=== PATIENT | female | born 1960 | race Caucasian/White ===

== ENCOUNTER → 2016-06-07 | Outpatient (CLI) | payer MEDICARE ==
[~2016-06-07] MED LIST: *CXR; /CIPR75TA; ACET65TA; AMBIEN10 PO; AMO500 PO; AMOXIL875 PO; ASPI81TA85 PO; ASTELIN NASAL; AUG500 PO; BENZAMYCGE TOPICAL; BIRTH CONTROL; CAHNTIXC PO; CARV12.5 PO; CHAN0.5P PO; CIPRO500 PO; CLOP75TA2 PO; CRES40TA PO; CYCL10TA PO; DARVOCET-N PO; DARVON PO; DARVON-N1 PO; DOXYCYC100 PO; EFFE150C PO; EFFEXORXL1 PO; FERREX PO; FLECTOR TOPICAL; FOLI1TAB2 PO; HABITROL14 TOPICAL; HABITROL2 TOPICAL; HABITROL7 TOPICAL; LESCOLXL80 PO; LEVAQUI500 PO; LEVO25TA5 PO; LIDO5DIS36 TD; LOESTRIN24 PO; MICRONOR PO; MOTRIN6 PO; MOTRIN800 PO; NABU50TA PO; NAPR500T2 PO; NAPROSY500 PO; NEXIUM40 PO; NICODERM TOPICAL; NICORETTE PO; OMEP40CA2 PO; OMEPRAZ40 PO; OXYC1TAB15 PO; OXYC1TAB23 PO; PANT40TA2 PO; PHENERGA25 PO; PRAVACHOL4 PO; PREVACID30 PO; PREVMIS PO; PROM125TA PO; PROTONIX40 PO; PYRIDIU200 PO; REGLAN10 PO; ROBITUSSDM PO; ROBITUSSIN PO; SENOKOTTAB PO; SKELAXIN8 PO; SUCR1TA PO; TOPA50TA7 PO; TRAZ100T; TRAZ100T4 PO; TRAZODON10 PO; TYLENOL PO; TYLENOL#3 PO; TYLENOLCOD PO; ULTRAM50 PO; ULTRTA PO; VALI10TA PO; VALT500T PO; VENL100T; VENL225T PO; VICO5TAB; VICODIN PO; ZANTAC150 PO; ZOVI5CRE4 EXT; ZOVIRAXCR TOPICAL; [UNRECOGNIZED DRUG - CODE]; [UNRECOGNIZED DRUG - CODE] TOPICAL; [UNRECOGNIZED DRUG - OTHER] PO
--- NOTE | 2016-06-07 09:37 | REP ---
Digital diagnostic unilateral right breast mammography with CAD: History: 6-month followup right breast mammogram. Comparison mammography November 14, 2015 and November 12, 2015 showed a 1.1 cm elongate neodensity. Possible hematoma versus dilated duct versus other lesion. Comparison is also made with prior mammography from April 11, 2013. Today's mammographic findings: Routine views of the right breast are augmented by magnified focal spot compression CC, MLO and true MLO views the right breast. The previously noted 1 cm inferomedial quadrant mammographic opacity has resolved. Scattered mild fibroglandular elements are again seen in a pattern which is unchanged from the 2013 prior study. There are normal appearing lymph nodes in the right axilla. No neodensity, spiculation, architectural distortion or microcalcification is observed. No worrisome skin change is seen. Impression: BIRADS category 2 benign right breast mammography. The previously noted density has resolved mammographically. Routine bilateral screening mammography recommended in October or November of 2016. This mammogram was interpreted with the aid of an FDA-approved computer-aided detection system. The patient states she/he had a clinical breast exam in 6 months ago. The patient letter being requested is M1. Signed by Aleksandr Mullins MD 06/07/2016 10:19 A
== END ==
LOC: M RAD 08:39
PROVIDERS: ATTEND Family Medicine
DX: R92.8 Other abnormal and inconclusive findings on diagnostic imaging of breast (principal)

== ENCOUNTER → 2016-08-05 | Outpatient (REF) | payer MEDICARE ==
[2016-08-05 12:44] LABS: BASO % 0.6 % (0.0-1.0); EOS # 0.4 K/mm3 (0.0-0.50); EOS % 5.1 % (0.0-3.0); LARGE UNSTAINED CELL # 0.2 K/mm3 (0.0-0.4); LYMPH # 2.4 K/mm3 (1.5-4.5); LYMPH % 31.2 % (24.0-44.0); MEAN CORPUSCULAR HEMOGLOBIN 32.1 pg (27.0-33.0); MEAN CORPUSCULAR HGB CONC 32.6 g/dl (32.0-36.5); MEAN CORPUSCULAR VOLUME 98.7 fl (80.0-96.0); MONO # 0.6 K/mm3 (0.0-0.8); MONO % 7.7 % (0.0-5.0); NEUTROPHILS # 4.1 K/mm3 (1.8-7.7); NEUTROPHILS % 53.4 % (36.0-66.0); PLATELET COUNT, AUTOMATED 273 k/mm3 (150-450); RED CELL DISTRIBUTION WIDTH 13.6 % (11.5-14.5); WHITE BLOOD COUNT 7.8 K/mm3 (4.0-10.0)
[2016-08-05 12:48] LABS: ALBUMIN 3.8 GM/DL (3.2-5.2); ALBUMIN/GLOBULIN RATIO 1.15 (1.00-1.93); ALKALINE PHOSPHATASE 100 U/L (45-117); ALT/SGPT 21 U/L (12-78); ANION GAP 6 MEQ/L (8-16); AST/SGOT 15 U/L (15-37); BILIRUBIN,TOTAL 0.4 MG/DL (0.2-1.0); BLOOD UREA NITROGEN 13 MG/DL (7-18); CALCIUM LEVEL 9.4 MG/DL (8.5-10.1); CARBON DIOXIDE LEVEL 30 MEQ/L (21-32); CHLORIDE LEVEL 107 MEQ/L (98-107); CHOLESTEROL LEVEL 190 MG/DL (<200); CREATININE FOR GFR 0.95 MG/DL (0.55-1.02); GLOMERULAR FILTRATION RATE > 60.0 (>51); GLUCOSE, FASTING 113 MG/DL (70-105); MAGNESIUM LEVEL 2.3 MG/DL (1.8-2.4); POTASSIUM SERUM 4.3 MEQ/L (3.5-5.1); SODIUM LEVEL 143 MEQ/L (136-145); TOTAL PROTEIN 7.1 GM/DL (6.4-8.2); TRIGLYCERIDES LEVEL 181 MG/DL (<150)
== END ==
LOC: M SFHCPLAZ 08:10
PROVIDERS: ATTEND Family Medicine
DX: K27.9 Peptic ulcer, site unspecified, unspecified as acute or chronic, without hemorrhage or perforation (principal); E78.5 Hyperlipidemia, unspecified

== ENCOUNTER → 2016-11-03 | Outpatient (CLI) | payer MEDICARE ==
--- NOTE | 2016-11-03 14:49 | REP ---
REASON: Bilateral pain. PRIOR: Right knee 07/03/2010. Five views of the right knee show lateral compartmental marginal osteophytosis increased from the prior exam. The compartments are symmetric and well maintained. There is no acute fracture or dislocation. IMPRESSION: Progressed lateral compartment degenerative changes, as described above. Signed by Can Lopez DO 11/03/2016 03:34 P
== END ==
LOC: M RAD 11:10
PROVIDERS: ATTEND Physician Assistant Medical
DX: M17.0 Bilateral primary osteoarthritis of knee (principal)

== ENCOUNTER → 2016-11-30 | Outpatient (CLI) | payer MEDICARE ==
[~2016-11-30] MED LIST changes: -FOLI1TAB2 PO; +FOLI1TAB4 PO; -LIDO5DIS36 TD; +LIDO5DIS41 TD; +NABU500T PO; -NABU50TA PO; -NAPR500T2 PO; +NAPR500T3 PO; +PROM12.55 PO; -PROM125TA PO; -TOPA50TA7 PO; +TOPA50TA8 PO; +TRAZ-136 PO; -TRAZ100T4 PO
--- NOTE | 2016-11-30 14:16 | REPMRS ---
Patient History The patient states she has not had a clinical breast exam in over a year. Patient is postmenopausal. Family history of prostate cancer in 2 maternal uncles and colorectal cancer in maternal uncle. Digital Woman Screen Mammo: November 30, 2016 - Exam #: [id number] Bilateral CC and MLO view(s) were taken. Technologist: Ashlie Mendoza, Technologist Prior study comparison: June 07, 2016, right breast digital mammo diagnostic unilateral, performed at [facility]. November 14, 2015, right breast digital mammo diagnostic unilateral, performed at [facility]. FINDINGS: There are scattered fibroglandular densities. There has been no change in the appearance of the mammogram from the prior studies. There is a mild amount of scattered fibroglandular density which is fairly symmetric. There is no interval development of dominant mass, architectural distortion, or clustered microcalcification suggestive of malignancy. ASSESSMENT: BI-RADS/ACR category 1 mammogram. Negative. Recommendation Routine screening mammogram in 1 year (for women over age 40). This mammogram was interpreted with the aid of an FDA-approved computer-aided dectection system. Electronically Signed By: Moreno Mullins MD 11/30/16 [id number]
== END ==
LOC: M WHC 12:55
PROVIDERS: ATTEND Family Medicine
DX: Z12.31 Encounter for screening mammogram for malignant neoplasm of breast (principal); Z78.0 Asymptomatic menopausal state

== ENCOUNTER → 2016-12-21 | Outpatient (REF) | payer MEDICARE ==
[2016-12-21 12:46] LABS: BASO % 0.5 % (0.0-1.0); EOS # 0.3 K/mm3 (0.0-0.50); EOS % 3.8 % (0.0-3.0); LARGE UNSTAINED CELL # 0.1 K/mm3 (0.0-0.4); LYMPH # 2.4 K/mm3 (1.5-4.5); LYMPH % 27.1 % (24.0-44.0); MEAN CORPUSCULAR HEMOGLOBIN 32.9 pg (27.0-33.0); MEAN CORPUSCULAR HGB CONC 33.1 g/dl (32.0-36.5); MEAN CORPUSCULAR VOLUME 99.4 fl (80.0-96.0); MONO # 0.7 K/mm3 (0.0-0.8); MONO % 8.5 % (0.0-5.0); NEUTROPHILS # 5.1 K/mm3 (1.8-7.7); NEUTROPHILS % 59.1 % (36.0-66.0); PLATELET COUNT, AUTOMATED 242 k/mm3 (150-450); RED CELL DISTRIBUTION WIDTH 13.8 % (11.5-14.5); WHITE BLOOD COUNT 8.6 K/mm3 (4.0-10.0)
[2016-12-21 13:27] LABS: MICROSCOPIC INDICATED? MAN YES (NO)
[2016-12-21 13:32] LABS: MICROSCOPIC EXAM PERFORMED; RBC, URINE 0-1 /hpf (0-3); SQUAMOUS EPITHELIAL CELL URINE SMALL AMOUNT /hpf (SMALL AMT); WBC, URINE 0-1 /hpf (0-3)
[2016-12-21 13:33] LABS: BACTERIA, URINE NONE SEEN; HYALINE CAST, URINE NONE SEEN /lpf (0-1); TRANSITIONAL EPI CELLS, URINE SMALL AMOUNT /hpf
[2016-12-21 14:38] LABS: ALBUMIN 3.6 GM/DL (3.2-5.2); ALBUMIN/GLOBULIN RATIO 1.13 (1.00-1.93); ALKALINE PHOSPHATASE 105 U/L (45-117); ALT/SGPT 19 U/L (12-78); ANION GAP 6 MEQ/L (8-16); AST/SGOT 10 U/L (15-37); BILIRUBIN,TOTAL 0.3 MG/DL (0.2-1.0); BLOOD UREA NITROGEN 16 MG/DL (7-18); CALCIUM LEVEL 9.2 MG/DL (8.5-10.1); CARBON DIOXIDE LEVEL 26 MEQ/L (21-32); CHLORIDE LEVEL 112 MEQ/L (98-107); CREATININE FOR GFR 1.01 MG/DL (0.55-1.02); FREE T4 0.99 NG/DL (0.76-1.46); GLOMERULAR FILTRATION RATE > 60.0 (>51); GLUCOSE, FASTING 105 MG/DL (70-105); POTASSIUM SERUM 4.3 MEQ/L (3.5-5.1); SODIUM LEVEL 144 MEQ/L (136-145); TOTAL PROTEIN 6.8 GM/DL (6.4-8.2)
[2016-12-26 14:08] LABS: BENZODIAZEPINES, URINE SCREEN See Final Results ng/mL (Cutoff=200); METHADONE, URINE SCREEN Negative ng/mL (Cutoff=300); OXYCODONE URINE Positive (.); pH, URINE 5.5 (4.5-8.9)
== END ==
LOC: M SFHCADAM 07:56
PROVIDERS: ATTEND Family Medicine
DX: K27.9 Peptic ulcer, site unspecified, unspecified as acute or chronic, without hemorrhage or perforation (principal); E03.9 Hypothyroidism, unspecified; R73.01 Impaired fasting glucose; M17.11 Unilateral primary osteoarthritis, right knee; Z79.891 Long term (current) use of opiate analgesic

== ENCOUNTER → 2016-12-21 | Outpatient (REF) | payer MEDICARE ==
[2016-12-21 13:55] LABS: BASO % 0.3 % (0.0-1.0); EOS # 0.3 K/mm3 (0.0-0.50); EOS % 3.8 % (0.0-3.0); LARGE UNSTAINED CELL # 0.2 K/mm3 (0.0-0.4); LYMPH # 2.6 K/mm3 (1.5-4.5); LYMPH % 27.6 % (24.0-44.0); MEAN CORPUSCULAR HEMOGLOBIN 32.6 pg (27.0-33.0); MEAN CORPUSCULAR HGB CONC 32.8 g/dl (32.0-36.5); MEAN CORPUSCULAR VOLUME 99.4 fl (80.0-96.0); MONO # 0.7 K/mm3 (0.0-0.8); MONO % 8.2 % (0.0-5.0); NEUTROPHILS # 5.2 K/mm3 (1.8-7.7); NEUTROPHILS % 58.2 % (36.0-66.0); PLATELET COUNT, AUTOMATED 246 k/mm3 (150-450); RED CELL DISTRIBUTION WIDTH 13.8 % (11.5-14.5); WHITE BLOOD COUNT 8.9 K/mm3 (4.0-10.0)
[2016-12-21 15:13] LABS: ERYTHROCYTE SEDIMENTATION RATE 4 mm/hr (0-30)
[2016-12-23 00:07] LABS: Lyme Disease IgG/IgM Antibodie <0.91 ISR (0.00-0.90); Lyme Disease IgM Ab Quantitati <0.80 index (0.00-0.79)
== END ==
LOC: M LABDRWAD 13:13
PROVIDERS: ATTEND Physician Assistant
DX: M17.11 Unilateral primary osteoarthritis, right knee (principal)

== ENCOUNTER → 2017-04-01 | Outpatient (REF) | payer MEDICARE ==
[2017-04-01 13:26] LABS: BASO # 0.1 10^3/uL (0.0-0.2); BASO % 0.5 % (0.0-1.0); EOS # 0.3 10^3/uL (0.0-0.50); EOS % 3.3 % (0.0-3.0); IMMATURE GRANULOCYTE % 0.4 % (0-0); LYMPH # 3.7 10^3/uL (1.5-4.5); LYMPH % 39.3 % (24.0-44.0); MEAN CORPUSCULAR HEMOGLOBIN 31.8 pg (27.0-33.0); MEAN CORPUSCULAR HGB CONC 32.8 g/dl (32.0-36.5); MEAN CORPUSCULAR VOLUME 96.9 fl (80.0-96.0); MONO # 1.1 10^3/uL (0.0-0.8); MONO % 11.5 % (0.0-5.0); NEUTROPHILS # 4.3 10^3/uL (1.8-7.7); PLATELET COUNT, AUTOMATED 253 10^3/uL (150-450); RED CELL DISTRIBUTION WIDTH 14.3 % (11.5-14.5); WHITE BLOOD COUNT 9.5 10^3/uL (4.0-10.0)
== END ==
LOC: M SFHCPLAZ 11:29
PROVIDERS: ATTEND Physician Assistant Medical
DX: K27.9 Peptic ulcer, site unspecified, unspecified as acute or chronic, without hemorrhage or perforation (principal)
CPT/HCPCS: 85025; G0463

== ENCOUNTER → 2017-05-18 | Outpatient (REF) | payer MEDICARE | LOC: M LAB REF 12:16 | DX: M54.5 Low back pain (principal) | CPT/HCPCS: 87086 ==

== ENCOUNTER → 2017-05-19 | Outpatient (REF) | payer MEDICARE ==
[2017-05-19 14:20] LABS: HEMATOCRIT 46.8 % (36.0-47.0)
[2017-05-19 14:41] LABS: ALBUMIN 4.4 GM/DL (3.2-5.2); ALBUMIN/GLOBULIN RATIO 1.38 (1.00-1.93); ALKALINE PHOSPHATASE 107 U/L (45-117); ALT/SGPT 20 U/L (12-78); ANION GAP 7 MEQ/L (8-16); AST/SGOT 13 U/L (7-37); BILIRUBIN,TOTAL 0.4 MG/DL (0.2-1.0); BLOOD UREA NITROGEN 14 MG/DL (7-18); C REACTIVE PROTEIN QUANTITATIV < 0.30 MG/DL (0.00-0.30); CALCIUM LEVEL 9.5 MG/DL (8.5-10.1); CARBON DIOXIDE LEVEL 27 MEQ/L (21-32); CHLORIDE LEVEL 108 MEQ/L (98-107); CHOLESTEROL LEVEL 156 MG/DL (<200); CHOLESTEROL RISK RATIO 2.476 (<5); CPK CREATINE PHOSPHOKINASE 54 U/L (26-192); CREATININE FOR GFR 0.95 MG/DL (0.55-1.02); GLOMERULAR FILTRATION RATE > 60.0 (>51); GLUCOSE, FASTING 104 MG/DL (70-105); HDL CHOLESTEROL 63 MG/DL (>40); LDL CHOLESTEROL 67.4 MG/DL (<100); MAGNESIUM LEVEL 2.5 MG/DL (1.8-2.4); NON-HDL-C 93 MG/DL; POTASSIUM SERUM 4.3 MEQ/L (3.5-5.1); SODIUM LEVEL 142 MEQ/L (136-145); TOTAL PROTEIN 7.6 GM/DL (6.4-8.2); TRIGLYCERIDES LEVEL 128 MG/DL (<150)
[2017-05-19 14:51] LABS: VITAMIN B12 LEVEL 761 PG/ML (247-911)
[2017-05-20 11:49] LABS: PRETREATED FOLATE FOR RBCFOL 13.6 NG/ML; RBC FOLATE 610.3 NG/ML (280-791)
== END ==
LOC: M SFHCPLAZ 09:54
DX: E78.5 Hyperlipidemia, unspecified (principal); I10 Essential (primary) hypertension; E53.8 Deficiency of other specified B group vitamins
CPT/HCPCS: 82550

== ENCOUNTER → 2017-05-25 | Outpatient (CLI) | payer MEDICARE | LOC: M RAD 14:57 | DX: N20.0 Calculus of kidney (principal); N28.1 Cyst of kidney, acquired; K57.30 Diverticulosis of large intestine without perforation or abscess without bleeding | CPT/HCPCS: 74176 ==

== ENCOUNTER → 2017-07-06 | Outpatient (CLI) | payer MEDICARE | LOC: M RAD 10:55 | DX: Z12.2 Encounter for screening for malignant neoplasm of respiratory organs (principal); Z87.891 Personal history of nicotine dependence | CPT/HCPCS: G0297 ==

== ENCOUNTER → 2017-08-29 | Outpatient (REF) | payer MEDICARE ==
[2017-08-29 15:45] LABS: BASO # 0.1 10^3/uL (0.0-0.2); BASO % 0.5 % (0.0-1.0); EOS # 0.3 10^3/uL (0.0-0.50); EOS % 2.5 % (0.0-3.0); HEMOGLOBIN 15.7 g/dl (12.0-15.5); IMMATURE GRANULOCYTE % 0.3 % (0-3.0); LYMPH # 4.4 10^3/uL (1.5-4.5); LYMPH % 39.6 % (24.0-44.0); MEAN CORPUSCULAR HEMOGLOBIN 31.7 pg (27.0-33.0); MEAN CORPUSCULAR HGB CONC 32.7 g/dl (32.0-36.5); MONO # 1.4 10^3/uL (0.0-0.8); MONO % 12.6 % (0.0-5.0); NEUTROPHILS # 4.9 10^3/uL (1.8-7.7); NEUTROPHILS % 44.5 % (36.0-66.0); PLATELET COUNT, AUTOMATED 245 10^3/uL (150-450); RED BLOOD COUNT 4.95 10^6/uL (4.00-5.40); RED CELL DISTRIBUTION WIDTH 13.9 % (11.5-14.5); WHITE BLOOD COUNT 11.1 10^3/uL (4.0-10.0)
[2017-08-29 15:47] LABS: APPEARANCE, URINE CLEAR (CLEAR); BACTERIA, URINE AUTO NEGATIVE (NEGATIVE); BILIRUBIN, URINE AUTO NEGATIVE (NEGATIVE); BLOOD, URINE BLOOD 1+ (NEGATIVE); COLOR, URINE YELLOW (YELLOW); GLUCOSE, URINE (UA) AUTO NEGATIVE (NEGATIVE); KETONE, URINE AUTO NEGATIVE (NEGATIVE); LEUKOCYTE ESTERASE, URINE AUTO NEGATIVE (NEGATIVE); NITRITE, URINE AUTO NEGATIVE (NEGATIVE); PROTEIN, URINE AUTO NEGATIVE (NEGATIVE); RBC, URINE AUTO 2 /HPF (0-3); SPECIFIC GRAVITY URINE AUTO 1.017 (1.002-1.035); SQUAMOUS EPITHELIAL CELL UR AU 0 /HPF (0-6); UROBILINOGEN, URINE AUTO 0.2 mg/dL (0.0-2.0); WBC, URINE AUTO 0 /HPF (0-3)
[2017-08-29 16:05] LABS: ALBUMIN 3.7 GM/DL (3.2-5.2); ALBUMIN/GLOBULIN RATIO 1.19 (1.00-1.93); ALKALINE PHOSPHATASE 111 U/L (45-117); ALT/SGPT 15 U/L (12-78); ANION GAP 7 MEQ/L (8-16); AST/SGOT 13 U/L (7-37); BILIRUBIN,TOTAL 0.2 MG/DL (0.2-1.0); BLOOD UREA NITROGEN 13 MG/DL (7-18); CALCIUM LEVEL 8.9 MG/DL (8.5-10.1); CARBON DIOXIDE LEVEL 28 MEQ/L (21-32); CHLORIDE LEVEL 109 MEQ/L (98-107); CREATININE FOR GFR 0.72 MG/DL (0.55-1.30); GLOMERULAR FILTRATION RATE > 60.0 (>51); GLUCOSE, FASTING 69 MG/DL (70-100); POTASSIUM SERUM 3.9 MEQ/L (3.5-5.1); SODIUM LEVEL 144 MEQ/L (136-145); TOTAL PROTEIN 6.8 GM/DL (6.4-8.2)
== END ==
LOC: M SFHCPLAZ 12:15
DX: R10.31 Right lower quadrant pain (principal); Z87.442 Personal history of urinary calculi
CPT/HCPCS: 80053

== ENCOUNTER 2017-09-01 12:10 | Emergency (ER) | payer MEDICARE ==
[2017-09-01 13:05] LABS: BASO # 0.1 10^3/uL (0.0-0.2); BASO % 0.5 % (0.0-1.0); EOS # 0.3 10^3/uL (0.0-0.50); EOS % 2.7 % (0.0-3.0); HEMATOCRIT 49.6 % (36.0-47.0); HEMOGLOBIN 16.7 g/dl (12.0-15.5); IMMATURE GRANULOCYTE % 0.3 % (0-3.0); LYMPH # 4.3 10^3/uL (1.5-4.5); MEAN CORPUSCULAR HEMOGLOBIN 32.5 pg (27.0-33.0); MEAN CORPUSCULAR HGB CONC 33.7 g/dl (32.0-36.5); MEAN CORPUSCULAR VOLUME 96.5 fl (80.0-96.0); MONO # 1.2 10^3/uL (0.0-0.8); MONO % 12.6 % (0.0-5.0); NEUTROPHILS # 3.7 10^3/uL (1.8-7.7); NEUTROPHILS % 38.9 % (36.0-66.0); PLATELET COUNT, AUTOMATED 253 10^3/uL (150-450); RED BLOOD COUNT 5.14 10^6/uL (4.00-5.40); WHITE BLOOD COUNT 9.6 10^3/uL (4.0-10.0)
[2017-09-01] MEDS: MORPHINE 4 MG/ML 1ML VIAL/SYRINGE (J2270) IV ×2 (13:08→14:08)
[2017-09-01] MEDS: NS 1,000 ML IV (13:08)
[2017-09-01 14:06] LABS: ALBUMIN 3.9 GM/DL (3.2-5.2); ALBUMIN/GLOBULIN RATIO 1.03 (1.00-1.93); ALKALINE PHOSPHATASE 123 U/L (45-117); ALT/SGPT 23 U/L (12-78); AMYLASE 92 U/L (25-115); ANION GAP 5 MEQ/L (8-16); AST/SGOT 20 U/L (7-37); BILIRUBIN,DIRECT < 0.1 MG/DL (0.0-0.2); BILIRUBIN,TOTAL 0.3 MG/DL (0.2-1.0); BLOOD UREA NITROGEN 12 MG/DL (7-18); CALCIUM LEVEL 9.3 MG/DL (8.5-10.1); CARBON DIOXIDE LEVEL 27 MEQ/L (21-32); CHLORIDE LEVEL 110 MEQ/L (98-107); GLOMERULAR FILTRATION RATE > 60.0 (>51); GLUCOSE, FASTING 96 MG/DL (70-100); LIPASE 421 U/L (73-393); SODIUM LEVEL 142 MEQ/L (136-145); TOTAL PROTEIN 7.7 GM/DL (6.4-8.2)
[2017-09-01 14:15] LABS: CALCIUM OXALATE CRYSTALS RFX SMALL; KETONE, URINE AUTO RFX NEGATIVE (NEGATIVE); LEUKOCYTE ESTERASE UR AUTO RFX NEGATIVE (NEGATIVE); MUCUS, URINE RFX SMALL (NEGATIVE); NITRITE, URINE AUTO RFX NEGATIVE (NEGATIVE); RBC, URINE AUTO RFX 4 /HPF (0-3); SPECIFIC GRAVITY UR AUTO RFX 1.024 (1.002-1.035); SQUAM EPITHELIAL CELL UR AURFX 0 /HPF (0-6); WBC, URINE AUTO RFX 1 /HPF (0-3)
[2017-09-01] MEDS: CIPROFLOXACIN 500 MG TAB PO (14:37)
== END 2017-09-01 14:45 | disposition home or self-care (01) ==
LOC: M ED 12:10
DX: N20.2 Calculus of kidney with calculus of ureter (principal); N23 Unspecified renal colic; N28.1 Cyst of kidney, acquired; F03.90 Unspecified dementia, unspecified severity, without behavioral disturbance, psychotic disturbance, mood disturbance, and anxiety; I34.1 Nonrheumatic mitral (valve) prolapse; K21.9 Gastro-esophageal reflux disease without esophagitis; G47.33 Obstructive sleep apnea (adult) (pediatric); E78.70 Disorder of bile acid and cholesterol metabolism, unspecified; Z87.442 Personal history of urinary calculi; Z86.73 Personal history of transient ischemic attack (TIA), and cerebral infarction without residual deficits; Z98.890 Other specified postprocedural states; Z90.81 Acquired absence of spleen; Z88.8 Allergy status to other drugs, medicaments and biological substances; Z88.2 Allergy status to sulfonamides; Z79.890 Hormone replacement therapy; Z79.899 Other long term (current) drug therapy
CPT/HCPCS: J2270

== ENCOUNTER 2017-09-04 11:03 | Emergency (ER) | payer MEDICARE ==
[2017-09-04 12:40] LABS: KETONE, URINE AUTO RFX TRACE mg/dL (NEGATIVE); LEUKOCYTE ESTERASE UR AUTO RFX NEGATIVE (NEGATIVE); MUCUS, URINE RFX SMALL (NEGATIVE); NITRITE, URINE AUTO RFX NEGATIVE (NEGATIVE); RBC, URINE AUTO RFX 4 /HPF (0-3); SPECIFIC GRAVITY UR AUTO RFX 1.028 (1.002-1.035); SQUAM EPITHELIAL CELL UR AURFX 0 /HPF (0-6); WBC, URINE AUTO RFX 1 /HPF (0-3)
== END 2017-09-04 14:10 | disposition home or self-care (01) ==
LOC: M ED 11:03
DX: R10.9 Unspecified abdominal pain (principal); N28.1 Cyst of kidney, acquired; E03.9 Hypothyroidism, unspecified; B00.9 Herpesviral infection, unspecified; F43.10 Post-traumatic stress disorder, unspecified; F03.90 Unspecified dementia, unspecified severity, without behavioral disturbance, psychotic disturbance, mood disturbance, and anxiety; F33.9 Major depressive disorder, recurrent, unspecified; F41.9 Anxiety disorder, unspecified; F19.11 Other psychoactive substance abuse, in remission; Z79.890 Hormone replacement therapy; Z79.01 Long term (current) use of anticoagulants; Z79.899 Other long term (current) drug therapy; Z88.8 Allergy status to other drugs, medicaments and biological substances; Z88.2 Allergy status to sulfonamides; Z86.73 Personal history of transient ischemic attack (TIA), and cerebral infarction without residual deficits; Z87.442 Personal history of urinary calculi; Z86.79 Personal history of other diseases of the circulatory system; Z98.890 Other specified postprocedural states
CPT/HCPCS: 76775

== ENCOUNTER → 2017-09-27 | Outpatient (REF) | payer MEDICARE ==
[2017-09-27 13:33] LABS: APPEARANCE, URINE CLEAR (CLEAR); BACTERIA, URINE AUTO NEGATIVE (NEGATIVE); BILIRUBIN, URINE AUTO NEGATIVE (NEGATIVE); BLOOD, URINE BLOOD 2+ (NEGATIVE); COLOR, URINE STRAW (YELLOW); GLUCOSE, URINE (UA) AUTO NEGATIVE (NEGATIVE); KETONE, URINE AUTO NEGATIVE (NEGATIVE); LEUKOCYTE ESTERASE, URINE AUTO NEGATIVE (NEGATIVE); NITRITE, URINE AUTO NEGATIVE (NEGATIVE); PROTEIN, URINE AUTO NEGATIVE (NEGATIVE); RBC, URINE AUTO 0 /HPF (0-3); SPECIFIC GRAVITY URINE AUTO 1.006 (1.002-1.035); SQUAMOUS EPITHELIAL CELL UR AU 0 /HPF (0-6); UROBILINOGEN, URINE AUTO 0.2 mg/dL (0.0-2.0); WBC, URINE AUTO 0 /HPF (0-3)
== END ==
LOC: M SMT 13:13
DX: R30.0 Dysuria (principal)
CPT/HCPCS: 81001

== ENCOUNTER → 2017-10-14 | Outpatient (REF) | payer MEDICARE ==
[2017-10-14 12:33] LABS: BASO # 0.1 10^3/uL (0.0-0.2); BASO % 0.6 % (0.0-1.0); EOS # 0.4 10^3/uL (0.0-0.50); EOS % 4.3 % (0.0-3.0); HEMATOCRIT 50.8 % (36.0-47.0); HEMOGLOBIN 16.9 g/dl (12.0-15.5); IMMATURE GRANULOCYTE % 0.1 % (0-3.0); LYMPH # 2.7 10^3/uL (1.5-4.5); LYMPH % 33.5 % (24.0-44.0); MEAN CORPUSCULAR HEMOGLOBIN 32.1 pg (27.0-33.0); MEAN CORPUSCULAR HGB CONC 33.3 g/dl (32.0-36.5); MEAN CORPUSCULAR VOLUME 96.6 fl (80.0-96.0); MONO # 0.8 10^3/uL (0.0-0.8); MONO % 9.7 % (0.0-5.0); NEUTROPHILS # 4.2 10^3/uL (1.8-7.7); NEUTROPHILS % 51.8 % (36.0-66.0); PLATELET COUNT, AUTOMATED 273 10^3/uL (150-450); RED BLOOD COUNT 5.26 10^6/uL (4.00-5.40); RED CELL DISTRIBUTION WIDTH 14.6 % (11.5-14.5); WHITE BLOOD COUNT 8.1 10^3/uL (4.0-10.0)
[2017-10-14 12:36] LABS: BACTERIA, URINE AUTO NEGATIVE (NEGATIVE); MUCUS, URINE SMALL (NEGATIVE); RBC, URINE AUTO 4 /HPF (0-3); SQUAMOUS EPITHELIAL CELL UR AU 1 /HPF (0-6); WBC, URINE AUTO 1 /HPF (0-3)
[2017-10-14 12:54] LABS: ALBUMIN 3.8 GM/DL (3.2-5.2); ALBUMIN/GLOBULIN RATIO 1.15 (1.00-1.93); ALKALINE PHOSPHATASE 114 U/L (45-117); ALT/SGPT 21 U/L (12-78); ANION GAP 5 MEQ/L (8-16); AST/SGOT 15 U/L (7-37); BILIRUBIN,TOTAL 0.2 MG/DL (0.2-1.0); BLOOD UREA NITROGEN 15 MG/DL (7-18); CALCIUM LEVEL 8.9 MG/DL (8.5-10.1); CARBON DIOXIDE LEVEL 27 MEQ/L (21-32); CHLORIDE LEVEL 111 MEQ/L (98-107); CREATININE FOR GFR 0.83 MG/DL (0.55-1.30); FREE T4 0.92 NG/DL (0.76-1.46); GLOMERULAR FILTRATION RATE > 60.0 (>51); GLUCOSE, FASTING 105 MG/DL (70-100); POTASSIUM SERUM 4.7 MEQ/L (3.5-5.1); SODIUM LEVEL 143 MEQ/L (136-145); TOTAL PROTEIN 7.1 GM/DL (6.4-8.2)
[2017-10-14 13:11] LABS: ESTIMATED AVERAGE GLUCOSE 137 MG/DL (60-110); HEMOGLOBIN A1c 6.4 %
[2017-10-15 14:10] LABS: INSULIN LEVEL 22.9 uIU/mL (2.6-24.9)
== END ==
LOC: M SFHCADAM 07:13
DX: E78.5 Hyperlipidemia, unspecified (principal); R73.01 Impaired fasting glucose; E03.9 Hypothyroidism, unspecified; R31.29 Other microscopic hematuria
CPT/HCPCS: 83525

== ENCOUNTER → 2018-01-04 | Outpatient (CLI) | payer MEDICARE | LOC: M SMT 13:11 | DX: M25.711 Osteophyte, right shoulder (principal); M79.601 Pain in right arm | CPT/HCPCS: 73060 ==

== ENCOUNTER → 2018-02-20 | Outpatient (REF) | payer MEDICARE ==
[2018-02-20 12:53] LABS: HEMATOCRIT 49.8 % (36.0-47.0)
[2018-02-20 12:59] LABS: APPEARANCE, URINE HAZY (CLEAR); BACTERIA, URINE AUTO NEGATIVE (NEGATIVE); BILIRUBIN, URINE AUTO NEGATIVE (NEGATIVE); BLOOD, URINE BLOOD 1+ (NEGATIVE); COLOR, URINE YELLOW (YELLOW); GLUCOSE, URINE (UA) AUTO NEGATIVE (NEGATIVE); KETONE, URINE AUTO TRACE mg/dL (NEGATIVE); LEUKOCYTE ESTERASE, URINE AUTO NEGATIVE (NEGATIVE); MUCUS, URINE SMALL (NEGATIVE); NITRITE, URINE AUTO NEGATIVE (NEGATIVE); PROTEIN, URINE AUTO NEGATIVE (NEGATIVE); RBC, URINE AUTO 4 /HPF (0-3); SPECIFIC GRAVITY URINE AUTO 1.019 (1.002-1.035); SQUAMOUS EPITHELIAL CELL UR AU 0 /HPF (0-6); WBC, URINE AUTO 0 /HPF (0-3)
[2018-02-20 13:35] LABS: ALBUMIN 3.9 GM/DL (3.2-5.2); ALBUMIN/GLOBULIN RATIO 1.18 (1.00-1.93); ALKALINE PHOSPHATASE 101 U/L (45-117); ALT/SGPT 19 U/L (12-78); ANION GAP 6 MEQ/L (8-16); AST/SGOT 18 U/L (7-37); BILIRUBIN,TOTAL 0.3 MG/DL (0.2-1.0); BLOOD UREA NITROGEN 10 MG/DL (7-18); C REACTIVE PROTEIN QUANTITATIV < 0.30 MG/DL (0.00-0.30); CALCIUM LEVEL 8.8 MG/DL (8.5-10.1); CARBON DIOXIDE LEVEL 29 MEQ/L (21-32); CHLORIDE LEVEL 107 MEQ/L (98-107); CHOLESTEROL LEVEL 133 MG/DL (<200); CHOLESTEROL RISK RATIO 2.216 (<5); GLOMERULAR FILTRATION RATE > 60.0 (>51); GLUCOSE, FASTING 109 MG/DL (70-100); HDL CHOLESTEROL 60 MG/DL (>40); LDL CHOLESTEROL 56 MG/DL (<100); NON-HDL-C 73 MG/DL; POTASSIUM SERUM 4.3 MEQ/L (3.5-5.1); SODIUM LEVEL 142 MEQ/L (136-145); TOTAL PROTEIN 7.2 GM/DL (6.4-8.2); TRIGLYCERIDES LEVEL 85 MG/DL (<150)
[2018-02-20 14:01] LABS: ESTIMATED AVERAGE GLUCOSE 123 MG/DL (60-110); HEMOGLOBIN A1c 5.9 %
[2018-02-20 14:06] LABS: MALB URINE SIEMENS 16.8 MG/L
[2018-02-20 14:09] LABS: MAU/CREAT RATIO 9.7 MCG/MG (0.0-30.0)
[2018-02-21 11:04] LABS: PRETREATED FOLATE FOR RBCFOL 13.7 NG/ML; RBC FOLATE 577.7 NG/ML (280-791)
== END ==
LOC: M LABDRAW1 12:37
DX: E78.5 Hyperlipidemia, unspecified (principal); R73.01 Impaired fasting glucose; M47.814 Spondylosis without myelopathy or radiculopathy, thoracic region; E53.8 Deficiency of other specified B group vitamins
CPT/HCPCS: 82607

== ENCOUNTER → 2018-03-28 | Outpatient (REF) | payer MEDICARE | LOC: M LAB REF 12:23 | DX: R30.0 Dysuria (principal) | CPT/HCPCS: 87086 ==

== ENCOUNTER → 2018-05-06 | Outpatient (CLI) | payer MEDICARE ==
[~2018-05-06] MED LIST changes: +ACET30TAB PO; +CIPR-249 PO; +DIAZ10TA2 PO; -EFFE150C PO; +EFFE150C2 PO; +FOLI1TAB11 PO; -FOLI1TAB4 PO; +NABU-126 PO; -NABU500T PO; +NAPR-885 PO; -NAPR500T3 PO; -PANT40TA2 PO; +PANT40TA3 PO; -PROM12.55 PO; +PROM12.56 PO; +PYRI1TAB5 PO; -TRAZ-136 PO; +TRAZ-163 PO
--- NOTE | 2018-05-10 09:54 | REP ---
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 Comparison MRI study thoracic spine November 06, 2009. TECHNIQUE: Sagittal and axial T1- and T2-weighted scans are acquired in the usual fashion with and without fat saturation. Sequences include spin echo, turbo spin-echo, and STIR imaging sequences. MRI FINDINGS: There is a small to moderate right central focal disc protrusion at the T7-T8 disc level which flattens the ventral margin of the thoracic cord and subtly displaces it dorsally. This is essentially unchanged. No central canal stenosis is noted at this level. The T7-8 disc remains narrowed. No cord lesion is seen. There is bulging and posterior disc spurring at the T8-9 disc level, which is also unchanged. Some diffuse disc bulging is seen at T9-10 which appears to be a new finding. No cord compression is seen. There is a tiny central disc protrusion at the T6-7. No cord compression is seen. No other thoracic disc protrusion is evident. Incidental note is made of a 4.7 cm cyst in the upper pole of the left kidney. IMPRESSION: Degenerative spondylosis changes in the thoracic spine with focal disc protrusions again noted at T7-8 and to a lesser extent, T6-7. There is disc bulging at the T8-9 and T9-10. A left renal cyst is noted. Electronically Signed by Aleksandr Mullins MD 05/10/2018 10:30 A
== END ==
LOC: M RAD 09:33
PROVIDERS: ATTEND Nurse Practitioner Family
DX: M47.814 Spondylosis without myelopathy or radiculopathy, thoracic region (principal); M51.24 Other intervertebral disc displacement, thoracic region; N28.1 Cyst of kidney, acquired

== ENCOUNTER → 2018-06-26 | Outpatient (REF) | payer MEDICARE ==
[2018-06-26 12:55] LABS: BASO # 0.1 10^3/uL (0.0-0.2); BASO % 0.5 % (0.0-1.0); EOS # 0.6 10^3/uL (0.0-0.50); EOS % 5.3 % (0.0-3.0); HEMATOCRIT 50.3 % (36.0-47.0); HEMOGLOBIN 16.5 g/dl (12.0-15.5); LYMPH # 3.6 10^3/uL (1.5-4.5); LYMPH % 34.2 % (24.0-44.0); MEAN CORPUSCULAR HEMOGLOBIN 32.4 pg (27.0-33.0); MEAN CORPUSCULAR HGB CONC 32.8 g/dl (32.0-36.5); MEAN CORPUSCULAR VOLUME 98.8 fl (80.0-96.0); MONO # 1.2 10^3/uL (0.0-0.8); MONO % 11.1 % (0.0-5.0); NEUTROPHILS # 5.1 10^3/uL (1.8-7.7); NEUTROPHILS % 48.5 % (36.0-66.0); PLATELET COUNT, AUTOMATED 224 10^3/uL (150-450); RED BLOOD COUNT 5.09 10^6/uL (4.00-5.40); WHITE BLOOD COUNT 10.6 10^3/uL (4.0-10.0)
[2018-06-26 12:57] LABS: ALBUMIN 3.8 GM/DL (3.2-5.2); ALT/SGPT 20 U/L (12-78); BILIRUBIN,TOTAL 0.3 MG/DL (0.2-1.0); BLOOD UREA NITROGEN 20 MG/DL (7-18); CALCIUM LEVEL 8.9 MG/DL (8.5-10.1); CARBON DIOXIDE LEVEL 32 MEQ/L (21-32); CHLORIDE LEVEL 103 MEQ/L (98-107); FREE T4 0.98 NG/DL (0.76-1.46); GLOMERULAR FILTRATION RATE > 60.0 (>51); GLUCOSE, FASTING 106 MG/DL (70-100); MAGNESIUM LEVEL 2.2 MG/DL (1.8-2.4); SODIUM LEVEL 140 MEQ/L (136-145)
[2018-06-26 13:04] LABS: HEMOGLOBIN A1c 6.3 %
== END ==
LOC: M SFHCADAM 07:57
PROVIDERS: ATTEND Family Medicine
DX: I10 Essential (primary) hypertension (principal); E03.9 Hypothyroidism, unspecified; R73.01 Impaired fasting glucose

== ENCOUNTER → 2018-07-20 | Outpatient (CLI) | payer MEDICARE ==
--- NOTE | 2018-07-20 15:37 | REP ---
Low-dose chest CT without contrast: History: Lung cancer screening. History of nicotine dependence. Comparison study: July 06, 2017. CT findings: There are linear fibrotic changes in both bases. Two stable benign adore fissural nodules are noted along the major fissure on the left in the perihilar region unchanged. No new pulmonary parenchymal nodule is appreciated. There are surgical clips in the left upper quadrant of the abdomen. Impression: Lung RADS category one negative screening CT study. Repeat screening recommended 1 year. Electronically Signed by Aleksandr Mullins MD 07/20/2018 03:28 P
== END ==
LOC: M RAD 12:46
PROVIDERS: ATTEND Family Medicine
DX: Z12.2 Encounter for screening for malignant neoplasm of respiratory organs (principal); Z87.891 Personal history of nicotine dependence

== ENCOUNTER → 2018-08-14 | Outpatient (REF) | payer MEDICARE | LOC: M LAB REF 10:40 | PROVIDERS: ATTEND Physician Assistant | DX: N39.0 Urinary tract infection, site not specified (principal) ==

== ENCOUNTER → 2018-09-29 | Outpatient (REF) | payer MEDICARE ==
[~2018-09-29] MED LIST changes: +ACET-716 PO; -ACET30TAB PO; -VENL225T PO; +VENL225T5 PO
[2018-09-29 13:52] LABS: BASO % 0.4 % (0.0-1.0); EOS # 0.2 10^3/uL (0.0-0.50); EOS % 2.4 % (0.0-3.0); HEMATOCRIT 50.5 % (36.0-47.0); HEMOGLOBIN 16.8 g/dl (12.0-15.5); LYMPH # 4.1 10^3/uL (1.5-4.5); LYMPH % 44.1 % (24.0-44.0); MEAN CORPUSCULAR HEMOGLOBIN 33.2 pg (27.0-33.0); MEAN CORPUSCULAR HGB CONC 33.3 g/dl (32.0-36.5); MEAN CORPUSCULAR VOLUME 99.8 fl (80.0-96.0); MONO # 1.1 10^3/uL (0.0-0.8); MONO % 12.3 % (0.0-5.0); NEUTROPHILS # 3.7 10^3/uL (1.8-7.7); NEUTROPHILS % 40.6 % (36.0-66.0); PLATELET COUNT, AUTOMATED 262 10^3/uL (150-450); RED BLOOD COUNT 5.06 10^6/uL (4.00-5.40); WHITE BLOOD COUNT 9.2 10^3/uL (4.0-10.0)
[2018-09-29 14:19] LABS: APPEARANCE, URINE CLEAR (CLEAR); BACTERIA, URINE AUTO NEGATIVE (NEGATIVE); BILIRUBIN, URINE AUTO NEGATIVE (NEGATIVE); BLOOD, URINE BLOOD 1+ (NEGATIVE); COLOR, URINE YELLOW (YELLOW); GLUCOSE, URINE (UA) AUTO NEGATIVE (NEGATIVE); KETONE, URINE AUTO NEGATIVE (NEGATIVE); LEUKOCYTE ESTERASE, URINE AUTO NEGATIVE (NEGATIVE); MUCUS, URINE SMALL (NEGATIVE); NITRITE, URINE AUTO NEGATIVE (NEGATIVE); PROTEIN, URINE AUTO NEGATIVE (NEGATIVE); RBC, URINE AUTO 10 /HPF (0-3); SPECIFIC GRAVITY URINE AUTO 1.028 (1.002-1.035); SQUAMOUS EPITHELIAL CELL UR AU 0 /HPF (0-6); UROBILINOGEN, URINE AUTO 0.2 mg/dL (0.0-2.0); WBC, URINE AUTO 0 /HPF (0-3)
[2018-09-29 14:23] LABS: ALBUMIN 3.9 GM/DL (3.2-5.2); ALT/SGPT 21 U/L (12-78); BILIRUBIN,TOTAL 0.4 MG/DL (0.2-1.0); BLOOD UREA NITROGEN 23 MG/DL (7-18); CALCIUM LEVEL 9.5 MG/DL (8.5-10.1); CARBON DIOXIDE LEVEL 27 MEQ/L (21-32); CHLORIDE LEVEL 105 MEQ/L (98-107); CREATININE FOR GFR 0.94 MG/DL (0.55-1.30); GLOMERULAR FILTRATION RATE > 60.0 (>51); GLUCOSE, FASTING 91 MG/DL (70-100); POTASSIUM SERUM 4.3 MEQ/L (3.5-5.1); SODIUM LEVEL 138 MEQ/L (136-145); TOTAL PROTEIN 7.5 GM/DL (6.4-8.2)
== END ==
LOC: M SFHCPLAZ 11:55
PROVIDERS: ATTEND Nurse Practitioner Family
DX: R35.0 Frequency of micturition (principal); R10.32 Left lower quadrant pain
CPT/HCPCS: 36415; 80053; 81001; 84145; 85025; 87086; G0463

== ENCOUNTER → 2018-10-31 | Outpatient (REF) | payer MEDICARE ==
[2018-10-31 14:33] LABS: FREE T4 0.94 NG/DL (0.76-1.46); THYROID STIMULATING HORMONE 0.981 uIU/ML (0.358-3.740)
[2018-10-31 14:39] LABS: HEMOGLOBIN A1c 6.1 %
[2018-11-01 14:47] LABS: IgG P18 AB Absent (.); IgG P23 AB Absent (.); IgG P28 AB Absent (.); IgG P30 AB Absent (.); IgG P39 AB Absent (.); IgG P41 AB Present (.); IgG P45 AB Absent (.); IgG P66 AB Absent (.); IgG P93 AB Absent (.); IgM P23 AB Absent (.); IgM P39 AB Absent (.); IgM P41 AB Absent (.); LYME IgG WB INTERPRETATION Negative (.); LYME IgM WB INTERPRETATION Negative (.)
[2018-11-06 14:24] LABS: Lyme Disease IgG/IgM Antibodie <0.91 ISR (0.00-0.90); Lyme Disease IgM Ab Quantitati <0.80 index (0.00-0.79); RNA POLYMERASE III IgG AB 6.9 Units/ml (.)
== END ==
LOC: M SFHCPLAZ 09:54
PROVIDERS: ATTEND Physician Assistant Medical
DX: R73.01 Impaired fasting glucose (principal); D75.89 Other specified diseases of blood and blood-forming organs; E03.9 Hypothyroidism, unspecified; R53.83 Other fatigue
CPT/HCPCS: 36415; 82607; 83036; 83520; 84439; 84443; 86617; G0463

== ENCOUNTER → 2019-02-12 | Outpatient (REF) | payer MEDICARE ==
[2019-02-12 13:32] LABS: BASO # 0.1 10^3/uL (0.0-0.2); BASO % 0.6 % (0.0-1.0); EOS # 0.5 10^3/uL (0.0-0.5); EOS % 5.5 % (0.0-3.0); HEMATOCRIT 48.8 % (36.0-47.0); HEMOGLOBIN 15.9 g/dl (12.0-15.5); LYMPH # 3.3 10^3/uL (1.5-5.0); LYMPH % 38.7 % (24.0-44.0); MEAN CORPUSCULAR HEMOGLOBIN 33.1 pg (27.0-33.0); MEAN CORPUSCULAR HGB CONC 32.6 g/dl (32.0-36.5); MEAN CORPUSCULAR VOLUME 101.5 fl (80.0-96.0); MONO % 11.9 % (0.0-5.0); NEUTROPHILS # 3.7 10^3/uL (1.5-8.5); NEUTROPHILS % 42.9 % (36.0-66.0); PLATELET COUNT, AUTOMATED 240 10^3/uL (150-450); RED BLOOD COUNT 4.81 10^6/uL (4.00-5.40); WHITE BLOOD COUNT 8.6 10^3/uL (4.0-10.0)
[2019-02-12 13:42] LABS: C REACTIVE PROTEIN QUANTITATIV < 0.30 MG/DL (0.00-0.30); CHOLESTEROL LEVEL 149 MG/DL (<200); CHOLESTEROL RISK RATIO 2.442 (<5); CPK CREATINE PHOSPHOKINASE 77 U/L (26-192); HDL CHOLESTEROL 61 MG/DL (>40); LDL CHOLESTEROL 65 MG/DL (<100); NON-HDL-C 88 MG/DL; TRIGLYCERIDES LEVEL 113 MG/DL (<150)
[2019-02-12 14:20] LABS: HEMOGLOBIN A1c 5.7 %
== END ==
LOC: M SFHCADAM 08:09
PROVIDERS: ATTEND Family Medicine
DX: D75.89 Other specified diseases of blood and blood-forming organs (principal); E78.5 Hyperlipidemia, unspecified; R73.01 Impaired fasting glucose; M51.34 Other intervertebral disc degeneration, thoracic region

== ENCOUNTER → 2019-03-13 | Outpatient (REF) | payer MEDICARE ==
[~2019-03-13] MED LIST changes: -OMEP40CA2 PO; +OMEP40CA97 PO
== END ==
LOC: M SFHCWAGY 11:34
PROVIDERS: ATTEND Nurse Practitioner Family
DX: Z12.4 Encounter for screening for malignant neoplasm of cervix (principal); N95.8 Other specified menopausal and perimenopausal disorders

== ENCOUNTER → 2019-03-13 | Outpatient (REF) | payer MEDICARE | LOC: M SFHCWAGY 13:10 | PROVIDERS: ATTEND Nurse Practitioner Family | DX: R10.9 Unspecified abdominal pain (principal) ==

== ENCOUNTER → 2019-03-13 | Outpatient (CLI) | payer MEDICARE ==
--- NOTE | 2019-03-13 13:08 | REPMRS ---
Patient History The patient states she had a clinical breast exam in 02/2019. Patient is postmenopausal. Family history of colorectal cancer and prostate cancer in maternal uncle, prostate cancer and colorectal cancer in maternal uncle, pancreatic cancer in maternal grandfather, pancreatic cancer at age 40 in maternal cousin. No Hormone Replacement Therapy 3D TOMOSYNTHESIS WAS PERFORMED. The [facility] lifetime risk for breast cancer is 7.0%. Digital Woman Screen Mammo: March 13, 2019 - Exam #: [id number] Bilateral CC and MLO view(s) were taken. Technologist: Kaur Preciado, Technologist Prior study comparison: November 30, 2016, digital woman screen mammo performed at [facility]. June 07, 2016, right breast digital mammo diagnostic unilateral, performed at [facility]. FINDINGS: The breast tissue is heterogeneously dense. This may lower the sensitivity of mammography. There has been no change in the appearance of the mammogram from the prior studies. There is a moderate amount of residual fibroglandular tissue which is fairly symmetric. There is no interval development of dominant mass, areas of architectural distortion, or clustered microcalcification typical of malignancy. Assessment: BI-RADS/ACR category 1 mammogram. Negative Mammogram. Recommendation Routine screening mammogram in 1 year (for women over age 40). This mammogram was interpreted with the aid of an FDA-approved computer-aided dectection system. Electronically Signed By: Solomon Hubbard MD 03/13/19 [id number]
== END ==
LOC: M WHC 11:02
PROVIDERS: ATTEND Family Medicine
DX: Z01.419 Encounter for gynecological examination (general) (routine) without abnormal findings (principal); Z12.31 Encounter for screening mammogram for malignant neoplasm of breast; Z78.0 Asymptomatic menopausal state; R10.9 Unspecified abdominal pain
CPT/HCPCS: 77063; 77067; 81002; 87086; G0101; G0123

== ENCOUNTER → 2019-06-07 | Outpatient (REF) | payer MEDICARE ==
[~2019-06-07] MED LIST changes: -TRAZ-163 PO; +TRAZ-257 PO
[2019-06-07 13:36] LABS: HEMATOCRIT 48.1 % (36.0-47.0)
[2019-06-07 13:39] LABS: BASO # 0.1 10^3/uL (0.0-0.2); BASO % 0.6 % (0.0-1.0); EOS # 0.4 10^3/uL (0.0-0.5); EOS % 3.3 % (0.0-3.0); HEMATOCRIT 48.3 % (36.0-47.0); LYMPH # 3.8 10^3/uL (1.5-5.0); LYMPH % 34.8 % (24.0-44.0); MEAN CORPUSCULAR HEMOGLOBIN 32.9 pg (27.0-33.0); MEAN CORPUSCULAR HGB CONC 33.1 g/dl (32.0-36.5); MEAN CORPUSCULAR VOLUME 99.2 fl (80.0-96.0); MONO # 1.1 10^3/uL (0.0-0.8); MONO % 10.2 % (0.0-5.0); NEUTROPHILS # 5.5 10^3/uL (1.5-8.5); NEUTROPHILS % 50.9 % (36.0-66.0); PLATELET COUNT, AUTOMATED 255 10^3/uL (150-450); RED BLOOD COUNT 4.87 10^6/uL (4.00-5.40); WHITE BLOOD COUNT 10.9 10^3/uL (4.0-10.0)
[2019-06-07 14:06] LABS: ALBUMIN 3.8 GM/DL (3.2-5.2); ALT/SGPT 19 U/L (12-78); BILIRUBIN,TOTAL 0.5 MG/DL (0.2-1.0); BLOOD UREA NITROGEN 15 MG/DL (7-18); CALCIUM LEVEL 9.6 MG/DL (8.5-10.1); CARBON DIOXIDE LEVEL 29 MEQ/L (21-32); CHLORIDE LEVEL 104 MEQ/L (98-107); CREATININE FOR GFR 0.91 MG/DL (0.55-1.30); GLOMERULAR FILTRATION RATE > 60.0 (>51); GLUCOSE, FASTING 102 MG/DL (70-100); MAGNESIUM LEVEL 2.2 MG/DL (1.8-2.4); POTASSIUM SERUM 4.2 MEQ/L (3.5-5.1); SODIUM LEVEL 141 MEQ/L (136-145); TOTAL PROTEIN 6.9 GM/DL (6.4-8.2)
[2019-06-07 17:48] LABS: APPEARANCE, URINE CLEAR (CLEAR); BACTERIA, URINE AUTO NEGATIVE (NEGATIVE); BILIRUBIN, URINE AUTO NEGATIVE (NEGATIVE); BLOOD, URINE BLOOD 1+ (NEGATIVE); COLOR, URINE YELLOW (YELLOW); GLUCOSE, URINE (UA) AUTO NEGATIVE (NEGATIVE); KETONE, URINE AUTO NEGATIVE (NEGATIVE); LEUKOCYTE ESTERASE, URINE AUTO NEGATIVE (NEGATIVE); NITRITE, URINE AUTO NEGATIVE (NEGATIVE); PROTEIN, URINE AUTO NEGATIVE (NEGATIVE); RBC, URINE AUTO 9 /HPF (0-3); SPECIFIC GRAVITY URINE AUTO 1.017 (1.002-1.035); SQUAMOUS EPITHELIAL CELL UR AU 0 /HPF (0-6); UROBILINOGEN, URINE AUTO 0.2 mg/dL (0.0-2.0); WBC, URINE AUTO 1 /HPF (0-3)
[2019-06-08 14:07] LABS: ERYTHROPOIETIN 11.4 mIU/mL (2.6-18.5); INSULIN LEVEL 15.6 uIU/mL (2.6-24.9)
== END ==
LOC: M SFHCPLAZ 11:13
PROVIDERS: ATTEND Family Medicine
DX: R30.0 Dysuria (principal); D75.89 Other specified diseases of blood and blood-forming organs; R73.01 Impaired fasting glucose; E53.8 Deficiency of other specified B group vitamins

== ENCOUNTER → 2019-06-11 | Outpatient (CLI) | payer MEDICARE ==
--- NOTE | 2019-06-11 19:30 | REP ---
RIGHT KNEE SERIES, FIVE VIEWS: Five views of the right knee are performed. There is no acute fracture or dislocation. There is slight narrowing of the medial and lateral joint spaces as well as the lateral patellofemoral joint. There is mild spurring of the lateral tibial plateau as well as the medial and lateral tibial spines. There is a very small joint effusion. IMPRESSION: Very mild degenerative changes. Electronically Signed by Solomon Hubbard MD 06/13/2019 01:17 P
--- NOTE | 2019-06-12 07:58 | REP ---
CERVICAL SPINE SERIES: Full cervical spine series is performed. There is no compression fracture. There is normal cervical lordosis and alignment. I do not see significant subluxation with flexion and extension. There is mild diffuse spurring of C4 through C7. There is mild disc space narrowing and subchondral sclerosis at C4-5, C5-6, and C6-7. There is mild diffuse narrowing and sclerosis at the posterior facet joints. Uncovertebral spurring appears to cause mild bilateral foraminal narrowing at C4-5 and C5-6 as well as mild narrowing of C6-7 on the left. IMPRESSION: Degenerative changes as above. Electronically Signed by Solomon Hubbard MD 06/13/2019 01:25 P
== END ==
LOC: M ADAMS 11:47
PROVIDERS: ATTEND Family Medicine
DX: M51.34 Other intervertebral disc degeneration, thoracic region (principal); M25.461 Effusion, right knee; M25.761 Osteophyte, right knee; M25.78 Osteophyte, vertebrae; M48.02 Spinal stenosis, cervical region; M50.321 Other cervical disc degeneration at C4-C5 level; M50.322 Other cervical disc degeneration at C5-C6 level; M50.323 Other cervical disc degeneration at C6-C7 level

== ENCOUNTER 2019-09-14 11:53 | Emergency (ER) | payer MEDICARE ==
[~2019-09-14] VITALS: Ht 172.7 cm; Wt 87.6 kg
[~2019-09-14 11:53] MED LIST changes: +CYCL-707 PO; -CYCL10TA PO
[2019-09-14] MEDS ORDERED: FLUO10CA15 (12:04)
[2019-09-14] MEDS ORDERED: NS 1,000 ML IV ONE (12:45)
[2019-09-14] MEDS ORDERED: ONDANSETRON 4MG/2ML VIAL IV ONE (12:45)
[2019-09-14 12:54] LABS: BASO % 0.2 % (0.0-1.0); EOS # 0.1 10^3/uL (0.0-0.5); EOS % 0.6 % (0.0-3.0); HEMATOCRIT 48.2 % (36.0-47.0); HEMOGLOBIN 16.2 g/dl (12.0-15.5); LYMPH # 2.2 10^3/uL (1.5-5.0); LYMPH % 12.4 % (24.0-44.0); MEAN CORPUSCULAR HEMOGLOBIN 32.1 pg (27.0-33.0); MEAN CORPUSCULAR HGB CONC 33.6 g/dl (32.0-36.5); MEAN CORPUSCULAR VOLUME 95.6 fl (80.0-96.0); MONO # 1.6 10^3/uL (0.0-0.8); MONO % 9.4 % (0.0-5.0); NEUTROPHILS # 13.5 10^3/uL (1.5-8.5); PLATELET COUNT, AUTOMATED 236 10^3/uL (150-450); RED BLOOD COUNT 5.04 10^6/uL (4.00-5.40); WHITE BLOOD COUNT 17.5 10^3/uL (4.0-10.0)
[2019-09-14 13:21] LABS: ALBUMIN 3.9 GM/DL (3.2-5.2); ALT/SGPT 21 U/L (12-78); BILIRUBIN,DIRECT 0.2 MG/DL (0.0-0.2); BILIRUBIN,TOTAL 0.5 MG/DL (0.2-1.0); LIPASE 83 U/L (73-393); TOTAL PROTEIN 7.1 GM/DL (6.4-8.2)
[2019-09-14 13:41] LABS: CK-MB VALUE MASS 1.5 NG/ML (<3.6); CPK CREATINE PHOSPHOKINASE 104 U/L (26-192); FREE T4 1.04 NG/DL (0.76-1.46); MB/CK RELATIVE INDEX 1.44 (< OR =4); THYROID STIMULATING HORMONE 0.463 uIU/ML (0.358-3.740); TROPONIN I < 0.02 NG/ML (< 0.10)
[2019-09-14] MEDS ORDERED: ACETAMINOPHEN 325 MG TAB PO ONE (13:45)
[2019-09-14 13:51] LABS: AMPHETAMINES LEVEL URINE NEGATIVE (NEGATIVE); BARBITURATES URINE NEGATIVE (NEGATIVE); BENZODIAZEPINES URINE POSITIVE (NEGATIVE); CANNABINOIDS URINE NEGATIVE (NEGATIVE); COCAINE METABOLITE URINE NEGATIVE (NEGATIVE); METHADONE URINE NEGATIVE (NEGATIVE); OPIATES URINE NEGATIVE (NEGATIVE); PHENCYCLIDINE URINE NEGATIVE (NEGATIVE)
--- NOTE | 2019-09-14 14:19 | REP ---
ABDOMINAL SERIES: Three views. HISTORY: Abdomen pain. Comparison chest x-ray October 14, 2015. FINDINGS: Upright chest radiograph shows minimal bibasilar linear fibrosis. Lung melo are otherwise clear. There is no evidence of infiltrate or free subdiaphragmatic air. Heart is not enlarged. The aorta is somewhat tortuous. Supine and erect views of the abdomen show clips in the left upper quadrant. There is some scattered large bowel gas in the right and left colon and rectum. There are also a few loops of air-filled small bowel in the central abdomen at least one of which displays an air-fluid level on the upright radiograph. There is no evidence of free air. No mass or organomegaly is seen. Flank stripes are intact. Psoas margins are symmetric. IMPRESSION: Nonspecific central abdominal small bowel loops. Postoperative changes in the left upper quadrant. No evidence of free air. Mild bibasilar linear fibrosis in the lungs. Electronically Signed by Aleksandr Mullins MD 09/14/2019 04:17 P
[2019-09-14] MEDS ORDERED: LevoFLOXacin IV 750 MG in IV 1 EA IV ONE (15:00)
[2019-09-14] MEDS ORDERED: POTASSIUM CHLORIDE 10 MEQ SR TABLET PO ONE (15:00)
--- NOTE | 2019-09-14 15:24 | REP ---
CT ANGIOGRAM CHEST: TECHNIQUE: Axial contrast enhanced images from the thoracic inlet to the upper abdomen using 100 mL Isovue-370 intravenous contrast material with multiplanar reformations. COMPARISON: CT 07/20/[address] evidence of pulmonary embolism. There is no thoracic aortic aneurysm or dissection. The heart is upper limits of normal in size. There is no pleural or pericardial effusion. There is no mediastinal, hilar or chest wall lymphadenopathy. Scattered patchy nonspecific infiltrates are seen in the inferior aspect of the right upper lobe and in the right middle lobe with mild ill-defined infiltrate or atelectasis in the right lower lobe. No infiltrate is seen on the left. There are degenerative changes of the spine. IMPRESSION: No evidence of pulmonary embolism. Scattered patchy infiltrates in the right mid and lower lung zones. Electronically Signed by Solomon Hubbard MD 09/14/2019 03:45 P
--- NOTE | 2019-09-14 15:32 | REP ---
CT ABDOMEN AND PELVIS WITH IV CONTRAST: TECHNIQUE: Axial contrast enhanced images from the lung bases to the pubic symphysis using 100 mL Isovue-370 intravenous contrast material with multiplanar reformations. The liver is unremarkable. The gallbladder is collapsed. 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 The adrenal glands are normal. No pancreatic mass or pancreatic duct dilatation is seen. There are bilateral renal cysts. There is no hydronephrosis. There is no abdominal aortic aneurysm. There is no adenopathy. There is no free air or free fluid. There is no bowel wall thickening or inflammation. The appendix is normal. There is sigmoid diverticulosis without acute diverticulitis. No pelvis mass is seen. Urinary bladder is mildly distended and grossly unremarkable. IMPRESSION: No acute abnormalities. Sigmoid diverticulosis without acute diverticulitis. No appendicitis. No free air, free fluid or obstruction. Electronically Signed by Solomon Hubbard MD 09/14/2019 03:45 P
[2019-09-14 17:05] LABS: CK-MB VALUE MASS 1.9 NG/ML (<3.6); CPK CREATINE PHOSPHOKINASE 102 U/L (26-192); MB/CK RELATIVE INDEX 1.86 (< OR =4); TROPONIN I < 0.02 NG/ML (< 0.10)
[2019-09-14 17:13] VITALS: O2SAT 93
[2019-09-14] MEDS ORDERED: LEVA750T7 PO (17:24)
[2019-09-14 17:43] VITALS: BP 102/63
--- NOTE | 2019-09-14 22:52 | ECGEPIP ---
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
--- NOTE | 2019-09-14 22:56 | ECGEPIP ---
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
== END 2019-09-14 17:59 | disposition home or self-care (01) ==
LOC: M ED 11:53
DX: J18.1 Lobar pneumonia, unspecified organism (principal); N39.0 Urinary tract infection, site not specified; K57.30 Diverticulosis of large intestine without perforation or abscess without bleeding; R11.10 Vomiting, unspecified; R19.7 Diarrhea, unspecified; M54.5 Low back pain; I10 Essential (primary) hypertension; K21.9 Gastro-esophageal reflux disease without esophagitis; J45.909 Unspecified asthma, uncomplicated; G47.33 Obstructive sleep apnea (adult) (pediatric); Z86.73 Personal history of transient ischemic attack (TIA), and cerebral infarction without residual deficits; F43.10 Post-traumatic stress disorder, unspecified; F41.9 Anxiety disorder, unspecified; F32.9 Major depressive disorder, single episode, unspecified; G43.909 Migraine, unspecified, not intractable, without status migrainosus; E03.9 Hypothyroidism, unspecified; F19.10 Other psychoactive substance abuse, uncomplicated; Z87.19 Personal history of other diseases of the digestive system; Z88.2 Allergy status to sulfonamides; Z88.5 Allergy status to narcotic agent; Z79.899 Other long term (current) drug therapy; Z79.02 Long term (current) use of antithrombotics/antiplatelets
CPT/HCPCS: 71275; 74021; 74177; 80047; 80076; 80307; 81001; 82550; 82553; 83605; 83690; 84439; 84443; 84484; 85025; 87086; 93005; 94010; 96361; 96365; 96366; 96375; 99284; J1956; J2405

== ENCOUNTER → 2019-09-21 | Outpatient (REF) | payer MEDICARE ==
[~2019-09-21] MED LIST changes: +FLUO10CA15; +LEVA750T7 PO
[2019-09-21 16:12] LABS: BASO # 0.1 10^3/uL (0.0-0.2); BASO % 0.6 % (0.0-1.0); EOS # 0.4 10^3/uL (0.0-0.5); EOS % 3.6 % (0.0-3.0); HEMATOCRIT 47.3 % (36.0-47.0); LYMPH # 3.9 10^3/uL (1.5-5.0); LYMPH % 35.4 % (24.0-44.0); MEAN CORPUSCULAR HEMOGLOBIN 33.1 pg (27.0-33.0); MEAN CORPUSCULAR HGB CONC 33.8 g/dl (32.0-36.5); MEAN CORPUSCULAR VOLUME 97.7 fl (80.0-96.0); MONO # 1.3 10^3/uL (0.0-0.8); MONO % 11.5 % (0.0-5.0); NEUTROPHILS # 5.3 10^3/uL (1.5-8.5); NEUTROPHILS % 48.6 % (36.0-66.0); PLATELET COUNT, AUTOMATED 270 10^3/uL (150-450); RED BLOOD COUNT 4.84 10^6/uL (4.00-5.40); WHITE BLOOD COUNT 10.9 10^3/uL (4.0-10.0)
[2019-09-21 16:19] LABS: ALBUMIN 3.8 GM/DL (3.2-5.2); ALT/SGPT 21 U/L (12-78); BILIRUBIN,TOTAL 0.3 MG/DL (0.2-1.0); BLOOD UREA NITROGEN 10 MG/DL (7-18); CALCIUM LEVEL 9.5 MG/DL (8.5-10.1); CARBON DIOXIDE LEVEL 32 MEQ/L (21-32); CHLORIDE LEVEL 103 MEQ/L (98-107); CREATININE FOR GFR 0.94 MG/DL (0.55-1.30); GLOMERULAR FILTRATION RATE > 60.0 (>51); GLUCOSE, FASTING 94 MG/DL (70-100); POTASSIUM SERUM 4.1 MEQ/L (3.5-5.1); SODIUM LEVEL 140 MEQ/L (136-145); TOTAL PROTEIN 6.8 GM/DL (6.4-8.2)
[2019-09-21 16:22] LABS: OSMOLALITY SERUM 286 MOSM/KG (275-295); OSMOLALITY URINE 504 MOSM/KG (500-800)
[2019-09-21 16:58] LABS: SODIUM,RANDOM URINE 60 MEQ/L
== END ==
LOC: M SFHCPLAZ 13:14
PROVIDERS: ATTEND Family Medicine
DX: J18.9 Pneumonia, unspecified organism (principal)
CPT/HCPCS: 36415; 80053; 83930; 83935; 84300; 85025; G0463

== ENCOUNTER → 2019-09-25 | Outpatient (CLI) | payer MEDICARE | LOC: M LAB 15:30 | PROVIDERS: ATTEND Family Medicine | DX: R06.00 Dyspnea, unspecified (principal) ==

== ENCOUNTER → 2019-09-25 | Outpatient (CLI) | payer MEDICARE ==
--- NOTE | 2019-09-25 15:29 | REPPI ---
CHEST X-RAY: Two views. HISTORY: Dyspnea on exertion. Comparison chest x-rays from October 13, 2015. FINDINGS: There are surgical clips in the left upper quadrant of the abdomen. The lungs are symmetrically somewhat hyperinflated but free of infiltrate. There is a mild coarse linear fibrosis in the right and left lower lobe posteriorly overlying the spine on the lateral radiograph. Lung melo are otherwise clear. The heart is not enlarged. The aorta is tortuous. There are degenerative changes in the thoracic spine. Pulmonary vasculature is not increased. IMPRESSION: Mild bibasilar linear fibrosis. Otherwise no acute disease. Electronically Signed by Aleksandr Mullins MD 09/25/2019 03:50 P
== END ==
LOC: M PLAIMG 14:38
PROVIDERS: ATTEND Family Medicine
DX: J84.10 Pulmonary fibrosis, unspecified (principal); R06.00 Dyspnea, unspecified

== ENCOUNTER → 2019-09-25 | Outpatient (REF) | payer MEDICARE ==
[2019-09-25 15:56] LABS: ABG BASE EXCESS 2.1 (-2.0-2.0); ABG HCO3 25.2 MEQ/L (22.0-26.0); ABG O2 SATURATION 95.9 % (95.0-99.0); ABG PARTIAL PRESSURE CO2 34.9 mmHg (35.0-45.0); ABG PARTIAL PRESSURE O2 72.7 mmHg (75.0-100.0); ABG STANDARD HCO3 26.3 MEQ/L (22.0-26.0); ABG TOTAL CO2 26.3 MEQ/L (22.0-29.0); ABG pH (ARTERIAL) 7.477 UNITS (7.350-7.450)
[2019-09-25 17:13] LABS: ALBUMIN 3.4 GM/DL (3.2-5.2); ALT/SGPT 25 U/L (12-78); BILIRUBIN,TOTAL 0.2 MG/DL (0.2-1.0); BLOOD UREA NITROGEN 9 MG/DL (7-18); C REACTIVE PROTEIN QUANTITATIV < 0.30 MG/DL (0.00-0.30); CALCIUM LEVEL 8.9 MG/DL (8.5-10.1); CARBON DIOXIDE LEVEL 33 MEQ/L (21-32); CHLORIDE LEVEL 104 MEQ/L (98-107); CREATININE FOR GFR 0.99 MG/DL (0.55-1.30); GLOMERULAR FILTRATION RATE > 60.0 (>51); GLUCOSE, FASTING 78 MG/DL (70-100); NT-PRO BNP 147 PG/ML (<125); POTASSIUM SERUM 3.9 MEQ/L (3.5-5.1); SODIUM LEVEL 140 MEQ/L (136-145); TOTAL PROTEIN 6.1 GM/DL (6.4-8.2); TROPONIN I < 0.02 NG/ML (< 0.10)
[2019-09-25 17:17] LABS: BASO % 0.4 % (0.0-1.0); EOS # 0.4 10^3/uL (0.0-0.5); EOS % 3.7 % (0.0-3.0); HEMATOCRIT 45.4 % (36.0-47.0); LYMPH # 3.8 10^3/uL (1.5-5.0); LYMPH % 35.5 % (24.0-44.0); MEAN CORPUSCULAR HEMOGLOBIN 32.7 pg (27.0-33.0); MEAN CORPUSCULAR VOLUME 98.9 fl (80.0-96.0); MONO # 1.3 10^3/uL (0.0-0.8); MONO % 12.5 % (0.0-5.0); NEUTROPHILS # 5.1 10^3/uL (1.5-8.5); NEUTROPHILS % 47.6 % (36.0-66.0); PLATELET COUNT, AUTOMATED 269 10^3/uL (150-450); RED BLOOD COUNT 4.59 10^6/uL (4.00-5.40); WHITE BLOOD COUNT 10.7 10^3/uL (4.0-10.0)
== END ==
LOC: M SFHCPLAZ 14:36
PROVIDERS: ATTEND Family Medicine
DX: R06.00 Dyspnea, unspecified (principal)

== ENCOUNTER → 2019-11-02 | Outpatient (CLI) | payer MEDICARE ==
[~2019-11-02] MED LIST changes: +ALBU83IN INH; +AMLO2.5T3; -ASPI81TA85 PO; +ASPI81TA86 PO; +BUPR5DIS3; +CHLO125TA PO; +D31000TA2 PO; +DOXY100C37 PO; +DOXY100T27 PO; -FLUO10CA15; +FLUO10CA16 PO; +HM S0.65 NARES; +KEFL500C17 PO; +LEVOTAB10 PO; +MONT10TA10 PO; -NABU-126 PO; +NABU-51 PO; +ONDA4TAB6 PO; +PANT40TA29 PO; -PANT40TA3 PO; +PRED10TA2 PO; +PRED20TA PO; +TELM1TAB33; +TRAZ-189 PO; +xyzal
--- NOTE | 2019-11-02 13:00 | REP ---
REASON FOR EXAM: Knee pain. There are no priors for comparison. There is no history of trauma. The anterior and posterior horns of the medial meniscus are within normal limits. There is grade 1 and grade 2 signal change in the anterior horn of the lateral meniscus which abuts but does not appear to be contiguous with the inferior articular surface particularly in the anterior horn. The quadriceps and patellar tendons are intact. The medial and lateral collateral ligaments are intact. The anterior and posterior cruciate ligaments are intact. The medial and lateral patellar retinacula are intact. There is thinning and irregularity of all articular cartilages with tricompartmental marginal osteophytosis. There is a slight joint effusion and a small Cervantes's cyst. IMPRESSION: 1. The anterior horn of the lateral meniscus is torn. The preponderance of which is interstitial. 2. There are degenerative changes seen with tricompartmental chondromalacia and tricompartmental marginal osteophytosis. 3. Joint effusion and Cervantes's cyst. Electronically Signed by Can Lopez DO 11/02/2019 01:47 P
== END ==
LOC: M RAD 09:26
PROVIDERS: ATTEND Family Medicine
DX: M17.0 Bilateral primary osteoarthritis of knee (principal); S83.281A Other tear of lateral meniscus, current injury, right knee, initial encounter; M25.461 Effusion, right knee; M94.261 Chondromalacia, right knee; M71.21 Synovial cyst of popliteal space [Baker], right knee

== ENCOUNTER → 2019-12-11 | Outpatient (REF) | payer MEDICARE ==
[~2019-12-11] MED LIST changes: -ALBU83IN INH; -AMLO2.5T3; -DOXY100C37 PO; -DOXY100T27 PO; -HM S0.65 NARES; -KEFL500C17 PO; -LEVOTAB10 PO; -MONT10TA10 PO; -PRED10TA2 PO; -PRED20TA PO; -TELM1TAB33; -TRAZ-189 PO; -xyzal
[2020-01-14 14:02] LABS: HEMOGLOBIN A1c 5.7 %
[2020-01-14 14:03] LABS: ALBUMIN 4.2 GM/DL (3.2-5.2); ALT/SGPT 26 U/L (12-78); BILIRUBIN,TOTAL 0.4 MG/DL (0.2-1.0); BLOOD UREA NITROGEN 17 MG/DL (7-18); CALCIUM LEVEL 9.9 MG/DL (8.5-10.1); CARBON DIOXIDE LEVEL 27 MEQ/L (21-32); CHLORIDE LEVEL 105 MEQ/L (98-107); CHOLESTEROL LEVEL 197 MG/DL (<200); CHOLESTEROL RISK RATIO 3.177 (<5); CREATININE FOR GFR 0.89 MG/DL (0.55-1.30); FREE T4 0.89 NG/DL (0.76-1.46); GLOMERULAR FILTRATION RATE > 60.0 (>51); GLUCOSE, FASTING 91 MG/DL (70-100); HDL CHOLESTEROL 62 MG/DL (>40); LDL CHOLESTEROL 98 MG/DL (<100); NON-HDL-C 135 MG/DL; SODIUM LEVEL 138 MEQ/L (136-145); TOTAL PROTEIN 7.5 GM/DL (6.4-8.2); TRIGLYCERIDES LEVEL 185 MG/DL (<150)
== END ==
LOC: M SFHCPLAZ 14:31
PROVIDERS: ATTEND Family Medicine
DX: I50.9 Heart failure, unspecified (principal); E78.5 Hyperlipidemia, unspecified; Z86.73 Personal history of transient ischemic attack (TIA), and cerebral infarction without residual deficits; G89.29 Other chronic pain
CPT/HCPCS: 36415; 80053; 80061; 80307; 83036; 84439; 84443; 86140; G0463

== ENCOUNTER 2020-03-06 12:05 | Observation (INO) | payer MEDICARE ==
[~2020-03-06] VITALS: Ht 170.2 cm; Wt 94.5 kg
[~2020-03-06 12:05] MED LIST changes: -BUPR5DIS3; -CHLO125TA PO; -D31000TA2 PO; -ONDA4TAB6 PO
[2020-03-06] MEDS ORDERED: BUPR5DIS3 (12:17)
[2020-03-06 12:59] LABS: BASO # 0.1 10^3/uL (0.0-0.2); BASO % 0.5 % (0.0-1.0); EOS # 0.4 10^3/uL (0.0-0.5); EOS % 4.1 % (0.0-3.0); HEMATOCRIT 46.7 % (36.0-47.0); HEMOGLOBIN 15.7 g/dl (12.0-15.5); LYMPH # 3.6 10^3/uL (1.5-5.0); MEAN CORPUSCULAR HEMOGLOBIN 31.8 pg (27.0-33.0); MEAN CORPUSCULAR HGB CONC 33.6 g/dl (32.0-36.5); MEAN CORPUSCULAR VOLUME 94.7 fl (80.0-96.0); MONO # 1.2 10^3/uL (0.0-0.8); MONO % 11.3 % (0.0-5.0); NEUTROPHILS % 48.9 % (36.0-66.0); PLATELET COUNT, AUTOMATED 248 10^3/uL (150-450); RED BLOOD COUNT 4.93 10^6/uL (4.00-5.40); WHITE BLOOD COUNT 10.3 10^3/uL (4.0-10.0)
[2020-03-06 13:27] LABS: AMPHETAMINES LEVEL URINE NEGATIVE (NEGATIVE); BARBITURATES URINE NEGATIVE (NEGATIVE); BENZODIAZEPINES URINE POSITIVE (NEGATIVE); CANNABINOIDS URINE NEGATIVE (NEGATIVE); COCAINE METABOLITE URINE NEGATIVE (NEGATIVE); METHADONE URINE NEGATIVE (NEGATIVE); OPIATES URINE NEGATIVE (NEGATIVE); PHENCYCLIDINE URINE NEGATIVE (NEGATIVE)
[2020-03-06 13:34] LABS: ALT/SGPT 17 U/L (12-78); BILIRUBIN,DIRECT 0.1 MG/DL (0.0-0.2); BILIRUBIN,TOTAL 0.3 MG/DL (0.2-1.0); BLOOD UREA NITROGEN 14 MG/DL (7-18); CALCIUM LEVEL 9.2 MG/DL (8.5-10.1); CARBON DIOXIDE LEVEL 28 MEQ/L (21-32); CHLORIDE LEVEL 108 MEQ/L (98-107); CK-MB VALUE MASS 1.9 NG/ML (<3.6); CPK CREATINE PHOSPHOKINASE 76 U/L (26-192); CREATININE FOR GFR 0.78 MG/DL (0.55-1.30); GLOMERULAR FILTRATION RATE > 60.0 (>51); GLUCOSE, FASTING 102 MG/DL (70-100); POTASSIUM SERUM 3.5 MEQ/L (3.5-5.1); SODIUM LEVEL 142 MEQ/L (136-145)
[2020-03-06 13:35] LABS: ALBUMIN 3.7 GM/DL (3.2-5.2); ETHYL ALCOHOL (ETHANOL) < 0.003 % (0.000-0.010); FREE T4 0.97 NG/DL (0.76-1.46); LIPASE 272 U/L (73-393); THYROID STIMULATING HORMONE 0.904 uIU/ML (0.358-3.740); TOTAL PROTEIN 6.7 GM/DL (6.4-8.2); TROPONIN I < 0.02 NG/ML (< 0.10)
[2020-03-06] MEDS ORDERED: IBUPROFEN 600MG TAB PO ONE (14:30)
--- NOTE | 2020-03-06 14:50 | REPVR ---
PROCEDURE INFORMATION: Exam: CT Head Without Contrast Exam date and time: 03/06/2020 2:34 PM Age: 59 years old Clinical indication: Altered mental status/memory loss TECHNIQUE: Imaging protocol: Computed tomography of the head without contrast. Radiation optimization: All CT scans at this facility use at least one of these dose optimization techniques: automated exposure control; mA and/or kV adjustment per patient size (includes targeted exams where dose is matched to clinical indication); or iterative reconstruction. COMPARISON: CT Head without contrast 10/14/2015 9:29 AM FINDINGS: Brain: There is low attenuation abnormality in the periventricular white matter, likely reflecting chronic microvascular ischemic disease. There is moderate cerebral atrophy. Cerebral ventricles: No ventriculomegaly. Bones/joints: Unremarkable. No acute fracture. Paranasal sinuses: There is mild sinus disease. Mastoid air cells: Visualized mastoid air cells are well aerated. Soft tissues: Unremarkable. IMPRESSION: There is low attenuation abnormality in the periventricular white matter, likely reflecting chronic microvascular ischemic disease. If an acute infarct is clinically suspected, consider MRI with diffusion imaging. Electronically signed by: Andrez Eduardo On 03/06/2020 14:50:32 PM
--- NOTE | 2020-03-06 15:14 | REPVR ---
PROCEDURE INFORMATION: Exam: XR Chest, 2 Views Exam date and time: 03/06/2020 12:34 PM Age: 59 years old Clinical indication: Cough and shortness of breath TECHNIQUE: Imaging protocol: XR of the chest Views: 2 views. COMPARISON: CT ANGIO CHEST 09/14/2019 2:30 PM FINDINGS: Tubes, catheters and devices: There are several EKG leads overlying the chest. Surgical moi are identified overlying the left upper quadrant, please correlate with surgical history. Lungs: Unremarkable. No consolidation. Pleural space: Unremarkable. No pleural effusion. No pneumothorax. Heart/Mediastinum: Unremarkable. No cardiomegaly. Bones/joints: Unremarkable. IMPRESSION: No acute findings are identified. Electronically signed by: Andrez Eduardo On 03/06/2020 15:14:24 PM
[2020-03-06] MEDS: GASTROGRAFIN SOLUTION 30ML PO SCH ×2 (16:01→16:49)
[2020-03-06] MEDS ORDERED: ACETAMINOPHEN TAB 650MG DOSE (2X325MG) PO ONE (16:45)
[2020-03-06] MEDS ORDERED: ISOVUE-370 76% 100ML VIAL As Ordered ONE (16:59)
--- NOTE | 2020-03-06 18:09 | REPVR ---
PROCEDURE INFORMATION: Exam: CT Abdomen And Pelvis With Contrast Exam date and time: 03/06/2020 3:22 PM Age: 59 years old Clinical indication: Abdominal pain; Additional info: Left sided abd pain TECHNIQUE: Imaging protocol: Computed tomography of the abdomen and pelvis with intravenous contrast. Radiation optimization: All CT scans at this facility use at least one of these dose optimization techniques: automated exposure control; mA and/or kV adjustment per patient size (includes targeted exams where dose is matched to clinical indication); or iterative reconstruction. Contrast material: ISOVUE 370; Contrast volume: 100 ml; Contrast route: INTRAVENOUS (IV); COMPARISON: CT ABD/PEL W/IV CONTRAST ONLY 09/14/2019 2:30 PM FINDINGS: Liver: Normal. No mass. Gallbladder and bile ducts: Normal. No calcified stones. No ductal dilation. Pancreas: Normal. No ductal dilation. Spleen: Surgical clips are again seen in the left upper quadrant adjacent to the spleen unchanged since the previous CT exam. Adrenals: Normal. No mass. Kidneys and ureters: Comparison to the previous CT abdomen and pelvis exam shows a slight interval increase in size of a hypodense mass, likely a cyst, in the mid-upper pole left kidney now measuring 5.5 cm in AP diameter, whereas previously this measured 5.0 cm. The size of the presumptive cyst could be causing left-sided abdominal pain. This has a benign appearance with a smooth, well-defined thin wall and low internal CT attenuation and is likely a Bosniak type I simple cyst. A similar smaller probable cyst is seen in the mid-pole right kidney on image 45 of series 201. Stomach and bowel: Moderately severe distal colonic diverticulosis is present, with no evidence of acute diverticulitis. Appendix: No evidence of appendicitis. Intraperitoneal space: Unremarkable. No free air. No significant fluid collection. Vasculature: Unremarkable. No abdominal aortic aneurysm. Lymph nodes: Unremarkable. No enlarged lymph nodes. Urinary bladder: Unremarkable as visualized. Reproductive: Unremarkable as visualized. Bones/joints: Unremarkable. No acute fracture. Soft tissues: Unremarkable. IMPRESSION: 1. Comparison to the previous CT abdomen and pelvis exam shows a slight interval increase in size of a hypodense mass, likely a cyst, in the mid-upper pole left kidney now measuring 5.5 cm in AP diameter, whereas previously this measured 5.0 cm. The size of the presumptive cyst could be causing left-sided abdominal pain. This has a benign appearance with a smooth, well-defined thin wall and low internal CT attenuation and is likely a Bosniak type I simple cyst. A similar smaller probable cyst is seen in the mid-pole right kidney on image 45 of series 201. No further follow-up is recommended. Reference: Patricia REED, Management of the Incidental Renal Mass on CT: A White Paper of the ACR Incidental Findings Committee, J Am Wesley Radiol 2018. 2. Surgical clips are again seen in the left upper quadrant adjacent to the spleen unchanged since the previous CT exam. 3. Moderately severe distal colonic diverticulosis is present, with no evidence of acute diverticulitis. Electronically signed by: Zelalem Stock On 03/06/2020 18:08:48 PM
--- NOTE | 2020-03-06 19:39 | HPEPDOC ---
[facility] Medical History & Physical Date of Admission Mar 06, 2020 Date of Service: Mar 06, 2020 Primary Care Physician: Case Monet M.D. Attending Physician: JULIO CÉSAR LUI MD History and Physical TIME OF SERVICE: 9:45 PM CHIEF COMPLAINT: Lethargy HISTORY OF PRESENT ILLNESS: This 59-year-old female presented with multiple complaints including sleeping all day for the last 1-1/2 weeks, difficulties walking properly, heavy arms and legs, shortness of breath, headache, neck pain, cough, chills, nausea and episodes of confusion. The workup in the ER including blood work. CT of the head, chest x-ray respiratory panel and CT of the abdomen and pelvis were unrevealing. had initially planned to send the patient home, but noted that she had difficulties ambulating, therefore, he ordered MRI of the brain which is still pending. REVIEW OF SYSTEMS: 12 point review of systems negative except as listed in HPI PAST MEDICAL/ SURGICAL HISTORY: TIA 2 CVA GERD / PUD Hypothyroidism DJD / chronic back pain Dyslipidemia Nephrolithiasis requiring lithotripsy Grade 1 Diastolic Dysfunction / CHF JORDAN, noncompliant with CPAP Splenectomy SOCIAL HISTORY: She has a history of alcohol, cocaine, amphetamine and THC abuse FAMILY HISTORY: Hypothyroidism Hypertension Diabetes Crohn's disease ALLERGIES: Please see below. HOME MEDICATIONS: Please see below. PHYSICAL EXAMINATION: Vital Signs Date Time Temp Pulse Resp B/P (MAP) Pulse Ox O2 Delivery O2 Flow Rate FiO2 03/06/20 12:08 98.7 59 20 134/96 (109) 95 Room Air GEN: well-nourished / well developed/ anxious INTEGUMENT: not flushed/ not jaundice HEENT: mucus membranes moist and pink / sclera anicteric CVS: RRR/NMRG/ radial pulses intact / no lower extremity edema LUNGS: able to speak full sentences without stopping to take a breath / no coughing / lungs are clear to auscultation bilaterally on room air ABDOMEN: Contour (flat ) / there are no masses or lesions / bowel sounds are present / soft & not tender with palpation MSK/EXTREMITIES: NCAT / range of motion intact in all 4 extremities NEURO: CN 2-12 intact / no nystagmus / speech is not dysarthric / strength is 5/5 PSYCH: alert and oriented to person place and time/ able to understand and follow all commands LABORATORY DATA: 03/06/20 12:34 03/06/20 12:30: Urine Color YELLOW, Urine Appearance CLEAR, Urine pH 6.0, Urine Specific [place] 1.018, Urine Protein NEGATIVE, Urine Glucose (UA) NEGATIVE, Urine Ketones NEGATIVE, Urine Blood 1+H, Urine Nitrite NEGATIVE, Urine Bilirubin NEGATIVE, Urine Urobilinogen 0.2, Urine Leukocyte Esterase NEGATIVE, Urine WBC (Auto) 1, Urine RBC (Auto) 5H, Urine Hyaline Casts (Auto) 0, Urine Bacteria (Auto) NEGATIVE, Urine Squamous Epithelial Cells 0, Urine Mucus (Auto) SMALL, Urine Sperm (Auto) , Urine Opiates Screen NEGATIVE, Urine Methadone Screen NEGATIVE, Urine Barbiturates Screen NEGATIVE, Urine Phencyclidine Screen NEGATIVE, Urine Amphetamines Screen NEGATIVE, Urine Benzodiazepines Screen POSITIVEH, Urine Cocaine Metabolite Screen NEGATIVE, Urine Cannabinoids Screen NEGATIVE 03/06/20 12:34: Immature Granulocyte % (Auto) 0.2, Neutrophils (%) (Auto) 48.9, Lymphocytes (%) (Auto) 35.0, Monocytes (%) (Auto) 11.3H, Eosinophils (%) (Auto) 4.1H, Basophils (%) (Auto) 0.5, Neutrophils # (Auto) 5.0, Lymphocytes # (Auto) 3.6, Monocytes # (Auto) 1.2H, Eosinophils # (Auto) 0.4, Basophils # (Auto) 0.1, Nucleated Red Blood Cells % (auto) 0.0, Anion Gap 6L, Glomerular Filtration Rate > 60.0, Calcium Level 9.2, Total Bilirubin 0.3, Direct Bilirubin 0.1, Aspartate Amino Transf (AST/SGOT) 11, Alanine Aminotransferase (ALT/SGPT) 17, Alkaline Phosphatase 81, Total Creatine Kinase 76, Creatine Kinase MB 1.9, Creatine Kinase MB Relative Index 2.50, Troponin I < 0.02, Total Protein 6.7, Albumin 3.7, Albumin/Globulin Ratio 1.2, Lipase 272, Thyroid Stimulating Hormone (TSH) 0.904, Free Thyroxine 0.97, Ethyl Alcohol Level < 0.003 IMAGING: CT head "IMPRESSION: There is low attenuation abnormality in the periventricular white matter, likely reflecting chronic microvascular ischemic disease. If an acute infarct is clinically suspected, consider MRI with diffusion imaging." Chest x-ray "IMPRESSION: No acute findings are identified." CT abdomen and pelvis "IMPRESSION: 1. Comparison to the previous CT abdomen and pelvis exam shows a slight interval increase in size of a hypodense mass, likely a cyst, in the mid-upper pole left kidney now measuring 5.5 cm in AP diameter, whereas previously this measured 5.0 cm. The size of the presumptive cyst could be causing left-sided abdominal pain. This has a benign appearance with a smooth, well-defined thin wall and low internal CT attenuation and is likely a Bosniak type I simple cyst. A similar smaller probable cyst is seen in the mid- pole right kidney on image 45 of series 201. No further follow-up is recommended. Reference: Patricia BR, Management of the Incidental Renal Mass on CT: A White Paper of the ACR Incidental Findings Committee, J Am Wesley Radiol 2018. 2. Surgical clips are again seen in the left upper quadrant adjacent to the spleen unchanged since the previous CT exam. 3. Moderately severe distal colonic diverticulosis is present, with no evidence of acute diverticulitis." MRI brain "IMPRESSION: Mild cerebral volume loss. No acute intracranial abnormality." MRA brain "IMPRESSION: No stenosis or occlusion." MICROBIOLOGY: 03/06/20 Respiratory Virus Panel (PCR) (JOSE) - Final, Complete ASSESSMENT: is a 59-year-old with a history of TIAs, CVAs, GERD, hypothyroidism, dyslipidemia, diastolic CHF, and hx of polysubstance abuse who presented w c/o lethargy, difficulties walking , heavy limbs, dyspnea, DUBON, neck pain, cough, chills, nausea and confusion; her work-up was unremarkable except for rosalia cardia. She will be admitted for observation under telemetry overnight. PLAN: 1. Transient encephalopathy / Lethargy - resolved Possibly due to her medications and or untreated JORDAN CT, MRI, MRA head, ammonia and VBG unrevealing Plan: admit to [facility]ST/ neurochecks / hold Flexeril, decreased diazepam from 10mg to 5mg QHS, hold trazodone / will ask day time team to refer patient back to her PCP for repeat sleep study (sleep study in [facility] was done in 2010) and to discuss the importance of compliance w CPAP 2. Bradycardia Not sure if her lethargy is due to symptomatic bradycardia Plan: telemetry / decrease Coreg from 12.5mg BID to 6.125mg BID 3. Weakness & unsteady gait Possibly due to bradycardia or statin TSH wnl Plan: fall precautions / decrease dose of Coreg and hold statin / PT eval in the morning 4. Abdominal pain possibly due to renal cyst Plan: acetaminophen PRN 5. Polysubstance Abuse UDS + Benzos Plan: fall and seizure precautions / MVI, thiamine and folic acid / she is alrea dy taking diazepam 6. Obesity BMI 32.8 complicates care She has co-existing JORDAN but is not compliant w CPAP Plan: f/u A1C and with PCP to discuss diet and exercise recommendations DVT PROPHYLAXIS: Lovenox DISPOSITION: home likely tomorrow Home Medications Scheduled Carvedilol (Carvedilol) 12.5 Mg Tab, 12.5 MG PO BID Chlorthalidone (Chlorthalidone) 25 Mg Tablet, 12.5 MG PO DAILY Cholecalciferol (Vitamin D3) (Vitamin D3) 1,000 Unit Tablet, 2,000 UNITS PO DAILY Clopidogrel Bisulfate (Clopidogrel) 75 Mg Tablet, 75 MG PO DAILY Diazepam (Diazepam) 10 Mg Tab, 10 MG PO QHS Fluoxetine Hcl (Fluoxetine HCl) 10 Mg Capsule, 30 MG PO DAILY Folic Acid (Folic Acid) 1 Mg Tab, 1 MG PO BID Levothyroxine Sodium (Levothyroxine Sodium) 25 Mcg Tab, 25 MCG PO DAILY Pantoprazole Sodium (Pantoprazole Sodium) 40 Mg Tablet.dr, 40 MG PO BID Rosuvastatin Calcium (Crestor) 40 Mg Tab, 20 MG PO DAILY Trazodone HCl (Trazodone HCl) 100 Mg Tablet, 100 MG PO QHS Scheduled PRN Cyclobenzaprine HCl (Cyclobenzaprine HCl) 10 Mg Tab, 10 MG PO Q8HP PRN for PAIN Ondansetron (Ondansetron Odt) 4 Mg Tab.rapdis, 4 MG PO Q6H PRN for NAUSEA OR VOMITING Allergies Coded Allergies: Sulfa (Sulfonamide Antibiotics) (Verified Allergy, Severe, RESP ARREST, 08/16/18) pentazocine (Verified Adverse Reaction, Intermediate, RASH, 08/16/18) A-FIB/CHADSVASC A-FIB History Current/History of A-Fib/PAF?: No Current PO Anticoag Therapy: No JULIO CÉSAR LUI MD Mar 06, 2020 19:39
[2020-03-06] MEDS ORDERED: MAALOX 30 ML SUSP *UDC PO PRN (19:45)
[2020-03-06] MEDS ORDERED: MOM 30ML SUSPENSION UDC PO PRN (19:45)
[2020-03-06] MEDS ORDERED: TRAZ-257 PO (19:50)
[2020-03-06] MEDS ORDERED: PANT40TA29 PO (19:50)
[2020-03-06] MEDS ORDERED: CHLO125TA PO (19:50)
[2020-03-06] MEDS ORDERED: D31000TA2 PO (19:50)
[2020-03-06] MEDS ORDERED: CLOP75TA2 PO (19:54)
[2020-03-06] MEDS ORDERED: ONDA4TAB6 PO (19:55)
[2020-03-06] MEDS ORDERED: ONDANSETRON 4 MG ORAL DISINTEGRATING TAB PO PRN (20:15)
[2020-03-06] MEDS: FOLIC ACID 1 MG TAB PO SCH (21:00)
[2020-03-06] MEDS ORDERED: diazePAM 5 MG TAB PO SCH (21:00)
[2020-03-06] MEDS: PANTOPRAZOLE 40MG TAB (PROTONIX) PO SCH (21:00)
[2020-03-06] MEDS ORDERED: CARVedilol 12.5 MG TAB PO SCH (21:00)
--- NOTE | 2020-03-06 21:08 | REPVR ---
PROCEDURE INFORMATION: Exam: MR Angiogram Head Without Contrast, Arteries Exam date and time: 03/06/2020 8:34 PM Age: 59 years old Clinical indication: Speech disturbance; Slurred speech TECHNIQUE: Imaging protocol: MR angiogram head without contrast. Exam focused on the arteries. COMPARISON: MRA BRAIN W/O CONTRAST 10/13/2015 7:10 PM FINDINGS: ANTERIOR CIRCULATION: Right internal carotid artery: Intracranial segment is patent with no significant stenosis. No aneurysm. Right middle cerebral artery: No occlusion or significant stenosis. No aneurysm. Right anterior cerebral artery: No occlusion or significant stenosis. No aneurysm. Left internal carotid artery: Intracranial segment is patent with no significant stenosis. No aneurysm. Left middle cerebral artery: No occlusion or significant stenosis. No aneurysm. Left anterior cerebral artery: No occlusion or significant stenosis. No aneurysm. POSTERIOR CIRCULATION: Right vertebral artery: No occlusion or significant stenosis. No aneurysm. Left vertebral artery: No occlusion or significant stenosis. No aneurysm. Basilar artery: No occlusion or significant stenosis. No aneurysm. Right posterior cerebral artery: No occlusion or significant stenosis. No aneurysm. Left posterior cerebral artery: No occlusion or significant stenosis. No aneurysm. IMPRESSION: No stenosis or occlusion. Electronically signed by: Eliseo Joy On 03/06/2020 21:08:54 PM
--- NOTE | 2020-03-06 21:12 | REPVR ---
PROCEDURE INFORMATION: Exam: MR Head Without Contrast Exam date and time: 03/06/2020 8:34 PM Age: 59 years old Clinical indication: Speech disturbance; Slurred speech TECHNIQUE: Imaging protocol: MR of the head without contrast. COMPARISON: CT Head without contrast 03/06/2020 2:28 PM FINDINGS: Brain: There is mild cerebral volume loss. No signs of a recent infarction or hemorrhage. No mass or midline shift. Cerebral ventricles: Normal. No ventriculomegaly. Bones/joints: Unremarkable. Paranasal sinuses: Normal as visualized. No acute sinusitis. Mastoid air cells: Normal as visualized. No mastoid effusion. Orbits: Unremarkable. Soft tissues: Unremarkable. IMPRESSION: Mild cerebral volume loss. No acute intracranial abnormality. Electronically signed by: Eliseo Joy On 03/06/2020 21:12:08 PM
[2020-03-06 21:37] LABS: VENOUS BASE EXCESS 2.7 (-2.0-2.0); VENOUS O2 SATURATION 99.1 % (60.0-80.0); VENOUS PARTIAL PRESSURE CO2 40.6 mmHg (38.0-50.0); VENOUS PH 7.441 UNITS (7.330-7.430); VENOUS STANDARD HCO3 26.9 MEQ/L; VENOUS TOTAL CO2 28.3 MEQ/L (24.0-28.0)
[2020-03-06 22:01] VITALS: BP 148/98
[2020-03-06 23:48] VITALS: BP 128/98
[2020-03-07] MEDS ORDERED: KETOROLAC 30 MG/ML 1ML VIAL IV ONE (00:45)
[2020-03-07] MEDS ORDERED: METOCLOPRAMIDE INJ 10MG/2ML VIAL (J2765 PER 1) IV ONE ×2 (00:45→09:30)
[2020-03-07] MEDS ORDERED: DICLOFENAC EPOLAMINE 1.3 % PATCH TOP PRN (01:00)
[2020-03-07 04:00] VITALS: BP 117/69
[2020-03-07 05:27] LABS: HEMATOCRIT 45.7 % (36.0-47.0); HEMOGLOBIN 15.5 g/dl (12.0-15.5); MEAN CORPUSCULAR HEMOGLOBIN 32.1 pg (27.0-33.0); MEAN CORPUSCULAR HGB CONC 33.9 g/dl (32.0-36.5); MEAN CORPUSCULAR VOLUME 94.6 fl (80.0-96.0); PLATELET COUNT, AUTOMATED 231 10^3/uL (150-450); RED BLOOD COUNT 4.83 10^6/uL (4.00-5.40); WHITE BLOOD COUNT 7.4 10^3/uL (4.0-10.0)
[2020-03-07] MEDS: ACETAMINOPHEN TAB 650MG DOSE (2X325MG) PO PRN ×2 (05:38→14:01)
[2020-03-07 05:49] LABS: BLOOD UREA NITROGEN 11 MG/DL (7-18); CALCIUM LEVEL 8.8 MG/DL (8.5-10.1); CARBON DIOXIDE LEVEL 28 MEQ/L (21-32); CHLORIDE LEVEL 107 MEQ/L (98-107); GLOMERULAR FILTRATION RATE > 60.0 (>51); GLUCOSE, FASTING 95 MG/DL (70-100); POTASSIUM SERUM 3.3 MEQ/L (3.5-5.1); SODIUM LEVEL 140 MEQ/L (136-145)
[2020-03-07 05:50] LABS: HEMOGLOBIN A1c 5.9 %
[2020-03-07] MEDS ORDERED: LEVOTHYROXINE 25MCG TABLET (0.025MG) PO SCH (06:00)
[2020-03-07 08:00] VITALS: BP 131/85
[2020-03-07] MEDS ORDERED: MULTIVITAMINS/MINERALS THERAP 1 TAB PO SCH (09:00)
[2020-03-07] MEDS ORDERED: CARVedilol 12.5 MG TAB PO SCH (09:00)
[2020-03-07] MEDS ORDERED: CLOPIDOGREL 75 MG TAB PO SCH (09:00)
[2020-03-07] MEDS: ENOXAPARIN 40MG/0.4ML SYRINGE (J1650 PER 10MG) SC SCH ×2 (09:00→09:42)
[2020-03-07] MEDS ORDERED: THIAMINE 100 MG TAB PO SCH (09:00)
[2020-03-07] MEDS ORDERED: CHLORTHALIDONE 12.5MG PER 1/2 TABLET PO SCH (09:00)
[2020-03-07] MEDS ORDERED: VITAMIN D 1,000 INTERNATIONAL UNITS TABLET PO SCH (09:00)
[2020-03-07] MEDS ORDERED: IBUPROFEN 800 MG TAB PO ONE (09:15)
[2020-03-07] MEDS ORDERED: ACETAMINOPHEN 500 MG TAB PO ONE (09:15)
[2020-03-07] MEDS: FOLIC ACID 1 MG TAB PO SCH (09:40)
[2020-03-07] MEDS: PANTOPRAZOLE 40MG TAB (PROTONIX) PO SCH (09:41)
[2020-03-07] MEDS ORDERED: DIAZ10TA2 PO ×2 (10:35→10:39)
[2020-03-07] MEDS ORDERED: CARV12.5 PO ×2 (10:35→10:39)
[2020-03-07] MEDS ORDERED: TRAZ-257 PO ×2 (10:35→10:39)
[2020-03-07 12:00] VITALS: BP 138/84
--- NOTE | 2020-03-07 20:18 | ECGEPIP ---
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
--- NOTE | 2020-03-09 12:19 | DS.PDOC ---
Discharge Summary General Date of Admission Mar 06, 2020 at 12:06 Date of Discharge 03/07/20 Discharge Summary PROCEDURES PERFORMED DURING STAY: [None]. DISCHARGE DIAGNOSES: Acute metabolic encephalopathy due to medications. Sinus bradycardia. SECONDARY DIAGNOSIS: H/o TIA CVA GERD / PUD/ Gastric Ulcer/ Hiatal hernia Hypothyroidism Hypertension Dyslipidemia JORDAN, noncompliant with CPAP Thoracic, cervical , lumber DJD / chronic back pain on Buprenorphine patch. Bilateral Nephrolithiasis s/p right laser lithotripsy Grade 1 Diastolic Dysfunction / CHF Splenectomy MDD/NGUYỄN/PTSD/Insomnia Migraine HERPES GINGIVOSTOMATITIS, RECURRENT CONGENTIAL R FOOT EQUINOVARUS H/O Alcohol abuse and repetitive head trauma from age 10 to 45 years. H/O THC abuse from age 13 to 35 years Allergic Rhinitis. Obesity COMPLICATIONS/CHIEF COMPLAINT: Encephalopathy. HOSPITAL COURSE: This 59-year-old female presented with multiple complaints including sleeping all day for the last 1-1/2 weeks, difficulties walking properly, heavy arms and legs, shortness of breath, headache, neck pain, cough, chills, nausea and episodes of confusion. The workup in the ER including blood work. CT of the head, chest x-ray respiratory panel and CT of the abdomen and pelvis were unrevealing. had initially planned to send the patient home, but noted that she had difficulties ambulating so MRI brain and MRA were ordered and patient was admitted. MRI and MRA of brain was negative for any acute events. Patient has been taken of Percocet which she was taking for many years and started on Buprenorphine patch about 2 months ago. I was felt that her somnolence / metabolic encephalopathy was related to buprenorphine patch and her multiple psychiatric medications. All her sedating medications were held. Her Trazodone and diazepam dosage were reduced to half. She was also noted to have sinus bradycardia so her coreg dosage was reduced. She did well with holding the doses overnight and in alyson morning was more awake alert and felt back to baseline. She was discharged home in a stable condition. DISCHARGE MEDICATIONS: Please see below. ALLERGIES: Please see below. PHYSICAL EXAMINATION ON DISCHARGE: VITAL SIGNS: Please see below. GEN: well-nourished / well developed/ anxious INTEGUMENT: not flushed/ not jaundice HEENT: mucus membranes moist and pink / sclera anicteric CVS: RRR/NMRG/ radial pulses intact / no lower extremity edema LUNGS: lungs are clear to auscultation bilaterally on room air ABDOMEN: Contour (flat ) / there are no masses or lesions / bowel sounds are pr esent / soft & not tender with palpation MSK/EXTREMITIES: NCAT / range of motion intact in all 4 extremities NEURO: CN 2-12 intact / no nystagmus / speech is not dysarthric / strength is 5/5 PSYCH: alert and oriented to person place and time LABORATORY DATA: Please see below. ACTIVITY: [As tolerated]. DIET: As tolerated DISPOSITION: 01 Home, Self-Care. DISCHARGE INSTRUCTIONS: PMD in 1 week DISCHARGE CONDITION: [Stable]. TIME SPENT ON DISCHARGE: 35 minutes. Vital Signs/I&Os Vital Signs Date Time Temp Pulse Resp B/P (MAP) Pulse Ox O2 Delivery O2 Flow Rate FiO2 03/07/20 12:00 98.3 97 18 138/84 (102) 97 Room Air Microbiology Microbiology 03/06/20 Respiratory Virus Panel (PCR) (JOSE) - Final, Complete Discharge Medications Scheduled Carvedilol (Carvedilol) 12.5 Mg Tab, 0.5 TAB PO BID Chlorthalidone (Chlorthalidone) 25 Mg Tablet, 12.5 MG PO DAILY, (Reported) Cholecalciferol (Vitamin D3) (Vitamin D3) 1,000 Unit Tablet, 2,000 UNITS PO DAILY, (Reported) Clopidogrel Bisulfate (Clopidogrel) 75 Mg Tablet, 75 MG PO DAILY, (Reported) Diazepam (Diazepam) 10 Mg Tab, 0.5 TAB PO QHS Fluoxetine Hcl (Fluoxetine HCl) 10 Mg Capsule, 30 MG PO DAILY, (Reported) Folic Acid (Folic Acid) 1 Mg Tab, 1 MG PO BID, (Reported) Levothyroxine Sodium (Levothyroxine Sodium) 25 Mcg Tab, 25 MCG PO DAILY, (Reported) Pantoprazole Sodium (Pantoprazole Sodium) 40 Mg Tablet.dr, 40 MG PO BID, (Reported) Rosuvastatin Calcium (Crestor) 40 Mg Tab, 20 MG PO DAILY, (Reported) Trazodone HCl (Trazodone HCl) 100 Mg Tablet, 0.5 TAB PO QHS Scheduled PRN Cyclobenzaprine HCl (Cyclobenzaprine HCl) 10 Mg Tab, 10 MG PO Q8HP PRN for PAIN, (Reported) Ondansetron (Ondansetron Odt) 4 Mg Tab.rapdis, 4 MG PO Q6H PRN for NAUSEA OR VOMITING, (Reported) Allergies Coded Allergies: Sulfa (Sulfonamide Antibiotics) (Verified Allergy, Severe, RESP ARREST, 08/16/18) pentazocine (Verified Adverse Reaction, Intermediate, RASH, 08/16/18) WALDEMAR FAULKNER MD Mar 09, 2020 12:19
== END 2020-03-07 14:22 | disposition home or self-care (01) ==
LOC: M ED 12:05 → M ED INP 12:06 → ENRESERV 22:54 → M PCU 23:46
PROVIDERS: ADMIT Internal Medicine; ATTEND Internal Medicine
DX: G92 Toxic encephalopathy (principal); R00.1 Bradycardia, unspecified; R29.818 Other symptoms and signs involving the nervous system; F19.10 Other psychoactive substance abuse, uncomplicated; Z86.73 Personal history of transient ischemic attack (TIA), and cerebral infarction without residual deficits; K44.9 Diaphragmatic hernia without obstruction or gangrene; K21.9 Gastro-esophageal reflux disease without esophagitis; E03.9 Hypothyroidism, unspecified; I11.9 Hypertensive heart disease without heart failure; E78.5 Hyperlipidemia, unspecified; G47.33 Obstructive sleep apnea (adult) (pediatric); I50.9 Heart failure, unspecified; G43.909 Migraine, unspecified, not intractable, without status migrainosus; F43.10 Post-traumatic stress disorder, unspecified; F32.9 Major depressive disorder, single episode, unspecified; F41.9 Anxiety disorder, unspecified; G47.00 Insomnia, unspecified; E66.9 Obesity, unspecified; Z79.899 Other long term (current) drug therapy; Z88.0 Allergy status to penicillin; Z88.8 Allergy status to other drugs, medicaments and biological substances
CPT/HCPCS: 36415; 70450; 70544; 70551; 71046; 74177; 80048; 80076; 80307; 81001; 82140; 82550; 82553; 82803; 83036; 83690; 84439; 84443; 84484; 85025; 85027; 87486; 87581; 87633; 87798; 93005; 93041; 96374; 96375; 96376; 97161; 99285; G0378; G0480; J1885; J2765; Q9963; Q9967

== ENCOUNTER → 2020-03-18 | Outpatient (REF) | payer MEDICARE ==
[~2020-03-18] MED LIST changes: +BUPR5DIS3; +CHLO125TA PO; +D31000TA2 PO; +ONDA4TAB6 PO
[2020-03-18 14:38] LABS: C REACTIVE PROTEIN QUANTITATIV < 0.30 MG/DL (0.00-0.30); NT-PRO BNP 112 PG/ML (<125)
== END ==
LOC: M SFHCPLAZ 10:46
PROVIDERS: ATTEND Family Medicine
DX: R53.83 Other fatigue (principal); Z79.899 Other long term (current) drug therapy
CPT/HCPCS: 36415; 83880; 84600; 85652; 86140; G0480

== ENCOUNTER → 2020-03-24 | Outpatient (CLI) | payer MEDICARE ==
--- NOTE | 2020-03-31 11:28 | SLEEPHOME ---
DATE: 03/24/2020 ORDERED BY: Dr. Monet Diagnostic home sleep testing was performed due to concern for the obstructive sleep apnea syndrome. For testing, a nocturnal T3 respiratory monitoring device was used. Continuous record was made of pulse, oxygen saturation, air flow, chest and abdominal strain, and body position. There was 9 hours and 59 minutes of data reviewed. There was 7 hours and 36 minutes marked as time in bed. During the interval marked time in bed, there were 337 respiratory events identified of 10 seconds in duration or greater for a respiratory event index of 44.3. The events were primarily obstructive. Baseline pulse rate 69. Pulse rate ranged 59-87. Baseline saturation 91%. Saturations fell to 80%. Testing was performed in both the supine and nonsupine positions. IMPRESSION: Abnormal home sleep testing with repetitive respiratory events and oxygen desaturations to 80% with a respiratory event index of 44.3 is consistent with the obstructive sleep apnea syndrome. RECOMMENDATION: The patient should be encouraged to undergo formal sleep evaluation. [facility]
== END ==
LOC: M SLEEP HO 13:53
PROVIDERS: ATTEND Family Medicine
DX: G47.30 Sleep apnea, unspecified (principal)

== ENCOUNTER 2020-04-09 12:01 | Emergency (ER) | payer MEDICARE ==
[~2020-04-09] VITALS: Ht 172.7 cm; Wt 94.7 kg
--- NOTE | 2020-04-09 12:57 | REP ---
INDICATION: CHEST PAIN COMPARISON: 03/06/2020 TECHNIQUE: Portable AP view of the chest FINDINGS: Cardiomegaly and diffuse chronic changes are again suggested. Superimposed lower lobe infiltrates are suspected (left greater than right) and correlation with auscultation is recommended. IMPRESSION: Subtle superimposed lower lobe infiltrates cannot be excluded. <Electronically signed by Pedro Langley > 04/09/20 [id number]
[2020-04-09 12:59] LABS: BASO # 0.1 10^3/uL (0.0-0.2); BASO % 0.6 % (0.0-1.0); EOS # 0.4 10^3/uL (0.0-0.5); EOS % 4.5 % (0.0-3.0); HEMATOCRIT 45.1 % (36.0-47.0); HEMOGLOBIN 14.5 g/dl (12.0-15.5); LYMPH # 3.2 10^3/uL (1.5-5.0); LYMPH % 40.1 % (24.0-44.0); MEAN CORPUSCULAR HEMOGLOBIN 30.9 pg (27.0-33.0); MEAN CORPUSCULAR HGB CONC 32.2 g/dl (32.0-36.5); MEAN CORPUSCULAR VOLUME 96.2 fl (80.0-96.0); MONO % 12.2 % (0.0-5.0); NEUTROPHILS # 3.4 10^3/uL (1.5-8.5); NEUTROPHILS % 42.5 % (36.0-66.0); PLATELET COUNT, AUTOMATED 223 10^3/uL (150-450); RED BLOOD COUNT 4.69 10^6/uL (4.00-5.40)
[2020-04-09 13:13] LABS: INR 0.95; PROTHROMBIN TIME 12.9 SECONDS (12.5-14.3)
[2020-04-09 13:24] LABS: ALBUMIN 3.4 GM/DL (3.2-5.2); ALT/SGPT 21 U/L (12-78); BILIRUBIN,DIRECT 0.1 MG/DL (0.0-0.2); BILIRUBIN,TOTAL 0.3 MG/DL (0.2-1.0); CPK CREATINE PHOSPHOKINASE 75 U/L (26-192); LIPASE 201 U/L (73-393); TOTAL PROTEIN 6.3 GM/DL (6.4-8.2); TROPONIN I < 0.02 NG/ML (< 0.10)
[2020-04-09] MEDS ORDERED: DIAZ10TA2 PO (13:24)
[2020-04-09] MEDS ORDERED: TRAZ-189 PO (13:24)
[2020-04-09] MEDS ORDERED: CARV12.5 PO (13:24)
[2020-04-09] MEDS ORDERED: LEVOTAB10 PO (13:24)
[2020-04-09] MEDS ORDERED: MONT5TAB2 PO (13:24)
[2020-04-09] MEDS ORDERED: ACETAMINOPHEN TAB 650MG DOSE (2X325MG) PO ONE (14:00)
--- NOTE | 2020-04-09 14:15 | REP ---
INDICATION: ?infiltrates on CXR COMPARISON: 09/14/2019 TECHNIQUE: Axial noncontrast images from the thoracic inlet to the upper abdomen with coronal and sagittal reformations. This CT examination was performed using the following dose reduction techniques: Automated exposure control, adjustment of mA and/or kv according to the patient's size, and use of iterative reconstruction technique. FINDINGS: Lung melo demonstrate chronic changes primarily involving the lung bases. Subtle superimposed right posterior basilar atelectasis/dependent changes noted. No significant consolidation. No effusion. No pneumothorax. Tracheobronchial tree is patent. No obvious adenopathy. Mediastinum demonstrates minimal atherosclerotic changes to the thoracic aorta and coronary arteries without aortic aneurysm or cardiomegaly. No pericardial effusion. Musculoskeletal structures are intact. Limited upper abdomen demonstrates stable left renal cyst and surgical clips in the left upper abdomen. IMPRESSION: Very minimal posterior basilar dependent/atelectatic changes. No consolidation or effusion. <Electronically signed by Pedro Langley > 04/09/20 [id number]
[2020-04-09 14:20] LABS: BLOOD UREA NITROGEN 12 MG/DL (7-18); CALCIUM LEVEL 8.9 MG/DL (8.5-10.1); CARBON DIOXIDE LEVEL 27 MEQ/L (21-32); CHLORIDE LEVEL 110 MEQ/L (98-107); CREATININE FOR GFR 0.84 MG/DL (0.55-1.30); GLOMERULAR FILTRATION RATE > 60.0 (>51); GLUCOSE, FASTING 100 MG/DL (70-100); POTASSIUM SERUM 3.7 MEQ/L (3.5-5.1); SODIUM LEVEL 144 MEQ/L (136-145)
[2020-04-09] MEDS ORDERED: DOXY100C37 PO (14:28)
[2020-04-09 15:00] VITALS: BP 140/85
--- NOTE | 2020-04-10 07:31 | ECGEPIP ---
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
== END 2020-04-09 15:21 | disposition home or self-care (01) ==
LOC: M ED 12:01
DX: J20.9 Acute bronchitis, unspecified (principal); I50.9 Heart failure, unspecified; I11.0 Hypertensive heart disease with heart failure; E07.9 Disorder of thyroid, unspecified; G47.33 Obstructive sleep apnea (adult) (pediatric); E78.5 Hyperlipidemia, unspecified; F10.10 Alcohol abuse, uncomplicated; Z79.891 Long term (current) use of opiate analgesic; F17.210 Nicotine dependence, cigarettes, uncomplicated

== ENCOUNTER → 2020-04-17 | Outpatient (CLI) | payer MEDICARE ==
[~2020-04-17] MED LIST changes: +DOXY100C37 PO; +LEVOTAB10 PO; +MONT5TAB2 PO; +TRAZ-189 PO
[2020-04-17 13:49] LABS: BASO # 0.1 10^3/uL (0.0-0.2); BASO % 0.7 % (0.0-1.0); EOS # 0.4 10^3/uL (0.0-0.5); EOS % 4.6 % (0.0-3.0); HEMATOCRIT 46.3 % (36.0-47.0); HEMOGLOBIN 14.9 g/dl (12.0-15.5); LYMPH # 3.1 10^3/uL (1.5-5.0); LYMPH % 40.2 % (24.0-44.0); MEAN CORPUSCULAR HEMOGLOBIN 31.2 pg (27.0-33.0); MEAN CORPUSCULAR HGB CONC 32.2 g/dl (32.0-36.5); MEAN CORPUSCULAR VOLUME 97.1 fl (80.0-96.0); MONO # 0.9 10^3/uL (0.0-0.8); MONO % 11.6 % (0.0-5.0); NEUTROPHILS # 3.3 10^3/uL (1.5-8.5); NEUTROPHILS % 42.6 % (36.0-66.0); PLATELET COUNT, AUTOMATED 255 10^3/uL (150-450); RED BLOOD COUNT 4.77 10^6/uL (4.00-5.40); WHITE BLOOD COUNT 7.6 10^3/uL (4.0-10.0)
--- NOTE | 2020-04-17 14:07 | REP ---
INDICATION: SOB. COMPARISON: April 09, 2020. TECHNIQUE: Two views.. FINDINGS: The lungs are somewhat hyperinflated but free of infiltrate. Pleural angles are sharp. Heart is not enlarged. Aorta is somewhat tortuous. There are surgical clips in the left upper quadrant of the abdomen. Mild degenerative changes are seen in the thoracic spine. IMPRESSION: Hyperinflation, otherwise no acute disease.. <Electronically signed by Moreno Mullins > 04/17/20 [id number]
[2020-04-17 15:39] LABS: BLOOD UREA NITROGEN 11 MG/DL (7-18); CALCIUM LEVEL 9.7 MG/DL (8.5-10.1); CARBON DIOXIDE LEVEL 27 MEQ/L (21-32); CHLORIDE LEVEL 108 MEQ/L (98-107); CREATININE FOR GFR 0.85 MG/DL (0.55-1.30); GLOMERULAR FILTRATION RATE > 60.0 (>51); GLUCOSE, FASTING 85 MG/DL (70-100); POTASSIUM SERUM 3.9 MEQ/L (3.5-5.1); SODIUM LEVEL 141 MEQ/L (136-145)
[2020-04-17 15:40] LABS: ALBUMIN 3.7 GM/DL (3.2-5.2); ALT/SGPT 17 U/L (12-78); BILIRUBIN,TOTAL 0.4 MG/DL (0.2-1.0); TOTAL PROTEIN 6.7 GM/DL (6.4-8.2)
== END ==
LOC: M ADAMS 11:16
PROVIDERS: ATTEND Physician Assistant
DX: R06.02 Shortness of breath (principal); J02.9 Acute pharyngitis, unspecified

== ENCOUNTER 2020-05-01 13:20 | Emergency (ER) | payer MEDICARE ==
[~2020-05-01] VITALS: Ht 172.7 cm; Wt 94.2 kg
[2020-05-01] MEDS ORDERED: AMLO2.5T3 (13:39)
[2020-05-01] MEDS ORDERED: ALBUTEROL 90 MCG/ACT 8GM HFA INHALER INH ONE (14:15)
[2020-05-01] MEDS ORDERED: METOCLOPRAMIDE INJ 10MG/2ML VIAL (J2765 PER 1) IV ONE (14:15)
[2020-05-01] MEDS ORDERED: dexameTHASONE 20MG/5ML VIAL (J1100 PER 1MG) IV ONE (14:15)
[2020-05-01 14:46] LABS: BASO % 0.5 % (0.0-1.0); EOS # 0.3 10^3/uL (0.0-0.5); EOS % 3.5 % (0.0-3.0); HEMATOCRIT 48.2 % (36.0-47.0); HEMOGLOBIN 15.6 g/dl (12.0-15.5); LYMPH # 3.3 10^3/uL (1.5-5.0); LYMPH % 40.4 % (24.0-44.0); MEAN CORPUSCULAR HEMOGLOBIN 31.5 pg (27.0-33.0); MEAN CORPUSCULAR HGB CONC 32.4 g/dl (32.0-36.5); MEAN CORPUSCULAR VOLUME 97.4 fl (80.0-96.0); MONO # 1.1 10^3/uL (0.0-0.8); MONO % 13.4 % (0.0-5.0); NEUTROPHILS # 3.4 10^3/uL (1.5-8.5); PLATELET COUNT, AUTOMATED 236 10^3/uL (150-450); RED BLOOD COUNT 4.95 10^6/uL (4.00-5.40); WHITE BLOOD COUNT 8.1 10^3/uL (4.0-10.0)
[2020-05-01 15:02] LABS: INR 1.02; PROTHROMBIN TIME 13.6 SECONDS (12.5-14.3)
[2020-05-01 15:16] LABS: ALBUMIN 3.7 GM/DL (3.2-5.2); ALT/SGPT 22 U/L (12-78); BILIRUBIN,DIRECT 0.1 MG/DL (0.0-0.2); BILIRUBIN,TOTAL 0.4 MG/DL (0.2-1.0); BLOOD UREA NITROGEN 13 MG/DL (7-18); CARBON DIOXIDE LEVEL 26 MEQ/L (21-32); CHLORIDE LEVEL 109 MEQ/L (98-107); CK-MB VALUE MASS 3.4 NG/ML (<3.6); CPK CREATINE PHOSPHOKINASE 91 U/L (26-192); CREATININE FOR GFR 0.83 MG/DL (0.55-1.30); GLOMERULAR FILTRATION RATE > 60.0 (>51); GLUCOSE, FASTING 116 MG/DL (70-100); MB/CK RELATIVE INDEX 3.74 (< OR =4); NT-PRO BNP 162 PG/ML (<125); POTASSIUM SERUM 3.9 MEQ/L (3.5-5.1); SODIUM LEVEL 142 MEQ/L (136-145); THYROXINE (T4) 8.4 UG/DL (4.5-12.0); TOTAL PROTEIN 6.6 GM/DL (6.4-8.2); TROPONIN I < 0.02 NG/ML (< 0.10)
[2020-05-01 15:22] LABS: RSV AMPLIFICATION NEGATIVE (NEGATIVE)
[2020-05-01] MEDS ORDERED: ISOVUE-370 76% 100ML VIAL As Ordered ONE (15:44)
--- NOTE | 2020-05-01 15:44 | REP ---
INDICATION: DYSPNEA/COUGH. COMPARISON: Comparison chest x-ray April 17, 2020. TECHNIQUE: Portable upright AP chest radiograph. FINDINGS: There is mild bibasilar linear fibrosis. Heart size is borderline unchanged. The aorta is tortuous. No acute bony abnormality is seen. Pulmonary vasculature is not increased. Monitoring electrodes are noted.. IMPRESSION: Mild bibasilar fibrosis. Otherwise no acute disease.. <Electronically signed by Moreno Mullins > 05/01/20 [id number]
[2020-05-01] MEDS ORDERED: NS 1,000 ML IV ONE (16:15)
[2020-05-01] MEDS ORDERED: ACETAMINOPHEN 500 MG TAB PO ONE (16:15)
[2020-05-01] MEDS ORDERED: KETOROLAC 30 MG/ML 1ML VIAL IV ONE (16:15)
[2020-05-01] MEDS ORDERED: diphenhydrAMINE 50MG/ML VIAL (J1200) IV ONE (16:15)
--- NOTE | 2020-05-01 16:18 | REP ---
INDICATION: hemoptysis. COMPARISON: Comparison study September 14, 2019.. TECHNIQUE: Contrast dose: ML of Isovue [address] technique: Helical scanning is acquired and overlapping 1.5 mm and contiguous 3 mm axial images are reformatted. In addition, maximum intensity projection and multiplanar re-formation images are generated in sagittal and coronal imaging projections. FINDINGS: Preliminary digital telecom engineer radiograph demonstrates surgical clips in the left upper quadrant. Patient is status post prior splenectomy. Axial images however demonstrate residual or recurrence splenic tissue in the left upper quadrant adjacent to the clips. There is also a cyst in the upper pole left kidney. These findings are unchanged. There is good opacification of the pulmonary arterial tree. There is no filling defect or vessel cutoff to suggest pulmonary embolus. The thoracic aorta enhances homogeneously. No aneurysm. No CT evidence of dissection. There are subsegmental atelectatic changes in the right lower lobe posteriorly and in the right middle lobe. This is improved in the middle lobe and essentially unchanged in the right lower lobe from the September 14, 2019 study. No new infiltrate is appreciated. There is no evidence of pleural or pericardial effusion. No hilar or mediastinal mass or adenopathy is observed. Normal adrenal glands. IMPRESSION: No CT evidence of pulmonary embolus. Stable subsegmental atelectatic areas in the bases bilaterally. No new infiltrate. Cyst in the upper pole the left kidney. Splenic tissue is noted in the left upper quadrant in this patient status post splenectomy. <Electronically signed by Moreno Mullins > 05/01/20 [id number]
[2020-05-01] MEDS ORDERED: IPRATROPIUM 0.5MG/ALBUTEROL 2.5MG INH SOL UD 3ML (DUONEB) NEB ONE (17:00)
[2020-05-01] MEDS ORDERED: ALBUTEROL SULFATE 2.5 MG/0.5 ML INH NEB SOLN INH ONE (17:00)
[2020-05-01] MEDS ORDERED: PRED20TA PO (18:25)
[2020-05-01 18:47] VITALS: BP 134/99
--- NOTE | 2020-05-02 07:11 | ECGEPIP ---
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
== END 2020-05-01 18:48 | disposition home or self-care (01) ==
LOC: M ED 13:20
DX: J20.9 Acute bronchitis, unspecified (principal); I50.9 Heart failure, unspecified; E03.9 Hypothyroidism, unspecified; E78.5 Hyperlipidemia, unspecified; G43.909 Migraine, unspecified, not intractable, without status migrainosus; G47.33 Obstructive sleep apnea (adult) (pediatric); Z99.89 Dependence on other enabling machines and devices; Z79.899 Other long term (current) drug therapy; Z79.890 Hormone replacement therapy; Z79.01 Long term (current) use of anticoagulants; Z88.1 Allergy status to other antibiotic agents; Z88.2 Allergy status to sulfonamides; Z88.5 Allergy status to narcotic agent
CPT/HCPCS: 36415; 71045; 71275; 80048; 80076; 82550; 82553; 83880; 84436; 84443; 84484; 85025; 85610; 87040; 87631; 93005; 93041; 94640; 94760; 96361; 96374; 96375; 99284; J1100; J1200; J1885; J2765; Q9967

== ENCOUNTER 2020-05-12 13:42 | Emergency (ER) | payer MEDICARE ==
[~2020-05-12] VITALS: Ht 172.7 cm; Wt 94.9 kg
[~2020-05-12 13:42] MED LIST changes: +AMLO2.5T3; +PRED20TA PO
[2020-05-12] MEDS ORDERED: xyzal (14:02)
[2020-05-12] MEDS ORDERED: ALBU83IN (14:02)
[2020-05-12] MEDS ORDERED: TELM1TAB33 (14:02)
--- NOTE | 2020-05-12 16:19 | REP ---
INDICATION: DYSPNEA/COUGH COMPARISON: 05/01/2020 TECHNIQUE: Portable AP view of the chest FINDINGS: The mediastinum and cardiac silhouette are stable and within normal limits for portable technique. The lung melo demonstrate right basilar atelectasis. No focal consolidation. No effusion. No pneumothorax. IMPRESSION: Chronic changes with superimposed right basilar atelectasis. <Electronically signed by Pedro Langley > 05/12/20 [id number]
[2020-05-12 17:40] LABS: BASO # 0.1 10^3/uL (0.0-0.2); BASO % 0.5 % (0.0-1.0); EOS # 0.4 10^3/uL (0.0-0.5); EOS % 3.5 % (0.0-3.0); HEMATOCRIT 48.1 % (36.0-47.0); HEMOGLOBIN 15.4 g/dl (12.0-15.5); LYMPH # 3.5 10^3/uL (1.5-5.0); LYMPH % 33.1 % (24.0-44.0); MEAN CORPUSCULAR HEMOGLOBIN 31.6 pg (27.0-33.0); MEAN CORPUSCULAR VOLUME 98.6 fl (80.0-96.0); MONO # 1.1 10^3/uL (0.0-0.8); MONO % 10.4 % (0.0-5.0); NEUTROPHILS # 5.6 10^3/uL (1.5-8.5); NEUTROPHILS % 52.2 % (36.0-66.0); PLATELET COUNT, AUTOMATED 242 10^3/uL (150-450); RED BLOOD COUNT 4.88 10^6/uL (4.00-5.40); WHITE BLOOD COUNT 10.7 10^3/uL (4.0-10.0)
[2020-05-12] MEDS ORDERED: KETOROLAC 30 MG/ML 1ML VIAL IV ONE (18:00)
[2020-05-12 18:15] LABS: ALBUMIN 3.6 GM/DL (3.2-5.2); ALT/SGPT 26 U/L (12-78); BILIRUBIN,DIRECT < 0.1 MG/DL (0.0-0.2); BILIRUBIN,TOTAL 0.3 MG/DL (0.2-1.0); BLOOD UREA NITROGEN 14 MG/DL (7-18); CALCIUM LEVEL 9.1 MG/DL (8.5-10.1); CARBON DIOXIDE LEVEL 27 MEQ/L (21-32); CHLORIDE LEVEL 108 MEQ/L (98-107); CK-MB VALUE MASS 2.1 NG/ML (<3.6); CPK CREATINE PHOSPHOKINASE 54 U/L (26-192); CREATININE FOR GFR 0.95 MG/DL (0.55-1.30); GLOMERULAR FILTRATION RATE > 60.0 (>51); GLUCOSE, FASTING 98 MG/DL (70-100); MB/CK RELATIVE INDEX 3.89 (< OR =4); NT-PRO BNP 154 PG/ML (<125); SODIUM LEVEL 142 MEQ/L (136-145); TOTAL PROTEIN 6.6 GM/DL (6.4-8.2); TROPONIN I < 0.02 NG/ML (< 0.10)
[2020-05-12] MEDS ORDERED: ISOVUE-370 76% 100ML VIAL As Ordered ONE (18:35)
[2020-05-12 18:42] LABS: ABG BASE EXCESS 0.8 (-2.0-2.0); ABG HCO3 24.4 MEQ/L (22.0-26.0); ABG O2 SATURATION 95.9 % (95.0-99.0); ABG PARTIAL PRESSURE CO2 36.3 mmHg (35.0-45.0); ABG PARTIAL PRESSURE O2 73.2 mmHg (75.0-100.0); ABG STANDARD HCO3 25.1 MEQ/L (22.0-26.0); ABG TOTAL CO2 25.6 MEQ/L (22.0-29.0); ABG pH (ARTERIAL) 7.446 UNITS (7.350-7.450)
[2020-05-12] MEDS ORDERED: MORPHINE 4 MG/ML 1ML VIAL/SYRINGE (J2270) IV ONE (19:00)
--- NOTE | 2020-05-12 19:16 | REPVR ---
PROCEDURE INFORMATION: Exam: CT Angiography Chest With Contrast Exam date and time: 05/12/2020 6:51 PM Age: 59 years old Clinical indication: Shortness of breath; Additional info: SOB; Chest pain TECHNIQUE: Imaging protocol: Computed tomographic angiography of the chest with intravenous contrast. 3D rendering (Not supervised by radiologist): MIP and/or 3D reconstructed images were created by the technologist. Radiation optimization: All CT scans at this facility use at least one of these dose optimization techniques: automated exposure control; mA and/or kV adjustment per patient size (includes targeted exams where dose is matched to clinical indication); or iterative reconstruction. Contrast material: ISOVUE 370; Contrast volume: 100 ml; Contrast route: INTRAVENOUS (IV); COMPARISON: CT ANGIO CHEST 05/01/2020 3:45 PM FINDINGS: Pulmonary arteries: Peripheral pulmonary artery evaluation limited by cardiac and respiratory motion artifact. Central pulmonary arteries show no intraluminal defect suggestive of clot. Aorta: Thoracic aorta is ectatic without focal aneurysm or dissection. No change. Lungs: Pulmonary vascular/interstitial pattern does not suggest active pulmonary edema. Atelectasis is present at the lung bases. No suspicious lung mass or air space process. No central endobronchial lesion. Pleural space: No pleural effusion or pneumothorax. Heart: Multi-chamber cardiac dilatation is noted. Lymph nodes: No enlarged mediastinal lymph nodes. Kidneys and ureters: Left renal simple cyst measuring 5.2 cm, incidental. Bones/joints: Bony structures show no acute fracture or destructive process. IMPRESSION: 1. No evidence of acute, central pulmonary embolus. Peripheral pulmonary arterial evaluation is limited by cardiac and respiratory motion artifact. 2. Cardiac enlargement without evidence of active pulmonary edema 3. No other acute or concerning focal intrathoracic abnormality. COMMENTS: Consistent with the [employer]'s Incidental Findings Committee white paper (J Am Wesley Radiol 2018): Any incidental renal lesion less than 1 cm or classified as too small to characterize, or any incidental cystic renal lesion characterized as simple-appearing, is likely benign. No follow-up imaging is recommended for these lesions per consensus recommendations based on imaging criteria. Electronically signed by: Vipin Delgado On 05/12/2020 19:16:43 PM
[2020-05-12] MEDS ORDERED: KEFL500C17 PO (19:42)
[2020-05-12 20:00] VITALS: BP 151/95
--- NOTE | 2020-05-13 06:53 | ECGEPIP ---
[facility] - ED Test Date: 2020-05-12 Pat Name: LIDIA BAUTISTA Department: Room: - Gender: Female Manager Clinical Informatics: : 1960 Requested By: LYNNE MARCANO Order Number: [id number] Reading MD: Luis Reyes Measurements Intervals [place] Rate: 82 P: 25 MO: 174 QRS: 0 QRSD: 93 T: 45 QT: 364 QTc: 427 Interpretive Statements SINUS RHYTHM INDETERMINATE AXIS ST DEVIATION AND MODERATE T-WAVE ABNORMALITY, CONSIDER ANTERIOR ISCHEMIA Electronically Signed on 05-13-2020 6:52:33 EST by Luis Reyes
== END 2020-05-12 20:20 | disposition home or self-care (01) ==
LOC: M ED 13:42
DX: N39.0 Urinary tract infection, site not specified (principal); J06.9 Acute upper respiratory infection, unspecified; I34.1 Nonrheumatic mitral (valve) prolapse; K21.9 Gastro-esophageal reflux disease without esophagitis; Z79.899 Other long term (current) drug therapy; Z79.01 Long term (current) use of anticoagulants; Z88.1 Allergy status to other antibiotic agents; Z88.2 Allergy status to sulfonamides; Z88.8 Allergy status to other drugs, medicaments and biological substances
CPT/HCPCS: 36600; 71045; 71275; 80048; 80076; 81001; 82550; 82553; 82803; 83605; 83880; 84443; 84484; 85025; 87086; 93005; 93041; 96374; 96375; 99285; J1885; J2270; Q9967; U0003

== ENCOUNTER → 2020-05-19 | Outpatient (REF) | payer MEDICARE ==
[~2020-05-19] MED LIST changes: +ALBU83IN; +KEFL500C17 PO; +TELM1TAB33; +xyzal
[2020-05-20 10:55] LABS: APPEARANCE, URINE CLEAR (CLEAR); BACTERIA, URINE AUTO NEGATIVE (NEGATIVE); BILIRUBIN, URINE AUTO NEGATIVE (NEGATIVE); BLOOD, URINE BLOOD 1+ (NEGATIVE); COLOR, URINE YELLOW (YELLOW); GLUCOSE, URINE (UA) AUTO NEGATIVE (NEGATIVE); KETONE, URINE AUTO NEGATIVE (NEGATIVE); LEUKOCYTE ESTERASE, URINE AUTO NEGATIVE (NEGATIVE); NITRITE, URINE AUTO NEGATIVE (NEGATIVE); PROTEIN, URINE AUTO NEGATIVE (NEGATIVE); RBC, URINE AUTO 3 /HPF (0-3); SPECIFIC GRAVITY URINE AUTO 1.016 (1.002-1.035); SQUAMOUS EPITHELIAL CELL UR AU 0 /HPF (0-6); UROBILINOGEN, URINE AUTO 0.2 mg/dL (0.0-2.0); WBC, URINE AUTO 1 /HPF (0-3)
== END ==
LOC: M SFHCPLAZ 10:24
PROVIDERS: ATTEND Family Medicine
DX: R10.9 Unspecified abdominal pain (principal)

== ENCOUNTER → 2020-06-04 | Outpatient (REF) | payer MEDICARE ==
[~2020-06-04] MED LIST changes: -ALBU83IN; +ALBU83IN INH; +DOXY100T27 PO; +HM S0.65 NARES; +MONT10TA10 PO; -MONT5TAB2 PO; +PRED10TA2 PO
[2020-06-04 13:06] LABS: BACTERIA, URINE AUTO NEGATIVE (NEGATIVE); MUCUS, URINE SMALL (NEGATIVE); RBC, URINE AUTO 1 /HPF (0-3); SQUAMOUS EPITHELIAL CELL UR AU 0 /HPF (0-6); WBC, URINE AUTO 1 /HPF (0-3)
== END ==
LOC: M LAB REF 12:24
PROVIDERS: ATTEND Nurse Practitioner Family
DX: R30.0 Dysuria (principal)

== ENCOUNTER → 2020-06-04 | Outpatient (CLI) | payer MEDICARE ==
--- NOTE | 2020-06-04 08:48 | REP ---
INDICATION: RT FLANK PAIN ? STONES COMPARISON: Comparison study March 06, 2020.. TECHNIQUE: Helical scanning is acquired in 4 mm axial images were reformatted. Coronal and sagittal MPR images were generated and reviewed. 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 There are clips in the left upper quadrant. On axial CT images there is some chronic fibrotic change in the right middle lobe unchanged from the March 06, 2020 study. Pleuroparenchymal fibrosis is seen in the right posterior pleural angle. the lung bases are otherwise clear. There are surgical clips in the left upper quadrant. The patient appears to be status post splenectomy but there are residual or recurrence splenic nodules in the left upper quadrant. There is a 5.4 cm simple cyst in the upper pole the left kidney and a smaller cyst is seen in the upper pole on the right. These are unchanged. There is an intrarenal calculus in the left kidney posteriorly at mid renal level. This measures 4 mm in greatest diameter. There is no evidence of hydronephrosis on either side. No ureteral stone is seen. Some vascular calcification is noted. Normal caliber aorta. No retroperitoneal mass or adenopathy is seen. No abnormality is noted in the gallbladder or the pancreas. No focal liver lesion is seen. A normal appendix is noted in the right lower quadrant. There is fairly advanced sigmoid colon diverticulosis without CT evidence of diverticulitis. No uterine or adnexal abnormality is appreciated. Urinary bladder is intact. No abdominal wall defect is seen. IMPRESSION: Intrarenal nephrolithiasis left kidney without evidence of hydronephrosis. No ureteral or bladder stone. Left colonic diverticulosis without CT evidence of diverticulitis. Patient is status post splenectomy but regenerated splenic nodules are again noted in the left upper quadrant unchanged. Bilateral renal cortical cysts are observed. No acute abnormality. Normal appendix. <Electronically signed by Moreno Mullins > 06/04/20 0615
== END ==
LOC: M RAD 08:15
PROVIDERS: ATTEND Family Medicine
DX: N20.0 Calculus of kidney (principal); K57.30 Diverticulosis of large intestine without perforation or abscess without bleeding; Q61.02 Congenital multiple renal cysts; R10.9 Unspecified abdominal pain; R30.0 Dysuria

== ENCOUNTER 2020-06-22 12:24 | Inpatient (IN) | payer MEDICARE ==
[~2020-06-22] VITALS: Ht 172.7 cm; Wt 97.6 kg
[~2020-06-22 12:24] MED LIST changes: -DOXY100T27 PO; -HM S0.65 NARES; -PRED10TA2 PO
[2020-06-22] MEDS ORDERED: ASPIRIN 81 MG CHEW TABLET PO ONE (12:45)
[2020-06-22 12:59] LABS: BASO # 0.1 10^3/uL (0.0-0.2); BASO % 0.6 % (0.0-1.0); EOS # 0.4 10^3/uL (0.0-0.5); EOS % 4.8 % (0.0-3.0); HEMATOCRIT 50.4 % (36.0-47.0); HEMOGLOBIN 16.5 g/dl (12.0-15.5); LYMPH # 3.1 10^3/uL (1.5-5.0); LYMPH % 37.3 % (24.0-44.0); MEAN CORPUSCULAR HEMOGLOBIN 31.5 pg (27.0-33.0); MEAN CORPUSCULAR HGB CONC 32.7 g/dl (32.0-36.5); MEAN CORPUSCULAR VOLUME 96.2 fl (80.0-96.0); MONO % 12.1 % (0.0-5.0); NEUTROPHILS # 3.7 10^3/uL (1.5-8.5); PLATELET COUNT, AUTOMATED 280 10^3/uL (150-450); RED BLOOD COUNT 5.24 10^6/uL (4.00-5.40)
[2020-06-22 13:01] LABS: WHITE BLOOD COUNT 8.3 10^3/uL (4.0-10.0)
--- NOTE | 2020-06-22 13:05 | REP ---
INDICATION: POSS CVA. COMPARISON: 03/06/2020. TECHNIQUE: CT BRAIN PERFORMED IN THE AXIAL PLANE. CORONAL RECONSTRUCTION IMAGES ARE PERFORMED. FINDINGS: There is mild atrophy. There is no midline shift or mass effect. There is no acute intracranial hemorrhage or extra-axial fluid collection. Hubbard-white differentiation is well maintained. There are mild vascular calcifications in the carotid siphons. There is scattered opacification in bilateral ethmoid air cells. IMPRESSION: No acute intracranial hemorrhage, midline shift or mass effect. Ethmoid sinusitis. <Electronically signed by Solomon Hubbard > 06/22/20 [id number]
[2020-06-22 13:10] LABS: INR 0.96; PARTIAL THROMBOPLASTIN TIME 26.4 SECONDS (24.2-38.5)
[2020-06-22] MEDS ORDERED: ISOVUE-370 76% 100ML VIAL As Ordered ONE (13:20)
[2020-06-22 13:27] LABS: BLOOD UREA NITROGEN 22 MG/DL (7-18); CARBON DIOXIDE LEVEL 28 MEQ/L (21-32); CHLORIDE LEVEL 106 MEQ/L (98-107); CREATININE FOR GFR 1.08 MG/DL (0.55-1.30); GLOMERULAR FILTRATION RATE 55.3 (>51); GLUCOSE, FASTING 109 MG/DL (70-100); POTASSIUM SERUM 4.1 MEQ/L (3.5-5.1); SODIUM LEVEL 140 MEQ/L (136-145)
[2020-06-22 13:28] LABS: CALCIUM LEVEL 9.8 MG/DL (8.5-10.1); CK-MB VALUE MASS 2.5 NG/ML (<3.6); CPK CREATINE PHOSPHOKINASE 59 U/L (26-192); MB/CK RELATIVE INDEX 4.24 (< OR =4); TROPONIN I < 0.02 NG/ML (< 0.10)
--- NOTE | 2020-06-22 13:32 | REP ---
INDICATION: CVA. COMPARISON: 05/12/2020. TECHNIQUE: SINGLE PORTABLE AP VIEW OF THE CHEST WAS PERFORMED. FINDINGS: There are very mild interstitial fibrotic changes in each lung base with no evidence of acute infiltrate. Heart is upper limits of normal in size. There is some tortuosity of the thoracic aorta. The mediastinal silhouette is unchanged. Metallic clips are seen in the left upper quadrant of the abdomen. IMPRESSION: NO ACUTE PULMONARY DISEASE. <Electronically signed by Solomon Hubbard > 06/22/20 [id number]
--- NOTE | 2020-06-22 14:00 | REP ---
INDICATION: cva. COMPARISON: None. TECHNIQUE: CT contrast dose: 100 ml of intravenous Isovue 370. CT technique: Helical scanning is acquired. 2 mm high resolution axial images are reformatted. In addition maximal intensity projection, and complex plane multiplanar re-formation images are generated. Surface rendered color 3-D images are generated. FINDINGS: Brachiocephalic arteries widely patent. The bilateral common carotid and internal carotid arteries are widely patent. There is no evidence of significant stenosis of either internal carotid artery. There are patent bilateral vertebral arteries, the left vertebral artery is dominant. The visualized upper lung melo are clear. There are degenerative changes of the spine. IMPRESSION: Common carotid and internal carotid arteries are widely patent with no occlusion and no evidence of significant stenosis. <Electronically signed by Solomon Hubbard > 06/22/20 [id number]
--- NOTE | 2020-06-22 14:03 | REP ---
INDICATION: cva. COMPARISON: None. TECHNIQUE: CT contrast dose: 100 ml of intravenous Isovue 370. CT technique: Helical scanning is acquired. 2 mm axial images are reformatted. Maximal intensity projection and multiplanar re-formation images are generated along with 3-D surface rendered color imaging which is viewed rotational. FINDINGS: Intracranial internal carotid arteries are widely patent. Anterior, middle and posterior cerebral arteries are patent and symmetrical without definite evidence for significant stenosis. There is a right posterior communicating artery which is widely patent. Anterior communicating arteries are patent. There is no aneurysm or AVM. IMPRESSION: Intracranial internal carotid arteries are widely patent. No evidence of occlusion or definite stenosis of the anterior, middle or posterior cerebral arteries. <Electronically signed by Solomon Hubbard > 06/22/20 1470
[2020-06-22] MEDS ORDERED: ACETAMINOPHEN 325 MG TAB PO ONE (14:30)
[2020-06-22 14:33] LABS: RSV AMPLIFICATION NEGATIVE (NEGATIVE)
[2020-06-22] MEDS ORDERED: DOXY100T27 PO (15:28)
[2020-06-22] MEDS ORDERED: HM S0.65 NARES (15:28)
[2020-06-22 16:00] VITALS: BP 132/79
[2020-06-22] MEDS ORDERED: diazePAM 10 MG TAB PO PRN (16:15)
[2020-06-22] MEDS: KETOROLAC 30 MG/ML 1ML VIAL IV ONE ×2 (16:43→20:19)
--- NOTE | 2020-06-22 17:11 | ECGEPIP ---
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
[2020-06-22] MEDS: diphenhydrAMINE 50MG/ML VIAL (J1200) IV ONE ×2 (17:21→20:19)
[2020-06-22] MEDS: METOCLOPRAMIDE INJ 10MG/2ML VIAL (J2765 PER 1) IV ONE ×2 (17:21→20:19)
--- NOTE | 2020-06-22 19:19 | HPEPDOC ---
General Date of Admission 06/22/20 Date of Service: Jun 22, 2020 Chief Complaint The patient is a 59-year-old female admitted with a reason for visit of Poss Cva. History of Present Illness 59 year old female presented to the ED with 2 to 3 weeks of intermittent numbness of face along with headache. Initially it was on both sides of the face and top of the head but over the past week it is localized just to the right side of the face and right side of the head. She had called her PMD and was sup posed to see him tomorrow but this morning she did a lot of exertion as her washing machine had leaked and she exerted herself cleaning the mess . After that she felt increased pain at the right side of the head and numbness of the right face like the right face was frozen . This happened at about 10: 30 am. This was associated with feeling of heaviness and thickness of the tongue. She felt like she could not get the words out properly as she could not control alyson movement of the tongue. She also complained of drooping of the right side of her face. She also complained of difficulty in keeping her right eye open and blurring of vision and double vision of the right eye. She also has been feeling itchiness of the right eye. She reports that it feels like she has lost her right eye. She reports she has been suffering from sinusitis with nasal congestion for the past several days and taking an antibiotic. She also felt some numbness on the lat side of right feet and right leg. Denied any weakness. She does say that she has a torn meniscus at the right knee. In triage she was noted to have right facial droop. CT head, CTA Head and CTA neck did not show any large vessel occlusion , CT head negative. She was admitted to rule out for stroke. Home Medications Scheduled Carvedilol (Carvedilol) 12.5 Mg Tablet, 12.5 MG PO BID, (Reported) Cholecalciferol (Vitamin D3) (Vitamin D3) 1,000 Unit Tablet, 2,000 UNITS PO DAILY, (Reported) Clopidogrel Bisulfate (Clopidogrel) 75 Mg Tablet, 75 MG PO DAILY, (Reported) Doxycycline Monohydrate (Doxycycline Monohydrate) 100 Mg Tablet, 100 MG PO BID, (Reported) Folic Acid (Folic Acid) 1 Mg Tab, 2 MG PO DAILY, (Reported) Levothyroxine Sodium (Levothyroxine Sodium) 25 Mcg Tab, 25 MCG PO DAILY, (Reported) Montelukast Sodium (Montelukast Sodium) 10 Mg Tablet, 10 MG PO QHS, (Reported) Rosuvastatin Calcium (Crestor) 40 Mg Tab, 20 MG PO DAILY, (Reported) Telmisartan (Telmisartan) 20 Mg Tablet, 20 MG BID, (Reported) Trazodone HCl (Trazodone HCl) 100 Mg Tablet, 100 MG PO QHS, (Reported) Scheduled PRN Albuterol Sulf (Albuterol Sulfate) 2.5 Mg/3 Ml Vial.neb, 1 VIAL INH Q6H PRN for SOB/WHEEZING, (Reported) Diazepam (Diazepam) 10 Mg Tablet, 10 MG PO BID PRN for ANXIETY, (Reported) Sodium Chloride (Saline Nasal [place]) 44 Ml [place], 1 SPRAY NARES QID PRN for CONGESTION, (Reported) Allergies Coded Allergies: Sulfa (Sulfonamide Antibiotics) (Verified Allergy, Severe, RESP ARREST, 08/16/18) pentazocine (Verified Adverse Reaction, Intermediate, RASH, 08/16/18) Past Medical History Medical History Stroke Vs TIA in 2016 received TPA Cognitive impairment possibly secondary from previous head injury PTSD MDD Migraine Right knee meniscus tear Right Knee OA. HTN GERD / PUD Hypothyroidism DDD / chronic back pain/cervical and thoracic:Thoracic disc protrusions at T7-8 and to a lesser extent, T6-7. There is disc bulging at the T8-9 and T9-10. Dyslipidemia Nephrolithiasis requiring lithotripsy Grade 1 Diastolic Dysfunction / CHF JORDAN, did not tolerate CPAP Splenectomy with regenerated splenic nodules Diverticulosis History of heavy tobacco abuse, History of polysubstance abuse, including cocaine Social History * Smoker: former Smoker Drugs: denies A-FIB/CHADSVASC A-FIB History Current/History of A-Fib/PAF?: No Review of Systems Constitutional: Denies: Chills, Fever, Night Sweats Eyes: Reports: Vision change, Other (itchiness of right eye, frequent blinking, difficulty in opening th eeys , muscle spasms around the eyes and face) ENT: Reports: Head Aches (right), Other Symptoms (right side of face was drooping); Denies: Ear Pain, Dysphagia Skin: Denies: Rash, Lesions, Breakdown Pulmonary: Denies: Dyspnea, Cough Cardiovascular: Denies: Chest Pain, Palpitations, Orthopnea, Paroxysmal Noc. Dyspnea, Lt Headedness Gastrointestinal: Denies: Nausea, Vomiting, Abdominal Pain, Diarrhea Genitourinary: Denies: Dysuria, Frequency, Incontinence, Retention Neurological: Reports: Numbness (right face and top of head), Change in speech Psych: Reports: Depression Physical Examination General Exam: Positive: Alert, Cooperative, No Acute Distress Eye Exam: Positive: EOMI, Ptosis, Other Eye Symptoms; Negative: Sclera icteric ENT Exam: Positive: Atraumatic, Mucous membr. moist/pink, Pharynx Normal Neck Exam: Positive: Supple; Negative: JVD, thyromegaly Chest Exam: Positive: Clear to auscultation, Normal air movement Heart Exam: Positive: Rate Normal, Regular Rhythm, Normal S1, Normal S2; Negative: Murmurs, Rubs Abdomen Exam: Positive: Normal bowel sounds, Soft; Negative: Tenderness, Hepatospenomegaly Extremity Exam: Positive: Normal pulses; Negative: Clubbing, Cyanosis, Edema Skin Exam: Positive: Nl turgor and temperature; Negative: Breakdown, Lesion Neuro Exam: Positive: Normal Speech, Strength at 5/5 X4 ext, Normal Tone, Other (left facial deviation. flattening of right nasolabial crease, ) Vital Signs Vital Signs Date Time Temp Pulse Resp B/P (MAP) Pulse Ox O2 Delivery O2 Flow Rate FiO2 06/22/20 13:00 79 20 115/89 (98) 96 Room Air 06/22/20 12:59 97.9 Laboratory Data Labs 24H Laboratory Tests 2 06/22/20 12:38: Immature Granulocyte % (Auto) 0.2, Neutrophils (%) (Auto) 45.0, Lymphocytes (%) (Auto) 37.3, Monocytes (%) (Auto) 12.1H, Eosinophils (%) (Auto) 4.8H, Basophils (%) (Auto) 0.6, Neutrophils # (Auto) 3.7, Lymphocytes # (Auto) 3.1, Monocytes # (Auto) 1.0H, Eosinophils # (Auto) 0.4, Basophils # (Auto) 0.1, Nucleated Red Blood Cells % (auto) 0.0, Prothrombin Time 13.0, Prothromb Time International Ratio 0.96, Activated Partial Thromboplast Time 26.4, Anion Gap 6L, Glomerular Filtration Rate 55.3, Calcium Level 9.8, Total Creatine Kinase 59, Creatine Kinase MB 2.5, Creatine Kinase MB Relative Index 4.24H, Troponin I < 0.02 06/22/20 12:54: Bedside Glucose (Misc Panel) 114H 06/22/20 13:00: POC Prothrombin Time (Misc) 12.1, POC INR (Misc) 1.0 06/22/20 13:03: POC Glucose (Misc Panel) 113H, POC Sodium (Misc Panel) 139, POC Potassium (Misc Panel) 3.8, POC Chloride (Misc Panel) 104, POC Total CO2 (Misc Panel) 24.0, POC Blood Urea Nitrogen (Misc Panel 22, POC Ionized Calcium (Misc Panel) 5.0, POC Creatinine (Misc Panel) 1.0, POC Hematocrit (Misc Panel) 52.0H 06/22/20 13:49: Coronavirus (COVID-19)(PCR) NEGATIVE, Influenza Type A (RT-PCR) NEGATIVE, Influenza Type B (RT-PCR) NEGATIVE, Respiratory Syncytial Virus (PCR) NEGATIVE CBC/BMP Laboratory Tests 06/22/20 12:38 Assessment/Plan 59 year old female presented to the ED with 2 to 3 weeks of intermittent numbness of face along with headache. Initially it was on both sides of the face and top of the head but over the past week it is localized just to the right side of the face and right side of the head. She had called her PMD and was supposed to see him tomorrow but this morning she did a lot of exertion as her washing machine had leaked and she exerted herself cleaning the mess . After that she felt increased pain at the right side of the head and numbness of the right face like the right face was frozen . This happened at about 10: 30 am. This was associated with feeling of heaviness and thickness of the tongue. She felt like she could not get the words out properly as she could not control alyson movement of the tongue. She also complained of drooping of the right side of her face. She also complained of difficulty in keeping her right eye open and blurring of vision and double vision of the right eye. She also has been feeling itchiness of the right eye. She reports that it feels like she has lost her right eye. She reports she has been suffering from sinusitis for the past several days and taking an antibiotic. She also felt some numbness on the lat side of right feet and right leg. Denied any weakness. She does say that she has a torn meniscus at the right knee. In triage she was noted to have right facial droop. CT head, CTA Head and CTA neck did not show any large vessel occlusion , CT head negative. She was admitted to rule out for stroke. Right facial numbness, right headache, right facial drooping blurring of vision it involves whole of the right face so unlikely to be a stroke. Likely this is a Cluster headache or atypical migraine which may have been precipitated by sinusitis. Her right eye symptoms almost resolved with 1000 mg of tylenol. There was no weakness of facial muscles. will give Metoclopromide, benadryl and ketorolac. will order oxygen through non rebreather for 30 mins to see if that helps. ordered MRI brain including the paranasal sinuses. If positive for any acute stroke please call neurology Continue Clopidogrel , statin. Ethmoid sinusitis continue Doxycycline. check MRI for any extra sinusidal involvement. Hypertension telmisartan, coreg. HLD statin Plan / VTE VTE Prophylaxis Ordered?: Yes WALDEMAR FAULKNER MD Jun 22, 2020 15:12
[2020-06-22] MEDS ORDERED: MONTELUKAST 10 MG TAB PO SCH (21:00)
[2020-06-22] MEDS ORDERED: ENOXAPARIN 40MG/0.4ML SYRINGE (J1650 PER 10MG) SC SCH (21:00)
[2020-06-22] MEDS ORDERED: traZODone 100 MG TAB PO SCH (21:00)
[2020-06-22] MEDS: TELMISARTAN 20 MG TAB PO SCH (21:13)
[2020-06-22] MEDS: DOXYCYCLINE HYCLATE 100MG TABLET PO SCH (21:13)
[2020-06-22] MEDS: CARVedilol 12.5 MG TAB PO SCH (21:14)
[2020-06-22 22:00] VITALS: BP 112/65
[2020-06-23 06:00] VITALS: BP 102/64
[2020-06-23] MEDS ORDERED: LEVOTHYROXINE 25MCG TABLET (0.025MG) PO SCH (06:00)
[2020-06-23] MEDS: EXCEDRIN MIGRAINE TABLET PO PRN ×2 (06:11→14:08)
[2020-06-23 06:41] LABS: HEMATOCRIT 47.7 % (36.0-47.0); HEMOGLOBIN 15.8 g/dl (12.0-15.5); MEAN CORPUSCULAR HEMOGLOBIN 32.2 pg (27.0-33.0); MEAN CORPUSCULAR HGB CONC 33.1 g/dl (32.0-36.5); MEAN CORPUSCULAR VOLUME 97.1 fl (80.0-96.0); PLATELET COUNT, AUTOMATED 250 10^3/uL (150-450); RED BLOOD COUNT 4.91 10^6/uL (4.00-5.40); WHITE BLOOD COUNT 7.7 10^3/uL (4.0-10.0)
[2020-06-23 07:01] LABS: ALBUMIN 3.5 GM/DL (3.2-5.2); BILIRUBIN,TOTAL 0.5 MG/DL (0.2-1.0); CALCIUM LEVEL 9.4 MG/DL (8.5-10.1); CREATININE FOR GFR 1.1 MG/DL (0.55-1.30); GLOMERULAR FILTRATION RATE 54.1 (>51); POTASSIUM SERUM 3.7 MEQ/L (3.5-5.1); TOTAL PROTEIN 6.4 GM/DL (6.4-8.2)
[2020-06-23] MEDS: DOXYCYCLINE HYCLATE 100MG TABLET PO SCH (08:46)
[2020-06-23 08:47] VITALS: BP 116/76
[2020-06-23] MEDS: TELMISARTAN 20 MG TAB PO SCH (08:47)
[2020-06-23] MEDS: CARVedilol 12.5 MG TAB PO SCH (08:47)
[2020-06-23] MEDS ORDERED: FOLIC ACID 1 MG TAB PO SCH (09:00)
[2020-06-23] MEDS ORDERED: CLOPIDOGREL 75 MG TAB PO SCH (09:00)
[2020-06-23] MEDS ORDERED: ROSUVASTATIN 10 MG TAB (CRESTOR) PO SCH (09:00)
[2020-06-23] MEDS ORDERED: ASPIRIN 81 MG ENTERIC TAB PO SCH (09:00)
--- NOTE | 2020-06-23 12:04 | REPVR ---
PROCEDURE INFORMATION: Exam: MR Head Without Contrast Exam date and time: 06/23/2020 11:08 AM Age: 59 years old Clinical indication: Weakness, facial and other: Right facial numbness please include the paranasal sinuses. TECHNIQUE: Imaging protocol: MR of the head without contrast. COMPARISON: MRI-Brain without Contrast 03/06/2020 8:05 PM FINDINGS: Brain: There is no acute intracranial hemorrhage, cerebral edema, or midline shift. No restricted diffusion is present to suggest acute infarction. Minimal chronic small vessel ischemic disease is noted in the cerebral white matter. Mild cerebral volume loss is present. Cerebral ventricles: No hydrocephalus. Bones/joints: Unremarkable. Paranasal sinuses: There is mild mucosal thickening noted within the paranasal sinuses. Mastoid air cells: The mastoid air cells are clear. Orbital cavity: Unremarkable. Soft tissues: Unremarkable. IMPRESSION: No acute intracranial abnormality. Electronically signed by: Blu Almeida On 06/23/2020 12:04:09 PM
--- NOTE | 2020-06-23 13:20 | DS.PDOC ---
Discharge Summary General Date of Admission Jun 22, 2020 at 14:51 Date of Discharge 06/23/2020 Discharge Summary PROCEDURES PERFORMED DURING STAY: [None]. ADMITTING DIAGNOSES / DISCHARGE DIAGNOSES: R sided facial numbness / blurred vision / right sided headache - possibly 2/2 atypical migraine, possibly 2/2 cluster headache, Ethmoid sinusitis HTN DLP Stroke Vs TIA in 2016 received TPA Cognitive impairment possibly secondary from previous head injury PTSD MDD Migraine Right knee meniscus tear Right Knee OA. HTN GERD / PUD Hypothyroidism DDD / chronic back pain/cervical and thoracic:Thoracic disc protrusions at T7-8 and to a lesser extent, T6-7. There is disc bulging at the T8-9 and T9-10. Nephrolithiasis requiring lithotripsy Grade 1 Diastolic Dysfunction / CHF JORDAN, did not tolerate CPAP Splenectomy with regenerated splenic nodules Diverticulosis History of heavy tobacco abuse, History of polysubstance abuse, including cocaine DVT prophylaxis COMPLICATIONS/CHIEF COMPLAINT: R sided facial numbness / droop HISTORY OF PRESENT ILLNESS: Patient is a 59 year old female presented to the ED with 2 to 3 weeks of intermittent numbness of face along with headache. Initially it was on both peter es of the face and top of the head but over the past week it is localized just to the right side of the face and right side of the head. She had called her PMD and was supposed to see him tomorrow but this morning she did a lot of exertion as her washing machine had leaked and she exerted herself cleaning the mess . After that she felt increased pain at the right side of the head and numbness of the right face like the right face was frozen . This happened at about 10: 30 am. This was associated with feeling of heaviness and thickness of the tongue. She felt like she could not get the words out properly as she could not control alyson movement of the tongue. She also complained of drooping of the right side of her face. She also complained of difficulty in keeping her right eye open and blurring of vision and double vision of the right eye. She also has been feeling itchiness of the right eye. She reports that it feels like she has lost her right eye. She reports she has been suffering from sinusitis with nasal congestion for the past several days and taking an antibiotic. She also felt some numbness on the lat side of right feet and right leg. Denied any weakness. She does say that she has a torn meniscus at the right knee. In triage she was noted to have right facial droop. CT head, CTA Head and CTA neck did not show any large vessel occlusion , CT head negative. She was admitted to rule out for stroke. HOSPITAL COURSE: R sided facial numbness / blurred vision / right sided headache - possibly 2/2 atypical migraine, possibly 2/2 cluster headache, - No facial droop on exam this morning - No muscle weakness - Imaging noted above; no evidence of acute stroke - s/p Reglan / Benadryl / Ketorolac - c/w home regimen of Plavix / Rosuvastatin - Will start Prednisone taper - Will have outpatient follow up within 7 days Ethmoid sinusitis - Confirmed on imaging - c/w Doxycycline HTN - BP well controlled DLP - c/w Rosuvastatin DVT prophylaxis - c/w Lovenox DISCHARGE MEDICATIONS: Please see below. ALLERGIES: Please see below. PHYSICAL EXAMINATION ON DISCHARGE: Vitals (See below) General: Lying in bed, appears comfortable, AAOx3 HEENT: NC, AT CVS: RRR, +S1S2 Lungs: Fair air entry b/l, -w/r/r Abdomen: Soft, ND, NT Extremities: No evidence of edema, - Calf tenderness LABORATORY DATA: Please see below. IMAGING: CT head No acute intracranial hemorrhage, midline shift or mass effect. Ethmoid sinusitis. CXR NO ACUTE PULMONARY DISEASE. CTA Neck Common carotid and internal carotid arteries are widely patent with no occlusion and no evidence of significant stenosis. CTA head Intracranial internal carotid arteries are widely patent. No evidence of occlusion or definite stenosis of the anterior, middle or posterior cerebral arteries. MRI Brain No acute intracranial abnormality. ACTIVITY: [As tolerated]. DISCHARGE PLAN: Follow-up with primary care provider, and neurology within the next 7 days Remain compliant with treatment plan and medications Return to the ER if you experience any problems DISPOSITION: Home DISCHARGE CONDITION: [Stable]. TIME SPENT ON DISCHARGE: 35 minutes. Vital Signs/I&Os Vital Signs Date Time Temp Pulse Resp B/P (MAP) Pulse Ox O2 Delivery O2 Flow Rate FiO2 06/23/20 08:47 80 116/76 06/23/20 06:00 97.1 20 98 06/22/20 16:15 Room Air I&O- Last 24 Hours up to 6 AM 06/23/20 06:00 Intake Total 1140 ml Output Total 800 ml Balance 340 ml Laboratory Data Labs 24H Laboratory Tests 2 06/22/20 13:49: Coronavirus (COVID-19)(PCR) NEGATIVE, Influenza Type A (RT-PCR) NEGATIVE, Influenza Type B (RT-PCR) NEGATIVE, Respiratory Syncytial Virus (PCR) NEGATIVE 06/23/20 05:43: Nucleated Red Blood Cells % (auto) 0.0, Anion Gap 8, Glomerular Filtration Rate 54.1, Calcium Level 9.4, Total Bilirubin 0.5, Aspartate Amino Transf (AST/SGOT) 10, Alanine Aminotransferase (ALT/SGPT) 16, Alkaline Phosphatase 99, Total Protein 6.4, Albumin 3.5, Albumin/Globulin Ratio 1.2 CBC/BMP Laboratory Tests 06/23/20 05:43 Discharge Medications Scheduled Carvedilol (Carvedilol) 12.5 Mg Tablet, 12.5 MG PO BID, (Reported) Cholecalciferol (Vitamin D3) (Vitamin D3) 1,000 Unit Tablet, 2,000 UNITS PO DAILY, (Reported) Clopidogrel Bisulfate (Clopidogrel) 75 Mg Tablet, 75 MG PO DAILY, (Reported) Doxycycline Monohydrate (Doxycycline Monohydrate) 100 Mg Tablet, 100 MG PO BID, (Reported) Folic Acid (Folic Acid) 1 Mg Tab, 2 MG PO DAILY, (Reported) Levothyroxine Sodium (Levothyroxine Sodium) 25 Mcg Tab, 25 MCG PO DAILY, (Reported) Montelukast Sodium (Montelukast Sodium) 10 Mg Tablet, 10 MG PO QHS, (Reported) Rosuvastatin Calcium (Crestor) 40 Mg Tab, 20 MG PO DAILY, (Reported) Telmisartan (Telmisartan) 20 Mg Tablet, 20 MG BID, (Reported) Trazodone HCl (Trazodone HCl) 100 Mg Tablet, 100 MG PO QHS, (Reported) Scheduled PRN Albuterol Sulf (Albuterol Sulfate) 2.5 Mg/3 Ml Vial.neb, 1 VIAL INH Q6H PRN for SOB/WHEEZING, (Reported) Diazepam (Diazepam) 10 Mg Tablet, 10 MG PO BID PRN for ANXIETY, (Reported) Sodium Chloride (Saline Nasal [place]) 44 Ml [place], 1 SPRAY NARES QID PRN for CONGESTION, (Reported) Allergies Coded Allergies: Sulfa (Sulfonamide Antibiotics) (Verified Allergy, Severe, RESP ARREST, 4/3/19) pentazocine (Verified Adverse Reaction, Intermediate, RASH, 08/16/18) ARLETH DIAZ MD Jun 23, 2020 13:20
[2020-06-23] MEDS ORDERED: PRED10TA2 PO (13:56)
== END 2020-06-23 14:57 | disposition home or self-care (01) | DRG 103 ==
LOC: M ED 12:24 → M ED INP 14:51 → M MSPAV 16:31
PROVIDERS: ADMIT Internal Medicine Nephrology; ATTEND Internal Medicine
DX: G44.009 Cluster headache syndrome, unspecified, not intractable (principal); I50.32 Chronic diastolic (congestive) heart failure; F43.10 Post-traumatic stress disorder, unspecified; F32.9 Major depressive disorder, single episode, unspecified; G43.909 Migraine, unspecified, not intractable, without status migrainosus; M17.11 Unilateral primary osteoarthritis, right knee; I11.0 Hypertensive heart disease with heart failure; K21.9 Gastro-esophageal reflux disease without esophagitis; R20.0 Anesthesia of skin; K27.9 Peptic ulcer, site unspecified, unspecified as acute or chronic, without hemorrhage or perforation; R29.810 Facial weakness; E03.9 Hypothyroidism, unspecified; M51.24 Other intervertebral disc displacement, thoracic region; E78.5 Hyperlipidemia, unspecified; G47.33 Obstructive sleep apnea (adult) (pediatric); K57.90 Diverticulosis of intestine, part unspecified, without perforation or abscess without bleeding; J32.2 Chronic ethmoidal sinusitis; Z79.02 Long term (current) use of antithrombotics/antiplatelets; Z79.899 Other long term (current) drug therapy; Z88.2 Allergy status to sulfonamides; Z88.8 Allergy status to other drugs, medicaments and biological substances; Z86.73 Personal history of transient ischemic attack (TIA), and cerebral infarction without residual deficits; Z20.822 Contact with and (suspected) exposure to COVID-19

== ENCOUNTER → 2020-07-14 | Outpatient (REF) | payer MEDICARE ==
[~2020-07-14] MED LIST changes: +DOXY100T27 PO; +HM S0.65 NARES; +PRED10TA2 PO
== END ==
LOC: M LAB REF 12:19
PROVIDERS: ATTEND Nurse Practitioner Family
DX: R30.0 Dysuria (principal)

== ENCOUNTER → 2020-07-22 | Outpatient (CLI) | payer MEDICARE ==
--- NOTE | 2020-07-25 08:11 | SLEEPCENT ---
DATE: 07/22/2020 ORDERED BY: KARIE Ashby Nocturnal polysomnography was performed for evaluation of sleep physiology in this patient with a history suggestive of obstructive sleep apnea syndrome, further supported by home testing revealing a respiratory event index of 44.3. Eight hours and 57 minutes of data were reviewed. There were 420.5 minutes of sleep identified. Sleep latency was mildly prolonged at 19.5 minutes. REM sleep was very delayed and indeed REM sleep was not seen until interventions were made. Overall sleep efficiency was good at 79%. The patient's electrocardiogram showed small complexes with what appeared to be a sinus rhythm and premature ventricular contractions (PVCs). The average heart rate was 65 beats per minute. EEG showed normal waveforms for wake and sleep. There was 121 respiratory events identified of 10 seconds in duration or greater for an apnea hypopnea index of 17.3. The events were obstructive and resulted in arousals and oxygen desaturations below 90%. Having clearly established the presence of obstructive sleep apnea syndrome early in testing the study was stopped shortly before midnight for the application of pressure therapy. The patient was fit with ResMed AirFit F20 full face mask of large size, 4 cm of water pressure were applied to the circuit, and the lights were extinguished. Throughout the remaining hours of testing pressure titration was performed. Optimal sleep was seen on a continuous positive airway pressure (CPAP) pressure of +7 with which the patient slept through REM without respiratory event or oxygen desaturation. IMPRESSIONS: Obstructive sleep apnea syndrome (G47.33). Apnea hypopnea index 17.3. RECOMMENDATION: Nightly use of pressure therapy 7 cm of water.
== END ==
LOC: M SLEEP 20:00
PROVIDERS: ATTEND Nurse Practitioner Family
DX: G47.33 Obstructive sleep apnea (adult) (pediatric) (principal)

== ENCOUNTER → 2020-08-08 | Outpatient (REF) | payer MEDICARE ==
[~2020-08-08] MED LIST changes: +CHLO125TA; +DICY10CA13 PO; -NABU-51 PO; +NABU-71 PO; +ROSU40TA4
== END ==
LOC: M SFHCWAGY 19:18
PROVIDERS: ATTEND Nurse Practitioner Family
DX: R30.0 Dysuria (principal)
CPT/HCPCS: 81002; 87086; G0463

== ENCOUNTER 2020-08-14 14:40 | Emergency (ER) | payer MEDICARE ==
[~2020-08-14] VITALS: Ht 172.7 cm; Wt 96.1 kg
[~2020-08-14 14:40] MED LIST changes: -CHLO125TA; -DICY10CA13 PO; -ROSU40TA4
[2020-08-14] MEDS ORDERED: ROSU40TA4 (14:54)
[2020-08-14] MEDS ORDERED: CHLO125TA (14:54)
[2020-08-14 15:39] LABS: BASO % 0.5 % (0.0-1.0); EOS # 0.3 10^3/uL (0.0-0.5); EOS % 3.1 % (0.0-3.0); LYMPH # 3.7 10^3/uL (1.5-5.0); LYMPH % 44.8 % (24.0-44.0); MEAN CORPUSCULAR HGB CONC 32.7 g/dl (32.0-36.5); MEAN CORPUSCULAR VOLUME 97.7 fl (80.0-96.0); MONO # 1.1 10^3/uL (0.0-0.8); MONO % 13.2 % (2.0-8.0); NEUTROPHILS # 3.2 10^3/uL (1.5-8.5); NEUTROPHILS % 38.2 % (36.0-66.0); PLATELET COUNT, AUTOMATED 278 10^3/uL (150-450); RED BLOOD COUNT 5.32 10^6/uL (4.00-5.40); WHITE BLOOD COUNT 8.3 10^3/uL (4.0-10.0)
[2020-08-14 16:34] LABS: ALBUMIN 4.1 GM/DL (3.2-5.2); BILIRUBIN,DIRECT 0.1 MG/DL (0.0-0.2); BILIRUBIN,TOTAL 0.4 MG/DL (0.2-1.0); TOTAL PROTEIN 7.4 GM/DL (6.4-8.2)
[2020-08-14] MEDS ORDERED: NS 1,000 ML IV ONE (16:35)
[2020-08-14] MEDS ORDERED: ONDANSETRON 4MG/2ML VIAL IV ONE (16:35)
[2020-08-14] MEDS ORDERED: MORPHINE 4 MG/ML 1ML VIAL/SYRINGE (J2270) IV ONE ×2 (16:35→19:15)
--- NOTE | 2020-08-14 17:10 | REP ---
INDICATION: Left flank pain. COMPARISON: Renal ultrasound dated 09/04/2017. TECHNIQUE: Multiple sonographic images of the kidneys including Doppler ultrasound. FINDINGS: The right kidney measures 9.9 x 4.5 x 5.1 cm and is in the low normal size range. The left kidney measures 13.2 x 4.6 x 5.1 cm and is normal size. The renal cortical echogenicity is mildly echogenic bilaterally compatible with medical renal disease. There is no hydronephrosis on the right or the left. There are no renal calculi. There are no solid renal masses. There is a right renal midpole 1.9 cm Bosniak type 1 cyst. There is a left renal upper pole 4.5 cm Bosniak type 1 cyst. Bladder: The bladder is almost completely empty during the examination. However, with color Doppler the left ureteral jet could be identified. We could not identify the right ureteral jet. IMPRESSION: There is no hydronephrosis on the right or the left. There are no renal calculi. There are no solid renal masses. There is a single Bosniak type 1 cyst in each kidney as described. With color Doppler assessment the bladder the left ureteral jet could be identified. The bladder is almost completely empty and we are unable to identify the right ureteral jet. <Electronically signed by Solomon Vicente > 08/14/20 [id number]
[2020-08-14] MEDS: GASTROGRAFIN SOLUTION 30ML PO SCH ×2 (18:04→18:33)
[2020-08-14] MEDS ORDERED: ISOVUE-370 76% 100ML VIAL As Ordered ONE (19:17)
--- NOTE | 2020-08-14 20:36 | REPVR ---
PROCEDURE INFORMATION: Exam: CT Abdomen And Pelvis With Contrast Exam date and time: 08/14/2020 7:40 PM Age: 60 years old Clinical indication: Abdominal pain; Additional info: L flank pain, dark stools, HX gastric ulcer TECHNIQUE: Imaging protocol: Computed tomography of the abdomen and pelvis with contrast. Radiation optimization: All CT scans at this facility use at least one of these dose optimization techniques: automated exposure control; mA and/or kV adjustment per patient size (includes targeted exams where dose is matched to clinical indication); or iterative reconstruction. Contrast material: ISOVUE 370; Contrast volume: 100 ml; Contrast route: INTRAVENOUS (IV); COMPARISON: CT ABD PELVIS W/O CONTRAST 06/04/2020 8:24 AM FINDINGS: Lungs: Right middle lobe and right lower lobe atelectasis/consolidation, slightly more prominent. Minimal atelectasis and/or scar in the lingula, unchanged. Liver: Unremarkable. No mass. Gallbladder and bile ducts: Unremarkable. No calcified stones. No ductal dilation. Pancreas: Mildly prominent main pancreatic duct measuring up to 4-5 mm. There is a 6 mm cystic area within the uncinate (image 53, series 201) and 5 mm cystic area within the pancreas neck (image 45, series 201). Differential diagnosis includes small pseudocysts as well as side branch type intraductal papillary mucinous neoplasm. Further clinical evaluation and follow-up imaging with either MRI or endoscopic ultrasound is recommended. Spleen: Status post partial splenectomy, unchanged. Adrenal glands: Normal. No mass. Kidneys and ureters: Bilateral renal cysts. 4 mm nonobstructing stone in the left kidney midpole. No hydronephrosis. Stomach and bowel: Colonic diverticulosis without diverticulitis. No colitis. The stomach and small bowel are unremarkable. No bowel obstruction. Appendix: No evidence of appendicitis. Intraperitoneal space: Unremarkable. No free air. No significant fluid collection. Vasculature: Unremarkable. No abdominal aortic aneurysm. Lymph nodes: Unremarkable. No enlarged lymph nodes. Urinary bladder: Unremarkable as visualized. Reproductive: Unremarkable as visualized. Bones/joints: No acute fracture. Soft tissues: Unremarkable. IMPRESSION: 1. Right middle lobe and right lower lobe atelectasis/consolidation, slightly more prominent. 2. No acute abdominopelvic process. 3. Stable postoperative changes within the spleen. 4. Colonic diverticulosis. 5. Mild pancreatic duct dilatation with findings suspicious for small cystic lesions within the pancreas neck and uncinate. Differential diagnosis includes pseudocysts versus side branch type IPMN of the pancreas. Further clinical evaluation and follow-up imaging with either MRI or endoscopic ultrasound is recommended. COMMENTS: Consistent with the [place] [employer]'s Incidental Findings Committee white paper (J Am Wesley Radiol 2018): Any incidental renal lesion less than 1 cm or classified as too small to characterize, or any incidental cystic renal lesion characterized as simple-appearing, is likely benign. No follow-up imaging is recommended for these lesions per consensus recommendations based on imaging criteria. Electronically signed by: Sharan Siddiqui On 08/14/2020 20:36:20 PM
[2020-08-14] MEDS ORDERED: DICYCLOMINE 10 MG CAP PO ONE (20:55)
[2020-08-14] MEDS ORDERED: KETOROLAC 30 MG/ML 1ML VIAL IV ONE (20:55)
[2020-08-14] MEDS ORDERED: DICY10CA13 PO (20:57)
[2020-08-14 21:20] VITALS: BP 123/75
--- NOTE | 2020-08-15 09:07 | ED PDOC ---
Post-Departure Follow-Up ct abd/p faxed to dr greco for fu Jacqueline Magana MD Aug 15, 2020 09:07
== END 2020-08-14 21:28 | disposition home or self-care (01) ==
LOC: M ED 14:40
DX: R10.9 Unspecified abdominal pain (principal); J98.11 Atelectasis; R93.89 Abnormal findings on diagnostic imaging of other specified body structures; N28.1 Cyst of kidney, acquired; E78.5 Hyperlipidemia, unspecified; I10 Essential (primary) hypertension; Z86.73 Personal history of transient ischemic attack (TIA), and cerebral infarction without residual deficits; Z87.442 Personal history of urinary calculi; Z88.1 Allergy status to other antibiotic agents; Z88.2 Allergy status to sulfonamides
CPT/HCPCS: 36415; 74177; 76775; 80047; 80076; 81001; 81002; 83690; 85025; 96361; 96374; 96375; 99284; J1885; J2270; J2405; Q9963; Q9967

== ENCOUNTER → 2020-08-19 | Outpatient (REF) | payer MEDICARE ==
[~2020-08-19] MED LIST changes: +CHLO125TA; +DICY10CA13 PO; +ROSU40TA4
[2020-08-19 14:46] LABS: BASO # 0.1 10^3/uL (0.0-0.2); BASO % 0.6 % (0.0-1.0); EOS # 0.4 10^3/uL (0.0-0.5); EOS % 4.2 % (0.0-3.0); HEMATOCRIT 51.7 % (36.0-47.0); HEMOGLOBIN 16.7 g/dl (12.0-15.5); LYMPH # 3.4 10^3/uL (1.5-5.0); LYMPH % 39.9 % (24.0-44.0); MEAN CORPUSCULAR HEMOGLOBIN 31.6 pg (27.0-33.0); MEAN CORPUSCULAR HGB CONC 32.3 g/dl (32.0-36.5); MEAN CORPUSCULAR VOLUME 97.7 fl (80.0-96.0); MONO % 11.3 % (2.0-8.0); NEUTROPHILS # 3.7 10^3/uL (1.5-8.5); NEUTROPHILS % 43.8 % (36.0-66.0); PLATELET COUNT, AUTOMATED 270 10^3/uL (150-450); RED BLOOD COUNT 5.29 10^6/uL (4.00-5.40); WHITE BLOOD COUNT 8.4 10^3/uL (4.0-10.0)
== END ==
LOC: M SFHCPLAZ 11:08
PROVIDERS: ATTEND Physician Assistant Medical
DX: K86.2 Cyst of pancreas (principal); K27.9 Peptic ulcer, site unspecified, unspecified as acute or chronic, without hemorrhage or perforation
CPT/HCPCS: 36415; 85025; 86301; G0463

== ENCOUNTER → 2020-08-21 | Outpatient (CLI) | payer MEDICARE ==
--- NOTE | 2020-08-21 16:19 | REP ---
INDICATION: PANCREATIC CYST. COMPARISON: CT 08/14/2020.. TECHNIQUE: Multiple T1, T2 and heavily T2 weighted sequences are obtained in the axial and coronal planes. 3D MIP reconstruction images are performed. FINDINGS: There is no intrahepatic or extrahepatic biliary dilatation. There is no gross biliary stricture and no focal dilatation. Common bile duct has a maximum diameter of approximately 5 mm. Pancreatic duct is normal in caliber. No pancreatic cyst is visualized. Gallbladder is mildly distended with no wall thickening or edema. No internal filling defect or gallstone is seen. There is no evidence of choledocholithiasis. The visualized liver, spleen, adrenals, and pancreas are grossly unremarkable. Bilateral renal cysts are again noted, as seen on the CT exam. I see no adenopathy or free fluid in the abdomen. IMPRESSION: No evidence of pancreatic cyst. <Electronically signed by Solomon Hubbard > 08/21/20 [id number]
== END ==
LOC: M RAD 14:29
PROVIDERS: ATTEND Physician Assistant Medical
DX: K86.2 Cyst of pancreas (principal)

== ENCOUNTER → 2020-11-11 | Outpatient (CLI) | payer MEDICARE ==
[~2020-11-11] MED LIST changes: -DOXY100C37 PO; +DOXY1CAP62 PO; +HYDR-3713 PO; +NORT25CA2; +OMEP40CA4 PO; -OMEP40CA97 PO; -OXYC1TAB15 PO; +OXYC7.5T3 PO; +TRAZ-257
--- NOTE | 2020-11-11 14:20 | REP ---
INDICATION: RT CALF PAIN/CRAMPING, R/O DVT COMPARISON: None. TECHNIQUE: Hubbard scale and color Doppler evaluation using linear high frequency transducer. FINDINGS: Ultrasound examination of the right lower extremity deep venous structures from the common femoral vein through the calf/ankle to include the peroneal, and tibial veins demonstrates normal compressibility flow and wave patterns in response to respiration and augmentation. There is no evidence for deep venous thrombosis. Contralateral CFV is patent and normal. IMPRESSION: No evidence for deep venous thrombosis. <Electronically signed by Pedro Langley > 11/11/20 [id number]
== END ==
LOC: M RAD 13:39
PROVIDERS: ATTEND Physician Assistant
DX: M79.661 Pain in right lower leg (principal)
CPT/HCPCS: 93971; G0463

== ENCOUNTER → 2020-11-18 | Outpatient (REF) | payer MEDICARE ==
[~2020-11-18] MED LIST changes: -HYDR-3713 PO; -NORT25CA2; -TRAZ-257
[2020-11-18 13:41] LABS: APPEARANCE, URINE CLEAR (CLEAR); BACTERIA, URINE AUTO NEGATIVE (NEGATIVE); BILIRUBIN, URINE AUTO NEGATIVE (NEGATIVE); BLOOD, URINE BLOOD 1+ (NEGATIVE); COLOR, URINE YELLOW (YELLOW); GLUCOSE, URINE (UA) AUTO NEGATIVE (NEGATIVE); KETONE, URINE AUTO NEGATIVE (NEGATIVE); LEUKOCYTE ESTERASE, URINE AUTO NEGATIVE (NEGATIVE); NITRITE, URINE AUTO NEGATIVE (NEGATIVE); PROTEIN, URINE AUTO NEGATIVE (NEGATIVE); RBC, URINE AUTO 2 /HPF (0-3); SPECIFIC GRAVITY URINE AUTO 1.014 (1.002-1.035); SQUAMOUS EPITHELIAL CELL UR AU 0 /HPF (0-6); UROBILINOGEN, URINE AUTO 0.2 mg/dL (0.0-2.0); WBC, URINE AUTO 0 /HPF (0-3)
[2020-11-18 13:42] LABS: BASO % 0.6 % (0.0-1.0); EOS # 0.3 10^3/uL (0.0-0.5); EOS % 4.5 % (0.0-3.0); HEMATOCRIT 51.4 % (36.0-47.0); HEMOGLOBIN 16.5 g/dl (12.0-15.5); LYMPH # 2.7 10^3/uL (1.5-5.0); MEAN CORPUSCULAR HEMOGLOBIN 31.3 pg (27.0-33.0); MEAN CORPUSCULAR HGB CONC 32.1 g/dl (32.0-36.5); MEAN CORPUSCULAR VOLUME 97.5 fl (80.0-96.0); MONO # 0.8 10^3/uL (0.0-0.8); MONO % 11.3 % (2.0-8.0); NEUTROPHILS # 3.2 10^3/uL (1.5-8.5); NEUTROPHILS % 45.2 % (36.0-66.0); PLATELET COUNT, AUTOMATED 259 10^3/uL (150-450); RED BLOOD COUNT 5.27 10^6/uL (4.00-5.40); WHITE BLOOD COUNT 7.1 10^3/uL (4.0-10.0)
[2020-11-18 13:52] LABS: HEMATOCRIT 51.4 % (36.0-47.0)
[2020-11-18 14:19] LABS: ALBUMIN 3.7 GM/DL (3.2-5.2); ALT/SGPT 24 U/L (12-78); BILIRUBIN,TOTAL 0.3 MG/DL (0.2-1.0); BLOOD UREA NITROGEN 15 MG/DL (7-18); CALCIUM LEVEL 9.7 MG/DL (8.8-10.2); CARBON DIOXIDE LEVEL 28 MEQ/L (21-32); CHLORIDE LEVEL 107 MEQ/L (98-107); CHOLESTEROL LEVEL 199 MG/DL (<200); CHOLESTEROL RISK RATIO 2.551 (<5); CREATININE FOR GFR 0.87 MG/DL (0.55-1.30); FREE T4 0.89 NG/DL (0.76-1.46); GLOMERULAR FILTRATION RATE > 60.0 (>45); GLUCOSE, FASTING 106 MG/DL (70-100); HDL CHOLESTEROL 78 MG/DL (>40); LDL CHOLESTEROL 102 MG/DL (<100); NON-HDL-C 121 MG/DL; NT-PRO BNP 65 PG/ML (<125); POTASSIUM SERUM 4.1 MEQ/L (3.5-5.1); SODIUM LEVEL 142 MEQ/L (136-145); TOTAL PROTEIN 7.2 GM/DL (6.4-8.2); TRIGLYCERIDES LEVEL 97 MG/DL (<150)
[2020-11-18 14:40] LABS: HEMOGLOBIN A1c 5.9 %
== END ==
LOC: M SFHCADAM 08:57
PROVIDERS: ATTEND Nurse Practitioner Family
DX: E78.5 Hyperlipidemia, unspecified (principal); I77.810 Thoracic aortic ectasia; I10 Essential (primary) hypertension; E53.8 Deficiency of other specified B group vitamins; E03.9 Hypothyroidism, unspecified; R73.01 Impaired fasting glucose; R35.0 Frequency of micturition

== ENCOUNTER 2020-11-27 13:37 | Emergency (ER) | payer MEDICARE ==
[~2020-11-27] VITALS: Ht 172.7 cm; Wt 100.0 kg
[2020-11-27] MEDS ORDERED: TRAZ-257 (14:22)
[2020-11-27] MEDS ORDERED: NORT25CA2 (14:22)
[2020-11-27] MEDS ORDERED: NS 500 ML IV ONE (14:40)
[2020-11-27] MEDS ORDERED: dexameTHASONE 20MG/5ML VIAL (J1100 PER 1MG) IV ONE (14:40)
[2020-11-27] MEDS ORDERED: METOCLOPRAMIDE INJ 10MG/2ML VIAL (J2765 PER 1) IV ONE (14:40)
[2020-11-27 14:49] LABS: BASO # 0.1 10^3/uL (0.0-0.2); BASO % 0.7 % (0.0-1.0); EOS # 0.2 10^3/uL (0.0-0.5); EOS % 2.7 % (0.0-3.0); HEMATOCRIT 49.4 % (36.0-47.0); HEMOGLOBIN 16.5 g/dl (12.0-15.5); LYMPH # 2.8 10^3/uL (1.5-5.0); LYMPH % 32.3 % (24.0-44.0); MEAN CORPUSCULAR HGB CONC 33.4 g/dl (32.0-36.5); MEAN CORPUSCULAR VOLUME 95.7 fl (80.0-96.0); MONO # 1.1 10^3/uL (0.0-0.8); NEUTROPHILS # 4.4 10^3/uL (1.5-8.5); PLATELET COUNT, AUTOMATED 261 10^3/uL (150-450); RED BLOOD COUNT 5.16 10^6/uL (4.00-5.40); WHITE BLOOD COUNT 8.6 10^3/uL (4.0-10.0)
[2020-11-27 15:14] LABS: BLOOD UREA NITROGEN 11 MG/DL (7-18); CALCIUM LEVEL 9.3 MG/DL (8.8-10.2); CARBON DIOXIDE LEVEL 27 MEQ/L (21-32); CHLORIDE LEVEL 110 MEQ/L (98-107); CREATININE FOR GFR 0.82 MG/DL (0.55-1.30); GLOMERULAR FILTRATION RATE > 60.0 (>45); GLUCOSE, FASTING 90 MG/DL (70-100); MAGNESIUM LEVEL 2.3 MG/DL (1.8-2.4); POTASSIUM SERUM 4.4 MEQ/L (3.5-5.1); SODIUM LEVEL 143 MEQ/L (136-145)
--- NOTE | 2020-11-27 15:25 | REPVR ---
PROCEDURE INFORMATION: Exam: CT Head Without Contrast Exam date and time: 11/27/2020 2:33 PM Age: 60 years old Clinical indication: Other: Severe headache TECHNIQUE: Imaging protocol: Computed tomography of the head without contrast. Radiation optimization: All CT scans at this facility use at least one of these dose optimization techniques: automated exposure control; mA and/or kV adjustment per patient size (includes targeted exams where dose is matched to clinical indication); or iterative reconstruction. COMPARISON: MRI-Brain without Contrast 06/23/2020 10:27 AM FINDINGS: Brain: The brain demonstrates moderate diffuse volume loss. There is white matter hypodensity most consistent with chronic small vessel ischemic change. No visible evolving territorial infarct. No hemorrhage. Cerebral ventricles: The ventricles are enlarged in keeping with volume loss. Paranasal sinuses: Visualized sinuses are unremarkable. No fluid levels. Mastoid air cells: Visualized mastoid air cells are well aerated. Bones/joints: Unremarkable. No acute fracture. Soft tissues: Unremarkable. IMPRESSION: No acute intracranial abnormality seen. Electronically signed by: Kaur Oreilly On 11/27/2020 15:25:04 PM
[2020-11-27] MEDS ORDERED: KETAMINE HCL 20 MG in NS 50 ML IV ONE (19:00)
[2020-11-27] MEDS ORDERED: MAG SULF 1GM/100ML (MAG RUN) 1 GM in IV 1 EA IV ONE (19:20)
[2020-11-27] MEDS ORDERED: PERCOCET 5MG/325MG TAB PO ONE (19:35)
[2020-11-27] MEDS ORDERED: VALPROATE SOD INJ 1,000 MG in D5W 50 ML IV ONE (19:40)
[2020-11-27] MEDS ORDERED: NORCO 5/325MG TABLET (BULK FOR ED) PO ONE ×2 (21:50→22:00)
[2020-11-27] MEDS ORDERED: HYDR-3713 PO (22:02)
[2020-11-27 22:30] VITALS: BP 131/86
== END 2020-11-27 22:32 | disposition home or self-care (01) ==
LOC: M ED 13:37
DX: R51.9 Headache, unspecified (principal); I50.9 Heart failure, unspecified; I10 Essential (primary) hypertension; E78.5 Hyperlipidemia, unspecified; G47.33 Obstructive sleep apnea (adult) (pediatric); Z87.442 Personal history of urinary calculi; F17.200 Nicotine dependence, unspecified, uncomplicated; Z79.899 Other long term (current) drug therapy; Z88.2 Allergy status to sulfonamides; Z88.8 Allergy status to other drugs, medicaments and biological substances
CPT/HCPCS: 70450; 80048; 83735; 85025; 93041; 96361; 96365; 96367; 96375; 99285; J1100; J2765; J3475

== ENCOUNTER → 2020-12-27 | Outpatient (REF) | payer MEDICARE ==
[~2020-12-27] MED LIST changes: +HYDR-3713 PO; +NORT25CA2; +TRAZ-257
[2020-12-27 18:07] LABS: APPEARANCE, URINE CLEAR (CLEAR); BACTERIA, URINE AUTO NEGATIVE (NEGATIVE); BILIRUBIN, URINE AUTO NEGATIVE (NEGATIVE); BLOOD, URINE BLOOD NEGATIVE (NEGATIVE); COLOR, URINE STRAW (YELLOW); GLUCOSE, URINE (UA) AUTO NEGATIVE (NEGATIVE); KETONE, URINE AUTO NEGATIVE (NEGATIVE); LEUKOCYTE ESTERASE, URINE AUTO NEGATIVE (NEGATIVE); NITRITE, URINE AUTO NEGATIVE (NEGATIVE); PROTEIN, URINE AUTO NEGATIVE (NEGATIVE); RBC, URINE AUTO 0 /HPF (0-3); SPECIFIC GRAVITY URINE AUTO 1.006 (1.002-1.035); SQUAMOUS EPITHELIAL CELL UR AU 0 /HPF (0-6); UROBILINOGEN, URINE AUTO 0.2 mg/dL (0.0-2.0); WBC, URINE AUTO 0 /HPF (0-3)
== END ==
LOC: M LAB REF 17:36
PROVIDERS: ATTEND Physician Assistant
DX: N39.0 Urinary tract infection, site not specified (principal)

== ENCOUNTER → 2021-03-12 | Outpatient (CLI) | payer MEDICARE ==
[~2021-03-12] MED LIST changes: +DOXY-443 PO; -DOXY1CAP62 PO
--- NOTE | 2021-03-12 15:27 | REP ---
INDICATION: LUNG CA SCREENING. COMPARISON: Multiple the latest 05/12/[address] angio chest TECHNIQUE: Axial noncontrast images from the thoracic inlet to the upper abdomen using low-dose lung screening technique (LDCT). As per the protocol only lung window images were sent to the read station for interpretation. FINDINGS: No new abnormal nodules, masses, or opacities have developed. The lung melo are stable. Grossly, the mediastinum and pulmonary husam are unchanged. Grossly, the imaged upper abdomen and imaged osseous structures are unchanged. IMPRESSION: Lung rads category 2 low-dose screening CT examination of the lungs. No new abnormal nodules. Follow-up in 1 year as per the revised Fleischner society criteria <Electronically signed by Can Lopez > 03/12/21 [id number]
== END ==
LOC: M RAD 13:51
PROVIDERS: ATTEND Family Medicine
DX: Z12.2 Encounter for screening for malignant neoplasm of respiratory organs (principal); Z87.891 Personal history of nicotine dependence

== ENCOUNTER 2021-04-18 13:21 | Emergency (ER) | payer MEDICARE ==
[~2021-04-18] VITALS: Ht 172.7 cm; Wt 98.7 kg
[~2021-04-18 13:21] MED LIST changes: -CHLO125TA
--- OUTSIDE RECORDS SUMMARY | 2021-04-18 13:32 | CCD ---
Author Author [facility] Organization [facility] Address Unknown Phone Unavailable Care Team Providers Care Lead Mechanic Name Role Phone Case Monet Unavailable PROBLEMS ALLERGIES ENCOUNTERS from 1960 to 2021-03-30 IMMUNIZATIONS SOCIAL HISTORY REASON FOR REFERRAL No Information VITAL SIGNS MEDICATIONS PROCEDURES No Information RESULTS No Results REASON FOR VISIT MEDICAL (GENERAL) HISTORY Goals Section Health Concerns MEDICAL EQUIPMENT No Information MENTAL STATUS FUNCTIONAL STATUS ASSESSMENTS No Information PLAN OF TREATMENT Insurance Providers
--- OUTSIDE RECORDS SUMMARY | 2021-04-18 13:32 | CCD ---
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 Active confirmed 94752368 Problem Hyperlipidemia E78.5 Active confirmed 50400 004 Problem Hypothyroidism, unspecified E03.9 Active confirmed 61266036 Problem Osteoarthritis of both knees M17.0 Active confirme d 190452386 Problem IFG (impaired fasting glucose) R73.01 Active confir med 464412062 Problem Obesity E66.9 Active confirmed 112612784 Problem Nephrolithiasis N20.0 Active confirmed 9557 0007 Problem Osteoarthritis of spine with radiculopathy, thoracic regio n M47.24 Active confirmed 6948059 Problem Depression F32.9 Active confirmed 63578652 Problem 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 Active confirmed 161 664538 Problem PUD (peptic ulcer disease) K27.9 Active confirmed 94573817 Problem Essential (primary) hypertension I10 Active conf irmed 96049115 Problem Gastro-esophageal reflux disease without esophagitis K21.9 Active confirmed 796134083 Problem TIA (transient ischemic attack) G45.9 Active confi rmed 095757330 Problem JORDAN (obstructive sleep apnea) G47.33 Active confirm ed 50854124 Problem Herpes gingivostomatitis B00.2 Active confirmed 80933457 Problem Folic acid deficiency E53.8 Active confirmed 061492696 Problem Aortic root dilatation I77.810 Active confirmed 139675132 Problem Spondylosis of thoracic region without myelopath y or radiculopathy M47.814 Active confirmed 065207855 Problem Macrocytosis D75.89 Active confirmed 8753726 00 Problem Hx of colonic polyp Z86.010 Active confirmed 645297357 Problem Non-seasonal allergic rhinitis, unspecified trigger J30.89 Active confirmed 53742449 Problem Cervical spondylosis M47.812 Active confirmed 140292040 Problem Cervical cancer screening Z12.4 Active confirmed 677285154 Problem Anxiety F41.9 Active confirmed 61428093 Problem Insomnia G47.00 Active confirmed 444224330 Problem Other chronic pain G89.29 Active confirmed 8 9678571 Problem Breast cancer screening Z12.39 Active confirmed 458009461 Problem Migraine headache G43.909 Active confirmed 3 3213809 Problem Renal cyst N28.1 Active confirmed 935727521 Problem Chronic pain syndrome G89.4 Active confirmed 752269330 Problem Encounter for screening for lung cancer Z12.2 Active confirmed 673469974 Problem Burning sensation of vulva N94.89 Active confirmed 832034394 ALLERGIES Allergen (clinical drug ingredient) Drug/Non Drug Allergy do cumented on EMR Reaction Allergy Type Onset Date Status Sulfasalazine Sulfa Antibiotics Anaphylaxis Drug Allergy A ctive atorvastatin Lipitor(ND Code:[address]-48) lips tingle/numbness D rug Allergy Active tizanidine Tizanidine HCl(ND Code:[address]-44) Rash Drug All ergy Active IV dye allergic per pt Non Drug Allergy Act aalna Talwin Rash Drug Allergy Active Statins (for Allergy Use Only) face numb/ tingles Drug All ergy Active ENCOUNTERS from 1960 to 2021-04-02 Encounter Location Date Provider Diagnosis [place] [id number] [place] [address] 17 Mar, 2021 Krysten Rock IMMUNIZATIONS Vaccine Route Administration Date Status Meningococcal 0.5mL Menveo Groups A,C,Y & W-135 IM Intramuscular Jun 29, 2018 Administered Pneumococcal Adult 0.5mL Pneumovax 23 IM Intramuscular Jun 29, 2 019 Administered Influenza 6mo & up Fluzone IM Intramuscular Apr 15, 2016 Admi nistered Pneumococcal 0.5mL Prevnar 13 IM Intramuscular Jun 18, 2013 A dministered Influenza 6mo & up Fluzone IM Intramuscular Mar 24, 2017 Admi nistered Influenza 6mo & up Fluzone IM Intramuscular Mar 10, 2015 Admi nistered Influenza 6mo & up Fluzone IM Intramuscular Apr 09, 2013 Admi nistered Influenza 6mo & up Fluzone IM Intramuscular Feb 04, 2011 Admi nistered Influenza 6mo & up Fluzone IM Intramuscular Feb 19, 2010 Admi nistered SOCIAL HISTORY Tobacco Use: Social History Observation Description Date Details (start date - stop date) Former Smoker Sex Assigned At : Social History Observation Description Sex Assigned At Unknown Education: Question Answer Notes Level of Education: High School Audit Question Answer Notes Total Score: 0 Interpretation: Alcohol Education Language: Question Answer Notes Languages spoken: Bulgarian Pentecostalism: Question Answer Notes Pentec[employer]ism 24 [employer] Sexual Hx: Question Answer Notes Had sex in the last 12 months (vaginal, oral, or anal)? No Have you ever had an STD? No Drug and Alcohol Question Answer Notes Total Score: 0 Interpretation: No problems reported Alcohol Screening: Question Answer Notes Did you have a drink containing alcohol in the past year? No Points 0 Interpretation Negative BMI Care Goal Follow-Up Question Answer Notes Above Normal BMI Follow-Up Giving encouragement to exercise Tobacco Use: Question Answer Notes Are you a: former smoker smoked 1 pack a day for 30 years and quit 4years ago Additional Findings: Tobacco Non-User Current non-smoker How long has it been since you last smoked? 1-5 years REASON FOR REFERRAL No Information VITAL SIGNS No information MEDICATIONS Medication SIG (Take, Route, Frequency, Duration) Notes Start Da te End Date Status Liraglutide 18 MG/3ML 0.6 Subcutaneous daily for 30 Days 0 7 Feb, 2021 Active Levothyroxine Sodium 25 MCG 1 tablet Orally Once a day Active Clopidogrel Bisulfate 75 MG TAKE ONE TABLET BY MOUTH E VERY DAY Orally once daily for 90 day(s) Active Telmisartan 20 MG 1 tablet Orally bid for 90 day(s) Active diazePAM 10 MG 1/2 tablet Orally at bedtime Active Albuterol Sulfate (2.5 MG/3ML) 0.083% 3 ml as needed I nhalation every 6 hrs as needed Apr, Active Butrans 10 MCG/HR 1 patch to skin Transdermal every 7 days for 3 0 Days Mar, Active Belbuca 75 MCG 1 film to the gum Bucally Once a day for 30 Days Mar, Active Clopidogrel Bisulfate 75 MG TAKE ONE TABLET BY MOUTH E VERY DAY Orally once daily for 30 days Active Zofran 4 MG 1 tab Orally bid prn nausea for 30 day(s) Active traMADol HCl 50 MG 1 tablet as needed Orally Once a day for 30 D ays Mar, Active traZODone HCl 100 MG 1 tab Orally at bedtime Active Rosuvastatin Calcium 20 MG 1 tablet Orally Once a day for 90 day(s) Active Nebulizer/Tubing/Mouthpiece - as directed topically ev cirilo 6 hours as needed for 30 Days Apr, Active Diclofenac Sodium 1 % 4 gm Transdermal qid to B knees for 30 days Active Olopatadine HCl 0.1 % 1 drop into affected eye Oph thalmic Twice a day for 30 day(s) Active Carafate 1 GM 1 tablet on an empty stomach Orally Twice a day for 3 0 day(s) Active Carvedilol 12.5 MG 1 tab Orally Twice a day for 90 day(s) Active Lidocaine 5 % 1 application to affected ar ea as needed Externally Three times a day for 30 days Active Pantoprazole Sodium 40 MG 1 tablet Orally bid for 30 days Active Valtrex 500 MG 2 tablets Orally BID x 1 day with flare for 1 dose(s) Active Folic Acid 2 MG 1 tablet Orally daily Active Gabapentin 100 MG 1 capsule Orally tid for 30 day(s) Active [place] Nasal [place] 0.65 % 2 sprays in each nostril as needed Nasally TID for 30 Days Jun, Active Tums Ultra 1000 1000 MG 1 tablet Orally Once a day p rn LAXMI symptoms for 30 day(s) Active Nebulizer - as directed orally Daily for 999 days Apr, Active Vitamin D 2000 UNIT 1 tablet Orally daily for 90 day(s) Active Cyclobenzaprine HCl 10 MG 1 tablet as needed Orally Three times a day for 30 Active Nasacort Allergy 24HR 55 MCG/ACT 1 puff in each nostril Nasally Onc e a day Active Montelukast Sodium 10 MG 1 tablet Orally at bedtime for 30 days Active Lansoprazole 30 MG 1 capsule before a meal Orally bid for 30 day (s) Aug, Active PROCEDURES No Information RESULTS No Results REASON FOR VISIT clarification. MEDICAL (GENERAL) HISTORY Type Description Date Medical History history of nonsustained asym ptomatic ventricular tachycardia- 09/2012 RST low risk-Antecol Medical History nicotine addiction-1PPD from [age]Y, 07/2011 FEV1 3.0L (104%)/ratio 98% Medical History MDD/NGUYỄN/PTSD/chronic insomnia-follows wi th Dr. Gallego Medical History hyperlipidemia 2B Medical History dyspepsia-small hiatal herni a, moderate chronic gastritis/small gastric ulcer, - H pylori by 08/2014 EGD-W02/09/16 EGD-small HH, esophagela biopsy s metaplasia/eosinophil and lympocyte infiltrtrate Medical History history of splenectomy Medical History impaired fasting glucose Medical History constipation, chronic Medical History history of bilateral nephrol ithiasis-status post right laser lithotripsy and stone extraction for distal ureteral stone August 2008-Yoel Medical History menorrhagia Medical History cervical/thoracic spondylosi s-mild mutli-level thoraic DJD c T8- 12 bulges, moderate T7/8 HNP c mild CCS by 03/2015 MRI similar to 10/2009 Medical History herpes gingivostomatitis, recurrent Medical History adenomatous polyp by colonos copy October 2006-Betty normal colonoscopy-W medium tubular adenoma-W Medical History obstructive sleep apnea-Febr uary 2010 NPSG with RDI of Medical History palpitations-July 2010- d ay event monitor with symptoms correlating with isolated PVCs-Zheng Medical History migraine headache, common ty pe-09/2011 normal MRA brain/B carotid US/MRI c several T2 punctate hyperintensity subcortical L frontal lobe probably 2 previous repetitative head trauma Medical History UTI, E coli pansensitive 01/2013 s/p rece nt intercourse Medical History h/o ampehtamine abuse x ~1Y c secondary imprisonment/h/o heavy EthOH abuse [age] yo/h/o THC abuse [age]yo/h/o intermittent cocaine use ~10Y Medical History congential R foot equinovarus Medical History hypothyroidism, 12/2014 TPO Ab 41 (< 60) Medical History JORDAN-06/2009 NPSG c RDI 48-Vrwyhn-elpqyzt could not tolerate CPAP Medical History hypertension-09/2015 moderate severe concentric LVH, LVEF 65%, grade 1 diastolic dysfunction, mild AR dilitation by 09/2015 TTE Antecol Medical History 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, HLA-B27, CRP < 0.31, Shari 1:80 speckled-father, sister c /Crohn's Medical History allergic rhinitis/conjunctivitis-symptom atic to dogs Medical History B knee OA-12/2016 MRI R knee: trizonal lateral meniscal tearing, grade IV lateral PFCM, low volume pop cyst by 12/29/16 MRI [facility] Surgical History colonoscopy/EGD-hiatal herni a, internal hemorrhoids, nieto diverticulosis-Betty June 2009 Surgical History splenectomy 1979 Surgical History ESWL 2005 Surgical History cystoscopy-Karina Recore 09/30 Hospitalization History L facial droop/numbness/dysa rthria-new onset lasting x 1D-normal MRI/MRA brain 01/30- Hospitalization History L facial droop/numbness/dysa rthria/UE, LE weakness- received tpa in ED, [facility] 8, felt by Dr. Anderson c/w TIA, asprin 81 changed to Plavix, normal MRI/MRA brain, MRA carotids 10/12-10/15/2015 Hospitalization History [facility] ED-Flank pain, kidney stone /07/2018 Hospitalization History [facility] encephalopathy-UDS + wilmer zo only, trazadone/diazepam dose reduced by 1/2, Butrans dced and carve 12 BID to 6 BID- MRI/MRA brain, CT AP, CXR NAD 03/06-03/07/20 Hospitalization History R headache/facial numbness ( s weakness)-MRI brain , CTA head/neck, CXR WNL, stable CBC/CMP/T-I-per px, dx c Hahn's palsy and sinusitis and dced on pred taper/doxy 06/22-12/2020 Goals Section No Information Health Concerns No Information MEDICAL EQUIPMENT No Information MENTAL STATUS No Information FUNCTIONAL STATUS No Information ASSESSMENTS No Information PLAN OF TREATMENT Medication Medication Name Sig Start Date Stop Date Nasacort Allergy 24HR 55 MCG/ACT 1 puff in each nostril Nasally Once a day Montelukast Sodium 10 MG 1 tablet Orally at bedtime for 30 days Lidocaine 5 % 1 application to affected ar ea as needed Externally Three times a day for 30 days Olopatadine HCl 0.1 % 1 drop into affected eye Oph thalmic Twice a day for 30 day(s) Liraglutide 18 MG/3ML 0.6 Subcutaneous daily for 30 Days Feb, Levothyroxine Sodium 25 MCG 1 tablet Orally Once a day Clopidogrel Bisulfate 75 MG TAKE ONE TABLET BY MOUTH E VERY DAY Orally once daily for 90 day(s) Telmisartan 20 MG 1 tablet Orally bid for 90 day(s) traZODone HCl 100 MG 1 tab Orally at bedtime Butrans 10 MCG/HR 1 patch to skin Transdermal every 7 days for 30 Days Mar, Pantoprazole Sodium 40 MG 1 tablet Orally bid for 30 days Diclofenac Sodium 1 % 4 gm Transdermal qid to B knees for 30 day s Zofran 4 MG 1 tab Orally bid prn nausea for 30 day(s) Tums Ultra 1000 1000 MG 1 tablet Orally Once a day p rn LAXMI symptoms for 30 day(s) Carafate 1 GM 1 tablet on an empty stomach Orally Twice a day for 30 day(s) Belbuca 75 MCG 1 film to the gum Bucally Once a day for 30 Days Mar, Gabapentin 100 MG 1 capsule Orally tid for 30 day(s) Rosuvastatin Calcium 20 MG 1 tablet Orally Once a day for 90 day (s) Valtrex 500 MG 2 tablets Orally BID x 1 day with flare for 1 do se(s) traMADol HCl 50 MG 1 tablet as needed Orally Once a day for 30 Days Mar, diazePAM 10 MG 1/2 tablet Orally at bedtime Folic Acid 2 MG 1 tablet Orally daily Carvedilol 12.5 MG 1 tab Orally Twice a day for 90 day(s) Next Appt Details Provider Name:Case Monet, 2021-06-25 1 1:45:00 AM, [address] [facility], , [place], [address], Insurance Providers Payer Name Payer Address Payer Phone Insured Name Patient Relati onship to Insured Coverage Start Date Coverage End Date MEDICARE COMPLETE [facility] [address] [address] [facility] [phone] LIDIA AGUIRRE self
--- OUTSIDE RECORDS SUMMARY | 2021-04-18 13:32 | CCD ---
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 Active confirmed 71352678 Problem Hyperlipidemia E78.5 Active confirmed 37386 004 Problem Hypothyroidism, unspecified E03.9 Active confirmed 63479491 Problem Osteoarthritis of both knees M17.0 Active confirme d 084569953 Problem IFG (impaired fasting glucose) R73.01 Active confir med 069277738 Problem Obesity E66.9 Active confirmed 006725609 Problem Nephrolithiasis N20.0 Active confirmed 9557 0007 Problem Osteoarthritis of spine with radiculopathy, thoracic regio n M47.24 Active confirmed 7612008 Problem Depression F32.9 Active confirmed 15774790 Problem 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 Active confirmed 161 390468 Problem PUD (peptic ulcer disease) K27.9 Active confirmed 71450799 Problem Essential (primary) hypertension I10 Active conf irmed 25766189 Problem Gastro-esophageal reflux disease without esophagitis K21.9 Active confirmed 678592707 Problem TIA (transient ischemic attack) G45.9 Active confi rmed 240228188 Problem JORDAN (obstructive sleep apnea) G47.33 Active confirm ed 73412741 Problem Herpes gingivostomatitis B00.2 Active confirmed 77324535 Problem Folic acid deficiency E53.8 Active confirmed 603093363 Problem Aortic root dilatation I77.810 Active confirmed 435256115 Problem Spondylosis of thoracic region without myelopath y or radiculopathy M47.814 Active confirmed 184705077 Problem Macrocytosis D75.89 Active confirmed 3161373 00 Problem Hx of colonic polyp Z86.010 Active confirmed 558572232 Problem Non-seasonal allergic rhinitis, unspecified trigger J30.89 Active confirmed 68794991 Problem Cervical spondylosis M47.812 Active confirmed 741336782 Problem Cervical cancer screening Z12.4 Active confirmed 798415866 Problem Anxiety F41.9 Active confirmed 74876595 Problem Insomnia G47.00 Active confirmed 906287108 Problem Other chronic pain G89.29 Active confirmed 8 3658532 Problem Breast cancer screening Z12.39 Active confirmed 981439062 Problem Migraine headache G43.909 Active confirmed 3 8978728 Problem Renal cyst N28.1 Active confirmed 540335039 Problem Chronic pain syndrome G89.4 Active confirmed 587572036 Problem Encounter for screening for lung cancer Z12.2 Active confirmed 811061965 Problem Burning sensation of vulva N94.89 Active confirmed 561394113 ALLERGIES Allergen (clinical drug ingredient) Drug/Non Drug Allergy do cumented on EMR Reaction Allergy Type Onset Date Status Sulfasalazine Sulfa Antibiotics Anaphylaxis Drug Allergy A ctive atorvastatin Lipitor([facility] Code:[address]-83) lips tingle/numbness D rug Allergy Active tizanidine Tizanidine HCl(ND Code:[address]-41) Rash Drug All ergy Active IV dye allergic per pt Non Drug Allergy Act alana Talwin Rash Drug Allergy Active Statins (for Allergy Use Only) face numb/ tingles Drug All ergy Active ENCOUNTERS from 1960 to 2021-04-02 Encounter Location Date Provider Diagnosis [address] [place] [address] Mar, 2021 Case Monet IMMUNIZATIONS Vaccine Route Administration Date Status Meningococcal 0.5mL Menveo Groups A,C,Y & W-135 IM Intramuscular Jun 29, 2018 Administered Pneumococcal Adult 0.5mL Pneumovax 23 IM Intramuscular Jun 29, 019 Administered Influenza 6mo & up Fluzone [...] Education Language: Question Answer Notes Languages spoken: Sami Tenriism: Question Answer Notes Tenriism 24 Orthodox Sexual Hx: Question Answer Notes Had sex [...] capsule Orally tid for 30 day(s) Active [place] Nasal [place] 0.65 % 2 sprays in each nostril [...] Information RESULTS No Results REASON FOR VISIT clarification MEDICAL (GENERAL) HISTORY Type Description Date Medical History history of nonsustained asym ptomatic ventricular tachycardia- 09/2012 RST low risk-Antecol Medical History nicotine addiction-1PPD from [age]Y, 07/2011 FEV1 3.0L (104%)/ratio 98% Medical History MDD/NGUYỄN/PTSD/chronic insomnia-follows wi Dr. Gallego Medical History hyperlipidemia 2B Medical [...] History adenomatous polyp by colonos copy October 2006-Betty/ normal colonoscopy-W medium tubular adenoma-W Medical History [...] 60) Medical History JORDAN-06/2009 NPSG c RDI 91-Qrmfcy-svbzvjk could not tolerate CPAP Medical History hypertension-09/2015 [...] MRI/MRA brain, MRA carotids 10/12-10/15/2015 Hospitalization History [facility] ED-Flank pain, kidney stone /07/2018 Hospitalization History [facility] encephalopathy-UDS + wilmer zo only, trazadone/diazepam dose [...] 90 day(s) Next Appt Details Provider Name:Case Huey Chiki, 2021-06-25 1 1:45:00 AM, [address] [facility], , [place], [address], Insurance Providers Payer Name Payer Address Payer Phone Insured Name Patient Relati onship to Insured Coverage Start Date Coverage End Date MEDICARE COMPLETE [facility] [address] [address] [facility] [id number] LIDIA AGUIRRE self
--- OUTSIDE RECORDS SUMMARY | 2021-04-18 13:32 | CCD ---
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 Active confirmed 64672079 Problem Hyperlipidemia E78.5 Active confirmed 89967 004 Problem Hypothyroidism, unspecified E03.9 Active confirmed 72386431 Problem Osteoarthritis of both knees M17.0 Active confirme d 100050257 Problem IFG (impaired fasting glucose) R73.01 Active confir med 634304438 Problem Obesity E66.9 Active confirmed 383096954 Problem Nephrolithiasis N20.0 Active confirmed 9557 0007 Problem Osteoarthritis of spine with radiculopathy, thoracic regio n M47.24 Active confirmed 3904039 Problem Depression F32.9 Active confirmed 98021793 Problem 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 Active confirmed 161 524633 Problem PUD (peptic ulcer disease) K27.9 Active confirmed 14305569 Problem Essential (primary) hypertension I10 Active conf irmed 18476742 Problem Gastro-esophageal reflux disease without esophagitis K21.9 Active confirmed 065946357 Problem TIA (transient ischemic attack) G45.9 Active confi rmed 413669713 Problem JORDAN (obstructive sleep apnea) G47.33 Active confirm ed 86635934 Problem Herpes gingivostomatitis B00.2 Active confirmed 58223105 Problem Folic acid deficiency E53.8 Active confirmed 774011148 Problem Aortic root dilatation I77.810 Active confirmed 869191322 Problem Spondylosis of thoracic region without myelopath y or radiculopathy M47.814 Active confirmed 505114776 Problem Macrocytosis D75.89 Active confirmed 2905162 00 Problem Hx of colonic polyp Z86.010 Active confirmed 658218419 Problem Non-seasonal allergic rhinitis, unspecified trigger J30.89 Active confirmed 15351202 Problem Cervical spondylosis M47.812 Active confirmed 248182815 Problem Cervical cancer screening Z12.4 Active confirmed 692524434 Problem Anxiety F41.9 Active confirmed 86455896 Problem Insomnia G47.00 Active confirmed 873234336 Problem Other chronic pain G89.29 Active confirmed 8 7203174 Problem Breast cancer screening Z12.39 Active confirmed 554251485 Problem Migraine headache G43.909 Active confirmed 3 0190538 Problem Renal cyst N28.1 Active confirmed 073476971 Problem Chronic pain syndrome G89.4 Active confirmed 273412326 Problem Encounter for screening for lung cancer Z12.2 Active confirmed 523584472 Problem Burning sensation of vulva N94.89 Active confirmed 060420108 ALLERGIES Allergen (clinical drug ingredient) Drug/Non Drug Allergy do cumented on EMR Reaction Allergy Type Onset Date Status Sulfasalazine Sulfa Antibiotics Anaphylaxis Drug Allergy A ctive atorvastatin Lipitor(ND Code:[address]-76) lips tingle/numbness D rug Allergy Active tizanidine Tizanidine HCl(ND Code:[address]-69) Rash Drug All ergy Active IV dye allergic per pt Non Drug Allergy Act alana Talwin Rash Drug Allergy Active Statins (for Allergy Use Only) face numb/ tingles Drug All ergy Active ENCOUNTERS from 1960 to 2021-04-01 Encounter Location Date Provider Diagnosis [place] [address] [facility] [phone] [place] [address] Mar, Krysten Rock IMMUNIZATIONS Vaccine Route Administration Date [...] Education Language: Question Answer Notes Languages spoken: Lao Tenriism: Question Answer Notes Tenriism 24 Mandaeism Sexual Hx: Question Answer Notes Had sex [...] capsule Orally tid for 30 day(s) Active [place] Nasal [place] 0.65 % 2 sprays in each nostril [...] Information RESULTS No Results REASON FOR VISIT Please advise MEDICAL (GENERAL) HISTORY Type Description Date Medical [...] polyp by colonos copy October 2006-Betty normal colonoscopy-W//08/2014 medium tubular adenoma-W Medical History obstructive sleep [...] 60) Medical History JORDAN-06/2009 NPSG c RDI 02-Deayxc-vuqokor could not tolerate CPAP Medical History hypertension-09/2015 [...] MRI/MRA brain, MRA carotids 10/12-10/15/2015 Hospitalization History [facility] ED-Flank pain, kidney stone 07/2018 Hospitalization History [facility] encephalopathy-UDS + wilmer zo only, trazadone/diazepam dose [...] Name:Case Monet, 2021-06-25 1 1:45:00 AM, [address] [facility], , [place], [address], Insurance Providers Payer Name Payer Address Payer Phone Insured Name Patient Relati onship to Insured Coverage Start Date Coverage End Date MEDICARE COMPLETE [facility] [address] [address] [facility] [phone] LIDIA AGUIRRE
--- OUTSIDE RECORDS SUMMARY | 2021-04-18 13:32 | CCD ---
Author Author [facility] Organization [facility] Address Unknown Phone Unavailable Care Team Providers Care Cnc Service Technician Name Role Phone Case Monet Unavailable PROBLEMS ALLERGIES ENCOUNTERS from 1960 to 2021-04-02 IMMUNIZATIONS SOCIAL HISTORY REASON FOR REFERRAL No Information VITAL SIGNS MEDICATIONS PROCEDURES No Information RESULTS No Results REASON FOR VISIT MEDICAL (GENERAL) HISTORY Goals Section Health Concerns MEDICAL EQUIPMENT No Information MENTAL STATUS FUNCTIONAL STATUS ASSESSMENTS No Information PLAN OF TREATMENT Insurance Providers
--- OUTSIDE RECORDS SUMMARY | 2021-04-18 13:32 | CCD ---
Author Author [facility] Organization 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 Active confirmed 81171437 Problem Hyperlipidemia E78.5 Active confirmed 82983 004 Problem Hypothyroidism, unspecified E03.9 Active confirmed 91211497 Problem Osteoarthritis of both knees M17.0 Active confirme d 020941370 Problem IFG (impaired fasting glucose) R73.01 Active confir med 672283224 Problem Obesity E66.9 Active confirmed 809474677 Problem Nephrolithiasis N20.0 Active confirmed 9557 0007 Problem Osteoarthritis of spine with radiculopathy, thoracic regio n M47.24 Active confirmed 1394977 Problem Depression F32.9 Active confirmed 47580774 Problem 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 Active confirmed 161 475696 Problem PUD (peptic ulcer disease) K27.9 Active confirmed 26708417 Problem Essential (primary) hypertension I10 Active conf irmed 52985335 Problem Gastro-esophageal reflux disease without esophagitis K21.9 Active confirmed 526337077 Problem TIA (transient ischemic attack) G45.9 Active confi rmed 368938420 Problem JORDAN (obstructive sleep apnea) G47.33 Active confirm ed 67191865 Problem Herpes gingivostomatitis B00.2 Active confirmed 96089857 Problem Folic acid deficiency E53.8 Active confirmed 927211812 Problem Aortic root dilatation I77.810 Active confirmed 690384304 Problem Spondylosis of thoracic region without myelopath y or radiculopathy M47.814 Active confirmed 756864442 Problem Macrocytosis D75.89 Active confirmed 6633279 00 Problem Hx of colonic polyp Z86.010 Active confirmed 335920442 Problem Non-seasonal allergic rhinitis, unspecified trigger J30.89 Active confirmed 16410232 Problem Cervical spondylosis M47.812 Active confirmed 185522002 Problem Cervical cancer screening Z12.4 Active confirmed 119742236 Problem Anxiety F41.9 Active confirmed 25658139 Problem Insomnia G47.00 Active confirmed 411699445 Problem Other chronic pain G89.29 Active confirmed 8 8952346 Problem Breast cancer screening Z12.39 Active confirmed 350102735 Problem Migraine headache G43.909 Active confirmed 3 4114428 Problem Renal cyst N28.1 Active confirmed 225848615 Problem Chronic pain syndrome G89.4 Active confirmed 180670154 Problem Encounter for screening for lung cancer Z12.2 Active confirmed 119670765 Problem Burning sensation of vulva N94.89 Active confirmed 904092494 ALLERGIES Allergen (clinical drug ingredient) Drug/Non Drug Allergy do cumented on EMR Reaction Allergy Type Onset Date Status Sulfasalazine Sulfa Antibiotics Anaphylaxis Drug Allergy A ctive atorvastatin Lipitor([facility] Code:[address]-08) lips tingle/numbness D rug Allergy Active tizanidine Tizanidine HCl([facility] Code:[address]-23) Rash Drug All ergy Active IV dye allergic per pt Non Drug Allergy Act alana Talwin Rash Drug Allergy Active Statins (for Allergy Use Only) face numb/ tingles Drug All ergy Active ENCOUNTERS from 1960 to 2021-03-27 Encounter Location Date Provider Diagnosis [id number] [facility] [phone] [place] [address] Mar, Case Monet IMMUNIZATIONS Vaccine Route Administration Date Status Meningococcal 0.5mL Menveo Groups A,C,Y & W-135 IM Intramuscular Jun 29, 2018 Administered Pneumococcal Adult 0.5mL Pneumovax 23 IM Intramuscular Jun 29, 019 Administered Pneumococcal 0.5mL Prevnar 13 IM Intramuscular Jun 18, 2013 A dministered Influenza 6mo & up Fluzone IM Intramuscular Mar 24, 2017 Admi nistered Influenza 6mo & up Fluzone IM Intramuscular Apr 15, 2016 Admi nistered Influenza 6mo & up Fluzone [...] Education Language: Question Answer Notes Languages spoken: Yoruba Buddhist: Question Answer Notes Buddhist 24 Christian Sexual Hx: Question Answer Notes Had sex [...] 30 Days 0 7 Feb, 2021 Active Clopidogrel Bisulfate 75 MG TAKE ONE TABLET BY MOUTH E VERY DAY Orally once daily for 30 days Active Clopidogrel Bisulfate 75 MG TAKE ONE TABLET BY MOUTH E VERY DAY Orally once daily for 90 day(s) Active Levothyroxine Sodium 25 MCG 1 tablet Orally Once a day Active Albuterol Sulfate (2.5 MG/3ML) 0.083% 3 ml as needed I nhalation every 6 hrs as needed Apr, Active Zofran 4 MG 1 tab Orally bid prn nausea for 30 day(s) Active Belbuca 75 MCG 1 film to the gum Bucally Once a day for 30 Days Mar, Active traZODone HCl 100 MG 1 tab Orally at bedtime Active Rosuvastatin Calcium 20 MG 1 tablet Orally Once a day for 90 day(s) Active Valtrex 500 MG 2 tablets Orally BID x 1 day with flare for 1 dose(s) Active traMADol HCl 50 MG 1 tablet as needed Orally Once a day for 30 D ays Mar, Active Gabapentin 100 MG 1 capsule Orally tid for 30 day(s) Active Nebulizer/Tubing/Mouthpiece - as directed topically [...] a day for 3 0 day(s) Active Folic Acid 2 MG 1 tablet Orally daily Active Lidocaine 5 % 1 application to affected ar ea as needed Externally Three times a day for 30 days Active Pantoprazole Sodium 40 MG 1 tablet Orally bid for 30 days Active Carvedilol 12.5 MG 1 tab Orally Twice a day for 90 day(s) Active Telmisartan 20 MG 1 tablet Orally bid for 90 day(s) Active diazePAM 10 MG 1/2 tablet Orally at bedtime Active [place] Nasal [place] 0.65 % 2 sprays in each nostril [...] Information RESULTS No Results REASON FOR VISIT tramadol MEDICAL (GENERAL) HISTORY Type Description Date Medical History history of nonsustained asym ptomatic ventricular tachycardia- 09/2012 RST low risk-Antecol Medical History nicotine addiction-1PPD from [age]Y, 07/2011 FEV1 3.0L (104%)/ratio 98% Medical History MDD/NGUYỄN/PTSD/chronic insomnia-follows wi th Dr. Gallego Medical History hyperlipidemia 2B Medical History dyspepsia-small hiatal herni a, moderate chronic gastritis/small gastric ulcer, - H pylori by 08/2014 EGD-W/02/09/16 EGD-small HH, esophagela biopsy s metaplasia/eosinophil and [...] 60) Medical History JORDAN-06/2009 NPSG c RDI 38-[id number]-chonzrl could not tolerate CPAP Medical History hypertension-09/2015 [...] MRI/MRA brain, MRA carotids 10/12-10/15/2015 Hospitalization History [facility] ED-Flank pain, kidney stone /07/2018 Hospitalization History [facility] encephalopathy-UDS + wilmer zo only, trazadone/diazepam dose [...] 0.6 Subcutaneous daily for 30 Days Feb, traZODone HCl 100 MG 1 tab Orally at bedtime Clopidogrel Bisulfate 75 MG TAKE ONE TABLET BY MOUTH E DAY Orally once daily for 90 day(s) Levothyroxine Sodium 25 MCG 1 tablet Orally Once a day traMADol HCl 50 MG 1 tablet as needed Orally Once a day for 30 Days Mar, Zofran 4 MG 1 tab Orally bid prn nausea for 30 day(s) Pantoprazole Sodium 40 MG 1 tablet Orally bid for 30 days Diclofenac Sodium 1 % 4 gm Transdermal qid to B knees for 30 day s Rosuvastatin Calcium 20 MG 1 tablet Orally Once a day for 90 day (s) Tums Ultra 1000 1000 MG 1 tablet Orally Once a day p rn LAXMI symptoms for 30 day(s) Carafate 1 GM 1 tablet on an empty stomach Orally Twice a day for 30 day(s) Belbuca 75 MCG 1 film to the gum [place]ally Once a day for 30 Days Mar, diazePAM 10 MG 1/2 tablet Orally at bedtime Gabapentin 100 MG 1 capsule Orally tid for 30 day(s) Carvedilol 12.5 MG 1 tab Orally Twice a day for 90 day(s) Valtrex 500 MG 2 tablets Orally BID x 1 day with flare for 1 do se(s) Telmisartan 20 MG 1 tablet Orally bid for 90 day(s) Folic Acid 2 MG 1 tablet Orally daily Next Appt Details Provider Name:Case Monet, 2021-06-25 1 1:45:00 AM, [address] [facility], , [place], [address], Insurance Providers Payer Name Payer Address Payer Phone Insured Name Patient Relati onship to Insured Coverage Start Date Coverage End Date MEDICARE COMPLETE [facility] [address] [address] [facility] [id number] LIDIA AGUIRRE self
--- OUTSIDE RECORDS SUMMARY | 2021-04-18 13:32 | CCD ---
Author Author [facility] Organization [facility] Address Unknown Phone Unavailable Care Team Providers Care Corrections Corporal Name Role Phone Case Monet Unavailable PROBLEMS ALLERGIES ENCOUNTERS from 1960 to 2021-04-01 IMMUNIZATIONS SOCIAL HISTORY REASON FOR REFERRAL No Information VITAL SIGNS MEDICATIONS PROCEDURES No Information RESULTS No Results REASON FOR VISIT MEDICAL (GENERAL) HISTORY Goals Section Health Concerns MEDICAL EQUIPMENT No Information MENTAL STATUS FUNCTIONAL STATUS ASSESSMENTS No Information PLAN OF TREATMENT Insurance Providers
--- OUTSIDE RECORDS SUMMARY | 2021-04-18 13:33 | CCD | Continuity of Care Document ---
Author Author [facility] Organization Unknown Address [address] [place] [address] Phone [phone] Care Team Providers Care Oyster Opener Name Role Phone Case Monet M.D. [facility] [phone] Problems Description No Information Available Social History Type Date Description Comments Sex Unknown Tobacco Use Start: Unknown End: Unknown Patient is a former smoker Smoking Status Reviewed: 03/13/21 Patient is a former smoker Allergies and adverse reactions Active Allergies Criticality Reaction | Severity Comments Date Sulfa Unable to assess criticality 07/07/2020 Medications Active Medications SIG Qnty Indications Ordering Provide r Date CPAP Device 7CM LCW Sharon Omre N.P. 07/25/2020 Pantoprazole Sodium 40mg Tablets D R Take One Tablet By Mouth Twice A Day Unknown Telmisartan 20mg Tablets Take 1/2 Tablet By Mouth Two Times A Day Unknown 000 Carvedilol 12.5mg Tablets Take One Tablet By Mouth Twice A Day With Food Unknown 0 Levothyroxine Sodium 25mcg Tablets Take One Tablet By Mouth Every Day Unknown Rosuvastatin Calcium 40mg Tablets Tony 1/2 Tablet By Mouth Once Daily Unknown Diazepam 10mg Tablets tab by mouth every day 2tabs Unknown Folic Acid 1mg Tablets Take Two Tablets By Mouth Every Day Unknown Montelukast Sodium 10mg Tablets Take One Tablet By Mouth AT Bedtime Unknown Clopidogrel Bisulfate 75mg Tablets 1 tab by mouth every day Case Monet M.D. 0 Xyzal Allergy 24HR 5mg Tablets 1 by mouth every day Unknown Vitamin D 50mcg (2000 Ut) Capsules 1 tab by mouth every day Unknown Trazodone HCL 100mg Tablets 1 tab every day at bedtime Unknown Immunizations Description No Information Available Vital Signs Date Vital Result Comment 03/13/2021 2:10pm BP Systolic 100 mmHg BP Diastolic 62 mmHg Heart Rate 80 /min O2 % BldC Oximetry 95 % Respiratory Rate 18 /min Height 68 inches 5'8" Weight 223.00 lb BMI (Body Mass Index) 33.9 kg/m2 [place] Body Weight 140 lb Weight 101.153 kg BSA (Body Surface Area) 2.14 m2 10/22/2020 9:38am BP Systolic 118 mmHg BP Diastolic 62 mmHg Heart Rate 61 /min O2 % BldC Oximetry 95 % Weight 221.25 lb Weight 100.359 kg Results Description No Information Available Procedures Date Code Description Status 03/13/2021 96867 Office/Outpatient Established Lo w MDM 20-29 Min Completed 10/22/2020 96579 Office/Outpatient Established Lo w MDM 20-29 Min Completed Medical Devices Description No Information Available Encounters Type Date Location Provider Dx Diagnosis Office Visit 03/13/2021 2:15p [facility] Hudson Omer, N.P. G47.33 Obstructive sleep apnea (adult) (pediatr ic) Office Visit 10/22/2020 9:45a [facility] Hudson Omer, N.P. G47.33 Obstructive sleep apnea (adult) (pediatr ic) Assessments Date Code Description Provider 03/13/2021 G47.33 Obstructive sleep apnea (adult) (pediatric) Sharon Omer, N.P. 10/22/2020 G47.33 Obstructive sleep apnea (adult) (pediatric) Sharon Omer, N.P. Plan of Treatment Future Appointment(s):* 03/15/2022 2:45 pm - Sharon Omer, N.PJoseph at [facility] 03/13/2021 - Sharon Omer, N.P.* G47.33 Obstructive sleep apnea (adult) (pediatric) * * Comments:* 1. No changes were made to the CPAP pressure at today's visit. 2. The patient is aware to call with any problems related to CPAP use, snoring through the mask or return of daytime sleepiness. 3. Per the patient's request, a CPAP supply order has been sent to the homecare company. * Follow up:* 1. Follow up in one year to reassess CPAP compliance or sooner should problems develop. Functional Status Functional Condition Comment Date Status Independent with all ADL's Activ e Mental Status Description No Information Available Referrals Description No Information Available
--- OUTSIDE RECORDS SUMMARY | 2021-04-18 13:33 | CCD ---
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 Active confirmed 82313387 Problem Hyperlipidemia E78.5 Active confirmed 72398 004 Problem Hypothyroidism, unspecified E03.9 Active confirmed 83642933 Problem Osteoarthritis of both knees M17.0 Active confirme d 521754920 Problem IFG (impaired fasting glucose) R73.01 Active confir med 957209650 Problem Obesity E66.9 Active confirmed 141907233 Problem Nephrolithiasis N20.0 Active confirmed 9557 0007 Problem Osteoarthritis of spine with radiculopathy, thoracic regio n M47.24 Active confirmed 3705098 Problem Depression F32.9 Active confirmed 63939049 Problem 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 Active confirmed 161 263277 Problem PUD (peptic ulcer disease) K27.9 Active confirmed 70214975 Problem Essential (primary) hypertension I10 Active conf irmed 61095808 Problem Gastro-esophageal reflux disease without esophagitis K21.9 Active confirmed 092681882 Problem TIA (transient ischemic attack) G45.9 Active confi rmed 741719779 Problem JORDAN (obstructive sleep apnea) G47.33 Active confirm ed 81535162 Problem Herpes gingivostomatitis B00.2 Active confirmed 89176482 Problem Folic acid deficiency E53.8 Active confirmed 790132620 Problem Aortic root dilatation I77.810 Active confirmed 968633466 Problem Spondylosis of thoracic region without myelopath y or radiculopathy M47.814 Active confirmed 866593795 Problem Macrocytosis D75.89 Active confirmed 7002980 00 Problem Hx of colonic polyp Z86.010 Active confirmed 903439051 Problem Non-seasonal allergic rhinitis, unspecified trigger J30.89 Active confirmed 16656776 Problem Cervical spondylosis M47.812 Active confirmed 226543422 Problem Cervical cancer screening Z12.4 Active confirmed 193758870 Problem Anxiety F41.9 Active confirmed 61403789 Problem Insomnia G47.00 Active confirmed 649146337 Problem Other chronic pain G89.29 Active confirmed 8 3427989 Problem Breast cancer screening Z12.39 Active confirmed 205239861 Problem Migraine headache G43.909 Active confirmed 3 4707188 Problem Renal cyst N28.1 Active confirmed 183434470 Problem Chronic pain syndrome G89.4 Active confirmed 829575123 Problem Encounter for screening for lung cancer Z12.2 Active confirmed 668358299 Problem Burning sensation of vulva N94.89 Active confirmed 178767348 ALLERGIES Allergen (clinical drug ingredient) Drug/Non Drug Allergy do cumented on EMR Reaction Allergy Type Onset Date Status atorvastatin Lipitor([facility] Code:[address]-67) lips tingle/numbness D rug Allergy Active Sulfa (for allergy use only) Anaphylaxis Drug Allergy Active tizanidine Tizanidine HCl([facility] Code:[address]-84) Rash Drug All ergy Active IV dye allergic per pt Non Drug Allergy Act alana Talwin Rash Drug Allergy Active Statins (for Allergy Use Only) face numb/ tingles Drug All ergy Active ENCOUNTERS from 1960 to 2021-02-20 Encounter Location Date Provider Diagnosis [address] [facility] [phone] [place] [address] Feb, Case Monet IMMUNIZATIONS Vaccine Route Administration Date [...] Education Language: Question Answer Notes Languages spoken: Occitan Religious: Question Answer Notes Religious 24 Jainism Sexual Hx: Question Answer Notes Had sex [...] Notes Start Da te End Date Status traMADol HCl 50 MG 1 tablet as needed Orally Once a day for 30 D ays Feb, Active Levothyroxine Sodium 25 MCG 1 tablet Orally Once a day Active Tums Ultra 1000 1000 MG 1 tablet Orally Once a day p rn LAXMI symptoms for 30 day(s) Active Telmisartan 20 MG 1 tablet Orally bid for 90 day(s) Active Albuterol Sulfate (2.5 MG/3ML) 0.083% 3 ml as needed I nhalation every 6 hrs as needed Apr, Active traZODone HCl 100 MG 1 tab Orally at bedtime Active Liraglutide 18 MG/3ML 0.6 Subcutaneous daily for 30 Days 0 7 Feb, 2021 Active Clopidogrel Bisulfate 75 MG TAKE ONE TABLET BY MOUTH E VERY DAY Orally once daily for 30 days Active Gabapentin 100 MG 1 capsule Orally tid for 30 day(s) Active Clopidogrel Bisulfate 75 MG TAKE ONE TABLET BY MOUTH E VERY DAY Orally once daily Active Rosuvastatin Calcium 20 MG 1 tablet Orally Once a day for 90 day(s) Active diazePAM 10 MG 1/2 tablet Orally at bedtime Active Diclofenac Sodium 1 % 4 gm Transdermal qid to B knees for 30 days Active Nebulizer - as directed orally Daily for 999 days Apr, Active Vitamin D 2000 UNIT 1 tablet Orally daily for 90 day(s) Active Pantoprazole Sodium 40 MG 1 tablet Orally bid for 30 days Active Carvedilol 12.5 MG 1 tab Orally Twice a day for 90 day(s) Active [place] Nasal [place] 0.65 % 2 sprays in each nostril as needed Nasally TID for 30 Days Jun, Active Nebulizer/Tubing/Mouthpiece - as directed topically ev cirilo 6 hours as needed for 30 Days Apr, Active Valtrex 500 MG 2 tablets Orally BID x 1 day with flare for 1 dose(s) Active Folic Acid 2 MG 1 tablet Orally daily Active Olopatadine HCl 0.1 % 1 drop into affected eye Oph thalmic Twice a day for 30 day(s) Active Carafate 1 GM 1 tablet on an empty stomach Orally Twice a day for 3 0 day(s) Active Lidocaine 5 % 1 application to affected ar ea as needed Externally Three times a day for 30 days Active Nasacort Allergy 24HR 55 MCG/ACT 1 puff in each nostril Nasally Onc e a day Active Montelukast Sodium 10 MG 1 tablet Orally at bedtime for 30 days Active Cyclobenzaprine HCl 10 MG 1 tablet as needed Orally Three times a day for 30 Active Lansoprazole 30 MG 1 capsule before a meal Orally bid for 30 day (s) Aug, Active Zofran 4 MG 1 tab Orally bid prn nausea for 30 day(s) Active PROCEDURES No Information RESULTS No Results REASON FOR VISIT medication issue MEDICAL (GENERAL) HISTORY Type Description Date Medical History history of nonsustained asym ptomatic ventricular tachycardia- 09/2012 RST low risk-Antecol Medical History nicotine addiction-1PPD from [age]Y, 07/2011 FEV1 3.0L (104%)/ratio 98% Medical History MDD/NGUYỄN/PTSD/chronic insomnia-follows [facility] Dr. Gallego Medical History hyperlipidemia 2B Medical [...] 60) Medical History JORDAN-06/2009 NPSG c RDI 12-[id number] could not tolerate CPAP Medical History hypertension-09/2015 [...] MRI/MRA brain, MRA carotids 10/12-10/15/2015 Hospitalization History [facility] ED-Flank pain, kidney stone 07/2018 Hospitalization History [facility] encephalopathy-UDS + wilmer zo only, [...] Medication Name Sig Start Date Stop Date Montelukast Sodium 10 MG 1 tablet Orally at bedtime for 30 days Zofran 4 MG 1 tab Orally bid prn nausea for 30 day(s) Olopatadine HCl 0.1 % 1 drop into affected eye Oph thalmic Twice a day for 30 day(s) Nasacort Allergy 24HR 55 MCG/ACT 1 puff in each nostril Nasally Once a day traMADol HCl 50 MG 1 tablet as needed Orally Once a day for 30 Days Feb, Levothyroxine Sodium 25 MCG 1 tablet Orally Once a day Tums Ultra 1000 1000 MG 1 tablet Orally Once a day p rn LAXMI symptoms for 30 day(s) Telmisartan 20 MG 1 tablet Orally bid for 90 day(s) Rosuvastatin Calcium 20 MG 1 tablet Orally Once a day for 90 day (s) traZODone HCl 100 MG 1 tab Orally at bedtime Diclofenac Sodium 1 % 4 gm Transdermal qid to B knees for 30 day s Lidocaine 5 % 1 application to affected ar ea as needed Externally Three times a day for 30 days Gabapentin 100 MG 1 capsule Orally tid for 30 day(s) Carafate 1 GM 1 tablet on an empty stomach Orally Twice a day for 30 day(s) Pantoprazole Sodium 40 MG 1 tablet Orally bid for 30 days Liraglutide 18 MG/3ML 0.6 Subcutaneous daily for 30 Days Feb, diazePAM 10 MG 1/2 tablet Orally at bedtime Valtrex 500 MG 2 tablets Orally BID x 1 day with flare for 1 do se(s) Clopidogrel Bisulfate 75 MG TAKE ONE TABLET BY MOUTH E DAY Orally once daily Folic Acid 2 MG 1 tablet Orally daily Carvedilol 12.5 MG 1 tab Orally Twice a day for 90 day(s) Next Appt Details Provider Name:Case Monet, 2021-06-25 1 1:45:00 AM, [address] [facility], , [place], [address], Insurance Providers Payer Name Payer Address Payer Phone Insured Name Patient Relati onship to Insured Coverage Start Date Coverage End Date MEDICARE COMPLETE [facility] [address] [address] [facility] [phone] LIDIA AGUIRRE self
--- OUTSIDE RECORDS SUMMARY | 2021-04-18 13:33 | CCD ---
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 Active confirmed 39753265 Problem Hyperlipidemia E78.5 Active confirmed 94720 004 Problem Hypothyroidism, unspecified E03.9 Active confirmed 90904390 Problem Osteoarthritis of both knees M17.0 Active confirme d 194030577 Problem IFG (impaired fasting glucose) R73.01 Active confir med 916626821 Problem Obesity E66.9 Active confirmed 884983374 Problem Nephrolithiasis N20.0 Active confirmed 9557 0007 Problem Osteoarthritis of spine with radiculopathy, thoracic regio n M47.24 Active confirmed 9610492 Problem Depression F32.9 Active confirmed 53415763 Problem 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 Active confirmed 161 323140 Problem PUD (peptic ulcer disease) K27.9 Active confirmed 90898271 Problem Essential (primary) hypertension I10 Active conf irmed 86245854 Problem Gastro-esophageal reflux disease without esophagitis K21.9 Active confirmed 806716119 Problem TIA (transient ischemic attack) G45.9 Active confi rmed 923013142 Problem JORDAN (obstructive sleep apnea) G47.33 Active confirm ed 35906296 Problem Herpes gingivostomatitis B00.2 Active confirmed 57830661 Problem Folic acid deficiency E53.8 Active confirmed 346236802 Problem Aortic root dilatation I77.810 Active confirmed 891589612 Problem Spondylosis of thoracic region without myelopath y or radiculopathy M47.814 Active confirmed 746417546 Problem Macrocytosis D75.89 Active confirmed 2378209 00 Problem Hx of colonic polyp Z86.010 Active confirmed 913327215 Problem Non-seasonal allergic rhinitis, unspecified trigger J30.89 Active confirmed 68661790 Problem Cervical spondylosis M47.812 Active confirmed 449651850 Problem Cervical cancer screening Z12.4 Active confirmed 224402689 Problem Anxiety F41.9 Active confirmed 12982820 Problem Insomnia G47.00 Active confirmed 511635845 Problem Other chronic pain G89.29 Active confirmed 8 8976359 Problem Breast cancer screening Z12.39 Active confirmed 664225469 Problem Migraine headache G43.909 Active confirmed 3 3009460 Problem Renal cyst N28.1 Active confirmed 357413782 Problem Chronic pain syndrome G89.4 Active confirmed 768402081 Problem Encounter for screening for lung cancer Z12.2 Active confirmed 341764629 Problem Burning sensation of vulva N94.89 Active confirmed 344716862 ALLERGIES Allergen (clinical drug ingredient) Drug/Non Drug Allergy do cumented on EMR Reaction Allergy Type Onset Date Status Sulfasalazine Sulfa Antibiotics Anaphylaxis Drug Allergy A ctive atorvastatin Lipitor([facility] Code:[address]-22) lips tingle/numbness D rug Allergy Active tizanidine Tizanidine HCl([facility] Code:[address]-54) Rash Drug All ergy Active IV dye allergic per pt Non Drug Allergy Act alana Talwin Rash Drug Allergy Active Statins (for Allergy Use Only) face numb/ tingles Drug All ergy Active ENCOUNTERS from 1960 to 2021-03-26 Encounter Location Date Provider Diagnosis [place] [id number] [facility] [phone] [place] [address] Mar, Case Monet IMMUNIZATIONS Vaccine Route Administration [...] Education Language: Question Answer Notes Languages spoken: Irish Presybeterian: Question Answer Notes Presybeterian 24 Islam Sexual Hx: Question Answer Notes Had sex [...] MG 1 tab Orally at bedtime Active Belbuca 75 MCG 1 film to the gum Bucally Once a day for 30 Days Mar, Active traMADol HCl ER 100 MG 1/2 tablet Orally Once a day prn for 30 D ays Mar, Active Rosuvastatin Calcium 20 MG 1 tablet Orally Once a day for 90 day(s) Active Valtrex 500 MG 2 tablets Orally BID x 1 day with flare for 1 dose(s) Active Zofran 4 MG 1 tab Orally bid prn nausea for 30 day(s) Active Gabapentin 100 MG 1 capsule Orally tid for 30 day(s) Active Nebulizer/Tubing/Mouthpiece - as directed topically ev criilo 6 hours as needed for 30 Days [...] MG 1/2 tablet Orally at bedtime Active [place] Nasal [place] 0.65 % 2 sprays in each nostril [...] Information RESULTS No Results REASON FOR VISIT RAMANA Francisco 75mcg film, QD MEDICAL (GENERAL) HISTORY Type Description Date Medical [...] 60) Medical History JORDAN-06/2009 NPSG c RDI 79-Bouvop-gftskyb could not tolerate CPAP Medical History hypertension-09/2015 [...] MRI/MRA brain, MRA carotids 10/12-10/15/2015 Hospitalization History [facility] ED-Flank pain, kidney stone /07/2018 Hospitalization History [facility] encephalopathy-UDS + wilmer zo only, [...] 0.6 Subcutaneous daily for 30 Days Feb, traMADol HCl ER 100 MG 1/2 tablet Orally Once a day prn for 30 Days Mar, Clopidogrel Bisulfate 75 MG TAKE ONE TABLET BY MOUTH E VERY DAY Orally once daily for 90 day(s) Levothyroxine Sodium 25 MCG 1 tablet Orally Once a day Zofran 4 MG 1 tab Orally bid prn nausea for 30 day(s) traZODone HCl 100 MG 1 tab Orally at bedtime Pantoprazole Sodium 40 MG 1 tablet Orally [...] Name:Case Monet, 2021-06-25 1 1:45:00 AM, [address] [facility], , [place], [address], Insurance Providers Payer Name Payer Address Payer Phone Insured Name Patient Relati onship to Insured Coverage Start Date Coverage End Date MEDICARE COMPLETE [employer] [address] [address] [facility] [phone] LIDIA AGUIRRE
--- OUTSIDE RECORDS SUMMARY | 2021-04-18 13:33 | CCD | Continuity of Care Document ---
Author Author [facility] Organization Unknown Address [address] [place] [address] Phone [phone] Care Team Providers Care Automobile Mechanic Radiator Name Role Phone Case Monet M.D. [facility] [phone] Problems Description No Information Available Social History [...] r Date CPAP Device 7CM LCW Sharon Omer N.P. 07/25/2020 Pantoprazole Sodium 40mg Tablets D [...] lb BMI (Body Mass Index) 33.9 kg/m2 [place] Body Weight 140 lb Weight 101.153 kg BSA (Body Surface Area) 2.14 m2 10/22/2020 9:38am BP Systolic 118 mmHg BP Diastolic 62 mmHg Heart Rate 61 /min O2 % BldC Oximetry 95 % Weight 221.25 lb Weight 100.359 kg Results Description No Information Available Procedures Date Code Description Status 10/22/2020 71007 Office/Outpatient Established Lo w MDM 20-29 Min Completed Medical Devices Description No Information Available Encounters Type Date Location Provider Dx Diagnosis Office Visit 10/22/2020 9:45a [facility] Pulmonary/Thoracic Hudson Omer, N.P. G47.33 Obstructive sleep apnea (adult) (pediatr ic) Assessments Date Code Description Provider 03/13/2021 G47.33 Obstructive sleep apnea (adult) (pediatric) Sharon Omer, N.P. 10/22/2020 G47.33 Obstructive sleep apnea (adult) (pediatric) Sharon Omer, N.P. Plan of Treatment Future Appointment(s):* 03/15/2022 2:45 pm - Sharon Omer, N.PJoseph at [facility] Pulmonary/Thoracic 03/13/2021 - Sharon Omer, N.P.* G47.33 [...] supply order has been sent to the [employer]. * Follow up:* 1. Follow up in one year to reassess CPAP compliance or sooner should problems develop. Functional Status Functional Condition Comment Date Status Independent with all ADL's Activ e Mental Status Description No Information Available Referrals Description No Information Available
--- OUTSIDE RECORDS SUMMARY | 2021-04-18 13:33 | CCD ---
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 Active confirmed 87613278 Problem Hyperlipidemia E78.5 Active confirmed 25583 004 Problem Hypothyroidism, unspecified E03.9 Active confirmed 32793453 Problem Osteoarthritis of both knees M17.0 Active confirme d 404425086 Problem IFG (impaired fasting glucose) R73.01 Active confir med 609033295 Problem Obesity E66.9 Active confirmed 204743014 Problem Nephrolithiasis N20.0 Active confirmed 9557 0007 Problem Osteoarthritis of spine with radiculopathy, thoracic regio n M47.24 Active confirmed 2207864 Problem Depression F32.9 Active confirmed 15112386 Problem 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 Active confirmed 161 394374 Problem PUD (peptic ulcer disease) K27.9 Active confirmed 48548206 Problem Essential (primary) hypertension I10 Active conf irmed 17990186 Problem Gastro-esophageal reflux disease without esophagitis K21.9 Active confirmed 843320776 Problem TIA (transient ischemic attack) G45.9 Active confi rmed 654599387 Problem JORDAN (obstructive sleep apnea) G47.33 Active confirm ed 68392836 Problem Herpes gingivostomatitis B00.2 Active confirmed 77723000 Problem Folic acid deficiency E53.8 Active confirmed 188982059 Problem Aortic root dilatation I77.810 Active confirmed 094388626 Problem Spondylosis of thoracic region without myelopath y or radiculopathy M47.814 Active confirmed 254937344 Problem Macrocytosis D75.89 Active confirmed 2370236 00 Problem Hx of colonic polyp Z86.010 Active confirmed 834787358 Problem Non-seasonal allergic rhinitis, unspecified trigger J30.89 Active confirmed 58785633 Problem Cervical spondylosis M47.812 Active confirmed 189799119 Problem Cervical cancer screening Z12.4 Active confirmed 766736248 Problem Anxiety F41.9 Active confirmed 44082007 Problem Insomnia G47.00 Active confirmed 736752872 Problem Other chronic pain G89.29 Active confirmed 8 1107029 Problem Breast cancer screening Z12.39 Active confirmed 842611532 Problem Migraine headache G43.909 Active confirmed 3 6054618 Problem Renal cyst N28.1 Active confirmed 810303941 Problem Chronic pain syndrome G89.4 Active confirmed 506077604 Problem Encounter for screening for lung cancer Z12.2 Active confirmed 885057874 Problem Burning sensation of vulva N94.89 Active confirmed 405082371 ALLERGIES Allergen (clinical drug ingredient) Drug/Non Drug Allergy do cumented on EMR Reaction Allergy Type Onset Date Status atorvastatin Lipitor([place] Code:[address]-54) lips tingle/numbness D rug Allergy Active Sulfa (for allergy use only) Anaphylaxis Drug Allergy Active tizanidine Tizanidine HCl([place] Code:[address]-06) Rash Drug All ergy Active IV dye allergic per pt Non Drug Allergy Act alana Talwin Rash Drug Allergy Active Statins (for Allergy Use Only) face numb/ tingles Drug All ergy Active ENCOUNTERS from 1960 to 2021-02-20 Encounter Location Date Provider Diagnosis [place] [address] [facility] [phone] [place] [address] 08 Feb, 2021 Case Monet Chronic pain syndrome G89.4 and IFG (impaired fasting glucose) R73.01 IMMUNIZATIONS Vaccine Route Administration Date Status Meningococcal [...] Education Language: Question Answer Notes Languages spoken: Maltese Quaker: Question Answer Notes Quaker 24 Confucianism Sexual Hx: Question Answer Notes Had sex [...] 0.6 Subcutaneous daily for 30 Days 0 Feb, Active Clopidogrel Bisulfate 75 MG TAKE ONE [...] Twice a day for 90 day(s) Active [place] Nasal [place] 0.65 % 2 sprays in each nostril [...] Results REASON FOR VISIT RAMANA Francisco 75mcg films MEDICAL (GENERAL) HISTORY Type Description Date Medical [...] 60) Medical History JORDAN-06/2009 NPSG c RDI 76-Noevsn-sqjccks could not tolerate CPAP Medical History hypertension-09/2015 [...] MRI/MRA brain, MRA carotids 10/12-10/15/2015 Hospitalization History [facility] ED-Flank pain, kidney stone 07/2018 Hospitalization History [facility] encephalopathy-UDS + wilmer zo only, trazadone/diazepam [...] No Information FUNCTIONAL STATUS No Information ASSESSMENTS Encounter Date Diagnosis Assessment Notes Treatment Notes Treatm ent Clinical Notes Feb, Chronic pain syndrome (ICD-10 - G89.4) Feb, IFG (impaired fasting glucose) (ICD-10 - R73.01) PLAN OF TREATMENT Medication Medication Name Sig [...] 90 day(s) Next Appt Details Provider Name:Case Mnoet, 2021-06-25 1 1:45:00 AM, [address] [facility], , [place], [address], Insurance Providers Payer Name Payer Address Payer Phone Insured Name Patient Relati onship to Insured Coverage Start Date Coverage End Date MEDICARE COMPLETE [facility] [address] [address] [facility] [phone] LIDIA AGUIRRE
--- OUTSIDE RECORDS SUMMARY | 2021-04-18 13:33 | CCD | Continuity of Care Document ---
Author Author Laura [facility] N.P. Organization Unknown Address [address] [place] [address] Phone [phone] Care Team Providers Care Qa Intern Name Role Phone Case Monet M.D. [facility] [phone] Problems Description No Information Available Social History [...] lb BMI (Body Mass Index) 33.9 kg/m2 [place] Body Weight 140 lb Weight 101.153 kg BSA (Body Surface Area) 2.14 m2 10/22/2020 9:38am BP Systolic 118 mmHg BP Diastolic 62 mmHg Heart Rate 61 /min O2 % BldC Oximetry 95 % Weight 221.25 lb Weight 100.359 kg Results Description No Information Available Procedures Date Code Description Status 10/22/2020 75430 Office/Outpatient Established Lo w MDM 20-29 Min Completed Medical Devices Description No Information Available Encounters Type Date Location Provider Dx Diagnosis Office Visit 10/22/2020 9:45a [facility] Pulmonary/Thoracic [place] Omer, N.P. G47.33 Obstructive sleep apnea (adult) (pediatr ic) Assessments Date Code Description Provider 03/13/2021 G47.33 Obstructive sleep apnea (adult) (pediatric) Sharon Omer, N.P. 10/22/2020 G47.33 Obstructive sleep apnea (adult) (pediatric) Sharon Omer, N.P. Plan of Treatment Future Appointment(s):* 03/15/2022 2:45 pm - Sharon Omer, N.PJoseph at [facility] Pulmonary/Thoracic 03/13/2021 - Sharon Omer, N.P.* [...] supply order has been sent to the [employer]. * Follow up:* 1. Follow up in one year to reassess CPAP compliance or sooner should problems develop. Functional Status Functional Condition Comment Date Status Independent with all ADL's Activ e Mental Status Description No Information Available Referrals Description No Information Available
--- OUTSIDE RECORDS SUMMARY | 2021-04-18 13:33 | CCD ---
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 Active confirmed 33623854 Problem Hyperlipidemia E78.5 Active confirmed 45630 004 Problem Hypothyroidism, unspecified E03.9 Active confirmed 29284329 Problem Osteoarthritis of both knees M17.0 Active confirme d 845132401 Problem IFG (impaired fasting glucose) R73.01 Active confir med 540460849 Problem Obesity E66.9 Active confirmed 320071956 Problem Nephrolithiasis N20.0 Active confirmed 9557 0007 Problem Osteoarthritis of spine with radiculopathy, thoracic regio n M47.24 Active confirmed 9016110 Problem Depression F32.9 Active confirmed 81872861 Problem 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 Active confirmed 161 381301 Problem PUD (peptic ulcer disease) K27.9 Active confirmed 37236001 Problem Essential (primary) hypertension I10 Active conf irmed 24314910 Problem Gastro-esophageal reflux disease without esophagitis K21.9 Active confirmed 347648843 Problem TIA (transient ischemic attack) G45.9 Active confi rmed 330660125 Problem JORDAN (obstructive sleep apnea) G47.33 Active confirm ed 23570226 Problem Herpes gingivostomatitis B00.2 Active confirmed 11982016 Problem Folic acid deficiency E53.8 Active confirmed 399582833 Problem Aortic root dilatation I77.810 Active confirmed 199720081 Problem Spondylosis of thoracic region without myelopath y or radiculopathy M47.814 Active confirmed 211220916 Problem Macrocytosis D75.89 Active confirmed 0941967 00 Problem Hx of colonic polyp Z86.010 Active confirmed 155004779 Problem Non-seasonal allergic rhinitis, unspecified trigger J30.89 Active confirmed 04458512 Problem Cervical spondylosis M47.812 Active confirmed 523665035 Problem Cervical cancer screening Z12.4 Active confirmed 065550680 Problem Anxiety F41.9 Active confirmed 73933057 Problem Insomnia G47.00 Active confirmed 921677670 Problem Other chronic pain G89.29 Active confirmed 8 4490154 Problem Breast cancer screening Z12.39 Active confirmed 598826325 Problem Migraine headache G43.909 Active confirmed 3 7982588 Problem Renal cyst N28.1 Active confirmed 384026919 Problem Chronic pain syndrome G89.4 Active confirmed 798816503 Problem Encounter for screening for lung cancer Z12.2 Active confirmed 271953073 Problem Burning sensation of vulva N94.89 Active confirmed 712293391 ALLERGIES Allergen (clinical drug ingredient) Drug/Non Drug Allergy do cumented on EMR Reaction Allergy Type Onset Date Status Sulfasalazine Sulfa Antibiotics Anaphylaxis Drug Allergy A ctive atorvastatin Lipitor([facility] Code:[address]-55) lips tingle/numbness D rug Allergy Active tizanidine Tizanidine HCl([facility] Code:[address]-80) Rash Drug All ergy Active IV dye allergic per pt Non Drug Allergy Act alana Talwin Rash Drug Allergy Active Statins (for Allergy Use Only) face numb/ tingles Drug All ergy Active ENCOUNTERS from 1960 to 2021-03-27 Encounter Location Date Provider Diagnosis [place] [address] [facility] [phone] [place] [address] Mar, Case Monet IMMUNIZATIONS Vaccine Route Administration [...] Education Language: Question Answer Notes Languages spoken: Turkmen Latter Day: Question Answer Notes Latter Day 24 Tenriism Sexual Hx: Question Answer Notes Had sex [...] MG 1/2 tablet Orally at bedtime Active [place] Nasal [place] 0.65 % 2 sprays in each nostril [...] 60) Medical History JORDAN-06/2009 NPSG c RDI 43-Nhvosk-uwajkuu could not tolerate CPAP Medical History hypertension-09/2015 [...] MRI/MRA brain, MRA carotids 10/12-10/15/2015 Hospitalization History [facility] ED-Flank pain, kidney stone /07/2018 Hospitalization History [facility] encephalopathy-UDS + wilmer zo only, trazadone/diazepam dose [...] Name:Case Monet, 2021-06-25 1 1:45:00 AM, [address] [facility], , [place], [address], Insurance Providers Payer Name Payer Address Payer Phone Insured Name Patient Relati onship to Insured Coverage Start Date Coverage End Date MEDICARE COMPLETE [facility] [address] [address] [facility] [id number] LIDIA AGUIRRE self
--- OUTSIDE RECORDS SUMMARY | 2021-04-18 13:33 | CCD ---
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 Active confirmed 99662602 Problem Hyperlipidemia E78.5 Active confirmed 29601 004 Problem Hypothyroidism, unspecified E03.9 Active confirmed 21286577 Problem Osteoarthritis of both knees M17.0 Active confirme d 854539790 Problem IFG (impaired fasting glucose) R73.01 Active confir med 247894590 Problem Obesity E66.9 Active confirmed 255950461 Problem Nephrolithiasis N20.0 Active confirmed 9557 0007 Problem Osteoarthritis of spine with radiculopathy, thoracic regio n M47.24 Active confirmed 6411387 Problem Depression F32.9 Active confirmed 67468151 Problem 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 Active confirmed 161 402611 Problem PUD (peptic ulcer disease) K27.9 Active confirmed 42238602 Problem Essential (primary) hypertension I10 Active conf irmed 54191092 Problem Gastro-esophageal reflux disease without esophagitis K21.9 Active confirmed 978147130 Problem TIA (transient ischemic attack) G45.9 Active confi rmed 939440525 Problem JORDAN (obstructive sleep apnea) G47.33 Active confirm ed 99252019 Problem Herpes gingivostomatitis B00.2 Active confirmed 45597278 Problem Folic acid deficiency E53.8 Active confirmed 952947793 Problem Aortic root dilatation I77.810 Active confirmed 666691218 Problem Spondylosis of thoracic region without myelopath y or radiculopathy M47.814 Active confirmed 774043091 Problem Macrocytosis D75.89 Active confirmed 4743592 00 Problem Hx of colonic polyp Z86.010 Active confirmed 627437411 Problem Non-seasonal allergic rhinitis, unspecified trigger J30.89 Active confirmed 24834876 Problem Cervical spondylosis M47.812 Active confirmed 792761917 Problem Cervical cancer screening Z12.4 Active confirmed 494858443 Problem Anxiety F41.9 Active confirmed 10611883 Problem Insomnia G47.00 Active confirmed 336096635 Problem Other chronic pain G89.29 Active confirmed 8 6975407 Problem Breast cancer screening Z12.39 Active confirmed 966179336 Problem Migraine headache G43.909 Active confirmed 3 7395743 Problem Renal cyst N28.1 Active confirmed 863513931 Problem Chronic pain syndrome G89.4 Active confirmed 905681900 Problem Encounter for screening for lung cancer Z12.2 Active confirmed 532602043 Problem Burning sensation of vulva N94.89 Active confirmed 213549671 ALLERGIES Allergen (clinical drug ingredient) Drug/Non Drug Allergy do cumented on EMR Reaction Allergy Type Onset Date Status Sulfasalazine Sulfa Antibiotics Anaphylaxis Drug Allergy A ctive atorvastatin Lipitor([facility] Code:[address]-61) lips tingle/numbness D rug Allergy Active tizanidine Tizanidine HCl([facility] Code:[address]-60) Rash Drug All ergy Active IV dye allergic per pt Non Drug Allergy Act alana Talwin Rash Drug Allergy Active Statins (for Allergy Use Only) face numb/ tingles Drug All ergy Active ENCOUNTERS from 1960 to 2021-03-26 Encounter Location Date Provider Diagnosis [place] [address] [facility] [phone] [place] [address] Mar, Case Monet IMMUNIZATIONS Vaccine Route Administration [...] Education Language: Question Answer Notes Languages spoken: Polish Baptist: Question Answer Notes Baptist 24 Congregational Sexual Hx: Question Answer Notes Had sex [...] MG 1/2 tablet Orally at bedtime Active [place] Nasal [place] 0.65 % 2 sprays in each nostril [...] RESULTS No Results REASON FOR VISIT tramadol ER MEDICAL (GENERAL) HISTORY Type Description Date Medical [...] 60) Medical History JORDAN-06/2009 NPSG c RDI 47-Rukfiv-samvdes could not tolerate CPAP Medical History hypertension-09/2015 [...] Surgical History [facility] 2005 Surgical History cystoscopy-Karina Meyerre 09/30 Hospitalization History L facial droop/numbness/dysa rthria-new onset lasting x 1D-normal MRI/MRA brain 01/30- Hospitalization History L facial droop/numbness/dysa rthria/UE, LE weakness- received tpa in ED, [facility], felt by Dr. Anderson c/w TIA, asprin 81 changed to Plavix, normal MRI/MRA brain, MRA carotids 10/12-10/15/2015 Hospitalization History [facility] ED-Flank pain, kidney stone /07/2018 Hospitalization History [facility] encephalopathy-UDS + wilmer zo only, trazadone/diazepam [...] Orally daily Next Appt Details Provider Name:Case Asifer, 2021-06-25 1 1:45:00 AM, [address] [facility], , [place], [address], Insurance Providers Payer Name Payer Address Payer Phone Insured Name Patient Relati onship to Insured Coverage Start Date Coverage End Date MEDICARE COMPLETE [employer] [address] [address] [facility] [id number] LIDIA AGUIRRE self
--- OUTSIDE RECORDS SUMMARY | 2021-04-18 13:33 | CCD ---
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 Active confirmed 75026777 Problem Hyperlipidemia E78.5 Active confirmed 15779 004 Problem Hypothyroidism, unspecified E03.9 Active confirmed 58273289 Problem Osteoarthritis of both knees M17.0 Active confirme d 856295368 Problem IFG (impaired fasting glucose) R73.01 Active confir med 204391507 Problem Obesity E66.9 Active confirmed 342891562 Problem Nephrolithiasis N20.0 Active confirmed 9557 0007 Problem Osteoarthritis of spine with radiculopathy, thoracic regio n M47.24 Active confirmed 5262331 Problem Depression F32.9 Active confirmed 95687651 Problem 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 Active confirmed 161 151024 Problem PUD (peptic ulcer disease) K27.9 Active confirmed 08426805 Problem Essential (primary) hypertension I10 Active conf irmed 25971347 Problem Gastro-esophageal reflux disease without esophagitis K21.9 Active confirmed 936863208 Problem TIA (transient ischemic attack) G45.9 Active confi rmed 395223381 Problem JORDAN (obstructive sleep apnea) G47.33 Active confirm ed 07952492 Problem Herpes gingivostomatitis B00.2 Active confirmed 91902705 Problem Folic acid deficiency E53.8 Active confirmed 399221502 Problem Aortic root dilatation I77.810 Active confirmed 603170077 Problem Spondylosis of thoracic region without myelopath y or radiculopathy M47.814 Active confirmed 058254970 Problem Macrocytosis D75.89 Active confirmed 7357822 00 Problem Hx of colonic polyp Z86.010 Active confirmed 893643012 Problem Non-seasonal allergic rhinitis, unspecified trigger J30.89 Active confirmed 16934511 Problem Cervical spondylosis M47.812 Active confirmed 826517514 Problem Cervical cancer screening Z12.4 Active confirmed 448176529 Problem Anxiety F41.9 Active confirmed 73307105 Problem Insomnia G47.00 Active confirmed 743279755 Problem Other chronic pain G89.29 Active confirmed 8 6755216 Problem Breast cancer screening Z12.39 Active confirmed 603493042 Problem Migraine headache G43.909 Active confirmed 3 4637768 Problem Renal cyst N28.1 Active confirmed 238993412 Problem Chronic pain syndrome G89.4 Active confirmed 682157825 Problem Encounter for screening for lung cancer Z12.2 Active confirmed 495326842 Problem Burning sensation of vulva N94.89 Active confirmed 649065539 ALLERGIES Allergen (clinical drug ingredient) Drug/Non Drug Allergy do cumented on EMR Reaction Allergy Type Onset Date Status Sulfasalazine Sulfa Antibiotics Anaphylaxis Drug Allergy A ctive atorvastatin Lipitor([facility] Code:[address]-53) lips tingle/numbness D rug Allergy Active tizanidine Tizanidine HCl([facility] Code:[address]-48) Rash Drug All ergy Active IV dye allergic per pt Non Drug Allergy Act alana Talwin Rash Drug Allergy Active Statins (for Allergy Use Only) face numb/ tingles Drug All ergy Active ENCOUNTERS from 1960 to 2021-03-17 Encounter Location Date Provider Diagnosis [place] [address] [facility] [phone] [place] [address] Mar, Case Monet IMMUNIZATIONS Vaccine Route Administration Date Status Meningococcal 0.5mL Menveo Groups A,C,Y & W-135 IM Intramuscular Jun 29, 2018 Administered Pneumococcal Adult 0.5mL Pneumovax 23 IM Intramuscular Jun 29 019 Administered Pneumococcal 0.5mL Prevnar 13 IM [...] Education Language: Question Answer Notes Languages spoken: Croatian Amish: Question Answer Notes Amish 24 Zoroastrian Sexual Hx: Question Answer Notes Had sex [...] Twice a day for 90 day(s) Active [place] Nasal [place] 0.65 % 2 sprays in each nostril [...] Information RESULTS No Results REASON FOR VISIT Antibiotics MEDICAL (GENERAL) HISTORY Type Description Date Medical History history of nonsustained asym ptomatic ventricular tachycardia- 09/2012 RST low risk-Antecol Medical History nicotine addiction-1PPD from [age]Y, 07/2011 FEV1 3.0L (104%)/ratio 98% Medical History MDD/NGUYỄN/PTSD/chronic insomnia-follows [facility] Dr. Gallego Medical History hyperlipidemia 2B [...] 60) Medical History JORDAN-06/2009 NPSG c RDI 37-Qthtbj-xzojyqy could not tolerate CPAP Medical History hypertension-09/2015 [...] MRI/MRA brain, MRA carotids 10/12-10/15/2015 Hospitalization History [facility] ED-Flank pain, kidney stone 07/2018 Hospitalization History [facility] encephalopathy-UDS + wilmer zo only, [...] Name:Case Monet, 2021-06-25 1 1:45:00 AM, [address] [facility], , [place], [address], Insurance Providers Payer Name Payer Address Payer Phone Insured Name Patient Relati onship to Insured Coverage Start Date Coverage End Date MEDICARE COMPLETE [facility] [address] [address] [facility] [id number] LIDIA AGUIRRE self
--- OUTSIDE RECORDS SUMMARY | 2021-04-18 13:33 | CCD | Continuity of Care Document ---
Author Laura Thacker M.D. Organization Unknown Address [address] [place] [address] Phone [phone] Care Team Providers Care Banquet Captain Name Role Phone Case Monet M.D. AUTM [phone] Problems Active Problems Provider Date Migraine without aura, not refractory Julieta Vasquez M.D. On set: 12/18/2020 Chronic tension-type headache Julieta Vasquez M.D. Onset: 09/2020 Spondylolysis Julieta Vasquez M.D. Onset: 07/18/2020 Low back pain Julieta Vasquez M.D. Onset: 07/18/2020 Spondylolysis of cervical spine Julieta Vasquez M.D. Onset: 0 07/18/2020 Neck pain Julieta Vasquez M.D. Onset: 07/18/2020 Psychologic conversion disorder Julieta Vasquez M.D. Onset: 0 07/18/2020 History of cerebrovascular accident without residual deficit s Julieta Vasquez M.D. Onset: 07/18/2020 Malaise and fatigue Julieta Vasquez M.D. Onset: 07/18/2020 Skin sensation disturbance Julieta Vasquez M.D. Onset: 2020 Social History Type Date Description Comments Sex Unknown Tobacco Use Start: Unknown End: Unknown Patient is a former smoker Allergies and adverse reactions Active Allergies Criticality Reaction | Severity Comments Date Sulfamethoxazole / Trimethoprim Unable to assess criticality 07/18/2020 Medications Active Medications SIG Qnty Indications Ordering Provide r Date No Active Medications Unknown History Medications No Active Medications Unknown 09/2020 - 12/18/[address] Tablets [address] 1 by mouth twice a day 60tabs Julieta Vasquez M.D. 12/18/2020 - 03/05/2021 Immunizations Description No Information Available Vital Signs Date Vital Result Comment 04/29/2014 2:36pm BP Systolic 120 mmHg BP Diastolic 84 mmHg Heart Rate 72 /min Respiratory Rate 12 /min Height 68 inches 5'8" Weight 180.00 lb BMI (Body Mass Index) 27.4 kg/m2 [place] Body Weight 140 lb 03/18/2014 9:52am BP Systolic 130 mmHg BP Diastolic 82 mmHg Heart Rate 76 /min Respiratory Rate 12 /min Height 68 inches 5'8" Weight 170.00 lb BMI (Body Mass Index) 25.8 kg/m2 [place] Body Weight 140 lb Results Description No Information Available Procedures Date Code Description Status 03/05/2021 62590 Phone Evaluation/Management Phys ician 11-20 Mins Completed 12/23/2020 68241 MRI Brain W/O Contrast Completed 12/23/2020 78531 MRI Brain W/O Contrast Completed 12/23/2020 43102 Magnetic Resonance Angiogtaphy H ead W/O Contrast Material(S) Completed 12/23/2020 45954 Magnetic Resonance Angiogtaphy H ead W/O Contrast Material(S) Completed 12/18/2020 51737 Phone Evaluation/Management Phys ician 11-20 Mins Completed Medical Devices Description No Information Available Encounters Type Date Location Provider Dx Diagnosis Office Visit 03/05/2021 12:45p [place] G44.221 Chronic tension-type headache, intractable R20.2 Paresthesia of skin G43.009 Migraine w/o aura, not intra ctable, w/o status migrainosus R53.1 Weakness Z86.73 Prsnl hx of TIA (TIA), and c ereb infrc w/o resid deficits R20.0 Anesthesia of skin F44.4 Conversion disorder with mot or symptom or deficit M54.2 Cervicalgia M43.02 Spondylolysis, cervical mana on Office Visit 12/18/2020 3:00p Main office - [place] G44.221 Chronic tension-type headache, intractable G43.009 Migraine w/o aura, not intra ctable, w/o status migrainosus R20.0 Anesthesia of skin R53.1 Weakness Z86.73 Prsnl hx of TIA (TIA), and c ereb infrc w/o resid deficits F44.4 Conversion disorder with mot or symptom or deficit M54.2 Cervicalgia M43.02 Spondylolysis, cervical mana on M54.5 Low back pain M43.06 Spondylolysis, lumbar region Assessments Date Code Description Provider 03/05/2021 G44.221 Chronic tension-type headache, i ntractable Julieta Vasquez M.D. 03/05/2021 R20.2 Paresthesia of skin Julieta Vasquez M.D. 03/05/2021 G43.009 Migraine without aur a, not intractable, without status migrainosus Julieta Vasquez M.D. 03/05/2021 R53.1 Weakness Julieta Vasquez M.D. 03/05/2021 Z86.73 Personal history of transient ischemic attack (TIA), and cerebral infarction without residual deficits Julieta Vasquez M.D. 03/05/2021 R20.0 Anesthesia of skin Reyna Epstein 03/05/2021 F44.4 Conversion disorder with motor s ymptom or deficit Julieta Vasquez M.D. 03/05/2021 M54.2 Cervicalgia Julieta Vasquez M.D. 03/05/2021 M43.02 Spondylolysis, cervical region M lubna Vasquez M.D. 12/23/2020 G44.221 Chronic tension-type headache, i ntractable Mariel DaquanRocio clemons 12/23/2020 G44.221 Chronic tension-type headache, i ntractable MRI 12/23/2020 R20.2 Paresthesia of skin Mariel Daquan, Rocio 12/23/2020 R20.2 Paresthesia of skin MRI 12/23/2020 G43.009 Migraine without aur a, not intractable, without status migrainosus Mariel Daquan, MJosephDJoseph 12/23/2020 G43.009 Migraine without aur a, not intractable, without status migrainosus MRI 12/23/2020 R53.1 Weakness Mariel Jef Butt 12/23/2020 R53.1 Weakness MRI 12/23/2020 Z86.73 Personal history of transient ischemic attack (TIA), and cerebral infarction without residual deficits Mariel Butt M.D. 12/23/2020 Z86.73 Personal history of transient ischemic attack (TIA), and cerebral infarction without residual deficits MRI 12/18/2020 G44.221 Chronic tension-type headache, i ntractable Julieta Vasquez M.D. 12/18/2020 G43.009 Migraine without aur a, not intractable, without status migrainosus Julieta Vasquez M.D. 12/18/2020 R20.0 Anesthesia of skin Reyna Epstein 12/18/2020 R53.1 Weakness Julieta Vasquez M.D. 12/18/2020 Z86.73 Personal history of transient ischemic attack (TIA), and cerebral infarction without residual deficits Julieta Vasquez M.D. 12/18/2020 F44.4 Conversion disorder with motor s ymptom or deficit Julieta Vasquez M.D. 12/18/2020 M54.2 Cervicalgia Julieta Vasquez M.D. 12/18/2020 M43.02 Spondylolysis, cervical region M lubna Vasquez M.D. 12/18/2020 M54.5 Low back pain Julieta Vasquez M.D. 12/18/2020 M43.06 Spondylolysis, lumbar region Ce Vasquez M.D. Plan of Treatment No Information Available Functional Status Description No Information Available Mental Status Description No Information Available Referrals Refer to Dr Reason for Referral Status Appt Date Julieta Vasquez M.D. Created [facility] [address] [place] [address] [phone] Julieta Vasquez M.D. Created [facility] [address] [place] [address] [phone]
--- OUTSIDE RECORDS SUMMARY | 2021-04-18 13:33 | CCD | Continuity of Care Document ---
Author Laura Thacker M.D. Organization Unknown Address [address] [place] [address] Phone [phone] Care Team Providers Care Instructional Systems Designer Name Role Phone Case Monet M.D. AUTM [phone] Problems Active Problems Provider Date Migraine without [...] lb BMI (Body Mass Index) 27.4 kg/m2 [place] Body Weight 140 lb 03/18/2014 9:52am BP Systolic 130 mmHg BP Diastolic 82 mmHg Heart Rate 76 /min Respiratory Rate 12 /min Height 68 inches 5'8" Weight 170.00 lb BMI (Body Mass Index) 25.8 kg/m2 [place] Body Weight 140 lb Results Description No Information Available Procedures Date Code Description Status 03/05/2021 97980 Phone Evaluation/Management Phys ician 11-20 Mins Completed 12/23/2020 67953 MRI Brain W/O Contrast Completed 12/23/2020 66406 MRI Brain W/O Contrast Completed 12/23/2020 13640 Magnetic Resonance Angiogtaphy H ead W/O Contrast Material(S) Completed 12/23/2020 01105 Magnetic Resonance Angiogtaphy H ead W/O Contrast Material(S) Completed 12/18/2020 51788 Phone Evaluation/Management Phys ician 11-20 Mins Completed Medical Devices Description No Information Available Encounters Type Date Location Provider Dx Diagnosis Office Visit 03/05/2021 12:45p [place] G44.221 Chronic tension-type headache, intractable R20.2 Paresthesia of skin G43.009 Migraine w/o aura, not intra ctable, w/o status migrainosus R53.1 Weakness Z86.73 Prsnl hx of TIA (TIA), and c ereb infrc w/o resid deficits R20.0 Anesthesia of skin F44.4 Conversion disorder with mot or symptom or deficit M54.2 Cervicalgia M43.02 Spondylolysis, cervical mana on Office Visit 12/18/2020 3:00p Main office - [place] G44.221 Chronic tension-type headache, intractable G43.009 [...] Status Appt Date Julieta Vasquez M.D. Created [facility] [address] [place] [address] [phone] Julieta Vasquez M.D. Created [facility] [address] [place] [address] [phone]
--- OUTSIDE RECORDS SUMMARY | 2021-04-18 13:33 | CCD ---
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 Active confirmed 72495381 Problem Hyperlipidemia E78.5 Active confirmed 08584 004 Problem Hypothyroidism, unspecified E03.9 Active confirmed 62682724 Problem Osteoarthritis of both knees M17.0 Active confirme d 387433188 Problem IFG (impaired fasting glucose) R73.01 Active confir med 368171645 Problem Obesity E66.9 Active confirmed 702150349 Problem Nephrolithiasis N20.0 Active confirmed 9557 0007 Problem Osteoarthritis of spine with radiculopathy, thoracic regio n M47.24 Active confirmed 9807627 Problem Depression F32.9 Active confirmed 03297920 Problem 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 Active confirmed 161 604932 Problem PUD (peptic ulcer disease) K27.9 Active confirmed 79848710 Problem Essential (primary) hypertension I10 Active conf irmed 39154598 Problem Gastro-esophageal reflux disease without esophagitis K21.9 Active confirmed 556650375 Problem TIA (transient ischemic attack) G45.9 Active confi rmed 631495602 Problem JORDAN (obstructive sleep apnea) G47.33 Active confirm ed 01882345 Problem Herpes gingivostomatitis B00.2 Active confirmed 88497785 Problem Folic acid deficiency E53.8 Active confirmed 561094343 Problem Aortic root dilatation I77.810 Active confirmed 912989747 Problem Spondylosis of thoracic region without myelopath y or radiculopathy M47.814 Active confirmed 842982249 Problem Macrocytosis D75.89 Active confirmed 6051099 00 Problem Hx of colonic polyp Z86.010 Active confirmed 728488207 Problem Non-seasonal allergic rhinitis, unspecified trigger J30.89 Active confirmed 19547634 Problem Cervical spondylosis M47.812 Active confirmed 643193177 Problem Cervical cancer screening Z12.4 Active confirmed 796311578 Problem Anxiety F41.9 Active confirmed 36331240 Problem Insomnia G47.00 Active confirmed 644690487 Problem Other chronic pain G89.29 Active confirmed 8 3933548 Problem Breast cancer screening Z12.39 Active confirmed 912081503 Problem Migraine headache G43.909 Active confirmed 3 3657824 Problem Renal cyst N28.1 Active confirmed 425981993 Problem Chronic pain syndrome G89.4 Active confirmed 011307386 Problem Encounter for screening for lung cancer Z12.2 Active confirmed 520303004 Problem Burning sensation of vulva N94.89 Active confirmed 853217310 ALLERGIES Allergen (clinical drug ingredient) Drug/Non Drug Allergy do cumented on EMR Reaction Allergy Type Onset Date Status atorvastatin Lipitor([facility] Code:[address]-86) lips tingle/numbness D rug Allergy Active Sulfa (for allergy use only) Anaphylaxis Drug Allergy Active tizanidine Tizanidine HCl([facility] Code:[address]-81) Rash Drug All ergy Active IV dye allergic per pt Non Drug Allergy Act alana Talwin Rash Drug Allergy Active Statins (for Allergy Use Only) face numb/ tingles Drug All ergy Active ENCOUNTERS from 1960 to 2021-02-20 Encounter Location Date Provider Diagnosis [place] [address] [facility] [phone] [place] [address] Feb, Case Monet IMMUNIZATIONS Vaccine Route Administration [...] Education Language: Question Answer Notes Languages spoken: Maori Moravian: Question Answer Notes Moravian 24 Taoism Sexual Hx: Question Answer Notes Had sex [...] Notes Start Da te End Date Status Tums Ultra 1000 1000 MG 1 tablet Orally Once a day p rn LAXMI symptoms for 30 day(s) Active Clopidogrel Bisulfate 75 MG TAKE ONE TABLET BY MOUTH E VERY DAY Orally once daily for 30 days Active Carafate 1 GM 1 tablet on an empty stomach Orally Twice a day for 3 0 day(s) Active Levothyroxine Sodium 25 MCG 1 tablet Orally Once a day Active Clopidogrel Bisulfate 75 MG TAKE ONE TABLET BY MOUTH E VERY DAY Orally once daily Active Rosuvastatin Calcium 20 MG 1 tablet Orally Once a day for 90 day(s) Active Albuterol Sulfate (2.5 MG/3ML) 0.083% 3 ml as needed I nhalation every 6 hrs as needed Apr, Active traZODone HCl 100 MG 1 tab Orally at bedtime Active Gabapentin 100 MG 1 capsule Orally tid for 30 day(s) Active Valtrex 500 MG 2 tablets Orally BID x 1 day with flare for 1 dose(s) Active Belbuca 75 MCG 1 film to the gum [place] Once a day for 30 Days Feb, Active diazePAM 10 MG 1/2 tablet Orally at bedtime Active Diclofenac Sodium 1 % 4 gm Transdermal qid to B knees for 30 days Active Nebulizer - as directed orally Daily for 999 days Apr, Active Vitamin D 2000 UNIT 1 tablet Orally daily for 90 day(s) Active Nebulizer/Tubing/Mouthpiece - as directed topically ev cirilo 6 hours as needed for 30 Days Apr, Active Folic Acid 2 MG 1 tablet Orally daily Active [place] Nasal [place] 0.65 % 2 sprays in each nostril as needed Nasally TID for 30 Days Jun, Active Liraglutide 18 MG/3ML 0.6 Subcutaneous daily for 90 day(s) Feb, Active Carvedilol 12.5 MG 1 tab Orally Twice a day for 90 day(s) Active Telmisartan 20 MG 1 tablet Orally bid for 90 day(s) Active Olopatadine HCl 0.1 % 1 drop into affected eye Oph thalmic Twice a day for 30 day(s) Active Pantoprazole Sodium 40 MG 1 tablet Orally bid for 30 days Active Lidocaine 5 % 1 application to [...] Information RESULTS No Results REASON FOR VISIT pain medication MEDICAL (GENERAL) HISTORY Type Description Date Medical History history of nonsustained asym ptomatic ventricular tachycardia- 09/2012 RST low risk-Antecol Medical History nicotine addiction-1PPD from [age]Y, 07/2011 FEV1 3.0L (104%)/ratio 98% Medical History MDD/NGUYỄN/PTSD/chronic insomnia-follows [facility] Dr. Gallego Medical History hyperlipidemia 2B Medical [...] 60) Medical History JORDAN-06/2009 NPSG c RDI [id number]-volaytg could not tolerate CPAP Medical History hypertension-09/2015 [...] MRI/MRA brain, MRA carotids 10/12-10/15/2015 Hospitalization History [facility] ED-Flank pain, kidney stone 07/2018 Hospitalization History [facility] encephalopathy-UDS + wilmer zo only, trazadone/diazepam dose [...] in each nostril Nasally Once a day Tums Ultra 1000 1000 MG 1 tablet Orally Once a day p rn LAXMI symptoms for 30 day(s) traZODone HCl 100 MG 1 tab Orally at bedtime Carafate 1 GM 1 tablet on an empty stomach Orally Twice a day for 30 day(s) Levothyroxine Sodium 25 MCG 1 tablet Orally Once a day [place] 75 MCG 1 film to the gum Bucally Once a day for 30 Days Feb, Rosuvastatin Calcium 20 MG 1 tablet Orally Once a day for 90 day (s) Diclofenac Sodium 1 % 4 gm Transdermal qid to B knees for 30 day s Lidocaine 5 % 1 application to affected ar ea as needed Externally Three times a day for 30 days Gabapentin 100 MG 1 capsule Orally tid for 30 day(s) Pantoprazole Sodium 40 MG 1 tablet Orally bid for 30 days Liraglutide 18 MG/3ML 0.6 Subcutaneous daily for 90 day(s) 2020 Clopidogrel Bisulfate 75 MG TAKE ONE TABLET BY MOUTH E DAY Orally once daily diazePAM 10 MG 1/2 tablet Orally at bedtime Carvedilol 12.5 MG 1 tab Orally Twice a day for 90 day(s) Valtrex 500 MG 2 tablets Orally BID x 1 day with flare for 1 do se(s) Telmisartan 20 MG 1 tablet Orally bid for 90 day(s) Folic Acid 2 MG 1 tablet Orally daily Next Appt Details Provider Name:Case Monet, 2021-06-25 1 1:45:00 AM, [address] [facility], , [place], [address], Insurance Providers Payer Name Payer Address Payer Phone Insured Name Patient Relati onship to Insured Coverage Start Date Coverage End Date MEDICARE COMPLETE [facility] [address] [address] [facility] [phone] LIDIA AGUIRRE self
--- OUTSIDE RECORDS SUMMARY | 2021-04-18 13:33 | CCD | Continuity of Care Document ---
Author Author Laura OMER N.P. Organization Unknown Address [address] [place] [address] Phone [phone] Care Team Providers Care Restrictive Preparation Operator Name Role Phone [facility] M.D. [facility] [phone] Problems Description No Information Available Social History [...] lb BMI (Body Mass Index) 33.9 kg/m2 [place] Body Weight 140 lb Weight 101.153 kg BSA (Body Surface Area) 2.14 m2 10/22/2020 9:38am BP Systolic 118 mmHg BP Diastolic 62 mmHg Heart Rate 61 /min O2 % BldC Oximetry 95 % Weight 221.25 lb Weight 100.359 kg Results Description No Information Available Procedures Date Code Description Status 10/22/2020 10869 Office/Outpatient Established Lo w MDM 20-29 Min Completed Medical Devices Description No Information Available Encounters Type Date Location Provider Dx Diagnosis Office Visit 10/22/2020 9:45a [facility] Hudson Omer, N.P. G47.33 Obstructive sleep apnea (adult) (pediatr ic) Assessments Date Code Description Provider 03/13/2021 G47.33 Obstructive sleep apnea (adult) (pediatric) Sharon Omer, N.P. 10/22/2020 G47.33 Obstructive sleep apnea (adult) (pediatric) Sharon Omer, N.P. Plan of Treatment Future Appointment(s):* 03/15/2022 2:45 pm - Sharon Omer, N.PJoseph at [facility] 03/13/2021 - Sharon Omer, N.P.* G47.33 [...] supply order has been sent to the [facility]. * Follow up:* 1. Follow up in one year to reassess CPAP compliance or sooner should problems develop. Functional Status Functional Condition Comment Date Status Independent with all ADL's Activ e Mental Status Description No Information Available Referrals Description No Information Available
--- OUTSIDE RECORDS SUMMARY | 2021-04-18 13:33 | CCD | Continuity of Care Document ---
Author Author Laura OMER N.P. Organization Unknown Address [address] [place] [address] Phone [phone] Care Team Providers Care Vocational Services Specialist Name Role Phone Case Mon[facility] [phone] Problems Description No Information Available Social History [...] lb BMI (Body Mass Index) 33.9 kg/m2 [place] Body Weight 140 lb Weight 101.153 kg BSA (Body Surface Area) 2.14 m2 10/22/2020 9:38am BP Systolic 118 mmHg BP Diastolic 62 mmHg Heart Rate 61 /min O2 % BldC Oximetry 95 % Weight 221.25 lb Weight 100.359 kg Results Description No Information Available Procedures Date Code Description Status 10/22/2020 90878 Office/Outpatient Established Lo w MDM 20-29 Min Completed Medical Devices Description No Information Available Encounters Type Date Location Provider Dx Diagnosis Office Visit 10/22/2020 9:45a [facility] Pulmonary/Thoracic Hudson Omer, N.P. G47.33 Obstructive sleep apnea (adult) (pediatr ic) Assessments Date Code Description Provider 03/13/2021 G47.33 Obstructive sleep apnea (adult) (pediatric) Sharon Omer, N.P. 10/22/2020 G47.33 Obstructive sleep apnea (adult) (pediatric) Sharon Omer, N.P. Plan of Treatment Future Appointment(s):* 03/15/2022 2:45 pm - Sharon Omer, N.PJoseph at [facility] Pulmonary/Thoracic 03/13/2021 - Sharon Omer, N.P.* [...] supply order has been sent to the [facility]. * Follow up:* 1. Follow up in one year to reassess CPAP compliance or sooner should problems develop. Functional Status Functional Condition Comment Date Status Independent with all ADL's Activ e Mental Status Description No Information Available Referrals Description No Information Available
--- OUTSIDE RECORDS SUMMARY | 2021-04-18 13:33 | CCD ---
Author Author [facility] Organization 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 Active confirmed 79361761 Problem Hyperlipidemia E78.5 Active confirmed 96495 004 Problem Hypothyroidism, unspecified E03.9 Active confirmed 23982969 Problem Osteoarthritis of both knees M17.0 Active confirme d 143653833 Problem IFG (impaired fasting glucose) R73.01 Active confir med 551501904 Problem Obesity E66.9 Active confirmed 629219197 Problem Nephrolithiasis N20.0 Active confirmed 9557 0007 Problem Osteoarthritis of spine with radiculopathy, thoracic regio n M47.24 Active confirmed 1605486 Problem Depression F32.9 Active confirmed 01908825 Problem 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 Active confirmed 161 602355 Problem PUD (peptic ulcer disease) K27.9 Active confirmed 75849962 Problem Essential (primary) hypertension I10 Active conf irmed 62369039 Problem Gastro-esophageal reflux disease without esophagitis K21.9 Active confirmed 657977048 Problem TIA (transient ischemic attack) G45.9 Active confi rmed 135174095 Problem JORDAN (obstructive sleep apnea) G47.33 Active confirm ed 07064993 Problem Herpes gingivostomatitis B00.2 Active confirmed 84336886 Problem Folic acid deficiency E53.8 Active confirmed 541881753 Problem Aortic root dilatation I77.810 Active confirmed 832928282 Problem Spondylosis of thoracic region without myelopath y or radiculopathy M47.814 Active confirmed 759415754 Problem Macrocytosis D75.89 Active confirmed 4306801 00 Problem Hx of colonic polyp Z86.010 Active confirmed 702940416 Problem Non-seasonal allergic rhinitis, unspecified trigger J30.89 Active confirmed 51585555 Problem Cervical spondylosis M47.812 Active confirmed 544939756 Problem Cervical cancer screening Z12.4 Active confirmed 447914029 Problem Anxiety F41.9 Active confirmed 02114511 Problem Insomnia G47.00 Active confirmed 877878987 Problem Other chronic pain G89.29 Active confirmed 8 6920254 Problem Breast cancer screening Z12.39 Active confirmed 855330937 Problem Migraine headache G43.909 Active confirmed 3 9515094 Problem Renal cyst N28.1 Active confirmed 391862393 Problem Chronic pain syndrome G89.4 Active confirmed 765325708 Problem Encounter for screening for lung cancer Z12.2 Active confirmed 112042312 Problem Burning sensation of vulva N94.89 Active confirmed 966240044 ALLERGIES Allergen (clinical drug ingredient) Drug/Non Drug Allergy do cumented on EMR Reaction Allergy Type Onset Date Status Sulfa (for allergy use only) Anaphylaxis Non Drug Allergy Active atorvastatin Lipitor(NDC Code:[address]-88) lips tingle/numbness D rug Allergy Active tizanidine Tizanidine HCl(ND Code:[address]-82) Rash Drug All ergy Active IV dye allergic per pt Non Drug Allergy Act alana Statins (for Allergy Use Only) face numb/ tingles Non Drug Allergy Active Talwin Rash Drug Allergy Active ENCOUNTERS from 1960 to 2021-02-18 Encounter Location Date Provider Diagnosis [facility] [phone] [place] [address] Feb, Diana Morin IMMUNIZATIONS Vaccine Route Administration Date Status Meningococcal [...] Education Language: Question Answer Notes Languages spoken: [place] Scientology: Question Answer Notes Scientology 24 Denominational Sexual Hx: Question Answer Notes Had sex [...] Notes Start Da te End Date Status Albuterol Sulfate (2.5 MG/3ML) 0.083% 3 ml as needed I nhalation every 6 hrs as needed Apr, Active Lidocaine 5 % 1 application to affected ar ea as needed Externally Three times a day for 30 days Active Vitamin D 2000 UNIT 1 tablet Orally daily for 90 day(s) Active traZODone HCl 100 MG 1 tab Orally at bedtime for 30 Days Active Nebulizer - as directed orally Daily for 999 days Apr, Active diazePAM 10 MG 1 tab Orally twice a day Active Nebulizer/Tubing/Mouthpiece - as directed topically ev cirilo 6 hours as needed for 30 Days Apr, Active Folic Acid 2 MG 1 tablet Orally daily for 30 days Active Carvedilol 12.5 MG 1 tablet with food Orally Twice a day for 90 Active [place] Nasal [place] 0.65 % 2 sprays in each nostril as needed Nasally TID for 30 Days Jun, Active Chlorthalidone 25 MG 1 tablet in the morning with food Orally Once a day for 90 day(s) Oct, Active Valtrex 500 MG 2 tablets Orally BID x 1 day with flare for 1 dose(s) Active Ondansetron 4 MG 1 tablet on the tongue and a llow to dissolve Orally bid as needed for 30 day(s) duplicate Jun, Not-Taking Zofran 4 MG 1 tab Orally bid prn nausea for 30 day(s) Active Carafate 1 GM/10ML 10 ml on an empty stomach Orally Daily for 30 day(s) Aug, Not-Taking Rosuvastatin Calcium 40 MG 1/2 tablet Orally Once a day Not-Taking Montelukast Sodium 10 MG 1 tablet Orally at bedtime for 30 days Active Olopatadine HCl 0.1 % 1 drop into affected eye Oph thalmic Twice a day for 30 day(s) Active Cyclobenzaprine HCl 10 MG 1 tablet as needed Orally Three times a day for 30 Active Tums Ultra 1000 1000 MG 1 tablet Orally Once a day p rn LAXMI symptoms for 30 day(s) Active Diclofenac Sodium 1 % 4 gm Transdermal qid to B knees for 30 days Active Nortriptyline HCl 25 MG 1 capsule Orally Qam for 30 day(s) Oct, Not-Taking PARoxetine HCl 10 MG 1 tablet in the morning Orally Once a day f or 30 day(s) Aug, Not-Taking Clopidogrel Bisulfate 75 MG TAKE ONE TABLET BY MOUTH E VERY DAY Orally once daily for 30 days Active Nasacort Allergy 24HR 55 MCG/ACT 1 puff in each nostril Nasally Onc e a day Active Lansoprazole 30 MG 1 capsule before a meal Orally bid for 30 day (s) Aug, Active Telmisartan 20 MG 1/2 tablet Orally bid for 90 day(s) Not-Taking Levothyroxine Sodium 25 MCG 1 tablet Orally Once a day for 90 day(s) Active Blood Pressure Kit - as directed _ up to 3x/day as directed Active Gabapentin 100 MG 1 capsule Orally tid for 30 day(s) Not-Taking PROCEDURES No Information RESULTS No Results REASON FOR VISIT refill MEDICAL (GENERAL) HISTORY Type Description Date Medical History history of nonsustained asym ptomatic ventricular tachycardia- 09/2012 RST low risk-Antecol Medical History nicotine addiction-1PPD from [age]Y, 07/2011 FEV1 3.0L (104%)/ratio 98% Medical History MDD/NGUYỄN/PTSD/chronic insomnia-follows wi Dr. Gallego Medical History hyperlipidemia 2B Medical History dyspepsia-small hiatal herni a, moderate chronic gastritis/small gastric ulcer, - H pylori by 08/2014 EGD-W//02/09/16 EGD-small HH, esophagela biopsy s metaplasia/eosinophil and [...] 60) Medical History JORDAN-06/2009 NPSG c RDI 60-Qqaprl-zcauckl could not tolerate CPAP Medical History hypertension-09/2015 [...] MRI/MRA brain, MRA carotids 10/12-10/15/2015 Hospitalization History [facility] ED-Flank pain, kidney stone 04/07/2018 Hospitalization History [facility] encephalopathy-UDS + wilmer zo only, [...] Medication Name Sig Start Date Stop Date Clopidogrel Bisulfate 75 MG TAKE ONE TABLET BY MOUTH E DAY Orally once daily for 30 days Next Appt Details Provider Name:Case Monet, 2021-02-19 0 4:00:00 PM, [address], , [place], [address], Insurance Providers Payer Name Payer Address Payer Phone Insured Name Patient Relati onship to Insured Coverage Start Date Coverage End Date MEDICARE COMPLETE [facility] [address] [address] [facility] [phone] LIDIA AGUIRRE self
--- OUTSIDE RECORDS SUMMARY | 2021-04-18 13:33 | CCD ---
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 Active confirmed 19910755 Problem Hyperlipidemia E78.5 Active confirmed 80087 004 Problem Hypothyroidism, unspecified E03.9 Active confirmed 82469465 Problem Osteoarthritis of both knees M17.0 Active confirme d 023377073 Problem IFG (impaired fasting glucose) R73.01 Active confir med 907782782 Problem Obesity E66.9 Active confirmed 617129062 Problem Nephrolithiasis N20.0 Active confirmed 9557 0007 Problem Osteoarthritis of spine with radiculopathy, thoracic regio n M47.24 Active confirmed 8380981 Problem Depression F32.9 Active confirmed 53494904 Problem 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 Active confirmed 161 328255 Problem PUD (peptic ulcer disease) K27.9 Active confirmed 31655119 Problem Essential (primary) hypertension I10 Active conf irmed 17088180 Problem Gastro-esophageal reflux disease without esophagitis K21.9 Active confirmed 691450537 Problem TIA (transient ischemic attack) G45.9 Active confi rmed 498564094 Problem JORDAN (obstructive sleep apnea) G47.33 Active confirm ed 72176034 Problem Herpes gingivostomatitis B00.2 Active confirmed 70823273 Problem Folic acid deficiency E53.8 Active confirmed 547916947 Problem Aortic root dilatation I77.810 Active confirmed 821580402 Problem Spondylosis of thoracic region without myelopath y or radiculopathy M47.814 Active confirmed 082835804 Problem Macrocytosis D75.89 Active confirmed 4536756 00 Problem Hx of colonic polyp Z86.010 Active confirmed 228392469 Problem Non-seasonal allergic rhinitis, unspecified trigger J30.89 Active confirmed 47198797 Problem Cervical spondylosis M47.812 Active confirmed 350948638 Problem Cervical cancer screening Z12.4 Active confirmed 921815942 Problem Anxiety F41.9 Active confirmed 35572541 Problem Insomnia G47.00 Active confirmed 809956150 Problem Other chronic pain G89.29 Active confirmed 8 3890054 Problem Breast cancer screening Z12.39 Active confirmed 118443087 Problem Migraine headache G43.909 Active confirmed 3 5021922 Problem Renal cyst N28.1 Active confirmed 717782355 Problem Chronic pain syndrome G89.4 Active confirmed 278494753 Problem Encounter for screening for lung cancer Z12.2 Active confirmed 626963705 Problem Burning sensation of vulva N94.89 Active confirmed 444370680 ALLERGIES Allergen (clinical drug ingredient) Drug/Non Drug Allergy do cumented on EMR Reaction Allergy Type Onset Date Status atorvastatin Lipitor([facility] Code:[address]-97) lips tingle/numbness D rug Allergy Active Sulfa (for allergy use only) Anaphylaxis Drug Allergy Active tizanidine Tizanidine HCl(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 ; Hx of colonic polyp Z86.010 ; IFG (impaired fasting glucose) R73.01 ; Annual physical exam Z00.00 ; Encounter for screening for lung cancer Z12.2 ; 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 ; Nephrolithiasis N20.0 ; Right flank pain R10.9 ; JORDAN (obstructive sleep apnea) G47.33 ; Essential (primary) hypertension I10 ; Fatigue R53.83 ; Cervical spondylosis M47.812 ; Renal cyst N28.1 ; Osteoarthritis of both knees M17.0 ; Obesity E66.9 ; Depression F32.9 ; Non- seasonal allergic rhinitis, unspecified trigger J30.89 ; 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 ; Macrocytosis D75.89 ; PUD (peptic ulcer disease) K27.9 ; Gastro-esophageal reflux disease without esophagitis K21.9 ; Aortic root dilatation I77.810 ; Microscopic hematuria R31.29 ; Insomnia G47.00 ; Migraine headache G43.909 ; TIA (transient ischemic attack) G45.9 ; Breast cancer screening Z12.39 ; Hypothyroidism, unspecified E03.9 ; Hyperlipidemia E78.5 ; Folic acid deficiency E53.8 ; Herpes gingivostomatitis B00.2 and Cervical cancer screening Z12.4 IMMUNIZATIONS Vaccine Route Administration Date Status Meningococcal [...] Education Language: Question Answer Notes Languages spoken: Malawian Jain: Question Answer Notes Jain 24 Sikh Sexual Hx: Question Answer Notes Had sex [...] last smoked? 1-5 years REASON FOR REFERRAL from 1960 to 2021-02-23 Reason colon Diagnosis 1 Hx of colonic polyp (Z86.010 ) Referral Organization [facility] Referring Provider First Name Case Referring Provider Last Name Chiki Referring Provider Specialty Family Medicine Referred Provider Denver Hernández Referred Provider Specialty Gastroenterology Referral Priority Routine General Notes Isidra Appiah 02/20/2021 6:42:09 PM > REFERRAL FAXED VITAL SIGNS Weight 222.4 lbs Feb, Weight-kg 100.88 kg Feb, Height 67.75 in Feb, BMI 34.06 kg/m2 Feb, Heart Rate 77 /min Feb, Respiratory Rate 18 /min Feb, Temperature 99.0 degrees Fahrenheit Feb, Oximetry 95% Feb, Blood pressure systolic 128 mm Hg Feb, Blood pressure diastolic 72 mm Hg Feb, MEDICATIONS Medication SIG (Take, Route, Frequency, Duration) [...] Twice a day for 90 day(s) Active [facility] Nasal [place] 0.65 % 2 sprays in each nostril [...] Information RESULTS No Results REASON FOR VISIT f/u c Dr. Monet next avaialable MEDICAL (GENERAL) HISTORY Type Description Date Medical History history of nonsustained asym ptomatic ventricular tachycardia- 09/2012 RST low risk-Antecol Medical History nicotine addiction-1PPD from [age]Y, 07/2011 FEV1 3.0L (104%)/ratio 98% Medical History MDD/NGUYỄN/PTSD/chronic insomnia-follows [facility] Dr. Gallego Medical History hyperlipidemia 2B [...] 60) Medical History JORDAN-06/2009 NPSG c RDI 67-Ncwtih-yctehnr could not tolerate CPAP Medical History hypertension-09/2015 [...] MRI/MRA brain, MRA carotids 10/12-10/15/2015 Hospitalization History [facility] ED-Flank pain, kidney stone 07/2018 Hospitalization History [facility] encephalopathy-UDS + wilmer zo only, trazadone/diazepam [...] Feb, Chronic pain syndrome (ICD-10 - G89.4) on bill 100 TId, [place] 75 qAM main pain generator: thoracic spondylosis c radicular/myofascial pain //no NSAIDs given h/o NSAID-induced PUD, on clopid and has HTN C: [place] to 75 BID, retry dulox 02/19/21 patient assumes risk of oversedation/ c bup retrial (although SAFEST opioid and she feels this class is ONLY one that helps her); + [place] 75 BID (oversedation c Butrans patch) 06/30/20 agrees to retry bill 100 TID (given tolerated and beneficial in past) 05/19/20 encoruaged to try dulox 03/24/20 changed nor 50 QHS (was for migraine px) to dulox 30 BID (which she did not start) 03/06/20 Butrans 5 patch held due to "oversedation" as per Hosp 02/28/20 Butrans 5 started as "safer" alternative 12/11/19 given -7SDS, oxycodone 5 BID STOPPED 02/12/19 SDS appropriate + for oxycodone and temazepam (2 Valium from Gallego) 12/15/18 increased 5 BID to 7.5 BID given subacute flare, + lido 4% o TID (no coverage for Lidoderm) and continue diclo 1.5% QID and increase venla as per MDD 04/2018 ML DJD T 11/20 > T 10/20; therefore, referred to Jana[facility] THOMPSONI, but px CX apt 12/2014 -CCP, HLA -B27, CRP <0.31, Shari 1:80 speckled-father, sister c /Crohn's Feb, DJD (degenerative joint disease), thoracic (ICD- 10 - M51.34) Feb, Hx of colonic polyp (ICD-10 - Z86.010) repeat colon due 08/2017-W 3 1D uncles c colon cancer (3 mother's brothers c colon cancer) 02/19/21 patient finally consents to repeat colon c W Feb, IFG (impaired fasting glucose) (ICD-10 - R73.01) C: severe N c met XR 500, dulag 0.75 no DM in 1DR (mother was "borderline") 11/18/20 5.9; ergo, 02/19/21 + monson 0.6 09/21/19 stopped dulag 0.75 given px convinced N/V is 2 dulag 05/2019 6.0 c NEEL-IR 4 (102, 16); therefore, + dulag 0.75 q7D given severe intolerance to LD met XR 01/2019 5.7 06/2018 6.3; therefore, encouraged to restart met XR 500 AC dinner, but again stopped 2 N 02/2018 5.9 10/2017 6.4 c NEEL-IR 6 (105/23); therefore, + metformin XR 500 AC dinner (09/2017 referred to Nutrition, but patient CX) 12/2016 6.1 02/2018 10 12/2016 8 05/2013 5 01/2011 BENSON/creatinine 8 Feb, Annual physical exam (ICD-10 - Z00.00) Feb, Encounter for screening for lung cancer (ICD-10 - Z12.2) repeat LD CT chest 04/202105/12/20 CTA chest WNL 09/14/19 CTA chest WNL x scattered RL, RML opacities cw PN 07/[address] chest Feb, 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 Mainly intermittent R V2 distribution "numbness"-favor moreso R V2 TN. Refer per patient request for Neuro opinion. Feb, Nephrolithiasis (ICD-10 - N20.0) No recurrent symptoms of stone passage 05/2017 CT AP c stable L stone, R s stone continue to avoid topir given h/o recurrent B nephrolithiasis Feb, Right flank pain (ICD-10 - R10.9) 08/21/20 MRI ABD s: WNL (no pancreatic cyst) 06/04/20 CT AP stone protocol intrarenal NO 4 mm 05/19/20 3D recurrent R flank pain c urine dip 50 blood; therefore, UA/UCX and check CT AP stone protocol (of note 05/01, 05/12/20 CTA chest and 04/09/20 CT chest ALL WNL) Feb, JORDAN (obstructive sleep apnea) (ICD-10 - G47.33) Encouraged compliance c CPAP (using since 08/2020) 03/17/20 given severe fatigue, 03/24/20 rechecked HST: LUIS ENRIQUE 44, SaO2 to 80%; therefore, urgently referred to PA for repeat NPSG (apt 07/07/20 115 PM) Feb, Essential (primary) hypertension (ICD-10 - I10) Stable on carve 12 BID, telmi 20 BID 05/19/20 telmi 10 BID to 20 BID given BP 140s/90s c BID BP cb in 10D 05/01/20 amlo 2.5 to telmi 10 BID (05/17 20 BID) 03/06/20 carve 12 BID reduced to 6 BID given SB during admission for encephalopathy 05/2019 4.2, 2.2, 0.9 06/2018 4.0, 2.2, 0.9 12/2015 CTD 12.5 QD started by [facility] 11/2015 restarted carvedilol 12.5 BID 10/2015 carvedilol held during hospitalization for TIA, then restated given el evated BPs 11/2014 increased to 12.5 BID 04/08/14 increased to 6.25 BID 03/18/14 changed Norvasc 5 (started 03/18/[address] Vasquez) to carvedililol 3.25 BID given hypertension, palpitations, h/o asx NSVT November 2010 and with her blood pressure monitor with mean blood pressure 120/79 and minimal 95/July normal 24 hours urine for metanephrines, VMA 01/30/2014 EKG normal sinus rhythm 75 bpm, iRBBB, V1-V4 inverted T waves similar to 08/29/2012 Feb, Fatigue (ICD-10 - R53.83) favor 2 polypharmacy, unpalliated SA 03/17/20 per px, no improvement of fatigue c meds held as per Hosp c despite 12H sleep; therefore, repeat HST Feb, Cervical spondylosis (ICD-10 - M47.812) as per thoracic Contingency: CESIA/TESI 05/[address] Mason for OMT given chronic paraCX/THOR spasm given stable xray, minimal radic sx 06/11/19 cervical xray: mild C47 DSN, mild B C46 NFN s change c fl/ext Feb, Renal cyst (ICD-10 - N28.1) Patient REFUSES URology opinion regarding L renal cyst as cause of pain-patient does NOT feel it is cause (I doubt it is also) 03/06/20 CT AP L mid-upper pole 55 mm cyst (09/14/19 CTA chest 50)-felt to "[place] type I simple cyst" and "no further fu recommended", BUT enlargement COULD cause L abdominal pain Feb, Osteoarthritis of both knees (ICD-10 - M17.0) on diclo 1% QID worsened by antalgic gait 2 L foot EV derformity Contingency: repeat MRI, arthoscopic LMT repair 07/17/19 R knee 40 TA; c minimal improvement p 10D; therefore, ordered MRI which px then CX 06/11/19 R knee: mild tricomp narrowing, small jt effusion 12/2016 MRI R knee: trizonal lateral meniscal tearing, grade IV lateral PFCM, low volume pop cyst by 12/29/16 MRI NCOG Feb, Obesity (ICD-10 - E66.9) Encouraged weight loss-defer Qnexa/Contrave/Belviq 2 HTN, ho TIA/VT rx as per IFG Contingency: bariatric Feb, Depression (ICD-10 - F32.9) Stable on fluox 30 (per Lashonda) 06/2019 Gallego changed venla XR 150 to fluox [address] GallegoXujexd-Viwqhvqq-Fhdjegtzlm Feb, Non-seasonal allergic rhinit is, unspecified trigger (ICD-10 - J30.89) Stable on TC 1 qAM, monte 10 QHS (02/2020 cet 10 held fatigue) symptomatic to dogs-worse since pomeranian poddle since 04/201807/27/18 changed FP to Nasacort 2 qAM and pau 10-D 240 to cetir 10, and + olopat 0.1 BID and monte 10 QHS Feb, Post-splenectomy (ICD-10 - Z90.81) 06/2018 PSV-23/Menveo 06/2013 Prevnar 13 Feb, Macrocytosis (ICD-10 - D75.89) c mild erythro, leukocytosis 11/18/20 16.5, 98. 7.1, 259 06/2019 16, 99, EPO 11, r38/1.5 01/2019 15.9, 102 10/2018 16.8, 100 06/2018 stable at 16.5, 99, r 39/1.3 B12/folate as per folate 01/2019 sIFE s MCB 05/2017 normal SPEP Feb, PUD (peptic ulcer disease) (ICD-10 - K27.9) Stable on panto 40 BID, sulcraf BID Continue off ALL po NSAIDs 01/2017 started Tums 1000 QD prn LAXMI 02/09/16 EGD-small HH, esophagela biopsy s metaplasia/eosinophil and lympocyte sskjrxbwmgvq-K-Dncsumrq and Phenergan stopped by Dr. Deleon 01/2016 given UGI c punctate duodenal ulcer, attempted to change to Dexilant but co-pay is too expensive (cannot use coupon given MCR); therefore, proceed to EGD holding Plavix given intractable pain and favor previous episodes were complex migraine rather than TIA 11/2015 increased Protonix to AC BID and Carafate BID to AC/QHS (QID) 10/31/15 Dr. Hernández apt-elected to hold EGD x 6M (04/2016) given 10/2015 ? TIA (will need to hold Plavix 5D prior) 08/2015 omeprazole 40 BID changed to Protonix 40 BID 2 Plavix addition 07/2015 normal HIDA c EF 92% (10/2009 both normal); therefore, referred to W to repeat EGD; but patient NS for 08/01/15 apt, but patient states RS for 10/30/1506/2015 normal RUQ US 03/2015 given recurrent dyspepsia/nausea despite Prilosec 40 BID, increased Carafate qhs to 1 QID 08/2014 EGD c moderate chronic gastritis c chemical gastritis features, gastric ulcer, - H egwgxs-J-rkgtcunlp 10/2014 Prilosec 40 QD increased to BID and stopped Naprosyn 500 BID 01/2016 - H pylori 09/[address] A/P c IV/po x L 4 mm intrarenal c Feb, Gastro-esophageal reflux dis ease without esophagitis (ICD-10 - K21.9) treatment/EGD as per PUD Feb, Aortic root dilatation (ICD-10 - I77.810) Patient remains asymptomatic repeat TTE 05/202206/12/20 AA 41/root 44 12/2017 TTE mildly dilated AR, AA, mild concentric LVH, grade 1 luciana Feb, Microscopic hematuria (ICD-10 - R31.29) No LUTs/gross heamturia 10/2017 4 RBCs, UCX NG 09/2017 normal cystoscopy-Dr. Horton 07/2017 established c [facility] Urology (Dr. Levin) 05/2017 CT AP stone protocol stable L mid calculus and stable B renal cysts Feb, Insomnia (ICD-10 - G47.00) on traz 100 and diazepam [address] Gallego strongly cautioned re regimen given JORDAN 03/07/20 [facility] hosp for ME-diazepam 10-20 to 5 QHS and traz 100 to 50 QHS Feb, Migraine headache (ICD-10 - G43.909) ondan 4 BID prn abortive px BB as per hypertension 03/24/20 nor 50 QHS to dulox 30 BID as per CPS 07/2016 Chiki readded topir 25 BID for migraine; but 04/2017 patient stopped on own c stable DUBON 12/26/15 increased ami 25 to 50 10/2015 carvedilol held as per hypertension and amitriptyline [address] Orellana Feb, TIA (transient ischemic attack) (ICD-10 - G45.9) No recurrent symptoms 12/18/15 MRI brain s , minimal volume loss 10/2015 L facial droop/numbness/dysarthria/UE weakness p N/headache c induced by car paint and was taking "super green tea" and gingko to lose weight-received tpa in ED, [facility] 8, felt by Dr. Anderson c/w TIA, asprin 81 changed to Plavix, normal MRI/MRA brain, MRA carotid Feb, Breast cancer screening (ICD-10 - Z12.39) 02/2019 B C1 mammogram 06/30/20, 02/19/21 gave mammo order Feb, Hypothyroidism, unspecified (ICD-10 - E03.9) mother c hypothyroidism, onset in 60s 11/18/20 1.5, 0.9 03/06/20 0.9, 1.0 on 25 10/2018 1.0, 0.9 on 25 10/2017 1.0, 0.9 12/2016 1.3, 1.0 12/2015 1.5, FT4 0.9 04/2015 2.0 01/2015 2.2, 0.8 on LT4 25 10/2014 5.4, given weight gain and fatigue, LT4 25 started 10/2013 1.5 prior to LT4 July 2011 TSH 0.9 Feb, Hyperlipidemia (ICD-10 - E78.5) intolerance to Lipitor, Zocor, Pravachol 40 11/18/20 102/78/97 off rosuva 20 for unknown reason; ergo, restarted 01/2019 65/61/113, 77, <0.3 02/2018 56/60/85 on rosuva 20 generic 05/2017 67/63/128, 54, <0.3 on Crestor 40 GABRIELA 07/2016 87/67/181 10/2014 62/58/157, CPK 71 on Crestor 40 06/2014 154/62/118, CPK 52 off x 1M given cost, therefore encouraged to restart and gave coupon 10/2013 55/73/58, CPK 49, CRP <0.3 on Crestor 40 08/2013 142/59/69, CPK 47 off statin, therefore restarted Crestor 10 qd (05/19 40 qd c coupon) 02/2013 patient stopped 2 cost 01/2013 107/57/78 on Crestor 5 qd 08/2012 134/50/89 on Crestor 5qd, patient refuses increase Crestor dose 12/2011 150/55/114, LDL size 21.7 therefore started Crestor 5 qhs 10/2017 normal LFTs TSH as per hypo Feb, Folic acid deficiency (ICD-10 - E53.8) hgb as per macro 11/18/20 755 05/2019 585 on 2 02/2018 578 01/2016 1006; therefore, decreased to 2 mg QD 08/2013 655 12/2011 538 on 2 mg BID 07/2011-271 on 1 mg daily therefore increased to 2 01/2011 RBC folate 278-prior to supplementation 10/2018 815 02/2018 767 12/2011 642 02/2011 B12 999 s supplement 01/2016 27%, 51 10/2014 22%, 11 s supplementation Feb, Herpes gingivostomatitis (ICD-10 - B00.2) Stable on Valtrex abortive rx Feb, Cervical cancer screening (ICD-10 - Z12.4) 02/2019 NILM PLAN OF TREATMENT Medication Medication Name Sig [...] MOUTH E VERY DAY Orally once daily Folic Acid 2 MG 1 tablet Orally daily Carvedilol 12.5 MG 1 tab Orally Twice a day for 90 day(s) Treatment Notes Assessment Notes Clinical Notes Obesity Encouraged weight lo ss-defer Qnexa/Contrave/Belviq 2 HTN, ho TIA/VTrx as per IFGContingency: bariatric Osteoarthritis of both knees on diclo 1% QIDworsened by antalgic gait 2 L foot EV derformityContingency: repeat MRI, arthoscopic LMT repair07/17/19 R knee 40 TA; c minimal improvement p 10D; therefore, ordered MRI which px then CX06/11/19 R knee: mild tricomp narrowing, small jt effusion12/2016 MRI R knee: trizonal lateral meniscal tearing, grade IV lateral PFCM, low volume pop cyst by 12/29/16 MRI NCOG Non-seasonal allergic rhinitis, unspecified trigger Stable on TC 1 qAM, monte 10 QHS (02/2020 cet 10 held fatigue)symptomatic to dogs-worse since pomeranian poddle since changed FP to Nasacort 2 qAM and pau 10-D 240 to cetir 10, and + olopat 0.1 BID and monte 10 QHS Depression Stable on fluox 30 ( per Lashonda)06/2019 Gallego changed venla XR 150 to fluox 20follows with Dr. GallegoKkrmjh-Moioltnr-Prcnsqevha Macrocytosis c mild erythro, leuk ocytosis11/18/20 16.5, 98. 7.1, 2592 16, 99, EPO 11, r38/1. 15.9, 1026 16.8, 1002 stable at 16.5, 99, r 39/1.3B12/folate as per folate01/2019 sIFE s MC normal SPEP Post-splenectomy 06/2018 PSV-23/Menveo 06/2013 Prevnar 13 Gastro-esophageal reflux disease without esophagitis treatment/EGD as per PUD PUD (peptic ulcer disease) Stable on nieto to 40 BID, sulcraf BIDContinue off ALL po NSAIDs01/2017 started Tums 1000 QD prn GER02/09/16 EGD-small HH, esophagela biopsy s metaplasia/eosinophil and lympocyte ysppvnpoovxj-F-Yirbozqy and Phenergan stopped by W01/2016 given UGI c punctate duodenal ulcer, attempted to change to Dexilant but co-pay is too expensive (cannot use coupon given MCR); therefore, proceed to EGD holding Plavix given intractable pain and favor previous episodes were complex migraine rather than TIA11/2015 increased Protonix to AC BID and Carafate BID to AC/QHS (QID)10/31/15 Dr. Hernández apt-elected to hold EGD x 6M (04/2016) given 10/2015 ? TIA (will need to hold Plavix 5D prior)08/2015 omeprazole 40 BID changed to Protonix 40 BID 2 Plavix addition07/2015 normal HIDA c EF 92% (10/2009 both normal); therefore, referred to W to repeat EGD; but patient NS for 08/01/15 apt, but patient states RS for normal RUQ US03/2015 given recurrent dyspepsia/nausea despite Prilosec 40 BID, increased Carafate qhs to 1 QI EGD c moderate chronic gastritis c chemical gastritis features, gastric ulcer, - H bazljm-U-oztdxbzdc 10/2014 Prilosec 40 QD increased to BID and stopped Naprosyn 500 BID01/2016 - H pylori09/[address] A/P c IV/po x L 4 mm intrarenal c Cervical cancer screening 02/2019 NILM Renal cyst Patient REFUSES URol ogy opinion regarding L renal cyst as cause of pain-patient does NOT feel it is cause (I doubt it is also)03/06/20 CT AP L mid- upper pole 55 mm cyst (09/14/19 CTA chest 50)-felt to "[place] type I simple cyst" and "no further fu recommended", BUT enlargement COULD cause L abdominal pain Cervical spondylosis as per thoracicCont ingency: CESIA/TES referred to Dr. Mason for OMT given chronic paraCX/THOR spasm given stable xray, minimal radic s06/11/19 cervical xray: mild C47 DSN, mild B C46 NFN s change c fl/ext TIA (transient ischemic attack) No recur rent symptoms12/18/15 MRI brain s , minimal volume loss10/2015 L facial droop/numbness/dysarthria/UE weakness p N/headache c induced by car paint and was taking "super green tea" and gingko to lose weight-received tpa in ED, NIH 8, felt by Dr. Anderson c/w TIA, asprin 81 changed to Plavix, normal MRI/MRA brain, MRA carotid Chronic pain syndrome on bill 100 TId, B [place] 75 qAMmain pain generator: thoracic spondylosis c radicular/myofascial pain //no NSAIDs given h/o NSAID- induced PUD, on clopid and has HTNC: [place] to 75 BID, retry dulox1 patient assumes risk of oversedation/ c bup retrial (although SAFEST opioid and she feels this class is ONLY one that helps her); + [place] 75 BID (oversedation c Butrans patch)06/30/20 agrees to retry bill 100 TID (given tolerated and beneficial in past)05/19/20 encoruaged to try dulox105/24/19 changed nor 50 QHS (was for migraine px) to dulox 30 BID (which she did not start)03/06/20 Butrans 5 patch held due to "oversedation" as per Hosp02/28/20 Butrans 5 started as "safer" alternative12/11/19 given -7SDS, oxycodone 5 BID STOPPED02/12/19 SDS appropriate + for oxycodone and temazepam (2 Valium from Gallego)12/15/18 increased 5 BID to 7.5 BID given subacute flare, + lido 4% o TID (no coverage for Lidoderm) and continue diclo 1.5% QID and increase venla as per MDD04/2018 ML DJD T 11/20 > T 10/20; therefore, referred to [facility] TESI, but px CX apt12/2014 -CCP, HLA -B27, CRP <0.31, Shari 1:80 speckled-father, sister c /Crohn's Migraine headache ondan 4 BID prn abor tivepx BB as per khitqtkmsblx98/9/20 nor 50 QHS to dulox 30 BID as per CPS07/2016 Chiki readded topir 25 BID for migraine; but 04/2017 patient stopped on own c stable HA12/26/15 increased ami 25 to carvedilol held as per hypertension and amitriptyline [address] Reyna Carlos of colonic polyp repeat colon due 08/15 018-W3 1D uncles c colon cancer (3 mother's brothers c colon cancer)02/19/21 patient finally consents to repeat colon c W Hypothyroidism, unspecified mother c hyp othyroidism, onset in 60s11/18/20 1.5, 0.910/ 0.9, 1.0 on 1.0, 0.9 on 1.0, 0. 1.3, 1.12/2015 1.5, FT4 0.912 2.01/2015 2.2, 0.8 on LT4 5.4, given daja ght gain and fatigue, LT4 25 started10/2013 1.5 prior to IY3GjtwdJuly 2011 TSH 0.9 IFG (impaired fasting glucose) C: sever e N c met XR 500, dulag 0.75no DM in 1DR (mother was "borderline")11/18/20 5.9; ergo, 02/19/21 + monson 0.65/01/02 stopped dulag 0.75 given px convinced N/V is 2 dulag05/2019 6.0 c NEEL-IR 4 (102, 16); therefore, + dulag 0.75 q7D given severe intolerance to LD met XR01/2019 5. 6.3; therefore, encouraged to restart met XR 500 AC dinner, but again stopped 2 N1 5. 6.4 c NEEL-IR 6 (105/23); therefore, + metformin XR 500 AC dinner (09/2017 referred to Nutrition, but patient CX)12/2016 6.110 108 BENSON/creatinine 8 Breast cancer screening 02/2019 B C1 thalia mogram06/30/20, 02/19/21 gave mammo order Encounter for screening for lung cancer repeat LD CT chest CTA chest WNL09/14/19 CTA chest WNL x scattered RL, RML opacities cw PN07/[address] chest Folic acid deficiency hgb as per macro11/18/20 7551 585 on 5789 1006; therefore, decreased to 2 mg QD08/201358 538 on 2 mg BID07/2011-271 on 1 mg daily therefore increased to RBC folate 278-prior to supplementation10/2018 93169 76 93137 B12 999 s supplement01/2016 27%, 5110/2014 22%, 11 s supplementation 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 Mainly intermittent R V2 distribution "numbness"-favor moreso R V2 TN. Refer per patient request for Neuro opinion. Hyperlipidemia intolerance to Lipit or, Zocor, Pravachol 102/78/97 off rosuva 20 for unknown reason; ergo, restarted01/2019 65/61/113, 77, <0.310 56/60/85 on rosuva 20 generic05/2017 67/63/128, 54, <0.3 on Crestor 40 DAW07/2016 /2014 62/58/157, CPK 71 on Crestor 154/62/118, CPK 52 off x 1M given cost, therefore encouraged to restart and gave coupon10/2013 55/73/58, CPK 49, CRP <0.3 on Crestor 142/59/69, CPK 47 off statin, therefore restarted Crestor 10 qd (05/19 40 qd c coupon)02/2013 patient stopped 2 cost01/2013 107/57/78 on Crestor 5 qd08/2012 134/50/89 on Crestor 5qd, patient refuses increase Crestor dose12/2011 150/55/114, LDL size 21.7 therefore started Crestor 5 qhs10/2017 normal LFTsTSH as per hypo Nephrolithiasis No recurrent symptom s of stone passage05/2017 CT AP c stable L stone, R s stonecontinue to avoid topir given h/o recurrent B nephrolithiasis Right flank pain 08/21/20 MRI ABD s: WN L (no pancreatic cyst)06/04/20 CT AP stone protocol intrarenal NO 4 mm05/19/20 3D recurrent R flank pain c urine dip 50 blood; therefore, UA/UCX and check CT AP stone protocol (of note 05/01, 05/12/20 CTA chest and 04/09/20 CT chest ALL WNL) 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 Fieldgly cautioned re regimen given OSA03/07/20 [facility] hosp for ME-diazepam 10-20 to 5 QHS and traz 100 to 50 QHS Microscopic hematuria No LUTs/gross heam turia10/2017 4 RBCs, UCX NG09/2017 normal cystoscopy-Dr. Horton07/2017 established c [facility] Urology (Dr. Levin)05/2017 CT AP stone protocol stable L mid calculus and stable B renal cysts JORDAN (obstructive sleep apnea) Encouraged compliance c CPAP (using since 08/2020)03/17/20 given severe fatigue, 03/24/20 rechecked HST: LUIS ENRIQUE 44, SaO2 to 80%; therefore, urgently referred to PA for repeat NPSG (apt 07/07/20 115 PM) Essential (primary) hypertension Stable on carve 12 BID, telmi 20 BID05/19/20 telmi 10 BID to 20 BID given BP 140s/90s c BID BP cb in 05/01/20 amlo 2.5 to telmi 10 BID (05/17 20 BID)03/06/20 carve 12 BID reduced to 6 BID given SB during admission for encephalopathy05/2019 4.2, 2.2, 0. 4.0, 2.2, 0. CTD 12.5 QD [facility] restarted carvedilol 12.5 BID10/2015 carvedilol held during hospitalization for TIA, then restated given elevated BPs11/2014 increased to 12.5 BID04/08/14 increased to 6.25 BID03/18/14 changed Norvasc 5 (started 03/18/[address] Vasquez) to carvedililol 3.25 BID given hypertension, palpitations, h/o asx NSVTJuly 2010 and with her blood pressure monitor with mean blood pressure 120/79 and minimal 95/58March 2010 normal 24 hours urine for metanephrines, VMA01/30/2014 EKG normal sinus rhythm 75 bpm, iRBBB, V1-V4 inverted T waves similar to 08/29/2012 Fatigue favor 2 polypharmacy , unpalliated SA03/17/20 per px, no improvement of fatigue c meds held as per Hosp c despite 12H sleep; therefore, repeat HST Treatment Notes Test Name Order Date [facility] Hiam Screening Bilateral (Ultrasound if Indicated ) (3D Mammo) 2021-02-19 Future Test Test Name Order Date Comprehensive Metabolic Profile (CMP) 20210522 INSULIN LEVEL [id number] HEMOGLOBIN A1c 20210522 MAGNESIUM LEVEL 20210522 NT-PRO BNP [id number] CBC with Differential [id number] FERRITIN [id number] Low Dose Lung Screening CT Chest [id number] Referrals Referral Date Details samirDenver Next Appt Details 3M, BW 1W prior Reason: Provider Name:Case Monet, 2021-06-25 1 1:45:00 AM, [address] [facility], , [place], [address], Insurance Providers Payer Name Payer Address Payer Phone Insured Name Patient Relati onship to Insured Coverage Start Date Coverage End Date MEDICARE COMPLETE UNITED [employer] [address] [address] [facility] [id number] LIDIA BAUTISTA self
--- OUTSIDE RECORDS SUMMARY | 2021-04-18 13:33 | CCD ---
Author Author [facility] Organization 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 Active confirmed 65182105 Problem Hyperlipidemia E78.5 Active confirmed 67762 004 Problem Hypothyroidism, unspecified E03.9 Active confirmed 38933753 Problem Osteoarthritis of both knees M17.0 Active confirme d 245326574 Problem IFG (impaired fasting glucose) R73.01 Active confir med 810079545 Problem Obesity E66.9 Active confirmed 741449452 Problem Nephrolithiasis N20.0 Active confirmed 9557 0007 Problem Osteoarthritis of spine with radiculopathy, thoracic regio n M47.24 Active confirmed 5442659 Problem Depression F32.9 Active confirmed 44628341 Problem 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 Active confirmed 161 477252 Problem PUD (peptic ulcer disease) K27.9 Active confirmed 23431635 Problem Essential (primary) hypertension I10 Active conf irmed 15375980 Problem Gastro-esophageal reflux disease without esophagitis K21.9 Active confirmed 687513133 Problem TIA (transient ischemic attack) G45.9 Active confi rmed 000233473 Problem JORDAN (obstructive sleep apnea) G47.33 Active confirm ed 60213774 Problem Herpes gingivostomatitis B00.2 Active confirmed 56687314 Problem Folic acid deficiency E53.8 Active confirmed 450526885 Problem Aortic root dilatation I77.810 Active confirmed 649800797 Problem Spondylosis of thoracic region without myelopath y or radiculopathy M47.814 Active confirmed 257457703 Problem Macrocytosis D75.89 Active confirmed 1426599 00 Problem Hx of colonic polyp Z86.010 Active confirmed 445315333 Problem Non-seasonal allergic rhinitis, unspecified trigger J30.89 Active confirmed 36210717 Problem Cervical spondylosis M47.812 Active confirmed 244222585 Problem Cervical cancer screening Z12.4 Active confirmed 193908084 Problem Anxiety F41.9 Active confirmed 92398375 Problem Insomnia G47.00 Active confirmed 610826606 Problem Other chronic pain G89.29 Active confirmed 8 2332450 Problem Breast cancer screening Z12.39 Active confirmed 898878151 Problem Migraine headache G43.909 Active confirmed 3 5254451 Problem Renal cyst N28.1 Active confirmed 672342059 Problem Chronic pain syndrome G89.4 Active confirmed 149520883 Problem Encounter for screening for lung cancer Z12.2 Active confirmed 138280617 Problem Burning sensation of vulva N94.89 Active confirmed 379885679 ALLERGIES Allergen (clinical drug ingredient) Drug/Non Drug Allergy do cumented on EMR Reaction Allergy Type Onset Date Status Sulfasalazine Sulfa Antibiotics Anaphylaxis Drug Allergy A ctive atorvastatin Lipitor([facility] Code:[address]-23) lips tingle/numbness D rug Allergy Active tizanidine Tizanidine HCl(ND Code:[address]-09) Rash Drug All ergy Active IV dye allergic per pt Non Drug Allergy Act alana Talwin Rash Drug Allergy Active Statins (for Allergy Use Only) face numb/ tingles Drug All ergy Active ENCOUNTERS from 1960 to 2021-03-19 Encounter Location Date Provider Diagnosis [place] [id number] [facility] [phone] [place] [address] Mar, Case Monet TIA (transient ischemic dang ck) G45.9 IMMUNIZATIONS Vaccine Route Administration Date Status Meningococcal [...] Language: Question Answer Notes Languages spoken: Irish Restoration: Question Answer Notes Restoration 24 Christian Sexual Hx: Question Answer Notes [...] Notes Start Da te End Date Status Clopidogrel Bisulfate 75 MG TAKE ONE TABLET BY MOUTH E VERY DAY Orally once daily for 90 day(s) Active Levothyroxine Sodium 25 MCG 1 tablet Orally Once a day Active Tums Ultra 1000 1000 MG 1 tablet Orally Once a day p rn LAXMI symptoms for 30 day(s) Active Telmisartan 20 MG 1 tablet Orally bid for 90 day(s) Active Liraglutide 18 MG/3ML 0.6 Subcutaneous daily for 30 Days 0 Feb, Active traZODone HCl 100 MG 1 tab Orally at bedtime Active traMADol HCl 50 MG 1 tablet as needed Orally Once a day for 30 D ays Feb, Active Clopidogrel Bisulfate 75 MG TAKE ONE TABLET BY MOUTH E VERY DAY Orally once daily for 30 days Active Gabapentin 100 MG 1 capsule Orally tid for 30 day(s) Active Albuterol Sulfate (2.5 MG/3ML) 0.083% 3 ml as needed I nhalation every 6 hrs as needed Apr, Active Rosuvastatin Calcium 20 MG 1 tablet Orally Once a day for 90 day(s) Active diazePAM 10 MG 1/2 tablet Orally at bedtime Active Nebulizer/Tubing/Mouthpiece - as directed topically ev [...] 2 MG 1 tablet Orally daily Active [place] Nasal [place] 0.65 % 2 sprays in each nostril as needed Nasally TID for 30 Days Jun, Active Zofran 4 MG 1 tab Orally bid prn nausea for 30 day(s) Active Nebulizer - as [...] 3.0L (104%)/ratio 98% Medical History MDD/NGUYỄN/PTSD/chronic insomnia-follows [facility] Dr. Gallego Medical History hyperlipidemia 2B [...] 60) Medical History JORDAN-06/2009 NPSG c RDI 65-Mjzxwc-bxfomgu could not tolerate CPAP Medical History hypertension-09/2015 [...] 1979 Surgical History ESWL 2005 Surgical History cystoscopy-[facility] Recore 09/30 Hospitalization History L facial droop/numbness/dysa rthria-new onset lasting x 1D-normal MRI/MRA brain 01/30- Hospitalization History L facial droop/numbness/dysa rthria/UE, LE weakness- received tpa in ED, [facility] 8, felt by Dr. Anderson c/w TIA, asprin 81 changed to Plavix, normal MRI/MRA brain, MRA carotids 10/12-10/15/2015 Hospitalization History [facility] ED-Flank pain, kidney stone 07/2018 Hospitalization History [facility] encephalopathy-UDS + wilmer zo only, trazadone/diazepam dose [...] Notes Treatment Notes Treatm ent Clinical Notes Mar, TIA (transient ischemic attack) (ICD-10 - G45.9) PLAN OF TREATMENT Medication Medication Name Sig [...] thalmic Twice a day for 30 day(s) Clopidogrel Bisulfate 75 MG TAKE ONE TABLET [...] to B knees for 30 day s Gabapentin 100 MG 1 capsule Orally tid for 30 day(s) Zofran 4 MG 1 tab Orally bid prn nausea for 30 day(s) Carafate 1 GM 1 tablet on an empty stomach Orally Twice a day for 30 day(s) traMADol HCl 50 MG 1 tablet as needed Orally Once a day for 30 Days Feb, diazePAM 10 MG 1/2 tablet Orally at bedtime Valtrex 500 MG 2 tablets Orally BID x 1 day with flare for 1 do se(s) Liraglutide 18 MG/3ML 0.6 Subcutaneous daily for 30 Days Feb, Folic Acid 2 MG 1 tablet Orally daily Carvedilol 12.5 MG 1 tab Orally Twice a day for 90 day(s) Next Appt Details Provider Name:Case Monet, 2021-06-25 1 1:45:00 AM, [address] [facility], , [place], [address], Insurance Providers Payer Name Payer Address Payer Phone Insured Name Patient Relati onship to Insured Coverage Start Date Coverage End Date MEDICARE COMPLETE [employer] [address] [address] [facility] [id number] LIDIA AGUIRRE
--- OUTSIDE RECORDS SUMMARY | 2021-04-18 13:33 | CCD ---
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 Active confirmed 38747183 Problem Hyperlipidemia E78.5 Active confirmed 39663 004 Problem Hypothyroidism, unspecified E03.9 Active confirmed 12736291 Problem Osteoarthritis of both knees M17.0 Active confirme d 445374447 Problem IFG (impaired fasting glucose) R73.01 Active confir med 613675284 Problem Obesity E66.9 Active confirmed 470200549 Problem Nephrolithiasis N20.0 Active confirmed 9557 0007 Problem Osteoarthritis of spine with radiculopathy, thoracic regio n M47.24 Active confirmed 2224065 Problem Depression F32.9 Active confirmed 10260185 Problem 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 Active confirmed 161 410294 Problem PUD (peptic ulcer disease) K27.9 Active confirmed 63115387 Problem Essential (primary) hypertension I10 Active conf irmed 81004073 Problem Gastro-esophageal reflux disease without esophagitis K21.9 Active confirmed 261114891 Problem TIA (transient ischemic attack) G45.9 Active confi rmed 276439895 Problem JORDAN (obstructive sleep apnea) G47.33 Active confirm ed 73128290 Problem Herpes gingivostomatitis B00.2 Active confirmed 53857923 Problem Folic acid deficiency E53.8 Active confirmed 844764529 Problem Aortic root dilatation I77.810 Active confirmed 948850532 Problem Spondylosis of thoracic region without myelopath y or radiculopathy M47.814 Active confirmed 267036461 Problem Macrocytosis D75.89 Active confirmed 4871189 00 Problem Hx of colonic polyp Z86.010 Active confirmed 963327566 Problem Non-seasonal allergic rhinitis, unspecified trigger J30.89 Active confirmed 45479894 Problem Cervical spondylosis M47.812 Active confirmed 403259900 Problem Cervical cancer screening Z12.4 Active confirmed 320753201 Problem Anxiety F41.9 Active confirmed 31089336 Problem Insomnia G47.00 Active confirmed 167183920 Problem Other chronic pain G89.29 Active confirmed 8 9405252 Problem Breast cancer screening Z12.39 Active confirmed 279354408 Problem Migraine headache G43.909 Active confirmed 3 8572486 Problem Renal cyst N28.1 Active confirmed 076807337 Problem Chronic pain syndrome G89.4 Active confirmed 555836532 Problem Encounter for screening for lung cancer Z12.2 Active confirmed 380704342 Problem Burning sensation of vulva N94.89 Active confirmed 059962626 ALLERGIES Allergen (clinical drug ingredient) Drug/Non Drug Allergy do cumented on EMR Reaction Allergy Type Onset Date Status Sulfa (for allergy use only) Anaphylaxis Non Drug Allergy Active atorvastatin Lipitor(NDC Code:[address]-52) lips tingle/numbness D rug Allergy Active tizanidine Tizanidine HCl(ND Code:[address]-73) Rash Drug All ergy Active IV dye allergic per pt Non Drug Allergy Act alana Statins (for Allergy Use Only) face numb/ tingles Non Drug Allergy Active Talwin Rash Drug Allergy Active ENCOUNTERS from 1960 to 2021-02-10 Encounter Location Date Provider Diagnosis [place] [facility] [phone] [place] [address] Jan, Qian Skipton Dorsalgia, unspecified M54.9 ; Other chronic pain G89.29 and Urinary frequency R35.0 IMMUNIZATIONS Vaccine Route Administration Date Status Meningococcal [...] Education Language: Question Answer Notes Languages spoken: Indonesian Jehovah'S Witness: Question Answer Notes Jehovah'S Witness 24 Gnosticist Sexual Hx: Question Answer Notes Had sex [...] REASON FOR REFERRAL No Information VITAL SIGNS Weight 219 lbs Jan, Height 67.75 in Jan, BMI 33.54 kg/m2 Jan, Heart Rate 83 /min Jan, Respiratory Rate 18 /min Jan, Temperature 97.7 degrees Fahrenheit Jan, Oximetry 97 Jan, Blood pressure systolic 116 mm Hg Jan, Blood pressure diastolic 76 mm Hg Jan, MEDICATIONS Medication SIG (Take, Route, Frequency, Duration) [...] Orally Twice a day for 90 Active [place] Nasal [place] 0.65 % 2 sprays in each nostril [...] bid prn nausea for 30 day(s) Active Nasacort Allergy 24HR 55 MCG/ACT 1 puff in each nostril Nasally Onc e a day Active Carafate 1 GM/10ML 10 ml on an empty stomach Orally Daily for 30 day(s) Aug, Not-Taking Cyclobenzaprine HCl 10 MG 1 tablet as needed Orally Three times a day for 30 Active Montelukast Sodium 10 MG 1 tablet Orally at bedtime for 30 days Active Clopidogrel Bisulfate 75 MG TAKE ONE TABLET BY MOUTH E VERY DAY Orally once daily for 30 Active Ondansetron 4 MG 1 tablet on the tongue and a llow to dissolve Orally bid as needed for 30 day(s) duplicate Jun, Not-Taking Tums Ultra 1000 1000 MG 1 tablet [...] day f or 30 day(s) Aug, Not-Taking Rosuvastatin Calcium 40 MG 1/2 tablet Orally Once a day Not-Taking Olopatadine HCl 0.1 % 1 drop into affected eye Oph thalmic Twice a day for 30 day(s) Active Lansoprazole 30 MG 1 capsule before [...] 30 day(s) Not-Taking PROCEDURES No Information RESULTS Component Value Reference Range Urinalysis, no Micro Reviewed date:02/06/2021 11:44:53 Interpretation: Performing Lab:[facility], [place] [address] Spec gravity 1.015 1.002 - 1.035 pH 5 5.0 - 9.0 Leukocyte n Negative - Nitrate n Negative - Protein n Negative - mg/dl Glucose n Negative - mg/dl Ketones n Negative - mg/dl Urobili n Normal - mg/dl Bilirubin n Negative - Blood n Negative - Internal QC Acceptable (Y/N) yes REASON FOR VISIT back pain MEDICAL (GENERAL) HISTORY Type Description Date Medical History history of nonsustained asym ptomatic ventricular tachycardia- 09/2012 RST low risk-Antecol Medical History nicotine addiction-1PPD from [age]Y, 07/2011 FEV1 3.0L (104%)/ratio 98% Medical History MDD/NGUYỄN/PTSD/chronic insomnia-[facility]s [facility] Dr. Gallego Medical History hyperlipidemia [...] polyp by colonos copy October 2006-Betty/ normal colonoscopy-W/08/2014 medium tubular adenoma-W Medical History obstructive sleep [...] 60) Medical History JORDAN-06/2009 NPSG c RDI 82-Avcfds-qhpzeso could not tolerate CPAP Medical History hypertension-09/2015 [...] MRI/MRA brain, MRA carotids 10/12-10/15/2015 Hospitalization History [facility] ED-Flank pain, kidney stone 04/0 07/2018 Hospitalization History [facility] encephalopathy-UDS + wilmer zo only, trazadone/diazepam [...] Notes Treatment Notes Treatm ent Clinical Notes Jan, Dorsalgia, unspecified (ICD-10 - M54.9) Likely muscle strain based on symptoms and exam. Advised patient that kidney stone is unlikely with no blood in her urine on dip today. I recommended she continue with acetaminophen, cyclobenzaprine and diazepam for muscle spasms, heat, and topical lidocaine. Advised her to avoid ketorolac as this was not effective and increases bleeding risk wtih clopidogrel. Jan, Other chronic pain (ICD-10 - G89.29) Jan, Urinary frequency (ICD-10 - R35.0) She declines to have urine sent for urine culture. Advised if symptoms are chronic with urine negative for infection, she could have interstitial cystitis and I recommended she d/w her PCP at her f/u appt in 2 weeks. PLAN OF TREATMENT Treatment Notes Assessment Notes Clinical Notes Dorsalgia, unspecified Likely muscle str ain based on symptoms and exam. Advised patient that kidney stone is unlikely with no blood in her urine on dip today. I recommended she continue with acetaminophen, cyclobenzaprine and diazepam for muscle spasms, heat, and topical lidocaine. Advised her to avoid ketorolac as this was not effective and increases bleeding risk wtih clopidogrel. Urinary frequency She declines to have urine sent for urine culture. Advised if symptoms are chronic with urine negative for infection, she could have interstitial cystitis and I recommended she d/w her PCP at her f/u appt in 2 weeks. Next Appt Details as sched with PCP Reason: Provider Name:Case Monet, 2021-02-19 0 4:00:00 PM, [address] [facility], , [place], [address], Insurance Providers Payer Name Payer Address Payer Phone Insured Name Patient Relati onship to Insured Coverage Start Date Coverage End Date MEDICARE COMPLETE [employer] [address] [address] [facility] [id number] LIDIA AGUIRRE self
--- OUTSIDE RECORDS SUMMARY | 2021-04-18 13:35 | CCD ---
Author Author [facility] Organization [facility] Address Unknown Phone Unavailable Care Team Providers [facility] Interviews Intern Name Role Phone Shepard, Amanda AGING DEPARTMENT SUPERVISOR Unavailable Unavailable Shepard, Amanda AGING DEPARTMENT SUPERVISOR Unavailable Unavailable Shepard, Amanda AGING DEPARTMENT SUPERVISOR Unavailable Unavailable Shepard, Amanda AGING DEPARTMENT SUPERVISOR Unavailable Unavailable Shepard, Amanda AGING DEPARTMENT SUPERVISOR Unavailable Unavailable Shepard, Amanda AGING DEPARTMENT SUPERVISOR Unavailable Unavailable Shepard, Amanda AGING DEPARTMENT SUPERVISOR Unavailable Unavailable Shepard, Amanda AGING DEPARTMENT SUPERVISOR Unavailable Unavailable Shepard, Amanda AGING DEPARTMENT SUPERVISOR Unavailable Unavailable Shepard, Amanda AGING DEPARTMENT SUPERVISOR Unavailable Unavailable Shepard, Amanda AGING DEPARTMENT SUPERVISOR Unavailable Unavailable Shepard, Amanda AGING DEPARTMENT SUPERVISOR Unavailable Unavailable Shepard, Amanda AGING DEPARTMENT SUPERVISOR Unavailable Unavailable SYSTEM IN, NOT IN PROVIDER Unavailable Unavailable FishLigia, PA-C Unavailable Unavailabl e Fish, Ligia BARNEY, PA-C Unavailable Unavailabl e FishLigia, PA-C Unavailable Unavailabl e FishLigia, PA-C Unavailable Unavailabl e FishL[facility]ia, PA-C Unavailable Unavailabl e FishLigia, PA-C Unavailable Unavailabl e Fish, Ligia BARNEY, PA-C Unavailable Unavailabl e FishLigia, PA-C Unavailable Unavailabl e FishLigia, PA-C Unavailable Unavailabl e FishLigia, PA-C Unavailable Unavailabl e Fish, [facility], PA-C Unavailable Unavailabl e Fish, [facility], PA-C Unavailable Unavailabl e Fish, [facility], PA-C Unavailable Unavailabl e Fish, [facility], PA-C Unavailable Unavailabl e Fish, [facility], PA-C Unavailable Unavailabl e Fish, [facility], PA-C Unavailable Unavailabl e Fish, [facility], PA-C Unavailable Unavailabl e Fish, [facility], PA-C Unavailable Unavailabl e Fish, [facility], PA-C Unavailable Unavailabl e Fish, [facility], PA-C Unavailable Unavailabl e Fish, [facility], PA-C Unavailable Unavailabl e Fish, [facility], PA-C Unavailable Unavailabl e Fish, [facility], PA-C Unavailable Unavailabl e Fish, [facility], PA-C Unavailable Unavailabl e Fish, [facility], PA-C Unavailable Unavailabl e Fish, [facility], PA-C Unavailable Unavailabl e Fish, [facility], PA-C Unavailable Unavailabl e Fish, [facility], PA-C Unavailable Unavailabl e Fish, [facility], PA-C Unavailable Unavailabl e Fish, [facility], PA-C Unavailable Unavailabl e Fish, [facility], PA-C Unavailable Unavailabl e Fish, [facility], PA-C Unavailable Unavailabl e Fish, [facility], PA-C Unavailable Unavailabl e Fish, [facility], PA-C Unavailable Unavailabl e Fish, [facility], PA-C Unavailable Unavailabl e Fish, [facility], PA-C Unavailable Unavailabl e Julieta Vasquez MD Unavailable Unavailable Julieta Vasquez MD Unavailable Unavailable Julieta Vasquez MD Unavailable Unavailable Julieta Vasquez MD Unavailable Unavailable Julieta Vasquez MD Unavailable Unavailable Julieta Vasquez MD Unavailable Unavailable Julieta Vasquez MD Unavailable Unavailable Julieta Vasquez MD Unavailable Unavailable Julieta Vasquez MD Unavailable Unavailable Julieta Vasquez MD Unavailable Unavailable Julieta Vasquez MD Unavailable Unavailable Ali, Julieta MD Unavailable Unavailable Ali, Julieta MD Unavailable Unavailable Ali, Julieta MD Unavailable Unavailable Ali, Julieta MD Unavailable Unavailable Ali, Julieta MD Unavailable Unavailable Ali, Julieta MD Unavailable Unavailable Ali, Julieta MD Unavailable Unavailable Ali, Julieta MD Unavailable Unavailable Ali, Julieta MD Unavailable Unavailable Ali, Julieta MD Unavailable Unavailable Ali, Julieta MD Unavailable Unavailable Ali, Julieta MD Unavailable Unavailable Ali, Julieta MD Unavailable Unavailable Ali, Juileta MD Unavailable Unavailable Ali, Julieta MD Unavailable Unavailable Ali, Julieta MD Unavailable Unavailable Ali, Julieta MD Unavailable Unavailable Ali, Julieta MD Unavailable Unavailable Ali, Julieta MD Unavailable Unavailable Ali, Julieta MD Unavailable Unavailable Ali, Julieta MD Unavailable Unavailable Ali, Julieta MD Unavailable Unavailable Ali, Julieta MD Unavailable Unavailable Ali, Julieta MD Unavailable Unavailable Ali, Julieta MD Unavailable Unavailable Ali, Julieta MD Unavailable Unavailable Ali, Julieta MD Unavailable Unavailable Ali, Julieta MD Unavailable Unavailable Ali, Julieta MD Unavailable Unavailable Ali, Julieta MD Unavailable Unavailable Ali, Julieta MD Unavailable Unavailable Ali, Julieta MD Unavailable Unavailable Ali, Julieta MD Unavailable Unavailable Ali, Julieta MD Unavailable Unavailable Ali, Julieta MD Unavailable Unavailable Ali, Julieta MD Unavailable Unavailable Ali, Julieta MD Unavailable Unavailable Ali, Julieta MD Unavailable Unavailable Ali, Julieta MD Unavailable Unavailable Ali, Julieta MD Unavailable Unavailable Ali, Julieta MD Unavailable Unavailable CALEB, RADHA HAROON LINESPERSON-C Unavailable Unavailable CALEB, RADHA HAROON LINESPERSON-C Unavailable Unavailable CALEB, RADHA HAROON LINESPERSON-C Unavailable Unavailable CALEB, RADHA HAROON LINESPERSON-C Unavailable Unavailable CALEB, RADHA HAROON LINESPERSON-C Unavailable Unavailable CALEB, RDAHA HAROON LINESPERSON-C Unavailable Unavailable CALEB, RADHA HAROON LINESPERSON-C Unavailable Unavailable CALEB, RADHA HAROON LINESPERSON-C Unavailable Unavailable CALEB, ARDHA HAROON LINESPERSON-C Unavailable Unavailable CALEB, RADHA HAROON LINESPERSON-C Unavailable Unavailable CALEB, RADHA HAROON LINESPERSON-C Unavailable Unavailable CALEB, RADHA HAROON LINESPERSON-C Unavailable Unavailable CALEB, RADHA HAROON LINESPERSON-C Unavailable Unavailable CALEB, RADHA AHROON LINESPERSON-C Unavailable Unavailable CALEB, RADHA HAROON LINESPERSON-C Unavailable Unavailable CALEB, RADHA HAROON LINESPERSON-C Unavailable Unavailable CALEB, RADHA HAROON LINESPERSON-C Unavailable Unavailable HAROON, NITO PA Unavailable Unavailable HAROON, NITO PA Unavailable Unavailable HAROON, NITO PA Unavailable Unavailable HAROON, NITO PA Unavailable Unavailable HAROON, NITO PA Unavailable Unavailable HAROON, NITO PA Unavailable Unavailable HAROON, NITO PA Unavailable Unavailable HAROON, NITO PA Unavailable Unavailable HAROON, NITO PA Unavailable Unavailable HAROON, NITO PA Unavailable Unavailable HAROON, NITO PA Unavailable Unavailable HAROON, NITO PA Unavailable Unavailable HAROON, NITO PA Unavailable Unavailable HAROON, NITO PA Unavailable Unavailable HAROON, NITO PA Unavailable Unavailable HAROON, NITO PA Unavailable Unavailable HAROON, NITO PA Unavailable Unavailable HAROON, NITO PA Unavailable Unavailable HAROON, NITO PA Unavailable Unavailable HAROON, NITO PA Unavailable Unavailable HAROON, NITO PA Unavailable Unavailable HAROON, NITO PA Unavailable Unavailable HAROON, NITO PA Unavailable Unavailable HAROON, NITO PA Unavailable Unavailable HAROON, NITO PA Unavailable Unavailable HAROON, NITO PA Unavailable Unavailable HAROON, NITO PA Unavailable Unavailable HAROON, NITO PA Unavailable Unavailable HAROON, NITO PA Unavailable Unavailable HAROON, NITO PA Unavailable Unavailable HAROON, NITO PA Unavailable Unavailable HAROON, NITO PA Unavailable Unavailable HAROON, NITO PA Unavailable Unavailable HAROON, NITO PA Unavailable Unavailable HAROON, NITO PA Unavailable Unavailable HAROON, NITO PA Unavailable Unavailable TIERNEY MURO MD Unavailable Unavailable TIERNEY MURO MD Unavailable Unavailable TIERNEY MURO MD Unavailable Unavailable TIERNEY MURO MD Unavailable Unavailable TIERNEY MURO MD Unavailable Unavailable TIERNEY MURO MD Unavailable Unavailable TIERNEY MURO MD Unavailable Unavailable TIERNEY MURO MD Unavailable Unavailable TIERNEY MURO MD Unavailable Unavailable TIERNEY MURO MD Unavailable Unavailable TIERNEY MURO MD Unavailable Unavailable TIERNEY MURO MD Unavailable Unavailable TIERNEY MURO MD Unavailable Unavailable TIERNEY MURO MD Unavailable Unavailable TIERNEY MURO MD Unavailable Unavailable TIERNEY MURO MD Unavailable Unavailable TIERNEY MURO MD Unavailable Unavailable TIERNEY MURO MD Unavailable Unavailable MURO, TIERNEY MD Unavailable Unavailable MURO, TIERNEY MD Unavailable Unavailable MURO, TIERNEY MD Unavailable Unavailable MURO, TIERNEY MD Unavailable Unavailable MURO, TIERNEY MD Unavailable Unavailable MURO, TIERNEY MD Unavailable Unavailable MURO, TIERNEY MD Unavailable Unavailable MURO, TIERNEY MD Unavailable Unavailable MURO, TIERNEY MD Unavailable Unavailable MURO, TIERNEY MD Unavailable Unavailable MURO, TIERNEY MD Unavailable Unavailable MURO, TIERNEY MD Unavailable Unavailable MURO, TIERNEY MD Unavailable Unavailable Re-disclosure Warning The records that you are about to access may contain information from federally-assisted alcohol or drug abuse programs. If such information is present, then the following federally mandated warning applies: This information has been disclosed to you from records protected by federal confidentiality rules (42 CFR part 2). The federal rules prohibit you from making any further disclosure of this information unless further disclosure is expressly permitted by the written consent of the person to whom it pertains or as otherwise permitted by 42 CFR part 2. A general authorization for the release of medical or other information is NOT sufficient for this purpose. The Federal rules restrict any use of the information to criminally investigate or prosecute any alcohol or drug abuse patient.The records that you are about to access may contain highly sensitive health information, the redisclosure of which is protected by Article 27-F of the [facility] [place] Public Health law. If you continue you may have access to information: Regarding HIV / AIDS; Provided by facilities licensed or operated by the [facility] Office of Mental Health; or Provided by the [facility] Office for People With Developmental Disabilities. If such information is present, then the following [facility] mandated warning applies: This information has been disclosed to you from confidential records which are protected by state law. State law prohibits you from making any further disclosure of this information without the specific written consent of the person to whom it pertains, or as otherwise permitted by law. Any unauthorized further disclosure in violation of state law may result in a fine or usp sentence or both. A general authorization for the release of medical or other information is NOT sufficient authorization for further disc losure. Family History Family Member Name Family Member Gender Family Member Status Date o f Status Description Data Source(s) Unknown Male Problem [facility] ([facility]) Unknown Male Problem [facility] ([facility]) Unknown Male Problem [facility] ([facility]) Unknown Male Problem MEDENT ([facility]) Unknown Unknown Problem MED[facility] ([facility]) Encounters Encounter Providers Location Date Indications Data Source(s ) [place] [address] [facility] [address] 04/01/2021 12:00:00 AM EST eCW1 ([facility]) [place] [address] [facility] [address] 04/01/2021 12:00:00 AM EST eCW1 ([facility]) [place] [address] [facility] [address] 04/01/2021 12:00:00 AM EST eCW1 ([facility]) [place] [address] [facility] [address] 04/01/2021 12:00:00 AM EST eCW1 ([facility]) [place] [address] [facility] [place] [address] 03/30/2021 12:00:00 AM EST eCW1 ([facility]) [place] [address] [facility] [address] 03/30/2021 12:00:00 AM EST eCW1 ([facility]) [place] [address] [facility] [address] 03/27/2021 12:00:00 AM EST eCW1 ([facility]) [place] [address] [facility] [address] 03/26/2021 12:00:00 AM EST eCW1 ([facility]) [place] [address] [facility] [address] 03/25/2021 12:00:00 AM EST eCW1 ([facility]) Unknown [address] [facility] [place] [address] 03/25/2021 12:00:00 AM EST eCW1 ([facility]) Unknown [address] [facility] [place] [address] 03/19/2021 12:00:00 AM EDT eCW1 ([facility]) [place] [address] [facility] [address] 03/19/2021 12:00:00 AM EDT [facility] [place] [address] [facility] [address] 03/17/2021 12:00:00 AM EDT eCW1 ([facility]) Outpatient Attender: HAROON Ramírez/Klaus/[place]/Patricia mcnamara 03/13/2021 02:15:00 PM EDT MEDENT ([facility], ) Office Visit Attender: Julieta Vasquez MD Main office - [facility] 03/05/2021 12:45:00 PM EDT MED[facility] ([facility], ) Unknown [address] [facility] [address] 02/20/2021 12:00:00 AM EDT eCW1 ([facility]) [place] [address] [facility] [address] 02/20/2021 12:00:00 AM EDT eCW1 ([facility]) Office Visit, Est Pt., Level 4 [address] [place] [address] 02/19/2021 12:00:00 AM EDT eCW1 ([facility]) Unknown [address] [facility] [place] [address] 02/19/2021 12:00:00 AM EDT eCW1 ([facility]) Unknown [address] [facility] [place] [address] 02/18/2021 12:00:00 AM EDT eCW1 ([facility]) Outpatient [address] [facility] [place] [address] 02/06/2021 12:00:00 AM EDT eCW1 ([facility]) Unknown [address] [facility] [place] [address] 02/05/2021 12:00:00 AM EDT eCW1 ([facility]) [place] [address] [facility] [address] 12/24/2020 12:00:00 AM EDT eCW1 ([facility]) Office Visit Attender: Julieta Vasquez MD Main office - [facility] 12/18/2020 03:00:00 PM EDT MEDENT ([facility]) [place] [address] [facility] [address] 12/11/2020 12:00:00 AM EDT eCW1 ([facility]) [place] [address] [facility] [address] 12/11/2020 12:00:00 AM EDT eCW1 ([facility]) [place] [address] [facility] [address] 11/27/2020 12:00:00 AM EDT eCW1 ([facility]) [place] [address] [facility] [address] 11/24/2020 12:00:00 AM EDT eCW1 ([facility]) [place] [address] [facility] [address] 11/20/2020 12:00:00 AM EDT eCW1 ([facility]) Outpatient Attender: Marci BARNEY PA-C Physical Therapy 11/18/2020 01:30:00 PM EDT MEDENT ([facility]) [place] [address] [facility] [address] 11/13/2020 12:00:00 AM EDT eCW1 ([facility]) Outpatient [address] [facility] [address] 11/11/2020 12:00:00 AM EDT eCW1 ([facility]) Unknown [address] [facility] [address] 11/10/2020 12:00:00 AM EDT eCW1 ([facility]) [place] [address] [facility] [address] 11/10/2020 12:00:00 AM EDT [facility] [place] [address] [facility] [address] 11/06/2020 12:00:00 AM EDT [facility]CW1 [facility] [place] [address] [facility] [address] 11/05/2020 12:00:00 AM EDT [facility]CW1 [facility] [place] [address] [facility] [address] 10/28/2020 12:00:00 AM EDT eCW1 ([facility] Office Visit, Est Pt., Level 4 [address] [place] [address] 10/28/2020 12:00:00 AM EDT eCW1 ([facility]) Unknown [address] [facility] [address] 10/27/2020 12:00:00 AM EDT eCW1 [facility] Outpatient Attender: Marci BARNEY PA-C Physical Therapy 10/23/2020 08:45:00 AM EDT MEDENT ([facility]) Outpatient Attender: HAROON MARCANO-C Darrell/Klaus/[place]/Patricia mcnamara 10/22/2020 09:45:00 AM EDT MEDENT ([facility]) [place] [address] [facility] [address] 10/16/2020 12:00:00 AM EDT [facility]CW1 [facility] [place] [address] [facility] [address] 10/14/2020 12:00:00 AM EDT eCW1 ([facility]) [place] [address] [facility] [address] 10/01/2020 12:00:00 AM EDT eCW1 ([facility]) Unknown [address] [facility] [address] 09/25/2020 12:00:00 AM EDT eCW1 ([facility]) [place] [address] [facility] [address] 08/22/2020 12:00:00 AM EDT eCW1 ([facility]) [place] [address] [facility] [address] 08/19/2020 12:00:00 AM EDT eCW1 ([facility]) [place] [address] [facility] [address] 08/15/2020 12:00:00 AM EDT eCW1 ([facility]) Office Visit, Est Pt., Level 3 PC [address] [place] [address] 08/14/2020 12:00:00 AM EDT eCW1 ([facility]) Unknown [address] [facility] [address] 08/11/2020 12:00:00 AM EDT eCW1 ([facility]) Unknown [address] [facility] [address] 08/11/2020 12:00:00 AM EDT eCW1 ([facility]) Outpatient [address] [facility] [address] 08/08/2020 12:00:00 AM EDT eCW1 ([facility]) Unknown [address] [facility] [address] 08/08/2020 12:00:00 AM EDT eCW1 ([facility]) [place] [address] [facility] [address] 08/07/2020 12:00:00 AM EDT eCW1 ([facility]) [place] [address] [facility] [address] 07/31/2020 12:00:00 AM EDT eCW1 ([facility]) [place] [address] [facility] [address] 07/28/2020 12:00:00 AM EDT eCW1 ([facility]) Outpatient Attender: Julieta Vasquez MD Main office - [place] 07/18/2020 10:30:00 AM EST MEDENT ([facility]) Unknown [address] [facility] [place] [address] 07/15/2020 12:00:00 AM EST eCW1 ([facility]) Unknown [address] [facility] [place] [address] 07/15/2020 12:00:00 AM EST eCW1 [facility] Outpatient Attender: Amanda tracy 07/14/2020 10:15:00 AM EST MEDENT ([facility]) Outpatient Attender: HAROON MARCANO-C Darrell/Klaus/[place]/Patricia mcnamara 07/07/2020 12:15:00 PM EST MEDENT ([facility] Unknown [address] [facility] [address] 07/07/2020 12:00:00 AM EST eCW1 ([facility] Unknown [address] [facility] [address] 07/04/2020 12:00:00 AM EST eCW1 [facility]) (TCM) Transition of Care Visit [address] [place] [address] 06/30/2020 12:00:00 AM EST eCW1 ([facility]) Unknown [address] [facility] [address] 06/25/2020 12:00:00 AM EST eCW1 ([facility]) Unknown [address] [facility] [address] 06/24/2020 12:00:00 AM EST [facility]CW1 [facility] Outpatient Referrer: PROVIDER SYSTEM IN 06/22/2020 0 3:26:00 PM EST Rt facial droop, RLE weakness [facility] Rt facial droop, RLE weakness [place] [address] [facility] [address] 06/20/2020 12:00:00 AM EST eCW1 ([facility]) Unknown [address] [facility] [address] 06/20/2020 12:00:00 AM EST eCW1 ([facility]) Unknown [address] [facility] [address] 06/20/2020 12:00:00 AM EST eCW1 ([facility]) Outpatient Attender: Amanda tracy 06/17/2020 10:15:00 AM EST MEDENT ([facility]) Unknown [address] [facility] [place] [address] 06/13/2020 12:00:00 AM EST eCW1 ([facility]) Unknown [address] [facility] [place] [address] 06/05/2020 12:00:00 AM EST eCW1 ([facility]) Outpatient Attender: Amanda tracy 06/04/2020 07:45:00 AM EST MED[facility] ([facility]) [place] [address] [facility] [place] [address] 06/02/2020 12:00:00 AM EST eCW1 ([facility]) Unknown [address] [facility] [address] 05/26/2020 12:00:00 AM EST eCW1 ([facility]) Unknown [address] [facility] [place] [address] 05/26/2020 12:00:00 AM EST eCW1 ([facility]) [place] [address] [facility] [place] [address] 05/19/2020 12:00:00 AM EST eCW1 ([facility]) Outpatient [address] [facility] [place] [address] 05/19/2020 12:00:00 AM EST eCW1 ([facility]) Unknown [address] [facility] [place] [address] 05/19/2020 12:00:00 AM EST eCW1 ([facility]) Unknown [address] [facility] [address] 05/13/2020 12:00:00 AM EST eCW1 ([facility]) Unknown [address] [facility] [place] [address] 05/12/2020 12:00:00 AM EST eCW1 ([facility]) Unknown [address] [facility] [place] [address] 05/02/2020 12:00:00 AM EST eCW1 ([facility]) Unknown [address] [facility] [place] [address] 05/01/2020 12:00:00 AM EST eCW1 ([facility]) Unknown [address] [facility] [place] [address] 05/01/2020 12:00:00 AM EST eCW1 ([facility]) Outpatient [address] [facility] [place] [address] 04/21/2020 12:00:00 AM EST eCW1 ([facility] Outpatient Attender: NITO mancuso 04/17/2020 09:30:00 AM EST MED[facility] ([facility]) [place] [address] [facility] [place] [address] 04/16/2020 12:00:00 AM EST eCW1 ([facility]) Unknown [address] [facility] [place] [address] 04/15/2020 12:00:00 AM EST eCW1 ([facility]) Unknown [address] [facility] [place] [address] 04/14/2020 12:00:00 AM EST eCW1 ([facility]) Unknown [address] [facility] [place] [address] 04/03/2020 12:00:00 AM EST [facility]CW[facility] Unknown [address] [facility] [place] [address] 04/01/2020 12:00:00 AM EST [facility]CW1 [facility] Unknown [address] [facility] [address] 03/26/2020 12:00:00 AM EST eCW1 ([facility] Unknown [address] [facility] [place] [address] 03/24/2020 12:00:00 AM EST eCW1 ([facility]) (TCM) Transition of Care Visit [address] [place] [address] 03/17/2020 12:00:00 AM EST eCW1 ([facility]) Unknown [address] [facility] [facility] [id number] 03/10/2020 12:00:00 AM EDT eCW1 ([facility]) Unknown [id number] [facility] [id number] 03/06/2020 12:00:00 AM EDT eCW1 ([facility]) Unknown [id number] [facility] [id number] 03/06/2020 12:00:00 AM EDT eCW1 ([facility]) Outpatient Attender: TIERNEY MURO MD Physical Therapy 08:00:00 AM EDT MEDENT ([facility]) Unknown [id number] [facility] [id number] 02/28/2020 12:00:00 AM EDT eCW1 ([facility]) Immunizations Vaccine Date Status Description Data Source(s) COVID-19 VACCINE Moderna 03/26/2021 12:00:00 AM EST completed [facility] Vaccine Series Complete: YESThis Data wa s Submitted to [facility] Via [facility]. COVID-19 VACCINE Moderna 02/23/2021 12:00:00 AM EDT completed [facility] Vaccine Series Complete: NOThis Data was Submitted to [facility] [employer]. Medications Medication Brand Name Start Date Product Form Dose Route Admi nistrative Instructions Pharmacy Instructions Status Indications Reaction Description Data Source(s) tramadol hydrochloride 50 MG Oral Tablet traMADol HCl 50 MG traMADol HCl 50 MG 04/01/2021 12:00:00 AM EST 1.0 {tablet_as_needed} active traMADol HCl 50 MG eCW1 ([facility]) tramadol hydrochloride 50 MG Oral Tablet traMADol HCl 50 MG traMADol HCl 50 MG 04/01/2021 12:00:00 AM EST 1.0 {tablet_as_needed} ac tive eCW1 ([facility]) 50 mg 04/01/2021 12:00:00 AM EST tablet 30 TAKE ONE TABLET BY MOUTH ONCE DAILY NEEDED MAXIMUM DAILY DOSE = 1 TABLET TAKE ONE TABLET BY MOUTH ONCE DAILY NEEDED MAXIMUM DAILY DOSE = 1 TABLET SOLD: 04/02/2021 [facility] tramadol hydrochloride 50 MG Oral Tablet traMADol HCl 50 MG traMADol HCl 50 MG 04/01/2021 12:00:00 AM EST 1.0 {tablet_as_needed} active traMADol HCl 50 MG eCW1 ([facility]) tramadol hydrochloride 50 MG Oral Tablet traMADol HCl 50 MG traMADol HCl 50 MG 04/01/2021 12:00:00 AM EST 1.0 {tablet_as_needed} active traMADol HCl 50 MG eCW1 ([facility]) 10 mg 03/30/2021 12:00:00 AM EST tablet 60 TAKE ONE TABLET BY MOUTH TWICE A DAY, MAXIMUM DAILY DOSE = 2 TABLETS TAKE ONE TABLET BY MOUTH TWICE A DAY, MAXIMUM DAILY DOSE = 2 TABLETS SOLD: 03/30/2021 [facility] 168 HR Buprenorphine 0.01 MG/HR Transdermal Patch [BuT rans] Butrans 10 MCG/HR Butrans 10 MCG/HR 03/30/2021 12:00:00 AM EST 1.0 {patch_to_skin} active eCW1 ([facility]) 168 HR Buprenorphine 0.01 MG/HR Transdermal Patch [BuT rans] Butrans 10 MCG/HR Butrans 10 MCG/HR 03/30/2021 12:00:00 AM EST 1.0 {patch_to_skin} active Butrans 10 MCG/HR eCW1 ([facility]) 168 HR Buprenorphine 0.01 MG/HR Transdermal Patch [BuT rans] Butrans 10 MCG/HR Butrans 10 MCG/HR 03/30/2021 12:00:00 AM EST 1.0 {patch_to_skin} active eCW1 ([facility]) 168 HR Buprenorphine 0.01 MG/HR Transdermal Patch [BuT rans] Butrans 10 MCG/HR Butrans 10 MCG/HR 03/30/2021 12:00:00 AM EST 1.0 {patch_to_skin} active Butrans 10 MCG/HR eCW1 ([facility]) 168 HR Buprenorphine 0.01 MG/HR Transdermal Patch [BuT rans] Butrans 10 MCG/HR Butrans 10 MCG/HR 03/30/2021 12:00:00 AM EST 1.0 {patch_to_skin} active eCW1 ([facility]) 168 HR Buprenorphine 0.01 MG/HR Transdermal Patch [BuT rans] Butrans 10 MCG/HR Butrans 10 MCG/HR 03/30/2021 12:00:00 AM EST 1.0 {patch_to_skin} active Butrans 10 MCG/HR eCW1 ([facility]) montelukast 10 MG Oral Tablet MONTELUKAST SODIUM 03/28/2021 12:0 0:00 AM EST tablet 30 TAKE ONE TABLET BY MOUTH AT BEDT BEV TAKE ONE TABLET BY MOUTH AT BEDTIME SOLD: 03/29/2021 [facility] tramadol hydrochloride 50 MG Oral Tablet traMADol HCl 50 MG traMADol HCl 50 MG 03/27/2021 12:00:00 AM EST 1.0 {tablet_as_needed} active traMADol HCl 50 MG eCW1 ([facility]) tramadol hydrochloride 50 MG Oral Tablet traMADol HCl 50 MG traMADol HCl 50 MG 03/27/2021 12:00:00 AM EST 1.0 {tablet_as_needed} active traMADol HCl 50 MG eCW1 ([facility]) 100 mcg/0.5 mL 03/26/2021 12:00:00 AM EST suspension 0 INJECT DIRECTED PER STANDING ORDER INJECT DIRECTED PER STANDING ORDER SOLD: 03/26/2021 [facility] 24 HR tramadol hydrochloride 100 MG Exte nded Release Oral Tablet traMADol HCl ER 100 MG traMADol HCl ER 100 MG 03/25/2021 12:00:00 AM EST active traMADol HCl ER 100 MG eCW1 ([facility]) 24 HR tramadol hydrochloride 100 MG Exte nded Release Oral Tablet traMADol HCl ER 100 MG traMADol HCl ER 100 MG 03/25/2021 12:00:00 AM EST active traMADol HCl ER 100 MG eCW1 ([facility]) [facility] 75 MCG [facility] 75 MCG 03/24/2021 12:00:00 AM EST active eCW1 ([facility]) Belbuca 75 MCG [facility] 75 MCG 03/24/2021 12:00:00 AM EST active eCW1 ([facility]) Belbuca 75 MCG [facility] 75 MCG 03/24/2021 12:00:00 AM EST active Bel[place]uca 75 MCG eCW1 ([facility]) Belbuca 75 MCG Bel[place] 75 MCG 03/24/2021 12:00:00 AM EST active Bel[place]uca 75 MCG eCW1 ([facility]) Belbuca 75 MCG Bel[place]uca 75 MCG 03/24/2021 12:00:00 AM EST active Bel[place]uca 75 MCG eCW1 ([facility]) Belbuca 75 MCG Belbuca 75 MCG 03/24/2021 12:00:00 AM EST active Belbuca 75 MCG eCW1 ([facility]) Belbuca 75 MCG Belbuca 75 MCG 03/24/2021 12:00:00 AM EST active Belbuca 75 MCG eCW1 ([facility]) Belbuca 75 MCG Belbuca 75 MCG 03/24/2021 12:00:00 AM EST active Belbuca 75 MCG eCW1 ([facility]) Belbuca 75 MCG Belbuca 75 MCG 03/24/2021 12:00:00 AM EST active eCW1 ([facility]) Belbuca 75 MCG Belbuca 75 MCG 03/24/2021 12:00:00 AM EST active Belbuca 75 MCG eCW1 ([facility]) 4 mg 03/20/2021 12:00:00 AM EDT tablet 60 TAKE ONE TABLET BY MOUTH TWICE A DAY NEEDED FOR NAUSEA TAKE ONE TABLET BY MOUTH TWICE A DAY NEEDED FOR NAUSEA SOLD: 03/20/2021 [facility] 75 mg 03/19/2021 12:00:00 AM EDT tablet 90 TAKE ONE TABLET BY MOUTH EVERY DAY TAKE ONE TABLET BY MOUTH EVERY DAY SOLD: 03/20/2021 [facility] No Active Medications 03/05/2021 12:00:00 AM EDT active MEDENT ([facility]) 10 mg 02/24/2021 12:00:00 AM EDT tablet 60 TAKE ONE TABLET BY MOUTH TWICE A DAY, MAXIMUM DAILY DOSE = 2 TABLETS TAKE ONE TABLET BY MOUTH TWICE A DAY, MAXIMUM DAILY DOSE = 2 TABLETS SOLD: 02/24/2021 [facility] 100 mcg/0.5 mL 02/23/2021 12:00:00 AM EDT suspension 0 INJECT DIRECTED PER STANDING ORDER INJECT DIRECTED PER STANDING ORDER SOLD: 02/23/2021 [facility] 50 mg 02/21/2021 12:00:00 AM EDT tablet 30 TAKE ONE TABLET BY MOUTH EVERY DAY NEEDED * MAXIMUM DAILY DOSE = 1 TAKE ONE TABLET BY MOUTH EVERY DAY NEEDED * MAXIMUM DAILY DOSE = 1 SOLD: 02/21/2021 [facility] Rosuvastatin calcium 20 MG Oral Tablet ROSUVASTATIN CALCIUM 02/20/2021 12:00:00 AM EDT tablet 90 TAKE ONE TABLET BY MOUTH EMILY DAY TAKE ONE TABLET BY MOUTH EVERY DAY SOLD: 02/21/2021 [facility] tramadol hydrochloride 50 MG Oral Tablet traMADol HCl 50 MG traMADol HCl 50 MG 02/20/2021 12:00:00 AM EDT 1.0 {tablet_as_needed} active traMADol HCl 50 MG eCW1 ([facility]) tramadol hydrochloride 50 MG Oral Tablet traMADol HCl 50 MG traMADol HCl 50 MG 02/20/2021 12:00:00 AM EDT 1.0 {tablet_as_needed} active traMADol HCl 50 MG eCW1 ([facility]) tramadol hydrochloride 50 MG Oral Tablet traMADol HCl 50 MG traMADol HCl 50 MG 02/20/2021 12:00:00 AM EDT 1.0 {tablet_as_needed} ac tive eCW1 ([facility]) tramadol hydrochloride 50 MG Oral Tablet traMADol HCl 50 MG traMADol HCl 50 MG 02/20/2021 12:00:00 AM EDT 1.0 {tablet_as_needed} active traMADol HCl 50 MG eCW1 ([facility]) tramadol hydrochloride 50 MG Oral Tablet traMADol HCl 50 MG traMADol HCl 50 MG 02/20/2021 12:00:00 AM EDT 1.0 {tablet_as_needed} active traMADol HCl 50 MG eCW1 ([facility]) tramadol hydrochloride 50 MG Oral Tablet traMADol HCl 50 MG traMADol HCl 50 MG 02/20/2021 12:00:00 AM EDT 1.0 {tablet_as_needed} active traMADol HCl 50 MG eCW1 ([facility]) Liraglutide 18 MG/3ML UNK 02/19/2021 12:00:00 AM EDT active eCW1 ([facility]) Liraglutide 18 MG/3ML UNK 02/19/2021 12:00:00 AM EDT active Liraglutide 18 MG/3ML eCW1 ([facility]) Liraglutide 18 MG/3ML UNK 02/19/2021 12:00:00 AM EDT active Liraglutide 18 MG/3ML eCW1 ([facility]) Liraglutide 18 MG/3ML UNK 02/19/2021 12:00:00 AM EDT active Liraglutide 18 MG/3ML eCW1 ([facility]) Liraglutide 18 MG/3ML UNK 02/19/2021 12:00:00 AM EDT active Liraglutide 18 MG/3ML eCW1 ([facility]) Liraglutide 18 MG/3ML UNK 02/19/2021 12:00:00 AM EDT active Liraglutide 18 MG/3ML eCW1 ([facility]) Liraglutide 18 MG/3ML UNK 02/19/2021 12:00:00 AM EDT active Liraglutide 18 MG/3ML eCW1 ([facility]) Liraglutide 18 MG/3ML UNK 02/19/2021 12:00:00 AM EDT active Liraglutide 18 MG/3ML eCW1 ([facility]) Belbuca 75 MCG Belbuca 75 MCG 02/19/2021 12:00:00 AM EDT active Belbuca 75 MCG eCW1 ([facility]) Liraglutide 18 MG/3ML UNK 02/19/2021 12:00:00 AM EDT active Liraglutide 18 MG/3ML eCW1 ([facility]) Liraglutide 18 MG/3ML UNK 02/19/2021 12:00:00 AM EDT active eCW1 ([facility]) Liraglutide 18 MG/3ML UNK 02/19/2021 12:00:00 AM EDT active Liraglutide 18 MG/3ML eCW1 ([facility]) Liraglutide 18 MG/3ML UNK 02/19/2021 12:00:00 AM EDT active Liraglutide 18 MG/3ML eCW1 ([facility]) Liraglutide 18 MG/3ML UNK 02/19/2021 12:00:00 AM EDT active eCW1 ([facility]) Liraglutide 18 MG/3ML UNK 02/19/2021 12:00:00 AM EDT active eCW1 ([facility]) Liraglutide 18 MG/3ML UNK 02/19/2021 12:00:00 AM EDT active Liraglutide 18 MG/3ML eCW1 ([facility]) Liraglutide 18 MG/3ML UNK 02/19/2021 12:00:00 AM EDT active Liraglutide 18 MG/3ML eCW1 ([facility]) Liraglutide 18 MG/3ML UNK 02/19/2021 12:00:00 AM EDT active Liraglutide 18 MG/3ML eCW1 ([facility]) 75 mg 02/18/2021 12:00:00 AM EDT tablet 30 TAKE ONE TABLET BY MOUTH EVERY DAY TAKE ONE TABLET BY MOUTH EVERY DAY SOLD: 02/18/2021 [facility] 10 mg 01/22/2021 12:00:00 AM EDT tablet 60 TAKE ONE TABLET BY MOUTH TWICE A DAY * MAXIMUM DAILY DOSE = 2 TAKE ONE TABLET BY MOUTH TWICE A DAY * M AXIMUM DAILY DOSE = 2 SOLD: 01/22/2021 [facility] 200 mg 12/27/2020 12:00:00 AM EDT tablet 6 TAKE ONE TABLET BY MOUTH THREE TIMES A DAY FOR 2 DAYS TAKE ONE TABLET BY MOUTH THREE TIMES A DAY FOR 2 DAYS SOLD: 12/27/2020 [facility] 10 mg 12/27/2020 12:00:00 AM EDT tablet 20 TAKE ONE TABLET BY MOUTH EVERY 6 HOURS FOR 5 DAYS TAKE ONE TABLET BY MOUTH EVERY 6 HOURS FOR 5 DAYS SOLD : 12/27/2020 [facility] NITROFURANTOIN, MACROCRYSTALS 25 MG / Ni trofurantoin, Monohydrate 75 MG Oral Capsule 100 mg NITROFURANTOIN MONOHYD/M-CRYST 12/27/2020 12:00:00 AM EDT ca psule 14 TAKE ONE CAPSULE BY MOUTH TWICE A DAY FOR 7 DAYS TAKE ONE CAPSULE BY MOUTH TWICE A DAY FOR 7 DAYS SOLD: 12/27/2020 [facility] 1 mg 12/25/2020 12:00:00 AM EDT tablet 60 TAKE TWO TABLETS BY MOUTH EVERY DAY TAKE TWO TABLETS BY MOUTH EVERY DAY SOLD: 01/31/2021 [facility] 1 mg 12/25/2020 12:00:00 AM EDT tablet 60 TAKE TWO TABLETS BY MOUTH EVERY DAY TAKE TWO TABLETS BY MOUTH EVERY DAY SOLD: 12/26/2020 [facility] 1 mg 12/25/2020 12:00:00 AM EDT tablet 60 TAKE TWO TABLETS BY MOUTH EVERY DAY TAKE TWO TABLETS BY MOUTH EVERY DAY SOLD: 04/08/2021 [facility] 1 mg 12/25/2020 12:00:00 AM EDT tablet 60 TAKE TWO TABLETS BY MOUTH EVERY DAY TAKE TWO TABLETS BY MOUTH EVERY DAY SOLD: 03/05/2021 [facility] 10 mg 12/22/2020 12:00:00 AM EDT tablet 60 TAKE ONE TABLET BY MOUTH TWICE A DAY MAXIMUM DAILY DOSE = 2 TAKE ONE TABLET BY MOUTH TWICE A DAY MAX IMUM DAILY DOSE = 2 SOLD: 12/23/2020 [facility] 250 mg 12/19/2020 12:00:00 AM EDT tablet,delayed release (DR/EC) 60 TAKE ONE TABLET BY MOUTH TWICE A DAY MAXIMUM DAILY DOSE = 2 TAKE ONE TABLET BY MOUTH TWICE A DAY MAXIMUM DAILY DOSE = 2 SOLD: 12/21/2020 [facility] No Active Medications 12/18/2020 12:00:00 AM EDT completed MEDENT ([facility]) Divalproex Sodium 250 MG Delayed Release Oral Tablet Divalpr oex Sodium 12/18/2020 12:00:00 AM EDT ORAL completed MEDENT ([facility]) Acetaminophen 325 MG / Hydrocodone Bitartrate 5 MG Ora l Tablet 5-325 mg HYDROCODONE/ACETAMINOPHEN 11/28/2020 12:00:00 AM EDT tablet 12 TAKE ONE TABLET BY MOUTH THREE TIMES A DAY NEEDED FOR PAIN, MAXIMUM DAILY DOSE = 3 TABLETS TAKE ONE TABLET BY MOUTH THREE TIMES A DAY NEEDED FOR PAIN, MAXIMUM DAILY DOSE = 3 TABLETS SOLD: 11/28/2020 [facility] 100 mg 11/20/2020 12:00:00 AM EDT tablet 180 TAKE TWO TABLETS BY MOUTH AT BEDTIME TAKE TWO TABLETS BY MOUTH AT BEDTIME SOLD: 11/21/2020 [facility] 10 mg 11/18/2020 12:00:00 AM EDT tablet 60 TAKE ONE TABLET BY MOUTH TWICE A DAY MAXIMUM DAILY DOSE = 2 TAKE ONE TABLET BY MOUTH TWICE A DAY MAX IMUM DAILY DOSE = 2 SOLD: 11/19/2020 [facility] montelukast 10 MG Oral Tablet MONTELUKAST SODIUM 11/14/2020 12:0 0:00 AM EDT tablet 30 TAKE ONE TABLET BY MOUTH AT BEDT BEV TAKE ONE TABLET BY MOUTH AT BEDTIME SOLD: 01/26/2021 [facility] montelukast 10 MG Oral Tablet MONTELUKAST SODIUM 11/14/2020 12:0 0:00 AM EDT tablet 30 TAKE ONE TABLET BY MOUTH AT BEDT BEV TAKE ONE TABLET BY MOUTH AT BEDTIME SOLD: 11/19/2020 [facility] montelukast 10 MG Oral Tablet MONTELUKAST SODIUM 11/14/2020 12:0 0:00 AM EDT tablet 30 TAKE ONE TABLET BY MOUTH AT BEDT BEV TAKE ONE TABLET BY MOUTH AT BEDTIME SOLD: 12/26/2020 [facility] montelukast 10 MG Oral Tablet MONTELUKAST SODIUM 11/14/2020 12:0 0:00 AM EDT tablet 30 TAKE ONE TABLET BY MOUTH AT BEDT BEV TAKE ONE TABLET BY MOUTH AT BEDTIME SOLD: 02/24/2021 [facility] Nortriptyline 25 MG Oral Capsule Nortriptyline HCl 25 MG Nortriptyline HCl 25 MG 11/11/2020 12:00:00 AM EDT 1.0 {capsule} acti ve Nortriptyline HCl 25 MG eCW1 ([facility]) Nortriptyline 25 MG Oral Capsule Nortriptyline HCl 25 MG Nortriptyline HCl 25 MG 11/11/2020 12:00:00 AM EDT 1.0 {capsule} acti ve Nortriptyline HCl 25 MG eCW1 ([facility]) Nortriptyline 25 MG Oral Capsule Nortriptyline HCl 25 MG Nortriptyline HCl 25 MG 11/11/2020 12:00:00 AM EDT 1.0 {capsule} susp ended Nortriptyline HCl 25 MG eCW1 ([facility]) Nortriptyline 25 MG Oral Capsule Nortriptyline HCl 25 MG Nortriptyline HCl 25 MG 11/11/2020 12:00:00 AM EDT 1.0 {capsule} acti ve Nortriptyline HCl 25 MG eCW1 ([facility]) 25 mg 11/11/2020 12:00:00 AM EDT capsule 30 TAKE ONE CAPSULE BY MOUTH EVERY DAY IN THE MORNING TAKE ONE CAPSULE BY MOUTH EVERY DAY IN THE MORNING [facility] Nortriptyline 25 MG Oral Capsule Nortriptyline HCl 25 MG Nortriptyline HCl 25 MG 11/11/2020 12:00:00 AM EDT 1.0 {capsule} acti ve Nortriptyline HCl 25 MG eCW1 ([facility]) Nortriptyline 25 MG Oral Capsule Nortriptyline HCl 25 MG Nortriptyline HCl 25 MG 11/11/2020 12:00:00 AM EDT 1.0 {capsule} susp ended Nortriptyline HCl 25 MG eCW1 ([facility]) Nortriptyline 25 MG Oral Capsule Nortriptyline HCl 25 MG Nortriptyline HCl 25 MG 11/11/2020 12:00:00 AM EDT 1.0 {capsule} acti ve Nortriptyline HCl 25 MG eCW1 ([facility]) Nortriptyline 25 MG Oral Capsule Nortriptyline HCl 25 MG Nortriptyline HCl 25 MG 11/11/2020 12:00:00 AM EDT 1.0 {capsule} acti ve Nortriptyline HCl 25 MG eCW1 ([facility]) Nortriptyline 25 MG Oral Capsule Nortriptyline HCl 25 MG Nortriptyline HCl 25 MG 11/11/2020 12:00:00 AM EDT 1.0 {capsule} acti ve Nortriptyline HCl 25 MG eCW1 ([facility]) Nortriptyline 25 MG Oral Capsule Nortriptyline HCl 25 MG Nortriptyline HCl 25 MG 11/11/2020 12:00:00 AM EDT 1.0 {capsule} acti ve Nortriptyline HCl 25 MG eCW1 ([facility]) Nortriptyline 25 MG Oral Capsule Nortriptyline HCl 25 MG Nortriptyline HCl 25 MG 11/11/2020 12:00:00 AM EDT 1.0 {capsule} acti ve Nortriptyline HCl 25 MG eCW1 ([facility]) Nortriptyline 25 MG Oral Capsule Nortriptyline HCl 25 MG Nortriptyline HCl 25 MG 11/11/2020 12:00:00 AM EDT 1.0 {capsule} acti ve Nortriptyline HCl 25 MG eCW1 ([facility]) Chlorthalidone 25 MG Oral Tablet Chlorthalidone 25 MG 2020 12:00:00 AM EDT 1.0 {tablet_in_the_morning_with_food} active Chlorthalidone 25 MG eCW1 ([facility]) Chlorthalidone 25 MG Oral Tablet CHLORTHALIDONE 11/06/2020 12:0 0:00 AM EDT tablet 90 TAKE ONE TABLET BY MOUTH EVERY D AY IN THE MORNING WITH FOOD TAKE ONE TABLET BY MOUTH EVERY DAY IN THE MORNING WITH FOOD SOLD: 03/29/2021 [facility] Chlorthalidone 25 MG Oral Tablet Chlorthalidone 25 MG 2020 12:00:00 AM EDT 1.0 {tablet_in_the_morning_with_food} active Chlorthalidone 25 MG eCW1 ([facility]) Chlorthalidone 25 MG Oral Tablet Chlorthalidone 25 MG 2020 12:00:00 AM EDT 1.0 {tablet_in_the_morning_with_food} active Chlorthalidone 25 MG eCW1 ([facility]) Chlorthalidone 25 MG Oral Tablet Chlorthalidone 25 MG 2020 12:00:00 AM EDT 1.0 {tablet_in_the_morning_with_food} active Chlorthalidone 25 MG eCW1 ([facility]) Chlorthalidone 25 MG Oral Tablet Chlorthalidone 25 MG 2020 12:00:00 AM EDT 1.0 {tablet_in_the_morning_with_food} active Chlorthalidone 25 MG eCW1 ([facility]) Chlorthalidone 25 MG Oral Tablet Chlorthalidone 25 MG 2020 12:00:00 AM EDT 1.0 {tablet_in_the_morning_with_food} active Chlorthalidone 25 MG eCW1 ([facility]) Chlorthalidone 25 MG Oral Tablet Chlorthalidone 25 MG 2020 12:00:00 AM EDT 1.0 {tablet_in_the_morning_with_food} active Chlorthalidone 25 MG eCW1 ([facility]) Chlorthalidone 25 MG Oral Tablet Chlorthalidone 25 MG 2020 12:00:00 AM EDT 1.0 {tablet_in_the_morning_with_food} active Chlorthalidone 25 MG eCW1 ([facility]) Chlorthalidone 25 MG Oral Tablet Chlorthalidone 25 MG 2020 12:00:00 AM EDT 1.0 {tablet_in_the_morning_with_food} active Chlorthalidone 25 MG eCW1 ([facility]) Chlorthalidone 25 MG Oral Tablet Chlorthalidone 25 MG 2020 12:00:00 AM EDT 1.0 {tablet_in_the_morning_with_food} active Chlorthalidone 25 MG eCW1 ([facility]) Chlorthalidone 25 MG Oral Tablet Chlorthalidone 25 MG 2020 12:00:00 AM EDT 1.0 {tablet_in_the_morning_with_food} active Chlorthalidone 25 MG eCW1 ([facility]) Chlorthalidone 25 MG Oral Tablet Chlorthalidone 25 MG 2020 12:00:00 AM EDT 1.0 {tablet_in_the_morning_with_food} active Chlorthalidone 25 MG eCW1 ([facility]) Chlorthalidone 25 MG Oral Tablet Chlorthalidone 25 MG 2020 12:00:00 AM EDT 1.0 {tablet_in_the_morning_with_food} active Chlorthalidone 25 MG eCW1 ([facility]) 25 mcg 11/06/2020 12:00:00 AM EDT tablet 90 TAKE ONE TABLET BY MOUTH EVERY DAY TAKE ONE TABLET BY MOUTH EVERY DAY SOLD: 02/12/2021 [facility] 25 mcg 11/06/2020 12:00:00 AM EDT tablet 90 TAKE ONE TABLET BY MOUTH EVERY DAY TAKE ONE TABLET BY MOUTH EVERY DAY SOLD: 11/06/2020 [facility] 25 mg 11/06/2020 12:00:00 AM EDT tablet 90 TAKE ONE TABLET BY MOUTH EVERY DAY IN THE MORNING WITH FOOD TAKE ONE TABLET BY MOUTH EVERY DAY IN TH MORNING WITH FOOD SOLD: 11/06/2020 [facility] Chlorthalidone 25 MG Oral Tablet Chlorthalidone 25 MG 2020 12:00:00 AM EDT 1.0 {tablet_in_the_morning_with_food} active Chlorthalidone 25 MG eCW1 ([facility]) carvedilol 12.5 MG Oral Tablet CARVEDILOL 11/06/2020 12:00:00 AM EDT tablet 180 TAKE ONE TABLET BY MOUTH TWICE A DAY TAKE ONE TABLET BY MOUT H TWICE A DAY SOLD: 02/03/2021 [facility] carvedilol 12.5 MG Oral Tablet CARVEDILOL 11/06/2020 12:00:00 AM EDT tablet 180 TAKE ONE TABLET BY MOUTH TWICE A DAY TAKE ONE TABLET BY MOUT H TWICE A DAY SOLD: 11/06/2020 [facility] Chlorthalidone 25 MG Oral Tablet Chlorthalidone 25 MG 2020 12:00:00 AM EDT 1.0 {tablet_in_the_morning_with_food} active Chlorthalidone 25 MG eCW1 ([facility]) 75 mg 10/16/2020 12:00:00 AM EDT tablet 30 TAKE ONE TABLET BY MOUTH EVERY DAY TAKE ONE TABLET BY MOUTH EVERY DAY SOLD: 01/16/2021 [facility] 75 mg 10/16/2020 12:00:00 AM EDT tablet 30 TAKE ONE TABLET BY MOUTH EVERY DAY TAKE ONE TABLET BY MOUTH EVERY DAY SOLD: 12/14/2020 [facility] 75 mg 10/16/2020 12:00:00 AM EDT tablet 30 TAKE ONE TABLET BY MOUTH EVERY DAY TAKE ONE TABLET BY MOUTH EVERY DAY SOLD: 11/14/2020 [facility] 75 mg 10/16/2020 12:00:00 AM EDT tablet 30 TAKE ONE TABLET BY MOUTH EVERY DAY TAKE ONE TABLET BY MOUTH EVERY DAY SOLD: 10/16/2020 [facility] montelukast 10 MG Oral Tablet MONTELUKAST SODIUM 10/16/2020 12:0 0:00 AM EDT tablet 30 TAKE ONE TABLET BY MOUTH AT BEDT BEV TAKE ONE TABLET BY MOUTH AT BEDTIME SOLD: 10/17/2020 [facility] 10 mg 10/14/2020 12:00:00 AM EDT tablet 60 TAKE ONE TABLET BY MOUTH TWICE A DAY MAXIMUM DAILY DOSE = 2 TAKE ONE TABLET BY MOUTH TWICE A DAY MAX IMUM DAILY DOSE = 2 SOLD: 10/14/2020 [facility] 10 mg 09/02/2020 12:00:00 AM EDT tablet 60 TAKE ONE TABLET BY MOUTH TWICE A DAY MAXIMUM DAILY DOSE = 2 TABLETS TAKE ONE TABLET BY MOUTH TWICE A DAY MAX IMUM DAILY DOSE = 2 TABLETS SOLD: 09/04/2020 [facility] Paroxetine Hydrochloride 10 MG Oral Tablet PAROXETINE HCL 08/20/2020 12:00:00 AM EDT tablet 30 TAKE ONE TABLET BY MOUTH EMILY RY MORNING TAKE ONE TABLET BY MOUTH EVERY MORNING SOLD: 08/21/2020 [facility] 30 mg 08/20/2020 12:00:00 AM EDT capsule,delayed release (DR/EC) 60 TAKE ONE CAPSULE BY MOUTH TWICE A DAY WITH MEALS TAKE ONE CAPSULE BY MOUTH TWICE A DAY WITH MEALS SOLD: 03/05/2021 [facility] 30 mg 08/20/2020 12:00:00 AM EDT capsule,delayed release (DR/EC) 60 TAKE ONE CAPSULE BY MOUTH TWICE A DAY WITH MEALS TAKE ONE CAPSULE BY MOUTH TWICE A DAY WITH MEALS SOLD: 04/08/2021 [facility] 30 mg 08/20/2020 12:00:00 AM EDT capsule,delayed release (DR/EC) 60 TAKE ONE CAPSULE BY MOUTH TWICE A DAY WITH MEALS TAKE ONE CAPSULE BY MOUTH TWICE A DAY WITH MEALS SOLD: 08/21/2020 [facility] 30 mg 08/20/2020 12:00:00 AM EDT capsule,delayed release (DR/EC) 60 TAKE ONE CAPSULE BY MOUTH TWICE A DAY WITH MEALS TAKE ONE CAPSULE BY MOUTH TWICE A DAY WITH MEALS SOLD: 01/22/2021 [facility] 100 mg/mL 08/20/2020 12:00:00 AM EDT suspension 300 TAKE 10 MLS BY MOUTH ON AN EMPTY STOMACH DAILY TAKE 10 MLS BY MOUTH ON AN EMPTY STOMACH DAILY SOLD: 08/21/2020 [facility] Sucralfate 100 MG/ML Oral Suspension [Carafate] Carafa te 1 GM/10ML Carafate 1 GM/10ML 08/19/2020 12:00:00 AM EDT 10.0 {ml_on_an_empty_stomach} suspended Carafate 1 GM/10ML eCW1 ([facility]) Sucralfate 100 MG/ML Oral Suspension [Carafate] Carafa te 1 GM/10ML Carafate 1 GM/10ML 08/19/2020 12:00:00 AM EDT 10.0 {ml_on_an_empty_stomach} active Carafate 1 GM/10ML eCW1 ([facility]) Paroxetine HCl 10 MG Paroxetine HCl 10 MG 08/19/2020 12:00:00 AM ED T 1.0 {tablet_in_the_morning} active Paroxeti ne HCl 10 MG eCW1 ([facility]) Sucralfate 100 MG/ML Oral Suspension [Carafate] Carafa te 1 GM/10ML Carafate 1 GM/10ML 08/19/2020 12:00:00 AM EDT 10.0 {ml_on_an_empty_stomach} active Carafate 1 GM/10ML eCW1 ([facility]) Sucralfate 100 MG/ML Oral Suspension [Carafate] Carafa te 1 GM/10ML Carafate 1 GM/10ML 08/19/2020 12:00:00 AM EDT 10.0 {ml_on_an_empty_stomach} active Carafate 1 GM/10ML eCW1 ([facility]) Sucralfate 100 MG/ML Oral Suspension [Carafate] Carafa te 1 GM/10ML Carafate 1 GM/10ML 08/19/2020 12:00:00 AM EDT 10.0 {ml_on_an_empty_stomach} active Carafate 1 GM/10ML eCW1 ([facility]) PARoxetine HCl 10 MG PARoxetine HCl 10 MG 08/19/2020 12:00:00 AM ED T 1.0 {tablet_in_the_morning} active PARoxeti ne HCl 10 MG eCW1 ([facility]) Sucralfate 100 MG/ML Oral Suspension [Carafate] Carafa te 1 GM/10ML Carafate 1 GM/10ML 08/19/2020 12:00:00 AM EDT 10.0 {ml_on_an_empty_stomach} active Carafate 1 GM/10ML eCW1 ([facility]) Sucralfate 100 MG/ML Oral Suspension [Carafate] Carafa te 1 GM/10ML Carafate 1 GM/10ML 08/19/2020 12:00:00 AM EDT 10.0 {ml_on_an_empty_stomach} active Carafate 1 GM/10ML eCW1 ([facility]) lansoprazole 30 MG Delayed Release Oral Capsule Lansop razole 30 MG Lansoprazole 30 MG 08/19/2020 12:00:00 AM EDT 1.0 {capsule_before_a_meal} active Lansoprazole 30 MG eCW1 ([facility]) lansoprazole 30 MG Delayed Release Oral Capsule Lansop razole 30 MG Lansoprazole 30 MG 08/19/2020 12:00:00 AM EDT 1.0 {capsule_before_a_meal} active Lansoprazole 30 MG eCW1 ([facility]) Sucralfate 100 MG/ML Oral Suspension [Carafate] Carafa te 1 GM/10ML Carafate 1 GM/10ML 08/19/2020 12:00:00 AM EDT 10.0 {ml_on_an_empty_stomach} active Carafate 1 GM/10ML eCW1 ([facility]) Sucralfate 100 MG/ML Oral Suspension [Carafate] Carafa te 1 GM/10ML Carafate 1 GM/10ML 08/19/2020 12:00:00 AM EDT 10.0 {ml_on_an_empty_stomach} active Carafate 1 GM/10ML eCW1 ([facility]) PARoxetine HCl 10 MG PARoxetine HCl 10 MG 08/19/2020 12:00:00 AM ED T 1.0 {tablet_in_the_morning} suspended PARoxe dylan HCl 10 MG eCW1 ([facility]) lansoprazole 30 MG Delayed Release Oral Capsule Lansop razole 30 MG Lansoprazole 30 MG 08/19/2020 12:00:00 AM EDT 1.0 {capsule_before_a_meal} active eCW1 ([facility]) Sucralfate 100 MG/ML Oral Suspension [Carafate] Carafa te 1 GM/10ML Carafate 1 GM/10ML 08/19/2020 12:00:00 AM EDT 10.0 {ml_on_an_empty_stomach} active Carafate 1 GM/10ML eCW1 ([facility]) Sucralfate 100 MG/ML Oral Suspension [Carafate] Carafa te 1 GM/10ML Carafate 1 GM/10ML 08/19/2020 12:00:00 AM EDT 10.0 {ml_on_an_empty_stomach} active Carafate 1 GM/10ML eCW1 ([facility]) Paroxetine HCl 10 MG Paroxetine HCl 10 MG 08/19/2020 12:00:00 AM ED T 1.0 {tablet_in_the_morning} active Paroxeti ne HCl 10 MG eCW1 ([facility]) lansoprazole 30 MG Delayed Release Oral Capsule Lansop razole 30 MG Lansoprazole 30 MG 08/19/2020 12:00:00 AM EDT 1.0 {capsule_before_a_meal} active eCW1 ([facility]) PARoxetine HCl 10 MG PARoxetine HCl 10 MG 08/19/2020 12:00:00 AM ED T 1.0 {tablet_in_the_morning} active PARoxeti ne HCl 10 MG eCW1 ([facility]) lansoprazole 30 MG Delayed Release Oral Capsule Lansop razole 30 MG Lansoprazole 30 MG 08/19/2020 12:00:00 AM EDT 1.0 {capsule_before_a_meal} active eCW1 ([facility]) lansoprazole 30 MG Delayed Release Oral Capsule Lansop razole 30 MG Lansoprazole 30 MG 08/19/2020 12:00:00 AM EDT 1.0 {capsule_before_a_meal} active Lansoprazole 30 MG eCW1 ([facility]) PARoxetine HCl 10 MG PARoxetine HCl 10 MG 08/19/2020 12:00:00 AM ED T 1.0 {tablet_in_the_morning} active PARoxeti ne HCl 10 MG eCW1 ([facility]) Paroxetine HCl 10 MG Paroxetine HCl 10 MG 08/19/2020 12:00:00 AM ED T 1.0 {tablet_in_the_morning} active Paroxeti ne HCl 10 MG eCW1 ([facility]) lansoprazole 30 MG Delayed Release Oral Capsule Lansop razole 30 MG Lansoprazole 30 MG 08/19/2020 12:00:00 AM EDT 1.0 {capsule_before_a_meal} active Lansoprazole 30 MG eCW1 ([facility]) lansoprazole 30 MG Delayed Release Oral Capsule Lansop razole 30 MG Lansoprazole 30 MG 08/19/2020 12:00:00 AM EDT 1.0 {capsule_before_a_meal} active Lansoprazole 30 MG eCW1 ([facility]) PARoxetine HCl 10 MG PARoxetine HCl 10 MG 08/19/2020 12:00:00 AM ED T 1.0 {tablet_in_the_morning} active PARoxeti ne HCl 10 MG eCW1 ([facility]) Sucralfate 100 MG/ML Oral Suspension [Carafate] Carafa te 1 GM/10ML Carafate 1 GM/10ML 08/19/2020 12:00:00 AM EDT 10.0 {ml_on_an_empty_stomach} active Carafate 1 GM/10ML eCW1 ([facility]) PARoxetine HCl 10 MG PARoxetine HCl 10 MG 08/19/2020 12:00:00 AM ED T 1.0 {tablet_in_the_morning} active PARoxeti ne HCl 10 MG eCW1 ([facility]) Sucralfate 100 MG/ML Oral Suspension [Carafate] Carafa te 1 GM/10ML Carafate 1 GM/10ML 08/19/2020 12:00:00 AM EDT 10.0 {ml_on_an_empty_stomach} active Carafate 1 GM/10ML eCW1 ([facility]) PARoxetine HCl 10 MG PARoxetine HCl 10 MG 08/19/2020 12:00:00 AM ED T 1.0 {tablet_in_the_morning} active PARoxeti ne HCl 10 MG eCW1 ([facility]) lansoprazole 30 MG Delayed Release Oral Capsule Lansop razole 30 MG Lansoprazole 30 MG 08/19/2020 12:00:00 AM EDT 1.0 {capsule_before_a_meal} active Lansoprazole 30 MG eCW1 ([facility]) lansoprazole 30 MG Delayed Release Oral Capsule Lansop razole 30 MG Lansoprazole 30 MG 08/19/2020 12:00:00 AM EDT 1.0 {capsule_before_a_meal} active Lansoprazole 30 MG eCW1 ([facility]) lansoprazole 30 MG Delayed Release Oral Capsule Lansop razole 30 MG Lansoprazole 30 MG 08/19/2020 12:00:00 AM EDT 1.0 {capsule_before_a_meal} active Lansoprazole 30 MG eCW1 ([facility]) lansoprazole 30 MG Delayed Release Oral Capsule Lansop razole 30 MG Lansoprazole 30 MG 08/19/2020 12:00:00 AM EDT 1.0 {capsule_before_a_meal} active Lansoprazole 30 MG eCW1 ([facility]) lansoprazole 30 MG Delayed Release Oral Capsule Lansop razole 30 MG Lansoprazole 30 MG 08/19/2020 12:00:00 AM EDT 1.0 {capsule_before_a_meal} active Lansoprazole 30 MG eCW1 ([facility]) PARoxetine HCl 10 MG PARoxetine HCl 10 MG 08/19/2020 12:00:00 AM ED T 1.0 {tablet_in_the_morning} active PARoxeti ne HCl 10 MG eCW1 ([facility]) lansoprazole 30 MG Delayed Release Oral Capsule Lansop razole 30 MG Lansoprazole 30 MG 08/19/2020 12:00:00 AM EDT 1.0 {capsule_before_a_meal} active Lansoprazole 30 MG eCW1 ([facility]) lansoprazole 30 MG Delayed Release Oral Capsule Lansop razole 30 MG Lansoprazole 30 MG 08/19/2020 12:00:00 AM EDT 1.0 {capsule_before_a_meal} active Lansoprazole 30 MG eCW1 ([facility]) lansoprazole 30 MG Delayed Release Oral Capsule Lansop razole 30 MG Lansoprazole 30 MG 08/19/2020 12:00:00 AM EDT 1.0 {capsule_before_a_meal} active Lansoprazole 30 MG eCW1 ([facility]) lansoprazole 30 MG Delayed Release Oral Capsule Lansop razole 30 MG Lansoprazole 30 MG 08/19/2020 12:00:00 AM EDT 1.0 {capsule_before_a_meal} active Lansoprazole 30 MG eCW1 ([facility]) Sucralfate 100 MG/ML Oral Suspension [Carafate] Carafa te 1 GM/10ML Carafate 1 GM/10ML 08/19/2020 12:00:00 AM EDT 10.0 {ml_on_an_empty_stomach} active Carafate 1 GM/10ML eCW1 ([facility]) lansoprazole 30 MG Delayed Release Oral Capsule Lansop razole 30 MG Lansoprazole 30 MG 08/19/2020 12:00:00 AM EDT 1.0 {capsule_before_a_meal} active eCW1 ([facility]) PARoxetine HCl 10 MG PARoxetine HCl 10 MG 08/19/2020 12:00:00 AM ED T 1.0 {tablet_in_the_morning} active PARoxeti ne HCl 10 MG eCW1 ([facility]) lansoprazole 30 MG Delayed Release Oral Capsule Lansop razole 30 MG Lansoprazole 30 MG 08/19/2020 12:00:00 AM EDT 1.0 {capsule_before_a_meal} active Lansoprazole 30 MG eCW1 ([facility]) lansoprazole 30 MG Delayed Release Oral Capsule Lansop razole 30 MG Lansoprazole 30 MG 08/19/2020 12:00:00 AM EDT 1.0 {capsule_before_a_meal} active Lansoprazole 30 MG eCW1 ([facility]) lansoprazole 30 MG Delayed Release Oral Capsule Lansop razole 30 MG Lansoprazole 30 MG 08/19/2020 12:00:00 AM EDT 1.0 {capsule_before_a_meal} active Lansoprazole 30 MG eCW1 ([facility]) lansoprazole 30 MG Delayed Release Oral Capsule Lansop razole 30 MG Lansoprazole 30 MG 08/19/2020 12:00:00 AM EDT 1.0 {capsule_before_a_meal} active Lansoprazole 30 MG eCW1 ([facility]) lansoprazole 30 MG Delayed Release Oral Capsule Lansop razole 30 MG Lansoprazole 30 MG 08/19/2020 12:00:00 AM EDT 1.0 {capsule_before_a_meal} active Lansoprazole 30 MG eCW1 ([facility]) Sucralfate 100 MG/ML Oral Suspension [Carafate] Carafa te 1 GM/10ML Carafate 1 GM/10ML 08/19/2020 12:00:00 AM EDT 10.0 {ml_on_an_empty_stomach} active Carafate 1 GM/10ML eCW1 ([facility]) lansoprazole 30 MG Delayed Release Oral Capsule Lansop razole 30 MG Lansoprazole 30 MG 08/19/2020 12:00:00 AM EDT 1.0 {capsule_before_a_meal} active Lansoprazole 30 MG eCW1 ([facility]) Sucralfate 100 MG/ML Oral Suspension [Carafate] Carafa te 1 GM/10ML Carafate 1 GM/10ML 08/19/2020 12:00:00 AM EDT 10.0 {ml_on_an_empty_stomach} active Carafate 1 GM/10ML eCW1 ([facility]) Paroxetine HCl 10 MG Paroxetine HCl 10 MG 08/19/2020 12:00:00 AM ED T 1.0 {tablet_in_the_morning} active Paroxeti ne HCl 10 MG eCW1 ([facility]) PARoxetine HCl 10 MG PARoxetine HCl 10 MG 08/19/2020 12:00:00 AM ED T 1.0 {tablet_in_the_morning} active PARoxeti ne HCl 10 MG eCW1 ([facility]) PARoxetine HCl 10 MG PARoxetine HCl 10 MG 08/19/2020 12:00:00 AM ED T 1.0 {tablet_in_the_morning} active PARoxeti ne HCl 10 MG eCW1 ([facility]) lansoprazole 30 MG Delayed Release Oral Capsule Lansop razole 30 MG Lansoprazole 30 MG 08/19/2020 12:00:00 AM EDT 1.0 {capsule_before_a_meal} active Lansoprazole 30 MG eCW1 ([facility]) lansoprazole 30 MG Delayed Release Oral Capsule Lansop razole 30 MG Lansoprazole 30 MG 08/19/2020 12:00:00 AM EDT 1.0 {capsule_before_a_meal} active Lansoprazole 30 MG eCW1 ([facility]) lansoprazole 30 MG Delayed Release Oral Capsule Lansop razole 30 MG Lansoprazole 30 MG 08/19/2020 12:00:00 AM EDT 1.0 {capsule_before_a_meal} active Lansoprazole 30 MG eCW1 ([facility]) Sucralfate 100 MG/ML Oral Suspension [Carafate] Carafa te 1 GM/10ML Carafate 1 GM/10ML 08/19/2020 12:00:00 AM EDT 10.0 {ml_on_an_empty_stomach} active Carafate 1 GM/10ML eCW1 ([facility]) lansoprazole 30 MG Delayed Release Oral Capsule Lansop razole 30 MG Lansoprazole 30 MG 08/19/2020 12:00:00 AM EDT 1.0 {capsule_before_a_meal} active Lansoprazole 30 MG eCW1 ([facility]) lansoprazole 30 MG Delayed Release Oral Capsule Lansop razole 30 MG Lansoprazole 30 MG 08/19/2020 12:00:00 AM EDT 1.0 {capsule_before_a_meal} active Lansoprazole 30 MG eCW1 ([facility]) lansoprazole 30 MG Delayed Release Oral Capsule Lansop razole 30 MG Lansoprazole 30 MG 08/19/2020 12:00:00 AM EDT 1.0 {capsule_before_a_meal} active Lansoprazole 30 MG eCW1 ([facility]) Sucralfate 100 MG/ML Oral Suspension [Carafate] Carafa te 1 GM/10ML Carafate 1 GM/10ML 08/19/2020 12:00:00 AM EDT 10.0 {ml_on_an_empty_stomach} suspended Carafate 1 GM/10ML eCW1 ([facility]) PARoxetine HCl 10 MG PARoxetine HCl 10 MG 08/19/2020 12:00:00 AM ED T 1.0 {tablet_in_the_morning} active PARoxeti ne HCl 10 MG eCW1 ([facility]) Paroxetine HCl 10 MG Paroxetine HCl 10 MG 08/19/2020 12:00:00 AM ED T 1.0 {tablet_in_the_morning} active Paroxeti ne HCl 10 MG eCW1 ([facility]) PARoxetine HCl 10 MG PARoxetine HCl 10 MG 08/19/2020 12:00:00 AM ED T 1.0 {tablet_in_the_morning} suspended PARoxe dylan HCl 10 MG eCW1 ([facility]) Sucralfate 100 MG/ML Oral Suspension [Carafate] Carafa te 1 GM/10ML Carafate 1 GM/10ML 08/19/2020 12:00:00 AM EDT 10.0 {ml_on_an_empty_stomach} active Carafate 1 GM/10ML eCW1 ([facility]) lansoprazole 30 MG Delayed Release Oral Capsule Lansop razole 30 MG Lansoprazole 30 MG 08/19/2020 12:00:00 AM EDT 1.0 {capsule_before_a_meal} active Lansoprazole 30 MG eCW1 ([facility]) lansoprazole 30 MG Delayed Release Oral Capsule Lansop razole 30 MG Lansoprazole 30 MG 08/19/2020 12:00:00 AM EDT 1.0 {capsule_before_a_meal} active Lansoprazole 30 MG eCW1 ([facility]) lansoprazole 30 MG Delayed Release Oral Capsule Lansop razole 30 MG Lansoprazole 30 MG 08/19/2020 12:00:00 AM EDT 1.0 {capsule_before_a_meal} active Lansoprazole 30 MG eCW1 ([facility]) lansoprazole 30 MG Delayed Release Oral Capsule Lansop razole 30 MG Lansoprazole 30 MG 08/19/2020 12:00:00 AM EDT 1.0 {capsule_before_a_meal} active Lansoprazole 30 MG eCW1 ([facility]) Sucralfate 100 MG/ML Oral Suspension [Carafate] Carafa te 1 GM/10ML Carafate 1 GM/10ML 08/19/2020 12:00:00 AM EDT 10.0 {ml_on_an_empty_stomach} active Carafate 1 GM/10ML eCW1 ([facility]) lansoprazole 30 MG Delayed Release Oral Capsule Lansop razole 30 MG Lansoprazole 30 MG 08/19/2020 12:00:00 AM EDT 1.0 {capsule_before_a_meal} active Lansoprazole 30 MG eCW1 ([facility]) Sucralfate 100 MG/ML Oral Suspension [Carafate] Carafa te 1 GM/10ML Carafate 1 GM/10ML 08/19/2020 12:00:00 AM EDT 10.0 {ml_on_an_empty_stomach} active Carafate 1 GM/10ML eCW1 ([facility]) Paroxetine HCl 10 MG Paroxetine HCl 10 MG 08/19/2020 12:00:00 AM ED T 1.0 {tablet_in_the_morning} active Paroxeti ne HCl 10 MG eCW1 ([facility]) lansoprazole 30 MG Delayed Release Oral Capsule Lansop razole 30 MG Lansoprazole 30 MG 08/19/2020 12:00:00 AM EDT 1.0 {capsule_before_a_meal} active Lansoprazole 30 MG eCW1 ([facility]) PARoxetine HCl 10 MG PARoxetine HCl 10 MG 08/19/2020 12:00:00 AM ED T 1.0 {tablet_in_the_morning} active PARoxeti ne HCl 10 MG eCW1 ([facility]) lansoprazole 30 MG Delayed Release Oral Capsule Lansop razole 30 MG Lansoprazole 30 MG 08/19/2020 12:00:00 AM EDT 1.0 {capsule_before_a_meal} active Lansoprazole 30 MG eCW1 ([facility]) Sucralfate 100 MG/ML Oral Suspension [Carafate] Carafa te 1 GM/10ML Carafate 1 GM/10ML 08/19/2020 12:00:00 AM EDT 10.0 {ml_on_an_empty_stomach} active Carafate 1 GM/10ML eCW1 ([facility]) PARoxetine HCl 10 MG PARoxetine HCl 10 MG 08/19/2020 12:00:00 AM ED T 1.0 {tablet_in_the_morning} active PARoxeti ne HCl 10 MG eCW1 ([facility]) lansoprazole 30 MG Delayed Release Oral Capsule Lansop razole 30 MG Lansoprazole 30 MG 08/19/2020 12:00:00 AM EDT 1.0 {capsule_before_a_meal} active Lansoprazole 30 MG eCW1 ([facility]) Sucralfate 100 MG/ML Oral Suspension [Carafate] Carafa te 1 GM/10ML Carafate 1 GM/10ML 08/19/2020 12:00:00 AM EDT 10.0 {ml_on_an_empty_stomach} active Carafate 1 GM/10ML eCW1 ([facility]) Sucralfate 100 MG/ML Oral Suspension [Carafate] Carafa te 1 GM/10ML Carafate 1 GM/10ML 08/19/2020 12:00:00 AM EDT 10.0 {ml_on_an_empty_stomach} active Carafate 1 GM/10ML eCW1 ([facility]) Paroxetine HCl 10 MG Paroxetine HCl 10 MG 08/19/2020 12:00:00 AM ED T 1.0 {tablet_in_the_morning} active Paroxeti ne HCl 10 MG eCW1 ([facility]) lansoprazole 30 MG Delayed Release Oral Capsule Lansop razole 30 MG Lansoprazole 30 MG 08/19/2020 12:00:00 AM EDT 1.0 {capsule_before_a_meal} active Lansoprazole 30 MG eCW1 ([facility]) PARoxetine HCl 10 MG PARoxetine HCl 10 MG 08/19/2020 12:00:00 AM ED T 1.0 {tablet_in_the_morning} active PARoxeti ne HCl 10 MG eCW1 ([facility]) PARoxetine HCl 10 MG PARoxetine HCl 10 MG 08/19/2020 12:00:00 AM ED T 1.0 {tablet_in_the_morning} active PARoxeti ne HCl 10 MG eCW1 ([facility]) Sucralfate 100 MG/ML Oral Suspension [Carafate] Carafa te 1 GM/10ML Carafate 1 GM/10ML 08/19/2020 12:00:00 AM EDT 10.0 {ml_on_an_empty_stomach} active Carafate 1 GM/10ML eCW1 ([facility]) lansoprazole 30 MG Delayed Release Oral Capsule Lansop razole 30 MG Lansoprazole 30 MG 08/19/2020 12:00:00 AM EDT 1.0 {capsule_before_a_meal} active Lansoprazole 30 MG eCW1 ([facility]) PARoxetine HCl 10 MG PARoxetine HCl 10 MG 08/19/2020 12:00:00 AM ED T 1.0 {tablet_in_the_morning} active PARoxeti ne HCl 10 MG eCW1 ([facility]) lansoprazole 30 MG Delayed Release Oral Capsule Lansop razole 30 MG Lansoprazole 30 MG 08/19/2020 12:00:00 AM EDT 1.0 {capsule_before_a_meal} active Lansoprazole 30 MG eCW1 ([facility]) lansoprazole 30 MG Delayed Release Oral Capsule Lansop razole 30 MG Lansoprazole 30 MG 08/19/2020 12:00:00 AM EDT 1.0 {capsule_before_a_meal} active Lansoprazole 30 MG eCW1 ([facility]) 10 mg 08/15/2020 12:00:00 AM EDT capsule 28 TAKE ONE CAPSULE BY MOUTH EVERY 6 HOURS NEEDED FOR IRRITABLE BOWEL SYMPTOMS TAKE ONE CAPSULE BY MOUTH EVERY 6 HOURS NEEDED FOR IRRITABLE BOWEL SYMPTOMS SOLD: 08/16/2020 [facility] Estradiol 0.1 MG/ML Vaginal Cream Estradiol 0.1 MG/GM Estrad iol 0.1 MG/GM 08/11/2020 12:00:00 AM EDT active Estradiol 0.1 MG/GM eCW1 ([facility]) Estradiol 0.1 MG/ML Vaginal Cream Estradiol 0.1 MG/GM Estrad iol 0.1 MG/GM 08/11/2020 12:00:00 AM EDT active Estradiol 0.1 MG/GM eCW1 ([facility]) Estradiol 0.1 MG/ML Vaginal Cream Estradiol 0.1 MG/GM Estrad iol 0.1 MG/GM 08/11/2020 12:00:00 AM EDT active Estradiol 0.1 MG/GM eCW1 ([facility]) Estradiol 0.1 MG/ML Vaginal Cream Estradiol 0.1 MG/GM Estrad iol 0.1 MG/GM 08/11/2020 12:00:00 AM EDT active Estradiol 0.1 MG/GM eCW1 ([facility]) Phenazopyridine hydrochloride 200 MG Oral Tablet Phena zopyridine HCl 200 MG Phenazopyridine HCl 200 MG 08/08/2020 12:00:00 AM EDT 1.0 {t ablet_after_meals} active Phenazopyridine HCl 200 MG eCW1 ([facility]) Phenazopyridine hydrochloride 200 MG Oral Tablet Phena zopyridine HCl 200 MG Phenazopyridine HCl 200 MG 08/08/2020 12:00:00 AM EDT 1.0 {t ablet_after_meals} active Phenazopyridine HCl 200 MG eCW1 ([facility]) Phenazopyridine hydrochloride 200 MG Oral Tablet Phena zopyridine HCl 200 MG Phenazopyridine HCl 200 MG 08/08/2020 12:00:00 AM EDT 1.0 {t ablet_after_meals} active Phenazopyridine HCl 200 MG eCW1 ([facility]) Ciprofloxacin 500 MG Oral Tablet [Cipro] Cipro 500 MG Cipro 500 MG 08/08/2020 12:00:00 AM EDT 1.0 {tablet} active Ci pro 500 MG eCW1 ([facility]) 500 mg 08/08/2020 12:00:00 AM EDT tablet 6 TAKE ONE TABLET BY MOUTH EVERY 12 HOURS FOR 3 DAYS TAKE ONE TABLET BY MOUTH EVERY 12 HOURS FOR 3 DAYS ANNALISA [facility] Ciprofloxacin 500 MG Oral Tablet [Cipro] Cipro 500 MG Cipro 500 MG 08/08/2020 12:00:00 AM EDT 1.0 {tablet} active Ci pro 500 MG eCW1 ([facility]) Phenazopyridine hydrochloride 200 MG Oral Tablet Phena zopyridine HCl 200 MG Phenazopyridine HCl 200 MG 08/08/2020 12:00:00 AM EDT 1.0 {t ablet_after_meals} active Phenazopyridine HCl 200 MG eCW1 ([facility]) Ciprofloxacin 500 MG Oral Tablet [Cipro] Cipro 500 MG Cipro 500 MG 08/08/2020 12:00:00 AM EDT 1.0 {tablet} active Ci pro 500 MG eCW1 ([facility]) Phenazopyridine hydrochloride 200 MG Oral Tablet Phena zopyridine HCl 200 MG Phenazopyridine HCl 200 MG 08/08/2020 12:00:00 AM EDT 1.0 {t ablet_after_meals} active Phenazopyridine HCl 200 MG eCW1 ([facility]) 200 mg 08/08/2020 12:00:00 AM EDT tablet 6 TAKE ONE TABLET BY MOUTH THREE TIMES A DAY AFTER MEALS TAKE ONE TABLET BY MOUTH THREE TIMES A DAY AFTER MEALS SOLD: 08/08/2020 [facility] Ciprofloxacin 500 MG Oral Tablet [Cipro] Cipro 500 MG Cipro 500 MG 08/08/2020 12:00:00 AM EDT 1.0 {tablet} active Ci pro 500 MG eCW1 ([facility]) Ciprofloxacin 500 MG Oral Tablet [Cipro] Cipro 500 MG Cipro 500 MG 08/08/2020 12:00:00 AM EDT 1.0 {tablet} active Ci pro 500 MG eCW1 ([facility]) Rosuvastatin calcium 40 MG Oral Tablet ROSUVASTATIN CALCIUM 08/01/2020 12:00:00 AM EDT tablet 30 TAKE 1/2 TABLET BY MOUTH ONC E DAILY TAKE 1/2 TABLET BY MOUTH ONCE DAILY SOLD: 08/01/2020 [facility] 10 mg 07/31/2020 12:00:00 AM EDT tablet 60 TAKE ONE TABLET BY MOUTH TWICE A DAY. MAXIMUM DAILY DOSE = 2 TABLETS TAKE ONE TABLET BY MOUTH TWICE A DAY. MAXIMUM DAILY DOSE = 2 TABLETS SOLD: 08/01/2020 [facility] Folic Acid 1 MG Oral Tablet FOLIC ACID 07/29/2020 12:00:00 AM EDT tabl et 60 TAKE TWO TABLETS BY MOUTH EVERY DAY TAKE TWO TABLETS BY MOUTH EVERY DAY SOLD: 08/01/2020 [facility] 1 mg 07/29/2020 12:00:00 AM EDT tablet 60 TAKE TWO TABLETS BY MOUTH EVERY DAY TAKE TWO TABLETS BY MOUTH EVERY DAY SOLD: 10/14/2020 [facility] 1 mg 07/29/2020 12:00:00 AM EDT tablet 60 TAKE TWO TABLETS BY MOUTH EVERY DAY TAKE TWO TABLETS BY MOUTH EVERY DAY SOLD: 11/19/2020 [facility] CPAP 07/25/2020 12:00:00 AM EST active MEDENT ([facility], ) Cyclobenzaprine hydrochloride 10 MG Oral Tablet CYCLOBENZAPR INE HCL 07/12/2020 12:00:00 AM EST tablet 90 TAKE ONE TABLET BY MOUTH THREE TIMES A DAY NEEDED TAKE ONE TABLET BY MOUTH THREE TIMES A DAY NEEDED SOLD: 12/12/2020 [facility] Cyclobenzaprine hydrochloride 10 MG Oral Tablet CYCLOBENZAPR INE HCL 07/12/2020 12:00:00 AM EST tablet 90 TAKE ONE TABLET BY MOUTH THREE TIMES A DAY NEEDED TAKE ONE TABLET BY MOUTH THREE TIMES A DAY NEEDED SOLD: 07/12/2020 [facility] 4 mg 07/08/2020 12:00:00 AM EST tablet,disintegrating 6 0 DISSOLVE ONE TABLET ON TONGUE TWICE A DAY NEEDED DISSOLVE ONE TABLET ON TONGUE TWICE A DA Y NEEDED SOLD: 07/09/2020 [facility] Ondansetron 4 MG Disintegrating Oral Tablet ONDANSETRON 07/08/2020 12:00:00 AM EST tablet,disintegrating 60 DISSOLVE O NE TABLET ON TONGUE TWICE A DAY NEEDED DISSOLVE ONE TABLET ON TONGUE TWICE A DAY NEEDED SOLD: [facility] Ondansetron 4 MG Disintegrating Oral Tablet Ondansetron 4 MG 07/07/2020 12:00:00 AM EST 1.0 {tablet_on_the_tongue_and_allow_to_dissolve} active Ondansetron 4 MG eCW1 ([facility]) Ondansetron 4 MG Disintegrating Oral Tablet Ondansetron 4 MG 07/07/2020 12:00:00 AM EST 1.0 {tablet_on_the_tongue_and_allow_to_dissolve} active Ondansetron 4 MG eC1 ([facility]) Ondansetron 4 MG Disintegrating Oral Tablet Ondansetron 4 MG 07/07/2020 12:00:00 AM EST 1.0 {tablet_on_the_tongue_and_allow_to_dissolve} active Ondansetron 4 MG eC1 ([facility]) Ondansetron 4 MG Disintegrating Oral Tablet Ondansetron 4 MG 07/07/2020 12:00:00 AM EST 1.0 {tablet_on_the_tongue_and_allow_to_dissolve} active Ondansetron 4 MG eCW1 ([facility]) Ondansetron 4 MG Disintegrating Oral Tablet Ondansetron 4 MG 07/07/2020 12:00:00 AM EST 1.0 {tablet_on_the_tongue_and_allow_to_dissolve} active Ondansetron 4 MG eCW1 ([facility]) Ondansetron 4 MG Disintegrating Oral Tablet Ondansetron 4 MG 07/07/2020 12:00:00 AM EST 1.0 {tablet_on_the_tongue_and_allow_to_dissolve} active Ondansetron 4 MG eCW1 ([facility]) Ondansetron 4 MG Disintegrating Oral Tablet Ondansetron 4 MG 07/07/2020 12:00:00 AM EST 1.0 {tablet_on_the_tongue_and_allow_to_dissolve} active Ondansetron 4 MG eCW1 ([facility]) Ondansetron 4 MG Disintegrating Oral Tablet Ondansetron 4 MG 07/07/2020 12:00:00 AM EST 1.0 {tablet_on_the_tongue_and_allow_to_dissolve} active Ondansetron 4 MG eCW1 ([facility]) Ondansetron 4 MG Disintegrating Oral Tablet Ondansetron 4 MG 07/07/2020 12:00:00 AM EST 1.0 {tablet_on_the_tongue_and_allow_to_dissolve} active Ondansetron 4 MG eCW1 ([facility]) Ondansetron 4 MG Disintegrating Oral Tablet Ondansetron 4 MG 07/07/2020 12:00:00 AM EST 1.0 {tablet_on_the_tongue_and_allow_to_dissolve} active Ondansetron 4 MG eCW1 ([facility]) Ondansetron 4 MG Disintegrating Oral Tablet Ondansetron 4 MG 07/07/2020 12:00:00 AM EST 1.0 {tablet_on_the_tongue_and_allow_to_dissolve} suspended Ondansetron 4 MG eCW1 ([facility]) Ondansetron 4 MG Disintegrating Oral Tablet Ondansetron 4 MG 07/07/2020 12:00:00 AM EST 1.0 {tablet_on_the_tongue_and_allow_to_dissolve} active Ondansetron 4 MG eCW1 ([facility]) Ondansetron 4 MG Disintegrating Oral Tablet Ondansetron 4 MG 07/07/2020 12:00:00 AM EST 1.0 {tablet_on_the_tongue_and_allow_to_dissolve} active Ondansetron 4 MG [facility]CW1 [facility] [facility] Ondansetron 4 MG Disintegrating Oral Tablet Ondansetron 4 MG 07/07/2020 12:00:00 AM EST 1.0 {tablet_on_the_tongue_and_allow_to_dissolve} suspended Ondansetron 4 MG eCW1 ([facility]) Ondansetron 4 MG Disintegrating Oral Tablet Ondansetron 4 MG 07/07/2020 12:00:00 AM EST 1.0 {tablet_on_the_tongue_and_allow_to_dissolve} active Ondansetron 4 MG eCW1 ([facility]) Ondansetron 4 MG Disintegrating Oral Tablet Ondansetron 4 MG 07/07/2020 12:00:00 AM EST 1.0 {tablet_on_the_tongue_and_allow_to_dissolve} active Ondansetron 4 MG eCW1 ([facility]) Ondansetron 4 MG Disintegrating Oral Tablet Ondansetron 4 MG 07/07/2020 12:00:00 AM EST 1.0 {tablet_on_the_tongue_and_allow_to_dissolve} active Ondansetron 4 MG eCW1 ([facility]) Ondansetron 4 MG Disintegrating Oral Tablet Ondansetron 4 MG 07/07/2020 12:00:00 AM EST 1.0 {tablet_on_the_tongue_and_allow_to_dissolve} active Ondansetron 4 MG eCW1 ([facility]) Ondansetron 4 MG Disintegrating Oral Tablet Ondansetron 4 MG 07/07/2020 12:00:00 AM EST 1.0 {tablet_on_the_tongue_and_allow_to_dissolve} active Ondansetron 4 MG eCW1 ([facility]) Ondansetron 4 MG Disintegrating Oral Tablet Ondansetron 4 MG 07/07/2020 12:00:00 AM EST 1.0 {tablet_on_the_tongue_and_allow_to_dissolve} active Ondansetron 4 MG eCW1 ([facility]) Ondansetron 4 MG Disintegrating Oral Tablet Ondansetron 4 MG 07/07/2020 12:00:00 AM EST 1.0 {tablet_on_the_tongue_and_allow_to_dissolve} active Ondansetron 4 MG eCW1 ([facility]) Ondansetron 4 MG Disintegrating Oral Tablet Ondansetron 4 MG 07/07/2020 12:00:00 AM EST 1.0 {tablet_on_the_tongue_and_allow_to_dissolve} active Ondansetron 4 MG eCW1 ([facility]) Ondansetron 4 MG Disintegrating Oral Tablet Ondansetron 4 MG 07/07/2020 12:00:00 AM EST 1.0 {tablet_on_the_tongue_and_allow_to_dissolve} active Ondansetron 4 MG eCW1 ([facility]) Ondansetron 4 MG Disintegrating Oral Tablet Ondansetron 4 MG 07/07/2020 12:00:00 AM EST 1.0 {tablet_on_the_tongue_and_allow_to_dissolve} active Ondansetron 4 MG eCW1 ([facility]) Ondansetron 4 MG Disintegrating Oral Tablet Ondansetron 4 MG 07/07/2020 12:00:00 AM EST 1.0 {tablet_on_the_tongue_and_allow_to_dissolve} active Ondansetron 4 MG eCW1 ([facility]) Ondansetron 4 MG Disintegrating Oral Tablet Ondansetron 4 MG 07/07/2020 12:00:00 AM EST 1.0 {tablet_on_the_tongue_and_allow_to_dissolve} active Ondansetron 4 MG eCW1 ([facility]) Ondansetron 4 MG Disintegrating Oral Tablet Ondansetron 4 MG 07/07/2020 12:00:00 AM EST 1.0 {tablet_on_the_tongue_and_allow_to_dissolve} active Ondansetron 4 MG eCW1 ([facility]) Ondansetron 4 MG Disintegrating Oral Tablet Ondansetron 4 MG 07/07/2020 12:00:00 AM EST 1.0 {tablet_on_the_tongue_and_allow_to_dissolve} active Ondansetron 4 MG eCW1 ([facility]) Ondansetron 4 MG Disintegrating Oral Tablet Ondansetron 4 MG 07/07/2020 12:00:00 AM EST 1.0 {tablet_on_the_tongue_and_allow_to_dissolve} active Ondansetron 4 MG eCW1 ([facility]) Ondansetron 4 MG Disintegrating Oral Tablet Ondansetron 4 MG 07/07/2020 12:00:00 AM EST 1.0 {tablet_on_the_tongue_and_allow_to_dissolve} active Ondansetron 4 MG eCW1 ([facility]) Ondansetron 4 MG Disintegrating Oral Tablet Ondansetron 4 MG 07/07/2020 12:00:00 AM EST 1.0 {tablet_on_the_tongue_and_allow_to_dissolve} active Ondansetron 4 MG eCW1 ([facility]) Ondansetron 4 MG Disintegrating Oral Tablet Ondansetron 4 MG 07/07/2020 12:00:00 AM EST 1.0 {tablet_on_the_tongue_and_allow_to_dissolve} active Ondansetron 4 MG eCW1 ([facility]) Ondansetron 4 MG Disintegrating Oral Tablet Ondansetron 4 MG 07/07/2020 12:00:00 AM EST 1.0 {tablet_on_the_tongue_and_allow_to_dissolve} active Ondansetron 4 MG eCW1 ([facility]) Ondansetron 4 MG Disintegrating Oral Tablet Ondansetron 4 MG 07/07/2020 12:00:00 AM EST 1.0 {tablet_on_the_tongue_and_allow_to_dissolve} active Ondansetron 4 MG eCW1 ([facility]) Ondansetron 4 MG Disintegrating Oral Tablet Ondansetron 4 MG 07/07/2020 12:00:00 AM EST 1.0 {tablet_on_the_tongue_and_allow_to_dissolve} active Ondansetron 4 MG eCW1 ([facility]) Ondansetron 4 MG Disintegrating Oral Tablet Ondansetron 4 MG 07/07/2020 12:00:00 AM EST 1.0 {tablet_on_the_tongue_and_allow_to_dissolve} active Ondansetron 4 MG eCW1 ([facility]) Ondansetron 4 MG Disintegrating Oral Tablet Ondansetron 4 MG 07/07/2020 12:00:00 AM EST 1.0 {tablet_on_the_tongue_and_allow_to_dissolve} active Ondansetron 4 MG eCW1 ([facility]) Ondansetron 4 MG Disintegrating Oral Tablet Ondansetron 4 MG 07/07/2020 12:00:00 AM EST 1.0 {tablet_on_the_tongue_and_allow_to_dissolve} active Ondansetron 4 MG eCW1 ([facility]) Ondansetron 4 MG Disintegrating Oral Tablet Ondansetron 4 MG 07/07/2020 12:00:00 AM EST 1.0 {tablet_on_the_tongue_and_allow_to_dissolve} active Ondansetron 4 MG eCW1 ([facility]) 10 mg 07/01/2020 12:00:00 AM EST tablet 60 TAKE ONE TABLET BY MOUTH TWICE A DAY. MAXIMUM DAILY DOSE = 2 TABLETS TAKE ONE TABLET BY MOUTH TWICE A DAY. MAXIMUM DAILY DOSE = 2 TABLETS SOLD: 07/01/2020 [facility] 100 mg 07/01/2020 12:00:00 AM EST capsule 90 TAKE ONE CAPSULE BY MOUTH THREE TIMES A DAY TAKE ONE CAPSULE BY MOUTH THREE TIMES A DAY SOLD: 07/01/2020 [facility] gabapentin 100 MG Oral Capsule Gabapentin 100 MG Gabapentin 100 MG 06/30/2020 12:00:00 AM EST 1.0 {capsule} suspended Gabapentin 100 MG eCW1 ([facility]) gabapentin 100 MG Oral Capsule Gabapentin 100 MG Gabapentin 100 MG 06/30/2020 12:00:00 AM EST 1.0 {capsule} suspended Gabapentin 100 MG eCW1 ([facility]) gabapentin 100 MG Oral Capsule Gabapentin 100 MG Gabapentin 100 MG 06/30/2020 12:00:00 AM EST 1.0 {capsule} suspended Gabapentin 100 MG eCW1 ([facility]) gabapentin 100 MG Oral Capsule Gabapentin 100 MG Gabapentin 100 MG 06/30/2020 12:00:00 AM EST 1.0 {capsule} active G abapentin 100 MG eCW1 ([facility]) gabapentin 100 MG Oral Capsule Gabapentin 100 MG Gabapentin 100 MG 06/30/2020 12:00:00 AM EST 1.0 {capsule} active G abapentin 100 MG eCW1 ([facility]) gabapentin 100 MG Oral Capsule Gabapentin 100 MG Gabapentin 100 MG 06/30/2020 12:00:00 AM EST 1.0 {capsule} active G abapentin 100 MG eCW1 ([facility]) gabapentin 100 MG Oral Capsule Gabapentin 100 MG Gabapentin 100 MG 06/30/2020 12:00:00 AM EST 1.0 {capsule} active G abapentin 100 MG eCW1 ([facility]) gabapentin 100 MG Oral Capsule Gabapentin 100 MG Gabapentin 100 MG 06/30/2020 12:00:00 AM EST 1.0 {capsule} active G abapentin 100 MG eCW1 ([facility]) gabapentin 100 MG Oral Capsule Gabapentin 100 MG Gabapentin 100 MG 06/30/2020 12:00:00 AM EST 1.0 {capsule} active G abapentin 100 MG eCW1 ([facility]) gabapentin 100 MG Oral Capsule Gabapentin 100 MG Gabapentin 100 MG 06/30/2020 12:00:00 AM EST 1.0 {capsule} suspended Gabapentin 100 MG eCW1 ([facility]) gabapentin 100 MG Oral Capsule Gabapentin 100 MG Gabapentin 100 MG 06/30/2020 12:00:00 AM EST 1.0 {capsule} active G abapentin 100 MG eCW1 ([facility]) gabapentin 100 MG Oral Capsule Gabapentin 100 MG Gabapentin 100 MG 06/30/2020 12:00:00 AM EST 1.0 {capsule} active G abapentin 100 MG eCW1 ([facility]) gabapentin 100 MG Oral Capsule Gabapentin 100 MG Gabapentin 100 MG 06/30/2020 12:00:00 AM EST 1.0 {capsule} active G abapentin 100 MG eCW1 ([facility]) gabapentin 100 MG Oral Capsule Gabapentin 100 MG Gabapentin 100 MG 06/30/2020 12:00:00 AM EST 1.0 {capsule} suspended Gabapentin 100 MG eCW1 ([facility]) PredniSONE ([place]) 10mg UNK 06/23/2020 12:00:00 AM EST suspended PredniSONE ([place]) 10mg eCW1 ([facility]) Doxycycline Monohydrate 100 MG Oral Capsule Doxycycline [place] hydrate 100 MG 06/23/2020 12:00:00 AM EST 1.0 {capsule} active Doxycycline Monohydrate 100 MG eCW1 ([facility]) 10 mg 06/23/2020 12:00:00 AM EST tablet 70 TAKE 6 TABLETS BY MOUTH ONCE DAILY FOR 5 DAYS, THEN 5 TABLETS DAILY FOR 3 DAYS, THEN 4 TABLETS DAILY FOR 3 DAYS, THEN 3 TABLETS DAILY FOR 2 DAYS, THEN 2 TABLETS DAILY FOR 2 DAYS, THEN 1 TABLET ONCE DAILY FOR 3 DAYS AND STOP TAKE 6 TABLETS BY MOUTH ONCE DAILY FOR 5 DAYS, THEN 5 TABLETS DAILY FOR 3 DAYS, THEN 4 TABLETS DAILY FOR 3 DAYS, THEN 3 TABLETS DAILY FOR 2 DAYS, THEN 2 TABLETS DAILY FOR 2 DAYS, THEN 1 TABLET ONCE D AILY FOR 3 DAYS AND STOP SOLD: 06/23/2020 [facility] PredniSONE ([place]) 10mg UNK 06/23/2020 12:00:00 AM EST suspended PredniSONE ([place]) 10mg eCW1 ([facility]) PredniSONE ([place]) 10mg UNK 06/23/2020 12:00:00 AM EST active PredniSONE ([place]) 10mg eCW1 ([facility]) PredniSONE ([place]) 10mg UNK 06/23/2020 12:00:00 AM EST active PredniSONE ([place]) 10mg eCW1 ([facility]) PredniSONE ([place]) 10mg UNK 06/23/2020 12:00:00 AM EST suspended PredniSONE ([place]) 10mg eCW1 ([facility]) PredniSONE ([place]) 10mg UNK 06/23/2020 12:00:00 AM EST active PredniSONE ([place]) 10mg eCW1 ([facility]) Doxycycline Monohydrate 100 MG Oral Capsule Doxycycline [place] hydrate 100 MG 06/23/2020 12:00:00 AM EST 1.0 {capsule} active Doxycycline Monohydrate 100 MG eCW1 ([facility]) PredniSONE ([place]) 10mg UNK 06/23/2020 12:00:00 AM EST active PredniSONE ([place]) 10mg eCW1 ([facility]) PredniSONE ([place]) 10mg UNK 06/23/2020 12:00:00 AM EST suspended PredniSONE ([place]) 10mg eCW1 ([facility]) PredniSONE ([place]) 10mg UNK 06/23/2020 12:00:00 AM EST active PredniSONE ([place]) 10mg eCW1 ([facility]) PredniSONE ([place]) 10mg UNK 06/23/2020 12:00:00 AM EST active PredniSONE ([place]) 10mg eCW1 ([facility]) PredniSONE ([place]) 10mg UNK 06/23/2020 12:00:00 AM EST active PredniSONE ([place]) 10mg eCW1 ([facility]) PredniSONE ([place]) 10mg UNK 06/23/2020 12:00:00 AM EST active PredniSONE ([place]) 10mg eCW1 ([facility]) PredniSONE ([place]) 10mg UNK 06/23/2020 12:00:00 AM EST active PredniSONE ([place]) 10mg eCW1 ([facility]) PredniSONE ([place]) 10mg UNK 06/23/2020 12:00:00 AM EST active PredniSONE ([place]) 10mg eCW1 ([facility]) PredniSONE ([place]) 10mg UNK 06/23/2020 12:00:00 AM EST active PredniSONE ([place]) 10mg eCW1 ([facility]) PredniSONE ([place]) 10mg UNK 06/23/2020 12:00:00 AM EST suspended PredniSONE ([place]) 10mg eCW1 ([facility]) Sodium Chloride 0.111 MEQ/ML [place] [[place] brand of sodium chloride] [place] Nasal [place] 0.65 % [place] Nasal [place] 0.65 % 06/20/2020 12:00:00 AM EST active [place] [place] 0.65 % eCW 1 ([facility]) Sodium Chloride 0.111 MEQ/ML [place]al [place] [[place] brand of sodium chloride] [place] Nasal [place] 0.65 % [place] 0.65 % 06/20/2020 12:00:00 AM EST active [place] 0.65 % eCW 1 ([facility]) montelukast 10 MG Oral Tablet MONTELUKAST SODIUM 06/20/2020 12:0 0:00 AM EST tablet 30 TAKE ONE TABLET BY MOUTH AT BEDT BEV TAKE ONE TABLET BY MOUTH AT BEDTIME SOLD: 06/20/2020 [facility] Sodium Chloride 0.111 MEQ/ML [place]al [place] [[place] brand of sodium chloride] [place] Nasal [place] 0.65 % [place] 0.65 % 06/20/2020 12:00:00 AM EST active [place] 0.65 % eCW 1 ([facility]) Sodium Chloride 0.111 MEQ/ML [place] [[place] brand of sodium chloride] [place] Nas[place] 0.65 % [place] 0.65 % 06/20/2020 12:00:00 AM EST active [place] 0.65 % eCW 1 ([facility]) Sodium Chloride 0.111 MEQ/ML [place] [[place] brand of sodium chloride] [place] 0.65 % [place] 0.65 % 06/20/2020 12:00:00 AM EST active eCW1 ([facility]) Sodium Chloride 0.111 MEQ/ML [place] [[place] brand of sodium chloride] [place] 0.65 % [place] 0.65 % 06/20/2020 12:00:00 AM EST active [place] 0.65 % eCW 1 ([facility]) Sodium Chloride 0.111 MEQ/ML [place]al [place] [[place] brand of sodium chloride] [place] Nas[place] 0.65 % [place] 0.65 % 06/20/2020 12:00:00 AM EST active [place] Nas[place] 0.65 % eCW 1 ([facility]) Sodium Chloride 0.111 MEQ/ML [place]al [place] [[place] brand of sodium chloride] [place] 0.65 % [place] 0.65 % 06/20/2020 12:00:00 AM EST active [place] 0.65 % eCW 1 ([facility]) Sodium Chloride 0.111 MEQ/ML [place]al [place] [[place] brand of sodium chloride] [place] 0.65 % [place] 0.65 % 06/20/2020 12:00:00 AM EST active [place] 0.65 % eCW 1 ([facility]) Sodium Chloride 0.111 MEQ/ML Nasal [place] [[place] brand of sodium chloride] [place] Nas[place] 0.65 % [place] 0.65 % 06/20/2020 12:00:00 AM EST active [place] 0.65 % eCW 1 ([facility]) montelukast 10 MG Oral Tablet MONTELUKAST SODIUM 06/20/2020 12:0 0:00 AM EST tablet 30 TAKE ONE TABLET BY MOUTH AT BEDT BEV TAKE ONE TABLET BY MOUTH AT BEDTIME SOLD: 08/21/2020 [facility] Sodium Chloride 0.111 MEQ/ML [place] [[place] brand of sodium chloride] [place] 0.65 % [place] 0.65 % 06/20/2020 12:00:00 AM EST active [place] 0.65 % eCW 1 ([facility]) Sodium Chloride 0.111 MEQ/ML Nasal [place] [[place] brand of sodium chloride] [place] Nas[place] 0.65 % [place] 0.65 % 06/20/2020 12:00:00 AM EST active eCW1 ([facility]) Sodium Chloride 0.111 MEQ/ML [place]al [place] [[place] brand of sodium chloride] [place] 0.65 % [place] 0.65 % 06/20/2020 12:00:00 AM EST active [place] 0.65 % eCW 1 ([facility]) Sodium Chloride 0.111 MEQ/ML [place]al [place] [[place] brand of sodium chloride] [place] 0.65 % [place] 0.65 % 06/20/2020 12:00:00 AM EST active [place] 0.65 % eCW 1 ([facility]) Sodium Chloride 0.111 MEQ/ML Nasal [place] [[place] brand of sodium chloride] [place] 0.65 % [place] 0.65 % 06/20/2020 12:00:00 AM EST active [place] 0.65 % eCW 1 ([facility]) Sodium Chloride 0.111 MEQ/ML Nasal [place] [[place] brand of sodium chloride] [place] 0.65 % [place] 0.65 % 06/20/2020 12:00:00 AM EST active [place] 0.65 % eCW 1 ([facility]) montelukast 10 MG Oral Tablet MONTELUKAST SODIUM 06/20/2020 12:0 0:00 AM EST tablet 30 TAKE ONE TABLET BY MOUTH AT BEDT BEV TAKE ONE TABLET BY MOUTH AT BEDTIME SOLD: 07/21/2020 [facility] Sodium Chloride 0.111 MEQ/ML [place] [[place] brand of sodium chloride] [place] Nas[place] 0.65 % [place] 0.65 % 06/20/2020 12:00:00 AM EST active [place] 0.65 % eCW 1 ([facility]) Sodium Chloride 0.111 MEQ/ML Nasal [place] [[place] brand of sodium chloride] [place] Nas[place] 0.65 % [place] 0.65 % 06/20/2020 12:00:00 AM EST active [place] 0.65 % eCW 1 ([facility]) Sodium Chloride 0.111 MEQ/ML Nas[place] [[place] brand of sodium chloride] [place] Nas[place] 0.65 % [place] 0.65 % 06/20/2020 12:00:00 AM EST active [place] 0.65 % eCW 1 ([facility]) Sodium Chloride 0.111 MEQ/ML [place] [[place] brand of sodium chloride] [place] Nas[place] 0.65 % [place] 0.65 % 06/20/2020 12:00:00 AM EST active [place] 0.65 % eCW 1 ([facility]) Sodium Chloride 0.111 MEQ/ML Nasal [place] [[place] brand of sodium chloride] [place] Nas[place] 0.65 % [place] 0.65 % 06/20/2020 12:00:00 AM EST active [place] 0.65 % eCW 1 ([facility]) Sodium Chloride 0.111 MEQ/ML [place]al [place] [[place] brand of sodium chloride] [place] Nas[place] 0.65 % [place] 0.65 % 06/20/2020 12:00:00 AM EST active [place] 0.65 % eCW 1 ([facility]) Sodium Chloride 0.111 MEQ/ML [place]al [place] [[place] brand of sodium chloride] [place] 0.65 % [place] 0.65 % 06/20/2020 12:00:00 AM EST active [place] 0.65 % eCW 1 ([facility]) Sodium Chloride 0.111 MEQ/ML [place] [[place] brand of sodium chloride] [place] 0.65 % [place] 0.65 % 06/20/2020 12:00:00 AM EST active [place] 0.65 % eCW 1 ([facility]) Sodium Chloride 0.111 MEQ/ML Nasal [place] [[place] brand of sodium chloride] [place] 0.65 % [place] 0.65 % 06/20/2020 12:00:00 AM EST active [place] 0.65 % eCW 1 ([facility]) Sodium Chloride 0.111 MEQ/ML Nasal [place] [[place] brand of sodium chloride] [place] 0.65 % [place] 0.65 % 06/20/2020 12:00:00 AM EST active [place] 0.65 % eCW 1 ([facility]) Sodium Chloride 0.111 MEQ/ML Nasal [place] [[place] brand of sodium chloride] [place] 0.65 % [place] 0.65 % 06/20/2020 12:00:00 AM EST active [place] 0.65 % eCW 1 ([facility]) Sodium Chloride 0.111 MEQ/ML Nasal [place] [[place] brand of sodium chloride] [place] 0.65 % [place] 0.65 % 06/20/2020 12:00:00 AM EST active [place] 0.65 % eCW 1 ([facility]) Sodium Chloride 0.111 MEQ/ML Nasal [place] [[place] brand of sodium chloride] [place] 0.65 % [place] 0.65 % 06/20/2020 12:00:00 AM EST active [place] 0.65 % eCW 1 ([facility]) Sodium Chloride 0.111 MEQ/ML Nasal [place] [[place] brand of sodium chloride] [place] 0.65 % [place] 0.65 % 06/20/2020 12:00:00 AM EST active [place] 0.65 % eCW 1 ([facility]) Sodium Chloride 0.111 MEQ/ML Nasal [place] [[place] brand of sodium chloride] [place] 0.65 % [place] 0.65 % 06/20/2020 12:00:00 AM EST active [place] 0.65 % eCW 1 ([facility]) Sodium Chloride 0.111 MEQ/ML Nasal [place] [[place] brand of sodium chloride] [place] Nas[place] 0.65 % [place] 0.65 % 06/20/2020 12:00:00 AM EST active [place] 0.65 % eCW 1 ([facility]) Sodium Chloride 0.111 MEQ/ML Nasal [place] [[place] brand of sodium chloride] [place] Nas[place] 0.65 % [place] 0.65 % 06/20/2020 12:00:00 AM EST active [place] 0.65 % eCW 1 ([facility]) Sodium Chloride 0.111 MEQ/ML Nasal [place] [[place] brand of sodium chloride] [place] Nas[place] 0.65 % [place] 0.65 % 06/20/2020 12:00:00 AM EST active eCW1 ([facility]) Sodium Chloride 0.111 MEQ/ML [place]al [place] [[place] brand of sodium chloride] [place] Nas[place] 0.65 % [place] 0.65 % 06/20/2020 12:00:00 AM EST active [place] 0.65 % eCW 1 ([facility]) Sodium Chloride 0.111 MEQ/ML [place]al [place] [[place] brand of sodium chloride] [place] 0.65 % [place] 0.65 % 06/20/2020 12:00:00 AM EST active eCW1 ([facility]) Sodium Chloride 0.111 MEQ/ML [place]al [place] [[place] brand of sodium chloride] [place] 0.65 % [place] 0.65 % 06/20/2020 12:00:00 AM EST active [place] 0.65 % eCW 1 ([facility]) Sodium Chloride 0.111 MEQ/ML [place]al [place] [[place] brand of sodium chloride] [place] Nas[place] 0.65 % [place] 0.65 % 06/20/2020 12:00:00 AM EST active [place] 0.65 % eCW 1 ([facility]) Sodium Chloride 0.111 MEQ/ML [place]al [place] [[place] brand of sodium chloride] [place] Nas[place] 0.65 % [place] 0.65 % 06/20/2020 12:00:00 AM EST active [place] 0.65 % eCW 1 ([facility]) Sodium Chloride 0.111 MEQ/ML [place]al [place] [[place] brand of sodium chloride] [place] Nasal [place] 0.65 % [place] 0.65 % 06/20/2020 12:00:00 AM EST active [place] 0.65 % eCW 1 ([facility]) Sodium Chloride 0.111 MEQ/ML Nasal [place] [[place] brand of sodium chloride] [place] Nas[place] 0.65 % [place] 0.65 % 06/20/2020 12:00:00 AM EST active [place] 0.65 % eCW 1 ([facility]) Sodium Chloride 0.111 MEQ/ML [place]al [place] [[place] brand of sodium chloride] [place] 0.65 % [place] 0.65 % 06/20/2020 12:00:00 AM EST active [place] 0.65 % eCW 1 ([facility]) Sodium Chloride 0.111 MEQ/ML [place] [[place] brand of sodium chloride] [place] Nas[place] 0.65 % [place] 0.65 % 06/20/2020 12:00:00 AM EST active [place] 0.65 % eCW 1 ([facility]) Sodium Chloride 0.111 MEQ/ML [place]al [place] [[place] brand of sodium chloride] [place] Nas[place] 0.65 % [place] 0.65 % 06/20/2020 12:00:00 AM EST active [place] 0.65 % eCW 1 ([facility]) Sodium Chloride 0.111 MEQ/ML [place]al [place] [[place] brand of sodium chloride] [place] Nas[place] 0.65 % [place] 0.65 % 06/20/2020 12:00:00 AM EST active [place] 0.65 % eCW 1 ([facility]) Sodium Chloride 0.111 MEQ/ML Nasal [place] [[place] brand of sodium chloride] [place] 0.65 % [place] 0.65 % 06/20/2020 12:00:00 AM EST active [place] 0.65 % eCW 1 ([facility]) Sodium Chloride 0.111 MEQ/ML [place] [[place] brand of sodium chloride] [place] 0.65 % [place] 0.65 % 06/20/2020 12:00:00 AM EST active [place] 0.65 % eCW 1 ([facility]) Sodium Chloride 0.111 MEQ/ML Nasal [place] [[place] brand of sodium chloride] [place] Nasal [place] 0.65 % [place] [facility] [place] 0.65 % 06/20/2020 12:00:00 AM EST active [place] Nasal [place] 0.65 % eCW 1 ([facility]) Sodium Chloride 0.111 MEQ/ML Nasal [place] [[place] brand of sodium chloride] [place] Nasal [place] 0.65 % [place] Nasal [place] 0.65 % 06/20/2020 12:00:00 AM EST active [place] Nasal [place] 0.65 % eCW 1 ([facility]) Sodium Chloride 0.111 MEQ/ML [place]al [place] [[place] brand of sodium chloride] [place] Nas[place] 0.65 % [place] Nas[place] 0.65 % 06/20/2020 12:00:00 AM EST active [place] [place] 0.65 % eCW 1 ([facility]) Sodium Chloride 0.111 MEQ/ML Nasal [place] [[place] brand of sodium chloride] [place] Nasal [place] 0.65 % [place] 0.65 % 06/20/2020 12:00:00 AM EST active [place] Nas[place] 0.65 % eCW 1 ([facility]) Sodium Chloride 0.111 MEQ/ML Nasal [place] [[place] brand of sodium chloride] [place] Nas[place] 0.65 % [place] 0.65 % 06/20/2020 12:00:00 AM EST active [place] 0.65 % eCW 1 ([facility]) Sodium Chloride 0.111 MEQ/ML Nasal [place] [[place] brand of sodium chloride] [place] Nasal [place] 0.65 % [place] Nas[place] 0.65 % 06/20/2020 12:00:00 AM EST active [place] 0.65 % eCW 1 ([facility]) Sodium Chloride 0.111 MEQ/ML Nasal [place] [[place] brand of sodium chloride] [place] Nas[place] 0.65 % [place] 0.65 % 06/20/2020 12:00:00 AM EST active [place] 0.65 % eCW 1 ([facility]) Sodium Chloride 0.111 MEQ/ML Nasal [place] [[place] brand of sodium chloride] [place] Nasal [place] 0.65 % [place] 0.65 % 06/20/2020 12:00:00 AM EST active [place] 0.65 % eCW 1 ([facility]) montelukast 10 MG Oral Tablet MONTELUKAST SODIUM 06/20/2020 12:0 0:00 AM EST tablet 30 TAKE ONE TABLET BY MOUTH AT BEDT BEV TAKE ONE TABLET BY MOUTH AT BEDTIME SOLD: 09/19/2020 [facility] Sodium Chloride 0.111 MEQ/ML Nasal [place] [[place] brand of sodium chloride] [place] Nas[place] 0.65 % [place] 0.65 % 06/20/2020 12:00:00 AM EST active [place] 0.65 % eCW 1 ([facility]) Sodium Chloride 0.111 MEQ/ML Nasal [place] [[place] brand of sodium chloride] [place] Nasal [place] 0.65 % [place] Nas[place] 0.65 % 06/20/2020 12:00:00 AM EST active [place] 0.65 % eCW 1 ([facility]) Sodium Chloride 0.111 MEQ/ML Nasal [place] [[place] brand of sodium chloride] [place] Nas[place] 0.65 % [place] 0.65 % 06/20/2020 12:00:00 AM EST active [place] 0.65 % eCW 1 ([facility]) Sodium Chloride 0.111 MEQ/ML Nasal [place] [[place] brand of sodium chloride] [place] Nas[place] 0.65 % [place] Nas[place] 0.65 % 06/20/2020 12:00:00 AM EST active [place] 0.65 % eCW 1 ([facility]) Sodium Chloride 0.111 MEQ/ML Nasal [place] [[place] brand of sodium chloride] [place] Nas[place] 0.65 % [place] Nas[place] 0.65 % 06/20/2020 12:00:00 AM EST active [place] 0.65 % eCW 1 ([facility]) Sodium Chloride 0.111 MEQ/ML Nasal [place] [[place] brand of sodium chloride] [place] Nas[place] 0.65 % [place] 0.65 % 06/20/2020 12:00:00 AM EST active [place] 0.65 % eCW 1 ([facility]) 100 mg 06/17/2020 12:00:00 AM EST tablet 20 TAKE ONE TABLET BY MOUTH TWICE A DAY FOR 10 DAYS TAKE ONE TABLET BY MOUTH TWICE A DAY FOR 10 DAYS SOLD: 06/17/2020 [facility] Doxycycline Monohydrate 100 MG Oral Tablet Doxycycline Monoh ydrate 06/17/2020 12:00:00 AM EST ORAL completed MEDENT ([facility]) 75 mg 06/11/2020 12:00:00 AM EST tablet 30 TAKE ONE TABLET BY MOUTH EVERY DAY TAKE ONE TABLET BY MOUTH EVERY DAY SOLD: 08/11/2020 [facility] 75 mg 06/11/2020 12:00:00 AM EST tablet 30 TAKE ONE TABLET BY MOUTH EVERY DAY TAKE ONE TABLET BY MOUTH EVERY DAY SOLD: 07/12/2020 [facility] 75 mg 06/11/2020 12:00:00 AM EST tablet 30 TAKE ONE TABLET BY MOUTH EVERY DAY TAKE ONE TABLET BY MOUTH EVERY DAY SOLD: 06/12/2020 [facility] cefdinir 300 MG Oral Capsule Cefdinir 06/04/2020 12:00:00 AM EST ORAL completed MEDENT ([facility]) 300 mg 06/04/2020 12:00:00 AM EST capsule 20 TAKE ONE CAPSULE BY MOUTH TWICE A DAY FOR 10 DAYS TAKE ONE CAPSULE BY MOUTH TWICE A DAY FOR 10 DAYS SOLD : 06/04/2020 [facility] Escitalopram 5 MG Oral Tablet ESCITALOPRAM OXALATE 06/01/2020 12 :00:00 AM EST tablet 30 TAKE ONE TABLET BY MOUTH EVERY D AY TAKE ONE TABLET BY MOUTH EVERY DAY SOLD: 06/02/2020 [facility] Trazodone Hydrochloride 100 MG Oral Tablet TRAZODONE HCL 05/20/2020 12:00:00 AM EST tablet 90 TAKE ONE TABLET BY MOUTH AT BEDTIME TAKE ONE TABLET BY MOUTH AT BEDTIME SOLD: 05/24/2020 [facility] Trazodone Hydrochloride 100 MG Oral Tablet TRAZODONE HCL 05/20/2020 12:00:00 AM EST tablet 90 TAKE ONE TABLET BY MOUTH AT BEDTIME TAKE ONE TABLET BY MOUTH AT BEDTIME SOLD: 08/21/2020 [facility] duloxetine 30 MG Delayed Release Oral Capsule Duloxeti ne HCl 30 MG Duloxetine HCl 30 MG 05/19/2020 12:00:00 AM EST 1.0 {capsule} a ctive Duloxetine HCl 30 MG eCW1 ([facility]) duloxetine 30 MG Delayed Release Oral Capsule Duloxeti ne HCl 30 MG Duloxetine HCl 30 MG 05/19/2020 12:00:00 AM EST 1.0 {capsule} a ctive Duloxetine HCl 30 MG eCW1 ([facility]) duloxetine 30 MG Delayed Release Oral Capsule Duloxeti ne HCl 30 MG Duloxetine HCl 30 MG 05/19/2020 12:00:00 AM EST 1.0 {capsule} a ctive Duloxetine HCl 30 MG eCW1 ([facility]) duloxetine 30 MG Delayed Release Oral Capsule Duloxeti ne HCl 30 MG Duloxetine HCl 30 MG 05/19/2020 12:00:00 AM EST 1.0 {capsule} a ctive Duloxetine HCl 30 MG eCW1 ([facility]) duloxetine 30 MG Delayed Release Oral Capsule Duloxeti ne HCl 30 MG Duloxetine HCl 30 MG 05/19/2020 12:00:00 AM EST 1.0 {capsule} a ctive Duloxetine HCl 30 MG eCW1 ([facility]) duloxetine 30 MG Delayed Release Oral Capsule Duloxeti ne HCl 30 MG Duloxetine HCl 30 MG 05/19/2020 12:00:00 AM EST 1.0 {capsule} a ctive Duloxetine HCl 30 MG eCW1 ([facility]) duloxetine 30 MG Delayed Release Oral Capsule Duloxeti ne HCl 30 MG Duloxetine HCl 30 MG 05/19/2020 12:00:00 AM EST 1.0 {capsule} a ctive Duloxetine HCl 30 MG eCW1 ([facility]) duloxetine 30 MG Delayed Release Oral Capsule Duloxeti ne HCl 30 MG Duloxetine HCl 30 MG 05/19/2020 12:00:00 AM EST 1.0 {capsule} a ctive Duloxetine HCl 30 MG eCW1 ([facility]) duloxetine 30 MG Delayed Release Oral Capsule Duloxeti ne HCl 30 MG Duloxetine HCl 30 MG 05/19/2020 12:00:00 AM EST 1.0 {capsule} a ctive Duloxetine HCl 30 MG eCW1 ([facility]) duloxetine 30 MG Delayed Release Oral Capsule Duloxeti ne HCl 30 MG Duloxetine HCl 30 MG 05/19/2020 12:00:00 AM EST 1.0 {capsule} a ctive Duloxetine HCl 30 MG eCW1 ([facility]) 10 mg 05/19/2020 12:00:00 AM EST tablet 60 TAKE ONE TABLET BY MOUTH TWICE A DAY MAXIMUM DAILY DOSE = 2 TAKE ONE TABLET BY MOUTH TWICE A DAY MAX IMUM DAILY DOSE = 2 SOLD: 05/20/2020 [facility] duloxetine 30 MG Delayed Release Oral Capsule Duloxeti ne HCl 30 MG Duloxetine HCl 30 MG 05/19/2020 12:00:00 AM EST 1.0 {capsule} a ctive Duloxetine HCl 30 MG eCW1 ([facility]) duloxetine 30 MG Delayed Release Oral Capsule Duloxeti ne HCl 30 MG Duloxetine HCl 30 MG 05/19/2020 12:00:00 AM EST 1.0 {capsule} a ctive Duloxetine HCl 30 MG eCW1 ([facility]) duloxetine 30 MG Delayed Release Oral Capsule Duloxeti ne HCl 30 MG Duloxetine HCl 30 MG 05/19/2020 12:00:00 AM EST 1.0 {capsule} a ctive Duloxetine HCl 30 MG eCW1 ([facility]) 50 mg 05/14/2020 12:00:00 AM EST tablet 30 TAKE ONE TABLET BY MOUTH AT BEDTIME TAKE ONE TABLET BY MOUTH AT BEDTIME SOLD: 05/16/2020 [facility] Cephalexin 500 MG Oral Capsule CEPHALEXIN 05/13/2020 12:00:00 AM EST capsule 14 TAKE ONE CAPSULE BY MOUTH EVERY 12 HOURS TAKE ONE CAPS ULE BY MOUTH EVERY 12 HOURS SOLD: 05/13/2020 [facility] 10 mg 05/05/2020 12:00:00 AM EST tablet 30 TAKE ONE TABLET BY MOUTH TWICE A DAY MAXIMUM DAILY DOSE = 2 TAKE ONE TABLET BY MOUTH TWICE A DAY MAX IMUM DAILY DOSE = 2 SOLD: 05/29/2020 [facility] telmisartan 20 MG Oral Tablet Telmisartan 20 MG Telmisartan 20 MG 05/01/2020 12:00:00 AM EST 1.0 {tablet} active Te lmisartan 20 MG eCW1 ([facility]) telmisartan 20 MG Oral Tablet Telmisartan 20 MG Telmisartan 20 MG 05/01/2020 12:00:00 AM EST active Telmisar freed 20 MG eCW1 ([facility]) telmisartan 20 MG Oral Tablet Telmisartan 20 MG Telmisartan 20 MG 05/01/2020 12:00:00 AM EST 1.0 {tablet} active Te lmisartan 20 MG eCW1 ([facility]) telmisartan 20 MG Oral Tablet Telmisartan 20 MG Telmisartan 20 MG 05/01/2020 12:00:00 AM EST 1.0 {tablet} active Te lmisartan 20 MG eCW1 ([facility]) telmisartan 20 MG Oral Tablet Telmisartan 20 MG Telmisartan 20 MG 05/01/2020 12:00:00 AM EST 1.0 {tablet} active Te lmisartan 20 MG eCW1 ([facility]) telmisartan 20 MG Oral Tablet Telmisartan 20 MG Telmisartan 20 MG 05/01/2020 12:00:00 AM EST active Telmisar freed 20 MG eCW1 ([facility]) telmisartan 20 MG Oral Tablet Telmisartan 20 MG Telmisartan 20 MG 05/01/2020 12:00:00 AM EST 1.0 {tablet} active Te lmisartan 20 MG eCW1 ([facility]) telmisartan 20 MG Oral Tablet Telmisartan 20 MG Telmisartan 20 MG 05/01/2020 12:00:00 AM EST 1.0 {tablet} active Te lmisartan 20 MG eCW1 ([facility]) carvedilol 12.5 MG Oral Tablet CARVEDILOL 05/01/2020 12:00:00 AM EST tablet 180 TAKE ONE TABLET BY MOUTH TWICE A DAY WITH FOOD TAKE ON E TABLET BY MOUTH TWICE A DAY WITH FOOD SOLD: 08/01/2020 [facility] telmisartan 20 MG Oral Tablet Telmisartan 20 MG Telmisartan 20 MG 05/01/2020 12:00:00 AM EST 1.0 {tablet} active Te lmisartan 20 MG eCW1 ([facility]) telmisartan 20 MG Oral Tablet TELMISARTAN 05/01/2020 12:00:00 AM EST tablet 30 TAKE 1/2 TABLET BY MOUTH TWO TIMES A DAY TAKE 1/2 TABL ET BY MOUTH TWO TIMES A DAY SOLD: 01/26/2021 [facility] telmisartan 20 MG Oral Tablet TELMISARTAN 05/01/2020 12:00:00 AM EST tablet 30 TAKE 1/2 TABLET BY MOUTH TWO TIMES A DAY TAKE 1/2 TABL ET BY MOUTH TWO TIMES A DAY SOLD: 05/31/2020 [facility] 25 mcg 05/01/2020 12:00:00 AM EST tablet 90 TAKE ONE TABLET BY MOUTH EVERY DAY TAKE ONE TABLET BY MOUTH EVERY DAY SOLD: 08/01/2020 [facility] telmisartan 20 MG Oral Tablet Telmisartan 20 MG Telmisartan 20 MG 05/01/2020 12:00:00 AM EST active Telmisar freed 20 MG eCW1 ([facility]) telmisartan 20 MG Oral Tablet Telmisartan 20 MG Telmisartan 20 MG 05/01/2020 12:00:00 AM EST active Telmisar freed 20 MG eCW1 ([facility]) telmisartan 20 MG Oral Tablet Telmisartan 20 MG Telmisartan 20 MG 05/01/2020 12:00:00 AM EST 1.0 {tablet} active Te lmisartan 20 MG eCW1 ([facility]) 20 mg 05/01/2020 12:00:00 AM EST tablet 10 TAKE ONE TABLET BY MOUTH TWICE A DAY TAKE ONE TABLET BY MOUTH TWICE A DAY SOLD: 05/01/2020 [facility] telmisartan 20 MG Oral Tablet Telmisartan 20 MG Telmisartan 20 MG 05/01/2020 12:00:00 AM EST 1.0 {tablet} active Te lmisartan 20 MG eCW1 ([facility]) carvedilol 12.5 MG Oral Tablet CARVEDILOL 05/01/2020 12:00:00 AM EST tablet 180 TAKE ONE TABLET BY MOUTH TWICE A DAY WITH FOOD TAKE ON E TABLET BY MOUTH TWICE A DAY WITH FOOD SOLD: 05/01/2020 [facility] 25 mcg 05/01/2020 12:00:00 AM EST tablet 90 TAKE ONE TABLET BY MOUTH EVERY DAY TAKE ONE TABLET BY MOUTH EVERY DAY SOLD: 05/01/2020 [facility] telmisartan 20 MG Oral Tablet Telmisartan 20 MG Telmisartan 20 MG 05/01/2020 12:00:00 AM EST 1.0 {tablet} active Te lmisartan 20 MG eCW1 ([facility]) telmisartan 20 MG Oral Tablet TELMISARTAN 05/01/2020 12:00:00 AM EST tablet 30 TAKE 1/2 TABLET BY MOUTH TWO TIMES A DAY TAKE 1/2 TABL ET BY MOUTH TWO TIMES A DAY SOLD: 05/01/2020 [facility] telmisartan 20 MG Oral Tablet Telmisartan 20 MG Telmisartan 20 MG 05/01/2020 12:00:00 AM EST active Telmisar freed 20 MG eCW1 ([facility]) telmisartan 20 MG Oral Tablet Telmisartan 20 MG Telmisartan 20 MG 05/01/2020 12:00:00 AM EST 1.0 {tablet} active Te lmisartan 20 MG eCW1 ([facility]) telmisartan 20 MG Oral Tablet Telmisartan 20 MG Telmisartan 20 MG 05/01/2020 12:00:00 AM EST 1.0 {tablet} active Te lmisartan 20 MG eCW1 ([facility]) telmisartan 20 MG Oral Tablet Telmisartan 20 MG Telmisartan 20 MG 05/01/2020 12:00:00 AM EST 1.0 {tablet} active Te lmisartan 20 MG eCW1 ([facility]) Nebulizer/Tubing/Mouthpiece - Nebulizer/Tubing/Mouthpiece - 04/21/2020 12:00:00 AM EST active Nebulizer/Tubing/ Mouthpiece - eCW1 ([facility]) Nebulizer - Nebulizer - 04/21/2020 12:00:00 AM EST active Nebulizer - eCW1 ([facility]) Nebulizer - Nebulizer - 04/21/2020 12:00:00 AM EST active Nebulizer - eCW1 ([facility]) Nebulizer/Tubing/Mouthpiece - Nebulizer/Tubing/Mouthpiece - 04/21/2020 12:00:00 AM EST active Nebulizer/Tubing/ Mouthpiece - eCW1 ([facility]) Nebulizer - Nebulizer - 04/21/2020 12:00:00 AM EST active Nebulizer - eCW1 ([facility]) Nebulizer - Nebulizer - 04/21/2020 12:00:00 AM EST active Nebulizer - eCW1 ([facility]) Nebulizer/Tubing/Mouthpiece - Nebulizer/Tubing/Mouthpiece - 04/21/2020 12:00:00 AM EST active Nebulizer/Tubing/ Mouthpiece - eCW1 ([facility]) Albuterol 0.83 MG/ML Inhalant Solution Albuterol Sulfa te (2.5 MG/3ML) 0.083% Albuterol Sulfate (2.5 MG/3ML) 0.083% 04/21/2020 12:00:00 AM EST 3.0 {ml_as_needed} active Albuterol Sulfate (2.5 MG/3ML) 0.083% eCW1 ([facility]) Nebulizer/Tubing/Mouthpiece - Nebulizer/Tubing/Mouthpiece - 04/21/2020 12:00:00 AM EST active Nebulizer/Tubing/ Mouthpiece - eCW1 ([facility]) Nebulizer - Nebulizer - 04/21/2020 12:00:00 AM EST active Nebulizer - eCW1 ([facility]) Albuterol 0.83 MG/ML Inhalant Solution Albuterol Sulfa te (2.5 MG/3ML) 0.083% Albuterol Sulfate (2.5 MG/3ML) 0.083% 04/21/2020 12:00:00 AM EST 3.0 {ml_as_needed} active Albuterol Sulfate (2.5 MG/3ML) 0.083% eCW1 ([facility]) Nebulizer - Nebulizer - 04/21/2020 12:00:00 AM EST active eCW1 ([facility]) Nebulizer - Nebulizer - 04/21/2020 12:00:00 AM EST active Nebulizer - eCW1 ([facility]) NEBULIZER AND COMPRESSOR 04/21/2020 12:00:00 AM EST device 1 USE DIRECTED USE DIRECTED SOLD: 04/21/2020 [facility] Nebulizer - Nebulizer - 04/21/2020 12:00:00 AM EST active Nebulizer - eCW1 ([facility]) Albuterol 0.83 MG/ML Inhalant Solution Albuterol Sulfa te (2.5 MG/3ML) 0.083% Albuterol Sulfate (2.5 MG/3ML) 0.083% 04/21/2020 12:00:00 AM EST 3.0 {ml_as_needed} active eCW1 ([facility]) Nebulizer - Nebulizer - 04/21/2020 12:00:00 AM EST active Nebulizer - eCW1 ([facility]) Nebulizer - Nebulizer - 04/21/2020 12:00:00 AM EST active Nebulizer - eCW1 ([facility]) Albuterol 0.83 MG/ML Inhalant Solution Albuterol Sulfa te (2.5 MG/3ML) 0.083% Albuterol Sulfate (2.5 MG/3ML) 0.083% 04/21/2020 12:00:00 AM EST 3.0 {ml_as_needed} active eCW1 ([facility]) Albuterol 0.83 MG/ML Inhalant Solution Albuterol Sulfa te (2.5 MG/3ML) 0.083% Albuterol Sulfate (2.5 MG/3ML) 0.083% 04/21/2020 12:00:00 AM EST 3.0 {ml_as_needed} active Albuterol Sulfate (2.5 MG/3ML) 0.083% W1 ([facility]) Nebulizer - Nebulizer - 04/21/2020 12:00:00 AM EST active Nebulizer - eCW1 ([facility]) Nebulizer/Tubing/Mouthpiece - Nebulizer/Tubing/Mouthpiece - 04/21/2020 12:00:00 AM EST active Nebulizer/Tubing/ Mouthpiece - eCW1 ([facility]) Nebulizer/Tubing/Mouthpiece - Nebulizer/Tubing/Mouthpiece - 04/21/2020 12:00:00 AM EST active Nebulizer/Tubing/ Mouthpiece - eCW1 ([facility]) Nebulizer/Tubing/Mouthpiece - Nebulizer/Tubing/Mouthpiece - 04/21/2020 12:00:00 AM EST active Nebulizer/Tubing/ Mouthpiece - eCW1 ([facility]) Nebulizer/Tubing/Mouthpiece - Nebulizer/Tubing/Mouthpiece - 04/21/2020 12:00:00 AM EST active Nebulizer/Tubing/ Mouthpiece - eCW1 ([facility]) Nebulizer/Tubing/Mouthpiece - Nebulizer/Tubing/Mouthpiece - 04/21/2020 12:00:00 AM EST active Nebulizer/Tubing/ Mouthpiece - eCW1 ([facility]) Albuterol 0.83 MG/ML Inhalant Solution Albuterol Sulfa te (2.5 MG/3ML) 0.083% Albuterol Sulfate (2.5 MG/3ML) 0.083% 04/21/2020 12:00:00 AM EST 3.0 {ml_as_needed} active Albuterol Sulfate (2.5 MG/3ML) 0.083% eCW1 ([facility]) Albuterol 0.83 MG/ML Inhalant Solution Albuterol Sulfa te (2.5 MG/3ML) 0.083% Albuterol Sulfate (2.5 MG/3ML) 0.083% 04/21/2020 12:00:00 AM EST 3.0 {ml_as_needed} active Albuterol Sulfate (2.5 MG/3ML) 0.083% eCW1 ([facility]) Albuterol 0.83 MG/ML Inhalant Solution Albuterol Sulfa te (2.5 MG/3ML) 0.083% Albuterol Sulfate (2.5 MG/3ML) 0.083% 04/21/2020 12:00:00 AM EST 3.0 {ml_as_needed} active Albuterol Sulfate (2.5 MG/3ML) 0.083% eCW1 ([facility]) Nebulizer - Nebulizer - 04/21/2020 12:00:00 AM EST active Nebulizer - eCW1 ([facility]) Nebulizer - Nebulizer - 04/21/2020 12:00:00 AM EST active Nebulizer - eCW1 ([facility]) Nebulizer/Tubing/Mouthpiece - Nebulizer/Tubing/Mouthpiece - 04/21/2020 12:00:00 AM EST active eCW1 ([facility]) Nebulizer - Nebulizer - 04/21/2020 12:00:00 AM EST active Nebulizer - eCW1 ([facility]) Albuterol 0.83 MG/ML Inhalant Solution Albuterol Sulfa te (2.5 MG/3ML) 0.083% Albuterol Sulfate (2.5 MG/3ML) 0.083% 04/21/2020 12:00:00 AM EST 3.0 {ml_as_needed} active Albuterol Sulfate (2.5 MG/3ML) 0.083% eCW1 ([facility]) Nebulizer/Tubing/Mouthpiece - Nebulizer/Tubing/Mouthpiece - 04/21/2020 12:00:00 AM EST active Nebulizer/Tubing/ Mouthpiece - eCW1 ([facility]) Nebulizer/Tubing/Mouthpiece - Nebulizer/Tubing/Mouthpiece - 04/21/2020 12:00:00 AM EST active Nebulizer/Tubing/ Mouthpiece - eCW1 ([facility]) Albuterol 0.83 MG/ML Inhalant Solution Albuterol Sulfa te (2.5 MG/3ML) 0.083% Albuterol Sulfate (2.5 MG/3ML) 0.083% 04/21/2020 12:00:00 AM EST 3.0 {ml_as_needed} active Albuterol Sulfate (2.5 MG/3ML) 0.083% eCW1 ([facility]) Nebulizer - Nebulizer - 04/21/2020 12:00:00 AM EST active Nebulizer - eCW1 ([facility]) Albuterol 0.83 MG/ML Inhalant Solution Albuterol Sulfa te (2.5 MG/3ML) 0.083% Albuterol Sulfate (2.5 MG/3ML) 0.083% 04/21/2020 12:00:00 AM EST 3.0 {ml_as_needed} active Albuterol Sulfate (2.5 MG/3ML) 0.083% eCW1 ([facility]) Albuterol 0.83 MG/ML Inhalant Solution Albuterol Sulfa te (2.5 MG/3ML) 0.083% Albuterol Sulfate (2.5 MG/3ML) 0.083% 04/21/2020 12:00:00 AM EST 3.0 {ml_as_needed} active Albuterol Sulfate (2.5 MG/3ML) 0.083% eCW1 ([facility]) Nebulizer/Tubing/Mouthpiece - Nebulizer/Tubing/Mouthpiece - 04/21/2020 12:00:00 AM EST active Nebulizer/Tubing/ Mouthpiece - eCW1 ([facility]) Nebulizer/Tubing/Mouthpiece - Nebulizer/Tubing/Mouthpiece - 04/21/2020 12:00:00 AM EST active Nebulizer/Tubing/ Mouthpiece - eCW1 ([facility]) Nebulizer/Tubing/Mouthpiece - Nebulizer/Tubing/Mouthpiece - 04/21/2020 12:00:00 AM EST active Nebulizer/Tubing/ Mouthpiece - eCW1 ([facility]) Nebulizer/Tubing/Mouthpiece - Nebulizer/Tubing/Mouthpiece - 04/21/2020 12:00:00 AM EST active Nebulizer/Tubing/ Mouthpiece - eCW1 ([facility]) Nebulizer/Tubing/Mouthpiece - Nebulizer/Tubing/Mouthpiece - 04/21/2020 12:00:00 AM EST active Nebulizer/Tubing/ Mouthpiece - eCW1 ([facility]) Nebulizer/Tubing/Mouthpiece - Nebulizer/Tubing/Mouthpiece - 04/21/2020 12:00:00 AM EST active Nebulizer/Tubing/ Mouthpiece - eCW1 ([facility]) Albuterol 0.83 MG/ML Inhalant Solution Albuterol Sulfa te (2.5 MG/3ML) 0.083% Albuterol Sulfate (2.5 MG/3ML) 0.083% 04/21/2020 12:00:00 AM EST 3.0 {ml_as_needed} active Albuterol Sulfate (2.5 MG/3ML) 0.083% eCW1 ([facility]) Albuterol 0.83 MG/ML Inhalant Solution Albuterol Sulfa te (2.5 MG/3ML) 0.083% Albuterol Sulfate (2.5 MG/3ML) 0.083% 04/21/2020 12:00:00 AM EST 3.0 {ml_as_needed} active Albuterol Sulfate (2.5 MG/3ML) 0.083% eCW1 ([facility]) Nebulizer - Nebulizer - 04/21/2020 12:00:00 AM EST active Nebulizer - eCW1 ([facility]) Albuterol 0.83 MG/ML Inhalant Solution Albuterol Sulfa te (2.5 MG/3ML) 0.083% Albuterol Sulfate (2.5 MG/3ML) 0.083% 04/21/2020 12:00:00 AM EST 3.0 {ml_as_needed} active Albuterol Sulfate (2.5 MG/3ML) 0.083% eCW1 ([facility]) Nebulizer - Nebulizer - 04/21/2020 12:00:00 AM EST active Nebulizer - eCW1 ([facility]) Nebulizer - Nebulizer - 04/21/2020 12:00:00 AM EST active Nebulizer - eCW1 ([facility]) Albuterol 0.83 MG/ML Inhalant Solution Albuterol Sulfa te (2.5 MG/3ML) 0.083% Albuterol Sulfate (2.5 MG/3ML) 0.083% 04/21/2020 12:00:00 AM EST 3.0 {ml_as_needed} active Albuterol Sulfate (2.5 MG/3ML) 0.083% W1 ([facility]) Nebulizer - Nebulizer - 04/21/2020 12:00:00 AM EST active Nebulizer - eCW1 ([facility]) Nebulizer/Tubing/Mouthpiece - Nebulizer/Tubing/Mouthpiece - 04/21/2020 12:00:00 AM EST active Nebulizer/Tubing/ Mouthpiece - eCW1 ([facility]) Nebulizer/Tubing/Mouthpiece - Nebulizer/Tubing/Mouthpiece - 04/21/2020 12:00:00 AM EST active Nebulizer/Tubing/ Mouthpiece - eCW1 ([facility]) Nebulizer - Nebulizer - 04/21/2020 12:00:00 AM EST active Nebulizer - eCW1 ([facility]) Nebulizer - Nebulizer - 04/21/2020 12:00:00 AM EST active Nebulizer - eCW1 ([facility]) Albuterol 0.83 MG/ML Inhalant Solution Albuterol Sulfa te (2.5 MG/3ML) 0.083% Albuterol Sulfate (2.5 MG/3ML) 0.083% 04/21/2020 12:00:00 AM EST 3.0 {ml_as_needed} active Albuterol Sulfate (2.5 MG/3ML) 0.083% eCW1 ([facility]) Albuterol 0.83 MG/ML Inhalant Solution Albuterol Sulfa te (2.5 MG/3ML) 0.083% Albuterol Sulfate (2.5 MG/3ML) 0.083% 04/21/2020 12:00:00 AM EST 3.0 {ml_as_needed} active Albuterol Sulfate (2.5 MG/3ML) 0.083% eCW1 ([facility]) Nebulizer/Tubing/Mouthpiece - Nebulizer/Tubing/Mouthpiece - 04/21/2020 12:00:00 AM EST active Nebulizer/Tubing/ Mouthpiece - eCW1 ([facility]) Albuterol 0.83 MG/ML Inhalant Solution Albuterol Sulfa te (2.5 MG/3ML) 0.083% Albuterol Sulfate (2.5 MG/3ML) 0.083% 04/21/2020 12:00:00 AM EST 3.0 {ml_as_needed} active Albuterol Sulfate (2.5 MG/3ML) 0.083% eCW1 ([facility]) Albuterol 0.83 MG/ML Inhalant Solution Albuterol Sulfa te (2.5 MG/3ML) 0.083% Albuterol Sulfate (2.5 MG/3ML) 0.083% 04/21/2020 12:00:00 AM EST 3.0 {ml_as_needed} active Albuterol Sulfate (2.5 MG/3ML) 0.083% eCW1 ([facility]) Albuterol 0.83 MG/ML Inhalant Solution Albuterol Sulfa te (2.5 MG/3ML) 0.083% Albuterol Sulfate (2.5 MG/3ML) 0.083% 04/21/2020 12:00:00 AM EST 3.0 {ml_as_needed} active Albuterol Sulfate (2.5 MG/3ML) 0.083% eCW1 ([facility]) Albuterol 0.83 MG/ML Inhalant Solution Albuterol Sulfa te (2.5 MG/3ML) 0.083% Albuterol Sulfate (2.5 MG/3ML) 0.083% 04/21/2020 12:00:00 AM EST 3.0 {ml_as_needed} active eCW1 ([facility]) Nebulizer - Nebulizer - 04/21/2020 12:00:00 AM EST active Nebulizer - eCW1 ([facility]) Nebulizer - Nebulizer - 04/21/2020 12:00:00 AM EST active Nebulizer - eCW1 ([facility]) Nebulizer - Nebulizer - 04/21/2020 12:00:00 AM EST active [facility] - [facility] [facility]) Albuterol 0.83 MG/ML Inhalant Solution Albuterol Sulfa te (2.5 MG/3ML) 0.083% Albuterol Sulfate (2.5 MG/3ML) 0.083% 04/21/2020 12:00:00 AM EST 3.0 {ml_as_needed} active Albuterol Sulfate (2.5 MG/3ML) 0.083% W1 ([facility]) Nebulizer/Tubing/Mouthpiece - Nebulizer/Tubing/Mouthpiece - 04/21/2020 12:00:00 AM EST active Nebulizer/Tubing/ Mouthpiece - eCW1 ([facility]) Albuterol 0.83 MG/ML Inhalant Solution Albuterol Sulfa te (2.5 MG/3ML) 0.083% Albuterol Sulfate (2.5 MG/3ML) 0.083% 04/21/2020 12:00:00 AM EST 3.0 {ml_as_needed} active eCW1 ([facility]) Albuterol 0.83 MG/ML Inhalant Solution Albuterol Sulfa te (2.5 MG/3ML) 0.083% Albuterol Sulfate (2.5 MG/3ML) 0.083% 04/21/2020 12:00:00 AM EST 3.0 {ml_as_needed} active Albuterol Sulfate (2.5 MG/3ML) 0.083% eCW1 ([facility]) Nebulizer/Tubing/Mouthpiece - Nebulizer/Tubing/Mouthpiece - 04/21/2020 12:00:00 AM EST active Nebulizer/Tubing/ Mouthpiece - eCW1 ([facility]) Nebulizer - Nebulizer - 04/21/2020 12:00:00 AM EST active Nebulizer - eCW1 ([facility]) Nebulizer/Tubing/Mouthpiece - Nebulizer/Tubing/Mouthpiece - 04/21/2020 12:00:00 AM EST active eCW1 ([facility]) Nebulizer/Tubing/Mouthpiece - Nebulizer/Tubing/Mouthpiece - 04/21/2020 12:00:00 AM EST active Nebulizer/Tubing/ Mouthpiece - eCW1 ([facility]) Albuterol 0.83 MG/ML Inhalant Solution Albuterol Sulfa te (2.5 MG/3ML) 0.083% Albuterol Sulfate (2.5 MG/3ML) 0.083% 04/21/2020 12:00:00 AM EST 3.0 {ml_as_needed} active Albuterol Sulfate (2.5 MG/3ML) 0.083% eCW1 ([facility]) Nebulizer - Nebulizer - 04/21/2020 12:00:00 AM EST active Nebulizer - eCW1 ([facility]) Nebulizer/Tubing/Mouthpiece - Nebulizer/Tubing/Mouthpiece - 04/21/2020 12:00:00 AM EST active Nebulizer/Tubing/ Mouthpiece - eCW1 ([facility]) Nebulizer - Nebulizer - 04/21/2020 12:00:00 AM EST active Nebulizer - eCW1 ([facility]) Nebulizer - Nebulizer - 04/21/2020 12:00:00 AM EST active Nebulizer - eCW1 ([facility]) Nebulizer - Nebulizer - 04/21/2020 12:00:00 AM EST active Nebulizer - eCW1 ([facility]) Nebulizer/Tubing/Mouthpiece - Nebulizer/Tubing/Mouthpiece - 04/21/2020 12:00:00 AM EST active Nebulizer/Tubing/ Mouthpiece - eCW1 ([facility]) Albuterol 0.83 MG/ML Inhalant Solution Albuterol Sulfa te (2.5 MG/3ML) 0.083% Albuterol Sulfate (2.5 MG/3ML) 0.083% 04/21/2020 12:00:00 AM EST 3.0 {ml_as_needed} active Albuterol Sulfate (2.5 MG/3ML) 0.083% eCW1 ([facility]) Albuterol 0.83 MG/ML Inhalant Solution Albuterol Sulfa te (2.5 MG/3ML) 0.083% Albuterol Sulfate (2.5 MG/3ML) 0.083% 04/21/2020 12:00:00 AM EST 3.0 {ml_as_needed} active Albuterol Sulfate (2.5 MG/3ML) 0.083% eCW1 ([facility]) Nebulizer - Nebulizer - 04/21/2020 12:00:00 AM EST active eCW1 ([facility]) Nebulizer - Nebulizer - 04/21/2020 12:00:00 AM EST active Nebulizer - eCW1 ([facility]) Nebulizer/Tubing/Mouthpiece - Nebulizer/Tubing/Mouthpiece - 04/21/2020 12:00:00 AM EST active Nebulizer/Tubing/ Mouthpiece - eCW1 ([facility]) Nebulizer/Tubing/Mouthpiece - Nebulizer/Tubing/Mouthpiece - 04/21/2020 12:00:00 AM EST active Nebulizer/Tubing/ Mouthpiece - eCW1 ([facility]) Nebulizer/Tubing/Mouthpiece - Nebulizer/Tubing/Mouthpiece - 04/21/2020 12:00:00 AM EST active Nebulizer/Tubing/ Mouthpiece - eCW1 ([facility]) Albuterol 0.83 MG/ML Inhalant Solution Albuterol Sulfa te (2.5 MG/3ML) 0.083% Albuterol Sulfate (2.5 MG/3ML) 0.083% 04/21/2020 12:00:00 AM EST 3.0 {ml_as_needed} active Albuterol Sulfate (2.5 MG/3ML) 0.083% eCW1 ([facility]) Nebulizer - Nebulizer - 04/21/2020 12:00:00 AM EST active Nebulizer - eCW1 ([facility]) Albuterol 0.83 MG/ML Inhalant Solution Albuterol Sulfa te (2.5 MG/3ML) 0.083% Albuterol Sulfate (2.5 MG/3ML) 0.083% 04/21/2020 12:00:00 AM EST 3.0 {ml_as_needed} active Albuterol Sulfate (2.5 MG/3ML) 0.083% eCW1 ([facility]) Albuterol 0.83 MG/ML Inhalant Solution Albuterol Sulfa te (2.5 MG/3ML) 0.083% Albuterol Sulfate (2.5 MG/3ML) 0.083% 04/21/2020 12:00:00 AM EST 3.0 {ml_as_needed} active Albuterol Sulfate (2.5 MG/3ML) 0.083% eCW1 ([facility]) Albuterol 0.83 MG/ML Inhalant Solution Albuterol Sulfa te (2.5 MG/3ML) 0.083% Albuterol Sulfate (2.5 MG/3ML) 0.083% 04/21/2020 12:00:00 AM EST 3.0 {ml_as_needed} active Albuterol Sulfate (2.5 MG/3ML) 0.083% eCW1 ([facility]) Nebulizer/Tubing/Mouthpiece - Nebulizer/Tubing/Mouthpiece - 04/21/2020 12:00:00 AM EST active Nebulizer/Tubing/ Mouthpiece - eCW1 ([facility]) Nebulizer - Nebulizer - 04/21/2020 12:00:00 AM EST active Nebulizer - eCW1 ([facility]) Nebulizer/Tubing/Mouthpiece - Nebulizer/Tubing/Mouthpiece - 04/21/2020 12:00:00 AM EST active Nebulizer/Tubing/ Mouthpiece - eCW1 ([facility]) Nebulizer - Nebulizer - 04/21/2020 12:00:00 AM EST active Nebulizer - eCW1 ([facility]) Nebulizer - Nebulizer - 04/21/2020 12:00:00 AM EST active Nebulizer - eCW1 ([facility]) Albuterol 0.83 MG/ML Inhalant Solution Albuterol Sulfa te (2.5 MG/3ML) 0.083% Albuterol Sulfate (2.5 MG/3ML) 0.083% 04/21/2020 12:00:00 AM EST 3.0 {ml_as_needed} active Albuterol Sulfate (2.5 MG/3ML) 0.083% eCW1 ([facility]) Nebulizer/Tubing/Mouthpiece - Nebulizer/Tubing/Mouthpiece - 04/21/2020 12:00:00 AM EST active Nebulizer/Tubing/ Mouthpiece - eCW1 ([facility]) Nebulizer/Tubing/Mouthpiece - Nebulizer/Tubing/Mouthpiece - 04/21/2020 12:00:00 AM EST active Nebulizer/Tubing/ Mouthpiece - eCW1 ([facility]) Nebulizer - Nebulizer - 04/21/2020 12:00:00 AM EST active Nebulizer - eCW1 ([facility]) Albuterol 0.83 MG/ML Inhalant Solution Albuterol Sulfa te (2.5 MG/3ML) 0.083% Albuterol Sulfate (2.5 MG/3ML) 0.083% 04/21/2020 12:00:00 AM EST 3.0 {ml_as_needed} active Albuterol Sulfate (2.5 MG/3ML) 0.083% eCW1 ([facility]) Nebulizer/Tubing/Mouthpiece - Nebulizer/Tubing/Mouthpiece - 04/21/2020 12:00:00 AM EST active Nebulizer/Tubing/ Mouthpiece - eCW1 ([facility]) Nebulizer/Tubing/Mouthpiece - Nebulizer/Tubing/Mouthpiece - 04/21/2020 12:00:00 AM EST active eCW1 ([facility]) Nebulizer/Tubing/Mouthpiece - Nebulizer/Tubing/Mouthpiece - 04/21/2020 12:00:00 AM EST active Nebulizer/Tubing/ Mouthpiece - eCW1 ([facility]) Albuterol 0.83 MG/ML Inhalant Solution Albuterol Sulfa te (2.5 MG/3ML) 0.083% Albuterol Sulfate (2.5 MG/3ML) 0.083% 04/21/2020 12:00:00 AM EST 3.0 {ml_as_needed} active Albuterol Sulfate (2.5 MG/3ML) 0.083% eCW1 ([facility]) Nebulizer - Nebulizer - 04/21/2020 12:00:00 AM EST active Nebulizer - eCW1 ([facility]) Nebulizer - Nebulizer - 04/21/2020 12:00:00 AM EST active Nebulizer - eCW1 ([facility]) Nebulizer - Nebulizer - 04/21/2020 12:00:00 AM EST active Nebulizer - eCW1 ([facility]) Nebulizer - Nebulizer - 04/21/2020 12:00:00 AM EST active eCW1 ([facility]) Albuterol 0.83 MG/ML Inhalant Solution Albuterol Sulfa te (2.5 MG/3ML) 0.083% Albuterol Sulfate (2.5 MG/3ML) 0.083% 04/21/2020 12:00:00 AM EST 3.0 {ml_as_needed} active Albuterol Sulfate (2.5 MG/3ML) 0.083% eCW1 ([facility]) Albuterol 0.83 MG/ML Inhalant Solution Albuterol Sulfa te (2.5 MG/3ML) 0.083% Albuterol Sulfate (2.5 MG/3ML) 0.083% 04/21/2020 12:00:00 AM EST 3.0 {ml_as_needed} active Albuterol Sulfate (2.5 MG/3ML) 0.083% eCW1 ([facility]) Nebulizer/Tubing/Mouthpiece - Nebulizer/Tubing/Mouthpiece - 04/21/2020 12:00:00 AM EST active Nebulizer/Tubing/ Mouthpiece - eCW1 ([facility]) Nebulizer/Tubing/Mouthpiece - Nebulizer/Tubing/Mouthpiece - 04/21/2020 12:00:00 AM EST active Nebulizer/Tubing/ Mouthpiece - eCW1 ([facility]) Amlodipine 2.5 MG Oral Tablet AmLODIPine Besylate 2.5 MG AmLODIPine Besylate 2.5 MG 04/21/2020 12:00:00 AM EST active AmLODIPine Besylate 2.5 MG eCW1 ([facility]) Nebulizer - Nebulizer - 04/21/2020 12:00:00 AM EST active Nebulizer - eCW1 ([facility]) Albuterol 0.83 MG/ML Inhalant Solution Albuterol Sulfa te (2.5 MG/3ML) 0.083% Albuterol Sulfate (2.5 MG/3ML) 0.083% 04/21/2020 12:00:00 AM EST 3.0 {ml_as_needed} active Albuterol Sulfate (2.5 MG/3ML) 0.083% eCW1 ([facility]) Nebulizer - Nebulizer - 04/21/2020 12:00:00 AM EST active Nebulizer - eCW1 ([facility]) Nebulizer - Nebulizer - 04/21/2020 12:00:00 AM EST active Nebulizer - eCW1 ([facility]) Nebulizer/Tubing/Mouthpiece - Nebulizer/Tubing/Mouthpiece - 04/21/2020 12:00:00 AM EST active Nebulizer/Tubing/ Mouthpiece - eCW1 ([facility]) Nebulizer - Nebulizer - 04/21/2020 12:00:00 AM EST active Nebulizer - eCW1 ([facility]) Nebulizer/Tubing/Mouthpiece - Nebulizer/Tubing/Mouthpiece - 04/21/2020 12:00:00 AM EST active Nebulizer/Tubing/ Mouthpiece - eCW1 ([facility]) Nebulizer - Nebulizer - 04/21/2020 12:00:00 AM EST active Nebulizer - eCW1 ([facility]) Nebulizer - Nebulizer - 04/21/2020 12:00:00 AM EST active Nebulizer - eCW1 ([facility]) Nebulizer/Tubing/Mouthpiece - Nebulizer/Tubing/Mouthpiece - 04/21/2020 12:00:00 AM EST active Nebulizer/Tubing/ Mouthpiece - eCW1 ([facility]) 2.5 mg /3 mL (0.083 %) 04/21/2020 12:00:00 AM EST solu tion for nebulization 300 INHALE ONE VIAL VIA NEBULIZER EVERY 6 HO URS NEEDED INHALE ONE VIAL VIA NEBULIZER EVERY 6 HOURS NEEDED SOLD: 04/21/2020 [facility] Nebulizer - Nebulizer - 04/21/2020 12:00:00 AM EST active Nebulizer - eCW1 ([facility]) Nebulizer - Nebulizer - 04/21/2020 12:00:00 AM EST active Nebulizer - eCW1 ([facility]) Nebulizer/Tubing/Mouthpiece - Nebulizer/Tubing/Mouthpiece - 04/21/2020 12:00:00 AM EST active Nebulizer/Tubing/ Mouthpiece - eCW1 ([facility]) Albuterol 0.83 MG/ML Inhalant Solution Albuterol Sulfa te (2.5 MG/3ML) 0.083% Albuterol Sulfate (2.5 MG/3ML) 0.083% 04/21/2020 12:00:00 AM EST 3.0 {ml_as_needed} active Albuterol Sulfate (2.5 MG/3ML) 0.083% eCW1 ([facility]) Nebulizer - Nebulizer - 04/21/2020 12:00:00 AM EST active Nebulizer - eCW1 ([facility]) Nebulizer/Tubing/Mouthpiece - Nebulizer/Tubing/Mouthpiece - 04/21/2020 12:00:00 AM EST active Nebulizer/Tubing/ Mouthpiece - eCW1 ([facility]) Nebulizer/Tubing/Mouthpiece - Nebulizer/Tubing/Mouthpiece - 04/21/2020 12:00:00 AM EST active Nebulizer/Tubing/ Mouthpiece - eCW1 ([facility]) Nebulizer - Nebulizer - 04/21/2020 12:00:00 AM EST active Nebulizer - eCW1 ([facility]) Albuterol 0.83 MG/ML Inhalant Solution Albuterol Sulfa te (2.5 MG/3ML) 0.083% Albuterol Sulfate (2.5 MG/3ML) 0.083% 04/21/2020 12:00:00 AM EST 3.0 {ml_as_needed} active Albuterol Sulfate (2.5 MG/3ML) 0.083% W1 ([facility]) Nebulizer - Nebulizer - 04/21/2020 12:00:00 AM EST active Nebulizer - eCW1 ([facility]) Albuterol 0.83 MG/ML Inhalant Solution Albuterol Sulfa te (2.5 MG/3ML) 0.083% Albuterol Sulfate (2.5 MG/3ML) 0.083% 04/21/2020 12:00:00 AM EST 3.0 {ml_as_needed} active Albuterol Sulfate (2.5 MG/3ML) 0.083% W1 ([facility]) Albuterol 0.83 MG/ML Inhalant Solution Albuterol Sulfa te (2.5 MG/3ML) 0.083% Albuterol Sulfate (2.5 MG/3ML) 0.083% 04/21/2020 12:00:00 AM EST 3.0 {ml_as_needed} active Albuterol Sulfate (2.5 MG/3ML) 0.083% eCW1 ([facility]) Albuterol 0.83 MG/ML Inhalant Solution Albuterol Sulfa te (2.5 MG/3ML) 0.083% Albuterol Sulfate (2.5 MG/3ML) 0.083% 04/21/2020 12:00:00 AM EST 3.0 {ml_as_needed} active Albuterol Sulfate (2.5 MG/3ML) 0.083% eCW1 ([facility]) Nebulizer/Tubing/Mouthpiece - Nebulizer/Tubing/Mouthpiece - 04/21/2020 12:00:00 AM EST active Nebulizer/Tubing/ Mouthpiece - eCW1 ([facility]) Nebulizer/Tubing/Mouthpiece - Nebulizer/Tubing/Mouthpiece - 04/21/2020 12:00:00 AM EST active Nebulizer/Tubing/ Mouthpiece - eCW1 ([facility]) Albuterol 0.83 MG/ML Inhalant Solution Albuterol Sulfa te (2.5 MG/3ML) 0.083% Albuterol Sulfate (2.5 MG/3ML) 0.083% 04/21/2020 12:00:00 AM EST 3.0 {ml_as_needed} active Albuterol Sulfate (2.5 MG/3ML) 0.083% eCW1 ([facility]) Albuterol 0.83 MG/ML Inhalant Solution Albuterol Sulfa te (2.5 MG/3ML) 0.083% Albuterol Sulfate (2.5 MG/3ML) 0.083% 04/21/2020 12:00:00 AM EST 3.0 {ml_as_needed} active Albuterol Sulfate (2.5 MG/3ML) 0.083% W1 ([facility]) Nebulizer/Tubing/Mouthpiece - Nebulizer/Tubing/Mouthpiece - 04/21/2020 12:00:00 AM EST active Nebulizer/Tubing/ Mouthpiece - eCW1 ([facility]) Albuterol 0.83 MG/ML Inhalant Solution Albuterol Sulfa te (2.5 MG/3ML) 0.083% Albuterol Sulfate (2.5 MG/3ML) 0.083% 04/21/2020 12:00:00 AM EST 3.0 {ml_as_needed} active Albuterol Sulfate (2.5 MG/3ML) 0.083% eCW1 ([facility]) Nebulizer/Tubing/Mouthpiece - Nebulizer/Tubing/Mouthpiece - 04/21/2020 12:00:00 AM EST active Nebulizer/Tubing/ Mouthpiece - eCW1 ([facility]) Albuterol 0.83 MG/ML Inhalant Solution Albuterol Sulfa te (2.5 MG/3ML) 0.083% Albuterol Sulfate (2.5 MG/3ML) 0.083% 04/21/2020 12:00:00 AM EST 3.0 {ml_as_needed} active Albuterol Sulfate (2.5 MG/3ML) 0.083% eCW1 ([facility]) Nebulizer/Tubing/Mouthpiece - Nebulizer/Tubing/Mouthpiece - 04/21/2020 12:00:00 AM EST active Nebulizer/Tubing/ Mouthpiece - eCW1 ([facility]) Nebulizer - Nebulizer - 04/21/2020 12:00:00 AM EST active Nebulizer - eCW1 ([facility]) Nebulizer - Nebulizer - 04/21/2020 12:00:00 AM EST active Nebulizer - eCW1 ([facility]) Albuterol 0.83 MG/ML Inhalant Solution Albuterol Sulfa te (2.5 MG/3ML) 0.083% Albuterol Sulfate (2.5 MG/3ML) 0.083% 04/21/2020 12:00:00 AM EST 3.0 {ml_as_needed} active Albuterol Sulfate (2.5 MG/3ML) 0.083% eCW1 ([facility]) Nebulizer/Tubing/Mouthpiece - Nebulizer/Tubing/Mouthpiece - 04/21/2020 12:00:00 AM EST active Nebulizer/Tubing/ Mouthpiece - eCW1 ([facility]) Albuterol 0.83 MG/ML Inhalant Solution Albuterol Sulfa te (2.5 MG/3ML) 0.083% Albuterol Sulfate (2.5 MG/3ML) 0.083% 04/21/2020 12:00:00 AM EST 3.0 {ml_as_needed} active Albuterol Sulfate (2.5 MG/3ML) 0.083% eCW1 ([facility]) Nebulizer - Nebulizer - 04/21/2020 12:00:00 AM EST active Nebulizer - eCW1 ([facility]) Nebulizer/Tubing/Mouthpiece - Nebulizer/Tubing/Mouthpiece - 04/21/2020 12:00:00 AM EST active Nebulizer/Tubing/ Mouthpiece - eCW1 ([facility]) Nebulizer/Tubing/Mouthpiece - Nebulizer/Tubing/Mouthpiece - 04/21/2020 12:00:00 AM EST active Nebulizer/Tubing/ Mouthpiece - eCW1 ([facility]) Nebulizer/Tubing/Mouthpiece - Nebulizer/Tubing/Mouthpiece - 04/21/2020 12:00:00 AM EST active Nebulizer/Tubing/ Mouthpiece - eCW1 ([facility]) Albuterol 0.83 MG/ML Inhalant Solution Albuterol Sulfa te (2.5 MG/3ML) 0.083% Albuterol Sulfate (2.5 MG/3ML) 0.083% 04/21/2020 12:00:00 AM EST 3.0 {ml_as_needed} active Albuterol Sulfate (2.5 MG/3ML) 0.083% W1 ([facility]) Nebulizer/Tubing/Mouthpiece - Nebulizer/Tubing/Mouthpiece - 04/21/2020 12:00:00 AM EST active Nebulizer/Tubing/ Mouthpiece - eCW1 ([facility]) Nebulizer - Nebulizer - 04/21/2020 12:00:00 AM EST active Nebulizer - eCW1 ([facility]) Nebulizer - Nebulizer - 04/21/2020 12:00:00 AM EST active Nebulizer - eCW1 ([facility]) Albuterol 0.83 MG/ML Inhalant Solution Albuterol Sulfa te (2.5 MG/3ML) 0.083% Albuterol Sulfate (2.5 MG/3ML) 0.083% 04/21/2020 12:00:00 AM EST 3.0 {ml_as_needed} active Albuterol Sulfate (2.5 MG/3ML) 0.083% eCW1 ([facility]) Albuterol 0.83 MG/ML Inhalant Solution Albuterol Sulfa te (2.5 MG/3ML) 0.083% Albuterol Sulfate (2.5 MG/3ML) 0.083% 04/21/2020 12:00:00 AM EST 3.0 {ml_as_needed} active Albuterol Sulfate (2.5 MG/3ML) 0.083% eCW1 ([facility]) Albuterol 0.83 MG/ML Inhalant Solution Albuterol Sulfa te (2.5 MG/3ML) 0.083% Albuterol Sulfate (2.5 MG/3ML) 0.083% 04/21/2020 12:00:00 AM EST 3.0 {ml_as_needed} active Albuterol Sulfate (2.5 MG/3ML) 0.083% eCW1 ([facility]) Nebulizer - Nebulizer - 04/21/2020 12:00:00 AM EST active Nebulizer - eCW1 ([facility]) Nebulizer/Tubing/Mouthpiece - Nebulizer/Tubing/Mouthpiece - 04/21/2020 12:00:00 AM EST active Nebulizer/Tubing/ Mouthpiece - eCW1 ([facility]) Nebulizer/Tubing/Mouthpiece - Nebulizer/Tubing/Mouthpiece - 04/21/2020 12:00:00 AM EST active Nebulizer/Tubing/ Mouthpiece - eCW1 ([facility]) Nebulizer/Tubing/Mouthpiece - Nebulizer/Tubing/Mouthpiece - 04/21/2020 12:00:00 AM EST active Nebulizer/Tubing/ Mouthpiece - eCW1 ([facility]) Albuterol 0.83 MG/ML Inhalant Solution Albuterol Sulfa te (2.5 MG/3ML) 0.083% Albuterol Sulfate (2.5 MG/3ML) 0.083% 04/21/2020 12:00:00 AM EST 3.0 {ml_as_needed} active Albuterol Sulfate (2.5 MG/3ML) 0.083% eCW1 ([facility]) Albuterol 0.83 MG/ML Inhalant Solution Albuterol Sulfa te (2.5 MG/3ML) 0.083% Albuterol Sulfate (2.5 MG/3ML) 0.083% 04/21/2020 12:00:00 AM EST 3.0 {ml_as_needed} active Albuterol Sulfate (2.5 MG/3ML) 0.083% eCW1 ([facility]) Nebulizer - Nebulizer - 04/21/2020 12:00:00 AM EST active Nebulizer - eCW1 ([facility]) Nebulizer - Nebulizer - 04/21/2020 12:00:00 AM EST active Nebulizer - eCW1 ([facility]) Nebulizer/Tubing/Mouthpiece - Nebulizer/Tubing/Mouthpiece - 04/21/2020 12:00:00 AM EST active Nebulizer/Tubing/ Mouthpiece - eCW1 ([facility]) Nebulizer - Nebulizer - 04/21/2020 12:00:00 AM EST active Nebulizer - eCW1 ([facility]) Nebulizer/Tubing/Mouthpiece - Nebulizer/Tubing/Mouthpiece - 04/21/2020 12:00:00 AM EST active Nebulizer/Tubing/ Mouthpiece - eCW1 ([facility]) Albuterol 0.83 MG/ML Inhalant Solution Albuterol Sulfa te (2.5 MG/3ML) 0.083% Albuterol Sulfate (2.5 MG/3ML) 0.083% 04/21/2020 12:00:00 AM EST 3.0 {ml_as_needed} active Albuterol Sulfate (2.5 MG/3ML) 0.083% eCW1 ([facility]) Albuterol 0.83 MG/ML Inhalant Solution Albuterol Sulfa te (2.5 MG/3ML) 0.083% Albuterol Sulfate (2.5 MG/3ML) 0.083% 04/21/2020 12:00:00 AM EST 3.0 {ml_as_needed} active Albuterol Sulfate (2.5 MG/3ML) 0.083% eCW1 ([facility]) Nebulizer - Nebulizer - 04/21/2020 12:00:00 AM EST active Nebulizer - eCW1 ([facility]) Albuterol 0.83 MG/ML Inhalant Solution Albuterol Sulfa te (2.5 MG/3ML) 0.083% Albuterol Sulfate (2.5 MG/3ML) 0.083% 04/21/2020 12:00:00 AM EST 3.0 {ml_as_needed} active Albuterol Sulfate (2.5 MG/3ML) 0.083% eCW1 ([facility]) Nebulizer/Tubing/Mouthpiece - Nebulizer/Tubing/Mouthpiece - 04/21/2020 12:00:00 AM EST active Nebulizer/Tubing/ Mouthpiece - eCW1 ([facility]) Albuterol 0.83 MG/ML Inhalant Solution Albuterol Sulfa te (2.5 MG/3ML) 0.083% Albuterol Sulfate (2.5 MG/3ML) 0.083% 04/21/2020 12:00:00 AM EST 3.0 {ml_as_needed} active Albuterol Sulfate (2.5 MG/3ML) 0.083% eCW1 ([facility]) Albuterol 0.83 MG/ML Inhalant Solution Albuterol Sulfa te (2.5 MG/3ML) 0.083% Albuterol Sulfate (2.5 MG/3ML) 0.083% 04/21/2020 12:00:00 AM EST 3.0 {ml_as_needed} active Albuterol Sulfate (2.5 MG/3ML) 0.083% eCW1 ([facility]) Nebulizer - Nebulizer - 04/21/2020 12:00:00 AM EST active Nebulizer - eCW1 ([facility]) Nebulizer/Tubing/Mouthpiece - Nebulizer/Tubing/Mouthpiece - 04/21/2020 12:00:00 AM EST active Nebulizer/Tubing/ Mouthpiece - eCW1 ([facility]) Nebulizer/Tubing/Mouthpiece - Nebulizer/Tubing/Mouthpiece - 04/21/2020 12:00:00 AM EST active Nebulizer/Tubing/ Mouthpiece - eCW1 ([facility]) Nebulizer - Nebulizer - 04/21/2020 12:00:00 AM EST active Nebulizer - eCW1 ([facility]) Nebulizer - Nebulizer - 04/21/2020 12:00:00 AM EST active Nebulizer - eCW1 ([facility]) Nebulizer/Tubing/Mouthpiece - Nebulizer/Tubing/Mouthpiece - 04/21/2020 12:00:00 AM EST active Nebulizer/Tubing/ Mouthpiece - eCW1 ([facility]) Albuterol 0.83 MG/ML Inhalant Solution Albuterol Sulfa te (2.5 MG/3ML) 0.083% Albuterol Sulfate (2.5 MG/3ML) 0.083% 04/21/2020 12:00:00 AM EST 3.0 {ml_as_needed} active Albuterol Sulfate (2.5 MG/3ML) 0.083% eCW1 ([facility]) Albuterol 0.83 MG/ML Inhalant Solution Albuterol Sulfa te (2.5 MG/3ML) 0.083% Albuterol Sulfate (2.5 MG/3ML) 0.083% 04/21/2020 12:00:00 AM EST 3.0 {ml_as_needed} active Albuterol Sulfate (2.5 MG/3ML) 0.083% eCW1 ([facility]) Nebulizer/Tubing/Mouthpiece - Nebulizer/Tubing/Mouthpiece - 04/21/2020 12:00:00 AM EST active eCW1 ([facility]) Nebulizer/Tubing/Mouthpiece - Nebulizer/Tubing/Mouthpiece - 04/21/2020 12:00:00 AM EST active Nebulizer/Tubing/ Mouthpiece - eCW1 ([facility]) Albuterol 0.83 MG/ML Inhalant Solution Albuterol Sulfa te (2.5 MG/3ML) 0.083% Albuterol Sulfate (2.5 MG/3ML) 0.083% 04/21/2020 12:00:00 AM EST 3.0 {ml_as_needed} active Albuterol Sulfate (2.5 MG/3ML) 0.083% eCW1 ([facility]) Nebulizer - Nebulizer - 04/21/2020 12:00:00 AM EST active Nebulizer - eCW1 ([facility]) Nebulizer - Nebulizer - 04/21/2020 12:00:00 AM EST active Nebulizer - eCW1 ([facility]) Nebulizer - Nebulizer - 04/21/2020 12:00:00 AM EST active Nebulizer - eCW1 ([facility]) Nebulizer/Tubing/Mouthpiece - Nebulizer/Tubing/Mouthpiece - 04/21/2020 12:00:00 AM EST active Nebulizer/Tubing/ Mouthpiece - eCW1 ([facility]) Nebulizer - Nebulizer - 04/21/2020 12:00:00 AM EST active Nebulizer - eCW1 ([facility]) 2.5 mg 04/21/2020 12:00:00 AM EST tablet 30 TAKE ONE TABLET BY MOUTH ONCE DAILY FOR BLOOD PRESSURE OVER 140/90 TAKE ONE TABLET BY MOUTH ONCE DAILY FOR BLOOD PRESSURE OVER 140/90 SOLD: 04/21/2020 [facility] Nebulizer/Tubing/Mouthpiece - Nebulizer/Tubing/Mouthpiece - 04/21/2020 12:00:00 AM EST active Nebulizer/Tubing/ Mouthpiece - eCW1 ([facility]) Nebulizer/Tubing/Mouthpiece - Nebulizer/Tubing/Mouthpiece - 04/21/2020 12:00:00 AM EST active Nebulizer/Tubing/ Mouthpiece - eCW1 ([facility]) Nebulizer - Nebulizer - 04/21/2020 12:00:00 AM EST active eCW1 ([facility]) Albuterol 0.83 MG/ML Inhalant Solution Albuterol Sulfa te (2.5 MG/3ML) 0.083% Albuterol Sulfate (2.5 MG/3ML) 0.083% 04/21/2020 12:00:00 AM EST 3.0 {ml_as_needed} active Albuterol Sulfate (2.5 MG/3ML) 0.083% eCW1 ([facility]) Albuterol 0.83 MG/ML Inhalant Solution Albuterol Sulfa te (2.5 MG/3ML) 0.083% Albuterol Sulfate (2.5 MG/3ML) 0.083% 04/21/2020 12:00:00 AM EST 3.0 {ml_as_needed} active Albuterol Sulfate (2.5 MG/3ML) 0.083% eCW1 ([facility]) Albuterol 0.83 MG/ML Inhalant Solution Albuterol Sulfa te (2.5 MG/3ML) 0.083% Albuterol Sulfate (2.5 MG/3ML) 0.083% 04/21/2020 12:00:00 AM EST 3.0 {ml_as_needed} active Albuterol Sulfate (2.5 MG/3ML) 0.083% eCW1 ([facility]) Nebulizer - Nebulizer - 04/21/2020 12:00:00 AM EST active Nebulizer - eCW1 ([facility]) Albuterol 0.83 MG/ML Inhalant Solution Albuterol Sulfa te (2.5 MG/3ML) 0.083% Albuterol Sulfate (2.5 MG/3ML) 0.083% 04/21/2020 12:00:00 AM EST 3.0 {ml_as_needed} active Albuterol Sulfate (2.5 MG/3ML) 0.083% eCW1 ([facility]) Albuterol 0.83 MG/ML Inhalant Solution Albuterol Sulfa te (2.5 MG/3ML) 0.083% Albuterol Sulfate (2.5 MG/3ML) 0.083% 04/21/2020 12:00:00 AM EST 3.0 {ml_as_needed} active Albuterol Sulfate (2.5 MG/3ML) 0.083% W1 ([facility]) Nebulizer/Tubing/Mouthpiece - Nebulizer/Tubing/Mouthpiece - 04/21/2020 12:00:00 AM EST active Nebulizer/Tubing/ Mouthpiece - eCW1 ([facility]) Nebulizer - Nebulizer - 04/21/2020 12:00:00 AM EST active Nebulizer - eCW1 ([facility]) Nebulizer - Nebulizer - 04/21/2020 12:00:00 AM EST active Nebulizer - eCW1 ([facility]) Nebulizer/Tubing/Mouthpiece - Nebulizer/Tubing/Mouthpiece - 04/21/2020 12:00:00 AM EST active Nebulizer/Tubing/ Mouthpiece - eCW1 ([facility]) Albuterol 0.83 MG/ML Inhalant Solution Albuterol Sulfa te (2.5 MG/3ML) 0.083% Albuterol Sulfate (2.5 MG/3ML) 0.083% 04/21/2020 12:00:00 AM EST 3.0 {ml_as_needed} active Albuterol Sulfate (2.5 MG/3ML) 0.083% eCW1 ([facility]) Albuterol 0.83 MG/ML Inhalant Solution Albuterol Sulfa te (2.5 MG/3ML) 0.083% Albuterol Sulfate (2.5 MG/3ML) 0.083% 04/21/2020 12:00:00 AM EST 3.0 {ml_as_needed} active Albuterol Sulfate (2.5 MG/3ML) 0.083% eCW1 ([facility]) Albuterol 0.83 MG/ML Inhalant Solution Albuterol Sulfa te (2.5 MG/3ML) 0.083% Albuterol Sulfate (2.5 MG/3ML) 0.083% 04/21/2020 12:00:00 AM EST 3.0 {ml_as_needed} active Albuterol Sulfate (2.5 MG/3ML) 0.083% eCW1 ([facility]) Albuterol 0.83 MG/ML Inhalant Solution Albuterol Sulfa te (2.5 MG/3ML) 0.083% Albuterol Sulfate (2.5 MG/3ML) 0.083% 04/21/2020 12:00:00 AM EST 3.0 {ml_as_needed} active Albuterol Sulfate (2.5 MG/3ML) 0.083% eCW1 ([facility]) Nebulizer/Tubing/Mouthpiece - Nebulizer/Tubing/Mouthpiece - 04/21/2020 12:00:00 AM EST active Nebulizer/Tubing/ Mouthpiece - eCW1 ([facility]) Albuterol 0.83 MG/ML Inhalant Solution Albuterol Sulfa te (2.5 MG/3ML) 0.083% Albuterol Sulfate (2.5 MG/3ML) 0.083% 04/21/2020 12:00:00 AM EST 3.0 {ml_as_needed} active Albuterol Sulfate (2.5 MG/3ML) 0.083% eCW1 ([facility]) Nebulizer - Nebulizer - 04/21/2020 12:00:00 AM EST active Nebulizer - eCW1 ([facility]) Nebulizer - Nebulizer - 04/21/2020 12:00:00 AM EST active Nebulizer - eCW1 ([facility]) Nebulizer/Tubing/Mouthpiece - Nebulizer/Tubing/Mouthpiece - 04/21/2020 12:00:00 AM EST active Nebulizer/Tubing/ Mouthpiece - eCW1 ([facility]) Albuterol 0.83 MG/ML Inhalant Solution Albuterol Sulfa te (2.5 MG/3ML) 0.083% Albuterol Sulfate (2.5 MG/3ML) 0.083% 04/21/2020 12:00:00 AM EST 3.0 {ml_as_needed} active Albuterol Sulfate (2.5 MG/3ML) 0.083% eCW1 ([facility]) Nebulizer - Nebulizer - 04/21/2020 12:00:00 AM EST active Nebulizer - eCW1 ([facility]) Albuterol 0.83 MG/ML Inhalant Solution Albuterol Sulfa te (2.5 MG/3ML) 0.083% Albuterol Sulfate (2.5 MG/3ML) 0.083% 04/21/2020 12:00:00 AM EST 3.0 {ml_as_needed} active Albuterol Sulfate (2.5 MG/3ML) 0.083% eCW1 ([facility]) Nebulizer/Tubing/Mouthpiece - Nebulizer/Tubing/Mouthpiece - 04/21/2020 12:00:00 AM EST active Nebulizer/Tubing/ Mouthpiece - eCW1 ([facility]) Nebulizer/Tubing/Mouthpiece - Nebulizer/Tubing/Mouthpiece - 04/21/2020 12:00:00 AM EST active Nebulizer/Tubing/ Mouthpiece - eCW1 ([facility]) INHALER, ASSIST DEVICES 04/17/2020 12:00:00 AM EST spacer 1 USE WITH ALBUTEROL DIRECTED USE WITH ALBUTEROL DIRECTED SOLD: 04/17/2020 [facility] 90 mcg/actuation 04/17/2020 12:00:00 AM EST HFA aerosol inha ler 6 INHALE TWO PUFFS BY MOUTH EVERY 4 TO 6 HOURS NEEDED FOR SHORTNESS OF BREATH OR WHEEZE INHALE TWO PUFFS BY MOUTH EVERY 4 TO 6 HOURS NEEDED FOR SHORTNESS OF BREATH OR WHEEZE SOLD: 04/17/2020 [facility] Aerochamber Plus Natan-Vu 04/17/2020 12:00:00 AM EST completed MEDENT ([facility], [facility]) 60 ACTUAT Albuterol 0.09 MG/ACTUAT Metered Dose Inhaler Albu terol Sulfate HFA 04/17/2020 12:00:00 AM EST RESPIRATORY completed MEDENT ([facility], [facility]) 100 mg 04/09/2020 12:00:00 AM EST capsule 20 TAKE ONE CAPSULE BY MOUTH EVERY 12 HOURS TAKE ONE CAPSULE BY MOUTH EVERY 12 HOURS SOLD: 04/09/2020 [facility] 10 mg 04/03/2020 12:00:00 AM EST tablet 30 TAKE ONE TABLET BY MOUTH TWICE A DAY, MAXIMUM DAILY DOSE = 2 TABLETS TAKE ONE TABLET BY MOUTH TWICE A DAY, MAXIMUM DAILY DOSE = 2 TABLETS SOLD: 04/03/2020 [facility] 30 mg 03/27/2020 12:00:00 AM EST capsule,delayed release (DR/EC) 60 TAKE ONE CAPSULE BY MOUTH TWO TIMES A DAY TAKE ONE CAPSULE BY MOUTH TWO TIMES A DAY SOLD: 03/27/2020 [facility] duloxetine 30 MG Delayed Release Oral Capsule Duloxeti ne HCl 30 MG Duloxetine HCl 30 MG 03/25/2020 12:00:00 AM EST 1.0 {capsule} a ctive Duloxetine HCl 30 MG eCW1 ([facility]) duloxetine 30 MG Delayed Release Oral Capsule Duloxeti ne HCl 30 MG Duloxetine HCl 30 MG 03/25/2020 12:00:00 AM EST 1.0 {capsule} a ctive Duloxetine HCl 30 MG eCW1 ([facility]) duloxetine 30 MG Delayed Release Oral Capsule Duloxeti ne HCl 30 MG Duloxetine HCl 30 MG 03/25/2020 12:00:00 AM EST 1.0 {capsule} a ctive Duloxetine HCl 30 MG eCW1 ([facility]) Nortriptyline 50 MG Oral Capsule NORTRIPTYLINE HCL 03/18/2020 12 :00:00 AM EST capsule 30 TAKE ONE CAPSULE BY MOUTH AT BED TIME TAKE ONE CAPSULE BY MOUTH AT BEDTIME SOLD: 03/19/2020 [facility] carvedilol 12.5 MG Oral Tablet Carvedilol 12.5 MG Carvedilol 12.5 MG 03/17/2020 12:00:00 AM EST active Carvedil ol 12.5 MG eCW1 ([facility]) carvedilol 6.25 MG Oral Tablet Carvedilol 6.25 MG Carvedilol 6.25 MG 03/17/2020 12:00:00 AM EST 1.0 {tablet_with_food} active Carvedilol 6.25 MG eCW1 ([facility]) carvedilol 12.5 MG Oral Tablet Carvedilol 12.5 MG Carvedilol 12.5 MG 03/17/2020 12:00:00 AM EST active Carvedil ol 12.5 MG eCW1 ([facility]) carvedilol 12.5 MG Oral Tablet Carvedilol 12.5 MG Carvedilol 12.5 MG 03/17/2020 12:00:00 AM EST 1.0 {tablet_with_food} active Carvedilol 12.5 MG eCW1 ([facility]) carvedilol 12.5 MG Oral Tablet Carvedilol 12.5 MG Carvedilol 12.5 MG 03/17/2020 12:00:00 AM EST 1.0 {tablet_with_food} active Carvedilol 12.5 MG eCW1 ([facility]) carvedilol 12.5 MG Oral Tablet Carvedilol 12.5 MG Carvedilol 12.5 MG 03/17/2020 12:00:00 AM EST 1.0 {tablet_with_food} active Carvedilol 12.5 MG eCW1 ([facility]) carvedilol 6.25 MG Oral Tablet Carvedilol 6.25 MG Carvedilol 6.25 MG 03/17/2020 12:00:00 AM EST 1.0 {tablet_with_food} active Carvedilol 6.25 MG eCW1 ([facility]) carvedilol 12.5 MG Oral Tablet Carvedilol 12.5 MG Carvedilol 12.5 MG 03/17/2020 12:00:00 AM EST active Carvedil ol 12.5 MG eCW1 ([facility]) carvedilol 12.5 MG Oral Tablet Carvedilol 12.5 MG Carvedilol 12.5 MG 03/17/2020 12:00:00 AM EST active Carvedil ol 12.5 MG eCW1 ([facility]) carvedilol 12.5 MG Oral Tablet Carvedilol 12.5 MG Carvedilol 12.5 MG 03/17/2020 12:00:00 AM EST active Carvedil ol 12.5 MG eCW1 ([facility]) carvedilol 6.25 MG Oral Tablet Carvedilol 6.25 MG Carvedilol 6.25 MG 03/17/2020 12:00:00 AM EST 1.0 {tablet_with_food} active Carvedilol 6.25 MG eCW1 ([facility]) carvedilol 12.5 MG Oral Tablet Carvedilol 12.5 MG Carvedilol 12.5 MG 03/17/2020 12:00:00 AM EST active Carvedil ol 12.5 MG eCW1 ([facility]) carvedilol 12.5 MG Oral Tablet Carvedilol 12.5 MG Carvedilol 12.5 MG 03/17/2020 12:00:00 AM EST active Carvedil ol 12.5 MG eCW1 ([facility]) carvedilol 6.25 MG Oral Tablet Carvedilol 6.25 MG Carvedilol 6.25 MG 03/17/2020 12:00:00 AM EST 1.0 {tablet_with_food} active Carvedilol 6.25 MG eCW1 ([facility]) carvedilol 12.5 MG Oral Tablet Carvedilol 12.5 MG Carvedilol 12.5 MG 03/17/2020 12:00:00 AM EST active Carvedil ol 12.5 MG eCW1 ([facility]) carvedilol 6.25 MG Oral Tablet Carvedilol 6.25 MG Carvedilol 6.25 MG 03/17/2020 12:00:00 AM EST 1.0 {tablet_with_food} active Carvedilol 6.25 MG eCW1 ([facility]) carvedilol 6.25 MG Oral Tablet Carvedilol 6.25 MG Carvedilol 6.25 MG 03/17/2020 12:00:00 AM EST 1.0 {tablet_with_food} active Carvedilol 6.25 MG eCW1 ([facility]) carvedilol 12.5 MG Oral Tablet Carvedilol 12.5 MG Carvedilol 12.5 MG 03/17/2020 12:00:00 AM EST 1.0 {tablet_with_food} active Carvedilol 12.5 MG eCW1 ([facility]) carvedilol 12.5 MG Oral Tablet Carvedilol 12.5 MG Carvedilol 12.5 MG 03/17/2020 12:00:00 AM EST active Carvedil ol 12.5 MG eCW1 ([facility]) carvedilol 6.25 MG Oral Tablet Carvedilol 6.25 MG Carvedilol 6.25 MG 03/17/2020 12:00:00 AM EST 1.0 {tablet_with_food} active Carvedilol 6.25 MG eCW1 ([facility]) carvedilol 12.5 MG Oral Tablet Carvedilol 12.5 MG Carvedilol 12.5 MG 03/17/2020 12:00:00 AM EST active Carvedil ol 12.5 MG eCW1 ([facility]) carvedilol 12.5 MG Oral Tablet Carvedilol 12.5 MG Carvedilol 12.5 MG 03/17/2020 12:00:00 AM EST active Carvedil ol 12.5 MG eCW1 ([facility]) carvedilol 12.5 MG Oral Tablet Carvedilol 12.5 MG Carvedilol 12.5 MG 03/17/2020 12:00:00 AM EST 1.0 {tablet_with_food} active Carvedilol 12.5 MG eCW1 ([facility]) carvedilol 6.25 MG Oral Tablet Carvedilol 6.25 MG Carvedilol 6.25 MG 03/17/2020 12:00:00 AM EST 1.0 {tablet_with_food} active Carvedilol 6.25 MG eCW1 ([facility]) carvedilol 6.25 MG Oral Tablet Carvedilol 6.25 MG Carvedilol 6.25 MG 03/17/2020 12:00:00 AM EST 1.0 {tablet_with_food} active Carvedilol 6.25 MG eCW1 ([facility]) carvedilol 12.5 MG Oral Tablet Carvedilol 12.5 MG Carvedilol 12.5 MG 03/17/2020 12:00:00 AM EST active Carvedil ol 12.5 MG eCW1 ([facility]) carvedilol 12.5 MG Oral Tablet Carvedilol 12.5 MG Carvedilol 12.5 MG 03/17/2020 12:00:00 AM EST active Carvedil ol 12.5 MG eCW1 ([facility]) carvedilol 12.5 MG Oral Tablet Carvedilol 12.5 MG Carvedilol 12.5 MG 03/17/2020 12:00:00 AM EST 1.0 {tablet_with_food} active Carvedilol 12.5 MG eCW1 ([facility]) 1 mg 02/29/2020 12:00:00 AM EDT tablet 60 TAKE TWO TABLETS BY MOUTH EVERY DAY TAKE TWO TABLETS BY MOUTH EVERY DAY SOLD: 06/26/2020 [facility] 1 mg 02/29/2020 12:00:00 AM EDT tablet 60 TAKE TWO TABLETS BY MOUTH EVERY DAY TAKE TWO TABLETS BY MOUTH EVERY DAY SOLD: 03/05/2020 [facility] 1 mg 02/29/2020 12:00:00 AM EDT tablet 60 TAKE TWO TABLETS BY MOUTH EVERY DAY TAKE TWO TABLETS BY MOUTH EVERY DAY SOLD: 05/24/2020 [facility] 1 mg 02/29/2020 12:00:00 AM EDT tablet 60 TAKE TWO TABLETS BY MOUTH EVERY DAY TAKE TWO TABLETS BY MOUTH EVERY DAY SOLD: 04/17/2020 [facility] 5 mcg/hour 02/28/2020 12:00:00 AM EDT patch weekly 4 APPLY 1 PATCH TO SKIN ONCE WEEKLY * MAXIMUM DAILY DOSE = 1 PATCH EVERY 7 DAYS APPLY 1 PATCH TO SKIN ONCE WEEKLY * MAXIMUM DAILY DOSE = 1 PATCH EVERY 7 DAYS SOLD: 02/29/2020 [facility] 168 HR Buprenorphine 0.005 MG/HR Transdermal Patch [Bu Trans] Butrans 5 MCG/HR [facility] 5 MCG/HR 02/28/2020 12:00:00 AM EDT 1.0 {patch_to_skin} active Butrans 5 MCG/HR eCW1 ([facility]) 168 HR Buprenorphine 0.005 MG/HR Transdermal Patch [Bu Trans] Butrans 5 MCG/HR Butrans 5 MCG/HR 02/28/2020 12:00:00 AM EDT 1.0 {patch_to_skin} active Butrans 5 MCG/HR eCW1 ([facility]) 168 HR Buprenorphine 0.005 MG/HR Transdermal Patch [Bu Trans] Butrans 5 MCG/HR Butrans 5 MCG/HR 02/28/2020 12:00:00 AM EDT 1.0 {patch_to_skin} active Butrans 5 MCG/HR eCW1 ([facility]) 168 HR Buprenorphine 0.005 MG/HR Transdermal Patch [Bu Trans] Butrans 5 MCG/HR [facility] 5 MCG/HR 02/28/2020 12:00:00 AM EDT 1.0 {patch_to_skin} active Butrans 5 MCG/HR eCW1 ([facility]) 10 mg 02/26/2020 12:00:00 AM EDT tablet 60 TAKE ONE TABLET BY MOUTH TWICE A DAY MAXIMUM DAILY DOSE = 2 TAKE ONE TABLET BY MOUTH TWICE A DAY MAX IMUM DAILY DOSE = 2 SOLD: 02/27/2020 [facility] Rosuvastatin calcium 40 MG Oral Tablet ROSUVASTATIN CALCIUM 01/18/2020 12:00:00 AM EDT tablet 45 IHSAN 1/2 TABLET BY MOUTH ONCE DAILY IHSAN 1/2 TABLET BY MOUTH ONCE DAILY SOLD: 04/21/2020 [facility] 25 mcg 12/14/2019 12:00:00 AM EDT tablet 30 TAKE ONE TABLET BY MOUTH EVERY DAY TAKE ONE TABLET BY MOUTH EVERY DAY SOLD: 02/27/2020 [facility] 25 mcg 12/14/2019 12:00:00 AM EDT tablet 30 TAKE ONE TABLET BY MOUTH EVERY DAY TAKE ONE TABLET BY MOUTH EVERY DAY SOLD: 04/03/2020 [facility] 10 mg 12/06/2019 12:00:00 AM EDT capsule 90 TAKE THREE CAPSULES BY MOUTH EVERY DAY TAKE THREE CAPSULES BY MOUTH EVERY DAY SOLD: 02/19/2020 [facility] 75 mg 11/29/2019 12:00:00 AM EDT tablet 90 TAKE ONE TABLET BY MOUTH EVERY DAY TAKE ONE TABLET BY MOUTH EVERY DAY SOLD: 03/05/2020 [facility] montelukast 10 MG Oral Tablet MONTELUKAST SODIUM 11/20/2019 12:0 0:00 AM EDT tablet 30 TAKE ONE TABLET BY MOUTH AT BEDT BEV TAKE ONE TABLET BY MOUTH AT BEDTIME SOLD: 05/06/2020 [facility] montelukast 10 MG Oral Tablet MONTELUKAST SODIUM 11/20/2019 12:0 0:00 AM EDT tablet 30 TAKE ONE TABLET BY MOUTH AT BEDT BEV TAKE ONE TABLET BY MOUTH AT BEDTIME SOLD: 05/31/2020 [facility] 25 mg 10/31/2019 12:00:00 AM EDT tablet 15 TAKE ONE-HALF TABLET BY MOUTH EVERY MORNING TAKE ONE-HALF TABLET BY MOUTH EVERY MORNING SOLD: 07/09/2020 [facility] 25 mg 10/31/2019 12:00:00 AM EDT tablet 15 TAKE ONE-HALF TABLET BY MOUTH EVERY MORNING TAKE ONE-HALF TABLET BY MOUTH EVERY MORNING SOLD: 08/11/2020 [facility] 25 mg 10/31/2019 12:00:00 AM EDT tablet 15 TAKE ONE-HALF TABLET BY MOUTH EVERY MORNING TAKE ONE-HALF TABLET BY MOUTH EVERY MORNING SOLD: 09/19/2020 [facility] 25 mg 10/31/2019 12:00:00 AM EDT tablet 15 TAKE ONE-HALF TABLET BY MOUTH EVERY MORNING TAKE ONE-HALF TABLET BY MOUTH EVERY MORNING SOLD: 03/19/2020 [facility] 4 mg 04/17/2019 12:00:00 AM EST tablet,disintegrating 9 0 DISSOLVE ONE TABLET ON TONGUE EVERY 8 HOURS DISSOLVE ONE TABLET ON TONGUE EVERY 8 HOURS SOLD: 03/25/2020 [facility] Insurance Providers Payer name Policy type / Coverage type Policy ID Covered democrat ID Covered democrat's relationship to kelley Policy [place] Plan Information [place] [employer] [id number] Self [id number] [place] [id number] [facility] MEDICARE COMPLETE G [id number] Self [id number] MEDICARE COMPLETE [id number] SP [id number] MEDICARE COMPLETE [id number] SP [id number] [facility] Commercial [id number] Self [id number] MEDICARE COMPLETE [id number] SP [id number] MEDICARE COMPLETE [id number] SP [id number] MEDICARE COMPLETE [id number] SP [id number] [employer] [place] [id number] AN[place]are Part B [id number] [facility] [id number] [place]are Part [place] [id number] ANSI-Medicare Part B [id number] ANSI-Medicare Part B [id number] ANSI-Medicare Part B [id number] ANSI-Medicare Part B [id number] ANSI-Medicare Part B [id number] ANSI-Medicare Part B [id number] [facility]/Medicare Solu Commercial [id number] Self [id number] ANSI-Medicare Part B [id number] ANSI-Medicare Part B [id number] ANSI-Medicare Part B [id number] ANSI-Medicare Part B [id number] ANSI-Medicare Part B [id number] ANSI-Medicare Part B [id number] ANSI-Medicare Part B [id number] ANSI-Medicare Part B [id number] ANSI-Medicare Part B [id number] ANSI-Medicare Part B [id number] ANSI-Medicare Part B [id number] ANSI-Medicare Part B [id number] [facility]/Medicare Solu Commercial [id number] Self [id number] ANSI-Medicare Part B [id number] ANSI-Medicare Part B [id number] ANSI-Medicare Part B [id number] ANSI-Medicare Part B [id number] [facility]/Medicare Commercial [id number] Self ANSI-Medicare Part B [id number] ANSI-Medicare Part B [id number] ANSI-Medicare Part B [id number] ANSI-Medicare Part B [id number] ANSI-Medicare Part B [id number] ANSI-Medicare Part B [id number] ANSI-Medicare Part B [id number] ANSI-Medicare Part B [id number] [facility]/Medicare Solu Commercial [id number] Self [id number] ANSI-Medicare Part B [id number] [facility]/Medicare Solu Commercial [id number] Self [id number] ANSI-Medicare Part B [id number] ANSI-Medicare Part B [id number] ANSI-Medicare Part B [id number] ANSI-Medicare Part B [id number] ANSI-Medicare Part B [id number] ANSI-Medicare Part B [id number] ANSI-Medicare Part B [id number] ANSI-Medicare Part B [id number] ANSI-Medicare Part B [id number] [facility] [id number] Self [id number] [facility] [id number] Self MEDICARE [id number] SP [id number] A Medicare P UNAVAILABLE S UNAVAILA BLE Self Pay S [id number] S [id number] [facility] O [id number] S [id number] [facility] MEDICARE-O/P [id number] 18 [id number] MEDICARE COMPLETE [id number] SP [id number] A MEDICARE COMPLETE [id number] SP [id number] MEDICARE [id number] SP [id number] MEDICARE COMPLETE-UHC O [id number] S [id number] MEDICARE COMPLETE-UH O [id number] S [id number] ANSI-Medicare Part B [id number] ANSI-Medicare Part B [id number] [facility]-Medicare Part B [id number] Problems, Conditions, and Diagnoses Code Display Name Description Problem Type Effective Dates Data Source(s) Rt facial droop, RLE weakness Rt facial droop, RLE wea kness Diagnosis 06/22/2020 03:26:00 PM [facility] G44.221 Chronic tension-type headache Chronic tension-type hea dache Problem 12/18/2020 12:00:00 AM EDT [facility] ([facility], ) G43.009 Migraine without aura, not refractory Mi graine without aura, not refractory Problem 12/18/2020 12:00:00 AM EDT [facility] ([facility], ) G89.29 [id number] Other chronic pain Problem 11/11/2020 12:00: 00 AM EDT eCW1 ([facility]) F41.9 [id number] Anxiety Problem 08/19/2020 12:00:00 AM ED T eCW1 ([facility]) N94.89 [id number] Burning sensation of vulva Problem 12:00:00 AM EDT eCW1 ([facility]) R20.0 Skin sensation disturbance Skin sensation disturbance Problem 07/18/2020 12:00:00 AM EST [facility] ([facility], ) R53.1 Malaise and fatigue Malaise and fatigue Problem 0 07/18/2020 12:00:00 AM EST [facility] ([facility], ) Z86.73 History of cerebrovascular accident with out residual deficits History of cerebrovascular accident without residual deficits Problem 09/2020 12:00:00 AM EST [facility] ([facility], ) 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 Problem 07/18/2020 12:00:00 AM EST [facility] ([facility], ) M54.2 Neck pain Neck pain Problem 07/18/2020 12:00:00 AM ES T [facility] ([facility], ) 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 Problem 07/18/2020 12:00:00 AM EST [facility] ([facility], ) M54.5 Low back pain Low back pain Problem 07/18/2020 12:00:00 AM EST [facility] ([facility], ) M43.06 Spondylolysis Spondylolysis Problem 07/18/2020 12:00:00 AM EST [facility] ([facility], ) Z12.2 [id number] Encounter for screening for lung cancer P john 06/30/2020 12:00:00 AM EST eCW1 ([facility]) G89.4 [id number] Chronic pain syndrome Problem 05/19/2020 12: 00:00 AM EST eCW1 ([facility]) N28.1 [id number] Renal cyst Problem 03/17/2020 12:00:00 AM ES T eCW1 ([facility]) Surgeries/Procedures Procedure Description Date Indications Data Source(s) OFFICE OUTPATIENT VISIT 15 MINUTES 03/13/2021 12:00:00 AM EDT [facility] ([facility], ) PHYSICIAN TELEPHONE EVALUATION 11-20 MIN 03/05/2021 12 :00:00 AM EDT [facility] ([facility], ) Magnetic Resonance Angiogtaphy Head W/O Contrast Material(S) 12/23/2020 12:00:00 AM EDT [facility] ([facility] ) Magnetic Resonance Angiogtaphy Head W/O Contrast Material(S) 12/23/2020 12:00:00 AM EDT [facility] ([facility] ) MRI BRAIN BRAIN STEM W/O CONTRAST MATERIAL 12/23/2020 12:00:00 AM EDT MEDENT ([facility], ) MRI BRAIN BRAIN STEM W/O CONTRAST MATERIAL 12/23/2020 12:00:00 AM EDT MEDENT ([facility], ) PHYSICIAN TELEPHONE EVALUATION 11-20 MIN 12/18/2020 12 :00:00 AM EDT MEDENT ([facility]) X-Ray Spine Lumbosacral Complete Inc Bending Views Min Of 6 11/18/2020 12:00:00 AM EDT MEDENT ([facility]) OFFICE OUTPATIENT VISIT 25 MINUTES 11/18/2020 12:00:00 AM EDT MEDENT ([facility]) ARTHROCENTESIS ASPIR&/INJECTION MAJOR JT/BURSA 021 12:00:00 AM EDT MEDENT ([facility]) OFFICE OUTPATIENT VISIT 25 MINUTES 10/23/2020 12:00:00 AM EDT MEDENT ([facility]) OFFICE OUTPATIENT VISIT 15 MINUTES 10/22/2020 12:00:00 AM EDT MEDENT ([facility], ) OFFICE OUTPATIENT NEW 60 MINUTES 07/18/2020 12:00:00 A M EST MEDENT ([facility], ) PRESSURIZED/NONPRESSURIZED INHALATION TREATMENT 2019 12:00:00 AM EST MEDENT ([facility]) Results ID Date Data Source [facility] MRI ABDOMEN WITHOUT CONTRAST 08/21/2020 12:00:00 AM EDT eCW1 ([facility]) Name Value Range Interpretation Code Description Data Yue rce(s) Supporting Document(s) [facility] MRI ABDOMEN WITHOUT CONTRA ST eCW1 ([facility]) ID Date Data Source CBC with Differential 08/19/2020 12:00:00 AM EDT eCW1 ([facility] Name Value Range Interpretation Code Description Data Yue rce(s) Supporting Document(s) 8.4 4.0-10.0 WHITE BLOOD COUNT eCW1 ([facility]) 51.7 36.0-47.0 HEMATOCRIT eCW1 ([facility]) 16.7 12.0-15.5 HEMOGLOBIN eCW1 ([facility]) 5.29 4.00-5.40 RED BLOOD COUNT eCW1 ([facility]) 31.6 27.0-33.0 MEAN CORPUSCULAR HEMOGLOB IN eCW1 ([facility]) 32.3 32.0-36.5 MEAN CORPUSCULAR HGB CONC eCW1 ([facility]) 97.7 80.0-96.0 MEAN CORPUSCULAR VOLUME e CW1 ([facility]) 270 150-450 PLATELET COUNT, AUTOMATED eCW1 ([facility]) 43.8 36.0-66.0 NEUTROPHILS % eCW1 ([facility]) 13.8 11.5-14.5 RED CELL DISTRIBUTION WID TH eCW1 ([facility]) 39.9 24.0-44.0 LYMPH % eCW1 ([facility]) 4.2 0.0-3.0 EOS % eCW1 ([facility]) 11.3 2.0-8.0 MONO % eCW1 ([facility]) 3.7 1.5-8.5 NEUTROPHILS # eCW1 ([facility]) 3.4 1.5-5.0 LYMPH # eCW1 ([facility]) 0.6 0.0-1.0 BASO % eCW1 ([facility]) 0.1 0.0-0.2 BASO # eCW1 ([facility]) 0.4 0.0-0.5 EOS # eCW1 ([facility]) 1.0 0.0-0.8 MONO # eCW1 ([facility]) ID Date Data Source [id number] TUMOR MARKER,CARBOHYDRA 08/19/2020 12:00:00 AM EDT eC W1 ([facility]) Name Value Range Interpretation Code Description Data Yue rce(s) Supporting Document(s) 16.4 <35.0 [id number] TUMOR MARKER,CARBO HYDRA eCW1 ([facility]) ID Date Data Source URINE CULTURE 08/08/2020 12:00:00 AM EDT eCW1 ([facility]) Name Value Range Interpretation Code Description Data Yue rce(s) Supporting Document(s) Laboratory studies (set) URINE CULTU RE eCW1 ([facility]) ID Date Data Source [id number] 07/14/2020 11:21:00 AM EST MEDENT ([facility]) Name Value Range Interpretation Code Description Data Yue rce(s) Supporting Document(s) Bacteria identified in Urine by Culture Laboratory test result MEDENT ([facility]) ID Date Data Source [id number] 07/14/2020 12:00:00 AM EST [facility] Name Value Range Interpretation Code Description Data Yue rce(s) Supporting Document(s) SARS-CoV2 Rapid Antigen Negative [facility] This lab was reported by [facility]. ID Date Data Source [id number] 06/22/2020 01:49:00 PM EST [facility] Name Value Range Interpretation Code Description Data Yue rce(s) Supporting Document(s) SARS coronavirus 2 RNA [Presence] in Res piratory specimen by BARBARA with probe detection NEGATIVE [facility] This lab was ordered by [facility] a nd reported by [facility]. ID Date Data Source [id number] 06/04/2020 09:27:00 AM EST MEDENT ([facility]) Name Value Range Interpretation Code Description Data Yue rce(s) Supporting Document(s) WBC, Urine Auto 1 /HPF 0-3 MEDENT ([facility], [facility]) RBC, Urine Auto 1 /HPF 0-3 MEDENT ([facility]) Bacteria, Urine Auto Laboratory test result MEDENT ([facility]) Squamous Epithelial Cell Ur AU 0 /HPF 0-6 MEDENT ([facility]) Mucus, Urine Laboratory test result MEDE NT ([facility]) Hyaline Cast, Urine Auto 0 /LPF 0-1 MEDEN T ([facility]) ID Date Data Source [id number] 06/04/2020 09:27:00 AM EST MEDENT ([facility]) Name Value Range Interpretation Code Description Data Yue rce(s) Supporting Document(s) Bacteria identified in Urine by Culture Laboratory test result MEDENT ([facility]) FULL REPORT IN LAB NOTES (eCW and Medent ). NO GROWTH CLINICAL SIGNIFICANCE 2 OR MORE ORGANISMS ID Date Data Source [id number] 06/04/2020 12:00:00 AM EST [facility] Name Value Range Interpretation Code Description Data Yue rce(s) Supporting Document(s) SARS coronavirus 2 Ag Negative [facility] This lab was ordered by [facility] and reported by [facility]. ID Date Data Source UA URINALYSIS 05/19/2020 12:00:00 AM EST eCW1 ([facility]) Name Value Range Interpretation Code Description Data Yue rce(s) Supporting Document(s) Laboratory studies (set) UA URINALYS IS eCW1 ([facility]) ID Date Data Source [id number] 05/12/2020 08:16:00 PM EST [facility] Name Value Range Interpretation Code Description Data Yue rce(s) Supporting Document(s) SARS coronavirus 2 RNA [facility] This lab was ordered by [facility] and reported by [facility]. ID Date Data Source [id number] 05/01/2020 02:32:00 PM EST [facility] Name Value Range Interpretation Code Description Data Yue rce(s) Supporting Document(s) SARS coronavirus 2 RNA [Presence] in Res piratory specimen by BARBARA with probe detection [facility] This lab was ordered by [facility] a nd reported by [facility]. ID Date Data Source [id number] 04/17/2020 11:36:00 AM EST MEDENT ([facility]) Name Value Range Interpretation Code Description Data Yue rce(s) Supporting Document(s) Blood Urea Nitrogen 11 mg/dL 7-18 MEDENT ([facility]) Creatinine For GFR 0.85 mg/dL 0.55-1.30 MEDENT ([facility]) Glucose, Fasting 85 mg/dL 70-100 MEDENT ([facility]) Glomerular Filtration Rate Laboratory test result MEDENT ([facility]) <content>Units are mL/min/1.73 m2</content>
<content></content>
<content>Chronic Kidney Disease Staging per NKF:</content>
<content></content>
<content>Stage I & II GFR >=60 Normal to Mildly Decreased</content>
<content>Stage III GFR 30- 59 Moderately Decreased</content>
<content>Stage IV GFR 15-29 Severely Decreased</content>
<content>Stage V GFR <15 Very Little GFR Left</content>
<content>ESRD GFR <15 on COMPUTER SCIENCES PROFESSOR</content>
<content></content> Sodium Level 141 meq/L 136-145 MEDENT ([facility], [facility]) Chloride Level 108 meq/L 98-107 MEDENT ([facility], [facility]) Potassium Serum 3.9 meq/L 3.5-5.1 MEDENT ([facility], [facility]) Carbon Dioxide Level 27 meq/L 21-32 [facility]) Calcium Level 9.7 mg/dL 8.5-10.1 MEDENT ([facility], [facility]) Ast/Sgot 9 U/L 7-37 MEDENT ([facility], [facility]) Anion Gap 6 meq/L 8-16 MEDENT ([facility]) Alt/SGPT 17 U/L 12-78 MED[facility] ([facility], [facility]) Alkaline Phosphatase 88 U/L 45-117 [facility] ( [facility] Bilirubin,Total 0.4 mg/dL 0.2-1.0 MEDENT ([facility], [facility]) Albumin 3.7 GM/DL 3.2-5.2 MEDENT ([facility], [facility]) Total Protein 6.7 GM/DL 6.4-8.2 MEDENT ([facility], [facility]) Albumin/Globulin Ratio 1.2 1.2-2.2 MEDENT ([facility], [facility]) ID Date Data Source [id number] 04/17/2020 11:36:00 AM EST MEDENT ([facility], [facility]) Name Value Range Interpretation Code Description Data Yue rce(s) Supporting Document(s) White Blood Count 7.6 10 4.0-10.0 [facility]) Hemoglobin 14.9 g/dL 12.0-15.5 MED[facility] ([facility]) Red Blood Count 4.77 10 4.00-5.40 MEDENT ([facility], [facility]) Hematocrit 46.3 % 36.0-47.0 MED[facility] ([facility]) Mean Corpuscular Hemoglobin 31.2 pg 27.0-33.0 MED[facility] ([facility], [facility]) Mean Corpuscular Volume 97.1 fl 80.0-96.0 M EDENT ([facility], [facility]) Mean Corpuscular HGB Conc 32.2 g/dL 32.0-36.5 MEDENT ([facility], [facility]) Platelet Count, Automated 255 10 150-450 MEDENT ([facility], [facility]) Red Cell Distribution Width 14.8 % 11.5-14.5 MED[facility] ([facility], [facility]) Lymph % 40.2 % 24.0-44.0 MED[facility] ([facility]) [place] % 11.6 % 0.0-5.0 MEDENT ([facility]) Neutrophils % 42.6 % 36.0-66.0 MEDENT ([facility], [facility]) Baso % 0.7 % 0.0-1.0 MEDENT ([facility]) Eos % 4.6 % 0.0-3.0 MEDENT ([facility]) Neutrophils # 3.3 10 1.5-8.5 MEDENT ([facility], [facility]) Nucleated Red Blood Cell % 0.0 % 0-0 MED ENT ([facility], [facility]) Immature Granulocyte % 0.3 % 0-3.0 MEDENT ([facility], [facility]) Eos # 0.4 10 0.0-0.5 MED[facility] ([facility] Lymph # 3.1 10 1.5-5.0 MED[facility] ([facility] [place] # 0.9 10 0.0-0.8 MED[facility] ([facility] Baso # 0.1 10 0.0-0.2 MEDENT ([facility], [facility]) ID Date Data Source DRUG EVAL COMPREHENSIVE 03/22/2020 04:46:20 AM EST eCW1 ([facility]) Name Value Range Interpretation Code Description Data Yue rce(s) Supporting Document(s) DRUG EVAL COMPREHENSIVE eCW1 ( [facility]) ID Date Data Source ERYTHROCYTE SEDIMENTATION RATE 03/18/2020 05:27:57 AM EST eC W1 ([facility]) Name Value Range Interpretation Code Description Data Yue rce(s) Supporting Document(s) 1 ERYTHROCYTE SEDIMENTATION RATE eCW1 ([facility]) ID Date Data Source NT-PRO BNP 03/18/2020 04:57:51 AM EST eCW1 ([facility]) Name Value Range Interpretation Code Description Data Yue rce(s) Supporting Document(s) 112 NT-PRO BNP eCW1 ([facility]) ID Date Data Source C REACTIVE PROTEIN QUANTITATIV (At [facility]) 03/18/2020 04:57 :44 AM EST eCW1 ([facility]) Name Value Range Interpretation Code Description Data Yue rce(s) Supporting Document(s) < 0.30 C REACTIVE PROTEIN QUANTI TATIV eCW1 ([facility]) ID Date Data Source [id number] 03/03/2020 02:03:00 PM EDT MEDENT ([facility]) Name Value Range Interpretation Code Description Data Yue rce(s) Supporting Document(s) Laboratory test finding (navigational concept) Laboratory test result MEDENT ([facility]) Procedure Social History Code Duration Value Status Description Data Source(s ) Smoking 03/13/2021 12:00:00 AM EDT Patient is a former smoker completed Patient is a former smoker MEDENT ([facility], ) Smoking 03/01/2021 12:00:00 AM EDT Former Smoker completed Former Smoker eCW1 ([facility]) Smoking 03/01/2021 12:00:00 AM EDT Former Smoker completed Former Smoker eCW1 ([facility]) Smoking 03/01/2021 12:00:00 AM EDT Former Smoker completed Former Smoker eCW1 ([facility]) Smoking 03/01/2021 12:00:00 AM EDT Former Smoker completed Former Smoker eCW1 ([facility]) Smoking 03/01/2021 12:00:00 AM EDT Former Smoker completed Former Smoker eCW1 ([facility]) Smoking 03/01/2021 12:00:00 AM EDT Former Smoker completed Former Smoker eCW1 ([facility]) Smoking 03/01/2021 12:00:00 AM EDT Former Smoker completed Former Smoker eCW1 ([facility]) Smoking 03/01/2021 12:00:00 AM EDT Former Smoker completed Former Smoker eCW1 ([facility]) Smoking 03/01/2021 12:00:00 AM EDT Former Smoker completed Former Smoker eCW1 ([facility]) Smoking 03/01/2021 12:00:00 AM EDT Former Smoker completed Former Smoker eCW1 ([facility]) Smoking 03/01/2021 12:00:00 AM EDT Former Smoker completed Former Smoker eCW1 ([facility]) Smoking 03/01/2021 12:00:00 AM EDT Former Smoker completed Former Smoker eCW1 ([facility]) Smoking 03/01/2021 12:00:00 AM EDT Former Smoker completed Former Smoker eCW1 ([facility]) Smoking 02/19/2021 12:00:00 AM EDT Former Smoker completed Former Smoker eCW1 ([facility]) Smoking 02/19/2021 12:00:00 AM EDT Former Smoker completed Former Smoker eCW1 ([facility]) Smoking 02/19/2021 12:00:00 AM EDT Former Smoker completed Former Smoker eCW1 ([facility]) Smoking 02/19/2021 12:00:00 AM EDT Former Smoker completed Former Smoker eCW1 ([facility]) Smoking 02/06/2021 12:00:00 AM EDT Former Smoker completed Former Smoker eCW1 ([facility]) Smoking 02/06/2021 12:00:00 AM EDT Former Smoker completed Former Smoker eCW1 ([facility]) Smoking 11/11/2020 12:00:00 AM EDT Former Smoker completed Former Smoker eCW1 ([facility]) Smoking 11/11/2020 12:00:00 AM EDT Former Smoker completed Former Smoker eCW1 ([facility]) Smoking 11/11/2020 12:00:00 AM EDT Former Smoker completed Former Smoker eCW1 ([facility]) Smoking 11/11/2020 12:00:00 AM EDT Former Smoker completed Former Smoker eCW1 ([facility]) Smoking 11/11/2020 12:00:00 AM EDT Former Smoker completed Former Smoker eCW1 ([facility]) Smoking 11/11/2020 12:00:00 AM EDT Former Smoker completed Former Smoker eCW1 ([facility]) Smoking 11/11/2020 12:00:00 AM EDT Former Smoker completed Former Smoker eCW1 ([facility]) Smoking 11/11/2020 12:00:00 AM EDT Former Smoker completed Former Smoker eCW1 ([facility]) Smoking 11/11/2020 12:00:00 AM EDT Former Smoker completed Former Smoker eCW1 ([facility]) Smoking 11/11/2020 12:00:00 AM EDT Former Smoker completed Former Smoker eCW1 ([facility]) Smoking 10/28/2020 12:00:00 AM EDT Former Smoker completed Former Smoker eCW1 ([facility]) Smoking 10/28/2020 12:00:00 AM EDT Former Smoker completed Former Smoker eCW1 ([facility]) Smoking 10/28/2020 12:00:00 AM EDT Former Smoker completed Former Smoker eCW1 ([facility]) Smoking 10/28/2020 12:00:00 AM EDT Former Smoker completed Former Smoker eCW1 ([facility]) Smoking 10/28/2020 12:00:00 AM EDT Former Smoker completed Former Smoker eCW1 ([facility]) Smoking 08/19/2020 12:00:00 AM EDT Former Smoker completed Former Smoker eCW1 ([facility]) Smoking 08/19/2020 12:00:00 AM EDT Former Smoker completed Former Smoker eCW1 ([facility]) Smoking 08/19/2020 12:00:00 AM EDT Former Smoker completed Former Smoker eCW1 ([facility]) Smoking 08/19/2020 12:00:00 AM EDT Former Smoker completed Former Smoker eCW1 ([facility]) Smoking 08/19/2020 12:00:00 AM EDT Former Smoker completed Former Smoker eCW1 ([facility]) Smoking 08/19/2020 12:00:00 AM EDT Former Smoker completed Former Smoker eCW1 ([facility]) Smoking 08/19/2020 12:00:00 AM EDT Former Smoker completed Former Smoker eCW1 ([facility]) Smoking 08/19/2020 12:00:00 AM EDT Former Smoker completed Former Smoker eCW1 ([facility]) Smoking 08/14/2020 12:00:00 AM EDT Former Smoker completed Former Smoker eCW1 ([facility]) Smoking 08/08/2020 12:00:00 AM EDT Former Smoker completed Former Smoker eCW1 ([facility]) Smoking 08/08/2020 12:00:00 AM EDT Former Smoker completed Former Smoker eCW1 ([facility]) Smoking 08/08/2020 12:00:00 AM EDT Former Smoker completed Former Smoker eCW1 ([facility]) Smoking 08/08/2020 12:00:00 AM EDT Former Smoker completed Former Smoker eCW1 ([facility]) Smoking 06/30/2020 12:00:00 AM EST Former Smoker completed Former Smoker eCW1 ([facility]) Smoking 06/30/2020 12:00:00 AM EST Former Smoker completed Former Smoker eCW1 ([facility]) Smoking 06/30/2020 12:00:00 AM EST Former Smoker completed Former Smoker eCW1 ([facility]) Smoking 06/30/2020 12:00:00 AM EST Former Smoker completed Former Smoker eCW1 ([facility]) Smoking 06/30/2020 12:00:00 AM EST Former Smoker completed Former Smoker eCW1 ([facility]) Smoking 06/30/2020 12:00:00 AM EST Former Smoker completed Former Smoker eCW1 ([facility]) Smoking 06/30/2020 12:00:00 AM EST Former Smoker completed Former Smoker eCW1 ([facility]) Smoking 06/30/2020 12:00:00 AM EST Former Smoker completed Former Smoker eCW1 ([facility]) Smoking 06/30/2020 12:00:00 AM EST Former Smoker completed Former Smoker eCW1 ([facility]) Smoking 05/19/2020 12:00:00 AM EST Former Smoker completed Former Smoker eCW1 ([facility]) Smoking 05/19/2020 12:00:00 AM EST Former Smoker completed Former Smoker eCW1 ([facility]) Smoking 05/19/2020 12:00:00 AM EST Former Smoker completed Former Smoker eCW1 ([facility]) Smoking 05/19/2020 12:00:00 AM EST Former Smoker completed Former Smoker eCW1 ([facility]) Smoking 05/19/2020 12:00:00 AM EST Former Smoker completed Former Smoker eCW1 ([facility]) Smoking 05/19/2020 12:00:00 AM EST Former Smoker completed Former Smoker eCW1 ([facility]) Smoking 05/19/2020 12:00:00 AM EST Former Smoker completed Former Smoker eCW1 ([facility]) Smoking 05/19/2020 12:00:00 AM EST Former Smoker completed Former Smoker eCW1 ([facility]) Smoking 05/19/2020 12:00:00 AM EST Former Smoker completed Former Smoker eCW1 ([facility]) Smoking 05/19/2020 12:00:00 AM EST Former Smoker completed Former Smoker eCW1 ([facility]) Smoking 05/19/2020 12:00:00 AM EST Former Smoker completed Former Smoker eCW1 ([facility]) Smoking 05/19/2020 12:00:00 AM EST Former Smoker completed Former Smoker eCW1 ([facility]) Smoking 05/19/2020 12:00:00 AM EST Former Smoker completed Former Smoker eCW1 ([facility]) Smoking 04/21/2020 12:00:00 AM EST Former Smoker completed Former Smoker eCW1 ([facility]) Smoking 04/21/2020 12:00:00 AM EST Former Smoker completed Former Smoker eCW1 ([facility]) Smoking 04/21/2020 12:00:00 AM EST Former Smoker completed Former Smoker eCW1 ([facility]) Smoking 04/21/2020 12:00:00 AM EST Former Smoker completed Former Smoker eCW1 ([facility]) Smoking 04/21/2020 12:00:00 AM EST Former Smoker completed Former Smoker eCW1 ([facility]) Smoking 04/21/2020 12:00:00 AM EST Former Smoker completed Former Smoker eCW1 ([facility]) Smoking 03/17/2020 12:00:00 AM EST Former Smoker completed Former Smoker eCW1 ([facility]) Smoking 03/17/2020 12:00:00 AM EST Former Smoker completed Former Smoker eCW1 ([facility]) Smoking 03/17/2020 12:00:00 AM EST Former Smoker completed Former Smoker eCW1 ([facility]) Smoking 03/17/2020 12:00:00 AM EST Former Smoker completed Former Smoker eCW1 ([facility]) Smoking 03/17/2020 12:00:00 AM EST Former Smoker completed Former Smoker eCW1 ([facility]) Smoking 03/17/2020 12:00:00 AM EST Former Smoker completed Former Smoker eCW1 ([facility]) Smoking 03/17/2020 12:00:00 AM EST Former Smoker completed Former Smoker eCW1 ([facility]) Smoking 03/17/2020 12:00:00 AM EST Former Smoker completed Former Smoker eCW1 ([facility]) Smoking 03/17/2020 12:00:00 AM EST Former Smoker completed Former Smoker eCW1 ([facility]) Vital Signs ID Date Data Source UNK Name Value Range Interpretation Code Description Data Source(s) Systolic blood pressure 100 mm[Hg] 100 mm[Hg] M EDENT ([facility]) Diastolic blood pressure 62 mm[Hg] 62 mm[Hg] MEDENT ([facility]) [place] body weight 140 [lb_av] 140 [lb_av] MEDEN T ([facility]) Heart rate 80 /min 80 /min [facility] ([facility]) Body weight 101.153 kg 101.153 kg [facility] ([facility]) Oxygen saturation in Arterial blood by Pulse oximetry 95 % 95 % [facility] ([facility]) Body surface area Derived from formula 2.14 m2 2.14 m2 [facility]) Respiratory rate 18 /min 18 /min [facility] ( [facility]) Body height 68 [in_i] 68 [in_i] [facility] ([facility]) 5'8" Body weight 223.00 [lb_av] 223.00 [lb_av] MEDEN T ([facility]) Body mass index (BMI) [Ratio] 33.9 kg/m2 33.9 k g/m2 [facility] ([facility]) Body mass index (BMI) [Ratio] 34.06 kg/m2 34.06 kg/m2 eCW1 ([facility]) Heart rate 77 /min 77 /min eCW1 ([facility]) Respiratory rate 18 /min 18 /min eCW1 ([facility]) Body temperature 99.0 [degF] 99.0 [degF] eCW1 ( [facility]) Systolic blood pressure 128 mm[Hg] 128 mm[Hg] e CW1 ([facility]) Diastolic blood pressure 72 mm[Hg] 72 mm[Hg] eCW1 ([facility]) Body weight 222.4 [lb_av] 222.4 [lb_av] eCW1 ([facility]) Body weight 100.88 kg 100.88 kg eCW1 ([facility]) Body height 67.75 [in_i] 67.75 [in_i] eCW1 ([facility]) Systolic blood pressure 116 mm[Hg] 116 mm[Hg] e CW1 ([facility]) Body weight 219 [lb_av] 219 [lb_av] eCW1 ([facility] [facility]) Body height 67.75 [in_i] 67.75 [in_i] eCW1 ([facility]) Body mass index (BMI) [Ratio] 33.54 kg/m2 33.54 kg/m2 eCW1 ([facility]) Heart rate 83 /min 83 /min eCW1 ([facility]) Respiratory rate 18 /min 18 /min eCW1 ([facility]) Body temperature 97.7 [degF] 97.7 [degF] eCW1 ( [facility]) Diastolic blood pressure 76 mm[Hg] 76 mm[Hg] eCW1 ([facility]) Body temperature 98.4 [degF] 98.4 [degF] eCW1 ( [facility]) Systolic blood pressure 124 mm[Hg] 124 mm[Hg] e CW1 ([facility]) Diastolic blood pressure 80 mm[Hg] 80 mm[Hg] eCW1 ([facility]) Body weight 218 [lb_av] 218 [lb_av] eCW1 ([facility] Body height 67.75 [in_i] 67.75 [in_i] eCW1 ([facility]) Body mass index (BMI) [Ratio] 33.39 kg/m2 33.39 kg/m2 eCW1 ([facility]) Heart rate 73 /min 73 /min eCW1 ([facility]) Respiratory rate 20 /min 20 /min eCW1 ([facility]) Body weight 218.4 [lb_av] 218.4 [lb_av] eCW1 ([facility]) Body height 67.75 [in_i] 67.75 [in_i] eCW1 ([facility]) Body mass index (BMI) [Ratio] 33.45 kg/m2 33.45 kg/m2 eCW1 ([facility]) Heart rate 82 /min 82 /min eCW1 ([facility]) Respiratory rate 18 /min 18 /min eCW1 ([facility]) Body temperature 97.6 [degF] 97.6 [degF] eCW1 ( [facility]) Systolic blood pressure 118 mm[Hg] 118 mm[Hg] e CW1 ([facility]) Diastolic blood pressure 80 mm[Hg] 80 mm[Hg] eCW1 ([facility]) Oxygen saturation in Arterial blood by Pulse oximetry 95 % 95 % [facility]) Body weight 221.25 [lb_av] 221.25 [lb_av] MEDEN T ([facility]) Body weight 100.359 kg 100.359 kg [facility] ([facility]) Systolic blood pressure 118 mm[Hg] 118 mm[Hg] M EDENT ([facility]) Diastolic blood pressure 62 mm[Hg] 62 mm[Hg] MEDENT ([facility]) Heart rate 61 /min 61 /min [facility] ([facility]) Oxygen saturation in Arterial blood by Pulse oximetry 95 % 95 % [facility] ([facility]) Body weight 221.25 [lb_av] 221.25 [lb_av] MEDEN T ([facility]) Body weight 100.359 kg 100.359 kg [facility] ([facility]) Body weight 213 [lb_av] 213 [lb_av] eCW1 ([facility]) Body height 67.75 [in_i] 67.75 [in_i] eCW1 ([facility]) Body mass index (BMI) [Ratio] 32.62 kg/m2 32.62 kg/m2 eCW1 ([facility]) Heart rate 83 /min 83 /min eCW1 ([facility]) Respiratory rate 18 /min 18 /min eCW1 ([facility]) Body temperature 97.3 [degF] 97.3 [degF] eCW1 ( [facility]) Systolic blood pressure 124 mm[Hg] 124 mm[Hg] e CW1 ([facility]) Diastolic blood pressure 78 mm[Hg] 78 mm[Hg] eCW1 ([facility]) Body weight 212 [lb_av] 212 [lb_av] eCW1 ([facility]) Body height 67.75 [in_i] 67.75 [in_i] eCW1 ([facility]) Body mass index (BMI) [Ratio] 32.47 kg/m2 32.47 kg/m2 eCW1 ([facility]) Heart rate 82 /min 82 /min eCW1 ([facility]) Respiratory rate 18 /min 18 /min eCW1 ([facility]) Body temperature 987.1 [degF] 987.1 [degF] eCW1 ([facility]) Systolic blood pressure 120 mm[Hg] 120 mm[Hg] e CW1 ([facility]) Diastolic blood pressure 70 mm[Hg] 70 mm[Hg] eCW1 ([facility]) Body weight 204 [lb_av] 204 [lb_av] eCW1 ([facility]) Body weight 92.53 kg 92.53 kg eCW1 ([facility]) Body height 67.75 [in_i] 67.75 [in_i] eCW1 ([facility]) Body mass index (BMI) [Ratio] 31.24 kg/m2 31.24 kg/m2 W1 ([facility]) Systolic blood pressure 100 mm[Hg] 100 mm[Hg] e CW1 ([facility]) Diastolic blood pressure 60 mm[Hg] 60 mm[Hg] eCW1 ([facility]) Diastolic blood pressure 80 mm[Hg] 80 mm[Hg] MEDENT ([facility]) Oxygen saturation in Arterial blood by Pulse oximetry 99 % 99 % MEDENT ([facility], [facility]) Respiratory rate 16 /min 16 /min MEDENT ( [facility], [facility]) Heart rate 78 /min 78 /min MEDENT ([facility], [facility]) Body temperature 98.7 [degF] 98.7 [degF] MEDENT ([facility], [facility]) Body height 68 [in_i] 68 [in_i] MEDENT ([facility]) 5'8" Body weight 220.00 [lb_av] 220.00 [lb_av] MEDEN T ([facility]) Body mass index (BMI) [Ratio] 33.4 kg/m2 33.4 k g/m2 MEDENT ([facility]) Systolic blood pressure 124 mm[Hg] 124 mm[Hg] M EDENT ([facility]) Systolic blood pressure 104 mm[Hg] 104 mm[Hg] [facility] Body weight 96.163 kg 96.163 kg [facility] ([facility]) Diastolic blood pressure 74 mm[Hg] 74 mm[Hg] [facility] ([facility]) Heart rate 89 /min 89 /min [facility] ([facility]) Oxygen saturation in Arterial blood by Pulse oximetry 95 % 95 % [facility] ([facility]) Body height 68 [in_i] 68 [in_i] [facility] ([facility]) 5'8" Body weight 212.00 [lb_av] 212.00 [lb_av] MEDEN T ([facility]) Body mass index (BMI) [Ratio] 32.2 kg/m2 32.2 k g/m2 [facility] ([facility]) [place] body weight 140 [lb_av] 140 [lb_av] MEDEN T ([facility]) Body surface area Derived from formula 2.09 m2 2.09 m2 [facility] ([facility]) Body weight 211.2 [lb_av] 211.2 [lb_av] eCW1 ([facility]) Body height 67.75 [in_i] 67.75 [in_i] eCW1 ([facility]) Body mass index (BMI) [Ratio] 32.35 kg/m2 32.35 kg/m2 eCW1 ([facility]) Heart rate 79 /min 79 /min eCW1 ([facility]) Respiratory rate 20 /min 20 /min eCW1 ([facility]) Body temperature 98.8 [degF] 98.8 [degF] eCW1 ( [facility]) Systolic blood pressure 120 mm[Hg] 120 mm[Hg] e CW1 ([facility]) Diastolic blood pressure 82 mm[Hg] 82 mm[Hg] eCW1 ([facility]) Body weight 211.2 [lb_av] 211.2 [lb_av] eCW1 ([facility]) Body height 67.75 [in_i] 67.75 [in_i] eCW1 ([facility]) Body mass index (BMI) [Ratio] 32.35 kg/m2 32.35 kg/m2 W1 ([facility]) Heart rate 79 /min 79 /min eCW1 ([facility]) Respiratory rate 20 /min 20 /min eCW1 ([facility]) Body temperature 98.8 [degF] 98.8 [degF] eCW1 ( [facility]) Systolic blood pressure 120 mm[Hg] 120 mm[Hg] e CW1 ([facility]) Diastolic blood pressure 82 mm[Hg] 82 mm[Hg] eCW1 ([facility]) Respiratory rate 20 /min 20 /min MEDENT ( [facility], [facility]) Body temperature 98.0 [degF] 98.0 [degF] MEDENT ([facility], [facility]) Oxygen saturation in Arterial blood by Pulse oximetry 97 % 97 % MEDENT ([facility], [facility]) Body weight 220.00 [lb_av] 220.00 [lb_av] MEDEN T ([facility], [facility]) Body height 68 [in_i] 68 [in_i] MEDENT ([facility] 5'8" Systolic blood pressure 132 mm[Hg] 132 mm[Hg] M EDENT ([facility], [facility]) Diastolic blood pressure 80 mm[Hg] 80 mm[Hg] MEDENT ([facility], [facility]) Body mass index (BMI) [Ratio] 33.4 kg/m2 33.4 k g/m2 MEDENT ([facility], [facility]) Heart rate 66 /min 66 /min MEDENT ([facility], [facility]) Systolic blood pressure 135 mm[Hg] 135 mm[Hg] M EDENT ([facility], [facility]) Diastolic blood pressure 76 mm[Hg] 76 mm[Hg] MEDENT ([facility], [facility]) Heart rate 96 /min 96 /min MEDENT ([facility], [facility]) Respiratory rate 16 /min 16 /min MEDENT ( [facility], [facility]) Oxygen saturation in Arterial blood by Pulse oximetry 98 % 98 % MEDENT ([facility], [facility]) Body temperature 98.3 [degF] 98.3 [degF] MEDENT ([facility], [facility]) Body weight 220.00 [lb_av] 220.00 [lb_av] MEDEN T ([facility], [facility]) Body height 68 [in_i] 68 [in_i] MEDENT ([facility], [facility]) 5'8" Body mass index (BMI) [Ratio] 33.4 kg/m2 33.4 k g/m2 MEDENT ([facility], [facility]) Body weight 209 [lb_av] 209 [lb_av] eCW1 ([facility]) Body height 67.75 [in_i] 67.75 [in_i] eCW1 ([facility]) Body mass index (BMI) [Ratio] 32.01 kg/m2 32.01 kg/m2 eCW1 ([facility]) Heart rate 96 /min 96 /min eCW1 ([facility]) Respiratory rate 18 /min 18 /min eCW1 ([facility]) Body temperature 99.1 [degF] 99.1 [degF] eCW1 ( [facility]) Systolic blood pressure 130 mm[Hg] 130 mm[Hg] e CW1 ([facility]) Diastolic blood pressure 98 mm[Hg] 98 mm[Hg] eCW1 ([facility]) Body weight 209.0 [lb_av] 209.0 [lb_av] eCW1 ([facility]) Body temperature 98.6 [degF] 98.6 [degF] eCW1 ( [facility]) Systolic blood pressure 150 mm[Hg] 150 mm[Hg] e CW1 ([facility]) Diastolic blood pressure 92 mm[Hg] 92 mm[Hg] eCW1 ([facility]) Body height 67.75 [in_i] 67.75 [in_i] eCW1 ([facility]) Body mass index (BMI) [Ratio] 32.01 kg/m2 32.01 kg/m2 eCW1 ([facility]) Heart rate 62 /min 62 /min eCW1 ([facility]) Respiratory rate 18 /min 18 /min eCW1 ([facility]) Systolic blood pressure 130 mm[Hg] 130 mm[Hg] M EDENT ([facility], [facility]) Diastolic blood pressure 80 mm[Hg] 80 mm[Hg] MEDENT ([facility], [facility]) Heart rate 61 /min 61 /min MEDENT ([facility], [facility]) Respiratory rate 16 /min 16 /min MEDENT ( [facility], [facility]) Oxygen saturation in Arterial blood by Pulse oximetry 96 % 96 % MEDENT ([facility], [facility]) Body temperature 98.2 [degF] 98.2 [degF] MEDENT ([facility], [facility]) Body weight 220.00 [lb_av] 220.00 [lb_av] MEDEN T ([facility], [facility]) Body height 68 [in_i] 68 [in_i] MEDENT ([facility], [facility]) 5'8" Body mass index (BMI) [Ratio] 33.4 kg/m2 33.4 k g/m2 MEDENT ([facility], [facility]) Body weight 211.0 [lb_av] 211.0 [lb_av] eCW1 ([facility]) Body height 67.75 [in_i] 67.75 [in_i] eCW1 ([facility]) Body mass index (BMI) [Ratio] 32.32 kg/m2 32.32 kg/m2 eCW1 ([facility]) Heart rate 80 /min 80 /min eCW1 ([facility]) Respiratory rate 20 /min 20 /min eCW1 ([facility]) Body temperature 97.2 [degF] 97.2 [degF] eCW1 ( [facility]) Systolic blood pressure 132 mm[Hg] 132 mm[Hg] e CW1 ([facility]) Diastolic blood pressure 80 mm[Hg] 80 mm[Hg] eCW1 ([facility]) Body weight 211.0 [lb_av] 211.0 [lb_av] eCW1 ([facility]) Body height 67.75 [in_i] 67.75 [in_i] eCW1 ([facility]) Body mass index (BMI) [Ratio] 32.32 kg/m2 32.32 kg/m2 eCW1 ([facility]) Heart rate 80 /min 80 /min eCW1 ([facility]) Respiratory rate 20 /min 20 /min eCW1 ([facility]) Body temperature 97.2 [degF] 97.2 [degF] eCW1 ( [facility]) Systolic blood pressure 132 mm[Hg] 132 mm[Hg] e CW1 ([facility]) Diastolic blood pressure 80 mm[Hg] 80 mm[Hg] eCW1 ([facility]) Body temperature 96.7 [degF] 96.7 [degF] MEDENT ([facility]) ID Date Data Source [id number] 06/23/2020 07:31:41 AM EST [facility] Name Value Range Interpretation Code Description Data Source(s) TRANSFER FROM [facility] Patient Treatment Plan of Care Planned Activity Planned Date Details Description Data Source (s) tramadol hydrochloride 50 MG Oral Tablet 04/01/2021 12:00:00 AM EST eCW1 ([facility]) tramadol hydrochloride 50 MG Oral Tablet 04/01/2021 12:00:00 AM EST eCW1 ([facility]) tramadol hydrochloride 50 MG Oral Tablet 04/01/2021 12:00:00 AM EST eCW1 ([facility]) tramadol hydrochloride 50 MG Oral Tablet 04/01/2021 12:00:00 AM EST eCW1 ([facility]) 168 HR Buprenorphine 0.01 MG/HR Transdermal Patch [BuT rans] 03/30/2021 12:00:00 AM EST eCW1 ([facility]) 168 HR Buprenorphine 0.01 MG/HR Transdermal Patch [BuT rans] 03/30/2021 12:00:00 AM EST eCW1 ([facility]) 168 HR Buprenorphine 0.01 MG/HR Transdermal Patch [BuT rans] 03/30/2021 12:00:00 AM EST eCW1 ([facility]) 168 HR Buprenorphine 0.01 MG/HR Transdermal Patch [BuT rans] 03/30/2021 12:00:00 AM EST eCW1 ([facility]) 168 HR Buprenorphine 0.01 MG/HR Transdermal Patch [BuT rans] 03/30/2021 12:00:00 AM EST eCW1 ([facility]) 168 HR Buprenorphine 0.01 MG/HR Transdermal Patch [BuT rans] 03/30/2021 12:00:00 AM EST eCW1 ([facility]) tramadol hydrochloride 50 MG Oral Tablet 03/27/2021 12:00:00 AM EST eCW1 ([facility]) tramadol hydrochloride 50 MG Oral Tablet 03/27/2021 12:00:00 AM EST eCW1 ([facility]) 24 HR tramadol hydrochloride 100 MG Extended Release O ral Tablet 03/25/2021 12:00:00 AM EST eCW1 ([facility]) 24 HR tramadol hydrochloride 100 MG Extended Release O ral Tablet 03/25/2021 12:00:00 AM EST eCW1 ([facility]) [place] 75 MCG 03/24/2021 12:00:00 AM EST eCW1 ([facility]) [place] 75 MCG 03/24/2021 12:00:00 AM EST eCW1 ([facility]) [place] 75 MCG 03/24/2021 12:00:00 AM EST eCW1 ([facility]) [place] 75 MCG 03/24/2021 12:00:00 AM EST eCW1 ([facility]) [place] 75 MCG 03/24/2021 12:00:00 AM EST eCW1 ([facility]) [place] 75 MCG 03/24/2021 12:00:00 AM EST eCW1 ([facility]) [place] 75 MCG 03/24/2021 12:00:00 AM EST eCW1 ([facility]) [place] 75 MCG 03/24/2021 12:00:00 AM EST eCW1 ([facility]) [place] 75 MCG 03/24/2021 12:00:00 AM EST eCW1 ([facility]) [place] 75 MCG 03/24/2021 12:00:00 AM EST eCW1 ([facility]) tramadol hydrochloride 50 MG Oral Tablet 02/20/2021 12:00:00 AM EDT eCW1 ([facility]) tramadol hydrochloride 50 MG Oral Tablet 02/20/2021 12:00:00 AM EDT eCW1 ([facility]) tramadol hydrochloride 50 MG Oral Tablet 02/20/2021 12:00:00 AM EDT eCW1 ([facility]) tramadol hydrochloride 50 MG Oral Tablet 02/20/2021 12:00:00 AM EDT eCW1 ([facility]) tramadol hydrochloride 50 MG Oral Tablet 02/20/2021 12:00:00 AM EDT eCW1 ([facility]) tramadol hydrochloride 50 MG Oral Tablet 02/20/2021 12:00:00 AM EDT eCW1 ([facility]) Liraglutide 18 MG/3ML 02/19/2021 12:00:00 AM EDT eCW1 ([facility]) Liraglutide 18 MG/3ML 02/19/2021 12:00:00 AM EDT eCW1 ([facility]) Liraglutide 18 MG/3ML 02/19/2021 12:00:00 AM EDT eCW1 ([facility]) Liraglutide 18 MG/3ML 02/19/2021 12:00:00 AM EDT eCW1 ([facility]) Liraglutide 18 MG/3ML 02/19/2021 12:00:00 AM EDT eCW1 ([facility]) Liraglutide 18 MG/3ML 02/19/2021 12:00:00 AM EDT eCW1 ([facility]) Liraglutide 18 MG/3ML 02/19/2021 12:00:00 AM EDT eCW1 ([facility]) Liraglutide 18 MG/3ML 02/19/2021 12:00:00 AM EDT eCW1 ([facility]) Liraglutide 18 MG/3ML 02/19/2021 12:00:00 AM EDT eCW1 ([facility]) Liraglutide 18 MG/3ML 02/19/2021 12:00:00 AM EDT eCW1 ([facility]) Liraglutide 18 MG/3ML 02/19/2021 12:00:00 AM EDT eCW1 ([facility]) Liraglutide 18 MG/3ML 02/19/2021 12:00:00 AM EDT eCW1 ([facility]) Liraglutide 18 MG/3ML 02/19/2021 12:00:00 AM EDT eCW1 ([facility]) Liraglutide 18 MG/3ML 02/19/2021 12:00:00 AM EDT eCW1 ([facility]) [place] 75 MCG 02/19/2021 12:00:00 AM EDT eCW1 ([facility]) Liraglutide 18 MG/3ML 02/19/2021 12:00:00 AM EDT eCW1 ([facility]) Liraglutide 18 MG/3ML 02/19/2021 12:00:00 AM EDT eCW1 ([facility]) Liraglutide 18 MG/3ML 02/19/2021 12:00:00 AM EDT eCW1 ([facility]) Nortriptyline 25 MG Oral Capsule 11/11/2020 12:00:00 AM EDT eCW1 ([facility]) Nortriptyline 25 MG Oral Capsule 11/11/2020 12:00:00 AM EDT eCW1 ([facility]) Nortriptyline 25 MG Oral Capsule 11/11/2020 12:00:00 AM EDT eCW1 ([facility]) Nortriptyline 25 MG Oral Capsule 11/11/2020 12:00:00 AM EDT eCW1 ([facility]) Nortriptyline 25 MG Oral Capsule 11/11/2020 12:00:00 AM EDT eCW1 ([facility]) Nortriptyline 25 MG Oral Capsule 11/11/2020 12:00:00 AM EDT eCW1 ([facility]) Nortriptyline 25 MG Oral Capsule 11/11/2020 12:00:00 AM EDT eCW1 ([facility]) Nortriptyline 25 MG Oral Capsule 11/11/2020 12:00:00 AM EDT eCW1 ([facility]) Nortriptyline 25 MG Oral Capsule 11/11/2020 12:00:00 AM EDT eCW1 ([facility]) Nortriptyline 25 MG Oral Capsule 11/11/2020 12:00:00 AM EDT eCW1 ([facility]) Chlorthalidone 25 MG Oral Tablet 11/06/2020 12:00:00 AM EDT eCW1 ([facility]) Chlorthalidone 25 MG Oral Tablet 11/06/2020 12:00:00 AM EDT eCW1 ([facility]) Chlorthalidone 25 MG Oral Tablet 11/06/2020 12:00:00 AM EDT eCW1 ([facility]) Sucralfate 100 MG/ML Oral Suspension [Carafate] 08/19/2020 12:00:00 AM EDT eCW1 ([facility]) lansoprazole 30 MG Delayed Release Oral Capsule 08/19/2020 12:00:00 AM EDT eCW1 ([facility]) PARoxetine HCl 10 MG 08/19/2020 12:00:00 AM EDT eCW1 ([facility]) Sucralfate 100 MG/ML Oral Suspension [Carafate] 08/19/2020 12:00:00 AM EDT eCW1 ([facility]) lansoprazole 30 MG Delayed Release Oral Capsule 08/19/2020 12:00:00 AM EDT eCW1 ([facility]) Paroxetine HCl 10 MG 08/19/2020 12:00:00 AM EDT eCW1 ([facility]) Sucralfate 100 MG/ML Oral Suspension [Carafate] 08/19/2020 12:00:00 AM EDT eCW1 ([facility]) lansoprazole 30 MG Delayed Release Oral Capsule 08/19/2020 12:00:00 AM EDT eCW1 ([facility]) Paroxetine HCl 10 MG 08/19/2020 12:00:00 AM EDT eCW1 ([facility]) Sucralfate 100 MG/ML Oral Suspension [Carafate] 08/19/2020 12:00:00 AM EDT eCW1 ([facility]) lansoprazole 30 MG Delayed Release Oral Capsule 08/19/2020 12:00:00 AM EDT eCW1 ([facility]) Paroxetine HCl 10 MG 08/19/2020 12:00:00 AM EDT eCW1 ([facility]) Sucralfate 100 MG/ML Oral Suspension [Carafate] 08/19/2020 12:00:00 AM EDT eCW1 ([facility]) Paroxetine HCl 10 MG 08/19/2020 12:00:00 AM EDT eCW1 ([facility]) lansoprazole 30 MG Delayed Release Oral Capsule 08/19/2020 12:00:00 AM EDT eCW1 ([facility]) Paroxetine HCl 10 MG 08/19/2020 12:00:00 AM EDT eCW1 ([facility]) Sucralfate 100 MG/ML Oral Suspension [Carafate] 08/19/2020 12:00:00 AM EDT eCW1 ([facility]) lansoprazole 30 MG Delayed Release Oral Capsule 08/19/2020 12:00:00 AM EDT eCW1 ([facility]) Paroxetine HCl 10 MG 08/19/2020 12:00:00 AM EDT eCW1 ([facility]) Sucralfate 100 MG/ML Oral Suspension [Carafate] 08/19/2020 12:00:00 AM EDT eCW1 ([facility]) lansoprazole 30 MG Delayed Release Oral Capsule 08/19/2020 12:00:00 AM EDT eCW1 ([facility]) Paroxetine HCl 10 MG 08/19/2020 12:00:00 AM EDT eCW1 ([facility]) lansoprazole 30 MG Delayed Release Oral Capsule 08/19/2020 12:00:00 AM EDT eCW1 ([facility]) Sucralfate 100 MG/ML Oral Suspension [Carafate] 08/19/2020 12:00:00 AM EDT eCW1 ([facility]) Estradiol 0.1 MG/ML Vaginal Cream 08/11/2020 12:00:00 AM EDT eCW1 ([facility]) Estradiol 0.1 MG/ML Vaginal Cream 08/11/2020 12:00:00 AM EDT eCW1 ([facility]) Estradiol 0.1 MG/ML Vaginal Cream 08/11/2020 12:00:00 AM EDT eCW1 ([facility]) Phenazopyridine hydrochloride 200 MG Oral Tablet 08/08/2020 12:00:0 0 AM EDT eCW1 ([facility]) Ciprofloxacin 500 MG Oral Tablet [Cipro] 08/08/2020 12:00:00 AM EDT eCW1 ([facility]) Phenazopyridine hydrochloride 200 MG Oral Tablet 08/08/2020 12:00:0 0 AM EDT eCW1 ([facility]) Ciprofloxacin 500 MG Oral Tablet [Cipro] 08/08/2020 12:00:00 AM EDT eCW1 ([facility]) Phenazopyridine hydrochloride 200 MG Oral Tablet 08/08/2020 12:00:0 0 AM EDT eCW1 ([facility]) Ciprofloxacin 500 MG Oral Tablet [Cipro] 08/08/2020 12:00:00 AM EDT eCW1 ([facility]) Phenazopyridine hydrochloride 200 MG Oral Tablet 08/08/2020 12:00:0 0 AM EDT eCW1 ([facility]) Ciprofloxacin 500 MG Oral Tablet [Cipro] 08/08/2020 12:00:00 AM EDT eCW1 ([facility]) Ondansetron 4 MG Disintegrating Oral Tablet 07/07/2020 12:00:00 AM EST eCW1 ([facility]) Ondansetron 4 MG Disintegrating Oral Tablet 07/07/2020 12:00:00 AM EST eCW1 ([facility]) Ondansetron 4 MG Disintegrating Oral Tablet 07/07/2020 12:00:00 AM EST eCW1 ([facility]) Ondansetron 4 MG Disintegrating Oral Tablet 07/07/2020 12:00:00 AM EST eCW1 ([facility]) Ondansetron 4 MG Disintegrating Oral Tablet 07/07/2020 12:00:00 AM EST eCW1 ([facility]) Ondansetron 4 MG Disintegrating Oral Tablet 07/07/2020 12:00:00 AM EST eCW1 ([facility]) Ondansetron 4 MG Disintegrating Oral Tablet 07/07/2020 12:00:00 AM EST eCW1 ([facility]) Ondansetron 4 MG Disintegrating Oral Tablet 07/07/2020 12:00:00 AM EST eCW1 ([facility]) Ondansetron 4 MG Disintegrating Oral Tablet 07/07/2020 12:00:00 AM EST eCW1 ([facility]) gabapentin 100 MG Oral Capsule 06/30/2020 12:00:00 AM EST eCW1 ([facility]) gabapentin 100 MG Oral Capsule 06/30/2020 12:00:00 AM EST eCW1 ([facility]) gabapentin 100 MG Oral Capsule 06/30/2020 12:00:00 AM EST eCW1 ([facility]) gabapentin 100 MG Oral Capsule 06/30/2020 12:00:00 AM EST eCW1 ([facility]) gabapentin 100 MG Oral Capsule 06/30/2020 12:00:00 AM EST eCW1 ([facility]) gabapentin 100 MG Oral Capsule 06/30/2020 12:00:00 AM EST eCW1 ([facility]) gabapentin 100 MG Oral Capsule 06/30/2020 12:00:00 AM EST eCW1 ([facility]) gabapentin 100 MG Oral Capsule 06/30/2020 12:00:00 AM EST eCW1 ([facility]) gabapentin 100 MG Oral Capsule 06/30/2020 12:00:00 AM EST eCW1 ([facility]) PredniSONE ([place]) 10mg 06/23/2020 12:00:00 AM EST eCW1 ([facility]) PredniSONE ([place]) 10mg 06/23/2020 12:00:00 AM EST eCW1 ([facility]) PredniSONE ([place]) 10mg 06/23/2020 12:00:00 AM EST eCW1 ([facility]) PredniSONE ([place]) 10mg 06/23/2020 12:00:00 AM EST eCW1 ([facility]) PredniSONE ([place]) 10mg 06/23/2020 12:00:00 AM EST eCW1 ([facility]) PredniSONE ([place]) 10mg 06/23/2020 12:00:00 AM EST eCW1 ([facility]) PredniSONE ([place]) 10mg 06/23/2020 12:00:00 AM EST eCW1 ([facility]) PredniSONE ([place]) 10mg 06/23/2020 12:00:00 AM EST eCW1 ([facility]) PredniSONE ([place]) 10mg 06/23/2020 12:00:00 AM EST eCW1 ([facility]) Sodium Chloride 0.111 MEQ/ML Nasal [place] [[place] brand of sodium chloride] 06/20/2020 12:00:00 AM EST eCW1 ([facility]) Sodium Chloride 0.111 MEQ/ML Nasal [place] [[place] brand of sodium chloride] 06/20/2020 12:00:00 AM EST eCW1 ([facility]) Sodium Chloride 0.111 MEQ/ML Nasal [place] [[place] brand of sodium chloride] 06/20/2020 12:00:00 AM EST eCW1 ([facility]) duloxetine 30 MG Delayed Release Oral Capsule 05/19/2020 12:00:00 A M EST eCW1 ([facility]) duloxetine 30 MG Delayed Release Oral Capsule 05/19/2020 12:00:00 A M EST eCW1 ([facility]) duloxetine 30 MG Delayed Release Oral Capsule 05/19/2020 12:00:00 A M EST eCW1 ([facility]) duloxetine 30 MG Delayed Release Oral Capsule 05/19/2020 12:00:00 A M EST eCW1 ([facility]) duloxetine 30 MG Delayed Release Oral Capsule 05/19/2020 12:00:00 A M EST eCW1 ([facility]) duloxetine 30 MG Delayed Release Oral Capsule 05/19/2020 12:00:00 A M EST eCW1 ([facility]) duloxetine 30 MG Delayed Release Oral Capsule 05/19/2020 12:00:00 A M EST eCW1 ([facility]) duloxetine 30 MG Delayed Release Oral Capsule 05/19/2020 12:00:00 A M EST eCW1 ([facility]) duloxetine 30 MG Delayed Release Oral Capsule 05/19/2020 12:00:00 A M EST eCW1 ([facility]) duloxetine 30 MG Delayed Release Oral Capsule 05/19/2020 12:00:00 A M EST eCW1 ([facility]) duloxetine 30 MG Delayed Release Oral Capsule 05/19/2020 12:00:00 A M EST eCW1 ([facility]) telmisartan 20 MG Oral Tablet 05/01/2020 12:00:00 AM EST eCW1 ([facility]) telmisartan 20 MG Oral Tablet 05/01/2020 12:00:00 AM EST eCW1 ([facility]) telmisartan 20 MG Oral Tablet 05/01/2020 12:00:00 AM EST eCW1 ([facility]) telmisartan 20 MG Oral Tablet 05/01/2020 12:00:00 AM EST eCW1 ([facility]) telmisartan 20 MG Oral Tablet 05/01/2020 12:00:00 AM EST eCW1 ([facility]) telmisartan 20 MG Oral Tablet 05/01/2020 12:00:00 AM EST eCW1 ([facility]) telmisartan 20 MG Oral Tablet 05/01/2020 12:00:00 AM EST eCW1 ([facility]) telmisartan 20 MG Oral Tablet 05/01/2020 12:00:00 AM EST eCW1 ([facility]) telmisartan 20 MG Oral Tablet 05/01/2020 12:00:00 AM EST eCW1 ([facility]) telmisartan 20 MG Oral Tablet 05/01/2020 12:00:00 AM EST eCW1 ([facility]) telmisartan 20 MG Oral Tablet 05/01/2020 12:00:00 AM EST eCW1 ([facility]) telmisartan 20 MG Oral Tablet 05/01/2020 12:00:00 AM EST eCW1 ([facility]) telmisartan 20 MG Oral Tablet 05/01/2020 12:00:00 AM EST eCW1 ([facility]) telmisartan 20 MG Oral Tablet 05/01/2020 12:00:00 AM EST eCW1 ([facility]) telmisartan 20 MG Oral Tablet 05/01/2020 12:00:00 AM EST eCW1 ([facility]) telmisartan 20 MG Oral Tablet 05/01/2020 12:00:00 AM EST eCW1 ([facility]) Nebulizer - 04/21/2020 12:00:00 AM EST e CW1 ([facility]) Albuterol 0.83 MG/ML Inhalant Solution 04/21/2020 12:00:00 AM EST eCW1 ([facility]) Nebulizer/Tubing/Mouthpiece - 04/21/2020 12:00:00 AM EST eCW1 ([facility]) Nebulizer - 04/21/2020 12:00:00 AM EST e CW1 ([facility]) Albuterol 0.83 MG/ML Inhalant Solution 04/21/2020 12:00:00 AM EST eCW1 ([facility]) Nebulizer/Tubing/Mouthpiece - 04/21/2020 12:00:00 AM EST eCW1 ([facility]) Nebulizer - 04/21/2020 12:00:00 AM EST e CW1 ([facility]) Albuterol 0.83 MG/ML Inhalant Solution 04/21/2020 12:00:00 AM EST eCW1 ([facility]) Nebulizer/Tubing/Mouthpiece - 04/21/2020 12:00:00 AM EST eCW1 ([facility]) Nebulizer - 04/21/2020 12:00:00 AM EST e CW1 ([facility]) Albuterol 0.83 MG/ML Inhalant Solution 04/21/2020 12:00:00 AM EST eCW1 ([facility]) Nebulizer/Tubing/Mouthpiece - 04/21/2020 12:00:00 AM EST eCW1 ([facility]) Albuterol 0.83 MG/ML Inhalant Solution 04/21/2020 12:00:00 AM EST eCW1 ([facility]) Nebulizer/Tubing/Mouthpiece - 04/21/2020 12:00:00 AM EST eCW1 ([facility]) Nebulizer - 04/21/2020 12:00:00 AM EST e CW1 ([facility]) Amlodipine 2.5 MG Oral Tablet 04/21/2020 12:00:00 AM EST eCW1 ([facility]) Albuterol 0.83 MG/ML Inhalant Solution 04/21/2020 12:00:00 AM EST eCW1 ([facility]) Nebulizer - 04/21/2020 12:00:00 AM EST e CW1 ([facility]) Nebulizer/Tubing/Mouthpiece - 04/21/2020 12:00:00 AM EST eCW1 ([facility]) duloxetine 30 MG Delayed Release Oral Capsule 03/25/2020 12:00:00 A M EST eCW1 ([facility]) duloxetine 30 MG Delayed Release Oral Capsule 03/25/2020 12:00:00 A M EST eCW1 ([facility]) duloxetine 30 MG Delayed Release Oral Capsule 03/25/2020 12:00:00 A M EST eCW1 ([facility]) carvedilol 12.5 MG Oral Tablet 03/17/2020 12:00:00 AM EST eCW1 ([facility]) carvedilol 12.5 MG Oral Tablet 03/17/2020 12:00:00 AM EST eCW1 ([facility]) carvedilol 12.5 MG Oral Tablet 03/17/2020 12:00:00 AM EST eCW1 ([facility]) carvedilol 12.5 MG Oral Tablet 03/17/2020 12:00:00 AM EST eCW1 ([facility]) carvedilol 12.5 MG Oral Tablet 03/17/2020 12:00:00 AM EST eCW1 ([facility]) carvedilol 12.5 MG Oral Tablet 03/17/2020 12:00:00 AM EST eCW1 ([facility]) carvedilol 12.5 MG Oral Tablet 03/17/2020 12:00:00 AM EST eCW1 ([facility]) carvedilol 12.5 MG Oral Tablet 03/17/2020 12:00:00 AM EST eCW1 ([facility]) carvedilol 12.5 MG Oral Tablet 03/17/2020 12:00:00 AM EST eCW1 ([facility]) carvedilol 12.5 MG Oral Tablet 03/17/2020 12:00:00 AM EST eCW1 ([facility]) carvedilol 12.5 MG Oral Tablet 03/17/2020 12:00:00 AM EST eCW1 ([facility]) carvedilol 12.5 MG Oral Tablet 03/17/2020 12:00:00 AM EST eCW1 ([facility]) carvedilol 12.5 MG Oral Tablet 03/17/2020 12:00:00 AM EST eCW1 ([facility]) carvedilol 12.5 MG Oral Tablet 03/17/2020 12:00:00 AM EST eCW1 ([facility]) carvedilol 6.25 MG Oral Tablet 03/17/2020 12:00:00 AM EST eCW1 ([facility]) carvedilol 6.25 MG Oral Tablet 03/17/2020 12:00:00 AM EST eCW1 ([facility]) carvedilol 12.5 MG Oral Tablet 03/17/2020 12:00:00 AM EST eCW1 ([facility]) carvedilol 12.5 MG Oral Tablet 03/17/2020 12:00:00 AM EST eCW1 ([facility]) carvedilol 12.5 MG Oral Tablet 03/17/2020 12:00:00 AM EST eCW1 ([facility]) carvedilol 6.25 MG Oral Tablet 03/17/2020 12:00:00 AM EST eCW1 ([facility]) carvedilol 6.25 MG Oral Tablet 03/17/2020 12:00:00 AM EST eCW1 ([facility]) carvedilol 6.25 MG Oral Tablet 03/17/2020 12:00:00 AM EST eCW1 ([facility]) carvedilol 6.25 MG Oral Tablet 03/17/2020 12:00:00 AM EST eCW1 ([facility]) carvedilol 6.25 MG Oral Tablet 03/17/2020 12:00:00 AM EST eCW1 ([facility]) carvedilol 6.25 MG Oral Tablet 03/17/2020 12:00:00 AM EST eCW1 ([facility]) carvedilol 6.25 MG Oral Tablet 03/17/2020 12:00:00 AM EST eCW1 ([facility]) 168 HR Buprenorphine 0.005 MG/HR Transdermal Patch [Bu Trans] 02/28/2020 12:00:00 AM EDT eCW1 ([facility]) 168 HR Buprenorphine 0.005 MG/HR Transdermal Patch [Bu Trans] 02/28/2020 12:00:00 AM EDT eCW1 ([facility])
--- NOTE | 2021-04-18 14:16 | REP ---
INDICATION: DYSPNEA/COUGH. COMPARISON: June 22, 2020. TECHNIQUE: Portable upright AP chest radiograph. FINDINGS: There is a linear opacity in each lung base consistent with platelike atelectasis. Lung melo are otherwise clear. The pleural angles are sharp. Heart is borderline in size unchanged. The thoracic aorta is somewhat tortuous. There are clips in the left upper quadrant of the abdomen. No acute bony abnormality. IMPRESSION: Mild bibasilar platelike atelectasis. Borderline heart size. Otherwise no acute disease. <Electronically signed by Moreno Mullins > 04/18/21 [id number]
[2021-04-18 14:21] LABS: VENOUS BASE EXCESS 4.1 (-2.0-2.0); VENOUS HCO3 29.9 MEQ/L (23.0-27.0); VENOUS O2 SATURATION 63.2 % (60.0-80.0); VENOUS PARTIAL PRESSURE CO2 47.9 mmHg (38.0-50.0); VENOUS PARTIAL PRESSURE O2 31.3 mmHg (30.0-50.0); VENOUS PH 7.413 UNITS (7.330-7.430); VENOUS TOTAL CO2 31.4 MEQ/L (24.0-28.0)
[2021-04-18 14:43] LABS: BASO # 0.1 10^3/uL (0.0-0.2); BASO % 0.6 % (0.0-1.0); EOS # 0.3 10^3/uL (0.0-0.5); EOS % 3.8 % (0.0-3.0); LYMPH # 3.3 10^3/uL (1.5-5.0); LYMPH % 42.6 % (24.0-44.0); MEAN CORPUSCULAR HEMOGLOBIN 31.6 pg (27.0-33.0); MEAN CORPUSCULAR HGB CONC 33.3 g/dl (32.0-36.5); MEAN CORPUSCULAR VOLUME 94.9 fl (80.0-96.0); MONO % 12.5 % (2.0-8.0); NEUTROPHILS # 3.2 10^3/uL (1.5-8.5); NEUTROPHILS % 40.4 % (36.0-66.0); PLATELET COUNT, AUTOMATED 260 10^3/uL (150-450); RED BLOOD COUNT 5.06 10^6/uL (4.00-5.40); WHITE BLOOD COUNT 7.8 10^3/uL (4.0-10.0)
[2021-04-18 14:58] LABS: ALT/SGPT 21 U/L (12-78); BILIRUBIN,DIRECT 0.1 MG/DL (0.0-0.2); BILIRUBIN,TOTAL 0.4 MG/DL (0.2-1.0); BLOOD UREA NITROGEN 15 MG/DL (7-18); CALCIUM LEVEL 9.5 MG/DL (8.8-10.2); CARBON DIOXIDE LEVEL 29 MEQ/L (21-32); CHLORIDE LEVEL 107 MEQ/L (98-107); GLOMERULAR FILTRATION RATE > 60.0 (>45); GLUCOSE, FASTING 103 MG/DL (70-100); NT-PRO BNP 140 PG/ML (<125); POTASSIUM SERUM 3.7 MEQ/L (3.5-5.1); SODIUM LEVEL 142 MEQ/L (136-145); THYROID STIMULATING HORMONE 0.549 uIU/ML (0.358-3.740); TOTAL PROTEIN 7.6 GM/DL (6.4-8.2)
[2021-04-18] MEDS ORDERED: ISOVUE-370 76% 100ML VIAL As Ordered ONE (15:12)
[2021-04-18] MEDS ORDERED: IPRATROPIUM 0.5MG/ALBUTEROL 2.5MG INH SOL UD 3ML (DUONEB) NEB SCH (16:10)
[2021-04-18] MEDS ORDERED: methylPREDNISolone 125MG 2ML VIAL IV ONE (16:10)
[2021-04-18] MEDS ORDERED: ACETAMINOPHEN 500 MG TAB PO ONE (16:15)
--- NOTE | 2021-04-18 16:29 | REP ---
INDICATION: dyspnea. COMPARISON: Comparison chest CT study 12 March 2021. TECHNIQUE: Contrast dose: 75 ML of Isovue [address] technique: Helical scanning is acquired and overlapping 1.5 mm and contiguous 3 mm axial images are reformatted. In addition, maximum intensity projection and multiplanar re-formation images are generated in sagittal and coronal imaging projections. FINDINGS: There is good opacification in the pulmonary arterial tree. There is no evidence of vessel cut off or filling defect to suggest pulmonary embolus. Homogeneous opacity is seen in the thoracic aorta. There is no evidence of aneurysm or dissection. There is no evidence of pleural or pericardial effusion. No hilar or mediastinal mass or adenopathy is observed. There is mild cardiac enlargement unchanged. Lung window settings demonstrate there are areas of ground-glass opacification and some platelike atelectatic change in the lower lobes bilaterally consistent with pneumonia in the right middle lobe as well. These findings are new when compared with the March 12, 2021 study.. 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 There are nodular densities representing recurrent or residual splenic tissue in the left upper quadrant adjacent to the clips. This is unchanged. Normal adrenal glands are seen. There are cysts in the upper pole of each kidney. These findings are unchanged. The visualized upper abdominal structures are otherwise unremarkable. No bony destructive lesion is seen. IMPRESSION: No CT evidence of pulmonary embolus. Bilateral lower lobe infiltrates. Discoid atelectasis right lower lobe and right middle lobe. Mild cardiac enlargement. <Electronically signed by Moreno Mullins > 04/18/21 [id number]
--- NOTE | 2021-04-18 16:40 | ECGEPIP ---
[facility] - ED Test Date: 2021-04-18 Pat Name: LIDIA BAUTISTA Department: Room: - Gender: Female [employer]: [place] : 1960 Requested By: Maida Mcmillan Order Number: [id number] Reading MD: Maida Mcmillan Measurements Intervals [place] Rate: 74 P: 3 MI: 122 QRS: -20 QRSD: 96 T: 55 QT: 400 QTc: 444 Interpretive Statements Normal sinus rhythm Incomplete right bundle branch block ST & T wave abnormality, consider anterolateral ischemia baseline artifact may affect interpretation decreased rate 06/22/20 Electronically Signed on 04-18-2021 16:39:57 EST by Miada Mcmillan
[2021-04-18] MEDS ORDERED: cefTRIAXone SOD 2 GM in D5W MINI-BAG PLUS 50 ML IV ONE (16:45)
[2021-04-18] MEDS ORDERED: AZITHROMYCIN INJ 500 MG, VIAL MATE ADAPTER 1 EACH in NS 250 ML IV ONE (16:45)
[2021-04-18] MEDS ORDERED: PRED20TA PO (16:46)
[2021-04-18] MEDS ORDERED: LEVO750T14 PO (16:46)
[2021-04-18 16:48] LABS: AMPHETAMINES LEVEL URINE NEGATIVE (NEGATIVE); BARBITURATES URINE NEGATIVE (NEGATIVE); BENZODIAZEPINES URINE POSITIVE (NEGATIVE); CANNABINOIDS URINE NEGATIVE (NEGATIVE); COCAINE METABOLITE URINE NEGATIVE (NEGATIVE); METHADONE URINE NEGATIVE (NEGATIVE); OPIATES URINE NEGATIVE (NEGATIVE); PHENCYCLIDINE URINE NEGATIVE (NEGATIVE)
--- OUTSIDE RECORDS SUMMARY | 2021-04-18 16:57 | CCD ---
Author Author [facility] Organization [facility] Address Unknown Phone Unavailable Care Team Providers Care Clinical Informatics Manager Name Role Phone Shepard, Amanda TELEPHONE OPERATOR RECEPTIONIST Unavailable Unavailable Shepard, Amanda TELEPHONE OPERATOR RECEPTIONIST Unavailable Unavailable Shepard, Amanda TELEPHONE OPERATOR RECEPTIONIST Unavailable Unavailable Shepard, Amanda TELEPHONE OPERATOR RECEPTIONIST Unavailable Unavailable Shepard, Amanda TELEPHONE OPERATOR RECEPTIONIST Unavailable Unavailable Shepard, Amanda TELEPHONE OPERATOR RECEPTIONIST Unavailable Unavailable Shepard, Amanda TELEPHONE OPERATOR RECEPTIONIST Unavailable Unavailable Shepard, Amanda TELEPHONE OPERATOR RECEPTIONIST Unavailable Unavailable Shepard, Amanda TELEPHONE OPERATOR RECEPTIONIST Unavailable Unavailable Shepard, Amanda TELEPHONE OPERATOR RECEPTIONIST Unavailable Unavailable Shepard, Amanda TELEPHONE OPERATOR RECEPTIONIST Unavailable Unavailable Shepard, Amanda TELEPHONE OPERATOR RECEPTIONIST Unavailable Unavailable Shepard, Amanda TELEPHONE OPERATOR RECEPTIONIST Unavailable Unavailable SYSTEM IN, NOT IN PROVIDER Unavailable Unavailable FishLigia, PA-C Unavailable Unavailabl e Fish, Ligia BARNEY, PA-C Unavailable Unavailabl e [employer]L[facility], PA-C Unavailable Unavailabl e FishL[facility], PA-C Unavailable Unavailabl e [facility], PA-C Unavailable Unavailabl e [facility], PA-C Unavailable Unavailabl e Fish, Liiga BARNEY, PA-C Unavailable Unavailabl e [facility], PA-C Unavailable Unavailabl e [facility], PA-C Unavailable Unavailabl e [facility], PA-C Unavailable Unavailabl e Fish, [facility], PA-C Unavailable Unavailabl e Fish, [facility], PA-C Unavailable Unavailabl e Fish, [facility], PA-C Unavailable Unavailabl e Fish, [facility], PA-C Unavailable Unavailabl e Fish, [facility], PA-C Unavailable Unavailabl e Fish, [facility], PA-C Unavailable Unavailabl e Fish, [facility], PA-C Unavailable Unavailabl e Fish, [facility], PA-C Unavailable Unavailabl e Fish, [facility], PA-C Unavailable Unavailabl e Fish, [facility], PA-C Unavailable Unavailabl e Fish, [facility], PA-C Unavailable Unavailabl e Fish, [facility], PA-C Unavailable Unavailabl e Fish, [facility], PA-C Unavailable Unavailabl e Fish, [facility], PA-C Unavailable Unavailabl e Fish, [facility], PA-C Unavailable Unavailabl e Fish, [facility], PA-C Unavailable Unavailabl e Fish, [facility], PA-C Unavailable Unavailabl e Fish, [facility], PA-C Unavailable Unavailabl e Fish, [facility], PA-C Unavailable Unavailabl e Fish, [facility], PA-C Unavailable Unavailabl e Fish, [facility], PA-C Unavailable Unavailabl e Fish, [facility], PA-C Unavailable Unavailabl e Fish, [facility], PA-C Unavailable Unavailabl e Fish, [facility], PA-C Unavailable Unavailabl e Fish, [facility], PA-C Unavailable Unavailabl e Fish, [facility], PA-C Unavailable Unavailabl e Julieta Vasquez MD [...] Julieta MD Unavailable Unavailable CALEB, [facility] Unavailable Unavailable [facility], [facility] Unavailable Unavailable [facility], [facility] Unavailable Unavailable [facility], [facility] Unavailable Unavailable [facility], [facility] Unavailable Unavailable [facility]EB, [facility] Unavailable Unavailable [facility], [facility] Unavailable Unavailable [facility]EB, [facility] Unavailable Unavailable [facility]EB, [facility] Unavailable Unavailable [facility]EB, [facility] Unavailable Unavailable [facility]EB, [facility] Unavailable Unavailable [facility]EB, [facility] Unavailable Unavailable [facility]EB, [facility] Unavailable Unavailable CALEB, [facility] Unavailable Unavailable [facility]EB, [facility] Unavailable Unavailable CALEB, [facility] Unavailable Unavailable [facility]EB, [facility] Unavailable Unavailable HAROON, NITO PA Unavailable Unavailable [...] Unavailable HAROON, NITO PA Unavailable Unavailable HAROON, NIOT PA Unavailable Unavailable HAROON, NITO PA Unavailable [...] is protected by Article 27-F of the [facility] Public Health law. If you continue you may have access to information: Regarding HIV / AIDS; Provided by facilities licensed or operated by the [facility] Office of Mental Health; or Provided by the [facility] Office for People With Developmental Disabilities. If such information is present, then the following [facility] mandated warning applies: This information has been [...] law may result in a fine or alf sentence or both. A general authorization for [...] Date Indications Data Source(s ) Unknown [address] [facility] [address] 04/01/2021 12:00:00 AM EST [facility] ([facility] Unknown [address] [facility] [address] 04/01/2021 12:00:00 AM EST eCW1 ([facility]) Unknown [address] [facility] [address] 04/01/2021 12:00:00 AM EST eCW1 ([facility]) Unknown [address] [facility] [address] 04/01/2021 12:00:00 AM EST eCW1 ([facility]) Unknown [address] [facility] [place] [address] 03/30/2021 12:00:00 AM EST eCW1 ([facility]) Unknown [address] [facility] [address] 03/30/2021 12:00:00 AM EST eCW1 ([facility]) Unknown [address] [facility] [address] 03/27/2021 12:00:00 AM EST eCW1 ([facility]) Unknown [address] [facility] [address] 03/26/2021 12:00:00 AM EST eCW1 ([facility]) Unknown [address] [facility] [address] 03/25/2021 12:00:00 AM EST eCW1 ([facility]) Unknown [address] [facility] [place] [address] 03/25/2021 12:00:00 AM EST eCW1 ([facility]) Unknown [address] [facility] [place] [address] 03/19/2021 12:00:00 AM EDT eCW1 ([facility]) Unknown [address] [facility] [address] 03/19/2021 12:00:00 AM EDT [facility]CW1 [facility] [address] [facility] [address] 03/17/2021 12:00:00 AM EDT eCW1 ([facility]) Outpatient Attender: HAROON Ramírez/Klaus/[place]/Patricia mcnamara 03/13/2021 02:15:00 PM EDT MEDENT ([facility], ) Office Visit Attender: Julieta Vasquez MD Main office - [place] 03/05/2021 12:45:00 PM EDT MEDENT ([facility] iv[facility], ) Unknown [address] [facility] [address] 02/20/2021 12:00:00 AM EDT eCW1 ([facility]) Unknown [address] [facility] [address] 02/20/2021 12:00:00 AM EDT eCW1 ([facility]) Office Visit, Est Pt., Level 4 [address] [place] [address] 02/19/2021 12:00:00 AM EDT eCW1 ([facility]) Unknown [address] [facility] [place] [address] 02/19/2021 12:00:00 AM EDT eCW1 ([facility]) Unknown [address] [facility] Y [address] 02/18/2021 12:00:00 AM EDT eCW1 ([facility]) Outpatient [address] [facility] Y [address] 02/06/2021 12:00:00 AM EDT eCW1 ([facility]) Unknown [address] [facility] Y [address] 02/05/2021 12:00:00 AM EDT eCW1 ([facility]) Unknown [address] [facility] [address] 12/24/2020 12:00:00 AM EDT eCW1 ([facility]) Office Visit Attender: Julieta Vasquez MD Main office - [place] 12/18/2020 03:00:00 PM EDT MEDENT ([facility]) Unknown [address] [facility] [address] 12/11/2020 12:00:00 AM EDT eCW1 ([facility]) Unknown [address] [facility] [address] 12/11/2020 12:00:00 AM EDT eCW1 ([facility]) Unknown [address] [facility] [address] 11/27/2020 12:00:00 AM EDT eCW1 ([facility]) Unknown [address] [facility] [address] 11/24/2020 12:00:00 AM EDT eCW1 ([facility]) Unknown [address] [facility] [address] 11/20/2020 12:00:00 AM EDT eCW1 ([facility]) Outpatient Attender: Marci BARNEY PA-C Physical Therapy 11/18/2020 01:30:00 PM EDT MEDENT ([facility]) Unknown [address] [facility] [address] 11/13/2020 12:00:00 AM EDT eCW1 ([facility]) Outpatient [address] [facility] [address] 11/11/2020 12:00:00 AM EDT eCW1 ([facility]) Unknown [address] [facility] [address] 11/10/2020 12:00:00 AM EDT eCW1 ([facility]) Unknown [address] [facility] [address] 11/10/2020 12:00:00 AM EDT eCW1 ([facility]) Unknown [address] [facility] [address] 11/06/2020 12:00:00 AM EDT eCW1 ([facility]) Unknown [address] [facility] [address] 11/05/2020 12:00:00 AM EDT eCW1 ([facility]) Unknown [address] [facility] [address] 10/28/2020 12:00:00 AM EDT eCW1 ([facility]) Office Visit, Est Pt., Level 4 [address] [place] [address] 10/28/2020 12:00:00 AM EDT eCW1 ([facility]) Unknown [address] [facility] [address] 10/27/2020 12:00:00 AM EDT eCW1 ([facility]) Outpatient Attender: Marci BARNEY PA-C Physical Therapy 10/23/2020 08:45:00 AM EDT MEDENT ([facility]) Outpatient Attender: HAROON MARCANO-C Darrell/Klaus/[place]/Patricia mcnamara 10/22/2020 09:45:00 AM EDT MEDENT ([facility]) Unknown [address] [facility] [address] 10/16/2020 12:00:00 AM EDT eCW1 ([facility] Unknown [address] [facility] [address] 10/14/2020 12:00:00 AM EDT eCW1 ([facility]) Unknown [address] [facility] [address] 10/01/2020 12:00:00 AM EDT eCW1 ([facility]) Unknown [address] [facility] [address] 09/25/2020 12:00:00 AM EDT eCW1 ([facility]) Unknown [address] [facility] [address] 08/22/2020 12:00:00 AM EDT eCW1 ([facility]) Outpatient [address] [facility] [address] 08/19/2020 12:00:00 AM EDT eCW1 ([facility]) Unknown [address] [facility] [address] 08/15/2020 12:00:00 AM EDT eCW1 ([facility]) Office Visit, Est Pt., Level 3 PC [address] [place] [address] 08/14/2020 12:00:00 AM EDT eCW1 ([facility]) Unknown [address] [facility] [place] [address] 08/11/2020 12:00:00 AM EDT eCW1 ([facility]) Unknown [address] [facility] [address] 08/11/2020 12:00:00 AM EDT eCW1 ([facility]) Outpatient [address] [facility] [place] [address] 08/08/2020 12:00:00 AM EDT eCW1 ([facility]) Unknown [address] [facility] [address] 08/08/2020 12:00:00 AM EDT eCW1 ([facility]) Unknown [address] [facility] [address] 08/07/2020 12:00:00 AM EDT eCW1 ([facility]) Unknown [address] [facility] [address] 07/31/2020 12:00:00 AM EDT eCW1 ([facility]) Unknown [address] [facility] [address] 07/28/2020 12:00:00 AM EDT eCW1 ([facility]) Outpatient Attender: Julieta Vasquez MD Main office - [place] 07/18/2020 10:30:00 AM EST MEDENT ([facility]) Unknown [address] [facility] Y [address] 07/15/2020 12:00:00 AM EST eCW1 ([facility]) Unknown [address] [facility] Y [address] 07/15/2020 12:00:00 AM EST [facility]CW1 [facility] Outpatient Attender: Amanda tracy 07/14/2020 10:15:00 AM EST MEDENT ([facility]) Outpatient Attender: HAROON MARCANO-C Darrell/Klaus/[place]/Patricia mcnamara 07/07/2020 12:15:00 PM EST MEDENT ([facility] Unknown [address] [facility] [address] 07/07/2020 12:00:00 AM EST eCW1 [facility]) Unknown [address] [facility] [address] 07/04/2020 12:00:00 AM EST eCW1 ([facility]) (TCM) Transition of Care Visit [address] [place] [address] 06/30/2020 12:00:00 AM EST [facility]CW1 [facility] Unknown [address] [facility] [address] 06/25/2020 12:00:00 AM EST eCW1 ([facility]) Unknown [address] [facility] [address] 06/24/2020 12:00:00 AM EST eCW1 ([facility]) Outpatient Referrer: PROVIDER SYSTEM IN 06/22/2020 0 3:26:00 PM EST Rt facial droop, RLE weakness [facility] Rt facial droop, RLE weakness Unknown [address] [facility] [address] 06/20/2020 12:00:00 AM EST eCW1 ([facility]) Unknown [address] [facility] [address] 06/20/2020 12:00:00 AM EST eCW1 ([facility]) Unknown [address] [facility] [address] 06/20/2020 12:00:00 AM EST eCW1 ([facility]) Outpatient Attender: Amanda tracy 06/17/2020 10:15:00 AM EST MEDENT ([facility]) Unknown [address] [facility] [place] [address] 06/13/2020 12:00:00 AM EST eCW1 ([facility]) Unknown [address] [facility] Y [address] 06/05/2020 12:00:00 AM EST eCW1 ([facility]) Outpatient Attender: Amanda tracy 06/04/2020 07:45:00 AM EST MEDENT ([facility]) Unknown [address] [facility] [address] 06/02/2020 12:00:00 AM EST eCW1 ([facility]) Unknown [address] [facility] [place] [address] 05/26/2020 12:00:00 AM EST eCW1 ([facility]) Unknown [address] [facility] [place] [address] 05/26/2020 12:00:00 AM EST eCW1 ([facility]) Unknown [address] [facility] [place] [address] 05/19/2020 12:00:00 AM EST eCW1 ([facility]) Outpatient [address] [facility] [place] [address] 05/19/2020 12:00:00 AM EST eCW1 ([facility]) Unknown [address] [facility] [place] [address] 05/19/2020 12:00:00 AM EST eCW1 ([facility]) Unknown [address] [facility] [place] [address] 05/13/2020 12:00:00 AM EST eCW1 ([facility]) Unknown [address] [facility] [place] [address] 05/12/2020 12:00:00 AM EST eCW1 ([facility]) Unknown [address] [facility] Y [address] 05/02/2020 12:00:00 AM EST eCW1 ([facility]) Unknown [address] [facility] [place] [address] 05/01/2020 12:00:00 AM EST eCW1 ([facility]) Unknown [address] [facility] [place] [address] 05/01/2020 12:00:00 AM EST eCW1 ([facility]) Outpatient [address] [facility] [place] [address] 04/21/2020 12:00:00 AM EST [facility]CW1 [facility] Outpatient Attender: NITO mancuso 04/17/2020 09:30:00 AM EST MEDENT ([facility]) Unknown [address] [facility] [place] [address] 04/16/2020 12:00:00 AM EST eCW1 ([facility]) Unknown [address] [facility] [place] [address] 04/15/2020 12:00:00 AM EST eCW1 ([facility]) Unknown [address] [facility] Y [address] 04/14/2020 12:00:00 AM EST eCW1 ([facility]) Unknown [address] [facility] [place] [address] 04/03/2020 12:00:00 AM EST eCW1 ([facility]) Unknown [address] [facility] [place] [address] 04/01/2020 12:00:00 AM EST eCW1 ([facility]) Unknown [address] [facility], [place] [address] 03/26/2020 12:00:00 AM EST eCW1 ([facility]) Unknown [address] [facility] [place] [address] 03/24/2020 12:00:00 AM EST eCW1 ([facility]) (TCM) Transition of Care Visit [address] [place] [address] 03/17/2020 12:00:00 AM EST eCW1 ([facility]) Unknown [address] [facility] [address] 03/10/2020 12:00:00 AM EDT eCW1 ([facility]) Unknown [address] [facility] [address] 03/06/2020 12:00:00 AM EDT eCW1 ([facility]) Unknown [address] [facility] [place] [address] 03/06/2020 12:00:00 AM EDT eCW1 ([facility]) Outpatient Attender: TIERNEY MURO MD Physical Therapy 08:00:00 AM EDT MEDENT ([facility]) Unknown [address] [facility] [address] 02/28/2020 12:00:00 AM EDT eCW1 ([facility]) Immunizations Vaccine Date Status Description Data Source(s) COVID-19 VACCINE Moderna 03/26/2021 12:00:00 AM EST completed [facility] Vaccine Series Complete: YESThis Data wa s Submitted to [facility] Via ice. COVID-19 VACCINE Moderna 02/23/2021 12:00:00 AM EDT completed [facility] Vaccine Series Complete: NOThis Data was Submitted to [facility] Via ice. Medications Medication Brand Name Start Date Product [...] DAILY DOSE = 1 TABLET SOLD: 04/02/2021 [facility] tramadol hydrochloride 50 MG Oral Tablet traMADol [...] 12:00:00 AM EST 1.0 {patch_to_skin} active eCW1 ([facility]) 168 HR Buprenorphine 0.01 MG/HR Transdermal Patch [BuT rans] Butrans 10 MCG/HR Butrans 10 MCG/HR 03/30/2021 12:00:00 AM EST 1.0 {patch_to_skin} active Butrans 10 MCG/HR eCW1 ([facility]) 168 HR Buprenorphine 0.01 MG/HR Transdermal Patch [BuT rans] Butrans 10 MCG/HR Butrans 10 MCG/HR 03/30/2021 12:00:00 AM EST 1.0 {patch_to_skin} active eCW1 ([facility]) 168 HR Buprenorphine 0.01 MG/HR Transdermal Patch [BuT rans] Butrans 10 MCG/HR Butrans 10 MCG/HR 03/30/2021 12:00:00 AM EST 1.0 {patch_to_skin} active Butrans 10 MCG/HR eCW1 ([facility]) 168 HR Buprenorphine 0.01 MG/HR Transdermal Patch [BuT rans] Butrans 10 MCG/HR Butrans 10 MCG/HR 03/30/2021 12:00:00 AM EST 1.0 {patch_to_skin} active eCW1 ([facility]) 168 HR Buprenorphine 0.01 MG/HR Transdermal Patch [BuT rans] Butrans 10 MCG/HR Butrans 10 MCG/HR 03/30/2021 12:00:00 AM EST 1.0 {patch_to_skin} active Butrans 10 MCG/HR eCW1 ([facility]) montelukast 10 MG Oral Tablet MONTELUKAST SODIUM [...] Medications 03/05/2021 12:00:00 AM EDT active MEDENT ([facility]) 10 mg 02/24/2021 12:00:00 AM [...] Medications 12/18/2020 12:00:00 AM EDT completed MEDENT ([facility]) Divalproex Sodium 250 MG Delayed Release Oral Tablet Divalpr oex Sodium 12/18/2020 12:00:00 AM EDT ORAL completed MEDENT ([facility]) Acetaminophen 325 MG / Hydrocodone [...] TABLET BY MOUTH AT BEDTIME SOLD: 02/24/2021 [facility] Nortriptyline 25 MG Oral Capsule [...] 10.0 {ml_on_an_empty_stomach} suspended Carafate 1 GM/10ML eCW1 ([facility]) Sucralfate 100 MG/ML Oral Suspension [Carafate] Carafa te 1 GM/10ML Carafate 1 GM/10ML 08/19/2020 12:00:00 AM EDT 10.0 {ml_on_an_empty_stomach} active Carafate 1 GM/10ML eCW1 ([facility]) Paroxetine HCl 10 MG Paroxetine HCl 10 MG 08/19/2020 12:00:00 AM ED T 1.0 {tablet_in_the_morning} active Paroxeti ne HCl 10 MG eCW1 ([facility]) Sucralfate 100 MG/ML Oral Suspension [Carafate] Carafa te 1 GM/10ML Carafate 1 GM/10ML 08/19/2020 12:00:00 AM EDT 10.0 {ml_on_an_empty_stomach} active Carafate 1 GM/10ML eCW1 ([facility]) Sucralfate 100 MG/ML Oral Suspension [Carafate] Carafa te 1 GM/10ML Carafate 1 GM/10ML 08/19/2020 12:00:00 AM EDT 10.0 {ml_on_an_empty_stomach} active Carafate 1 GM/10ML eCW1 ([facility]) Sucralfate 100 MG/ML Oral Suspension [Carafate] Carafa te 1 GM/10ML Carafate 1 GM/10ML 08/19/2020 12:00:00 AM EDT 10.0 {ml_on_an_empty_stomach} active Carafate 1 GM/10ML eCW1 ([facility]) PARoxetine HCl 10 MG PARoxetine HCl 10 MG 08/19/2020 12:00:00 AM ED T 1.0 {tablet_in_the_morning} active PARoxeti ne HCl 10 MG eCW1 ([facility]) Sucralfate 100 MG/ML Oral Suspension [Carafate] Carafa te 1 GM/10ML Carafate 1 GM/10ML 08/19/2020 12:00:00 AM EDT 10.0 {ml_on_an_empty_stomach} active Carafate 1 GM/10ML eCW1 ([facility]) Sucralfate 100 MG/ML Oral Suspension [Carafate] Carafa te 1 GM/10ML Carafate 1 GM/10ML 08/19/2020 12:00:00 AM EDT 10.0 {ml_on_an_empty_stomach} active Carafate 1 GM/10ML eCW1 ([facility]) lansoprazole 30 MG Delayed Release Oral Capsule [...] 10.0 {ml_on_an_empty_stomach} active Carafate 1 GM/10ML eCW1 ([facility]) Sucralfate 100 MG/ML Oral Suspension [Carafate] Carafa te 1 GM/10ML Carafate 1 GM/10ML 08/19/2020 12:00:00 AM EDT 10.0 {ml_on_an_empty_stomach} active Carafate 1 GM/10ML eCW1 ([facility]) PARoxetine HCl 10 MG PARoxetine HCl 10 [...] 10.0 {ml_on_an_empty_stomach} active Carafate 1 GM/10ML eCW1 ([facility]) Sucralfate 100 MG/ML Oral Suspension [Carafate] Carafa te 1 GM/10ML Carafate 1 GM/10ML 08/19/2020 12:00:00 AM EDT 10.0 {ml_on_an_empty_stomach} active Carafate 1 GM/10ML eCW1 ([facility]) Paroxetine HCl 10 MG Paroxetine HCl 10 [...] 10.0 {ml_on_an_empty_stomach} active Carafate 1 GM/10ML eCW1 ([facility]) PARoxetine HCl 10 MG PARoxetine HCl 10 MG 08/19/2020 12:00:00 AM ED T 1.0 {tablet_in_the_morning} active PARoxeti ne HCl 10 MG eCW1 ([facility]) Sucralfate 100 MG/ML Oral Suspension [Carafate] Carafa te 1 GM/10ML Carafate 1 GM/10ML 08/19/2020 12:00:00 AM EDT 10.0 {ml_on_an_empty_stomach} active Carafate 1 GM/10ML eCW1 ([facility]) PARoxetine HCl 10 MG PARoxetine HCl 10 [...] 10.0 {ml_on_an_empty_stomach} active Carafate 1 GM/10ML eCW1 ([facility]) lansoprazole 30 MG Delayed Release Oral Capsule [...] 10.0 {ml_on_an_empty_stomach} active Carafate 1 GM/10ML eCW1 ([facility]) lansoprazole 30 MG Delayed Release Oral Capsule Lansop razole 30 MG Lansoprazole 30 MG 08/19/2020 12:00:00 AM EDT 1.0 {capsule_before_a_meal} active Lansoprazole 30 MG eCW1 ([facility]) Sucralfate 100 MG/ML Oral Suspension [Carafate] Carafa te 1 GM/10ML Carafate 1 GM/10ML 08/19/2020 12:00:00 AM EDT 10.0 {ml_on_an_empty_stomach} active Carafate 1 GM/10ML eCW1 ([facility]) Paroxetine HCl 10 MG Paroxetine HCl 10 [...] 10.0 {ml_on_an_empty_stomach} active Carafate 1 GM/10ML eCW1 ([facility]) lansoprazole 30 MG Delayed Release Oral Capsule [...] 10.0 {ml_on_an_empty_stomach} suspended Carafate 1 GM/10ML eCW1 ([facility]) PARoxetine HCl 10 MG PARoxetine HCl 10 [...] 10.0 {ml_on_an_empty_stomach} active Carafate 1 GM/10ML eCW1 ([facility]) lansoprazole 30 MG Delayed Release Oral Capsule [...] 10.0 {ml_on_an_empty_stomach} active Carafate 1 GM/10ML eCW1 ([facility]) lansoprazole 30 MG Delayed Release Oral Capsule Lansop razole 30 MG Lansoprazole 30 MG 08/19/2020 12:00:00 AM EDT 1.0 {capsule_before_a_meal} active Lansoprazole 30 MG eCW1 ([facility]) Sucralfate 100 MG/ML Oral Suspension [Carafate] Carafa te 1 GM/10ML Carafate 1 GM/10ML 08/19/2020 12:00:00 AM EDT 10.0 {ml_on_an_empty_stomach} active Carafate 1 GM/10ML eCW1 ([facility]) Paroxetine HCl 10 MG Paroxetine HCl 10 [...] 10.0 {ml_on_an_empty_stomach} active Carafate 1 GM/10ML eCW1 ([facility]) PARoxetine HCl 10 MG PARoxetine HCl 10 [...] 10.0 {ml_on_an_empty_stomach} active Carafate 1 GM/10ML eCW1 ([facility]) Sucralfate 100 MG/ML Oral Suspension [Carafate] Carafa te 1 GM/10ML Carafate 1 GM/10ML 08/19/2020 12:00:00 AM EDT 10.0 {ml_on_an_empty_stomach} active Carafate 1 GM/10ML eCW1 ([facility]) Paroxetine HCl 10 MG Paroxetine HCl 10 [...] 10.0 {ml_on_an_empty_stomach} active Carafate 1 GM/10ML eCW1 ([facility]) lansoprazole 30 MG Delayed Release Oral Capsule [...] CPAP 07/25/2020 12:00:00 AM EST active MEDENT ([facility], ) Cyclobenzaprine hydrochloride 10 MG Oral Tablet [...] Doxycycline Monohydrate 100 MG Oral Capsule Doxycycline [place] hydrate 100 MG 06/23/2020 12:00:00 AM EST [...] Doxycycline Monohydrate 100 MG Oral Capsule Doxycycline [place] hydrate 100 MG 06/23/2020 12:00:00 AM EST 1.0 {capsule} active Doxycycline Monohydrate 100 MG eCW1 ([facility]) PredniSONE ([place]) 10mg UNK 06/23/2020 12:00:00 AM EST active PredniSONE ([place]) 10mg eCW1 ([facility]) PredniSONE ([place]) 10mg UNK 06/23/2020 12:00:00 AM EST suspended PredniSONE ([place]) 10mg eCW1 ([facility]) PredniSONE ([place]) 10mg UNK 06/23/2020 12:00:00 AM EST active [...] [facility]) Sodium Chloride 0.111 MEQ/ML [place] [[place] brand of sodium chloride] [place] 0.65 % [place] 0.65 % 06/20/2020 12:00:00 AM EST active [place] 0.65 % eCW 1 ([facility]) Sodium Chloride 0.111 MEQ/ML [place] [[place] brand of sodium chloride] [place] 0.65 % [place] 0.65 % 06/20/2020 12:00:00 AM EST active [place] 0.65 % eCW 1 ([facility]) montelukast 10 MG Oral Tablet MONTELUKAST SODIUM 06/20/2020 12:0 0:00 AM EST tablet 30 TAKE ONE TABLET BY MOUTH AT BEDT BEV TAKE ONE TABLET BY MOUTH AT BEDTIME SOLD: 06/20/2020 [facility] Sodium Chloride 0.111 MEQ/ML [place] [[place] brand of sodium chloride] [place] 0.65 % [place] 0.65 % 06/20/2020 12:00:00 AM EST active [place] 0.65 % eCW 1 ([facility]) Sodium Chloride 0.111 MEQ/ML [place] [[place] brand of sodium chloride] [place] 0.65 % [place] 0.65 % 06/20/2020 12:00:00 AM EST active [place] 0.65 % eCW 1 ([facility]) Sodium Chloride 0.111 MEQ/ML [place] [[place] brand of sodium chloride] [place] 0.65 % [place] 0.65 % 06/20/2020 12:00:00 AM EST active eCW1 ([facility]) Sodium Chloride 0.111 MEQ/ML [place] [[place] brand of sodium chloride] [place] 0.65 % [place] 0.65 % 06/20/2020 12:00:00 AM EST active [place] 0.65 % eCW 1 ([facility]) Sodium Chloride 0.111 MEQ/ML [place] [[place] brand of sodium chloride] [place] 0.65 % [place] 0.65 % 06/20/2020 12:00:00 AM EST active [place] 0.65 % eCW 1 ([facility]) Sodium Chloride 0.111 MEQ/ML [place] [[place] brand of sodium chloride] [place] 0.65 % [place] 0.65 % 06/20/2020 12:00:00 AM EST active [place] 0.65 % eCW 1 ([facility]) Sodium Chloride 0.111 MEQ/ML [place] [[place] brand of sodium chloride] [place] 0.65 % [place] 0.65 % 06/20/2020 12:00:00 AM EST active [place] 0.65 % eCW 1 ([facility]) Sodium Chloride 0.111 MEQ/ML [place] [[place] brand of sodium chloride] [place] 0.65 % [place] 0.65 % 06/20/2020 12:00:00 AM EST active [place] 0.65 % eCW 1 ([facility]) montelukast 10 MG Oral Tablet MONTELUKAST SODIUM 06/20/2020 12:0 0:00 AM EST tablet 30 TAKE ONE TABLET BY MOUTH AT BEDT BEV TAKE ONE TABLET BY MOUTH AT BEDTIME SOLD: 08/21/2020 [facility] Sodium Chloride 0.111 MEQ/ML [place] [[place] brand of sodium chloride] [place] 0.65 % [place] 0.65 % 06/20/2020 12:00:00 AM EST active [place] 0.65 % eCW 1 ([facility]) Sodium Chloride 0.111 MEQ/ML [place] [[place] brand of sodium chloride] [place] 0.65 % [place] 0.65 % 06/20/2020 12:00:00 AM EST active eCW1 ([facility]) Sodium Chloride 0.111 MEQ/ML [place] [[place] brand of sodium chloride] [place] 0.65 % [place] 0.65 % 06/20/2020 12:00:00 AM EST active [place] 0.65 % eCW 1 ([facility]) Sodium Chloride 0.111 MEQ/ML [place] [[place] brand of sodium chloride] [place] 0.65 % [place] 0.65 % 06/20/2020 12:00:00 AM EST active [place] 0.65 % eCW 1 ([facility]) Sodium Chloride 0.111 MEQ/ML [place] [[place] brand of sodium chloride] [place] 0.65 % [place] 0.65 % 06/20/2020 12:00:00 AM EST active [place] 0.65 % eCW 1 ([facility]) Sodium Chloride 0.111 MEQ/ML [place] [[place] brand of sodium chloride] [place] 0.65 % [place] 0.65 % 06/20/2020 12:00:00 AM EST active [place] 0.65 % eCW 1 ([facility]) montelukast 10 MG Oral Tablet MONTELUKAST SODIUM 06/20/2020 12:0 0:00 AM EST tablet 30 TAKE ONE TABLET BY MOUTH AT BEDT BEV TAKE ONE TABLET BY MOUTH AT BEDTIME SOLD: 07/21/2020 [facility] Sodium Chloride 0.111 MEQ/ML [place] [[place] brand of sodium chloride] [place] 0.65 % [place] 0.65 % 06/20/2020 12:00:00 AM EST active [place] 0.65 % eCW 1 ([facility]) Sodium Chloride 0.111 MEQ/ML [place] [[place] brand of sodium chloride] [place] 0.65 % [place] 0.65 % 06/20/2020 12:00:00 AM EST active [place] 0.65 % eCW 1 ([facility]) Sodium Chloride 0.111 MEQ/ML [place] [[place] brand of sodium chloride] [place] 0.65 % [place] 0.65 % 06/20/2020 12:00:00 AM EST active [place] 0.65 % eCW 1 ([facility]) Sodium Chloride 0.111 MEQ/ML [place] [[place] brand of sodium chloride] [place] 0.65 % [place] 0.65 % 06/20/2020 12:00:00 AM EST active [place] 0.65 % eCW 1 ([facility]) Sodium Chloride 0.111 MEQ/ML [place] [[place] brand of sodium chloride] [place] 0.65 % [place] 0.65 % 06/20/2020 12:00:00 AM EST active [place] 0.65 % eCW 1 ([facility]) Sodium Chloride 0.111 MEQ/ML [place] [[place] brand of sodium chloride] [place] 0.65 % [place] 0.65 % 06/20/2020 12:00:00 AM EST active [place] 0.65 % eCW 1 ([facility]) Sodium Chloride 0.111 MEQ/ML [place] [[place] brand of sodium chloride] [place] 0.65 % [place] 0.65 % 06/20/2020 12:00:00 AM EST active [place] 0.65 % eCW 1 ([facility]) Sodium Chloride 0.111 MEQ/ML [place] [[place] brand of sodium chloride] [place] 0.65 % [place] 0.65 % 06/20/2020 12:00:00 AM EST active [place] 0.65 % eCW 1 ([facility]) Sodium Chloride 0.111 MEQ/ML [place] [[place] brand of sodium chloride] [place] 0.65 % [place] 0.65 % 06/20/2020 12:00:00 AM EST active [place] 0.65 % eCW 1 ([facility]) Sodium Chloride 0.111 MEQ/ML [place] [[place] brand of sodium chloride] [place] 0.65 % [place] 0.65 % 06/20/2020 12:00:00 AM EST active [place] 0.65 % eCW 1 ([facility]) Sodium Chloride 0.111 MEQ/ML [place] [[place] brand of sodium chloride] [place] 0.65 % [place] 0.65 % 06/20/2020 12:00:00 AM EST active [place] 0.65 % eCW 1 ([facility]) Sodium Chloride 0.111 MEQ/ML [place] [[place] brand of sodium chloride] [place] 0.65 % [place] 0.65 % 06/20/2020 12:00:00 AM EST active [place] 0.65 % eCW 1 ([facility]) Sodium Chloride 0.111 MEQ/ML [place] [[place] brand of sodium chloride] [place] 0.65 % [place] 0.65 % 06/20/2020 12:00:00 AM EST active [place] 0.65 % eCW 1 ([facility]) Sodium Chloride 0.111 MEQ/ML [place] [[place] brand of sodium chloride] [place] 0.65 % [place] 0.65 % 06/20/2020 12:00:00 AM EST active [place] 0.65 % eCW 1 ([facility]) Sodium Chloride 0.111 MEQ/ML [place] [[place] brand of sodium chloride] [place] 0.65 % [place] 0.65 % 06/20/2020 12:00:00 AM EST active [place] 0.65 % eCW 1 ([facility]) Sodium Chloride 0.111 MEQ/ML [place] [[place] brand of sodium chloride] [place] 0.65 % [place] 0.65 % 06/20/2020 12:00:00 AM EST active [place] 0.65 % eCW 1 ([facility]) Sodium Chloride 0.111 MEQ/ML [place] [[place] brand of sodium chloride] [place] 0.65 % [place] 0.65 % 06/20/2020 12:00:00 AM EST active [place] 0.65 % eCW 1 ([facility]) Sodium Chloride 0.111 MEQ/ML [place] [[place] brand of sodium chloride] [place] 0.65 % [place] 0.65 % 06/20/2020 12:00:00 AM EST active eCW1 ([facility]) Sodium Chloride 0.111 MEQ/ML [place] [[place] brand of sodium chloride] [place] 0.65 % [place] 0.65 % 06/20/2020 12:00:00 AM EST active [place] 0.65 % eCW 1 ([facility]) Sodium Chloride 0.111 MEQ/ML [place] [[place] brand of sodium chloride] [place] 0.65 % [place] 0.65 % 06/20/2020 12:00:00 AM EST active eCW1 ([facility]) Sodium Chloride 0.111 MEQ/ML [place] [[place] brand of sodium chloride] [place] 0.65 % [place] 0.65 % 06/20/2020 12:00:00 AM EST active [place] 0.65 % eCW 1 ([facility]) Sodium Chloride 0.111 MEQ/ML [place] [[place] brand of sodium chloride] [place] 0.65 % [place] 0.65 % 06/20/2020 12:00:00 AM EST active [place] 0.65 % eCW 1 ([facility]) Sodium Chloride 0.111 MEQ/ML [place] [[place] brand of sodium chloride] [place] 0.65 % [place] 0.65 % 06/20/2020 12:00:00 AM EST active [place] 0.65 % eCW 1 ([facility]) Sodium Chloride 0.111 MEQ/ML [place] [[place] brand of sodium chloride] [place] 0.65 % [place] 0.65 % 06/20/2020 12:00:00 AM EST active [place] 0.65 % eCW 1 ([facility]) Sodium Chloride 0.111 MEQ/ML [place] [[place] brand of sodium chloride] [place] 0.65 % [place] 0.65 % 06/20/2020 12:00:00 AM EST active [place] 0.65 % eCW 1 ([facility]) Sodium Chloride 0.111 MEQ/ML [place] [[place] brand of sodium chloride] [place] 0.65 % [place] 0.65 % 06/20/2020 12:00:00 AM EST active [place] 0.65 % eCW 1 ([facility]) Sodium Chloride 0.111 MEQ/ML [place] [[place] brand of sodium chloride] [place] 0.65 % [place] 0.65 % 06/20/2020 12:00:00 AM EST active [place] 0.65 % eCW 1 ([facility]) Sodium Chloride 0.111 MEQ/ML [place] [[place] brand of sodium chloride] [place] 0.65 % [place] 0.65 % 06/20/2020 12:00:00 AM EST active [place] 0.65 % eCW 1 ([facility]) Sodium Chloride 0.111 MEQ/ML [place] [[place] brand of sodium chloride] [place] 0.65 % [place] 0.65 % 06/20/2020 12:00:00 AM EST active [place] 0.65 % eCW 1 ([facility]) Sodium Chloride 0.111 MEQ/ML [place] [[place] brand of sodium chloride] [place] 0.65 % [place] 0.65 % 06/20/2020 12:00:00 AM EST active [place] 0.65 % eCW 1 ([facility]) Sodium Chloride 0.111 MEQ/ML [place] [[place] brand of sodium chloride] [place] 0.65 % [place] 0.65 % 06/20/2020 12:00:00 AM EST active [place] 0.65 % eCW 1 ([facility]) Sodium Chloride 0.111 MEQ/ML [place] [[place] brand of sodium chloride] [place] 0.65 % [place] 0.65 % 06/20/2020 12:00:00 AM EST active [place] 0.65 % eCW 1 ([facility]) Sodium Chloride 0.111 MEQ/ML [place] [[place] brand of sodium chloride] [place] 0.65 % [place] 0.65 % 06/20/2020 12:00:00 AM EST active [place] 0.65 % eCW 1 ([facility]) Sodium Chloride 0.111 MEQ/ML [place] [[place] brand of sodium chloride] [place] 0.65 % [place] 0.65 % 06/20/2020 12:00:00 AM EST active [place] 0.65 % eCW 1 ([facility]) Sodium Chloride 0.111 MEQ/ML [place] [[place] brand of sodium chloride] [place] 0.65 % [place] 0.65 % 06/20/2020 12:00:00 AM EST active [place] 0.65 % eCW 1 ([facility]) Sodium Chloride 0.111 MEQ/ML [place] [[place] brand of sodium chloride] [place] 0.65 % [place] 0.65 % 06/20/2020 12:00:00 AM EST active [place] 0.65 % eCW 1 ([facility]) Sodium Chloride 0.111 MEQ/ML [place] [[place] brand of sodium chloride] [place] 0.65 % [place] 0.65 % 06/20/2020 12:00:00 AM EST active [place] 0.65 % eCW 1 ([facility]) Sodium Chloride 0.111 MEQ/ML [place] [[place] brand of sodium chloride] [place] 0.65 % [place] 0.65 % 06/20/2020 12:00:00 AM EST active [place] 0.65 % eCW 1 ([facility]) Sodium Chloride 0.111 MEQ/ML [place] [[place] brand of sodium chloride] [place] 0.65 % [place] 0.65 % 06/20/2020 12:00:00 AM EST active [place] 0.65 % eCW 1 ([facility]) montelukast 10 MG Oral Tablet MONTELUKAST SODIUM 06/20/2020 12:0 0:00 AM EST tablet 30 TAKE ONE TABLET BY MOUTH AT BEDT BEV TAKE ONE TABLET BY MOUTH AT BEDTIME SOLD: 09/19/2020 [facility] Sodium Chloride 0.111 MEQ/ML [place] [[place] brand of sodium chloride] [place] 0.65 % [place] 0.65 % 06/20/2020 12:00:00 AM EST active [place] 0.65 % eCW 1 ([facility]) Sodium Chloride 0.111 MEQ/ML [place] [[place] brand of sodium chloride] [place] 0.65 % [place] 0.65 % 06/20/2020 12:00:00 AM EST active [place] 0.65 % eCW 1 ([facility]) Sodium Chloride 0.111 MEQ/ML [place] [[place] brand of sodium chloride] [place] 0.65 % [place] 0.65 % 06/20/2020 12:00:00 AM EST active [place] 0.65 % eCW 1 ([facility]) Sodium Chloride 0.111 MEQ/ML [place] [[place] brand of sodium chloride] [place] 0.65 % [place] 0.65 % 06/20/2020 12:00:00 AM EST active [place] 0.65 % eCW 1 ([facility]) Sodium Chloride 0.111 MEQ/ML [place] [[place] brand of sodium chloride] [place] 0.65 % [place] 0.65 % 06/20/2020 12:00:00 AM EST active [place] 0.65 % eCW 1 ([facility]) Sodium Chloride 0.111 MEQ/ML [place] [[place] brand of sodium chloride] [place] 0.65 % [place] 0.65 % 06/20/2020 12:00:00 AM EST active [place] 0.65 % eCW 1 ([facility]) 100 mg 06/17/2020 12:00:00 AM EST tablet 20 TAKE ONE TABLET BY MOUTH TWICE A DAY FOR 10 DAYS TAKE ONE TABLET BY MOUTH TWICE A DAY FOR 10 DAYS SOLD: 06/17/2020 [facility] Doxycycline Monohydrate 100 MG Oral Tablet Doxycycline Monoh ydrate 06/17/2020 12:00:00 AM EST ORAL completed MEDENT ([facility]) 75 mg 06/11/2020 12:00:00 AM EST [...] 06/04/2020 12:00:00 AM EST ORAL completed MEDENT ([facility]) 300 mg 06/04/2020 12:00:00 AM EST capsule [...] TWICE A DAY WITH FOOD SOLD: 05/01/2020 [facility] 25 mcg 05/01/2020 12:00:00 AM [...] 12:00:00 AM EST 3.0 {ml_as_needed} active eCW1 ([facility]) Nebulizer - Nebulizer - 04/21/2020 12:00:00 AM EST active Nebulizer - eCW1 ([facility]) Nebulizer - Nebulizer - 04/21/2020 12:00:00 AM EST active Nebulizer - eCW1 ([facility]) Albuterol 0.83 MG/ML Inhalant Solution Albuterol Sulfa te (2.5 MG/3ML) 0.083% Albuterol Sulfate (2.5 MG/3ML) 0.083% 04/21/2020 12:00:00 AM EST 3.0 {ml_as_needed} active eCW1 ([facility]) Albuterol 0.83 MG/ML Inhalant Solution Albuterol Sulfa [...] - 04/21/2020 12:00:00 AM EST active eCW1 ([facility]) Nebulizer - Nebulizer - 04/21/2020 12:00:00 AM [...] 12:00:00 AM EST 3.0 {ml_as_needed} active eCW1 ([facility]) Nebulizer - Nebulizer - 04/21/2020 12:00:00 AM [...] 12:00:00 AM EST 3.0 {ml_as_needed} active eCW1 ([facility]) Albuterol 0.83 MG/ML Inhalant Solution Albuterol Sulfa [...] - 04/21/2020 12:00:00 AM EST active eCW1 ([facility]) Nebulizer/Tubing/Mouthpiece - Nebulizer/Tubing/Mouthpiece - 04/21/2020 12:00:00 AM [...] - 04/21/2020 12:00:00 AM EST active eCW1 ([facility]) Nebulizer/Tubing/Mouthpiece - Nebulizer/Tubing/Mouthpiece - 04/21/2020 12:00:00 AM [...] - 04/21/2020 12:00:00 AM EST active eCW1 ([facility]) Nebulizer/Tubing/Mouthpiece - Nebulizer/Tubing/Mouthpiece - 04/21/2020 12:00:00 AM [...] Natan-Vu 04/17/2020 12:00:00 AM EST completed MEDENT ([facility]) 60 ACTUAT Albuterol 0.09 MG/ACTUAT Metered Dose Inhaler Albu terol Sulfate HFA 04/17/2020 12:00:00 AM EST RESPIRATORY completed MEDENT ([facility], [facility]) 100 mg 04/09/2020 12:00:00 AM EST capsule [...] 1.0 {patch_to_skin} active Butrans 5 MCG/HR eCW1 ([facility]) 168 HR Buprenorphine 0.005 MG/HR Transdermal Patch [Bu Trans] Butrans 5 MCG/HR Butrans 5 MCG/HR 02/28/2020 12:00:00 AM EDT 1.0 {patch_to_skin} active Butrans 5 MCG/HR eCW1 ([facility]) 168 HR Buprenorphine 0.005 MG/HR Transdermal Patch [Bu Trans] Butrans 5 MCG/HR Butrans 5 MCG/HR 02/28/2020 12:00:00 AM EDT 1.0 {patch_to_skin} active Butrans 5 MCG/HR eCW1 ([facility]) 168 HR Buprenorphine 0.005 MG/HR Transdermal Patch [Bu Trans] [place]rans 5 MCG/HR [place]rans 5 MCG/HR 02/28/2020 12:00:00 AM EDT 1.0 {patch_to_skin} active Butrans 5 MCG/HR eCW1 ([facility]) 10 mg 02/26/2020 12:00:00 AM EDT tablet [...] type / Coverage type Policy ID Covered alliance party ID Covered alliance party's relationship to kelley Policy [place] Plan Information [place] [employer] [place] [id number] Self [id number] [place] [id number] Self [id number] [facility] MEDICARE COMPLETE G [id number] Self [id number] MEDICARE COMPLETE [id number] SP [id number] MEDICARE COMPLETE [id number] SP [id number] [facility] Commercial [id number] Self [id number] MEDICARE COMPLETE [id number] SP [id number] MEDICARE COMPLETE [id number] SP [id number] MEDICARE COMPLETE [id number] SP [id number] [employer] [place] [id number] [employer] Part B [id number] [facility] [id number] ANSMedicare Part B [id number]-3549s45gb606 ANSI-Medicare Part B 1c3ns41h-mdj8-1440-x030-r2q7vmg11p88 1s1ax80w-iyr5-3817-u784-k6x8izi95c79 ANSI-Medicare Part B 07urf722-5287-9595-e85j-u0211745kc5z 19tiq262-4743-9904-q32v-w1293326cu1i ANSI-Medicare Part B 1ha272i3-31m8-0505-go04-95r4q87sg52a 5yg110x0-55r5-0090-mk42-88q5h56hn08v ANSI-Medicare Part B 0na1qhpz-2y4t-29v8-oi1a-12vl98k29058 1xk2sask-8f7o-29s0-au7i-30ht82h91540 ANSI-Medicare Part B iu2d5605-l5w8-38tt-80dl-076i226125ku go7f2490-h0d5-07nl-87rm-735k934406xc ANSI-Medicare Part B 7e77423y-5166-5652-i64e-74txtu9b6wv1 4y97630x-6269-1161-v49y-82vtgb6w8ok4 [facility]/Medicare Solu Commercial [id number] Self [id number] ANSI-Medicare Part B u98z5p1b-ux9e-21ta-2ox5-uea16d19ffc1 c88q8l7q-fh4i-22ue-2lu4-ffg77e50ezs0 ANSI-Medicare Part B tk4kw9nc-162d-3z4h-7y03-054s8go1488q rc8ob9rx-588c-7p5b-5l67-919d8zh0390s ANSI-Medicare Part B 17kx6267-4jiz-16ep-8308-3n07pj6r8352 44ob1167-1nkf-61kf-5579-2q41uu4o8479 ANSI-Medicare Part B bu7e2g41-2869-4b74-9y4p-v35wa5477436 hp0l9z49-6963-0w81-0m4a-f69eh0408134 ANSI-Medicare Part B i4571rhe-7pm5-5xly-t16t-78m4an951px0 t5453kmm-4xg3-7qxp-d21l-33h9au291vg0 ANSI-Medicare Part B d465010i-9qjo-6242-89h3-1t814995p05l l608079a-6fgt-1356-14f1-9c602608l05d ANSI-Medicare Part B 26tq45b5-hq20-6758-1xb1-235j6100776q 47gl41b1-cg65-7691-4lj5-617v7107730p ANSI-Medicare Part B 3369j731-y0n4-89y8-d213-i97098727t64 3969g953-u1t6-92t0-z216-v73901937p33 ANSI-Medicare Part B t8t3q0v4-2v5f-0h81-c914-c6936zwz4780 k7j5v4d2-3u6b-8c72-q938-k8188sxy1713 ANSI-Medicare Part B 75ia20e5-9639-64h1-o72m-w3as9494mwkz 58vc77c6-2685-36q1-m23l-j8kd3107yyep ANSI-Medicare Part B 86yk28pb-s4kb-949o-272y-9097146812k7 10he70ox-r6rp-752z-141v-4229012650j9 ANSI-Medicare Part B i6g1jn39-1320-682w-39v0-6n2m5262o7e6 y9q3wu64-4933-817f-21u1-4k7y0207e3h5 [facility]/Medicare Solu Commercial [id number]66.0 Self [id number] ANSI-Medicare Part B o7i4t74y-ct6d-78q2-n8kn-g577152q5q3l c7d6q37u-dt6w-73g4-r9jn-x600523v9k1r ANSI-Medicare Part B e5cj3o94-4852-5sz3-yca2-1b205kn23158 k0ev5t02-0580-9bn1-wnt8-4i343lt12309 ANSI-Medicare Part B 6c4hl031-e2ft-7570-8w8u-502320954881 4e7eh080-s4gd-9746-0n6s-942267422581 ANSI-Medicare Part B j236mb65-n09m-8574-78qj-2f2064r1kt64 w440iw07-z87u-0175-19jr-6e0691o8om96 [facility]/Medicare Commercial 2.16.840.1.1138 83.3.227.99.6619.8643.0 Self ANSI-Medicare Part B q6uk16yn-f3sr-7651-y7a4-ij6p6c214600 r3co96xp-z8ef-1927-e8n5-gh6i6o660718 ANSI-Medicare Part B 08j8h0b9-1ls4-566h-6n76-ofcq61d82260 11m4g7z7-5ah7-601x-5p57-sxwy18w49469 ANSI-Medicare Part B 16f7mc14-4777-02bg-gm80-f28k6327qnv6 11q9tg57-3017-25xl-wz68-u03r2643vnx0 ANSI-Medicare Part B hx63m145-1667-1429-f777-a55o5298j5u8 qg81v979-5780-5496-o453-i59m6661f1v6 ANSI-Medicare Part B 482kj622-0651-6r0z-krr9-i962501451i7 258wc257-2520-4y4j-nae8-n754509191p2 ANSI-Medicare Part B b8ai57gd-x372-8w23-6o0d-6d45170ghj6h p5ie67so-x691-2s53-1b0z-9z25674kvg6r ANSI-Medicare Part B 11d4d72b-3i00-0b00-cnd1-h404907ni645 27e6d73g-1c22-0b50-fkq5-a197622iz010 ANSI-Medicare Part B [id number] [facility]/Medicare Solu Commercial [id number] Self [id number] ANSI-Medicare Part B [id number] [facility]/Medicare Solu Commercial [id number] Self [id number] ANSI-Medicare Part B [id number] ANSI-Medicare Part B [id number] ANSI-Medicare Part B [id number] ANSI-Medicare Part B [id number] ANSI-Medicare Part B [id number] ANSI-Medicare Part B [id number] ANSI-Medicare Part B [id number] ANSI-Medicare Part B [id number] ANSI-Medicare Part B [id number] [facility] [id number] Self [id number] [facility] [id number] Self MEDICARE [id number] SP [id number] A Medicare P UNAVAILABLE S UNAVAILA BLE Self Pay S [id number] S [id number] [facility] O [id number] S [id number] [facility] MEDICARE-O/P [id number] 18 [id number] MEDICARE COMPLETE [id number] SP [id number] A MEDICARE COMPLETE [id number] SP [id number] MEDICARE [id number] SP [id number] MEDICARE COMPLETE-UHC O [id number] S [id number] MEDICARE COMPLETE-UH O [id number] S [id number] ANSI-Medicare Part B [id number] ANSI-Medicare Part B [id number] [facility]-Medicare Part B [id number] Problems, Conditions, and Diagnoses Code Display Name Description Problem Type Effective Dates Data Source(s) Rt facial droop, RLE weakness Rt facial droop, RLE wea kness Diagnosis 06/22/2020 03:26:00 PM [facility] G44.221 Chronic tension-type headache Chronic tension-type hea dache Problem 12/18/2020 12:00:00 AM EDT MEDENT ([facility], ) G43.009 Migraine without aura, not refractory Mi graine without aura, not refractory Problem 12/18/2020 12:00:00 AM EDT MEDENT ([facility], ) G89.29 [id number] Other chronic pain Problem 11/11/2020 12:00: 00 AM EDT eCW1 ([facility]) F41.9 [id number] Anxiety Problem 08/19/2020 12:00:00 AM ED T eCW1 ([facility]) N94.89 [id number] Burning sensation of vulva Problem 12:00:00 AM EDT eCW1 ([facility]) R20.0 Skin sensation disturbance Skin sensation disturbance Problem 07/18/2020 12:00:00 AM EST MEDENT ([facility], ) R53.1 Malaise and fatigue Malaise and fatigue Problem 0 07/18/2020 12:00:00 AM EST MEDENT ([facility], ) Z86.73 History of cerebrovascular accident with out residual deficits History of cerebrovascular accident without residual deficits Problem 09/2020 12:00:00 AM EST MEDENT ([facility], ) 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 Problem 07/18/2020 12:00:00 AM EST MEDENT ([facility], ) M54.2 Neck pain Neck pain Problem 07/18/2020 12:00:00 AM ES T MEDENT ([facility], ) 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 Problem 07/18/2020 12:00:00 AM EST MEDENT ([facility], ) M54.5 Low back pain Low back pain Problem 07/18/2020 12:00:00 AM EST MEDENT ([facility] ) M43.06 Spondylolysis Spondylolysis Problem 07/18/2020 12:00:00 AM EST MEDENT ([facility], ) Z12.2 [id number] Encounter for screening for lung cancer P john 06/30/2020 12:00:00 AM EST eCW1 ([facility]) G89.4 [id number] Chronic pain syndrome Problem 05/19/2020 12: 00:00 AM EST eCW1 ([facility]) N28.1 [id number] Renal cyst Problem 03/17/2020 12:00:00 AM ES T eCW1 ([facility]) Surgeries/Procedures Procedure Description Date Indications Data Source(s) OFFICE OUTPATIENT VISIT 15 MINUTES 03/13/2021 12:00:00 AM EDT MEDENT ([facility], ) PHYSICIAN TELEPHONE EVALUATION 11-20 MIN 03/05/2021 12 :00:00 AM EDT MEDENT ([facility], ) Magnetic Resonance Angiogtaphy Head W/O Contrast Material(S) 12/23/2020 12:00:00 AM EDT MEDENT ([facility] ) Magnetic Resonance Angiogtaphy Head W/O Contrast Material(S) 12/23/2020 12:00:00 AM EDT MEDENT ([facility] ) MRI BRAIN BRAIN STEM W/O CONTRAST MATERIAL 12/23/2020 12:00:00 AM EDT MEDENT ([facility] ) MRI BRAIN BRAIN STEM W/O CONTRAST MATERIAL 12/23/2020 12:00:00 AM EDT MEDENT ([facility], ) PHYSICIAN TELEPHONE EVALUATION 11-20 MIN 12/18/2020 12 :00:00 AM EDT MEDENT ([facility]) X-Ray Spine Lumbosacral Complete Inc Bending Views Min Of 6 11/18/2020 12:00:00 AM EDT MEDENT ([facility]) OFFICE OUTPATIENT VISIT 25 MINUTES 11/18/2020 12:00:00 AM EDT MEDENT ([facility]) ARTHROCENTESIS ASPIR&/INJECTION MAJOR JT/BURSA 021 12:00:00 AM EDT MEDENT ([facility]) OFFICE OUTPATIENT VISIT 25 MINUTES 10/23/2020 12:00:00 AM EDT MEDENT ([facility]) OFFICE OUTPATIENT VISIT 15 MINUTES 10/22/2020 12:00:00 AM EDT MEDENT ([facility], ) OFFICE OUTPATIENT NEW 60 MINUTES 07/18/2020 12:00:00 A M EST MEDENT ([facility], ) PRESSURIZED/NONPRESSURIZED INHALATION TREATMENT 2019 12:00:00 AM EST MEDENT ([facility], [facility]) Results ID Date Data Source [facility] MRI ABDOMEN WITHOUT CONTRAST 08/21/2020 12:00:00 AM EDT eCW1 ([facility]) Name Value Range Interpretation Code Description Data Yue rce(s) Supporting Document(s) [facility] MRI ABDOMEN WITHOUT CONTRA ST eCW1 ([facility]) ID Date Data Source CBC with Differential 08/19/2020 12:00:00 AM EDT eCW1 ([facility]) Name Value Range Interpretation Code Description Data Yue rce(s) Supporting Document(s) 8.4 4.0-10.0 WHITE BLOOD COUNT eCW1 ([facility]) 51.7 36.0-47.0 HEMATOCRIT eCW1 ([facility]) 16.7 12.0-15.5 HEMOGLOBIN eCW1 ([facility]) 5.29 4.00-5.40 RED BLOOD COUNT eCW1 ([facility]) 31.6 27.0-33.0 MEAN CORPUSCULAR HEMOGLOB IN eCW1 [...] [facility]) 39.9 24.0-44.0 LYMPH % eCW1 ([facility]) 4.2 0.0-3.0 EOS % eCW1 ([facility]) 11.3 2.0-8.0 MONO % eCW1 ([facility]) 3.7 1.5-8.5 NEUTROPHILS # eCW1 ([facility]) 3.4 1.5-5.0 LYMPH # eCW1 ([facility]) 0.6 0.0-1.0 BASO % eCW1 ([facility]) 0.1 0.0-0.2 BASO # eCW1 ([facility]) 0.4 0.0-0.5 EOS # eCW1 ([facility]) 1.0 0.0-0.8 MONO # eCW1 ([facility]) ID Date Data Source [id number] TUMOR MARKER,CARBOHYDRA 08/19/2020 12:00:00 AM EDT eC W1 ([facility]) Name Value Range Interpretation Code Description Data Yue rce(s) Supporting Document(s) 16.4 <35.0 [id number] TUMOR MARKER,CARBO HYDRA eCW1 ([facility]) ID Date Data Source URINE CULTURE 08/08/2020 12:00:00 AM EDT eCW1 ([facility]) Name Value Range Interpretation Code Description Data Yue rce(s) Supporting Document(s) Laboratory studies (set) URINE CULTU RE eCW1 ([facility]) ID Date Data Source [id number] 07/14/2020 11:21:00 AM EST MEDENT ([facility]) Name Value Range Interpretation Code Description Data Yue rce(s) Supporting Document(s) Bacteria identified in Urine by Culture Laboratory test result MEDENT ([facility]) ID Date Data Source [id number] 07/14/2020 12:00:00 AM EST [facility] Name Value Range Interpretation Code Description Data Yue rce(s) Supporting Document(s) SARS-CoV2 Rapid Antigen Negative [facility] This lab was reported by [facility]. ID Date Data Source [id number] 06/22/2020 01:49:00 PM EST [facility] Name Value Range Interpretation Code Description Data Yue rce(s) Supporting Document(s) SARS coronavirus 2 RNA [Presence] in Res piratory specimen by BARBARA with probe detection NEGATIVE [facility] This lab was ordered by [facility] a nd reported by [facility]. ID Date Data Source [id number] 06/04/2020 09:27:00 AM EST MEDENT ([facility]) Name Value Range Interpretation Code Description Data Yue rce(s) Supporting Document(s) WBC, Urine Auto 1 /HPF 0-3 MEDENT ([facility], [facility]) RBC, Urine Auto 1 /HPF 0-3 MEDENT ([facility]) Bacteria, Urine Auto Laboratory test result MEDENT ([facility]) Squamous Epithelial Cell Ur AU 0 /HPF 0-6 MEDENT ([facility]) Mucus, Urine Laboratory test result MEDE NT ([facility]) Hyaline Cast, Urine Auto 0 /LPF 0-1 MEDEN T ([facility]) ID Date Data Source [id number] 06/04/2020 09:27:00 AM EST MEDENT ([facility]) Name Value Range Interpretation Code Description Data Yue rce(s) Supporting Document(s) Bacteria identified in Urine by Culture Laboratory test result MEDENT ([facility]) FULL REPORT IN LAB NOTES (eCW and Med[facility] ). NO GROWTH CLINICAL SIGNIFICANCE 2 OR MORE ORGANISMS ID Date Data Source [id number] 06/04/2020 12:00:00 AM EST [facility] Name Value Range Interpretation Code Description Data Yue rce(s) Supporting Document(s) SARS coronavirus 2 Ag Negative [facility] This lab was ordered by [facility] and reported by [facility]. ID Date Data Source UA URINALYSIS 05/19/2020 12:00:00 AM EST eCW1 ([facility]) Name Value Range Interpretation Code Description Data Yue rce(s) Supporting Document(s) Laboratory studies (set) UA URINALYS IS eCW1 ([facility]) ID Date Data Source [id number] 05/12/2020 08:16:00 PM EST [facility] Name Value Range Interpretation Code Description Data Yue rce(s) Supporting Document(s) SARS coronavirus 2 RNA [facility] This lab was ordered by [facility] and reported by [facility]. ID Date Data Source [id number] 05/01/2020 02:32:00 PM EST [facility] Name Value Range Interpretation Code Description Data Yue rce(s) Supporting Document(s) SARS coronavirus 2 RNA [Presence] in Res piratory specimen by BARBARA with probe detection [facility] This lab was ordered by [facility] a nd reported by [facility]. ID Date Data Source [id number] 04/17/2020 11:36:00 AM EST MEDENT ([facility]) Name Value Range Interpretation Code Description Data Yue rce(s) Supporting Document(s) Blood Urea Nitrogen 11 mg/dL 7-18 MEDENT ([facility]) Creatinine For GFR 0.85 mg/dL 0.55-1.30 MEDENT ([facility]) Glucose, Fasting 85 mg/dL 70-100 MEDENT ([facility]) Glomerular Filtration Rate Laboratory test result MEDENT ([facility]) <content>Units are mL/min/1.73 m2</content>
<content></content>
<content>Chronic Kidney Disease Staging per NKF:</content>
<content></content>
<content>Stage I & II GFR >=60 Normal to Mildly Decreased</content>
<content>Stage III GFR 30- 59 Moderately Decreased</content>
<content>Stage IV GFR 15-29 Severely Decreased</content>
<content>Stage V GFR <15 Very Little GFR Left</content>
<content>ESRD GFR <15 on MARKETING MGR</content>
<content></content> Sodium Level 141 meq/L 136-145 MEDENT ([facility], [facility]) Chloride Level 108 meq/L 98-107 MEDENT ([facility], [facility]) Potassium Serum 3.9 meq/L 3.5-5.1 MEDENT ([facility], [facility]) Carbon Dioxide Level 27 meq/L 21-32 [facility]) Calcium Level 9.7 mg/dL 8.5-10.1 MEDENT ([facility], [facility]) Ast/Sgot 9 U/L 7-37 MEDENT ([facility], [facility]) Anion Gap 6 meq/L 8-16 MED[facility] ([facility]) Alt/SGPT 17 U/L 12-78 MED[facility] ([facility], [facility]) Alkaline Phosphatase 88 U/L 45-117 [facility] ( [facility]) Bilirubin,Total 0.4 mg/dL 0.2-1.0 MEDENT ([facility], [facility]) Albumin 3.7 GM/DL 3.2-5.2 MEDENT ([facility], [facility]) Total Protein 6.7 GM/DL 6.4-8.2 MEDENT ([facility], [facility]) Albumin/Globulin Ratio 1.2 1.2-2.2 MEDENT ([facility], [facility]) ID Date Data Source [id number] 04/17/2020 11:36:00 AM EST MEDENT ([facility], [facility]) Name Value Range Interpretation Code Description Data Yue rce(s) Supporting Document(s) White Blood Count 7.6 10 4.0-10.0 MEDENT ([facility], [facility]) Hemoglobin 14.9 g/dL 12.0-15.5 MEDENT ([facility]) Red Blood Count 4.77 10 4.00-5.40 MEDENT ([facility], [facility]) Hematocrit 46.3 % 36.0-47.0 MEDENT ([facility]) Mean Corpuscular Hemoglobin 31.2 pg 27.0-33.0 MEDENT ([facility], [facility]) Mean Corpuscular Volume 97.1 fl 80.0-96.0 M EDENT ([facility], [facility]) Mean Corpuscular HGB Conc 32.2 g/dL 32.0-36.5 MEDENT ([facility], [facility]) Platelet Count, Automated 255 10 150-450 MEDENT ([facility], [facility]) Red Cell Distribution Width 14.8 % 11.5-14.5 MEDENT ([facility], [facility]) Lymph % 40.2 % 24.0-44.0 MEDENT ([facility], [facility]) [place] % 11.6 % 0.0-5.0 MEDENT ([facility], [facility]) Neutrophils % 42.6 % 36.0-66.0 MEDENT ([facility], [facility]) Baso % 0.7 % 0.0-1.0 MEDENT ([facility], [facility]) Eos % 4.6 % 0.0-3.0 MEDENT ([facility], [facility]) Neutrophils # 3.3 10 1.5-8.5 MEDENT ([facility], [facility]) Nucleated Red Blood Cell % 0.0 % 0-0 MED ENT ([facility], [facility]) Immature Granulocyte % 0.3 % 0-3.0 MEDENT ([facility], [facility]) Eos # 0.4 10 0.0-0.5 MEDENT ([facility] Lymph # 3.1 10 1.5-5.0 MEDENT ([facility]) [place] # 0.9 10 0.0-0.8 MEDENT ([facility]) Baso # 0.1 10 0.0-0.2 MEDENT ([facility], [facility]) ID Date Data Source DRUG EVAL COMPREHENSIVE 03/22/2020 04:46:20 AM EST eCW1 ([facility]) Name Value Range Interpretation Code Description Data [...] NT-PRO BNP 03/18/2020 04:57:51 AM EST eCW1 ([facility]) Name Value Range Interpretation Code Description Data Yue rce(s) Supporting Document(s) 112 NT-PRO BNP eCW1 ([facility]) ID Date Data Source C REACTIVE PROTEIN QUANTITATIV (At [facility]) 03/18/2020 04:57 :44 AM EST eCW1 ([facility]) Name Value Range Interpretation Code Description Data Yue rce(s) Supporting Document(s) < 0.30 C REACTIVE PROTEIN QUANTI TATIV eCW1 ([facility]) ID Date Data Source [id number] 03/03/2020 02:03:00 PM EDT MEDENT ([facility]) Name Value Range Interpretation Code Description Data Yue rce(s) Supporting Document(s) Laboratory test finding (navigational concept) Laboratory test result MEDENT ([facility]) Procedure Social History Code Duration Value Status Description Data Source(s ) Smoking 03/13/2021 12:00:00 AM EDT Patient is a former smoker completed Patient is a former smoker MEDENT ([facility], ) Smoking 03/01/2021 12:00:00 AM [...] Value Range Interpretation Code Description Data Source(s) Ringle body weight 140 [lb_av] 140 [lb_av] NOE Palacios ([facility]) Systolic blood pressure 100 mm[Hg] 100 mm[Hg] M EDENT ([facility]) Diastolic blood pressure 62 mm[Hg] 62 mm[Hg] [facility] ([facility]) Heart rate 80 /min 80 /min [facility] ([facility]) Oxygen saturation in Arterial blood by Pulse oximetry 95 % 95 % [facility] ([facility]) Respiratory rate 18 /min 18 /min [facility] ( [facility]) Body height 68 [in_i] 68 [in_i] [facility] ([facility]) 5'8" Body weight 223.00 [lb_av] 223.00 [lb_av] MEDEN T ([facility]) Body mass index (BMI) [Ratio] 33.9 kg/m2 33.9 k g/m2 [facility] ([facility]) Body weight 101.153 kg 101.153 kg [facility] ([facility]) Body surface area Derived from formula 2.14 m2 2.14 m2 [facility] ([facility]) Body mass index (BMI) [Ratio] 34.06 kg/m2 34.06 kg/m2 eCW1 ([facility]) Heart rate 77 /min 77 /min eCW1 ([facility]) Body weight 222.4 [lb_av] 222.4 [lb_av] eCW1 ([facility]) Body temperature 99.0 [degF] 99.0 [degF] eCW1 ( [facility]) Body weight 100.88 kg 100.88 kg eCW1 ([facility]) Body height 67.75 [in_i] 67.75 [in_i] eCW1 ([facility]) Systolic blood pressure 128 mm[Hg] 128 mm[Hg] e CW1 ([facility]) Respiratory rate 18 /min 18 /min eCW1 ([facility]) Diastolic blood pressure 72 mm[Hg] 72 mm[Hg] eCW1 ([facility]) Systolic blood pressure 116 mm[Hg] 116 mm[Hg] e CW1 ([facility]) Body weight 219 [lb_av] 219 [lb_av] eCW1 ([facility]) Body height 67.75 [in_i] 67.75 [in_i] eCW1 ([facility]) Body mass index (BMI) [Ratio] 33.54 kg/m2 33.54 kg/m2 eCW1 ([facility]) Heart rate 83 /min 83 /min eCW1 ([facility]) Respiratory rate 18 /min 18 /min eCW1 ([facility]) Body temperature 97.7 [degF] 97.7 [degF] eCW1 ( [facility]) Diastolic blood pressure 76 mm[Hg] 76 mm[Hg] eCW1 ([facility]) Body temperature 98.4 [degF] 98.4 [degF] eCW1 ( [facility]) Body weight 218 [lb_av] 218 [lb_av] eCW1 ([facility]) Body height 67.75 [in_i] 67.75 [in_i] eCW1 ([facility]) Body mass index (BMI) [Ratio] 33.39 kg/m2 33.39 kg/m2 eCW1 ([facility]) Heart rate 73 /min 73 /min eCW1 ([facility]) Respiratory rate 20 /min 20 /min eCW1 ([facility]) Systolic blood pressure 124 mm[Hg] 124 mm[Hg] e CW1 ([facility]) Diastolic blood pressure 80 mm[Hg] 80 mm[Hg] eCW1 ([facility]) Body weight 218.4 [lb_av] 218.4 [lb_av] eCW1 ([facility]) Body height 67.75 [in_i] 67.75 [in_i] eCW1 ([facility]) Body mass index (BMI) [Ratio] 33.45 kg/m2 33.45 kg/m2 eCW1 ([facility]) Heart rate 82 /min 82 /min eCW1 ([facility]) Respiratory rate 18 /min 18 /min eCW1 ([facility]) Body temperature 97.6 [degF] 97.6 [degF] eCW1 ( [facility]) Systolic blood pressure 118 mm[Hg] 118 mm[Hg] e CW1 ([facility]) Diastolic blood pressure 80 mm[Hg] 80 mm[Hg] eCW1 ([facility]) Oxygen saturation in Arterial blood by Pulse oximetry 95 % 95 % [facility] Body weight 221.25 [lb_av] 221.25 [lb_av] MEDEN T ([facility]) Body weight 100.359 kg 100.359 kg [facility] ([facility]) Systolic blood pressure 118 mm[Hg] 118 mm[Hg] M EDENT ([facility]) Diastolic blood pressure 62 mm[Hg] 62 mm[Hg] MEDENT ([facility]) Heart rate 61 /min 61 /min [facility] Oxygen saturation in Arterial blood by Pulse oximetry 95 % 95 % [facility] ([facility]) Body weight 221.25 [lb_av] 221.25 [lb_av] MEDEN T ([facility]) Body weight 100.359 kg 100.359 kg [facility] ([facility]) Body weight 213 [lb_av] 213 [lb_av] eCW1 ([facility]) Body height 67.75 [in_i] 67.75 [in_i] eCW1 ([facility]) Body mass index (BMI) [Ratio] 32.62 kg/m2 32.62 kg/m2 eCW1 ([facility]) Heart rate 83 /min 83 /min eCW1 ([facility]) Respiratory rate 18 /min 18 /min eCW1 ([facility]) Body temperature 97.3 [degF] 97.3 [degF] eCW1 ( [facility]) Systolic blood pressure 124 mm[Hg] 124 mm[Hg] e CW1 ([facility]) Diastolic blood pressure 78 mm[Hg] 78 mm[Hg] eCW1 ([facility]) Body weight 212 [lb_av] 212 [lb_av] eCW1 ([facility]) Body height 67.75 [in_i] 67.75 [in_i] eCW1 ([facility]) Body mass index (BMI) [Ratio] 32.47 kg/m2 32.47 kg/m2 eCW1 ([facility]) Heart rate 82 /min 82 /min eCW1 ([facility]) Respiratory rate 18 /min 18 /min eCW1 ([facility]) Body temperature 987.1 [degF] 987.1 [degF] eCW1 ([facility]) Systolic blood pressure 120 mm[Hg] 120 mm[Hg] e CW1 ([facility]) Diastolic blood pressure 70 mm[Hg] 70 mm[Hg] eCW1 ([facility]) Body weight 204 [lb_av] 204 [lb_av] eCW1 ([facility]) Body weight 92.53 kg 92.53 kg eCW1 ([facility]) Body height 67.75 [in_i] 67.75 [in_i] eCW1 ([facility]) Body mass index (BMI) [Ratio] 31.24 kg/m2 31.24 kg/m2 W1 ([facility]) Systolic blood pressure 100 mm[Hg] 100 mm[Hg] e CW1 ([facility]) Diastolic blood pressure 60 mm[Hg] 60 mm[Hg] eCW1 ([facility]) Diastolic blood pressure 80 mm[Hg] 80 mm[Hg] MEDENT ([facility], [facility]) Respiratory rate 16 /min 16 /min MED[facility] ( [facility] Care, [facility]) Oxygen saturation in Arterial blood by Pulse oximetry 99 % 99 % MEDENT ([facility], [facility]) Heart rate 78 /min 78 /min MEDENT ([facility], [facility]) Body weight 220.00 [lb_av] 220.00 [lb_av] MEDEN T ([facility], [facility]) Body temperature 98.7 [degF] 98.7 [degF] [facility] Body height 68 [in_i] 68 [in_i] [facility] ([facility]) 5'8" Body mass index (BMI) [Ratio] 33.4 kg/m2 33.4 k g/m2 [facility] Systolic blood pressure 124 mm[Hg] 124 mm[Hg] M EDENT ([facility]) Systolic blood pressure 104 mm[Hg] 104 mm[Hg] [facility] Diastolic blood pressure 74 mm[Hg] 74 mm[Hg] [facility] ([facility]) Heart rate 89 /min 89 /min [facility] ([facility]) Oxygen saturation in Arterial blood by Pulse oximetry 95 % 95 % [facility] ([facility]) Body height 68 [in_i] 68 [in_i] [facility] ([facility]) 5'8" Body weight 212.00 [lb_av] 212.00 [lb_av] MEDEN T ([facility]) Body mass index (BMI) [Ratio] 32.2 kg/m2 32.2 k g/m2 [facility] ([facility]) Ringle body weight 140 [lb_av] 140 [lb_av] MEDEN T ([facility]) Body weight 96.163 kg 96.163 kg [facility] ([facility]) Body surface area Derived from formula 2.09 m2 2.09 m2 [facility] ([facility]) Body weight 211.2 [lb_av] 211.2 [lb_av] eCW1 ([facility]) Body height 67.75 [in_i] 67.75 [in_i] eCW1 ([facility]) Body mass index (BMI) [Ratio] 32.35 kg/m2 32.35 kg/m2 eCW1 ([facility]) Heart rate 79 /min 79 /min eCW1 ([facility]) Respiratory rate 20 /min 20 /min eCW1 ([facility]) Body temperature 98.8 [degF] 98.8 [degF] eCW1 ( [facility]) Systolic blood pressure 120 mm[Hg] 120 mm[Hg] e CW1 ([facility]) Diastolic blood pressure 82 mm[Hg] 82 mm[Hg] eCW1 ([facility]) Body weight 211.2 [lb_av] 211.2 [lb_av] eCW1 ([facility]) Body height 67.75 [in_i] 67.75 [in_i] eCW1 ([facility]) Body mass index (BMI) [Ratio] 32.35 kg/m2 32.35 kg/m2 W1 ([facility]) Heart rate 79 /min 79 /min eCW1 ([facility]) Respiratory rate 20 /min 20 /min eCW1 ([facility]) Body temperature 98.8 [degF] 98.8 [degF] eCW1 ( [facility]) Systolic blood pressure 120 mm[Hg] 120 mm[Hg] e CW1 ([facility]) Diastolic blood pressure 82 mm[Hg] 82 mm[Hg] eCW1 ([facility]) Respiratory rate 20 /min 20 /min MEDENT ( [facility], [facility]) Oxygen saturation in Arterial blood by Pulse oximetry 97 % 97 % MEDENT ([facility], [facility]) Body temperature 98.0 [degF] 98.0 [degF] MEDENT ([facility], [facility]) Body weight 220.00 [lb_av] 220.00 [lb_av] MEDEN T ([facility], [facility]) Body height 68 [in_i] 68 [in_i] MEDENT ([facility]) 5'8" Systolic blood pressure 132 mm[Hg] 132 mm[Hg] M EDENT ([facility], [facility]) Diastolic blood pressure 80 mm[Hg] 80 mm[Hg] MEDENT ([facility], [facility]) Body mass index (BMI) [Ratio] 33.4 kg/m2 33.4 k g/m2 MEDENT ([facility], [facility]) Heart rate 66 /min 66 /min MEDENT ([facility], [facility]) Systolic blood pressure 135 mm[Hg] 135 mm[Hg] M EDENT ([facility], [facility]) Diastolic blood pressure 76 mm[Hg] 76 mm[Hg] MEDENT ([facility], [facility]) Heart rate 96 /min 96 /min MEDENT ([facility], [facility]) Respiratory rate 16 /min 16 /min MEDENT ( [facility], [facility]) Oxygen saturation in Arterial blood by Pulse oximetry 98 % 98 % MEDENT ([facility], [facility]) Body temperature 98.3 [degF] 98.3 [degF] MEDENT ([facility], [facility]) Body weight 220.00 [lb_av] 220.00 [lb_av] MEDEN T ([facility], [facility]) Body height 68 [in_i] 68 [in_i] MEDENT ([facility], [facility]) 5'8" Body mass index (BMI) [Ratio] 33.4 kg/m2 33.4 k g/m2 MEDENT ([facility], [facility]) Body weight 209 [lb_av] 209 [lb_av] eCW1 ([facility]) Body height 67.75 [in_i] 67.75 [in_i] eCW1 ([facility]) Body mass index (BMI) [Ratio] 32.01 kg/m2 32.01 kg/m2 eCW1 ([facility]) Heart rate 96 /min 96 /min eCW1 ([facility]) Respiratory rate 18 /min 18 /min eCW1 ([facility]) Body temperature 99.1 [degF] 99.1 [degF] eCW1 ( [facility]) Systolic blood pressure 130 mm[Hg] 130 mm[Hg] e CW1 ([facility]) Diastolic blood pressure 98 mm[Hg] 98 mm[Hg] eCW1 ([facility]) Body height 67.75 [in_i] 67.75 [in_i] eCW1 ([facility]) Body mass index (BMI) [Ratio] 32.01 kg/m2 32.01 kg/m2 eCW1 ([facility]) Heart rate 62 /min 62 /min eCW1 ([facility]) Respiratory rate 18 /min 18 /min eCW1 ([facility]) Body temperature 98.6 [degF] 98.6 [degF] eCW1 ( [facility]) Systolic blood pressure 150 mm[Hg] 150 mm[Hg] e CW1 ([facility]) Diastolic blood pressure 92 mm[Hg] 92 mm[Hg] eCW1 ([facility]) Body weight 209.0 [lb_av] 209.0 [lb_av] eCW1 ([facility]) Systolic blood pressure 130 mm[Hg] 130 mm[Hg] M EDENT ([facility], [facility]) Diastolic blood pressure 80 mm[Hg] 80 mm[Hg] MEDENT ([facility], [facility]) Heart rate 61 /min 61 /min MEDENT ([facility], [facility]) Respiratory rate 16 /min 16 /min MEDENT ( [facility], [facility]) Oxygen saturation in Arterial blood by Pulse oximetry 96 % 96 % MEDENT ([facility], [facility]) Body temperature 98.2 [degF] 98.2 [degF] MEDENT ([facility], [facility]) Body weight 220.00 [lb_av] 220.00 [lb_av] MEDEN T ([facility], [facility]) Body height 68 [in_i] 68 [in_i] MEDENT ([facility], [facility]) 5'8" Body mass index (BMI) [Ratio] 33.4 kg/m2 33.4 k g/m2 MEDENT ([facility], [facility]) Body weight 211.0 [lb_av] 211.0 [lb_av] eCW1 ([facility]) Body weight 211.0 [lb_av] 211.0 [lb_av] eCW1 ([facility]) Body height 67.75 [in_i] 67.75 [in_i] eCW1 ([facility]) Body mass index (BMI) [Ratio] 32.32 kg/m2 32.32 kg/m2 eCW1 ([facility]) Heart rate 80 /min 80 /min eCW1 ([facility]) Respiratory rate 20 /min 20 /min eCW1 ([facility]) Body temperature 97.2 [degF] 97.2 [degF] eCW1 ( [facility]) Systolic blood pressure 132 mm[Hg] 132 mm[Hg] e CW1 ([facility]) Diastolic blood pressure 80 mm[Hg] 80 mm[Hg] eCW1 ([facility]) Body height 67.75 [in_i] 67.75 [in_i] eCW1 ([facility]) Body mass index (BMI) [Ratio] 32.32 kg/m2 32.32 kg/m2 eCW1 ([facility]) Heart rate 80 /min 80 /min eCW1 ([facility]) Respiratory rate 20 /min 20 /min eCW1 ([facility]) Body temperature 97.2 [degF] 97.2 [degF] eCW1 ( [facility]) Systolic blood pressure 132 mm[Hg] 132 mm[Hg] e CW1 ([facility]) Diastolic blood pressure 80 mm[Hg] 80 mm[Hg] eCW1 ([facility]) Body temperature 96.7 [degF] 96.7 [degF] MEDENT ([facility]) ID Date Data Source [id number] 06/23/2020 07:31:41 AM EST [facility] Name Value Range Interpretation Code Description Data Source(s) TRANSFER FROM [facility] Patient Treatment Plan of Care Planned Activity [...] [BuT rans] 03/30/2021 12:00:00 AM EST eCW1 ([facility]) 168 HR Buprenorphine 0.01 MG/HR Transdermal Patch [BuT rans] 03/30/2021 12:00:00 AM EST eCW1 ([facility]) 168 HR Buprenorphine 0.01 MG/HR Transdermal Patch [BuT rans] 03/30/2021 12:00:00 AM EST eCW1 ([facility]) 168 HR Buprenorphine 0.01 MG/HR Transdermal Patch [BuT rans] 03/30/2021 12:00:00 AM EST eCW1 ([facility]) 168 HR Buprenorphine 0.01 MG/HR Transdermal Patch [BuT rans] 03/30/2021 12:00:00 AM EST eCW1 ([facility]) 168 HR Buprenorphine 0.01 MG/HR Transdermal Patch [BuT rans] 03/30/2021 12:00:00 AM EST eCW1 ([facility]) tramadol hydrochloride 50 MG Oral Tablet 03/27/2021 12:00:00 AM EST eCW1 ([facility]) tramadol hydrochloride 50 MG Oral Tablet 03/27/2021 12:00:00 AM EST eCW1 ([facility]) 24 HR tramadol hydrochloride 100 MG Extended Release O ral Tablet 03/25/2021 12:00:00 AM EST eCW1 ([facility]) 24 HR tramadol hydrochloride 100 MG Extended Release O ral Tablet 03/25/2021 12:00:00 AM EST eCW1 ([facility]) [place] 75 MCG 03/24/2021 12:00:00 AM EST [...] eCW1 ([facility]) PredniSONE ([place]) 10mg 06/23/2020 12:00:00 AM EST [facility] Sodium Chloride 0.111 MEQ/ML Nasal [place] [[place] brand of sodium chloride] 06/20/2020 12:00:00 AM EST eCW1 ([facility]) Sodium Chloride 0.111 MEQ/ML Nasal [place] [[place] brand of sodium chloride] 06/20/2020 12:00:00 AM EST eCW1 ([facility]) Sodium Chloride 0.111 MEQ/ML Nasal [place] [[place] brand of sodium chloride] 06/20/2020 12:00:00 AM EST eCW1 ([facility]) duloxetine 30 MG Delayed Release Oral Capsule [...] [Bu Trans] 02/28/2020 12:00:00 AM EDT eCW1 ([facility]) 168 HR Buprenorphine 0.005 MG/HR Transdermal Patch [Bu Trans] 02/28/2020 12:00:00 AM EDT eCW1 ([facility])
[2021-04-18] MEDS ORDERED: cefTRIAXone SOD 1 GM in D5W MINI-BAG PLUS 50 ML IV ONE (17:35)
[2021-04-18] MEDS ORDERED: traMADol 50 MG TAB PO ONE (18:15)
[2021-04-18] MEDS ORDERED: oxyCODONE 5MG TAB PO ONE (18:35)
[2021-04-18 18:49] VITALS: BP 122/84
== END 2021-04-18 19:05 | disposition home or self-care (01) ==
LOC: M ED 13:21
DX: J18.9 Pneumonia, unspecified organism (principal); J44.9 Chronic obstructive pulmonary disease, unspecified; I11.0 Hypertensive heart disease with heart failure; I50.9 Heart failure, unspecified; E07.9 Disorder of thyroid, unspecified; F33.9 Major depressive disorder, recurrent, unspecified; F43.10 Post-traumatic stress disorder, unspecified; G47.30 Sleep apnea, unspecified; K21.9 Gastro-esophageal reflux disease without esophagitis; Z99.89 Dependence on other enabling machines and devices; Z88.1 Allergy status to other antibiotic agents; Z88.2 Allergy status to sulfonamides; Z88.8 Allergy status to other drugs, medicaments and biological substances; Z79.899 Other long term (current) drug therapy; Z79.890 Hormone replacement therapy; Z79.01 Long term (current) use of anticoagulants; Z87.891 Personal history of nicotine dependence

== ENCOUNTER 2021-04-20 14:24 | Inpatient (IN) | payer MEDICARE ==
[~2021-04-20] VITALS: Ht 172.7 cm; Wt 96.0 kg
[~2021-04-20 14:24] MED LIST changes: +LEVO750T14 PO
--- OUTSIDE RECORDS SUMMARY | 2021-04-20 14:39 | CCD ---
Author Author [facility] Organization [facility] Address Unknown Phone Unavailable Care Team Providers Care Cephalometric Tracer Name Role Phone Shepard, Amanda VICE PRESIDENT FOR INSTRUCTION Unavailable Unavailable Shepard, Amanda VICE PRESIDENT FOR INSTRUCTION Unavailable Unavailable Shepard, Amanda VICE PRESIDENT FOR INSTRUCTION Unavailable Unavailable Shepard, Amanda VICE PRESIDENT FOR INSTRUCTION Unavailable Unavailable Shepard, Amanda VICE PRESIDENT FOR INSTRUCTION Unavailable Unavailable Shepard, Amanda VICE PRESIDENT FOR INSTRUCTION Unavailable Unavailable Shepard, Amanda VICE PRESIDENT FOR INSTRUCTION Unavailable Unavailable Shepard, Amanda VICE PRESIDENT FOR INSTRUCTION Unavailable Unavailable Shepard, Amanda VICE PRESIDENT FOR INSTRUCTION Unavailable Unavailable Shepard, Amanda VICE PRESIDENT FOR INSTRUCTION Unavailable Unavailable Shepard, Amanda VICE PRESIDENT FOR INSTRUCTION Unavailable Unavailable Shepard, Amanda VICE PRESIDENT FOR INSTRUCTION Unavailable Unavailable Shepard, Amanda VICE PRESIDENT FOR INSTRUCTION Unavailable Unavailable SYSTEM IN, NOT IN PROVIDER [...] e FishLigia, PA-C Unavailable Unavailabl e Fish, [facility], PA-C Unavailable Unavailabl e Fish, [facility], PA-C Unavailable Unavailabl e Fish, [facility], PA-C Unavailable Unavailabl e Fish, [facility], PA-C Unavailable Unavailabl e Fish, [facility], PA-C Unavailable Unavailabl e Fish, [facility], PA-C Unavailable Unavailabl e Fish, [facility], PA-C Unavailable Unavailabl e Fish, [facility], PA-C Unavailable Unavailabl e Fish, [facility], PA-C Unavailable Unavailabl e Fish, [facility], PA-C Unavailable Unavailabl e Fish, [facility], PA-C Unavailable Unavailabl e Fish, [facility], PA-C Unavailable Unavailabl e Fish, [facility], PA-C Unavailable Unavailabl e Fish, [facility], PA-C Unavailable Unavailabl e Fish, [facility], PA-C Unavailable Unavailabl e Fish, [facility], PA-C Unavailable Unavailabl e Fish, [facility], PA-C Unavailable Unavailabl e Fish, [facility], PA-C Unavailable Unavailabl e Fish, [facility], PA-C Unavailable Unavailabl e Fish, [facility], PA-C Unavailable Unavailabl e Fish, [facility], PA-C Unavailable Unavailabl e Fish, [facility], PA-C Unavailable Unavailabl e Fish, [facility], PA-C Unavailable Unavailabl e Fish, [facility], PA-C Unavailable Unavailabl e Fish, [facility], PA-C Unavailable Unavailabl e Fish, [facility], PA-C Unavailable Unavailabl e Julieta Vasquez [...] Julieta MD Unavailable Unavailable CALEB, RADHA HAROON PASSENGER CAR INSPECTOR-C Unavailable Unavailable CALEB, RADHA HAROON PASSENGER CAR INSPECTOR-C Unavailable Unavailable CALEB, RADHA HAROON PASSENGER CAR INSPECTOR-C Unavailable Unavailable CALEB, RADHA HAROON PASSENGER CAR INSPECTOR-C Unavailable Unavailable CALEB, RADHA HAROON PASSENGER CAR INSPECTOR-C Unavailable Unavailable CALEB, RADHA HAROON PASSENGER CAR INSPECTOR-C Unavailable Unavailable CALEB, RADHA HAROON PASSENGER CAR INSPECTOR-C Unavailable Unavailable CALEB, RADHA HAROON PASSENGER CAR INSPECTOR-C Unavailable Unavailable CALEB, RADHA HAROON PASSENGER CAR INSPECTOR-C Unavailable Unavailable CALEB, RADHA HAROON PASSENGER CAR INSPECTOR-C Unavailable Unavailable CALEB, RADHA HAROON PASSENGER CAR INSPECTOR-C Unavailable Unavailable CALEB, RADHA HAROON PASSENGER CAR INSPECTOR-C Unavailable Unavailable CALEB, RADHA HAROON PASSENGER CAR INSPECTOR-C Unavailable Unavailable CALEB, RADHA HAROON PASSENGER CAR INSPECTOR-C Unavailable Unavailable CALEB, RADHA HAROON PASSENGER CAR INSPECTOR-C Unavailable Unavailable CALEB, RADHA HAROON PASSENGER CAR INSPECTOR-C Unavailable Unavailable CALEB, RADHA HAROON PASSENGER CAR INSPECTOR-C Unavailable Unavailable HAROON, NITO PA Unavailable Unavailable [...] is protected by Article 27-F of the [facility] Public Health law. If you continue you may have access to information: Regarding HIV / AIDS; Provided by facilities licensed or operated by the [facility] Office of Mental Health; or Provided by the [facility] Office for People With Developmental Disabilities. If such information is present, then the following [facility] mandated warning applies: This information has been [...] law may result in a fine or detention sentence or both. A general authorization for [...] Date Indications Data Source(s ) Unknown [address] [facility] [address] 04/01/2021 12:00:00 AM EST eCW1 ([facility]) Unknown [address] [facility] [address] 04/01/2021 12:00:00 AM EST eCW1 ([facility]) Unknown [address] [facility] [address] 04/01/2021 12:00:00 AM EST eCW1 ([facility]) Unknown [address] [facility] [address] 04/01/2021 12:00:00 AM EST eCW1 ([facility]) [place] [address] [facility] [place] [address] 03/30/2021 12:00:00 AM EST eCW1 ([facility]) Unknown [address] [facility] [address] 03/30/2021 12:00:00 AM EST eCW1 ([facility]) Unknown [address] [facility] [address] 03/27/2021 12:00:00 AM EST eCW1 ([facility]) Unknown [address] [facility] [address] 03/26/2021 12:00:00 AM EST eCW1 ([facility]) Unknown [address] [facility] [address] 03/25/2021 12:00:00 AM EST eCW1 ([facility]) [place] [address] [facility] [place] [address] 03/25/2021 12:00:00 AM EST eCW1 ([facility]) [place] [address] [facility] [place] [address] 03/19/2021 12:00:00 AM EDT eCW1 ([facility]) Unknown [address] [facility] [address] 03/19/2021 12:00:00 AM EDT [facility] [address] [facility] [address] 03/17/2021 12:00:00 AM EDT eCW1 ([facility]) Outpatient Attender: HAROON Ramírez/Klaus/[place]/Patricia mcnamara 03/13/2021 02:15:00 PM EDT MEDENT ([facility], ) Office Visit Attender: Julieta Vasquez MD Main office - [place] 03/05/2021 12:45:00 PM EDT MEDENT ([facility], ) Unknown [address] [facility] [address] 02/20/2021 12:00:00 AM EDT eCW1 ([facility]) Unknown [address] [facility] [address] 02/20/2021 12:00:00 AM EDT eCW1 ([facility]) Office Visit, Est Pt., Level 4 [address] [place] [address] 02/19/2021 12:00:00 AM EDT eCW1 ([facility]) [place] [address] [facility] [place] [address] 02/19/2021 12:00:00 AM EDT eCW1 ([facility]) Unknown [address] [facility] [place] [address] 02/18/2021 12:00:00 AM EDT eCW1 ([facility]) Outpatient [address] [facility] [place] [address] 02/06/2021 12:00:00 AM EDT eCW1 ([facility]) Unknown [address] [facility] [place] [address] 02/05/2021 12:00:00 AM EDT eCW1 ([facility]) Unknown [address] [facility] [address] 12/24/2020 12:00:00 AM EDT eCW1 ([facility]) Office Visit Attender: Julieta Vasquez MD Main office - [place] 12/18/2020 03:00:00 PM EDT MEDENT ([facility]) Unknown [address] [facility] [address] 12/11/2020 12:00:00 AM EDT eCW1 ([facility]) Unknown [address] [facility] [address] 12/11/2020 12:00:00 AM EDT eCW1 ([facility]) Unknown [address] [facility] [address] 11/27/2020 12:00:00 AM EDT eCW1 ([facility]) Unknown [address] [facility] [address] 11/24/2020 12:00:00 AM EDT eCW1 ([facility]) Unknown [address] [facility] [address] 11/20/2020 12:00:00 AM EDT eCW1 ([facility]) Outpatient Attender: aMrci BARNEY PA-C Physical Therapy 11/18/2020 01:30:00 PM EDT MEDENT ([facility]) Unknown [address] [facility] [address] 11/13/2020 12:00:00 AM EDT eCW1 ([facility]) Outpatient [address] [facility] [address] 11/11/2020 12:00:00 AM EDT eCW1 ([facility]) Unknown [address] [facility] [address] 11/10/2020 12:00:00 AM EDT eCW1 ([facility]) Unknown [address] [facility] [address] 11/10/2020 12:00:00 AM EDT [facility] [address] [facility] [address] 11/06/2020 12:00:00 AM EDT eCW1 ([facility]) Unknown [address] [facility] [address] 11/05/2020 12:00:00 AM EDT eCW1 [facility]) Unknown [address] [facility] [address] 10/28/2020 12:00:00 AM EDT eCW1 ([facility]) Office Visit, Est Pt., Level 4 [address] [place] [address] 10/28/2020 12:00:00 AM EDT eCW1 ([facility]) Unknown [address] [facility] [address] 10/27/2020 12:00:00 AM EDT eCW1 ([facility]) Outpatient Attender: Marci BARNEY PA-C Physical Therapy 10/23/2020 08:45:00 AM EDT MEDENT ([facility]) Outpatient Attender: HAROON MARCANO-C Darrell/Klaus/[place]/Patricia mcnamara 10/22/2020 09:45:00 AM EDT MEDENT ([facility]) Unknown [address] [facility] [address] 10/16/2020 12:00:00 AM EDT eCW1 [facility] Unknown [address] [facility] [address] 10/14/2020 12:00:00 AM EDT eCW1 ([facility]) Unknown [address] [facility] [address] 10/01/2020 12:00:00 AM EDT eCW1 ([facility]) Unknown [address] [facility] [address] 09/25/2020 12:00:00 AM EDT eCW1 ([facility]) Unknown [address] [facility] [place] [address] 08/22/2020 12:00:00 AM EDT eCW1 ([facility]) Outpatient [address] [facility] [address] 08/19/2020 12:00:00 AM EDT eCW1 ([facility]) Unknown [address] [facility] [place] [address] 08/15/2020 12:00:00 AM EDT eCW1 ([facility]) Office Visit, Est Pt., Level 3 PC [address] [place] [address] 08/14/2020 12:00:00 AM EDT eCW1 ([facility]) Unknown [address] [facility] [place] [address] 08/11/2020 12:00:00 AM EDT eCW1 ([facility]) Unknown [address] [facility] [address] 08/11/2020 12:00:00 AM EDT eCW1 ([facility]) Outpatient [address] [facility] [place] [address] 08/08/2020 12:00:00 AM EDT eCW1 ([facility]) Unknown [address] [facility] [place] [address] 08/08/2020 12:00:00 AM EDT eCW1 ([facility]) Unknown [address] [facility] [place] [address] 08/07/2020 12:00:00 AM EDT eCW1 ([facility]) Unknown [address] [facility] [address] 07/31/2020 12:00:00 AM EDT eCW1 ([facility]) Unknown [address] [facility] [address] 07/28/2020 12:00:00 AM EDT eCW1 ([facility] [place]) Outpatient Attender: Julieta Vasquez MD Main office - [place] 07/18/2020 10:30:00 AM EST MEDENT ([facility]) Unknown [address] [facility] [place] [address] 07/15/2020 12:00:00 AM EST eCW1 ([facility]) Unknown [address] [facility] [place] [address] 07/15/2020 12:00:00 AM EST eCW1 ([facility]) Outpatient Attender: Amanda tracy 07/14/2020 10:15:00 AM EST MEDENT ([facility]) Outpatient Attender: HAROON MARCANO-C Darrell/Klaus/[place]/Patricia mcnamara 07/07/2020 12:15:00 PM EST MEDENT ([facility] Unknown [address] [facility] [address] 07/07/2020 12:00:00 AM EST eCW1 ([facility]) Unknown [address] [facility] [address] 07/04/2020 12:00:00 AM EST eCW1 ([facility]) (TCM) Transition of Care Visit [address] [place] [address] 06/30/2020 12:00:00 AM EST eCW1 [facility] Unknown [address] [facility] [address] 06/25/2020 12:00:00 AM EST eCW1 ([facility] [place]) Unknown [address] [facility] [address] 06/24/2020 12:00:00 AM EST eCW1 [facility] [place]) Outpatient Referrer: PROVIDER SYSTEM IN 06/22/2020 0 3:26:00 PM EST Rt facial droop, RLE weakness [facility] Rt facial droop, RLE weakness Unknown [address] [facility] [place] [address] 06/20/2020 12:00:00 AM EST eCW1 ([facility]) Unknown [address] [facility] [place] [address] 06/20/2020 12:00:00 AM EST eCW1 ([facility]) Unknown [address] [facility] [place] [address] 06/20/2020 12:00:00 AM EST eCW1 ([facility]) Outpatient Attender: Amanda tracy 06/17/2020 10:15:00 AM EST MEDENT ([facility]) [place] [address] [facility] [place] [address] 06/13/2020 12:00:00 AM EST eCW1 ([facility]) Unknown [address] [facility] [place] [address] 06/05/2020 12:00:00 AM EST eCW1 ([facility]) Outpatient Attender: Amanda tracy 06/04/2020 07:45:00 AM EST MEDENT ([facility]) Unknown [address] [facility] [place] [address] 06/02/2020 12:00:00 AM EST eCW1 ([facility]) Unknown [address] [facility] [place] [address] 05/26/2020 12:00:00 AM EST eCW1 ([facility]) [place] [address] [facility] [place] [address] 05/26/2020 12:00:00 AM EST eCW1 ([facility]) Unknown [address] [facility] [place] [address] 05/19/2020 12:00:00 AM EST eCW1 ([facility]) Outpatient [address] [facility] [place] [address] 05/19/2020 12:00:00 AM EST eCW1 ([facility]) Unknown [address] [facility] [place] [address] 05/19/2020 12:00:00 AM EST eCW1 ([facility]) Unknown [address] [facility] [place] [address] 05/13/2020 12:00:00 AM EST eCW1 ([facility]) Unknown [address] [facility] [place] [address] 05/12/2020 12:00:00 AM EST eCW1 ([facility]) Unknown [address] [facility] [place] [address] 05/02/2020 12:00:00 AM EST eCW1 ([facility]) Unknown [address] [facility] [place] [address] 05/01/2020 12:00:00 AM EST eCW1 ([facility]) Unknown [address] [facility] [place] [address] 05/01/2020 12:00:00 AM EST eCW1 ([facility]) Outpatient [address] [facility] [place] [address] 04/21/2020 12:00:00 AM EST eCW1 ([facility]) Outpatient Attender: NITO mancuso 04/17/2020 09:30:00 AM EST MEDENT ([facility]) Unknown [address] [facility] [place] [address] 04/16/2020 12:00:00 AM EST eCW1 ([facility]) Unknown [address] [facility] [place] [address] 04/15/2020 12:00:00 AM EST eCW1 ([facility]) Unknown [address] [facility] [place] [address] 04/14/2020 12:00:00 AM EST eCW1 ([facility]) Unknown [address] [facility] [place] [address] 04/03/2020 12:00:00 AM EST eCW1 ([facility]) Unknown [address] [facility] [place] [address] 04/01/2020 12:00:00 AM EST eCW1 ([facility]) Unknown [address] [facility] [place] [address] 03/26/2020 12:00:00 AM EST eCW1 ([facility]) Unknown [address] [facility] [place] [address] 03/24/2020 12:00:00 AM EST eCW1 ([facility]) (TCM) Transition of Care Visit [address] [place] [address] 03/17/2020 12:00:00 AM EST eCW1 ([facility]) Unknown [address] [facility] [address] 03/10/2020 12:00:00 AM EDT eCW1 ([facility]) Unknown [address] [facility] [address] 03/06/2020 12:00:00 AM EDT eCW1 ([facility]) Unknown [address] [facility] [place] [address] 03/06/2020 12:00:00 AM EDT eCW1 ([facility]) Outpatient Attender: TIERNEY MURO MD Physical Therapy 08:00:00 AM EDT MEDENT ([facility]) Unknown [address] [facility] [address] 02/28/2020 12:00:00 AM EDT eCW1 ([facility]) Immunizations Vaccine Date Status Description Data Source(s) COVID-19 VACCINE Moderna 03/26/2021 12:00:00 AM EST completed [facility] Vaccine Series Complete: YESThis Data wa s Submitted to [facility] Via [employer]. COVID-19 VACCINE Moderna 02/23/2021 12:00:00 AM EDT completed [facility] Vaccine Series Complete: NOThis Data was Submitted to [facility] [employer]. Medications Medication Brand Name Start Date Product Form Dose Route Admi nistrative Instructions Pharmacy Instructions Status Indications Reaction Description Data Source(s) tramadol hydrochloride 50 MG Oral Tablet traMADol HCl 50 MG traMADol HCl 50 MG 04/01/2021 12:00:00 AM EST 1.0 {tablet_as_needed} active traMADol HCl 50 MG [facility] tramadol hydrochloride 50 MG Oral Tablet traMADol HCl 50 MG traMADol HCl 50 MG 04/01/2021 12:00:00 AM EST 1.0 {tablet_as_needed} ac tive [facility]CW1 ([facility]) 50 mg 04/01/2021 12:00:00 AM EST tablet 30 TAKE ONE TABLET BY MOUTH ONCE DAILY NEEDED MAXIMUM DAILY DOSE = 1 TABLET TAKE ONE TABLET BY MOUTH ONCE DAILY NEEDED MAXIMUM DAILY DOSE = 1 TABLET SOLD: 04/02/2021 [employer] tramadol hydrochloride 50 MG Oral Tablet traMADol HCl 50 MG traMADol HCl 50 MG 04/01/2021 12:00:00 AM EST 1.0 {tablet_as_needed} active traMADol HCl 50 MG eCW1 [facility]) tramadol hydrochloride 50 MG Oral Tablet traMADol HCl 50 MG traMADol HCl 50 MG 04/01/2021 12:00:00 AM EST 1.0 {tablet_as_needed} active traMADol HCl 50 MG eCW1 [facility]) 10 mg 03/30/2021 12:00:00 AM EST [...] EST 1.0 {patch_to_skin} active eCW1 ([facility]) 168 HR Buprenorphine 0.01 MG/HR Transdermal Patch [BuT rans] Butrans 10 MCG/HR Butrans 10 MCG/HR 03/30/2021 12:00:00 AM EST 1.0 {patch_to_skin} active Butrans 10 MCG/HR eCW1 ([facility]) 168 HR Buprenorphine 0.01 MG/HR Transdermal Patch [BuT rans] Butrans 10 MCG/HR Butrans 10 MCG/HR 03/30/2021 12:00:00 AM EST 1.0 {patch_to_skin} active eCW1 ([facility]) 168 HR Buprenorphine 0.01 MG/HR Transdermal Patch [BuT rans] Butrans 10 MCG/HR Butrans 10 MCG/HR 03/30/2021 12:00:00 AM EST 1.0 {patch_to_skin} active Butrans 10 MCG/HR eCW1 ([facility]) 168 HR Buprenorphine 0.01 MG/HR Transdermal Patch [BuT rans] Butrans 10 MCG/HR Butrans 10 MCG/HR 03/30/2021 12:00:00 AM EST 1.0 {patch_to_skin} active eCW1 ([facility]) 168 HR Buprenorphine 0.01 MG/HR Transdermal Patch [BuT rans] Butrans 10 MCG/HR Butrans 10 MCG/HR 03/30/2021 12:00:00 AM EST 1.0 {patch_to_skin} active Butrans 10 MCG/HR eCW1 ([facility]) montelukast 10 MG Oral Tablet MONTELUKAST SODIUM 03/28/2021 12:0 0:00 AM EST tablet 30 TAKE ONE TABLET BY MOUTH AT BEDT BEV TAKE ONE TABLET BY MOUTH AT BEDTIME SOLD: 03/29/2021 [facility] tramadol hydrochloride 50 MG Oral Tablet traMADol HCl 50 MG traMADol HCl 50 MG 03/27/2021 12:00:00 AM EST 1.0 {tablet_as_needed} active traMADol HCl 50 MG [facility]CW[facility] tramadol hydrochloride 50 MG Oral Tablet traMADol HCl 50 MG traMADol HCl 50 MG 03/27/2021 12:00:00 AM EST 1.0 {tablet_as_needed} active traMADol HCl 50 MG eCW1 ([facility]) 100 mcg/0.5 mL 03/26/2021 12:00:00 AM EST suspension 0 INJECT DIRECTED PER STANDING ORDER INJECT DIRECTED PER STANDING ORDER SOLD: 03/26/2021 [facility] 24 HR tramadol hydrochloride 100 MG Exte nded Release Oral Tablet traMADol HCl ER 100 MG traMADol HCl ER 100 MG 03/25/2021 12:00:00 AM EST active traMADol HCl ER 100 MG eCW1 [facility]) 24 HR tramadol hydrochloride 100 MG Exte nded Release Oral Tablet traMADol HCl ER 100 MG traMADol HCl ER 100 MG 03/25/2021 12:00:00 AM EST active traMADol HCl ER 100 MG eCW1 ([facility]) [place] 75 MCG [place] 75 MCG 03/24/2021 12:00:00 AM EST active eCW1 ([facility]) [place] 75 MCG [place] 75 MCG 03/24/2021 12:00:00 AM EST active eCW1 ([facility]) [place] 75 MCG [place] 75 MCG 03/24/2021 12:00:00 AM EST active [place] 75 MCG eCW1 ([facility]) [place] 75 MCG [place] 75 MCG 03/24/2021 12:00:00 AM EST active [place] 75 MCG eCW1 ([facility]) [place] 75 MCG [place] 75 MCG 03/24/2021 12:00:00 AM EST active [place] 75 MCG eCW1 ([facility]) [place] 75 MCG [place] 75 MCG 03/24/2021 12:00:00 AM EST active [place] 75 MCG eCW1 ([facility]) [place] 75 MCG [place] 75 MCG 03/24/2021 12:00:00 AM EST active [place] 75 MCG eCW1 ([facility]) [place] 75 MCG [place] 75 MCG 03/24/2021 12:00:00 AM EST active [place] 75 MCG eCW1 ([facility]) [place] 75 MCG [place] 75 MCG 03/24/2021 12:00:00 AM EST active eCW1 ([facility]) [place] 75 MCG [place] 75 MCG 03/24/2021 12:00:00 AM EST active [place] 75 MCG eCW1 ([facility]) 4 mg 03/20/2021 12:00:00 AM EDT [...] Medications 03/05/2021 12:00:00 AM EDT active MEDENT ([facility]) 10 mg 02/24/2021 [...] {tablet_as_needed} active traMADol HCl 50 MG eCW1 [facility]) tramadol hydrochloride 50 MG Oral Tablet traMADol HCl 50 MG traMADol HCl 50 MG 02/20/2021 12:00:00 AM EDT 1.0 {tablet_as_needed} active traMADol HCl 50 MG eCW1 ([facility]) tramadol hydrochloride 50 MG Oral Tablet traMADol HCl 50 MG traMADol HCl 50 MG 02/20/2021 12:00:00 AM EDT 1.0 {tablet_as_needed} ac tive eCW1 ([facility]) tramadol hydrochloride 50 MG Oral Tablet traMADol HCl 50 MG traMADol HCl 50 MG 02/20/2021 12:00:00 AM EDT 1.0 {tablet_as_needed} active traMADol HCl 50 MG [facility] tramadol hydrochloride 50 MG Oral Tablet traMADol HCl 50 MG traMADol HCl 50 MG 02/20/2021 12:00:00 AM EDT 1.0 {tablet_as_needed} active traMADol HCl 50 MG [facility]CW1 [facility]) tramadol hydrochloride 50 MG Oral Tablet traMADol HCl 50 MG traMADol HCl 50 MG 02/20/2021 12:00:00 AM EDT 1.0 {tablet_as_needed} active traMADol HCl 50 MG eCW1 [facility]) Liraglutide 18 MG/3ML UNK 02/19/2021 12:00:00 AM EDT active [facility]CW1 [facility]) Liraglutide 18 MG/3ML UNK 02/19/2021 12:00:00 AM EDT active Liraglutide 18 MG/3ML eCW1 ([facility]) Liraglutide 18 MG/3ML UNK 02/19/2021 12:00:00 AM EDT active Liraglutide 18 MG/3ML eCW1 ([facility]) Liraglutide 18 MG/3ML UNK 02/19/2021 12:00:00 AM EDT active Liraglutide 18 MG/3ML eCW1 ([facility]) Liraglutide 18 MG/3ML UNK 02/19/2021 12:00:00 AM EDT active Liraglutide 18 MG/3ML eCW1 ([facility]) Liraglutide 18 MG/3ML UNK 02/19/2021 12:00:00 AM EDT active Liraglutide 18 MG/3ML eCW1 ([facility]) Liraglutide 18 MG/3ML UNK 02/19/2021 12:00:00 AM EDT active Liraglutide 18 MG/3ML eCW1 ([facility]) Liraglutide 18 MG/3ML UNK 02/19/2021 12:00:00 AM EDT active Liraglutide 18 MG/3ML eCW1 ([facility]) Bel[place]uca 75 MCG Belbuca 75 MCG 02/19/2021 12:00:00 AM EDT active [place] 75 MCG eCW1 ([facility]) Liraglutide 18 MG/3ML UNK 02/19/2021 12:00:00 AM EDT active Liraglutide 18 MG/3ML eCW1 ([facility]) Liraglutide 18 MG/3ML UNK 02/19/2021 12:00:00 AM EDT active eCW1 [facility]) Liraglutide 18 MG/3ML UNK 02/19/2021 12:00:00 AM EDT active Liraglutide 18 MG/3ML eCW1 ([facility]) Liraglutide 18 MG/3ML UNK 02/19/2021 12:00:00 AM EDT active Liraglutide 18 MG/3ML eCW1 ([facility]) Liraglutide 18 MG/3ML UNK 02/19/2021 12:00:00 AM EDT active eCW1 [facility]) Liraglutide 18 MG/3ML UNK 02/19/2021 12:00:00 AM EDT active eCW1 [facility]) Liraglutide 18 MG/3ML UNK 02/19/2021 12:00:00 AM EDT active Liraglutide 18 MG/3ML eCW1 ([facility]) Liraglutide 18 MG/3ML UNK 02/19/2021 12:00:00 AM EDT active Liraglutide 18 MG/3ML eCW1 ([facility]) Liraglutide 18 MG/3ML UNK 02/19/2021 12:00:00 AM EDT active Liraglutide 18 MG/3ML eCW1 [facility]) 75 mg 02/18/2021 12:00:00 AM EDT [...] Medications 12/18/2020 12:00:00 AM EDT completed MEDENT ([facility]) Divalproex Sodium 250 MG Delayed Release Oral Tablet Divalpr oex Sodium 12/18/2020 12:00:00 AM EDT ORAL completed [facility] ([facility]) Acetaminophen 325 MG [...] acti ve Nortriptyline HCl 25 MG eCW1 ([facility]) Nortriptyline 25 MG Oral Capsule Nortriptyline HCl 25 MG Nortriptyline HCl 25 MG 11/11/2020 12:00:00 AM EDT 1.0 {capsule} acti ve Nortriptyline HCl 25 MG eCW1 ([facility]) Nortriptyline 25 MG Oral Capsule Nortriptyline HCl 25 MG Nortriptyline HCl 25 MG 11/11/2020 12:00:00 AM EDT 1.0 {capsule} susp ended Nortriptyline HCl 25 MG eCW1 ([facility]) Nortriptyline 25 MG Oral Capsule Nortriptyline HCl 25 MG Nortriptyline HCl 25 MG 11/11/2020 12:00:00 AM EDT 1.0 {capsule} acti ve Nortriptyline HCl 25 MG eCW1 ([facility]) 25 mg 11/11/2020 12:00:00 AM EDT capsule 30 TAKE ONE CAPSULE BY MOUTH EVERY DAY IN THE MORNING TAKE ONE CAPSULE BY MOUTH EVERY DAY IN THE MORNING [facility] Nortriptyline 25 MG Oral Capsule Nortriptyline HCl 25 MG Nortriptyline HCl 25 MG 11/11/2020 12:00:00 AM EDT 1.0 {capsule} acti ve Nortriptyline HCl 25 MG eCW1 ([facility]) Nortriptyline 25 MG Oral Capsule Nortriptyline HCl 25 MG Nortriptyline HCl 25 MG 11/11/2020 12:00:00 AM EDT 1.0 {capsule} susp ended Nortriptyline HCl 25 MG eCW1 ([facility]) Nortriptyline 25 MG Oral Capsule Nortriptyline HCl 25 MG Nortriptyline HCl 25 MG 11/11/2020 12:00:00 AM EDT 1.0 {capsule} acti ve Nortriptyline HCl 25 MG eCW1 ([facility]) Nortriptyline 25 MG Oral Capsule Nortriptyline HCl 25 MG Nortriptyline HCl 25 MG 11/11/2020 12:00:00 AM EDT 1.0 {capsule} acti ve Nortriptyline HCl 25 MG eCW1 ([facility]) Nortriptyline 25 MG Oral Capsule Nortriptyline HCl 25 MG Nortriptyline HCl 25 MG 11/11/2020 12:00:00 AM EDT 1.0 {capsule} acti ve Nortriptyline HCl 25 MG eCW1 ([facility]) Nortriptyline 25 MG Oral Capsule Nortriptyline HCl 25 MG Nortriptyline HCl 25 MG 11/11/2020 12:00:00 AM EDT 1.0 {capsule} acti ve Nortriptyline HCl 25 MG eCW1 ([facility]) Nortriptyline 25 MG Oral Capsule Nortriptyline HCl 25 MG Nortriptyline HCl 25 MG 11/11/2020 12:00:00 AM EDT 1.0 {capsule} acti ve Nortriptyline HCl 25 MG eCW1 ([facility]) Nortriptyline 25 MG Oral Capsule Nortriptyline HCl 25 MG Nortriptyline HCl 25 MG 11/11/2020 12:00:00 AM EDT 1.0 {capsule} acti ve Nortriptyline HCl 25 MG eCW1 ([facility]) Chlorthalidone 25 MG Oral Tablet Chlorthalidone 25 MG 2020 12:00:00 AM EDT 1.0 {tablet_in_the_morning_with_food} active Chlorthalidone 25 MG eCW1 ([facility]) Chlorthalidone 25 MG Oral Tablet CHLORTHALIDONE 11/06/2020 12:0 0:00 AM EDT tablet 90 TAKE ONE TABLET BY MOUTH EVERY D AY IN THE MORNING WITH FOOD TAKE ONE TABLET BY MOUTH EVERY DAY IN THE MORNING WITH FOOD SOLD: 03/29/2021 [facility] Chlorthalidone 25 MG Oral Tablet Chlorthalidone 25 MG 2020 12:00:00 AM EDT 1.0 {tablet_in_the_morning_with_food} active Chlorthalidone 25 MG eCW1 ([facility]) Chlorthalidone 25 MG Oral Tablet Chlorthalidone 25 MG 2020 12:00:00 AM EDT 1.0 {tablet_in_the_morning_with_food} active Chlorthalidone 25 MG eCW1 ([facility]) Chlorthalidone 25 MG Oral Tablet Chlorthalidone 25 MG 2020 12:00:00 AM EDT 1.0 {tablet_in_the_morning_with_food} active Chlorthalidone 25 MG eCW1 ([facility]) Chlorthalidone 25 MG Oral Tablet Chlorthalidone 25 MG 2020 12:00:00 AM EDT 1.0 {tablet_in_the_morning_with_food} active Chlorthalidone 25 MG eCW1 ([facility]) Chlorthalidone 25 MG Oral Tablet Chlorthalidone 25 MG 2020 12:00:00 AM EDT 1.0 {tablet_in_the_morning_with_food} active Chlorthalidone 25 MG eCW1 ([facility]) Chlorthalidone 25 MG Oral Tablet Chlorthalidone 25 MG 2020 12:00:00 AM EDT 1.0 {tablet_in_the_morning_with_food} active Chlorthalidone 25 MG eCW1 ([facility]) Chlorthalidone 25 MG Oral Tablet Chlorthalidone 25 MG 2020 12:00:00 AM EDT 1.0 {tablet_in_the_morning_with_food} active Chlorthalidone 25 MG eCW1 ([facility]) Chlorthalidone 25 MG Oral Tablet Chlorthalidone 25 MG 2020 12:00:00 AM EDT 1.0 {tablet_in_the_morning_with_food} active Chlorthalidone 25 MG eCW1 ([facility]) Chlorthalidone 25 MG Oral Tablet Chlorthalidone 25 MG 2020 12:00:00 AM EDT 1.0 {tablet_in_the_morning_with_food} active Chlorthalidone 25 MG eCW1 ([facility]) Chlorthalidone 25 MG Oral Tablet Chlorthalidone 25 MG 2020 12:00:00 AM EDT 1.0 {tablet_in_the_morning_with_food} active Chlorthalidone 25 MG eCW1 ([facility]) Chlorthalidone 25 MG Oral Tablet Chlorthalidone 25 MG 2020 12:00:00 AM EDT 1.0 {tablet_in_the_morning_with_food} active Chlorthalidone 25 MG eCW1 ([facility]) Chlorthalidone 25 MG Oral Tablet Chlorthalidone 25 MG 2020 12:00:00 AM EDT 1.0 {tablet_in_the_morning_with_food} active Chlorthalidone 25 MG eCW1 ([facility]) 25 mcg 11/06/2020 12:00:00 AM EDT [...] 1.0 {tablet_in_the_morning_with_food} active Chlorthalidone 25 MG eCW1 ([facility]) carvedilol 12.5 MG Oral Tablet CARVEDILOL [...] 1.0 {tablet_in_the_morning_with_food} active Chlorthalidone 25 MG eCW1 ([facility]) 75 mg 10/16/2020 12:00:00 AM EDT [...] 10.0 {ml_on_an_empty_stomach} suspended Carafate 1 GM/10ML eCW1 ([facility]) Sucralfate 100 MG/ML Oral Suspension [Carafate] Carafa te 1 GM/10ML Carafate 1 GM/10ML 08/19/2020 12:00:00 AM EDT 10.0 {ml_on_an_empty_stomach} active Carafate 1 GM/10ML eCW1 ([facility]) Paroxetine HCl 10 MG Paroxetine HCl 10 MG 08/19/2020 12:00:00 AM ED T 1.0 {tablet_in_the_morning} active Paroxeti ne HCl 10 MG eCW1 ([facility]) Sucralfate 100 MG/ML Oral Suspension [Carafate] Carafa te 1 GM/10ML Carafate 1 GM/10ML 08/19/2020 12:00:00 AM EDT 10.0 {ml_on_an_empty_stomach} active Carafate 1 GM/10ML eCW1 ([facility]) Sucralfate 100 MG/ML Oral Suspension [Carafate] Carafa te 1 GM/10ML Carafate 1 GM/10ML 08/19/2020 12:00:00 AM EDT 10.0 {ml_on_an_empty_stomach} active Carafate 1 GM/10ML eCW1 ([facility]) Sucralfate 100 MG/ML Oral Suspension [Carafate] Carafa te 1 GM/10ML Carafate 1 GM/10ML 08/19/2020 12:00:00 AM EDT 10.0 {ml_on_an_empty_stomach} active Carafate 1 GM/10ML eCW1 ([facility]) PARoxetine HCl 10 MG PARoxetine HCl 10 MG 08/19/2020 12:00:00 AM ED T 1.0 {tablet_in_the_morning} active PARoxeti ne HCl 10 MG eCW1 ([facility]) Sucralfate 100 MG/ML Oral Suspension [Carafate] Carafa te 1 GM/10ML Carafate 1 GM/10ML 08/19/2020 12:00:00 AM EDT 10.0 {ml_on_an_empty_stomach} active Carafate 1 GM/10ML eCW1 ([facility]) Sucralfate 100 MG/ML Oral Suspension [Carafate] Carafa te 1 GM/10ML Carafate 1 GM/10ML 08/19/2020 12:00:00 AM EDT 10.0 {ml_on_an_empty_stomach} active Carafate 1 GM/10ML eCW1 ([facility]) lansoprazole 30 MG Delayed Release Oral Capsule Lansop razole 30 MG Lansoprazole 30 MG 08/19/2020 12:00:00 AM EDT 1.0 {capsule_before_a_meal} active Lansoprazole 30 MG eCW1 ([facility]) lansoprazole 30 MG Delayed Release Oral Capsule Lansop razole 30 MG Lansoprazole 30 MG 08/19/2020 12:00:00 AM EDT 1.0 {capsule_before_a_meal} active Lansoprazole 30 MG eCW1 ([facility]) Sucralfate 100 MG/ML Oral Suspension [Carafate] Carafa te 1 GM/10ML Carafate 1 GM/10ML 08/19/2020 12:00:00 AM EDT 10.0 {ml_on_an_empty_stomach} active Carafate 1 GM/10ML eCW1 ([facility]) Sucralfate 100 MG/ML Oral Suspension [Carafate] Carafa te 1 GM/10ML Carafate 1 GM/10ML 08/19/2020 12:00:00 AM EDT 10.0 {ml_on_an_empty_stomach} active Carafate 1 GM/10ML eCW1 ([facility]) PARoxetine HCl 10 MG PARoxetine HCl 10 MG 08/19/2020 12:00:00 AM ED T 1.0 {tablet_in_the_morning} suspended PARoxe dylan HCl 10 MG eCW1 ([facility]) lansoprazole 30 MG Delayed Release Oral Capsule Lansop razole 30 MG Lansoprazole 30 MG 08/19/2020 12:00:00 AM EDT 1.0 {capsule_before_a_meal} active eCW1 ([facility]) Sucralfate 100 MG/ML Oral Suspension [Carafate] Carafa te 1 GM/10ML Carafate 1 GM/10ML 08/19/2020 12:00:00 AM EDT 10.0 {ml_on_an_empty_stomach} active Carafate 1 GM/10ML eCW1 ([facility]) Sucralfate 100 MG/ML Oral Suspension [Carafate] Carafa te 1 GM/10ML Carafate 1 GM/10ML 08/19/2020 12:00:00 AM EDT 10.0 {ml_on_an_empty_stomach} active Carafate 1 GM/10ML eCW1 ([facility]) Paroxetine HCl 10 MG Paroxetine HCl 10 MG 08/19/2020 12:00:00 AM ED T 1.0 {tablet_in_the_morning} active Paroxeti ne HCl 10 MG eCW1 ([facility]) lansoprazole 30 MG Delayed Release Oral Capsule Lansop razole 30 MG Lansoprazole 30 MG 08/19/2020 12:00:00 AM EDT 1.0 {capsule_before_a_meal} active eCW1 ([facility]) PARoxetine HCl 10 MG PARoxetine HCl 10 MG 08/19/2020 12:00:00 AM ED T 1.0 {tablet_in_the_morning} active PARoxeti ne HCl 10 MG eCW1 ([facility]) lansoprazole 30 MG Delayed Release Oral Capsule Lansop razole 30 MG Lansoprazole 30 MG 08/19/2020 12:00:00 AM EDT 1.0 {capsule_before_a_meal} active eCW1 ([facility]) lansoprazole 30 MG Delayed Release Oral Capsule Lansop razole 30 MG Lansoprazole 30 MG 08/19/2020 12:00:00 AM EDT 1.0 {capsule_before_a_meal} active Lansoprazole 30 MG eCW1 ([facility]) PARoxetine HCl 10 MG PARoxetine HCl 10 MG 08/19/2020 12:00:00 AM ED T 1.0 {tablet_in_the_morning} active PARoxeti ne HCl 10 MG eCW1 ([facility]) Paroxetine HCl 10 MG Paroxetine HCl 10 MG 08/19/2020 12:00:00 AM ED T 1.0 {tablet_in_the_morning} active Paroxeti ne HCl 10 MG eCW1 ([facility]) lansoprazole 30 MG Delayed Release Oral Capsule Lansop razole 30 MG Lansoprazole 30 MG 08/19/2020 12:00:00 AM EDT 1.0 {capsule_before_a_meal} active Lansoprazole 30 MG eCW1 ([facility]) lansoprazole 30 MG Delayed Release Oral Capsule Lansop razole 30 MG Lansoprazole 30 MG 08/19/2020 12:00:00 AM EDT 1.0 {capsule_before_a_meal} active Lansoprazole 30 MG eCW1 ([facility]) PARoxetine HCl 10 MG PARoxetine HCl 10 MG 08/19/2020 12:00:00 AM ED T 1.0 {tablet_in_the_morning} active PARoxeti ne HCl 10 MG eCW1 ([facility]) Sucralfate 100 MG/ML Oral Suspension [Carafate] Carafa te 1 GM/10ML Carafate 1 GM/10ML 08/19/2020 12:00:00 AM EDT 10.0 {ml_on_an_empty_stomach} active Carafate 1 GM/10ML eCW1 ([facility]) PARoxetine HCl 10 MG PARoxetine HCl 10 MG 08/19/2020 12:00:00 AM ED T 1.0 {tablet_in_the_morning} active PARoxeti ne HCl 10 MG eCW1 ([facility]) Sucralfate 100 MG/ML Oral Suspension [Carafate] Carafa te 1 GM/10ML Carafate 1 GM/10ML 08/19/2020 12:00:00 AM EDT 10.0 {ml_on_an_empty_stomach} active Carafate 1 GM/10ML eCW1 ([facility]) PARoxetine HCl 10 MG PARoxetine HCl 10 MG 08/19/2020 12:00:00 AM ED T 1.0 {tablet_in_the_morning} active PARoxeti ne HCl 10 MG eCW1 ([facility]) lansoprazole 30 MG Delayed Release Oral Capsule Lansop razole 30 MG Lansoprazole 30 MG 08/19/2020 12:00:00 AM EDT 1.0 {capsule_before_a_meal} active Lansoprazole 30 MG eCW1 ([facility]) lansoprazole 30 MG Delayed Release Oral Capsule Lansop razole 30 MG Lansoprazole 30 MG 08/19/2020 12:00:00 AM EDT 1.0 {capsule_before_a_meal} active Lansoprazole 30 MG eCW1 ([facility]) lansoprazole 30 MG Delayed Release Oral Capsule Lansop razole 30 MG Lansoprazole 30 MG 08/19/2020 12:00:00 AM EDT 1.0 {capsule_before_a_meal} active Lansoprazole 30 MG eCW1 ([facility]) lansoprazole 30 MG Delayed Release Oral Capsule Lansop razole 30 MG Lansoprazole 30 MG 08/19/2020 12:00:00 AM EDT 1.0 {capsule_before_a_meal} active Lansoprazole 30 MG eCW1 ([facility]) lansoprazole 30 MG Delayed Release Oral Capsule Lansop razole 30 MG Lansoprazole 30 MG 08/19/2020 12:00:00 AM EDT 1.0 {capsule_before_a_meal} active Lansoprazole 30 MG eCW1 ([facility]) PARoxetine HCl 10 MG PARoxetine HCl 10 MG 08/19/2020 12:00:00 AM ED T 1.0 {tablet_in_the_morning} active PARoxeti ne HCl 10 MG eCW1 ([facility]) lansoprazole 30 MG Delayed Release Oral Capsule Lansop razole 30 MG Lansoprazole 30 MG 08/19/2020 12:00:00 AM EDT 1.0 {capsule_before_a_meal} active Lansoprazole 30 MG eCW1 ([facility]) lansoprazole 30 MG Delayed Release Oral Capsule Lansop razole 30 MG Lansoprazole 30 MG 08/19/2020 12:00:00 AM EDT 1.0 {capsule_before_a_meal} active Lansoprazole 30 MG eCW1 ([facility]) lansoprazole 30 MG Delayed Release Oral Capsule Lansop razole 30 MG Lansoprazole 30 MG 08/19/2020 12:00:00 AM EDT 1.0 {capsule_before_a_meal} active Lansoprazole 30 MG eCW1 ([facility]) lansoprazole 30 MG Delayed Release Oral Capsule Lansop razole 30 MG Lansoprazole 30 MG 08/19/2020 12:00:00 AM EDT 1.0 {capsule_before_a_meal} active Lansoprazole 30 MG eCW1 ([facility]) Sucralfate 100 MG/ML Oral Suspension [Carafate] Carafa te 1 GM/10ML Carafate 1 GM/10ML 08/19/2020 12:00:00 AM EDT 10.0 {ml_on_an_empty_stomach} active Carafate 1 GM/10ML eCW1 ([facility]) lansoprazole 30 MG Delayed Release Oral Capsule Lansop razole 30 MG Lansoprazole 30 MG 08/19/2020 12:00:00 AM EDT 1.0 {capsule_before_a_meal} active eCW1 ([facility]) PARoxetine HCl 10 MG PARoxetine HCl 10 MG 08/19/2020 12:00:00 AM ED T 1.0 {tablet_in_the_morning} active PARoxeti ne HCl 10 MG eCW1 ([facility]) lansoprazole 30 MG Delayed Release Oral Capsule Lansop razole 30 MG Lansoprazole 30 MG 08/19/2020 12:00:00 AM EDT 1.0 {capsule_before_a_meal} active Lansoprazole 30 MG eCW1 ([facility]) lansoprazole 30 MG Delayed Release Oral Capsule Lansop razole 30 MG Lansoprazole 30 MG 08/19/2020 12:00:00 AM EDT 1.0 {capsule_before_a_meal} active Lansoprazole 30 MG eCW1 ([facility]) lansoprazole 30 MG Delayed Release Oral Capsule Lansop razole 30 MG Lansoprazole 30 MG 08/19/2020 12:00:00 AM EDT 1.0 {capsule_before_a_meal} active Lansoprazole 30 MG eCW1 ([facility]) lansoprazole 30 MG Delayed Release Oral Capsule Lansop razole 30 MG Lansoprazole 30 MG 08/19/2020 12:00:00 AM EDT 1.0 {capsule_before_a_meal} active Lansoprazole 30 MG eCW1 ([facility]) lansoprazole 30 MG Delayed Release Oral Capsule Lansop razole 30 MG Lansoprazole 30 MG 08/19/2020 12:00:00 AM EDT 1.0 {capsule_before_a_meal} active Lansoprazole 30 MG eCW1 ([facility]) Sucralfate 100 MG/ML Oral Suspension [Carafate] Carafa te 1 GM/10ML Carafate 1 GM/10ML 08/19/2020 12:00:00 AM EDT 10.0 {ml_on_an_empty_stomach} active Carafate 1 GM/10ML eCW1 ([facility]) lansoprazole 30 MG Delayed Release Oral Capsule Lansop razole 30 MG Lansoprazole 30 MG 08/19/2020 12:00:00 AM EDT 1.0 {capsule_before_a_meal} active Lansoprazole 30 MG eCW1 ([facility]) Sucralfate 100 MG/ML Oral Suspension [Carafate] Carafa te 1 GM/10ML Carafate 1 GM/10ML 08/19/2020 12:00:00 AM EDT 10.0 {ml_on_an_empty_stomach} active Carafate 1 GM/10ML eCW1 ([facility]) Paroxetine HCl 10 MG Paroxetine HCl 10 MG 08/19/2020 12:00:00 AM ED T 1.0 {tablet_in_the_morning} active Paroxeti ne HCl 10 MG eCW1 ([facility]) PARoxetine HCl 10 MG PARoxetine HCl 10 MG 08/19/2020 12:00:00 AM ED T 1.0 {tablet_in_the_morning} active PARoxeti ne HCl 10 MG eCW1 ([facility]) PARoxetine HCl 10 MG PARoxetine HCl 10 MG 08/19/2020 12:00:00 AM ED T 1.0 {tablet_in_the_morning} active PARoxeti ne HCl 10 MG eCW1 ([facility]) lansoprazole 30 MG Delayed Release Oral Capsule Lansop razole 30 MG Lansoprazole 30 MG 08/19/2020 12:00:00 AM EDT 1.0 {capsule_before_a_meal} active Lansoprazole 30 MG eCW1 ([facility]) lansoprazole 30 MG Delayed Release Oral Capsule Lansop razole 30 MG Lansoprazole 30 MG 08/19/2020 12:00:00 AM EDT 1.0 {capsule_before_a_meal} active Lansoprazole 30 MG eCW1 ([facility]) lansoprazole 30 MG Delayed Release Oral Capsule Lansop razole 30 MG Lansoprazole 30 MG 08/19/2020 12:00:00 AM EDT 1.0 {capsule_before_a_meal} active Lansoprazole 30 MG eCW1 ([facility]) Sucralfate 100 MG/ML Oral Suspension [Carafate] Carafa te 1 GM/10ML Carafate 1 GM/10ML 08/19/2020 12:00:00 AM EDT 10.0 {ml_on_an_empty_stomach} active Carafate 1 GM/10ML eCW1 ([facility]) lansoprazole 30 MG Delayed Release Oral Capsule Lansop razole 30 MG Lansoprazole 30 MG 08/19/2020 12:00:00 AM EDT 1.0 {capsule_before_a_meal} active Lansoprazole 30 MG eCW1 ([facility]) lansoprazole 30 MG Delayed Release Oral Capsule Lansop razole 30 MG Lansoprazole 30 MG 08/19/2020 12:00:00 AM EDT 1.0 {capsule_before_a_meal} active Lansoprazole 30 MG eCW1 ([facility]) lansoprazole 30 MG Delayed Release Oral Capsule Lansop razole 30 MG Lansoprazole 30 MG 08/19/2020 12:00:00 AM EDT 1.0 {capsule_before_a_meal} active Lansoprazole 30 MG eCW1 ([facility]) Sucralfate 100 MG/ML Oral Suspension [Carafate] Carafa te 1 GM/10ML Carafate 1 GM/10ML 08/19/2020 12:00:00 AM EDT 10.0 {ml_on_an_empty_stomach} suspended Carafate 1 GM/10ML eCW1 ([facility]) PARoxetine HCl 10 MG PARoxetine HCl 10 MG 08/19/2020 12:00:00 AM ED T 1.0 {tablet_in_the_morning} active PARoxeti ne HCl 10 MG eCW1 ([facility]) Paroxetine HCl 10 MG Paroxetine HCl 10 MG 08/19/2020 12:00:00 AM ED T 1.0 {tablet_in_the_morning} active Paroxeti ne HCl 10 MG eCW1 ([facility]) PARoxetine HCl 10 MG PARoxetine HCl 10 MG 08/19/2020 12:00:00 AM ED T 1.0 {tablet_in_the_morning} suspended PARoxe dylan HCl 10 MG eCW1 ([facility]) Sucralfate 100 MG/ML Oral Suspension [Carafate] Carafa te 1 GM/10ML Carafate 1 GM/10ML 08/19/2020 12:00:00 AM EDT 10.0 {ml_on_an_empty_stomach} active Carafate 1 GM/10ML eCW1 ([facility]) lansoprazole 30 MG Delayed Release Oral Capsule Lansop razole 30 MG Lansoprazole 30 MG 08/19/2020 12:00:00 AM EDT 1.0 {capsule_before_a_meal} active Lansoprazole 30 MG eCW1 ([facility]) lansoprazole 30 MG Delayed Release Oral Capsule Lansop razole 30 MG Lansoprazole 30 MG 08/19/2020 12:00:00 AM EDT 1.0 {capsule_before_a_meal} active Lansoprazole 30 MG eCW1 ([facility]) lansoprazole 30 MG Delayed Release Oral Capsule Lansop razole 30 MG Lansoprazole 30 MG 08/19/2020 12:00:00 AM EDT 1.0 {capsule_before_a_meal} active Lansoprazole 30 MG eCW1 ([facility]) lansoprazole 30 MG Delayed Release Oral Capsule Lansop razole 30 MG Lansoprazole 30 MG 08/19/2020 12:00:00 AM EDT 1.0 {capsule_before_a_meal} active Lansoprazole 30 MG eCW1 ([facility]) Sucralfate 100 MG/ML Oral Suspension [Carafate] Carafa te 1 GM/10ML Carafate 1 GM/10ML 08/19/2020 12:00:00 AM EDT 10.0 {ml_on_an_empty_stomach} active Carafate 1 GM/10ML eCW1 ([facility]) lansoprazole 30 MG Delayed Release Oral Capsule Lansop razole 30 MG Lansoprazole 30 MG 08/19/2020 12:00:00 AM EDT 1.0 {capsule_before_a_meal} active Lansoprazole 30 MG eCW1 ([facility]) Sucralfate 100 MG/ML Oral Suspension [Carafate] Carafa te 1 GM/10ML Carafate 1 GM/10ML 08/19/2020 12:00:00 AM EDT 10.0 {ml_on_an_empty_stomach} active Carafate 1 GM/10ML eCW1 ([facility]) Paroxetine HCl 10 MG Paroxetine HCl 10 MG 08/19/2020 12:00:00 AM ED T 1.0 {tablet_in_the_morning} active Paroxeti ne HCl 10 MG eCW1 ([facility]) lansoprazole 30 MG Delayed Release Oral Capsule Lansop razole 30 MG Lansoprazole 30 MG 08/19/2020 12:00:00 AM EDT 1.0 {capsule_before_a_meal} active Lansoprazole 30 MG eCW1 ([facility]) PARoxetine HCl 10 MG PARoxetine HCl 10 MG 08/19/2020 12:00:00 AM ED T 1.0 {tablet_in_the_morning} active PARoxeti ne HCl 10 MG eCW1 ([facility]) lansoprazole 30 MG Delayed Release Oral Capsule Lansop razole 30 MG Lansoprazole 30 MG 08/19/2020 12:00:00 AM EDT 1.0 {capsule_before_a_meal} active Lansoprazole 30 MG eCW1 ([facility]) Sucralfate 100 MG/ML Oral Suspension [Carafate] Carafa te 1 GM/10ML Carafate 1 GM/10ML 08/19/2020 12:00:00 AM EDT 10.0 {ml_on_an_empty_stomach} active Carafate 1 GM/10ML eCW1 ([facility]) PARoxetine HCl 10 MG PARoxetine HCl 10 MG 08/19/2020 12:00:00 AM ED T 1.0 {tablet_in_the_morning} active PARoxeti ne HCl 10 MG eCW1 ([facility]) lansoprazole 30 MG Delayed Release Oral Capsule Lansop razole 30 MG Lansoprazole 30 MG 08/19/2020 12:00:00 AM EDT 1.0 {capsule_before_a_meal} active Lansoprazole 30 MG eCW1 ([facility]) Sucralfate 100 MG/ML Oral Suspension [Carafate] Carafa te 1 GM/10ML Carafate 1 GM/10ML 08/19/2020 12:00:00 AM EDT 10.0 {ml_on_an_empty_stomach} active Carafate 1 GM/10ML eCW1 ([facility]) Sucralfate 100 MG/ML Oral Suspension [Carafate] Carafa te 1 GM/10ML Carafate 1 GM/10ML 08/19/2020 12:00:00 AM EDT 10.0 {ml_on_an_empty_stomach} active Carafate 1 GM/10ML eCW1 ([facility]) Paroxetine HCl 10 MG Paroxetine HCl 10 MG 08/19/2020 12:00:00 AM ED T 1.0 {tablet_in_the_morning} active Paroxeti ne HCl 10 MG eCW1 ([facility]) lansoprazole 30 MG Delayed Release Oral Capsule Lansop razole 30 MG Lansoprazole 30 MG 08/19/2020 12:00:00 AM EDT 1.0 {capsule_before_a_meal} active Lansoprazole 30 MG eCW1 ([facility]) PARoxetine HCl 10 MG PARoxetine HCl 10 MG 08/19/2020 12:00:00 AM ED T 1.0 {tablet_in_the_morning} active PARoxeti ne HCl 10 MG eCW1 ([facility]) PARoxetine HCl 10 MG PARoxetine HCl 10 MG 08/19/2020 12:00:00 AM ED T 1.0 {tablet_in_the_morning} active PARoxeti ne HCl 10 MG [facility] Sucralfate 100 MG/ML Oral Suspension [Carafate] Carafa te 1 GM/10ML Carafate 1 GM/10ML 08/19/2020 12:00:00 AM EDT 10.0 {ml_on_an_empty_stomach} active Carafate 1 GM/10ML eCW1 ([facility]) lansoprazole 30 MG Delayed Release Oral Capsule Lansop razole 30 MG Lansoprazole 30 MG 08/19/2020 12:00:00 AM EDT 1.0 {capsule_before_a_meal} active Lansoprazole 30 MG eCW1 ([facility]) PARoxetine HCl 10 MG PARoxetine HCl 10 MG 08/19/2020 12:00:00 AM ED T 1.0 {tablet_in_the_morning} active PARoxeti ne HCl 10 MG eCW1 ([facility]) lansoprazole 30 MG Delayed Release Oral Capsule Lansop razole 30 MG Lansoprazole 30 MG 08/19/2020 12:00:00 AM EDT 1.0 {capsule_before_a_meal} active Lansoprazole 30 MG eCW1 ([facility]) lansoprazole 30 MG Delayed Release Oral Capsule Lansop razole 30 MG Lansoprazole 30 MG 08/19/2020 12:00:00 AM EDT 1.0 {capsule_before_a_meal} active Lansoprazole 30 MG eCW1 ([facility]) 10 mg 08/15/2020 12:00:00 AM EDT capsule 28 TAKE ONE CAPSULE BY MOUTH EVERY 6 HOURS NEEDED FOR IRRITABLE BOWEL SYMPTOMS TAKE ONE CAPSULE BY MOUTH EVERY 6 HOURS NEEDED FOR IRRITABLE BOWEL SYMPTOMS SOLD: 08/16/2020 [facility] Estradiol 0.1 MG/ML Vaginal Cream Estradiol 0.1 MG/GM Estrad iol 0.1 MG/GM 08/11/2020 12:00:00 AM EDT active Estradiol 0.1 MG/GM eCW1 [facility]) Estradiol 0.1 MG/ML Vaginal Cream Estradiol 0.1 MG/GM Estrad iol 0.1 MG/GM 08/11/2020 12:00:00 AM EDT active Estradiol 0.1 MG/GM eCW1 ([facility]) Estradiol 0.1 MG/ML Vaginal Cream Estradiol 0.1 MG/GM Estrad iol 0.1 MG/GM 08/11/2020 12:00:00 AM EDT active Estradiol 0.1 MG/GM eCW1 ([facility]) Estradiol 0.1 MG/ML Vaginal Cream Estradiol 0.1 MG/GM Estrad iol 0.1 MG/GM 08/11/2020 12:00:00 AM EDT active Estradiol 0.1 MG/GM eCW1 ([facility]) Phenazopyridine hydrochloride 200 MG Oral Tablet Phena zopyridine HCl 200 MG Phenazopyridine HCl 200 MG 08/08/2020 12:00:00 AM EDT 1.0 {t ablet_after_meals} active Phenazopyridine HCl 200 MG eCW1 ([facility]) Phenazopyridine hydrochloride 200 MG Oral Tablet Phena zopyridine HCl 200 MG Phenazopyridine HCl 200 MG 08/08/2020 12:00:00 AM EDT 1.0 {t ablet_after_meals} active Phenazopyridine HCl 200 MG eCW1 ([facility]) Phenazopyridine hydrochloride 200 MG Oral Tablet Phena zopyridine HCl 200 MG Phenazopyridine HCl 200 MG 08/08/2020 12:00:00 AM EDT 1.0 {t ablet_after_meals} active Phenazopyridine HCl 200 MG eCW1 ([facility]) Ciprofloxacin 500 MG Oral Tablet [Cipro] Cipro 500 MG Cipro 500 MG 08/08/2020 12:00:00 AM EDT 1.0 {tablet} active Ci pro 500 MG eCW1 ([facility]) 500 mg 08/08/2020 12:00:00 AM EDT tablet 6 TAKE ONE TABLET BY MOUTH EVERY 12 HOURS FOR 3 DAYS TAKE ONE TABLET BY MOUTH EVERY 12 HOURS FOR 3 DAYS ANNALISA [facility] Ciprofloxacin 500 MG Oral Tablet [Cipro] Cipro 500 MG Cipro 500 MG 08/08/2020 12:00:00 AM EDT 1.0 {tablet} active Ci pro 500 MG eCW1 ([facility]) Phenazopyridine hydrochloride 200 MG Oral Tablet Phena zopyridine HCl 200 MG Phenazopyridine HCl 200 MG 08/08/2020 12:00:00 AM EDT 1.0 {t ablet_after_meals} active Phenazopyridine HCl 200 MG eCW1 ([facility]) Ciprofloxacin 500 MG Oral Tablet [Cipro] Cipro 500 MG Cipro 500 MG 08/08/2020 12:00:00 AM EDT 1.0 {tablet} active Ci pro 500 MG eCW1 ([facility]) Phenazopyridine hydrochloride 200 MG Oral Tablet Phena zopyridine HCl 200 MG Phenazopyridine HCl 200 MG 08/08/2020 12:00:00 AM EDT 1.0 {t ablet_after_meals} active Phenazopyridine HCl 200 MG eCW1 ([facility]) 200 mg 08/08/2020 12:00:00 AM EDT tablet 6 TAKE ONE TABLET BY MOUTH THREE TIMES A DAY AFTER MEALS TAKE ONE TABLET BY MOUTH THREE TIMES A DAY AFTER MEALS SOLD: 08/08/2020 [facility] Ciprofloxacin 500 MG Oral Tablet [Cipro] Cipro 500 MG Cipro 500 MG 08/08/2020 12:00:00 AM EDT 1.0 {tablet} active Ci pro 500 MG eCW1 ([facility]) Ciprofloxacin 500 MG Oral Tablet [Cipro] Cipro 500 MG Cipro 500 MG 08/08/2020 12:00:00 AM EDT 1.0 {tablet} active Ci pro 500 MG eCW1 ([facility]) Rosuvastatin calcium 40 MG Oral Tablet [...] CPAP 07/25/2020 12:00:00 AM EST active MEDENT ([facility], ) Cyclobenzaprine hydrochloride 10 MG Oral [...] 1.0 {tablet_on_the_tongue_and_allow_to_dissolve} active Ondansetron 4 MG eCW1 ([facility]) Ondansetron 4 MG Disintegrating Oral Tablet Ondansetron 4 MG 07/07/2020 12:00:00 AM EST 1.0 {tablet_on_the_tongue_and_allow_to_dissolve} active Ondansetron 4 MG eC1 ([facility]) Ondansetron 4 MG Disintegrating Oral Tablet Ondansetron 4 MG 07/07/2020 12:00:00 AM EST 1.0 {tablet_on_the_tongue_and_allow_to_dissolve} active Ondansetron 4 MG eC1 ([facility]) Ondansetron 4 MG Disintegrating Oral Tablet Ondansetron 4 MG 07/07/2020 12:00:00 AM EST 1.0 {tablet_on_the_tongue_and_allow_to_dissolve} active Ondansetron 4 MG eCW1 ([facility]) Ondansetron 4 MG Disintegrating Oral Tablet Ondansetron 4 MG 07/07/2020 12:00:00 AM EST 1.0 {tablet_on_the_tongue_and_allow_to_dissolve} active Ondansetron 4 MG eCW1 ([facility]) Ondansetron 4 MG Disintegrating Oral Tablet Ondansetron 4 MG 07/07/2020 12:00:00 AM EST 1.0 {tablet_on_the_tongue_and_allow_to_dissolve} active Ondansetron 4 MG eCW1 ([facility]) Ondansetron 4 MG Disintegrating Oral Tablet Ondansetron 4 MG 07/07/2020 12:00:00 AM EST 1.0 {tablet_on_the_tongue_and_allow_to_dissolve} active Ondansetron 4 MG eCW1 ([facility]) Ondansetron 4 MG Disintegrating Oral Tablet Ondansetron 4 MG 07/07/2020 12:00:00 AM EST 1.0 {tablet_on_the_tongue_and_allow_to_dissolve} active Ondansetron 4 MG eCW1 ([facility]) Ondansetron 4 MG Disintegrating Oral Tablet Ondansetron 4 MG 07/07/2020 12:00:00 AM EST 1.0 {tablet_on_the_tongue_and_allow_to_dissolve} active Ondansetron 4 MG eCW1 ([facility]) Ondansetron 4 MG Disintegrating Oral Tablet Ondansetron 4 MG 07/07/2020 12:00:00 AM EST 1.0 {tablet_on_the_tongue_and_allow_to_dissolve} active Ondansetron 4 MG eCW1 ([facility]) Ondansetron 4 MG Disintegrating Oral Tablet Ondansetron 4 MG 07/07/2020 12:00:00 AM EST 1.0 {tablet_on_the_tongue_and_allow_to_dissolve} suspended Ondansetron 4 MG eCW1 ([facility]) Ondansetron 4 MG Disintegrating Oral Tablet Ondansetron 4 MG 07/07/2020 12:00:00 AM EST 1.0 {tablet_on_the_tongue_and_allow_to_dissolve} active Ondansetron 4 MG eCW1 ([facility]) Ondansetron 4 MG Disintegrating Oral Tablet Ondansetron 4 MG 07/07/2020 12:00:00 AM EST 1.0 {tablet_on_the_tongue_and_allow_to_dissolve} active Ondansetron 4 MG eCW1 ([facility]) Ondansetron 4 MG Disintegrating Oral Tablet Ondansetron 4 MG 07/07/2020 12:00:00 AM EST 1.0 {tablet_on_the_tongue_and_allow_to_dissolve} suspended Ondansetron 4 MG eCW1 ([facility]) Ondansetron 4 MG Disintegrating Oral Tablet Ondansetron 4 MG 07/07/2020 12:00:00 AM EST 1.0 {tablet_on_the_tongue_and_allow_to_dissolve} active Ondansetron 4 MG eCW1 ([facility]) Ondansetron 4 MG Disintegrating Oral Tablet Ondansetron 4 MG 07/07/2020 12:00:00 AM EST 1.0 {tablet_on_the_tongue_and_allow_to_dissolve} active Ondansetron 4 MG eCW1 ([facility]) Ondansetron 4 MG Disintegrating Oral Tablet Ondansetron 4 MG 07/07/2020 12:00:00 AM EST 1.0 {tablet_on_the_tongue_and_allow_to_dissolve} active Ondansetron 4 MG eCW1 ([facility]) Ondansetron 4 MG Disintegrating Oral Tablet Ondansetron 4 MG 07/07/2020 12:00:00 AM EST 1.0 {tablet_on_the_tongue_and_allow_to_dissolve} active Ondansetron 4 MG eCW1 ([facility]) Ondansetron 4 MG Disintegrating Oral Tablet Ondansetron 4 MG 07/07/2020 12:00:00 AM EST 1.0 {tablet_on_the_tongue_and_allow_to_dissolve} active Ondansetron 4 MG eCW1 ([facility]) Ondansetron 4 MG Disintegrating Oral Tablet Ondansetron 4 MG 07/07/2020 12:00:00 AM EST 1.0 {tablet_on_the_tongue_and_allow_to_dissolve} active Ondansetron 4 MG eCW1 ([facility]) Ondansetron 4 MG Disintegrating Oral Tablet Ondansetron 4 MG 07/07/2020 12:00:00 AM EST 1.0 {tablet_on_the_tongue_and_allow_to_dissolve} active Ondansetron 4 MG eCW1 ([facility]) Ondansetron 4 MG Disintegrating Oral Tablet Ondansetron 4 MG 07/07/2020 12:00:00 AM EST 1.0 {tablet_on_the_tongue_and_allow_to_dissolve} active Ondansetron 4 MG eCW1 ([facility]) Ondansetron 4 MG Disintegrating Oral Tablet Ondansetron 4 MG 07/07/2020 12:00:00 AM EST 1.0 {tablet_on_the_tongue_and_allow_to_dissolve} active Ondansetron 4 MG eCW1 ([facility]) Ondansetron 4 MG Disintegrating Oral Tablet Ondansetron 4 MG 07/07/2020 12:00:00 AM EST 1.0 {tablet_on_the_tongue_and_allow_to_dissolve} active Ondansetron 4 MG eCW1 ([facility]) Ondansetron 4 MG Disintegrating Oral Tablet Ondansetron 4 MG 07/07/2020 12:00:00 AM EST 1.0 {tablet_on_the_tongue_and_allow_to_dissolve} active Ondansetron 4 MG eCW1 ([facility]) Ondansetron 4 MG Disintegrating Oral Tablet Ondansetron 4 MG 07/07/2020 12:00:00 AM EST 1.0 {tablet_on_the_tongue_and_allow_to_dissolve} active Ondansetron 4 MG eCW1 ([facility]) Ondansetron 4 MG Disintegrating Oral Tablet Ondansetron 4 MG 07/07/2020 12:00:00 AM EST 1.0 {tablet_on_the_tongue_and_allow_to_dissolve} active Ondansetron 4 MG eCW1 ([facility]) Ondansetron 4 MG Disintegrating Oral Tablet Ondansetron 4 MG 07/07/2020 12:00:00 AM EST 1.0 {tablet_on_the_tongue_and_allow_to_dissolve} active Ondansetron 4 MG eCW1 ([facility]) Ondansetron 4 MG Disintegrating Oral Tablet Ondansetron 4 MG 07/07/2020 12:00:00 AM EST 1.0 {tablet_on_the_tongue_and_allow_to_dissolve} active Ondansetron 4 MG eCW1 ([facility]) Ondansetron 4 MG Disintegrating Oral Tablet Ondansetron 4 MG 07/07/2020 12:00:00 AM EST 1.0 {tablet_on_the_tongue_and_allow_to_dissolve} active Ondansetron 4 MG eCW1 ([facility]) Ondansetron 4 MG Disintegrating Oral Tablet Ondansetron 4 MG 07/07/2020 12:00:00 AM EST 1.0 {tablet_on_the_tongue_and_allow_to_dissolve} active Ondansetron 4 MG eCW1 ([facility]) Ondansetron 4 MG Disintegrating Oral Tablet Ondansetron 4 MG 07/07/2020 12:00:00 AM EST 1.0 {tablet_on_the_tongue_and_allow_to_dissolve} active Ondansetron 4 MG eCW1 ([facility]) Ondansetron 4 MG Disintegrating Oral Tablet Ondansetron 4 MG 07/07/2020 12:00:00 AM EST 1.0 {tablet_on_the_tongue_and_allow_to_dissolve} active Ondansetron 4 MG eCW1 ([facility]) Ondansetron 4 MG Disintegrating Oral Tablet Ondansetron 4 MG 07/07/2020 12:00:00 AM EST 1.0 {tablet_on_the_tongue_and_allow_to_dissolve} active Ondansetron 4 MG eCW1 ([facility]) Ondansetron 4 MG Disintegrating Oral Tablet Ondansetron 4 MG 07/07/2020 12:00:00 AM EST 1.0 {tablet_on_the_tongue_and_allow_to_dissolve} active Ondansetron 4 MG eCW1 ([facility]) Ondansetron 4 MG Disintegrating Oral Tablet Ondansetron 4 MG 07/07/2020 12:00:00 AM EST 1.0 {tablet_on_the_tongue_and_allow_to_dissolve} active Ondansetron 4 MG eCW1 ([facility]) Ondansetron 4 MG Disintegrating Oral Tablet Ondansetron 4 MG 07/07/2020 12:00:00 AM EST 1.0 {tablet_on_the_tongue_and_allow_to_dissolve} active Ondansetron 4 MG eCW1 ([facility]) Ondansetron 4 MG Disintegrating Oral Tablet Ondansetron 4 MG 07/07/2020 12:00:00 AM EST 1.0 {tablet_on_the_tongue_and_allow_to_dissolve} active Ondansetron 4 MG eCW1 ([facility]) Ondansetron 4 MG Disintegrating Oral Tablet Ondansetron 4 MG 07/07/2020 12:00:00 AM EST 1.0 {tablet_on_the_tongue_and_allow_to_dissolve} active Ondansetron 4 MG eCW1 ([facility]) 10 mg 07/01/2020 12:00:00 AM EST [...] 1.0 {capsule} suspended Gabapentin 100 MG eCW1 ([facility]) gabapentin 100 MG Oral Capsule Gabapentin 100 MG Gabapentin 100 MG 06/30/2020 12:00:00 AM EST 1.0 {capsule} suspended Gabapentin 100 MG eCW1 ([facility]) gabapentin 100 MG Oral Capsule Gabapentin 100 MG Gabapentin 100 MG 06/30/2020 12:00:00 AM EST 1.0 {capsule} suspended Gabapentin 100 MG eCW1 ([facility]) gabapentin 100 MG Oral Capsule Gabapentin 100 MG Gabapentin 100 MG 06/30/2020 12:00:00 AM EST 1.0 {capsule} active G abapentin 100 MG eCW1 ([facility]) gabapentin 100 MG Oral Capsule Gabapentin 100 MG Gabapentin 100 MG 06/30/2020 12:00:00 AM EST 1.0 {capsule} active G abapentin 100 MG eCW1 ([facility]) gabapentin 100 MG Oral Capsule Gabapentin 100 MG Gabapentin 100 MG 06/30/2020 12:00:00 AM EST 1.0 {capsule} active G abapentin 100 MG eCW1 ([facility]) gabapentin 100 MG Oral Capsule Gabapentin 100 MG Gabapentin 100 MG 06/30/2020 12:00:00 AM EST 1.0 {capsule} active G abapentin 100 MG eCW1 ([facility]) gabapentin 100 MG Oral Capsule Gabapentin 100 MG Gabapentin 100 MG 06/30/2020 12:00:00 AM EST 1.0 {capsule} active G abapentin 100 MG eCW1 ([facility]) gabapentin 100 MG Oral Capsule Gabapentin 100 MG Gabapentin 100 MG 06/30/2020 12:00:00 AM EST 1.0 {capsule} active G abapentin 100 MG eCW1 ([facility]) gabapentin 100 MG Oral Capsule Gabapentin 100 MG Gabapentin 100 MG 06/30/2020 12:00:00 AM EST 1.0 {capsule} suspended Gabapentin 100 MG eCW1 ([facility]) gabapentin 100 MG Oral Capsule Gabapentin 100 MG Gabapentin 100 MG 06/30/2020 12:00:00 AM EST 1.0 {capsule} active G abapentin 100 MG eCW1 ([facility]) gabapentin 100 MG Oral Capsule Gabapentin 100 MG Gabapentin 100 MG 06/30/2020 12:00:00 AM EST 1.0 {capsule} active G abapentin 100 MG eCW1 ([facility]) gabapentin 100 MG Oral Capsule Gabapentin 100 MG Gabapentin 100 MG 06/30/2020 12:00:00 AM EST 1.0 {capsule} active G abapentin 100 MG eCW1 ([facility]) gabapentin 100 MG Oral Capsule Gabapentin 100 MG Gabapentin 100 MG 06/30/2020 12:00:00 AM EST 1.0 {capsule} suspended Gabapentin 100 MG eCW1 ([facility]) PredniSONE ([place]) 10mg UNK 06/23/2020 12:00:00 AM EST suspended PredniSONE ([place]) 10mg eCW1 ([facility]) Doxycycline Monohydrate 100 MG Oral Capsule Doxycycline [place] hydrate 100 MG 06/23/2020 12:00:00 AM EST 1.0 {capsule} active Doxycycline Monohydrate 100 MG eCW1 ([facility]) 10 mg 06/23/2020 12:00:00 AM EST [...] AM EST suspended PredniSONE ([place]) 10mg eCW1 ([facility]) PredniSONE ([place]) 10mg UNK 06/23/2020 12:00:00 AM EST active PredniSONE ([place]) 10mg eCW1 ([facility]) PredniSONE ([place]) 10mg UNK 06/23/2020 12:00:00 AM EST active PredniSONE ([place]) 10mg eCW1 ([facility]) PredniSONE ([place]) 10mg UNK 06/23/2020 12:00:00 AM EST suspended PredniSONE ([place]) 10mg eCW1 ([facility]) PredniSONE ([place]) 10mg UNK 06/23/2020 12:00:00 AM EST active PredniSONE ([place]) 10mg eCW1 ([facility]) Doxycycline Monohydrate 100 MG Oral Capsule Doxycycline Cole hydrate 100 MG 06/23/2020 12:00:00 AM EST 1.0 {capsule} active Doxycycline Monohydrate 100 MG eCW1 ([facility]) PredniSONE ([place]) 10mg UNK 06/23/2020 12:00:00 AM EST active PredniSONE ([place]) 10mg eCW1 ([facility]) PredniSONE ([place]) 10mg UNK 06/23/2020 12:00:00 AM EST suspended PredniSONE ([place]) 10mg eCW1 ([facility]) PredniSONE ([place]) 10mg UNK 06/23/2020 12:00:00 AM EST active PredniSONE ([place]) 10mg eCW1 ([facility]) PredniSONE ([place]) 10mg UNK 06/23/2020 12:00:00 AM EST active PredniSONE ([place]) 10mg eCW1 ([facility]) PredniSONE ([place]) 10mg UNK 06/23/2020 12:00:00 AM EST active PredniSONE ([place]) 10mg eCW1 ([facility]) PredniSONE ([place]) 10mg UNK 06/23/2020 12:00:00 AM EST active PredniSONE ([place]) 10mg eCW1 ([facility]) PredniSONE ([place]) 10mg UNK 06/23/2020 12:00:00 AM EST active PredniSONE ([place]) 10mg eCW1 ([facility]) PredniSONE ([place]) 10mg UNK 06/23/2020 12:00:00 AM EST active PredniSONE ([place]) 10mg eCW1 ([facility]) PredniSONE ([place]) 10mg UNK 06/23/2020 12:00:00 AM EST active PredniSONE ([place]) 10mg eCW1 ([facility]) PredniSONE ([place]) 10mg UNK 06/23/2020 12:00:00 AM EST suspended PredniSONE ([place]) 10mg eCW1 ([facility]) Sodium Chloride 0.111 MEQ/ML Nasal [place] [[place] brand of sodium chloride] [place] Nasal [place] 0.65 % [place] Nasal [place] 0.65 % 06/20/2020 12:00:00 AM EST active [place] Nasal [place] 0.65 % eCW 1 ([facility] Sodium Chloride 0.111 MEQ/ML Nasal [place] [[place] brand of sodium chloride] [place] Nasal [place] 0.65 % [place] Nasal [place] 0.65 % 06/20/2020 12:00:00 AM EST active [place] Nasal [place] 0.65 % eCW 1 ([facility]) montelukast 10 MG Oral Tablet MONTELUKAST SODIUM 06/20/2020 12:0 0:00 AM EST tablet 30 TAKE ONE TABLET BY MOUTH AT BEDT BEV TAKE ONE TABLET BY MOUTH AT BEDTIME SOLD: 06/20/2020 [facility] Sodium Chloride 0.111 MEQ/ML Nasal [place] [[place] brand of sodium chloride] [place] Nasal [place] 0.65 % [place] Nasal [place] 0.65 % 06/20/2020 12:00:00 AM EST active [place] Nasal [place] 0.65 % eCW 1 ([facility] Sodium Chloride 0.111 MEQ/ML Nasal [place] [[place] brand of sodium chloride] [place] Nasal [place] 0.65 % [place] Nasal [place] 0.65 % 06/20/2020 12:00:00 AM EST active [place] Nasal [place] 0.65 % eCW 1 ([facility] Sodium Chloride 0.111 MEQ/ML Nasal [place] [[place] brand of sodium chloride] [place] Nasal [place] 0.65 % [place] Nasal [place] 0.65 % 06/20/2020 12:00:00 AM EST active eCW1 ([facility]) Sodium Chloride 0.111 MEQ/ML Nasal [place] [[place] brand of sodium chloride] [place] Nasal [place] 0.65 % [facility] [place] Nasal [place] 0.65 % 06/20/2020 12:00:00 AM EST active [place] Nasal [place] 0.65 % eCW 1 ([facility]) Sodium Chloride 0.111 MEQ/ML Nasal [place] [[place] brand of sodium chloride] [place] Nasal [place] 0.65 % [place] Nasal [place] 0.65 % 06/20/2020 12:00:00 AM EST active [place] Nasal [place] 0.65 % eCW 1 ([facility]) Sodium Chloride 0.111 MEQ/ML Nasal [place] [[place] brand of sodium chloride] [place] Nasal [place] 0.65 % [place] Nasal [place] 0.65 % 06/20/2020 12:00:00 AM EST active [place] Nasal [place] 0.65 % eCW 1 ([facility]) Sodium Chloride 0.111 MEQ/ML Nasal [place] [[place] brand of sodium chloride] [place] Nasal [place] 0.65 % [facility] [place] Nasal [place] 0.65 % 06/20/2020 12:00:00 AM EST active [place] Nasal [place] 0.65 % eCW 1 ([facility]) Sodium Chloride 0.111 MEQ/ML Nasal [place] [[place] brand of sodium chloride] [place] Nasal [place] 0.65 % [place] Nasal [place] 0.65 % 06/20/2020 12:00:00 AM EST active [place] Nasal [place] 0.65 % eCW 1 [facility] montelukast 10 MG Oral Tablet MONTELUKAST SODIUM 06/20/2020 12:0 0:00 AM EST tablet 30 TAKE ONE TABLET BY MOUTH AT BEDT BEV TAKE ONE TABLET BY MOUTH AT BEDTIME SOLD: 08/21/2020 [facility] Sodium Chloride 0.111 MEQ/ML Nasal [place] [[place] brand of sodium chloride] [place] Nasal [place] 0.65 % [place] Nasal [place] 0.65 % 06/20/2020 12:00:00 AM EST active [place] Nasal [place] 0.65 % eCW 1 ([facility]) Sodium Chloride 0.111 MEQ/ML Nasal [place] [[place] brand of sodium chloride] [place] Nasal [place] 0.65 % [facility] [place] Nasal [place] 0.65 % 06/20/2020 12:00:00 AM EST active eCW1 ([facility]) Sodium Chloride 0.111 MEQ/ML Nasal [place] [[place] brand of sodium chloride] [place] Nasal [place] 0.65 % [facility] Nasal [place] 0.65 % 06/20/2020 12:00:00 AM EST active [place] Nasal [place] 0.65 % eCW 1 ([facility]) Sodium Chloride 0.111 MEQ/ML Nasal [place] [[place] brand of sodium chloride] [place] Nasal [place] 0.65 % [place] Nasal [place] 0.65 % 06/20/2020 12:00:00 AM EST active [place] Nasal [place] 0.65 % eCW 1 ([facility]) Sodium Chloride 0.111 MEQ/ML Nasal [place] [[place] brand of sodium chloride] [place] Nasal [place] 0.65 % [place] Nasal [place] 0.65 % 06/20/2020 12:00:00 AM EST active [place] Nasal [place] 0.65 % eCW 1 ([facility]) Sodium Chloride 0.111 MEQ/ML Nasal [place] [[place] brand of sodium chloride] [place] Nasal [place] 0.65 % [place] Nasal [place] 0.65 % 06/20/2020 12:00:00 AM EST active [place] Nasal [place] 0.65 % eCW 1 ([facility] montelukast 10 MG Oral Tablet MONTELUKAST SODIUM 06/20/2020 12:0 0:00 AM EST tablet 30 TAKE ONE TABLET BY MOUTH AT BEDT BEV TAKE ONE TABLET BY MOUTH AT BEDTIME SOLD: 07/21/2020 [facility] Sodium Chloride 0.111 MEQ/ML Nasal [place] [[place] brand of sodium chloride] [place] Nasal [place] 0.65 % [place] Nasal [place] 0.65 % 06/20/2020 12:00:00 AM EST active [place] Nasal [place] 0.65 % eCW 1 ([facility] Sodium Chloride 0.111 MEQ/ML Nasal [place] [[place] brand of sodium chloride] [place] Nasal [place] 0.65 % [place] Nasal [place] 0.65 % 06/20/2020 12:00:00 AM EST active [place] Nasal [place] 0.65 % eCW 1 ([facility] Sodium Chloride 0.111 MEQ/ML Nasal [place] [[place] brand of sodium chloride] [place] Nasal [place] 0.65 % [place] Nasal [place] 0.65 % 06/20/2020 12:00:00 AM EST active [place] Nasal [place] 0.65 % eCW 1 ([facility]) Sodium Chloride 0.111 MEQ/ML Nasal [place] [[place] brand of sodium chloride] [place] Nasal [place] 0.65 % [place] Nasal [place] 0.65 % 06/20/2020 12:00:00 AM EST active [place] Nasal [place] 0.65 % eCW 1 ([facility]) Sodium Chloride 0.111 MEQ/ML Nasal [place] [[place] brand of sodium chloride] [place] Nasal [place] 0.65 % [facility] [place] Nasal [place] 0.65 % 06/20/2020 12:00:00 AM EST active [place] Nasal [place] 0.65 % eCW 1 ([facility] Sodium Chloride 0.111 MEQ/ML Nasal [place] [[place] brand of sodium chloride] [place] Nasal [place] 0.65 % [facility] [place] Nasal [place] 0.65 % 06/20/2020 12:00:00 AM EST active [place] Nasal [place] 0.65 % eCW 1 ([facility] Sodium Chloride 0.111 MEQ/ML Nasal [place] [[place] brand of sodium chloride] [place] Nasal [place] 0.65 % [facility] Nasal [place] 0.65 % 06/20/2020 12:00:00 AM EST active [place] Nasal [place] 0.65 % eCW 1 ([facility] Sodium Chloride 0.111 MEQ/ML Nasal [place] [[place] brand of sodium chloride] [place] Nasal [place] 0.65 % [facility] Nasal [place] 0.65 % 06/20/2020 12:00:00 AM EST active [place] [facility]al [place] 0.65 % eCW 1 ([facility] Sodium Chloride 0.111 MEQ/ML Nasal [place] [[place] brand of sodium chloride] [place] Nasal [place] 0.65 % [facility] [place] 0.65 % 06/20/2020 12:00:00 AM EST active [place] [facility]al [place] 0.65 % eCW 1 ([facility] Sodium Chloride 0.111 MEQ/ML Nasal [place] [[place] brand of sodium chloride] [place] [facility] [place] 0.65 % [place] [facility] [place] 0.65 % 06/20/2020 12:00:00 AM EST active [place] [facility] [place] 0.65 % eCW 1 ([facility]) Sodium Chloride 0.111 MEQ/ML [facility]al [place] [[place] brand of sodium chloride] [place] [facility] [place] 0.65 % [place] [facility] [place] 0.65 % 06/20/2020 12:00:00 AM EST active [place] [facility] [place] 0.65 % eCW 1 ([facility]) Sodium Chloride 0.111 MEQ/ML Nasal [place] [[place] brand of sodium chloride] [place] [facility] [place] 0.65 % [place] [facility] [place] 0.65 % 06/20/2020 12:00:00 AM EST active [place] [facility] [place] 0.65 % eCW 1 ([facility]) Sodium Chloride 0.111 MEQ/ML Nasal [place] [[place] brand of sodium chloride] [place] [facility] [place] 0.65 % [place] [facility] [place] 0.65 % 06/20/2020 12:00:00 AM EST active [place] [facility] [place] 0.65 % eCW 1 ([facility]) Sodium Chloride 0.111 MEQ/ML Nasal [place] [[place] brand of sodium chloride] [place] [facility] [place] 0.65 % [place] [facility] [place] 0.65 % 06/20/2020 12:00:00 AM EST active [place] [facility] [place] 0.65 % [facility]CW [facility] Sodium Chloride 0.111 MEQ/ML [facility]al [place] [[place] brand of sodium chloride] [place] [facility] [place] 0.65 % [facility] [place] 0.65 % 06/20/2020 12:00:00 AM EST active [place] [facility] [place] 0.65 % eCW 1 [facility] Sodium Chloride 0.111 MEQ/ML [place] [[place] brand of sodium chloride] [place] [facility] [place] 0.65 % [facility] [place] 0.65 % 06/20/2020 12:00:00 AM EST active [place] [facility] [place] 0.65 % eCW 1 ([facility]) Sodium Chloride 0.111 MEQ/ML [place] [[place] brand of sodium chloride] [place] [facility] [place] 0.65 % [facility] [place] 0.65 % 06/20/2020 12:00:00 AM EST active [place] [facility] [place] 0.65 % eCW 1 ([facility]) Sodium Chloride 0.111 MEQ/ML [place] [[place] brand of sodium chloride] [place] [facility] [place] 0.65 % [facility] [place] 0.65 % 06/20/2020 12:00:00 AM EST active eCW1 ([facility]) Sodium Chloride 0.111 MEQ/ML [place] [[place] brand of sodium chloride] [place] [facility] [place] 0.65 % [place] [facility] [place] 0.65 % 06/20/2020 12:00:00 AM EST active [place] [facility] [place] 0.65 % eCW 1 ([facility]) Sodium Chloride 0.111 MEQ/ML [place] [[place] brand of sodium chloride] [place] [facility] [place] 0.65 % [place] [facility] [place] 0.65 % 06/20/2020 12:00:00 AM EST active eCW1 ([facility]) Sodium Chloride 0.111 MEQ/ML [place] [[place] brand of sodium chloride] [place] [facility] [place] 0.65 % [facility] [place] 0.65 % 06/20/2020 12:00:00 AM EST active [place] [facility] [place] 0.65 % eCW 1 ([facility]) Sodium Chloride 0.111 MEQ/ML [place] [[place] brand of sodium chloride] [place] [facility] [place] 0.65 % [facility] [place] 0.65 % 06/20/2020 12:00:00 AM EST active [place] [facility] [place] 0.65 % eCW 1 ([facility]) Sodium Chloride 0.111 MEQ/ML [place] [[place] brand of sodium chloride] [place] [facility] [place] 0.65 % [place] [facility] [place] 0.65 % 06/20/2020 12:00:00 AM EST active [place] [facility] [place] 0.65 % eCW 1 ([facility]) Sodium Chloride 0.111 MEQ/ML [place] [[place] brand of sodium chloride] [place] [facility] [place] 0.65 % [facility] [place] 0.65 % 06/20/2020 12:00:00 AM EST active [place] [facility] [place] 0.65 % eCW 1 ([facility]) Sodium Chloride 0.111 MEQ/ML [place] [[place] brand of sodium chloride] [place] [facility] [place] 0.65 % [facility] [place] 0.65 % 06/20/2020 12:00:00 AM EST active [place] [facility] [place] 0.65 % eCW 1 ([facility]) Sodium Chloride 0.111 MEQ/ML [place] [[place] brand of sodium chloride] [place] [facility] [place] 0.65 % [place] [facility] [place] 0.65 % 06/20/2020 12:00:00 AM EST active [place] [facility] [place] 0.65 % eCW 1 ([facility]) Sodium Chloride 0.111 MEQ/ML [place] [[place] brand of sodium chloride] [place] [facility] [place] 0.65 % [facility] [place] 0.65 % 06/20/2020 12:00:00 AM EST active [place] [facility] [place] 0.65 % eCW 1 ([facility]) Sodium Chloride 0.111 MEQ/ML [place] [[place] brand of sodium chloride] [place] [place] 0.65 % [facility] [place] 0.65 % 06/20/2020 12:00:00 AM EST active [place] [facility] [place] 0.65 % eCW 1 ([facility]) Sodium Chloride 0.111 MEQ/ML [place] [[place] brand of sodium chloride] [place] [place] 0.65 % [facility] [place] 0.65 % 06/20/2020 12:00:00 AM EST active [place] [facility] [place] 0.65 % eCW 1 ([facility]) Sodium Chloride 0.111 MEQ/ML [place] [[place] brand of sodium chloride] [place] [facility] [place] 0.65 % [facility] [place] 0.65 % 06/20/2020 12:00:00 AM EST active [place] [facility] [place] 0.65 % eCW 1 ([facility]) Sodium Chloride 0.111 MEQ/ML [place] [[place] brand of sodium chloride] [place] [facility] [place] 0.65 % [place] [facility] [place] 0.65 % 06/20/2020 12:00:00 AM EST active [place] [facility] [place] 0.65 % eCW 1 ([facility]) Sodium Chloride 0.111 MEQ/ML [place] [[place] brand of sodium chloride] [place] [facility] [place] 0.65 % [place] [facility] [place] 0.65 % 06/20/2020 12:00:00 AM EST active [place] [facility] [place] 0.65 % eCW 1 ([facility]) Sodium Chloride 0.111 MEQ/ML [place] [[place] brand of sodium chloride] [place] [facility] [place] 0.65 % [place] [place] 0.65 % 06/20/2020 12:00:00 AM EST active [place] [facility] [place] 0.65 % eCW 1 ([facility]) Sodium Chloride 0.111 MEQ/ML [facility] [[place] brand of sodium chloride] [place] [facility] [place] 0.65 % [place] [facility] [place] 0.65 % 06/20/2020 12:00:00 AM EST active [place] [facility] [place] 0.65 % eCW 1 ([facility]) Sodium Chloride 0.111 MEQ/ML [place] [[place] brand of sodium chloride] [place] [facility] [place] 0.65 % [place] [place] 0.65 % 06/20/2020 12:00:00 AM EST active [place] [facility] [place] 0.65 % eCW 1 ([facility]) Sodium Chloride 0.111 MEQ/ML [place] [[place] brand of sodium chloride] [place] [facility] [place] 0.65 % [place] [facility] [place] 0.65 % 06/20/2020 12:00:00 AM EST active [place] [facility] [place] 0.65 % eCW 1 ([facility]) Sodium Chloride 0.111 MEQ/ML [place] [[place] brand of sodium chloride] [place] [facility] [place] 0.65 % [place] [facility] [place] 0.65 % 06/20/2020 12:00:00 AM EST active [place] [facility] [place] 0.65 % eCW 1 ([facility]) Sodium Chloride 0.111 MEQ/ML [place] [[place] brand of sodium chloride] [place] [facility] [place] 0.65 % [place] [facility] [place] 0.65 % 06/20/2020 12:00:00 AM EST active [place] [facility] [place] 0.65 % eCW 1 ([facility]) Sodium Chloride 0.111 MEQ/ML [place] [[place] brand of sodium chloride] [place] [facility] [place] 0.65 % [place] [facility] [place] 0.65 % 06/20/2020 12:00:00 AM EST active [place] [facility] [place] 0.65 % eCW 1 [facility]) montelukast 10 MG Oral Tablet MONTELUKAST SODIUM 06/20/2020 12:0 0:00 AM EST tablet 30 TAKE ONE TABLET BY MOUTH AT BEDT BEV TAKE ONE TABLET BY MOUTH AT BEDTIME SOLD: 09/19/2020 [facility] Sodium Chloride 0.111 MEQ/ML [place] [[place] brand of sodium chloride] [place] [facility] [place] 0.65 % [place] [facility] [place] 0.65 % 06/20/2020 12:00:00 AM EST active [place] [facility] [place] 0.65 % eCW 1 ([facility]) Sodium Chloride 0.111 MEQ/ML [place] [[place] brand of sodium chloride] [place] [facility] [place] 0.65 % [place] [facility] [place] 0.65 % 06/20/2020 12:00:00 AM EST active [place] [facility] [place] 0.65 % eCW 1 ([facility]) Sodium Chloride 0.111 MEQ/ML [place] [[place] brand of sodium chloride] [place] [facility] [place] 0.65 % [place] [facility] [place] 0.65 % 06/20/2020 12:00:00 AM EST active [place] [facility] [place] 0.65 % eCW 1 ([facility]) Sodium Chloride 0.111 MEQ/ML [place] [[place] brand of sodium chloride] [place] [facility] [place] 0.65 % [place] [facility] [place] 0.65 % 06/20/2020 12:00:00 AM EST active [place] [facility] [place] 0.65 % eCW 1 ([facility]) Sodium Chloride 0.111 MEQ/ML [place] [[place] brand of sodium chloride] [place] [facility] [place] 0.65 % [place] [place] 0.65 % 06/20/2020 12:00:00 AM EST active [place] [facility] [place] 0.65 % eCW 1 ([facility]) Sodium Chloride 0.111 MEQ/ML [place] [[place] brand of sodium chloride] [place] [facility] [place] 0.65 % [place] [facility] [place] 0.65 % 06/20/2020 12:00:00 AM EST active [place] [facility] [place] 0.65 % eCW 1 [facility]) 100 mg 06/17/2020 12:00:00 AM EST tablet 20 TAKE ONE TABLET BY MOUTH TWICE A DAY FOR 10 DAYS TAKE ONE TABLET BY MOUTH TWICE A DAY FOR 10 DAYS SOLD: 06/17/2020 [facility] Doxycycline Monohydrate 100 MG Oral Tablet Doxycycline Monoh ydrate 06/17/2020 12:00:00 AM EST ORAL completed [facility]ENT ([facility]) 75 mg 06/11/2020 12:00:00 AM EST tablet [...] 06/04/2020 12:00:00 AM EST ORAL completed [facility] ([facility]) 300 mg 06/04/2020 12:00:00 AM EST [...] a ctive Duloxetine HCl 30 MG eCW1 ([facility]) duloxetine 30 MG Delayed Release Oral Capsule Duloxeti ne HCl 30 MG Duloxetine HCl 30 MG 05/19/2020 12:00:00 AM EST 1.0 {capsule} a ctive Duloxetine HCl 30 MG eCW1 ([facility]) duloxetine 30 MG Delayed Release Oral Capsule Duloxeti ne HCl 30 MG Duloxetine HCl 30 MG 05/19/2020 12:00:00 AM EST 1.0 {capsule} a ctive Duloxetine HCl 30 MG eCW1 ([facility]) duloxetine 30 MG Delayed Release Oral Capsule Duloxeti ne HCl 30 MG Duloxetine HCl 30 MG 05/19/2020 12:00:00 AM EST 1.0 {capsule} a ctive Duloxetine HCl 30 MG eCW1 ([facility]) duloxetine 30 MG Delayed Release Oral Capsule Duloxeti ne HCl 30 MG Duloxetine HCl 30 MG 05/19/2020 12:00:00 AM EST 1.0 {capsule} a ctive Duloxetine HCl 30 MG eCW1 ([facility]) duloxetine 30 MG Delayed Release Oral Capsule Duloxeti ne HCl 30 MG Duloxetine HCl 30 MG 05/19/2020 12:00:00 AM EST 1.0 {capsule} a ctive Duloxetine HCl 30 MG eCW1 ([facility]) duloxetine 30 MG Delayed Release Oral Capsule Duloxeti ne HCl 30 MG Duloxetine HCl 30 MG 05/19/2020 12:00:00 AM EST 1.0 {capsule} a ctive Duloxetine HCl 30 MG eCW1 ([facility]) duloxetine 30 MG Delayed Release Oral Capsule Duloxeti ne HCl 30 MG Duloxetine HCl 30 MG 05/19/2020 12:00:00 AM EST 1.0 {capsule} a ctive Duloxetine HCl 30 MG eCW1 ([facility]) duloxetine 30 MG Delayed Release Oral Capsule Duloxeti ne HCl 30 MG Duloxetine HCl 30 MG 05/19/2020 12:00:00 AM EST 1.0 {capsule} a ctive Duloxetine HCl 30 MG eCW1 ([facility]) duloxetine 30 MG Delayed Release Oral Capsule Duloxeti ne HCl 30 MG Duloxetine HCl 30 MG 05/19/2020 12:00:00 AM EST 1.0 {capsule} a ctive Duloxetine HCl 30 MG eCW1 ([facility]) 10 mg 05/19/2020 12:00:00 AM EST [...] a ctive Duloxetine HCl 30 MG eCW1 ([facility]) duloxetine 30 MG Delayed Release Oral Capsule Duloxeti ne HCl 30 MG Duloxetine HCl 30 MG 05/19/2020 12:00:00 AM EST 1.0 {capsule} a ctive Duloxetine HCl 30 MG eCW1 ([facility]) duloxetine 30 MG Delayed Release Oral Capsule Duloxeti ne HCl 30 MG Duloxetine HCl 30 MG 05/19/2020 12:00:00 AM EST 1.0 {capsule} a ctive Duloxetine HCl 30 MG eCW1 ([facility]) 50 mg 05/14/2020 12:00:00 AM EST [...] {tablet} active Te lmisartan 20 MG eCW1 ([facility]) telmisartan 20 MG Oral Tablet Telmisartan 20 MG Telmisartan 20 MG 05/01/2020 12:00:00 AM EST active Telmisar freed 20 MG eCW1 ([facility]) telmisartan 20 MG Oral Tablet Telmisartan 20 MG Telmisartan 20 MG 05/01/2020 12:00:00 AM EST 1.0 {tablet} active Te lmisartan 20 MG eCW1 ([facility]) telmisartan 20 MG Oral Tablet Telmisartan 20 MG Telmisartan 20 MG 05/01/2020 12:00:00 AM EST 1.0 {tablet} active Te lmisartan 20 MG eCW1 ([facility]) telmisartan 20 MG Oral Tablet Telmisartan 20 MG Telmisartan 20 MG 05/01/2020 12:00:00 AM EST 1.0 {tablet} active Te lmisartan 20 MG eCW1 ([facility]) telmisartan 20 MG Oral Tablet Telmisartan 20 MG Telmisartan 20 MG 05/01/2020 12:00:00 AM EST active Telmisar freed 20 MG eCW1 ([facility]) telmisartan 20 MG Oral Tablet Telmisartan 20 MG Telmisartan 20 MG 05/01/2020 12:00:00 AM EST 1.0 {tablet} active Te lmisartan 20 MG eCW1 ([facility]) telmisartan 20 MG Oral Tablet Telmisartan 20 MG Telmisartan 20 MG 05/01/2020 12:00:00 AM EST 1.0 {tablet} active Te lmisartan 20 MG eCW1 ([facility]) carvedilol 12.5 MG Oral Tablet CARVEDILOL 05/01/2020 12:00:00 AM EST tablet 180 TAKE ONE TABLET BY MOUTH TWICE A DAY WITH FOOD TAKE ON E TABLET BY MOUTH TWICE A DAY WITH FOOD SOLD: 08/01/2020 [facility] telmisartan 20 MG Oral Tablet Telmisartan 20 MG Telmisartan 20 MG 05/01/2020 12:00:00 AM EST 1.0 {tablet} active Te lmisartan 20 MG eCW1 ([facility]) telmisartan 20 MG Oral Tablet TELMISARTAN [...] EST active Telmisar freed 20 MG eCW1 ([facility]) telmisartan 20 MG Oral Tablet Telmisartan 20 MG Telmisartan 20 MG 05/01/2020 12:00:00 AM EST active Telmisar freed 20 MG eCW1 ([facility]) telmisartan 20 MG Oral Tablet Telmisartan 20 MG Telmisartan 20 MG 05/01/2020 12:00:00 AM EST 1.0 {tablet} active Te lmisartan 20 MG eCW1 ([facility]) 20 mg 05/01/2020 12:00:00 AM EST tablet 10 TAKE ONE TABLET BY MOUTH TWICE A DAY TAKE ONE TABLET BY MOUTH TWICE A DAY SOLD: 05/01/2020 [facility] telmisartan 20 MG Oral Tablet Telmisartan 20 MG Telmisartan 20 MG 05/01/2020 12:00:00 AM EST 1.0 {tablet} active Te lmisartan 20 MG eCW1 ([facility]) carvedilol 12.5 MG Oral Tablet CARVEDILOL [...] {tablet} active Te lmisartan 20 MG eCW1 ([facility]) telmisartan 20 MG Oral Tablet TELMISARTAN 05/01/2020 12:00:00 AM EST tablet 30 TAKE 1/2 TABLET BY MOUTH TWO TIMES A DAY TAKE 1/2 TABL ET BY MOUTH TWO TIMES A DAY SOLD: 05/01/2020 [facility] telmisartan 20 MG Oral Tablet Telmisartan 20 MG Telmisartan 20 MG 05/01/2020 12:00:00 AM EST active Telmisar freed 20 MG eCW1 ([facility]) telmisartan 20 MG Oral Tablet Telmisartan 20 MG Telmisartan 20 MG 05/01/2020 12:00:00 AM EST 1.0 {tablet} active Te lmisartan 20 MG eCW1 ([facility]) telmisartan 20 MG Oral Tablet Telmisartan 20 MG Telmisartan 20 MG 05/01/2020 12:00:00 AM EST 1.0 {tablet} active Te lmisartan 20 MG eCW1 ([facility]) telmisartan 20 MG Oral Tablet Telmisartan 20 MG Telmisartan 20 MG 05/01/2020 12:00:00 AM EST 1.0 {tablet} active Te lmisartan 20 MG eCW1 ([facility]) Nebulizer/Tubing/Mouthpiece - Nebulizer/Tubing/Mouthpiece - 04/21/2020 12:00:00 AM EST active Nebulizer/Tubing/ Mouthpiece - eCW1 ([facility]) Nebulizer - Nebulizer - 04/21/2020 12:00:00 AM EST active Nebulizer - eCW1 ([facility]) Nebulizer - Nebulizer - 04/21/2020 12:00:00 AM EST active Nebulizer - eCW1 ([facility]) Nebulizer/Tubing/Mouthpiece - Nebulizer/Tubing/Mouthpiece - 04/21/2020 12:00:00 AM EST active Nebulizer/Tubing/ Mouthpiece - eCW1 ([facility]) Nebulizer - Nebulizer - 04/21/2020 12:00:00 AM EST active Nebulizer - eCW1 ([facility]) Nebulizer - Nebulizer - 04/21/2020 12:00:00 AM EST active Nebulizer - eCW1 ([facility]) Nebulizer/Tubing/Mouthpiece - Nebulizer/Tubing/Mouthpiece - 04/21/2020 12:00:00 AM EST active Nebulizer/Tubing/ Mouthpiece - eCW1 ([facility]) Albuterol 0.83 MG/ML Inhalant Solution Albuterol Sulfa te (2.5 MG/3ML) 0.083% Albuterol Sulfate (2.5 MG/3ML) 0.083% 04/21/2020 12:00:00 AM EST 3.0 {ml_as_needed} active Albuterol Sulfate (2.5 MG/3ML) 0.083% eCW1 ([facility]) Nebulizer/Tubing/Mouthpiece - Nebulizer/Tubing/Mouthpiece - 04/21/2020 12:00:00 AM EST active Nebulizer/Tubing/ Mouthpiece - eCW1 ([facility]) Nebulizer - Nebulizer - 04/21/2020 12:00:00 AM EST active Nebulizer - eCW1 ([facility]) Albuterol 0.83 MG/ML Inhalant Solution Albuterol Sulfa te (2.5 MG/3ML) 0.083% Albuterol Sulfate (2.5 MG/3ML) 0.083% 04/21/2020 12:00:00 AM EST 3.0 {ml_as_needed} active Albuterol Sulfate (2.5 MG/3ML) 0.083% eCW1 ([facility]) Nebulizer - Nebulizer - 04/21/2020 12:00:00 AM EST active eCW1 ([facility]) Nebulizer - Nebulizer - 04/21/2020 12:00:00 AM EST active Nebulizer - eCW1 ([facility]) NEBULIZER AND COMPRESSOR 04/21/2020 12:00:00 AM EST device 1 USE DIRECTED USE DIRECTED SOLD: 04/21/2020 [facility] Nebulizer - Nebulizer - 04/21/2020 12:00:00 AM EST active Nebulizer - eCW1 ([facility]) Albuterol 0.83 MG/ML Inhalant Solution Albuterol Sulfa te (2.5 MG/3ML) 0.083% Albuterol Sulfate (2.5 MG/3ML) 0.083% 04/21/2020 12:00:00 AM EST 3.0 {ml_as_needed} active eCW1 (On license of [facility]) Nebulizer - Nebulizer - 04/21/2020 12:00:00 AM EST active Nebulizer - eCW1 ([facility]) Nebulizer - Nebulizer - 04/21/2020 12:00:00 AM EST active Nebulizer - eCW1 ([facility]) Albuterol 0.83 MG/ML Inhalant Solution Albuterol Sulfa te (2.5 MG/3ML) 0.083% Albuterol Sulfate (2.5 MG/3ML) 0.083% 04/21/2020 12:00:00 AM EST 3.0 {ml_as_needed} active eCW1 (On [facility] of [facility]) Albuterol 0.83 MG/ML Inhalant Solution Albuterol Sulfa te (2.5 MG/3ML) 0.083% Albuterol Sulfate (2.5 MG/3ML) 0.083% 04/21/2020 12:00:00 AM EST 3.0 {ml_as_needed} active Albuterol Sulfate (2.5 MG/3ML) 0.083% W1 ([facility]) Nebulizer - Nebulizer - 04/21/2020 12:00:00 AM EST active Nebulizer - eCW1 ([facility]) Nebulizer/Tubing/Mouthpiece - Nebulizer/Tubing/Mouthpiece - 04/21/2020 12:00:00 AM EST active Nebulizer/Tubing/ Mouthpiece - eCW1 ([facility]) Nebulizer/Tubing/Mouthpiece - Nebulizer/Tubing/Mouthpiece - 04/21/2020 12:00:00 AM EST active Nebulizer/Tubing/ Mouthpiece - eCW1 ([facility]) Nebulizer/Tubing/Mouthpiece - Nebulizer/Tubing/Mouthpiece - 04/21/2020 12:00:00 AM EST active Nebulizer/Tubing/ Mouthpiece - eCW1 ([facility]) Nebulizer/Tubing/Mouthpiece - Nebulizer/Tubing/Mouthpiece - 04/21/2020 12:00:00 AM EST active Nebulizer/Tubing/ Mouthpiece - eCW1 ([facility]) Nebulizer/Tubing/Mouthpiece - Nebulizer/Tubing/Mouthpiece - 04/21/2020 12:00:00 AM EST active Nebulizer/Tubing/ Mouthpiece - eCW1 ([facility]) Albuterol 0.83 MG/ML Inhalant Solution Albuterol Sulfa te (2.5 MG/3ML) 0.083% Albuterol Sulfate (2.5 MG/3ML) 0.083% 04/21/2020 12:00:00 AM EST 3.0 {ml_as_needed} active Albuterol Sulfate (2.5 MG/3ML) 0.083% eCW1 [facility]) Albuterol 0.83 MG/ML Inhalant Solution Albuterol Sulfa te (2.5 MG/3ML) 0.083% Albuterol Sulfate (2.5 MG/3ML) 0.083% 04/21/2020 12:00:00 AM EST 3.0 {ml_as_needed} active Albuterol Sulfate (2.5 MG/3ML) 0.083% eCW1 [facility]) Albuterol 0.83 MG/ML Inhalant Solution Albuterol Sulfa te (2.5 MG/3ML) 0.083% Albuterol Sulfate (2.5 MG/3ML) 0.083% 04/21/2020 12:00:00 AM EST 3.0 {ml_as_needed} active Albuterol Sulfate (2.5 MG/3ML) 0.083% eCW1 ([facility]) Nebulizer - Nebulizer - 04/21/2020 12:00:00 AM EST active Nebulizer - eCW1 ([facility]) Nebulizer - Nebulizer - 04/21/2020 12:00:00 AM EST active Nebulizer - eCW1 ([facility]) Nebulizer/Tubing/Mouthpiece - Nebulizer/Tubing/Mouthpiece - 04/21/2020 12:00:00 AM EST active eCW1 ([facility]) Nebulizer - Nebulizer - 04/21/2020 12:00:00 AM EST active Nebulizer - eCW1 ([facility]) Albuterol 0.83 MG/ML Inhalant Solution Albuterol Sulfa te (2.5 MG/3ML) 0.083% Albuterol Sulfate (2.5 MG/3ML) 0.083% 04/21/2020 12:00:00 AM EST 3.0 {ml_as_needed} active Albuterol Sulfate (2.5 MG/3ML) 0.083% eCW1 [facility] Nebulizer/Tubing/Mouthpiece - Nebulizer/Tubing/Mouthpiece - 04/21/2020 12:00:00 AM EST active Nebulizer/Tubing/ Mouthpiece - eCW1 ([facility]) Nebulizer/Tubing/Mouthpiece - Nebulizer/Tubing/Mouthpiece - 04/21/2020 12:00:00 AM EST active Nebulizer/Tubing/ Mouthpiece - eCW1 ([facility]) Albuterol 0.83 MG/ML Inhalant Solution Albuterol Sulfa te (2.5 MG/3ML) 0.083% Albuterol Sulfate (2.5 MG/3ML) 0.083% 04/21/2020 12:00:00 AM EST 3.0 {ml_as_needed} active Albuterol Sulfate (2.5 MG/3ML) 0.083% eCW1 ([facility]) Nebulizer - Nebulizer - 04/21/2020 12:00:00 AM EST active Nebulizer - eCW1 ([facility]) Albuterol 0.83 MG/ML Inhalant Solution Albuterol Sulfa te (2.5 MG/3ML) 0.083% Albuterol Sulfate (2.5 MG/3ML) 0.083% 04/21/2020 12:00:00 AM EST 3.0 {ml_as_needed} active Albuterol Sulfate (2.5 MG/3ML) 0.083% eCW1 ([facility]) Albuterol 0.83 MG/ML Inhalant Solution Albuterol Sulfa te (2.5 MG/3ML) 0.083% Albuterol Sulfate (2.5 MG/3ML) 0.083% 04/21/2020 12:00:00 AM EST 3.0 {ml_as_needed} active Albuterol Sulfate (2.5 MG/3ML) 0.083% eCW1 ([facility]) Nebulizer/Tubing/Mouthpiece - Nebulizer/Tubing/Mouthpiece - 04/21/2020 12:00:00 AM EST active Nebulizer/Tubing/ Mouthpiece - eCW1 ([facility]) Nebulizer/Tubing/Mouthpiece - Nebulizer/Tubing/Mouthpiece - 04/21/2020 12:00:00 AM EST active Nebulizer/Tubing/ Mouthpiece - eCW1 ([facility]) Nebulizer/Tubing/Mouthpiece - Nebulizer/Tubing/Mouthpiece - 04/21/2020 12:00:00 AM EST active Nebulizer/Tubing/ Mouthpiece - eCW1 ([facility]) Nebulizer/Tubing/Mouthpiece - Nebulizer/Tubing/Mouthpiece - 04/21/2020 12:00:00 AM EST active Nebulizer/Tubing/ Mouthpiece - eCW1 ([facility]) Nebulizer/Tubing/Mouthpiece - Nebulizer/Tubing/Mouthpiece - 04/21/2020 12:00:00 AM EST active Nebulizer/Tubing/ Mouthpiece - eCW1 ([facility]) Nebulizer/Tubing/Mouthpiece - Nebulizer/Tubing/Mouthpiece - 04/21/2020 12:00:00 AM EST active Nebulizer/Tubing/ Mouthpiece - eCW1 ([facility]) Albuterol 0.83 MG/ML Inhalant Solution Albuterol Sulfa te (2.5 MG/3ML) 0.083% Albuterol Sulfate (2.5 MG/3ML) 0.083% 04/21/2020 12:00:00 AM EST 3.0 {ml_as_needed} active Albuterol Sulfate (2.5 MG/3ML) 0.083% eCW1 [facility]) Albuterol 0.83 MG/ML Inhalant Solution Albuterol Sulfa te (2.5 MG/3ML) 0.083% Albuterol Sulfate (2.5 MG/3ML) 0.083% 04/21/2020 12:00:00 AM EST 3.0 {ml_as_needed} active Albuterol Sulfate (2.5 MG/3ML) 0.083% eCW1 ([facility]) Nebulizer - Nebulizer - 04/21/2020 12:00:00 AM EST active Nebulizer - eCW1 ([facility]) Albuterol 0.83 MG/ML Inhalant Solution Albuterol Sulfa te (2.5 MG/3ML) 0.083% Albuterol Sulfate (2.5 MG/3ML) 0.083% 04/21/2020 12:00:00 AM EST 3.0 {ml_as_needed} active Albuterol Sulfate (2.5 MG/3ML) 0.083% eCW1 ([facility]) Nebulizer - Nebulizer - 04/21/2020 12:00:00 AM EST active Nebulizer - eCW1 ([facility]) Nebulizer - Nebulizer - 04/21/2020 12:00:00 AM EST active Nebulizer - eCW1 ([facility]) Albuterol 0.83 MG/ML Inhalant Solution Albuterol Sulfa te (2.5 MG/3ML) 0.083% Albuterol Sulfate (2.5 MG/3ML) 0.083% 04/21/2020 12:00:00 AM EST 3.0 {ml_as_needed} active Albuterol Sulfate (2.5 MG/3ML) 0.083% W1 ([facility]) Nebulizer - Nebulizer - 04/21/2020 12:00:00 AM EST active Nebulizer - eCW1 ([facility]) Nebulizer/Tubing/Mouthpiece - Nebulizer/Tubing/Mouthpiece - 04/21/2020 12:00:00 AM EST active Nebulizer/Tubing/ Mouthpiece - eCW1 ([facility]) Nebulizer/Tubing/Mouthpiece - Nebulizer/Tubing/Mouthpiece - 04/21/2020 12:00:00 AM EST active Nebulizer/Tubing/ Mouthpiece - eCW1 ([facility]) Nebulizer - Nebulizer - 04/21/2020 12:00:00 AM EST active Nebulizer - eCW1 ([facility]) Nebulizer - Nebulizer - 04/21/2020 12:00:00 AM EST active Nebulizer - eCW1 ([facility]) Albuterol 0.83 MG/ML Inhalant Solution Albuterol Sulfa te (2.5 MG/3ML) 0.083% Albuterol Sulfate (2.5 MG/3ML) 0.083% 04/21/2020 12:00:00 AM EST 3.0 {ml_as_needed} active Albuterol Sulfate (2.5 MG/3ML) 0.083% [facility]CW[facility] ([facility]) Albuterol 0.83 MG/ML Inhalant Solution Albuterol Sulfa te (2.5 MG/3ML) 0.083% Albuterol Sulfate (2.5 MG/3ML) 0.083% 04/21/2020 12:00:00 AM EST 3.0 {ml_as_needed} active Albuterol Sulfate (2.5 MG/3ML) 0.083% [email or web address] ([facility]) Nebulizer/Tubing/Mouthpiece - Nebulizer/Tubing/Mouthpiece - 04/21/2020 12:00:00 AM EST active Nebulizer/Tubing/ Mouthpiece - [email or web address] ([facility]) Albuterol 0.83 MG/ML Inhalant Solution Albuterol Sulfa te (2.5 MG/3ML) 0.083% Albuterol Sulfate (2.5 MG/3ML) 0.083% 04/21/2020 12:00:00 AM EST 3.0 {ml_as_needed} active Albuterol Sulfate (2.5 MG/3ML) 0.083% eCW[facility] ([facility]) Albuterol 0.83 MG/ML Inhalant Solution Albuterol Sulfa te (2.5 MG/3ML) 0.083% Albuterol Sulfate (2.5 MG/3ML) 0.083% 04/21/2020 12:00:00 AM EST 3.0 {ml_as_needed} active Albuterol Sulfate (2.5 MG/3ML) 0.083% [facility] Albuterol 0.83 MG/ML Inhalant Solution Albuterol Sulfa te (2.5 MG/3ML) 0.083% Albuterol Sulfate (2.5 MG/3ML) 0.083% 04/21/2020 12:00:00 AM EST 3.0 {ml_as_needed} active Albuterol Sulfate (2.5 MG/3ML) 0.083% [facility] Albuterol 0.83 MG/ML Inhalant Solution Albuterol Sulfa te (2.5 MG/3ML) 0.083% Albuterol Sulfate (2.5 MG/3ML) 0.083% 04/21/2020 12:00:00 AM EST 3.0 {ml_as_needed} active eCW1 (On license of [facility]) Nebulizer - Nebulizer - 04/21/2020 12:00:00 AM EST active Nebulizer - [facility]CW[facility]) Nebulizer - Nebulizer - 04/21/2020 12:00:00 AM EST active Nebulizer - eCW1 ([facility]) Nebulizer - Nebulizer - 04/21/2020 12:00:00 AM EST active Nebulizer - [facility]CW1 [facility]) Albuterol 0.83 MG/ML Inhalant Solution Albuterol Sulfa te (2.5 MG/3ML) 0.083% Albuterol Sulfate (2.5 MG/3ML) 0.083% 04/21/2020 12:00:00 AM EST 3.0 {ml_as_needed} active Albuterol Sulfate (2.5 MG/3ML) 0.083% W1 ([facility]) Nebulizer/Tubing/Mouthpiece - Nebulizer/Tubing/Mouthpiece - 04/21/2020 12:00:00 AM EST active Nebulizer/Tubing/ Mouthpiece - eCW1 [facility]) Albuterol 0.83 MG/ML Inhalant Solution Albuterol Sulfa te (2.5 MG/3ML) 0.083% Albuterol Sulfate (2.5 MG/3ML) 0.083% 04/21/2020 12:00:00 AM EST 3.0 {ml_as_needed} active eCW1 (On license of [facility]) Albuterol 0.83 MG/ML Inhalant Solution Albuterol Sulfa te (2.5 MG/3ML) 0.083% Albuterol Sulfate (2.5 MG/3ML) 0.083% 04/21/2020 12:00:00 AM EST 3.0 {ml_as_needed} active Albuterol Sulfate (2.5 MG/3ML) 0.083% [facility]CW[facility] Nebulizer/Tubing/Mouthpiece - Nebulizer/Tubing/Mouthpiece - 04/21/2020 12:00:00 AM EST active Nebulizer/Tubing/ Mouthpiece - eCW1 ([facility]) Nebulizer - Nebulizer - 04/21/2020 12:00:00 AM EST active Nebulizer - eCW1 ([facility]) Nebulizer/Tubing/Mouthpiece - Nebulizer/Tubing/Mouthpiece - 04/21/2020 12:00:00 AM EST active eCW1 ([facility]) Nebulizer/Tubing/Mouthpiece - Nebulizer/Tubing/Mouthpiece - 04/21/2020 12:00:00 AM EST active Nebulizer/Tubing/ Mouthpiece - eCW1 [facility]) Albuterol 0.83 MG/ML Inhalant Solution Albuterol Sulfa te (2.5 MG/3ML) 0.083% Albuterol Sulfate (2.5 MG/3ML) 0.083% 04/21/2020 12:00:00 AM EST 3.0 {ml_as_needed} active Albuterol Sulfate (2.5 MG/3ML) 0.083% eCW1 [facility]) Nebulizer - Nebulizer - 04/21/2020 12:00:00 AM EST active Nebulizer - eCW1 ([facility]) Nebulizer/Tubing/Mouthpiece - Nebulizer/Tubing/Mouthpiece - 04/21/2020 12:00:00 AM EST active Nebulizer/Tubing/ Mouthpiece - eCW1 ([facility]) Nebulizer - Nebulizer - 04/21/2020 12:00:00 AM EST active Nebulizer - eCW1 ([facility]) Nebulizer - Nebulizer - 04/21/2020 12:00:00 AM EST active Nebulizer - eCW1 ([facility]) Nebulizer - Nebulizer - 04/21/2020 12:00:00 AM EST active Nebulizer - eCW1 ([facility]) Nebulizer/Tubing/Mouthpiece - Nebulizer/Tubing/Mouthpiece - 04/21/2020 12:00:00 AM EST active Nebulizer/Tubing/ Mouthpiece - eCW1 [facility]) Albuterol 0.83 MG/ML Inhalant Solution Albuterol Sulfa te (2.5 MG/3ML) 0.083% Albuterol Sulfate (2.5 MG/3ML) 0.083% 04/21/2020 12:00:00 AM EST 3.0 {ml_as_needed} active Albuterol Sulfate (2.5 MG/3ML) 0.083% eCW1 [facility] Albuterol 0.83 MG/ML Inhalant Solution Albuterol Sulfa te (2.5 MG/3ML) 0.083% Albuterol Sulfate (2.5 MG/3ML) 0.083% 04/21/2020 12:00:00 AM EST 3.0 {ml_as_needed} active Albuterol Sulfate (2.5 MG/3ML) 0.083% eCW1 [facility]) Nebulizer - Nebulizer - 04/21/2020 12:00:00 AM EST active eCW1 [facility]) Nebulizer - Nebulizer - 04/21/2020 12:00:00 AM EST active Nebulizer - eCW1 ([facility]) Nebulizer/Tubing/Mouthpiece - Nebulizer/Tubing/Mouthpiece - 04/21/2020 12:00:00 AM EST active Nebulizer/Tubing/ Mouthpiece - eCW1 ([facility]) Nebulizer/Tubing/Mouthpiece - Nebulizer/Tubing/Mouthpiece - 04/21/2020 12:00:00 AM EST active Nebulizer/Tubing/ Mouthpiece - eCW1 ([facility]) Nebulizer/Tubing/Mouthpiece - Nebulizer/Tubing/Mouthpiece - 04/21/2020 12:00:00 AM EST active Nebulizer/Tubing/ Mouthpiece - eCW1 [facility]) Albuterol 0.83 MG/ML Inhalant Solution Albuterol Sulfa te (2.5 MG/3ML) 0.083% Albuterol Sulfate (2.5 MG/3ML) 0.083% 04/21/2020 12:00:00 AM EST 3.0 {ml_as_needed} active Albuterol Sulfate (2.5 MG/3ML) 0.083% eCW1 [facility]) Nebulizer - Nebulizer - 04/21/2020 12:00:00 AM EST active Nebulizer - eCW1 ([facility]) Albuterol 0.83 MG/ML Inhalant Solution Albuterol Sulfa te (2.5 MG/3ML) 0.083% Albuterol Sulfate (2.5 MG/3ML) 0.083% 04/21/2020 12:00:00 AM EST 3.0 {ml_as_needed} active Albuterol Sulfate (2.5 MG/3ML) 0.083% eCW1 [facility] Albuterol 0.83 MG/ML Inhalant Solution Albuterol Sulfa te (2.5 MG/3ML) 0.083% Albuterol Sulfate (2.5 MG/3ML) 0.083% 04/21/2020 12:00:00 AM EST 3.0 {ml_as_needed} active Albuterol Sulfate (2.5 MG/3ML) 0.083% eCW1 [facility] Albuterol 0.83 MG/ML Inhalant Solution Albuterol Sulfa te (2.5 MG/3ML) 0.083% Albuterol Sulfate (2.5 MG/3ML) 0.083% 04/21/2020 12:00:00 AM EST 3.0 {ml_as_needed} active Albuterol Sulfate (2.5 MG/3ML) 0.083% eCW1 [facility]) Nebulizer/Tubing/Mouthpiece - Nebulizer/Tubing/Mouthpiece - 04/21/2020 12:00:00 AM EST active Nebulizer/Tubing/ Mouthpiece - eCW1 ([facility]) Nebulizer - Nebulizer - 04/21/2020 12:00:00 AM EST active Nebulizer - eCW1 ([facility]) Nebulizer/Tubing/Mouthpiece - Nebulizer/Tubing/Mouthpiece - 04/21/2020 12:00:00 AM EST active Nebulizer/Tubing/ Mouthpiece - eCW1 ([facility]) Nebulizer - Nebulizer - 04/21/2020 12:00:00 AM EST active Nebulizer - eCW1 ([facility]) Nebulizer - Nebulizer - 04/21/2020 12:00:00 AM EST active Nebulizer - eCW1 [facility]) Albuterol 0.83 MG/ML Inhalant Solution Albuterol Sulfa te (2.5 MG/3ML) 0.083% Albuterol Sulfate (2.5 MG/3ML) 0.083% 04/21/2020 12:00:00 AM EST 3.0 {ml_as_needed} active Albuterol Sulfate (2.5 MG/3ML) 0.083% eCW1 [facility]) Nebulizer/Tubing/Mouthpiece - Nebulizer/Tubing/Mouthpiece - 04/21/2020 12:00:00 AM EST active Nebulizer/Tubing/ Mouthpiece - eCW1 ([facility]) Nebulizer/Tubing/Mouthpiece - Nebulizer/Tubing/Mouthpiece - 04/21/2020 12:00:00 AM EST active Nebulizer/Tubing/ Mouthpiece - eCW1 ([facility]) Nebulizer - Nebulizer - 04/21/2020 12:00:00 AM EST active Nebulizer - eCW1 ([facility]) Albuterol 0.83 MG/ML Inhalant Solution Albuterol Sulfa te (2.5 MG/3ML) 0.083% Albuterol Sulfate (2.5 MG/3ML) 0.083% 04/21/2020 12:00:00 AM EST 3.0 {ml_as_needed} active Albuterol Sulfate (2.5 MG/3ML) 0.083% eCW1 [facility] Nebulizer/Tubing/Mouthpiece - Nebulizer/Tubing/Mouthpiece - 04/21/2020 12:00:00 AM EST active Nebulizer/Tubing/ Mouthpiece - eCW1 [facility]) Nebulizer/Tubing/Mouthpiece - Nebulizer/Tubing/Mouthpiece - 04/21/2020 12:00:00 AM EST active eCW1 ([facility]) Nebulizer/Tubing/Mouthpiece - Nebulizer/Tubing/Mouthpiece - 04/21/2020 12:00:00 AM EST active Nebulizer/Tubing/ Mouthpiece - eCW1 [facility]) Albuterol 0.83 MG/ML Inhalant Solution Albuterol Sulfa te (2.5 MG/3ML) 0.083% Albuterol Sulfate (2.5 MG/3ML) 0.083% 04/21/2020 12:00:00 AM EST 3.0 {ml_as_needed} active Albuterol Sulfate (2.5 MG/3ML) 0.083% eCW1 [facility]) Nebulizer - Nebulizer - 04/21/2020 12:00:00 AM EST active Nebulizer - eCW1 ([facility]) Nebulizer - Nebulizer - 04/21/2020 12:00:00 AM EST active Nebulizer - eCW1 ([facility]) Nebulizer - Nebulizer - 04/21/2020 12:00:00 AM EST active Nebulizer - eCW1 ([facility]) Nebulizer - Nebulizer - 04/21/2020 12:00:00 AM EST active eCW1 [facility]) Albuterol 0.83 MG/ML Inhalant Solution Albuterol Sulfa te (2.5 MG/3ML) 0.083% Albuterol Sulfate (2.5 MG/3ML) 0.083% 04/21/2020 12:00:00 AM EST 3.0 {ml_as_needed} active Albuterol Sulfate (2.5 MG/3ML) 0.083% eCW1 [facility] Albuterol 0.83 MG/ML Inhalant Solution Albuterol Sulfa te (2.5 MG/3ML) 0.083% Albuterol Sulfate (2.5 MG/3ML) 0.083% 04/21/2020 12:00:00 AM EST 3.0 {ml_as_needed} active Albuterol Sulfate (2.5 MG/3ML) 0.083% eCW1 [facility] Nebulizer/Tubing/Mouthpiece - Nebulizer/Tubing/Mouthpiece - 04/21/2020 12:00:00 AM EST active Nebulizer/Tubing/ Mouthpiece - eCW1 ([facility]) Nebulizer/Tubing/Mouthpiece - Nebulizer/Tubing/Mouthpiece - 04/21/2020 12:00:00 AM EST active Nebulizer/Tubing/ Mouthpiece - eCW1 ([facility]) Amlodipine 2.5 MG Oral Tablet AmLODIPine Besylate 2.5 MG AmLODIPine Besylate 2.5 MG 04/21/2020 12:00:00 AM EST active AmLODIPine Besylate 2.5 MG eCW1 ([facility]) Nebulizer - Nebulizer - 04/21/2020 12:00:00 AM EST active Nebulizer - eCW1 ([facility]) Albuterol 0.83 MG/ML Inhalant Solution Albuterol Sulfa te (2.5 MG/3ML) 0.083% Albuterol Sulfate (2.5 MG/3ML) 0.083% 04/21/2020 12:00:00 AM EST 3.0 {ml_as_needed} active Albuterol Sulfate (2.5 MG/3ML) 0.083% eCW1 [facility]) Nebulizer - Nebulizer - 04/21/2020 12:00:00 AM EST active Nebulizer - eCW1 ([facility]) Nebulizer - Nebulizer - 04/21/2020 12:00:00 AM EST active Nebulizer - eCW1 ([facility]) Nebulizer/Tubing/Mouthpiece - Nebulizer/Tubing/Mouthpiece - 04/21/2020 12:00:00 AM EST active Nebulizer/Tubing/ Mouthpiece - eCW1 ([facility]) Nebulizer - Nebulizer - 04/21/2020 12:00:00 AM EST active Nebulizer - eCW1 ([facility]) Nebulizer/Tubing/Mouthpiece - Nebulizer/Tubing/Mouthpiece - 04/21/2020 12:00:00 AM EST active Nebulizer/Tubing/ Mouthpiece - eCW1 ([facility]) Nebulizer - Nebulizer - 04/21/2020 12:00:00 AM EST active Nebulizer - eCW1 ([facility]) Nebulizer - Nebulizer - 04/21/2020 12:00:00 AM EST active Nebulizer - eCW1 ([facility]) Nebulizer/Tubing/Mouthpiece - Nebulizer/Tubing/Mouthpiece - 04/21/2020 12:00:00 AM EST active Nebulizer/Tubing/ Mouthpiece - eCW1 ([facility]) 2.5 mg /3 mL (0.083 %) 04/21/2020 12:00:00 AM EST solu tion for nebulization 300 INHALE ONE VIAL VIA NEBULIZER EVERY 6 HO URS NEEDED INHALE ONE VIAL VIA NEBULIZER EVERY 6 HOURS NEEDED SOLD: 04/21/2020 [facility] Nebulizer - Nebulizer - 04/21/2020 12:00:00 AM EST active Nebulizer - eCW1 ([facility]) Nebulizer - Nebulizer - 04/21/2020 12:00:00 AM EST active Nebulizer - eCW1 ([facility]) Nebulizer/Tubing/Mouthpiece - Nebulizer/Tubing/Mouthpiece - 04/21/2020 12:00:00 AM EST active Nebulizer/Tubing/ Mouthpiece - eCW1 ([facility]) Albuterol 0.83 MG/ML Inhalant Solution Albuterol Sulfa te (2.5 MG/3ML) 0.083% Albuterol Sulfate (2.5 MG/3ML) 0.083% 04/21/2020 12:00:00 AM EST 3.0 {ml_as_needed} active Albuterol Sulfate (2.5 MG/3ML) 0.083% eCW1 [facility]) Nebulizer - Nebulizer - 04/21/2020 12:00:00 AM EST active Nebulizer - eCW1 ([facility]) Nebulizer/Tubing/Mouthpiece - Nebulizer/Tubing/Mouthpiece - 04/21/2020 12:00:00 AM EST active Nebulizer/Tubing/ Mouthpiece - eCW1 ([facility]) Nebulizer/Tubing/Mouthpiece - Nebulizer/Tubing/Mouthpiece - 04/21/2020 12:00:00 AM EST active Nebulizer/Tubing/ Mouthpiece - eCW1 ([facility]) Nebulizer - Nebulizer - 04/21/2020 12:00:00 AM EST active Nebulizer - eCW1 ([facility]) Albuterol 0.83 MG/ML Inhalant Solution Albuterol Sulfa te (2.5 MG/3ML) 0.083% Albuterol Sulfate (2.5 MG/3ML) 0.083% 04/21/2020 12:00:00 AM EST 3.0 {ml_as_needed} active Albuterol Sulfate (2.5 MG/3ML) 0.083% W1 ([facility]) Nebulizer - Nebulizer - 04/21/2020 12:00:00 AM EST active Nebulizer - eCW1 ([facility]) Albuterol 0.83 MG/ML Inhalant Solution Albuterol Sulfa te (2.5 MG/3ML) 0.083% Albuterol Sulfate (2.5 MG/3ML) 0.083% 04/21/2020 12:00:00 AM EST 3.0 {ml_as_needed} active Albuterol Sulfate (2.5 MG/3ML) 0.083% W1 ([facility]) Albuterol 0.83 MG/ML Inhalant Solution Albuterol Sulfa te (2.5 MG/3ML) 0.083% Albuterol Sulfate (2.5 MG/3ML) 0.083% 04/21/2020 12:00:00 AM EST 3.0 {ml_as_needed} active Albuterol Sulfate (2.5 MG/3ML) 0.083% eCW1 [facility] Albuterol 0.83 MG/ML Inhalant Solution Albuterol Sulfa te (2.5 MG/3ML) 0.083% Albuterol Sulfate (2.5 MG/3ML) 0.083% 04/21/2020 12:00:00 AM EST 3.0 {ml_as_needed} active Albuterol Sulfate (2.5 MG/3ML) 0.083% eCW1 [facility] Nebulizer/Tubing/Mouthpiece - Nebulizer/Tubing/Mouthpiece - 04/21/2020 12:00:00 AM EST active Nebulizer/Tubing/ Mouthpiece - eCW1 ([facility]) Nebulizer/Tubing/Mouthpiece - Nebulizer/Tubing/Mouthpiece - 04/21/2020 12:00:00 AM EST active Nebulizer/Tubing/ Mouthpiece - eCW1 ([facility]) Albuterol 0.83 MG/ML Inhalant Solution Albuterol Sulfa te (2.5 MG/3ML) 0.083% Albuterol Sulfate (2.5 MG/3ML) 0.083% 04/21/2020 12:00:00 AM EST 3.0 {ml_as_needed} active Albuterol Sulfate (2.5 MG/3ML) 0.083% eCW1 [facility] Albuterol 0.83 MG/ML Inhalant Solution Albuterol Sulfa te (2.5 MG/3ML) 0.083% Albuterol Sulfate (2.5 MG/3ML) 0.083% 04/21/2020 12:00:00 AM EST 3.0 {ml_as_needed} active Albuterol Sulfate (2.5 MG/3ML) 0.083% W1 ([facility]) Nebulizer/Tubing/Mouthpiece - Nebulizer/Tubing/Mouthpiece - 04/21/2020 12:00:00 AM EST active Nebulizer/Tubing/ Mouthpiece - eCW1 ([facility]) Albuterol 0.83 MG/ML Inhalant Solution Albuterol Sulfa te (2.5 MG/3ML) 0.083% Albuterol Sulfate (2.5 MG/3ML) 0.083% 04/21/2020 12:00:00 AM EST 3.0 {ml_as_needed} active Albuterol Sulfate (2.5 MG/3ML) 0.083% eCW1 [facility] Nebulizer/Tubing/Mouthpiece - Nebulizer/Tubing/Mouthpiece - 04/21/2020 12:00:00 AM EST active Nebulizer/Tubing/ Mouthpiece - eCW1 ([facility]) Albuterol 0.83 MG/ML Inhalant Solution Albuterol Sulfa te (2.5 MG/3ML) 0.083% Albuterol Sulfate (2.5 MG/3ML) 0.083% 04/21/2020 12:00:00 AM EST 3.0 {ml_as_needed} active Albuterol Sulfate (2.5 MG/3ML) 0.083% eCW1 [facility] Nebulizer/Tubing/Mouthpiece - Nebulizer/Tubing/Mouthpiece - 04/21/2020 12:00:00 AM EST active Nebulizer/Tubing/ Mouthpiece - eCW1 ([facility]) Nebulizer - Nebulizer - 04/21/2020 12:00:00 AM EST active Nebulizer - eCW1 ([facility]) Nebulizer - Nebulizer - 04/21/2020 12:00:00 AM EST active Nebulizer - eCW1 ([facility]) Albuterol 0.83 MG/ML Inhalant Solution Albuterol Sulfa te (2.5 MG/3ML) 0.083% Albuterol Sulfate (2.5 MG/3ML) 0.083% 04/21/2020 12:00:00 AM EST 3.0 {ml_as_needed} active Albuterol Sulfate (2.5 MG/3ML) 0.083% eCW1 [facility] Nebulizer/Tubing/Mouthpiece - Nebulizer/Tubing/Mouthpiece - 04/21/2020 12:00:00 AM EST active Nebulizer/Tubing/ Mouthpiece - eCW1 ([facility]) Albuterol 0.83 MG/ML Inhalant Solution Albuterol Sulfa te (2.5 MG/3ML) 0.083% Albuterol Sulfate (2.5 MG/3ML) 0.083% 04/21/2020 12:00:00 AM EST 3.0 {ml_as_needed} active Albuterol Sulfate (2.5 MG/3ML) 0.083% eCW1 [facility]) Nebulizer - Nebulizer - 04/21/2020 12:00:00 AM EST active Nebulizer - eCW1 ([facility]) Nebulizer/Tubing/Mouthpiece - Nebulizer/Tubing/Mouthpiece - 04/21/2020 12:00:00 AM EST active Nebulizer/Tubing/ Mouthpiece - eCW1 ([facility]) Nebulizer/Tubing/Mouthpiece - Nebulizer/Tubing/Mouthpiece - 04/21/2020 12:00:00 AM EST active Nebulizer/Tubing/ Mouthpiece - eCW1 ([facility]) Nebulizer/Tubing/Mouthpiece - Nebulizer/Tubing/Mouthpiece - 04/21/2020 12:00:00 AM EST active Nebulizer/Tubing/ Mouthpiece - eCW1 [facility]) Albuterol 0.83 MG/ML Inhalant Solution Albuterol Sulfa te (2.5 MG/3ML) 0.083% Albuterol Sulfate (2.5 MG/3ML) 0.083% 04/21/2020 12:00:00 AM EST 3.0 {ml_as_needed} active Albuterol Sulfate (2.5 MG/3ML) 0.083% W1 ([facility] Nebulizer/Tubing/Mouthpiece - Nebulizer/Tubing/Mouthpiece - 04/21/2020 12:00:00 AM EST active Nebulizer/Tubing/ Mouthpiece - eCW1 ([facility]) Nebulizer - Nebulizer - 04/21/2020 12:00:00 AM EST active Nebulizer - eCW1 ([facility]) Nebulizer - Nebulizer - 04/21/2020 12:00:00 AM EST active Nebulizer - eCW1 ([facility]) Albuterol 0.83 MG/ML Inhalant Solution Albuterol Sulfa te (2.5 MG/3ML) 0.083% Albuterol Sulfate (2.5 MG/3ML) 0.083% 04/21/2020 12:00:00 AM EST 3.0 {ml_as_needed} active Albuterol Sulfate (2.5 MG/3ML) 0.083% eCW1 [facility] Albuterol 0.83 MG/ML Inhalant Solution Albuterol Sulfa te (2.5 MG/3ML) 0.083% Albuterol Sulfate (2.5 MG/3ML) 0.083% 04/21/2020 12:00:00 AM EST 3.0 {ml_as_needed} active Albuterol Sulfate (2.5 MG/3ML) 0.083% eCW1 [facility] Albuterol 0.83 MG/ML Inhalant Solution Albuterol Sulfa te (2.5 MG/3ML) 0.083% Albuterol Sulfate (2.5 MG/3ML) 0.083% 04/21/2020 12:00:00 AM EST 3.0 {ml_as_needed} active Albuterol Sulfate (2.5 MG/3ML) 0.083% eCW1 [facility]) Nebulizer - Nebulizer - 04/21/2020 12:00:00 AM EST active Nebulizer - eCW1 ([facility]) Nebulizer/Tubing/Mouthpiece - Nebulizer/Tubing/Mouthpiece - 04/21/2020 12:00:00 AM EST active Nebulizer/Tubing/ Mouthpiece - eCW1 ([facility]) Nebulizer/Tubing/Mouthpiece - Nebulizer/Tubing/Mouthpiece - 04/21/2020 12:00:00 AM EST active Nebulizer/Tubing/ Mouthpiece - eCW1 ([facility]) Nebulizer/Tubing/Mouthpiece - Nebulizer/Tubing/Mouthpiece - 04/21/2020 12:00:00 AM EST active Nebulizer/Tubing/ Mouthpiece - eCW1 ([facility]) Albuterol 0.83 MG/ML Inhalant Solution Albuterol Sulfa te (2.5 MG/3ML) 0.083% Albuterol Sulfate (2.5 MG/3ML) 0.083% 04/21/2020 12:00:00 AM EST 3.0 {ml_as_needed} active Albuterol Sulfate (2.5 MG/3ML) 0.083% eCW1 [facility] Albuterol 0.83 MG/ML Inhalant Solution Albuterol Sulfa te (2.5 MG/3ML) 0.083% Albuterol Sulfate (2.5 MG/3ML) 0.083% 04/21/2020 12:00:00 AM EST 3.0 {ml_as_needed} active Albuterol Sulfate (2.5 MG/3ML) 0.083% eCW1 [facility] Nebulizer - Nebulizer - 04/21/2020 12:00:00 AM EST active Nebulizer - eCW1 ([facility]) Nebulizer - Nebulizer - 04/21/2020 12:00:00 AM EST active Nebulizer - eCW1 ([facility]) Nebulizer/Tubing/Mouthpiece - Nebulizer/Tubing/Mouthpiece - 04/21/2020 12:00:00 AM EST active Nebulizer/Tubing/ Mouthpiece - eCW1 ([facility]) Nebulizer - Nebulizer - 04/21/2020 12:00:00 AM EST active Nebulizer - eCW1 ([facility]) Nebulizer/Tubing/Mouthpiece - Nebulizer/Tubing/Mouthpiece - 04/21/2020 12:00:00 AM EST active Nebulizer/Tubing/ Mouthpiece - eCW1 ([facility]) Albuterol 0.83 MG/ML Inhalant Solution Albuterol Sulfa te (2.5 MG/3ML) 0.083% Albuterol Sulfate (2.5 MG/3ML) 0.083% 04/21/2020 12:00:00 AM EST 3.0 {ml_as_needed} active Albuterol Sulfate (2.5 MG/3ML) 0.083% eCW1 [facility] Albuterol 0.83 MG/ML Inhalant Solution Albuterol Sulfa te (2.5 MG/3ML) 0.083% Albuterol Sulfate (2.5 MG/3ML) 0.083% 04/21/2020 12:00:00 AM EST 3.0 {ml_as_needed} active Albuterol Sulfate (2.5 MG/3ML) 0.083% eCW1 [facility] Nebulizer - Nebulizer - 04/21/2020 12:00:00 AM EST active Nebulizer - eCW1 ([facility]) Albuterol 0.83 MG/ML Inhalant Solution Albuterol Sulfa te (2.5 MG/3ML) 0.083% Albuterol Sulfate (2.5 MG/3ML) 0.083% 04/21/2020 12:00:00 AM EST 3.0 {ml_as_needed} active Albuterol Sulfate (2.5 MG/3ML) 0.083% eCW1 [facility] Nebulizer/Tubing/Mouthpiece - Nebulizer/Tubing/Mouthpiece - 04/21/2020 12:00:00 AM EST active Nebulizer/Tubing/ Mouthpiece - eCW1 ([facility]) Albuterol 0.83 MG/ML Inhalant Solution Albuterol Sulfa te (2.5 MG/3ML) 0.083% Albuterol Sulfate (2.5 MG/3ML) 0.083% 04/21/2020 12:00:00 AM EST 3.0 {ml_as_needed} active Albuterol Sulfate (2.5 MG/3ML) 0.083% eCW1 [facility] Albuterol 0.83 MG/ML Inhalant Solution Albuterol Sulfa te (2.5 MG/3ML) 0.083% Albuterol Sulfate (2.5 MG/3ML) 0.083% 04/21/2020 12:00:00 AM EST 3.0 {ml_as_needed} active Albuterol Sulfate (2.5 MG/3ML) 0.083% eCW1 ([facility]) Nebulizer - Nebulizer - 04/21/2020 12:00:00 AM EST active Nebulizer - eCW1 ([facility]) Nebulizer/Tubing/Mouthpiece - Nebulizer/Tubing/Mouthpiece - 04/21/2020 12:00:00 AM EST active Nebulizer/Tubing/ Mouthpiece - eCW1 ([facility]) Nebulizer/Tubing/Mouthpiece - Nebulizer/Tubing/Mouthpiece - 04/21/2020 12:00:00 AM EST active Nebulizer/Tubing/ Mouthpiece - eCW1 ([facility]) Nebulizer - Nebulizer - 04/21/2020 12:00:00 AM EST active Nebulizer - eCW1 ([facility]) Nebulizer - Nebulizer - 04/21/2020 12:00:00 AM EST active Nebulizer - eCW1 ([facility]) Nebulizer/Tubing/Mouthpiece - Nebulizer/Tubing/Mouthpiece - 04/21/2020 12:00:00 AM EST active Nebulizer/Tubing/ Mouthpiece - eCW1 ([facility]) Albuterol 0.83 MG/ML Inhalant Solution Albuterol Sulfa te (2.5 MG/3ML) 0.083% Albuterol Sulfate (2.5 MG/3ML) 0.083% 04/21/2020 12:00:00 AM EST 3.0 {ml_as_needed} active Albuterol Sulfate (2.5 MG/3ML) 0.083% eCW1 ([facility]) Albuterol 0.83 MG/ML Inhalant Solution Albuterol Sulfa te (2.5 MG/3ML) 0.083% Albuterol Sulfate (2.5 MG/3ML) 0.083% 04/21/2020 12:00:00 AM EST 3.0 {ml_as_needed} active Albuterol Sulfate (2.5 MG/3ML) 0.083% eCW1 ([facility]) Nebulizer/Tubing/Mouthpiece - Nebulizer/Tubing/Mouthpiece - 04/21/2020 12:00:00 AM EST active eCW1 ([facility]) Nebulizer/Tubing/Mouthpiece - Nebulizer/Tubing/Mouthpiece - 04/21/2020 12:00:00 AM EST active Nebulizer/Tubing/ Mouthpiece - eCW1 ([facility]) Albuterol 0.83 MG/ML Inhalant Solution Albuterol Sulfa te (2.5 MG/3ML) 0.083% Albuterol Sulfate (2.5 MG/3ML) 0.083% 04/21/2020 12:00:00 AM EST 3.0 {ml_as_needed} active Albuterol Sulfate (2.5 MG/3ML) 0.083% eCW1 ([facility]) Nebulizer - Nebulizer - 04/21/2020 12:00:00 AM EST active Nebulizer - eCW1 ([facility]) Nebulizer - Nebulizer - 04/21/2020 12:00:00 AM EST active Nebulizer - eCW1 ([facility]) Nebulizer - Nebulizer - 04/21/2020 12:00:00 AM EST active Nebulizer - eCW1 ([facility]) Nebulizer/Tubing/Mouthpiece - Nebulizer/Tubing/Mouthpiece - 04/21/2020 12:00:00 AM EST active Nebulizer/Tubing/ Mouthpiece - eCW1 ([facility]) Nebulizer - Nebulizer - 04/21/2020 12:00:00 AM EST active Nebulizer - eCW1 ([facility]) 2.5 mg 04/21/2020 12:00:00 AM EST tablet 30 TAKE ONE TABLET BY MOUTH ONCE DAILY FOR BLOOD PRESSURE OVER 140/90 TAKE ONE TABLET BY MOUTH ONCE DAILY FOR BLOOD PRESSURE OVER 140/90 SOLD: 04/21/2020 [facility] Nebulizer/Tubing/Mouthpiece - Nebulizer/Tubing/Mouthpiece - 04/21/2020 12:00:00 AM EST active Nebulizer/Tubing/ Mouthpiece - eCW1 ([facility]) Nebulizer/Tubing/Mouthpiece - Nebulizer/Tubing/Mouthpiece - 04/21/2020 12:00:00 AM EST active Nebulizer/Tubing/ Mouthpiece - eCW1 ([facility]) Nebulizer - Nebulizer - 04/21/2020 12:00:00 AM EST active eCW1 ([facility]) Albuterol 0.83 MG/ML Inhalant Solution Albuterol Sulfa te (2.5 MG/3ML) 0.083% Albuterol Sulfate (2.5 MG/3ML) 0.083% 04/21/2020 12:00:00 AM EST 3.0 {ml_as_needed} active Albuterol Sulfate (2.5 MG/3ML) 0.083% eCW1 ([facility]) Albuterol 0.83 MG/ML Inhalant Solution Albuterol Sulfa te (2.5 MG/3ML) 0.083% Albuterol Sulfate (2.5 MG/3ML) 0.083% 04/21/2020 12:00:00 AM EST 3.0 {ml_as_needed} active Albuterol Sulfate (2.5 MG/3ML) 0.083% eCW1 ([facility]) Albuterol 0.83 MG/ML Inhalant Solution Albuterol Sulfa te (2.5 MG/3ML) 0.083% Albuterol Sulfate (2.5 MG/3ML) 0.083% 04/21/2020 12:00:00 AM EST 3.0 {ml_as_needed} active Albuterol Sulfate (2.5 MG/3ML) 0.083% eCW1 ([facility]) Nebulizer - Nebulizer - 04/21/2020 12:00:00 AM EST active Nebulizer - eCW1 [facility] Albuterol 0.83 MG/ML Inhalant Solution Albuterol Sulfa te (2.5 MG/3ML) 0.083% Albuterol Sulfate (2.5 MG/3ML) 0.083% 04/21/2020 12:00:00 AM EST 3.0 {ml_as_needed} active Albuterol Sulfate (2.5 MG/3ML) 0.083% [facility]CW[facility] Albuterol 0.83 MG/ML Inhalant Solution Albuterol Sulfa te (2.5 MG/3ML) 0.083% Albuterol Sulfate (2.5 MG/3ML) 0.083% 04/21/2020 12:00:00 AM EST 3.0 {ml_as_needed} active Albuterol Sulfate (2.5 MG/3ML) 0.083% W1 [facility] Nebulizer/Tubing/Mouthpiece - Nebulizer/Tubing/Mouthpiece - 04/21/2020 12:00:00 AM EST active Nebulizer/Tubing/ Mouthpiece - eCW1 [facility]) Nebulizer - Nebulizer - 04/21/2020 12:00:00 AM EST active Nebulizer - eCW1 [facility]) Nebulizer - Nebulizer - 04/21/2020 12:00:00 AM EST active Nebulizer - eCW1 [facility]) Nebulizer/Tubing/Mouthpiece - Nebulizer/Tubing/Mouthpiece - 04/21/2020 12:00:00 AM EST active Nebulizer/Tubing/ Mouthpiece - eCW1 [facility]) Albuterol 0.83 MG/ML Inhalant Solution Albuterol Sulfa te (2.5 MG/3ML) 0.083% Albuterol Sulfate (2.5 MG/3ML) 0.083% 04/21/2020 12:00:00 AM EST 3.0 {ml_as_needed} active Albuterol Sulfate (2.5 MG/3ML) 0.083% eCW1 [facility] Albuterol 0.83 MG/ML Inhalant Solution Albuterol Sulfa te (2.5 MG/3ML) 0.083% Albuterol Sulfate (2.5 MG/3ML) 0.083% 04/21/2020 12:00:00 AM EST 3.0 {ml_as_needed} active Albuterol Sulfate (2.5 MG/3ML) 0.083% eCW1 [facility] Albuterol 0.83 MG/ML Inhalant Solution Albuterol Sulfa te (2.5 MG/3ML) 0.083% Albuterol Sulfate (2.5 MG/3ML) 0.083% 04/21/2020 12:00:00 AM EST 3.0 {ml_as_needed} active Albuterol Sulfate (2.5 MG/3ML) 0.083% eCW1 [facility] Albuterol 0.83 MG/ML Inhalant Solution Albuterol Sulfa te (2.5 MG/3ML) 0.083% Albuterol Sulfate (2.5 MG/3ML) 0.083% 04/21/2020 12:00:00 AM EST 3.0 {ml_as_needed} active Albuterol Sulfate (2.5 MG/3ML) 0.083% eCW1 [facility] Nebulizer/Tubing/Mouthpiece - Nebulizer/Tubing/Mouthpiece - 04/21/2020 12:00:00 AM EST active Nebulizer/Tubing/ Mouthpiece - eCW1 [facility]) Albuterol 0.83 MG/ML Inhalant Solution Albuterol Sulfa te (2.5 MG/3ML) 0.083% Albuterol Sulfate (2.5 MG/3ML) 0.083% 04/21/2020 12:00:00 AM EST 3.0 {ml_as_needed} active Albuterol Sulfate (2.5 MG/3ML) 0.083% eCW1 [facility] Nebulizer - Nebulizer - 04/21/2020 12:00:00 AM EST active Nebulizer - eCW1 [facility]) Nebulizer - Nebulizer - 04/21/2020 12:00:00 AM EST active Nebulizer - eCW1 [facility]) Nebulizer/Tubing/Mouthpiece - Nebulizer/Tubing/Mouthpiece - 04/21/2020 12:00:00 AM EST active Nebulizer/Tubing/ Mouthpiece - eCW1 [facility]) Albuterol 0.83 MG/ML Inhalant Solution Albuterol Sulfa te (2.5 MG/3ML) 0.083% Albuterol Sulfate (2.5 MG/3ML) 0.083% 04/21/2020 12:00:00 AM EST 3.0 {ml_as_needed} active Albuterol Sulfate (2.5 MG/3ML) 0.083% eCW1 [facility] Nebulizer - Nebulizer - 04/21/2020 12:00:00 AM EST active Nebulizer - eCW1 [facility]) Albuterol 0.83 MG/ML Inhalant Solution Albuterol Sulfa te (2.5 MG/3ML) 0.083% Albuterol Sulfate (2.5 MG/3ML) 0.083% 04/21/2020 12:00:00 AM EST 3.0 {ml_as_needed} active Albuterol Sulfate (2.5 MG/3ML) 0.083% eCW1 [facility] Nebulizer/Tubing/Mouthpiece - Nebulizer/Tubing/Mouthpiece - 04/21/2020 12:00:00 AM EST active Nebulizer/Tubing/ Mouthpiece - eCW1 [facility] Nebulizer/Tubing/Mouthpiece - Nebulizer/Tubing/Mouthpiece - 04/21/2020 12:00:00 AM EST active Nebulizer/Tubing/ Mouthpiece - eCW1 [facility]) INHALER, ASSIST DEVICES 04/17/2020 12:00:00 AM [...] Natan-Vu 04/17/2020 12:00:00 AM EST completed MED[facility] ([facility]) 60 ACTUAT Albuterol 0.09 MG/ACTUAT Metered Dose Inhaler Albu terol Sulfate HFA 04/17/2020 12:00:00 AM EST RESPIRATORY completed MEDENT ([facility]) 100 mg 04/09/2020 12:00:00 AM EST [...] a ctive Duloxetine HCl 30 MG eCW1 [facility]) duloxetine 30 MG Delayed Release Oral Capsule Duloxeti ne HCl 30 MG Duloxetine HCl 30 MG 03/25/2020 12:00:00 AM EST 1.0 {capsule} a ctive Duloxetine HCl 30 MG eCW1 [facility]) duloxetine 30 MG Delayed Release Oral Capsule Duloxeti ne HCl 30 MG Duloxetine HCl 30 MG 03/25/2020 12:00:00 AM EST 1.0 {capsule} a ctive Duloxetine HCl 30 MG eCW1 [facility]) Nortriptyline 50 MG Oral Capsule NORTRIPTYLINE HCL 03/18/2020 12 :00:00 AM EST capsule 30 TAKE ONE CAPSULE BY MOUTH AT BED TIME TAKE ONE CAPSULE BY MOUTH AT BEDTIME SOLD: 03/19/2020 [facility] carvedilol 12.5 MG Oral Tablet Carvedilol 12.5 MG Carvedilol 12.5 MG 03/17/2020 12:00:00 AM EST active Carvedil ol 12.5 MG eCW1 [facility]) carvedilol 6.25 MG Oral Tablet Carvedilol 6.25 MG Carvedilol 6.25 MG 03/17/2020 12:00:00 AM EST 1.0 {tablet_with_food} active Carvedilol 6.25 MG eCW1 [facility]) carvedilol 12.5 MG Oral Tablet Carvedilol 12.5 MG Carvedilol 12.5 MG 03/17/2020 12:00:00 AM EST active Carvedil ol 12.5 MG eCW1 [facility]) carvedilol 12.5 MG Oral Tablet Carvedilol 12.5 MG Carvedilol 12.5 MG 03/17/2020 12:00:00 AM EST 1.0 {tablet_with_food} active Carvedilol 12.5 MG eCW1 [facility]) carvedilol 12.5 MG Oral Tablet Carvedilol 12.5 MG Carvedilol 12.5 MG 03/17/2020 12:00:00 AM EST 1.0 {tablet_with_food} active Carvedilol 12.5 MG eCW1 [facility]) carvedilol 12.5 MG Oral Tablet Carvedilol 12.5 MG Carvedilol 12.5 MG 03/17/2020 12:00:00 AM EST 1.0 {tablet_with_food} active Carvedilol 12.5 MG eCW1 [facility]) carvedilol 6.25 MG Oral Tablet Carvedilol 6.25 MG Carvedilol 6.25 MG 03/17/2020 12:00:00 AM EST 1.0 {tablet_with_food} active Carvedilol 6.25 MG eCW1 [facility]) carvedilol 12.5 MG Oral Tablet Carvedilol 12.5 MG Carvedilol 12.5 MG 03/17/2020 12:00:00 AM EST active Carvedil ol 12.5 MG eCW1 [facility]) carvedilol 12.5 MG Oral Tablet Carvedilol 12.5 MG Carvedilol 12.5 MG 03/17/2020 12:00:00 AM EST active Carvedil ol 12.5 MG eCW1 [facility]) carvedilol 12.5 MG Oral Tablet Carvedilol 12.5 MG Carvedilol 12.5 MG 03/17/2020 12:00:00 AM EST active Carvedil ol 12.5 MG eCW1 [facility]) carvedilol 6.25 MG Oral Tablet Carvedilol 6.25 MG Carvedilol 6.25 MG 03/17/2020 12:00:00 AM EST 1.0 {tablet_with_food} active Carvedilol 6.25 MG eCW1 [facility]) carvedilol 12.5 MG Oral Tablet Carvedilol 12.5 MG Carvedilol 12.5 MG 03/17/2020 12:00:00 AM EST active Carvedil ol 12.5 MG eCW1 [facility]) carvedilol 12.5 MG Oral Tablet Carvedilol 12.5 MG Carvedilol 12.5 MG 03/17/2020 12:00:00 AM EST active Carvedil ol 12.5 MG eCW1 [facility]) carvedilol 6.25 MG Oral Tablet Carvedilol 6.25 MG Carvedilol 6.25 MG 03/17/2020 12:00:00 AM EST 1.0 {tablet_with_food} active Carvedilol 6.25 MG eCW1 [facility]) carvedilol 12.5 MG Oral Tablet Carvedilol 12.5 MG Carvedilol 12.5 MG 03/17/2020 12:00:00 AM EST active Carvedil ol 12.5 MG eCW1 [facility]) carvedilol 6.25 MG Oral Tablet Carvedilol 6.25 MG Carvedilol 6.25 MG 03/17/2020 12:00:00 AM EST 1.0 {tablet_with_food} active Carvedilol 6.25 MG eCW1 [facility]) carvedilol 6.25 MG Oral Tablet Carvedilol 6.25 MG Carvedilol 6.25 MG 03/17/2020 12:00:00 AM EST 1.0 {tablet_with_food} active Carvedilol 6.25 MG eCW1 [facility]) carvedilol 12.5 MG Oral Tablet Carvedilol 12.5 MG Carvedilol 12.5 MG 03/17/2020 12:00:00 AM EST 1.0 {tablet_with_food} active Carvedilol 12.5 MG eCW1 [facility]) carvedilol 12.5 MG Oral Tablet Carvedilol 12.5 MG Carvedilol 12.5 MG 03/17/2020 12:00:00 AM EST active Carvedil ol 12.5 MG eCW1 [facility]) carvedilol 6.25 MG Oral Tablet Carvedilol 6.25 MG Carvedilol 6.25 MG 03/17/2020 12:00:00 AM EST 1.0 {tablet_with_food} active Carvedilol 6.25 MG eCW1 [facility]) carvedilol 12.5 MG Oral Tablet Carvedilol 12.5 MG Carvedilol 12.5 MG 03/17/2020 12:00:00 AM EST active Carvedil ol 12.5 MG eCW1 [facility]) carvedilol 12.5 MG Oral Tablet Carvedilol 12.5 MG Carvedilol 12.5 MG 03/17/2020 12:00:00 AM EST active Carvedil ol 12.5 MG eCW1 [facility]) carvedilol 12.5 MG Oral Tablet Carvedilol 12.5 MG Carvedilol 12.5 MG 03/17/2020 12:00:00 AM EST 1.0 {tablet_with_food} active Carvedilol 12.5 MG eCW1 [facility]) carvedilol 6.25 MG Oral Tablet Carvedilol 6.25 MG Carvedilol 6.25 MG 03/17/2020 12:00:00 AM EST 1.0 {tablet_with_food} active Carvedilol 6.25 MG eCW1 [facility]) carvedilol 6.25 MG Oral Tablet Carvedilol 6.25 MG Carvedilol 6.25 MG 03/17/2020 12:00:00 AM EST 1.0 {tablet_with_food} active Carvedilol 6.25 MG eCW1 [facility]) carvedilol 12.5 MG Oral Tablet Carvedilol 12.5 MG Carvedilol 12.5 MG 03/17/2020 12:00:00 AM EST active Carvedil ol 12.5 MG eCW1 [facility]) carvedilol 12.5 MG Oral Tablet Carvedilol 12.5 MG Carvedilol 12.5 MG 03/17/2020 12:00:00 AM EST active Carvedil ol 12.5 MG eCW1 [facility]) carvedilol 12.5 MG Oral Tablet Carvedilol 12.5 MG Carvedilol 12.5 MG 03/17/2020 12:00:00 AM EST 1.0 {tablet_with_food} active Carvedilol 12.5 MG eCW1 [facility]) 1 mg 02/29/2020 12:00:00 AM EDT [...] active Butrans 5 MCG/HR eCW1 ([facility]) 168 HR Buprenorphine 0.005 MG/HR Transdermal Patch [Bu Trans] Butrans 5 MCG/HR Butrans 5 MCG/HR 02/28/2020 12:00:00 AM EDT 1.0 {patch_to_skin} active Butrans 5 MCG/HR eCW1 ([facility]) 168 HR Buprenorphine 0.005 MG/HR Transdermal Patch [Bu Trans] Butrans 5 MCG/HR Butrans 5 MCG/HR 02/28/2020 12:00:00 AM EDT 1.0 {patch_to_skin} active Butrans 5 MCG/HR eCW1 ([facility]) 168 HR Buprenorphine 0.005 MG/HR Transdermal Patch [Bu Trans] Butrans 5 MCG/HR Butrans 5 MCG/HR 02/28/2020 12:00:00 AM EDT 1.0 {patch_to_skin} active Butrans 5 MCG/HR eCW1 ([facility]) 10 mg 02/26/2020 12:00:00 AM EDT tablet [...] Plan Information [place] [employer] B [id number] Self [id number] [place] [id number] Self [id number] [facility] MEDICARE COMPLETE G [id number] Self [id number] MEDICARE COMPLETE [id number] SP [id number] MEDICARE COMPLETE [id number] SP [id number] [facility] Commercial [id number] Self [id number] MEDICARE COMPLETE [id number] SP [id number] MEDICARE COMPLETE [id number] SP [id number] MEDICARE COMPLETE [id number] SP [id number] [place] [place] [id number] AN[place]are Part B [id number] [facility] [id number]-[id number]-[id number] AN[place]edicare Part B [id number] faui8c8z-4d9v-94jt-[id number]-[id number] ANSI-Medicare Part B [id number] ANSI-Medicare Part B [id number] [id number]-[id number] ANSI-Medicare Part B [id number]-[id number] ANSI-Medicare Part B [id number]-9v3g-27f4-nh9x-[id number] ANSI-Medicare Part B [id number]-p6o3-72xd-[id number] ANSI-Medicare Part B [id number] [facility]/Medicare Solu Commercial [id number] Self [id number] ANSI-Medicare Part B [id number]-[id number] l50l0b8t-ll5h-52hf-2hk8-cxb40k27byg6 ANSI-Medicare Part B [id number] oq4zb4qq-865b-0a8q-[id number] ANSI-Medicare Part B [id number]-97ay-[id number] [id number]-48ba-[id number] ANSI-Medicare Part B [id number]-[id number] ANSI-Medicare Part B [id number]-[id number] k3507aeg-2mz4-7jpo-z77w-91r2fp382dc5 ANSI-Medicare Part B [id number]-[id number]-4oyn-[id number] ANSI-Medicare Part B [id number] 08hd87z2-[id number] ANSI-Medicare Part B [id number]-[id number]-l417-[id number] ANSI-Medicare Part B [id number]-2e27-d014-h4279cqo4660 z3y6m6l9-6f7g-3s93-d201-l0918zfj5539 ANSI-Medicare Part B [id number]-c44k-r8kq3832ebsj 68rp84s3-0129-27h0-l67i-u5aj9284ithr ANSI-Medicare Part B [id number]-452j-363w-[id number] 96ao96nb-q5yq-039s-919e-3455294416m3 ANSI-Medicare Part B [id number]-[id number] l5n4pb60-2418-401a-[id number] [facility]/Medicare Solu Commercial [id number] Self [id number] ANSI-Medicare Part B [id number]-gk7p-77e7-n2vy-[id number] n2f4m86a-lz9r-52v9-l2tk-n568535k3u0k ANSI-Medicare Part B [id number]-[id number] w9pn1k01-4629-8vm9-[id number] ANSI-Medicare Part B [id number]-[id number]-[id number] 2m7wa015-e2dp-5374-0e4l-[id number] ANSI-Medicare Part B [id number]-l00z-[id number] a340wd34-l51x-2810-57za-9w1825h7oz60 [facility]/Medicare Commercial [id number] Self ANSI-Medicare Part B [id number]-2088-i3w8-fd7o8r281484 p8vt12wa-i4nd-5488-[id number] ANSI-Medicare Part B [id number]-6d25-[id number] 87n2u2j7-8cv3-953q-1u41-mvrc83x56649 ANSI-Medicare Part B 74r7ea76-9623-22fc-sg56-c03i5439flz4 24o4ds00-6087-03jh-gc49-v14i2425ncm1 ANSI-Medicare Part B [id number]-n769-s05h9784q2h9 ob84v169-4283-0377-g592-r69j7513z2z0 ANSI-Medicare Part B [id number]-awv2-[id number] 462ua860-7518-8k1q-vcl0-[id number] ANSI-Medicare Part B [id number]-4x85757hyb3n h4wi22wr-h535-1c82-8e6m-1x54401hfk5e ANSI-Medicare Part B [id number]-oog5-[id number] 10o1m73b-3d59-6f64-kqm3-[id number] ANSI-Medicare Part B [id number]-iw91o016cm55 f388vr68-97v0-8723-41d9-lm23f781rm23 [facility]/Medicare Solu Commercial [id number] Self [id number] ANSI-Medicare Part B [id number]-9zz7-73ra-[id number] po31i16s-7re0-32cr-[id number] [facility]/Medicare Solu Commercial [id number] Self [id number] ANSI-Medicare Part B [id number]-[id number]-3841-5483-8772-[id number] ANSI-Medicare Part B [id number]-37l7-2vsz-[id number] 295z54vi-562s-37w5-1hfe-p1fo1k0r7y60 ANSI-Medicare Part B [id number]-5574-nn56-[id number] [id number]-[id number]-[id number] ANSI-Medicare Part B [id number]-[id number] [id number]-90f6-[id number] ANSI-Medicare Part B [id number]-k14j-71g2618xgytg q672j99t-[id number]-a35d-50s8460ztrlu ANSI-Medicare Part B [id number]-[id number] 32icx5ls-0a5q-[id number] ANSI-Medicare Part B [id number]-ztlu-[id number] [id number]-48893c1a3l10 ANSI-Medicare Part B [id number]-e52w-38vg7e3xl17l [id number]-e99k-42uc2y7yd80f ANSI-Medicare Part B [id number]-n2h4-[id number]-qd38-43wa-r2a8-[id number] [facility] [id number] Self [id number] [facility] [id number] Self MEDICARE [id number] SP [id number] A Medicare P UNAVAILABLE S UNAVAILA BLE Self Pay S [id number] S [id number] [facility] O [id number] S [id number] [facility] MEDICARE-O/P [id number] 18 [id number] MEDICARE COMPLETE [id number] SP [id number] A MEDICARE COMPLETE [id number] SP [id number] MEDICARE [id number] SP [id number] MEDICARE COMPLETE-UHC O [id number] S [id number] MEDICARE COMPLETE-[facility] O [id number] S [id number] ANSI-Medicare Part B [id number] ANSI-Medicare Part B [id number] [facility]-Medicare Part B [id number] [id number]-72md-g640-308uga2h1ke3 Problems, Conditions, and Diagnoses Code Display Name Description Problem Type Effective Dates Data Source(s) Rt facial droop, RLE weakness Rt facial droop, RLE wea kness Diagnosis 06/22/2020 03:26:[address] [facility] [place] G44.221 Chronic tension-type headache Chronic tension-type hea dache Problem 12/18/2020 12:00:00 AM EDT MEDENT ([facility], ) G43.009 Migraine without aura, not refractory Mi graine without aura, not refractory Problem 12/18/2020 12:00:00 AM EDT MEDENT ([facility], ) G89.29 [id number] Other chronic pain Problem 11/11/2020 12:00: 00 AM EDT [facility] F41.9 [id number] Anxiety Problem 08/19/2020 12:00:00 AM ED T eCW1 [facility]) N94.89 [id number] Burning sensation of vulva Problem 12:00:00 AM EDT eCW1 ([facility]) R20.0 Skin sensation disturbance Skin sensation disturbance Problem 07/18/2020 12:00:00 AM EST MEDENT ([facility], ) R53.1 Malaise and fatigue Malaise and fatigue Problem 0 07/18/2020 12:00:00 AM EST MEDENT ([facility], ) Z86.73 History of cerebrovascular accident with out residual deficits History of cerebrovascular accident without residual deficits Problem 09/2020 12:00:00 AM EST MEDENT ([facility], ) 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 Problem 07/18/2020 12:00:00 AM EST MEDENT ([facility], ) M54.2 Neck pain Neck pain Problem 07/18/2020 12:00:00 AM ES T MEDENT ([facility], ) 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 Problem 07/18/2020 12:00:00 AM EST MEDENT ([facility], ) M54.5 Low back pain Low back pain Problem 07/18/2020 12:00:00 AM EST MEDENT ([facility], ) M43.06 Spondylolysis Spondylolysis Problem 07/18/2020 12:00:00 AM EST MEDENT ([facility], ) Z12.2 [id number] Encounter for screening for lung cancer P john 06/30/2020 12:00:00 AM EST [facility] G89.4 [id number] Chronic pain syndrome Problem 05/19/2020 12: 00:00 AM EST eCW1 [facility]) N28.1 [id number] Renal cyst Problem 03/17/2020 12:00:00 AM ES T eCW1 [facility]) Surgeries/Procedures Procedure Description Date Indications Data Source(s) OFFICE OUTPATIENT VISIT 15 MINUTES 03/13/2021 12:00:00 AM EDT [facility] ([facility], ) PHYSICIAN TELEPHONE EVALUATION 11-20 MIN 03/05/2021 12 :00:00 AM EDT MEDENT ([facility], ) Magnetic Resonance Angiogtaphy Head W/O Contrast Material(S) 12/23/2020 12:00:00 AM EDT MED[facility] ([facility], ) Magnetic Resonance Angiogtaphy Head W/O Contrast Material(S) 12/23/2020 12:00:00 AM EDT [facility] ([facility], ) MRI BRAIN BRAIN STEM W/O CONTRAST MATERIAL 12/23/2020 12:00:00 AM EDT [facility] ([facility], ) MRI BRAIN BRAIN STEM W/O CONTRAST MATERIAL 12/23/2020 12:00:00 AM EDT [facility] ([facility], ) PHYSICIAN TELEPHONE EVALUATION 11-20 MIN 12/18/2020 12 :00:00 AM EDT [facility] ([facility]) X-Ray Spine Lumbosacral Complete Inc Bending Views Min Of 6 11/18/2020 12:00:00 AM EDT [facility] ([facility]) OFFICE OUTPATIENT VISIT 25 MINUTES 11/18/2020 12:00:00 AM EDT [facility] ([facility]) ARTHROCENTESIS ASPIR&/INJECTION MAJOR JT/BURSA 021 12:00:00 AM EDT [facility] ([facility]) OFFICE OUTPATIENT VISIT 25 MINUTES 10/23/2020 12:00:00 AM EDT [facility] ([facility]) OFFICE OUTPATIENT VISIT 15 MINUTES 10/22/2020 12:00:00 AM EDT [facility] ([facility], ) OFFICE OUTPATIENT NEW 60 MINUTES 07/18/2020 12:00:00 A M EST [facility] ([facility], ) PRESSURIZED/NONPRESSURIZED INHALATION TREATMENT 2019 12:00:00 AM EST [facility] ([facility]) Results ID Date Data Source [id number] 04/18/2021 01:19:00 PM EST [facility] Name Value Range Interpretation Code Description Data Yue rce(s) Supporting Document(s) SARS coronavirus 2 RNA [Presence] in Res piratory specimen by BARBARA with probe detection NEGATIVE - SARS-CoV-2 (COVID19) [facility] This lab was ordered by [facility] a nd reported by [facility] [place]. ID Date Data Source [facility] MRI ABDOMEN WITHOUT CONTRAST 08/21/2020 12:00:00 AM EDT [facility] Name Value Range Interpretation Code Description Data Yue rce(s) Supporting Document(s) [facility] MRI ABDOMEN WITHOUT CONTRA ST eCW1 ([facility]) ID Date Data Source CBC with Differential 08/19/2020 12:00:00 AM EDT eCW1 ([facility]) Name Value Range Interpretation Code Description Data Yue rce(s) Supporting Document(s) 8.4 4.0-10.0 WHITE BLOOD COUNT eCW1 ([facility]) 51.7 36.0-47.0 HEMATOCRIT eCW1 ([facility]) 16.7 12.0-15.5 HEMOGLOBIN eCW1 ([facility]) 5.29 4.00-5.40 RED BLOOD COUNT eCW1 ([facility]) 31.6 27.0-33.0 MEAN CORPUSCULAR HEMOGLOB IN eCW1 ([facility]) 32.3 32.0-36.5 MEAN CORPUSCULAR HGB CONC eCW1 ([facility]) 97.7 80.0-96.0 MEAN CORPUSCULAR VOLUME e CW1 ([facility]) 270 150-450 PLATELET COUNT, AUTOMATED eCW1 ([facility]) 43.8 36.0-66.0 NEUTROPHILS % eCW1 ([facility]) 13.8 11.5-14.5 RED CELL DISTRIBUTION WID TH eCW1 ([facility]) 39.9 24.0-44.0 LYMPH % eCW1 ([facility]) 4.2 0.0-3.0 EOS % eCW1 ([facility]) 11.3 2.0-8.0 MONO % eCW1 ([facility]) 3.7 1.5-8.5 NEUTROPHILS # eCW1 ([facility]) 3.4 1.5-5.0 LYMPH # eCW1 ([facility]) 0.6 0.0-1.0 BASO % eCW1 ([facility]) 0.1 0.0-0.2 BASO # eCW1 ([facility]) 0.4 0.0-0.5 EOS # eCW1 ([facility]) 1.0 0.0-0.8 MONO # eCW1 ([facility]) ID Date Data Source [id number] TUMOR MARKER,CARBOHYDRA 08/19/2020 12:00:00 AM EDT eC W1 [facility]) Name Value Range Interpretation Code Description Data Yue rce(s) Supporting Document(s) 16.4 <35.0 [id number] TUMOR MARKER,CARBO HYDRA eCW1 ([facility]) ID Date Data Source URINE CULTURE 08/08/2020 12:00:00 AM EDT eCW1 ([facility]) Name Value Range Interpretation Code Description Data Yue rce(s) Supporting Document(s) Laboratory studies (set) URINE CULTU RE eCW1 ([facility]) ID Date Data Source [id number] 07/14/2020 11:21:00 AM EST [facility] ([facility]) Name Value Range Interpretation Code Description Data Yue rce(s) Supporting Document(s) Bacteria identified in Urine by Culture Laboratory test result [facility] ([facility]) ID Date Data Source [id number] 07/14/2020 12:00:00 AM EST [facility] Name Value Range Interpretation Code Description Data Yue rce(s) Supporting Document(s) SARS-CoV2 Rapid Antigen Negative [facility] This lab was reported by [facility] re. ID Date Data Source [id number] 06/22/2020 01:49:00 PM EST [facility] Name Value Range Interpretation Code Description Data Yue rce(s) Supporting Document(s) SARS coronavirus 2 RNA [Presence] in Res piratory specimen by BARBARA with probe detection NEGATIVE [facility] This lab [place] [facility] a nd reported by [facility], [place]. ID Date Data Source [id number] 06/04/2020 09:27:00 AM EST MEDENT ([facility]) Name Value Range Interpretation Code Description Data Yue rce(s) Supporting Document(s) WBC, Urine Auto 1 /HPF 0-3 MEDENT ([facility], [facility]) RBC, Urine Auto 1 /HPF 0-3 MEDENT ([facility]) Bacteria, Urine Auto Laboratory test result MEDENT ([facility]) Squamous Epithelial Cell Ur AU 0 /HPF 0-6 MEDENT ([facility]) Mucus, Urine Laboratory test result MEDE NT ([facility]) Hyaline Cast, Urine Auto 0 /LPF 0-1 MEDEN T ([facility]) ID Date Data Source [id number] 06/04/2020 09:27:00 AM EST MEDENT ([facility]) Name Value Range Interpretation Code Description Data Yue rce(s) Supporting Document(s) Bacteria identified in Urine by Culture Laboratory test result MEDENT ([facility]) FULL REPORT IN LAB NOTES (eCW and Medent ). NO GROWTH CLINICAL SIGNIFICANCE 2 OR MORE ORGANISMS ID Date Data Source [id number] 06/04/2020 12:00:00 AM EST [facility] Name Value Range Interpretation Code Description Data Yue rce(s) Supporting Document(s) SARS coronavirus 2 Ag Negative [facility] This lab was ordered by [facility] and reported by [facility]. ID Date Data Source UA URINALYSIS 05/19/2020 12:00:00 AM EST eCW1 ([facility]) Name Value Range Interpretation Code Description Data Yue rce(s) Supporting Document(s) Laboratory studies (set) UA URINALYS IS eCW1 [facility] ID Date Data Source [id number] 05/12/2020 08:16:00 PM EST [facility] Name Value Range Interpretation Code Description Data Yue rce(s) Supporting Document(s) SARS coronavirus 2 RNA [facility] This lab was ordered by [facility] and reported by [facility]. ID Date Data Source [id number] 05/01/2020 02:32:00 PM EST [facility] Name Value Range Interpretation Code Description Data Yue rce(s) Supporting Document(s) SARS coronavirus 2 RNA [Presence] in Res piratory specimen by BARBARA with probe detection [facility] This lab was ordered by [facility] a nd reported by [facility] [place]. ID Date Data Source [id number] 04/17/2020 11:36:00 AM EST MEDENT ([facility]) Name Value Range Interpretation Code Description Data Yue rce(s) Supporting Document(s) Blood Urea Nitrogen 11 mg/dL 7-18 MEDENT ([facility]) Creatinine For GFR 0.85 mg/dL 0.55-1.30 MEDENT ([facility]) Glucose, Fasting 85 mg/dL 70-100 MEDENT ([facility]) Glomerular Filtration Rate Laboratory test [facility] ([facility]) <content>Units are mL/min/1.73 m2</content>
<content></content>
<content>Chronic Kidney Disease Staging per NKF:</content>
<content></content>
<content>Stage I & II GFR >=60 Normal to Mildly Decreased</content>
<content>Stage III GFR 30- 59 Moderately Decreased</content>
<content>Stage IV GFR 15-29 Severely Decreased</content>
<content>Stage V GFR <15 Very Little GFR Left</content>
<content>ESRD GFR <15 on RAW STOCK DRIER TENDER</content>
<content></content> Sodium Level 141 meq/L 136-145 MEDENT ([facility], [facility]) Chloride Level 108 meq/L 98-107 MEDENT ([facility], [facility]) Potassium Serum 3.9 meq/L 3.5-5.1 MEDENT ([facility], [facility]) Carbon Dioxide Level 27 meq/L 21-32 MEDENT ([facility], [facility]) Calcium Level 9.7 mg/dL 8.5-10.1 MEDENT ([facility], [facility]) Ast/Sgot 9 U/L 7-37 MEDENT ([facility], [facility]) Anion Gap 6 meq/L 8-16 MEDENT ([facility], [facility]) Alt/SGPT 17 U/L 12-78 MEDENT ([facility], [facility]) Alkaline Phosphatase 88 U/L 45-117 MEDENT ([facility], [facility]) Bilirubin,Total 0.4 mg/dL 0.2-1.0 MEDENT ([facility], [facility]) Albumin 3.7 GM/DL 3.2-5.2 MEDENT ([facility], [facility]) Total Protein 6.7 GM/DL 6.4-8.2 MEDENT ([facility], [facility]) Albumin/Globulin Ratio 1.2 1.2-2.2 MEDENT ([facility], [facility]) ID Date Data Source [id number] 04/17/2020 11:36:00 AM EST MEDENT ([facility]) Name Value Range Interpretation Code Description Data Yue rce(s) Supporting Document(s) White Blood Count 7.6 10 4.0-10.0 MEDENT [facility] Hemoglobin 14.9 g/dL 12.0-15.5 MEDENT ([facility] Red Blood Count 4.77 10 4.00-5.40 MEDENT ([facility]) Hematocrit 46.3 % 36.0-47.0 MEDENT ([facility]) Mean Corpuscular Hemoglobin 31.2 pg 27.0-33.0 MEDENT ([facility]) Mean Corpuscular Volume 97.1 fl 80.0-96.0 M EDENT ([facility]) Mean Corpuscular HGB Conc 32.2 g/dL 32.0-36.5 MEDENT ([facility]) Platelet Count, Automated 255 10 150-450 MEDENT ([facility] Red Cell Distribution Width 14.8 % 11.5-14.5 MEDENT ([facility]) Lymph % 40.2 % 24.0-44.0 MEDENT ([facility]) Cole % 11.6 % 0.0-5.0 MEDENT ([facility]) Neutrophils % 42.6 % 36.0-66.0 MEDENT ([facility]) Baso % 0.7 % 0.0-1.0 MEDENT ([facility]) Eos % 4.6 % 0.0-3.0 MEDENT ([facility]) Neutrophils # 3.3 10 1.5-8.5 MEDENT ([facility]) Nucleated Red Blood Cell % 0.0 % 0-0 MED ENT ([facility]) Immature Granulocyte % 0.3 % 0-3.0 MEDENT ([facility]) Eos # 0.4 10 0.0-0.5 MEDENT ([facility], [facility]) Lymph # 3.1 10 1.5-5.0 MEDENT ([facility], [facility]) Cole # 0.9 10 0.0-0.8 MEDENT ([facility], [facility]) Baso # 0.1 10 0.0-0.2 MEDENT ([facility], [facility]) ID Date Data Source DRUG EVAL COMPREHENSIVE 03/22/2020 04:46:20 AM EST eCW1 (On license of [facility]) Name Value Range Interpretation Code Description Data Yue rce(s) Supporting Document(s) DRUG EVAL COMPREHENSIVE [facility] ( [facility]) ID Date Data Source ERYTHROCYTE SEDIMENTATION RATE 03/18/2020 05:27:57 AM EST eC W1 ([facility]) Name Value Range Interpretation Code Description Data Yue rce(s) Supporting Document(s) 1 ERYTHROCYTE SEDIMENTATION RATE eCW1 ([facility]) ID Date Data Source NT-PRO BNP 03/18/2020 04:57:51 AM EST eCW1 ([facility]) Name Value Range Interpretation Code Description Data Yue rce(s) Supporting Document(s) 112 NT-PRO BNP eCW1 ([facility]) ID Date Data Source C REACTIVE PROTEIN QUANTITATIV (At [facility]) 03/18/2020 04:57 :44 AM EST eCW1 ([facility] Name Value Range Interpretation Code Description Data Yue rce(s) Supporting Document(s) < 0.30 C REACTIVE PROTEIN QUANTI TATIV eCW1 ([facility]) ID Date Data Source [id number] 03/03/2020 02:03:00 PM EDT MEDENT ([facility]) Name Value Range Interpretation Code Description Data Yue rce(s) Supporting Document(s) Laboratory test finding (navigational concept) Laboratory test result MEDENT ([facility]) Procedure Social History Code Duration Value Status Description Data Source(s ) Smoking 03/13/2021 12:00:00 AM EDT Patient is a former smoker completed Patient is a former smoker MEDENT ([facility], ) Smoking 03/01/2021 12:00:00 AM EDT Former Smoker completed Former Smoker eCW1 ([facility]) Smoking 03/01/2021 12:00:00 AM EDT Former Smoker completed Former Smoker eCW1 ([facility]) Smoking 03/01/2021 12:00:00 AM EDT Former Smoker completed Former Smoker eCW1 ([facility]) Smoking 03/01/2021 12:00:00 AM EDT Former Smoker completed Former Smoker eCW1 ([facility]) Smoking 03/01/2021 12:00:00 AM EDT Former Smoker completed Former Smoker eCW1 ([facility]) Smoking 03/01/2021 12:00:00 AM EDT Former Smoker completed Former Smoker eCW1 ([facility]) Smoking 03/01/2021 12:00:00 AM EDT Former Smoker completed Former Smoker eCW1 ([facility]) Smoking 03/01/2021 12:00:00 AM EDT Former Smoker completed Former Smoker eCW1 ([facility]) Smoking 03/01/2021 12:00:00 AM EDT Former Smoker completed Former Smoker eCW1 ([facility]) Smoking 03/01/2021 12:00:00 AM EDT Former Smoker completed Former Smoker eCW1 ([facility]) Smoking 03/01/2021 12:00:00 AM EDT Former Smoker completed Former Smoker eCW1 ([facility]) Smoking 03/01/2021 12:00:00 AM EDT Former Smoker completed Former Smoker eCW1 ([facility]) Smoking 03/01/2021 12:00:00 AM EDT Former Smoker completed Former Smoker eCW1 ([facility]) Smoking 02/19/2021 12:00:00 AM EDT Former Smoker completed Former Smoker eCW1 ([facility]) Smoking 02/19/2021 12:00:00 AM EDT Former Smoker completed Former Smoker eCW1 ([facility]) Smoking 02/19/2021 12:00:00 AM EDT Former Smoker completed Former Smoker eCW1 ([facility]) Smoking 02/19/2021 12:00:00 AM EDT Former Smoker completed Former Smoker eCW1 ([facility]) Smoking 02/06/2021 12:00:00 AM EDT Former Smoker completed Former Smoker eCW1 ([facility]) Smoking 02/06/2021 12:00:00 AM EDT Former Smoker completed Former Smoker eCW1 ([facility]) Smoking 11/11/2020 12:00:00 AM EDT Former Smoker completed Former Smoker eCW1 ([facility]) Smoking 11/11/2020 12:00:00 AM EDT Former Smoker completed Former Smoker eCW1 ([facility]) Smoking 11/11/2020 12:00:00 AM EDT Former Smoker completed Former Smoker eCW1 ([facility]) Smoking 11/11/2020 12:00:00 AM EDT Former Smoker completed Former Smoker eCW1 ([facility]) Smoking 11/11/2020 12:00:00 AM EDT Former Smoker completed Former Smoker eCW1 ([facility]) Smoking 11/11/2020 12:00:00 AM EDT Former Smoker completed Former Smoker eCW1 ([facility]) Smoking 11/11/2020 12:00:00 AM EDT Former Smoker completed Former Smoker eCW1 ([facility]) Smoking 11/11/2020 12:00:00 AM EDT Former Smoker completed Former Smoker eCW1 ([facility]) Smoking 11/11/2020 12:00:00 AM EDT Former Smoker completed Former Smoker eCW1 ([facility]) Smoking 11/11/2020 12:00:00 AM EDT Former Smoker completed Former Smoker eCW1 ([facility]) Smoking 10/28/2020 12:00:00 AM EDT Former Smoker completed Former Smoker eCW1 ([facility]) Smoking 10/28/2020 12:00:00 AM EDT Former Smoker completed Former Smoker eCW1 ([facility]) Smoking 10/28/2020 12:00:00 AM EDT Former Smoker completed Former Smoker eCW1 ([facility]) Smoking 10/28/2020 12:00:00 AM EDT Former Smoker completed Former Smoker eCW1 ([facility]) Smoking 10/28/2020 12:00:00 AM EDT Former Smoker completed Former Smoker eCW1 ([facility]) Smoking 08/19/2020 12:00:00 AM EDT Former Smoker completed Former Smoker eCW1 ([facility]) Smoking 08/19/2020 12:00:00 AM EDT Former Smoker completed Former Smoker eCW1 ([facility]) Smoking 08/19/2020 12:00:00 AM EDT Former Smoker completed Former Smoker eCW1 ([facility]) Smoking 08/19/2020 12:00:00 AM EDT Former Smoker completed Former Smoker eCW1 ([facility]) Smoking 08/19/2020 12:00:00 AM EDT Former Smoker completed Former Smoker eCW1 ([facility]) Smoking 08/19/2020 12:00:00 AM EDT Former Smoker completed Former Smoker eCW1 ([facility]) Smoking 08/19/2020 12:00:00 AM EDT Former Smoker completed Former Smoker eCW1 ([facility]) Smoking 08/19/2020 12:00:00 AM EDT Former Smoker completed Former Smoker eCW1 ([facility]) Smoking 08/14/2020 12:00:00 AM EDT Former Smoker completed Former Smoker eCW1 ([facility]) Smoking 08/08/2020 12:00:00 AM EDT Former Smoker completed Former Smoker eCW1 ([facility]) Smoking 08/08/2020 12:00:00 AM EDT Former Smoker completed Former Smoker eCW1 ([facility]) Smoking 08/08/2020 12:00:00 AM EDT Former Smoker completed Former Smoker eCW1 ([facility]) Smoking 08/08/2020 12:00:00 AM EDT Former Smoker completed Former Smoker eCW1 ([facility]) Smoking 06/30/2020 12:00:00 AM EST Former Smoker completed Former Smoker eCW1 ([facility]) Smoking 06/30/2020 12:00:00 AM EST Former Smoker completed Former Smoker eCW1 ([facility]) Smoking 06/30/2020 12:00:00 AM EST Former Smoker completed Former Smoker eCW1 ([facility]) Smoking 06/30/2020 12:00:00 AM EST Former Smoker completed Former Smoker eCW1 ([facility]) Smoking 06/30/2020 12:00:00 AM EST Former Smoker completed Former Smoker eCW1 ([facility]) Smoking 06/30/2020 12:00:00 AM EST Former Smoker completed Former Smoker eCW1 ([facility]) Smoking 06/30/2020 12:00:00 AM EST Former Smoker completed Former Smoker eCW1 ([facility]) Smoking 06/30/2020 12:00:00 AM EST Former Smoker completed Former Smoker eCW1 ([facility]) Smoking 06/30/2020 12:00:00 AM EST Former Smoker completed Former Smoker eCW1 ([facility]) Smoking 05/19/2020 12:00:00 AM EST Former Smoker completed Former Smoker eCW1 ([facility]) Smoking 05/19/2020 12:00:00 AM EST Former Smoker completed Former Smoker eCW1 ([facility]) Smoking 05/19/2020 12:00:00 AM EST Former Smoker completed Former Smoker eCW1 ([facility]) Smoking 05/19/2020 12:00:00 AM EST Former Smoker completed Former Smoker eCW1 ([facility]) Smoking 05/19/2020 12:00:00 AM EST Former Smoker completed Former Smoker eCW1 ([facility]) Smoking 05/19/2020 12:00:00 AM EST Former Smoker completed Former Smoker eCW1 ([facility]) Smoking 05/19/2020 12:00:00 AM EST Former Smoker completed Former Smoker eCW1 ([facility]) Smoking 05/19/2020 12:00:00 AM EST Former Smoker completed Former Smoker eCW1 ([facility]) Smoking 05/19/2020 12:00:00 AM EST Former Smoker completed Former Smoker eCW1 ([facility]) Smoking 05/19/2020 12:00:00 AM EST Former Smoker completed Former Smoker eCW1 ([facility]) Smoking 05/19/2020 12:00:00 AM EST Former Smoker completed Former Smoker eCW1 ([facility]) Smoking 05/19/2020 12:00:00 AM EST Former Smoker completed Former Smoker eCW1 ([facility]) Smoking 05/19/2020 12:00:00 AM EST Former Smoker completed Former Smoker eCW1 ([facility]) Smoking 04/21/2020 12:00:00 AM EST Former Smoker completed Former Smoker eCW1 ([facility]) Smoking 04/21/2020 12:00:00 AM EST Former Smoker completed Former Smoker eCW1 ([facility]) Smoking 04/21/2020 12:00:00 AM EST Former Smoker completed Former Smoker eCW1 ([facility]) Smoking 04/21/2020 12:00:00 AM EST Former Smoker completed Former Smoker eCW1 ([facility]) Smoking 04/21/2020 12:00:00 AM EST Former Smoker completed Former Smoker eCW1 ([facility]) Smoking 04/21/2020 12:00:00 AM EST Former Smoker completed Former Smoker eCW1 ([facility]) Smoking 03/17/2020 12:00:00 AM EST Former Smoker completed Former Smoker eCW1 ([facility]) Smoking 03/17/2020 12:00:00 AM EST Former Smoker completed Former Smoker eCW1 ([facility]) Smoking 03/17/2020 12:00:00 AM EST Former Smoker completed Former Smoker eCW1 ([facility]) Smoking 03/17/2020 12:00:00 AM EST Former Smoker completed Former Smoker eCW1 ([facility]) Smoking 03/17/2020 12:00:00 AM EST Former Smoker completed Former Smoker eCW1 ([facility]) Smoking 03/17/2020 12:00:00 AM EST Former Smoker completed Former Smoker eCW1 ([facility]) Smoking 03/17/2020 12:00:00 AM EST Former Smoker completed Former Smoker eCW1 ([facility]) Smoking 03/17/2020 12:00:00 AM EST Former Smoker completed Former Smoker eCW1 ([facility]) Smoking 03/17/2020 12:00:00 AM EST Former Smoker completed Former Smoker eCW1 ([facility]) Vital Signs ID Date Data Source UNK Name Value Range Interpretation Code Description Data Source(s) Bruin body weight 140 [lb_av] 140 [lb_av] MEDEN T ([facility]) Body weight 101.153 kg 101.153 kg [facility] ([facility]) Body surface area Derived from formula 2.14 m2 2.14 m2 [facility] ([facility]) Systolic blood pressure 100 mm[Hg] 100 mm[Hg] [facility] Diastolic blood pressure 62 mm[Hg] 62 mm[Hg] [facility] ([facility]) Heart rate 80 /min 80 /min [facility] ([facility]) Oxygen saturation in Arterial blood by Pulse oximetry 95 % 95 % [facility] ([facility]) Respiratory rate 18 /min 18 /min [facility] ( [facility]) Body height 68 [in_i] 68 [in_i] MEDENT ([facility]) 5'8" Body weight 223.00 [lb_av] 223.00 [lb_av] MEDEN T ([facility]) Body mass index (BMI) [Ratio] 33.9 kg/m2 33.9 k g/m2 [facility] ([facility]) Body mass index (BMI) [Ratio] 34.06 kg/m2 34.06 kg/m2 eCW1 ([facility] Body weight 222.4 [lb_av] 222.4 [lb_av] eCW1 ([facility], [facility]) Heart rate 77 /min 77 /min eCW1 ([facility]) Respiratory rate 18 /min 18 /min eCW1 ([facility]) Body weight 100.88 kg 100.88 kg eCW1 ([facility]) Body height 67.75 [in_i] 67.75 [in_i] eCW1 (On license of [facility]) Body temperature 99.0 [degF] 99.0 [degF] eCW1 ( [facility]) Systolic blood pressure 128 mm[Hg] 128 mm[Hg] e CW1 ([facility]) Diastolic blood pressure 72 mm[Hg] 72 mm[Hg] eCW1 ([facility]) Diastolic blood pressure 76 mm[Hg] 76 mm[Hg] eCW1 ([facility]) Systolic blood pressure 116 mm[Hg] 116 mm[Hg] e CW1 ([facility]) Body weight 219 [lb_av] 219 [lb_av] eCW1 ([facility]) Body height 67.75 [in_i] 67.75 [in_i] eCW1 (On license of [facility]) Body mass index (BMI) [Ratio] 33.54 kg/m2 33.54 kg/m2 eCW1 ([facility]) Heart rate 83 /min 83 /min eCW1 ([facility]) Respiratory rate 18 /min 18 /min eCW1 ([facility]) Body temperature 97.7 [degF] 97.7 [degF] eCW1 ( [facility] Body temperature 98.4 [degF] 98.4 [degF] eCW1 ( [facility]) Body weight 218 [lb_av] 218 [lb_av] eCW1 ([facility]) Systolic blood pressure 124 mm[Hg] 124 mm[Hg] e CW1 ([facility]) Body height 67.75 [in_i] 67.75 [in_i] eCW1 (On license of [facility]) Body mass index (BMI) [Ratio] 33.39 kg/m2 33.39 kg/m2 eCW1 ([facility]) Heart rate 73 /min 73 /min eCW1 ([facility]) Diastolic blood pressure 80 mm[Hg] 80 mm[Hg] eCW1 ([facility]) Respiratory rate 20 /min 20 /min eCW1 ([facility]) Body weight 218.4 [lb_av] 218.4 [lb_av] eCW1 ([facility]ly [facility], [facility]) Body height 67.75 [in_i] 67.75 [in_i] eCW1 (On license of [facility]) Body mass index (BMI) [Ratio] 33.45 kg/m2 33.45 kg/m2 W1 ([facility]) Heart rate 82 /min 82 /min eCW1 ([facility]) Respiratory rate 18 /min 18 /min eCW1 ([facility]) Body temperature 97.6 [degF] 97.6 [degF] eCW1 ( [facility]) Systolic blood pressure 118 mm[Hg] 118 mm[Hg] e CW1 ([facility]) Diastolic blood pressure 80 mm[Hg] 80 mm[Hg] eCW1 ([facility]) Oxygen saturation in Arterial blood by Pulse oximetry 95 % 95 % [facility] ([facility], ) Body weight 221.25 [lb_av] 221.25 [lb_av] MEDEN T ([facility], ) Body weight 100.359 kg 100.359 kg MEDENT ([facility]) Systolic blood pressure 118 mm[Hg] 118 mm[Hg] M EDENT ([facility], ) Diastolic blood pressure 62 mm[Hg] 62 mm[Hg] MEDENT ([facility], ) Heart rate 61 /min 61 /min MEDENT ([facility], ) Oxygen saturation in Arterial blood by Pulse oximetry 95 % 95 % [facility] ) Body weight 221.25 [lb_av] 221.25 [lb_av] MEDEN T ([facility], ) Body weight 100.359 kg 100.359 kg MEDENT ([facility], ) Body weight 213 [lb_av] 213 [lb_av] eCW1 ([facility]) Body height 67.75 [in_i] 67.75 [in_i] eCW1 (On license of [facility]) Body mass index (BMI) [Ratio] 32.62 kg/m2 32.62 kg/m2 eCW1 ([facility]) Heart rate 83 /min 83 /min eCW1 ([facility]) Respiratory rate 18 /min 18 /min eCW1 ([facility]) Body temperature 97.3 [degF] 97.3 [degF] eCW1 ( [facility]) Systolic blood pressure 124 mm[Hg] 124 mm[Hg] e CW1 ([facility]) Diastolic blood pressure 78 mm[Hg] 78 mm[Hg] eCW1 ([facility]) Body weight 212 [lb_av] 212 [lb_av] eCW1 ([facility]) Body height 67.75 [in_i] 67.75 [in_i] eCW1 (On license of [facility]) Body mass index (BMI) [Ratio] 32.47 kg/m2 32.47 kg/m2 eCW1 ([facility]) Heart rate 82 /min 82 /min eCW1 ([facility]) Respiratory rate 18 /min 18 /min eCW1 ([facility]) Body temperature 987.1 [degF] 987.1 [degF] eCW1 ([facility]) Systolic blood pressure 120 mm[Hg] 120 mm[Hg] e CW1 ([facility]) Diastolic blood pressure 70 mm[Hg] 70 mm[Hg] eCW1 ([facility]) Body weight 204 [lb_av] 204 [lb_av] eCW1 ([facility]) Body weight 92.53 kg 92.53 kg eCW1 ([facility]) Body height 67.75 [in_i] 67.75 [in_i] eCW1 (On license of [facility]) Body mass index (BMI) [Ratio] 31.24 kg/m2 31.24 kg/m2 eCW1 ([facility]) Systolic blood pressure 100 mm[Hg] 100 mm[Hg] e CW1 ([facility]) Diastolic blood pressure 60 mm[Hg] 60 mm[Hg] eCW1 ([facility]) Heart rate 78 /min 78 /min MEDENT ([facility]) Respiratory rate 16 /min 16 /min MEDENT ( [facility]) Oxygen saturation in Arterial blood by Pulse oximetry 99 % 99 % [facility]) Body temperature 98.7 [degF] 98.7 [degF] [facility] ([facility]) Body weight 220.00 [lb_av] 220.00 [lb_av] MEDEN T ([facility]) Body height 68 [in_i] 68 [in_i] [facility] ([facility]) 5'8" Systolic blood pressure 124 mm[Hg] 124 mm[Hg] [facility]) Body mass index (BMI) [Ratio] 33.4 kg/m2 33.4 k g/m2 [facility] ([facility] [facility] Diastolic blood pressure 80 mm[Hg] 80 mm[Hg] [facility] ([facility]) Systolic blood pressure 104 mm[Hg] 104 mm[Hg] [facility] ([facility]) Diastolic blood pressure 74 mm[Hg] 74 mm[Hg] [facility] ([facility]) Heart rate 89 /min 89 /min [facility] ([facility]) Oxygen saturation in Arterial blood by Pulse oximetry 95 % 95 % [facility] ([facility]) Body height 68 [in_i] 68 [in_i] [facility] ([facility]) 5'8" Body weight 212.00 [lb_av] 212.00 [lb_av] [facility] Body mass index (BMI) [Ratio] 32.2 kg/m2 32.2 k g/m2 [facility] ([facility]) Bruin body weight 140 [lb_av] 140 [lb_av] [facility] T ([facility]) Body weight 96.163 kg 96.163 kg [facility] ([facility]) Body surface area Derived from formula 2.09 m2 2.09 m2 [facility] ([facility]) Body weight 211.2 [lb_av] 211.2 [lb_av] eCW1 (Formerly [facility], 1928–1983) Body height 67.75 [in_i] 67.75 [in_i] eCW1 (On license of [facility]) Body mass index (BMI) [Ratio] 32.35 kg/m2 32.35 kg/m2 eCW1 ([facility]) Heart rate 79 /min 79 /min eCW1 ([facility]) Respiratory rate 20 /min 20 /min eCW1 ([facility]) Body temperature 98.8 [degF] 98.8 [degF] eCW1 ( [facility]) Systolic blood pressure 120 mm[Hg] 120 mm[Hg] e CW1 ([facility]) Diastolic blood pressure 82 mm[Hg] 82 mm[Hg] eCW1 ([facility]) Body weight 211.2 [lb_av] 211.2 [lb_av] eCW1 (Formerly [facility], 1928–1983) Body height 67.75 [in_i] 67.75 [in_i] eCW1 (On license of [facility]) Body mass index (BMI) [Ratio] 32.35 kg/m2 32.35 kg/m2 eCW1 ([facility]) Heart rate 79 /min 79 /min eCW1 ([facility]) Respiratory rate 20 /min 20 /min eCW1 ([facility]) Body temperature 98.8 [degF] 98.8 [degF] eCW1 ( [facility]) Systolic blood pressure 120 mm[Hg] 120 mm[Hg] e CW1 ([facility]) Diastolic blood pressure 82 mm[Hg] 82 mm[Hg] eCW1 ([facility]) Respiratory rate 20 /min 20 /min [facility] ( [facility], [facility]) Body temperature 98.0 [degF] 98.0 [degF] [facility] ([facility], [facility]) Body weight 220.00 [lb_av] 220.00 [lb_av] [facility] T ([facility], [facility]) Body height 68 [in_i] 68 [in_i] [facility] ([facility], [facility]) 5'8" Systolic blood pressure 132 mm[Hg] 132 mm[Hg] M EDENT ([facility], [facility]) Diastolic blood pressure 80 mm[Hg] 80 mm[Hg] [facility] ([facility], [facility]) Body mass index (BMI) [Ratio] 33.4 kg/m2 33.4 k g/m2 [facility] ([facility], [facility]) Oxygen saturation in Arterial blood by Pulse oximetry 97 % 97 % [facility] ([facility], [facility]) Heart rate 66 /min 66 /min [facility] ([facility], [facility]) Systolic blood pressure 135 mm[Hg] 135 mm[Hg] M EDENT ([facility], [facility]) Diastolic blood pressure 76 mm[Hg] 76 mm[Hg] [facility] ([facility], [facility]) Heart rate 96 /min 96 /min [facility] ([facility], [facility]) Respiratory rate 16 /min 16 /min MED[facility] ( [facility], [facility]) Oxygen saturation in Arterial blood by Pulse oximetry 98 % 98 % [facility] ([facility], [facility]) Body temperature 98.3 [degF] 98.3 [degF] [facility] ([facility], [facility]) Body weight 220.00 [lb_av] 220.00 [lb_av] MEDEN T ([facility], [facility]) Body height 68 [in_i] 68 [in_i] MED[facility] ([facility], [facility]) 5'8" Body mass index (BMI) [Ratio] 33.4 kg/m2 33.4 k g/m2 [facility] ([facility], [facility]) Body weight 209 [lb_av] 209 [lb_av] eCW1 ([facility]) Body height 67.75 [in_i] 67.75 [in_i] eCW1 (On license of [facility]) Body mass index (BMI) [Ratio] 32.01 kg/m2 32.01 kg/m2 W1 ([facility]) Heart rate 96 /min 96 /min eCW1 ([facility]) Respiratory rate 18 /min 18 /min eCW1 ([facility]) Body temperature 99.1 [degF] 99.1 [degF] eCW1 ( [facility]) Systolic blood pressure 130 mm[Hg] 130 mm[Hg] e CW1 ([facility]) Diastolic blood pressure 98 mm[Hg] 98 mm[Hg] eCW1 ([facility]) Body temperature 98.6 [degF] 98.6 [degF] eCW1 ( [facility]) Body weight 209.0 [lb_av] 209.0 [lb_av] eCW1 (Formerly [facility], 1928–1983) Body height 67.75 [in_i] 67.75 [in_i] eCW1 (On license of [facility]) Body mass index (BMI) [Ratio] 32.01 kg/m2 32.01 kg/m2 eCW1 ([facility]) Heart rate 62 /min 62 /min eCW1 ([facility]) Respiratory rate 18 /min 18 /min eCW1 ([facility]) Systolic blood pressure 150 mm[Hg] 150 mm[Hg] e CW1 ([facility]) Diastolic blood pressure 92 mm[Hg] 92 mm[Hg] eCW1 ([facility]) Systolic blood pressure 130 mm[Hg] 130 mm[Hg] M EDENT ([facility], [facility]) Diastolic blood pressure 80 mm[Hg] 80 mm[Hg] [facility] ([facility]) Heart rate 61 /min 61 /min MED[facility] ([facility], [facility]) Respiratory rate 16 /min 16 /min [facility] ( [facility], [facility]) Oxygen saturation in Arterial blood by Pulse oximetry 96 % 96 % [facility] ([facility], [facility]) Body temperature 98.2 [degF] 98.2 [degF] [facility] ([facility], [facility]) Body weight 220.00 [lb_av] 220.00 [lb_av] MED[facility] T ([facility], [facility]) Body height 68 [in_i] 68 [in_i] MEDENT ([facility], [facility]) 5'8" Body mass index (BMI) [Ratio] 33.4 kg/m2 33.4 k g/m2 [facility] ([facility], [facility]) Body weight 211.0 [lb_av] 211.0 [lb_av] eCW1 (Formerly [facility], [facility]) Body weight 211.0 [lb_av] 211.0 [lb_av] eCW1 ([facility]ly [facility], [facility]) Body height 67.75 [in_i] 67.75 [in_i] eCW1 (On license of [facility]) Body mass index (BMI) [Ratio] 32.32 kg/m2 32.32 kg/m2 eCW1 ([facility]) Heart rate 80 /min 80 /min eCW1 ([facility]) Respiratory rate 20 /min 20 /min eCW1 ([facility]) Body temperature 97.2 [degF] 97.2 [degF] eCW1 ( [facility]) Systolic blood pressure 132 mm[Hg] 132 mm[Hg] e CW1 ([facility]) Diastolic blood pressure 80 mm[Hg] 80 mm[Hg] eCW1 ([facility]) Body height 67.75 [in_i] 67.75 [in_i] eCW1 (On license of [facility]) Body mass index (BMI) [Ratio] 32.32 kg/m2 32.32 kg/m2 eCW1 ([facility]) Heart rate 80 /min 80 /min eCW1 ([facility]) Respiratory rate 20 /min 20 /min eCW1 ([facility]) Body temperature 97.2 [degF] 97.2 [degF] eCW1 ( [facility]) Systolic blood pressure 132 mm[Hg] 132 mm[Hg] e CW1 ([facility]) Diastolic blood pressure 80 mm[Hg] 80 mm[Hg] eCW1 ([facility]) Body temperature 96.7 [degF] 96.7 [degF] [facility] ([facility] ) ID Date Data Source [id number] 06/23/2020 07:31:41 AM [facility] Hospital Name Value Range Interpretation Code Description Data Source(s) [facility] Plan [facility] Care Planned Activity Planned Date Details Description Data Source (s) tramadol hydrochloride 50 MG Oral Tablet 04/01/2021 12:00:00 AM EST eCW1 ([facility]) tramadol hydrochloride 50 MG Oral Tablet 04/01/2021 12:00:00 AM EST eCW1 ([facility]) tramadol hydrochloride 50 MG Oral Tablet 04/01/2021 12:00:00 AM EST eCW1 ([facility]) tramadol hydrochloride 50 MG Oral Tablet 04/01/2021 12:00:00 AM EST eCW1 ([facility]) 168 HR Buprenorphine 0.01 MG/HR Transdermal Patch [BuT rans] 03/30/2021 12:00:00 AM EST eCW1 ([facility]) 168 HR Buprenorphine 0.01 MG/HR Transdermal Patch [BuT rans] 03/30/2021 12:00:00 AM EST eCW1 ([facility]) 168 HR Buprenorphine 0.01 MG/HR Transdermal Patch [BuT rans] 03/30/2021 12:00:00 AM EST eCW1 ([facility]) 168 HR Buprenorphine 0.01 MG/HR Transdermal Patch [BuT rans] 03/30/2021 12:00:00 AM EST eCW1 ([facility]) 168 HR Buprenorphine 0.01 MG/HR Transdermal Patch [BuT rans] 03/30/2021 12:00:00 AM EST eCW1 ([facility]) 168 HR Buprenorphine 0.01 MG/HR Transdermal Patch [BuT rans] 03/30/2021 12:00:00 AM EST eCW1 ([facility]) tramadol hydrochloride 50 MG Oral Tablet 03/27/2021 12:00:00 AM EST eCW1 ([facility]) tramadol hydrochloride 50 MG Oral Tablet 03/27/2021 12:00:00 AM EST eCW1 ([facility]) 24 HR tramadol hydrochloride 100 MG Extended Release O ral Tablet 03/25/2021 12:00:00 AM EST eCW1 ([facility]) 24 HR tramadol hydrochloride 100 MG Extended Release O ral Tablet 03/25/2021 12:00:00 AM EST eCW1 ([facility]) [place] 75 MCG 03/24/2021 12:00:00 AM EST eCW1 ([facility]) [place] 75 MCG 03/24/2021 12:00:00 AM EST eCW1 ([facility]) [place] 75 MCG 03/24/2021 12:00:00 AM EST eCW1 ([facility]) [place] 75 MCG 03/24/2021 12:00:00 AM EST eCW1 ([facility]) [place] 75 MCG 03/24/2021 12:00:00 AM EST eCW1 ([facility]) [place] 75 MCG 03/24/2021 12:00:00 AM EST eCW1 ([facility]) [place] 75 MCG 03/24/2021 12:00:00 AM EST eCW1 ([facility]) [place] 75 MCG 03/24/2021 12:00:00 AM EST eCW1 ([facility]) [place] 75 MCG 03/24/2021 12:00:00 AM EST eCW1 ([facility]) [place] 75 MCG 03/24/2021 12:00:00 AM EST eCW1 ([facility]) tramadol hydrochloride 50 MG Oral Tablet 02/20/2021 12:00:00 AM EDT eCW1 ([facility]) tramadol hydrochloride 50 MG Oral Tablet 02/20/2021 12:00:00 AM EDT eCW1 ([facility]) tramadol hydrochloride 50 MG Oral Tablet 02/20/2021 12:00:00 AM EDT eCW1 ([facility]) tramadol hydrochloride 50 MG Oral Tablet 02/20/2021 12:00:00 AM EDT eCW1 ([facility]) tramadol hydrochloride 50 MG Oral Tablet 02/20/2021 12:00:00 AM EDT eCW1 ([facility]) tramadol hydrochloride 50 MG Oral Tablet 02/20/2021 12:00:00 AM EDT eCW1 ([facility]) Liraglutide 18 MG/3ML 02/19/2021 12:00:00 AM EDT eCW1 ([facility]) Liraglutide 18 MG/3ML 02/19/2021 12:00:00 AM EDT eCW1 ([facility]) Liraglutide 18 MG/3ML 02/19/2021 12:00:00 AM EDT eCW1 ([facility]) Liraglutide 18 MG/3ML 02/19/2021 12:00:00 AM EDT eCW1 ([facility]) Liraglutide 18 MG/3ML 02/19/2021 12:00:00 AM EDT eCW1 ([facility]) Liraglutide 18 MG/3ML 02/19/2021 12:00:00 AM EDT eCW1 ([facility]) Liraglutide 18 MG/3ML 02/19/2021 12:00:00 AM EDT eCW1 ([facility]) Liraglutide 18 MG/3ML 02/19/2021 12:00:00 AM EDT eCW1 ([facility]) Liraglutide 18 MG/3ML 02/19/2021 12:00:00 AM EDT eCW1 ([facility]) Liraglutide 18 MG/3ML 02/19/2021 12:00:00 AM EDT eCW1 ([facility]) Liraglutide 18 MG/3ML 02/19/2021 12:00:00 AM EDT eCW1 ([facility]) Liraglutide 18 MG/3ML 02/19/2021 12:00:00 AM EDT eCW1 ([facility]) Liraglutide 18 MG/3ML 02/19/2021 12:00:00 AM EDT eCW1 ([facility]) Liraglutide 18 MG/3ML 02/19/2021 12:00:00 AM EDT eCW1 ([facility]) [place] 75 MCG 02/19/2021 12:00:00 AM EDT eCW1 ([facility]) Liraglutide 18 MG/3ML 02/19/2021 12:00:00 AM EDT eCW1 ([facility]) Liraglutide 18 MG/3ML 02/19/2021 12:00:00 AM EDT eCW1 ([facility]) Liraglutide 18 MG/3ML 02/19/2021 12:00:00 AM EDT eCW1 ([facility]) Nortriptyline 25 MG Oral Capsule 11/11/2020 12:00:00 AM EDT eCW1 ([facility]) Nortriptyline 25 MG Oral Capsule 11/11/2020 12:00:00 AM EDT eCW1 ([facility]) Nortriptyline 25 MG Oral Capsule 11/11/2020 12:00:00 AM EDT eCW1 ([facility]) Nortriptyline 25 MG Oral Capsule 11/11/2020 12:00:00 AM EDT eCW1 ([facility]) Nortriptyline 25 MG Oral Capsule 11/11/2020 12:00:00 AM EDT eCW1 ([facility]) Nortriptyline 25 MG Oral Capsule 11/11/2020 12:00:00 AM EDT eCW1 ([facility]) Nortriptyline 25 MG Oral Capsule 11/11/2020 12:00:00 AM EDT eCW1 ([facility]) Nortriptyline 25 MG Oral Capsule 11/11/2020 12:00:00 AM EDT eCW1 ([facility]) Nortriptyline 25 MG Oral Capsule 11/11/2020 12:00:00 AM EDT eCW1 ([facility]) Nortriptyline 25 MG Oral Capsule 11/11/2020 12:00:00 AM EDT eCW1 ([facility]) Chlorthalidone 25 MG Oral Tablet 11/06/2020 12:00:00 AM EDT eCW1 ([facility]) Chlorthalidone 25 MG Oral Tablet 11/06/2020 12:00:00 AM EDT eCW1 ([facility]) Chlorthalidone 25 MG Oral Tablet 11/06/2020 12:00:00 AM EDT eCW1 ([facility]) Sucralfate 100 MG/ML Oral Suspension [Carafate] 08/19/2020 12:00:00 AM EDT eCW1 ([facility]) lansoprazole 30 MG Delayed Release Oral Capsule 08/19/2020 12:00:00 AM EDT eCW1 ([facility]) PARoxetine HCl 10 MG 08/19/2020 12:00:00 AM EDT eCW1 ([facility]) Sucralfate 100 MG/ML Oral Suspension [Carafate] 08/19/2020 12:00:00 AM EDT eCW1 ([facility]) lansoprazole 30 MG Delayed Release Oral Capsule 08/19/2020 12:00:00 AM EDT eCW1 ([facility]) Paroxetine HCl 10 MG 08/19/2020 12:00:00 AM EDT eCW1 ([facility]) Sucralfate 100 MG/ML Oral Suspension [Carafate] 08/19/2020 12:00:00 AM EDT eCW1 ([facility]) lansoprazole 30 MG Delayed Release Oral Capsule 08/19/2020 12:00:00 AM EDT eCW1 ([facility]) Paroxetine HCl 10 MG 08/19/2020 12:00:00 AM EDT eCW1 ([facility]) Sucralfate 100 MG/ML Oral Suspension [Carafate] 08/19/2020 12:00:00 AM EDT eCW1 ([facility]) lansoprazole 30 MG Delayed Release Oral Capsule 08/19/2020 12:00:00 AM EDT eCW1 ([facility]) Paroxetine HCl 10 MG 08/19/2020 12:00:00 AM EDT eCW1 ([facility]) Sucralfate 100 MG/ML Oral Suspension [Carafate] 08/19/2020 12:00:00 AM EDT eCW1 ([facility]) Paroxetine HCl 10 MG 08/19/2020 12:00:00 AM EDT eCW1 ([facility]) lansoprazole 30 MG Delayed Release Oral Capsule 08/19/2020 12:00:00 AM EDT eCW1 ([facility]) Paroxetine HCl 10 MG 08/19/2020 12:00:00 AM EDT eCW1 ([facility]) Sucralfate 100 MG/ML Oral Suspension [Carafate] 08/19/2020 12:00:00 AM EDT eCW1 ([facility]) lansoprazole 30 MG Delayed Release Oral Capsule 08/19/2020 12:00:00 AM EDT eCW1 ([facility]) Paroxetine HCl 10 MG 08/19/2020 12:00:00 AM EDT eCW1 ([facility]) Sucralfate 100 MG/ML Oral Suspension [Carafate] 08/19/2020 12:00:00 AM EDT eCW1 ([facility]) lansoprazole 30 MG Delayed Release Oral Capsule 08/19/2020 12:00:00 AM EDT eCW1 ([facility]) Paroxetine HCl 10 MG 08/19/2020 12:00:00 AM EDT eCW1 ([facility]) lansoprazole 30 MG Delayed Release Oral Capsule 08/19/2020 12:00:00 AM EDT eCW1 ([facility]) Sucralfate 100 MG/ML Oral Suspension [Carafate] 08/19/2020 12:00:00 AM EDT eCW1 ([facility]) Estradiol 0.1 MG/ML Vaginal Cream 08/11/2020 12:00:00 AM EDT eCW1 ([facility]) Estradiol 0.1 MG/ML Vaginal Cream 08/11/2020 12:00:00 AM EDT eCW1 ([facility]) Estradiol 0.1 MG/ML Vaginal Cream 08/11/2020 12:00:00 AM EDT eCW1 ([facility]) Phenazopyridine hydrochloride 200 MG Oral Tablet 08/08/2020 12:00:0 0 AM EDT eCW1 ([facility]) Ciprofloxacin 500 MG Oral Tablet [Cipro] 08/08/2020 12:00:00 AM EDT eCW1 ([facility]) Phenazopyridine hydrochloride 200 MG Oral Tablet 08/08/2020 12:00:0 0 AM EDT eCW1 ([facility]) Ciprofloxacin 500 MG Oral Tablet [Cipro] 08/08/2020 12:00:00 AM EDT eCW1 ([facility]) Phenazopyridine hydrochloride 200 MG Oral Tablet 08/08/2020 12:00:0 0 AM EDT eCW1 ([facility]) Ciprofloxacin 500 MG Oral Tablet [Cipro] 08/08/2020 12:00:00 AM EDT eCW1 ([facility]) Phenazopyridine hydrochloride 200 MG Oral Tablet 08/08/2020 12:00:0 0 AM EDT eCW1 ([facility]) Ciprofloxacin 500 MG Oral Tablet [Cipro] 08/08/2020 12:00:00 AM EDT eCW1 ([facility]) Ondansetron 4 MG Disintegrating Oral Tablet 07/07/2020 12:00:00 AM EST eCW1 ([facility]) Ondansetron 4 MG Disintegrating Oral Tablet 07/07/2020 12:00:00 AM EST eCW1 ([facility]) Ondansetron 4 MG Disintegrating Oral Tablet 07/07/2020 12:00:00 AM EST eCW1 ([facility]) Ondansetron 4 MG Disintegrating Oral Tablet 07/07/2020 12:00:00 AM EST eCW1 ([facility]) Ondansetron 4 MG Disintegrating Oral Tablet 07/07/2020 12:00:00 AM EST eCW1 ([facility]) Ondansetron 4 MG Disintegrating Oral Tablet 07/07/2020 12:00:00 AM EST eCW1 ([facility]) Ondansetron 4 MG Disintegrating Oral Tablet 07/07/2020 12:00:00 AM EST eCW1 ([facility]) Ondansetron 4 MG Disintegrating Oral Tablet 07/07/2020 12:00:00 AM EST eCW1 ([facility]) Ondansetron 4 MG Disintegrating Oral Tablet 07/07/2020 12:00:00 AM EST eCW1 ([facility]) gabapentin 100 MG Oral Capsule 06/30/2020 12:00:00 AM EST eCW1 ([facility]) gabapentin 100 MG Oral Capsule 06/30/2020 12:00:00 AM EST eCW1 ([facility]) gabapentin 100 MG Oral Capsule 06/30/2020 12:00:00 AM EST eCW1 ([facility]) gabapentin 100 MG Oral Capsule 06/30/2020 12:00:00 AM EST eCW1 ([facility]) gabapentin 100 MG Oral Capsule 06/30/2020 12:00:00 AM EST eCW1 ([facility]) gabapentin 100 MG Oral Capsule 06/30/2020 12:00:00 AM EST eCW1 ([facility]) gabapentin 100 MG Oral Capsule 06/30/2020 12:00:00 AM EST eCW1 ([facility]) gabapentin 100 MG Oral Capsule 06/30/2020 12:00:00 AM EST eCW1 ([facility]) gabapentin 100 MG Oral Capsule 06/30/2020 12:00:00 AM EST eCW1 ([facility]) PredniSONE ([place]) 10mg 06/23/2020 12:00:00 AM EST eCW1 ([facility]) PredniSONE ([place]) 10mg 06/23/2020 12:00:00 AM EST eCW1 ([facility]) PredniSONE ([place]) 10mg 06/23/2020 12:00:00 AM EST eCW1 ([facility]) PredniSONE ([place]) 10mg 06/23/2020 12:00:00 AM EST eCW1 ([facility]) PredniSONE ([place]) 10mg 06/23/2020 12:00:00 AM EST eCW1 ([facility]) PredniSONE ([place]) 10mg 06/23/2020 12:00:00 AM EST eCW1 ([facility]) PredniSONE ([place]) 10mg 06/23/2020 12:00:00 AM EST eCW1 ([facility]) PredniSONE ([place]) 10mg 06/23/2020 12:00:00 AM EST eCW1 ([facility]) PredniSONE ([place]) 10mg 06/23/2020 12:00:00 AM EST eCW1 ([facility]) Sodium Chloride 0.111 MEQ/ML Nasal [place] [[place] brand of sodium chloride] 06/20/2020 12:00:00 AM EST eCW1 ([facility]) Sodium Chloride 0.111 MEQ/ML Nasal [place] [[place] brand of sodium chloride] 06/20/2020 12:00:00 AM EST eCW1 ([facility]) Sodium Chloride 0.111 MEQ/ML Nasal [place] [[place] brand of sodium chloride] 06/20/2020 12:00:00 AM EST eCW1 ([facility]) duloxetine 30 MG Delayed Release Oral Capsule 05/19/2020 12:00:00 A M EST eCW1 ([facility]) duloxetine 30 MG Delayed Release Oral Capsule 05/19/2020 12:00:00 A M EST eCW1 ([facility]) duloxetine 30 MG Delayed Release Oral Capsule 05/19/2020 12:00:00 A M EST eCW1 ([facility]) duloxetine 30 MG Delayed Release Oral Capsule 05/19/2020 12:00:00 A M EST eCW1 ([facility]) duloxetine 30 MG Delayed Release Oral Capsule 05/19/2020 12:00:00 A M EST eCW1 ([facility]) duloxetine 30 MG Delayed Release Oral Capsule 05/19/2020 12:00:00 A M EST eCW1 ([facility]) duloxetine 30 MG Delayed Release Oral Capsule 05/19/2020 12:00:00 A M EST eCW1 ([facility]) duloxetine 30 MG Delayed Release Oral Capsule 05/19/2020 12:00:00 A M EST eCW1 ([facility]) duloxetine 30 MG Delayed Release Oral Capsule 05/19/2020 12:00:00 A M EST eCW1 ([facility]) duloxetine 30 MG Delayed Release Oral Capsule 05/19/2020 12:00:00 A M EST eCW1 ([facility]) duloxetine 30 MG Delayed Release Oral Capsule 05/19/2020 12:00:00 A M EST eCW1 ([facility]) telmisartan 20 MG Oral Tablet 05/01/2020 12:00:00 AM EST eCW1 ([facility]) telmisartan 20 MG Oral Tablet 05/01/2020 12:00:00 AM EST eCW1 ([facility]) telmisartan 20 MG Oral Tablet 05/01/2020 12:00:00 AM EST eCW1 ([facility]) telmisartan 20 MG Oral Tablet 05/01/2020 12:00:00 AM EST eCW1 ([facility]) telmisartan 20 MG Oral Tablet 05/01/2020 12:00:00 AM EST eCW1 ([facility]) telmisartan 20 MG Oral Tablet 05/01/2020 12:00:00 AM EST eCW1 ([facility]) telmisartan 20 MG Oral Tablet 05/01/2020 12:00:00 AM EST eCW1 ([facility]) telmisartan 20 MG Oral Tablet 05/01/2020 12:00:00 AM EST eCW1 ([facility]) telmisartan 20 MG Oral Tablet 05/01/2020 12:00:00 AM EST eCW1 ([facility]) telmisartan 20 MG Oral Tablet 05/01/2020 12:00:00 AM EST eCW1 ([facility]) telmisartan 20 MG Oral Tablet 05/01/2020 12:00:00 AM EST eCW1 ([facility]) telmisartan 20 MG Oral Tablet 05/01/2020 12:00:00 AM EST eCW1 ([facility]) telmisartan 20 MG Oral Tablet 05/01/2020 12:00:00 AM EST eCW1 ([facility]) telmisartan 20 MG Oral Tablet 05/01/2020 12:00:00 AM EST eCW1 ([facility]) telmisartan 20 MG Oral Tablet 05/01/2020 12:00:00 AM EST eCW1 ([facility]) telmisartan 20 MG Oral Tablet 05/01/2020 12:00:00 AM EST eCW1 ([facility]) Nebulizer - 04/21/2020 12:00:00 AM EST e CW1 ([facility]) Albuterol 0.83 MG/ML Inhalant Solution 04/21/2020 12:00:00 AM EST eCW1 ([facility]) Nebulizer/Tubing/Mouthpiece - 04/21/2020 12:00:00 AM EST eCW1 ([facility]) Nebulizer - 04/21/2020 12:00:00 AM EST e CW1 ([facility]) Albuterol 0.83 MG/ML Inhalant Solution 04/21/2020 12:00:00 AM EST eCW1 ([facility]) Nebulizer/Tubing/Mouthpiece - 04/21/2020 12:00:00 AM EST eCW1 ([facility]) Nebulizer - 04/21/2020 12:00:00 AM EST e CW1 ([facility]) Albuterol 0.83 MG/ML Inhalant Solution 04/21/2020 12:00:00 AM EST eCW1 ([facility]) Nebulizer/Tubing/Mouthpiece - 04/21/2020 12:00:00 AM EST eCW1 ([facility]) Nebulizer - 04/21/2020 12:00:00 AM EST e CW1 ([facility]) Albuterol 0.83 MG/ML Inhalant Solution 04/21/2020 12:00:00 AM EST eCW1 ([facility]) Nebulizer/Tubing/Mouthpiece - 04/21/2020 12:00:00 AM EST eCW1 ([facility]) Albuterol 0.83 MG/ML Inhalant Solution 04/21/2020 12:00:00 AM EST eCW1 ([facility]) Nebulizer/Tubing/Mouthpiece - 04/21/2020 12:00:00 AM EST eCW1 ([facility]) Nebulizer - 04/21/2020 12:00:00 AM EST e CW1 ([facility]) Amlodipine 2.5 MG Oral Tablet 04/21/2020 12:00:00 AM EST eCW1 ([facility]) Albuterol 0.83 MG/ML Inhalant Solution 04/21/2020 12:00:00 AM EST eCW1 ([facility]) Nebulizer - 04/21/2020 12:00:00 AM EST [facility] Nebulizer/Tubing/Mouthpiece - 04/21/2020 12:00:00 AM EST [email or web address]) duloxetine 30 MG Delayed Release Oral Capsule 03/25/2020 12:00:00 A M EST [email or web address] ([facility]) duloxetine 30 MG Delayed Release Oral Capsule 03/25/2020 12:00:00 A M EST [facility]) duloxetine 30 MG Delayed Release Oral Capsule 03/25/2020 12:00:00 A M EST [facility]) carvedilol 12.5 MG Oral Tablet 03/17/2020 12:00:00 AM EST [facility] ([facility]) carvedilol 12.5 MG Oral Tablet 03/17/2020 12:00:00 AM EST [facility] ([facility]) carvedilol 12.5 MG Oral Tablet 03/17/2020 12:00:00 AM EST [facility] ([facility]) carvedilol 12.5 MG Oral Tablet 03/17/2020 12:00:00 AM EST [facility] ([facility]) carvedilol 12.5 MG Oral Tablet 03/17/2020 12:00:00 AM EST [facility] ([facility]) carvedilol 12.5 MG Oral Tablet 03/17/2020 12:00:00 AM EST [facility] ([facility]) carvedilol 12.5 MG Oral Tablet 03/17/2020 12:00:00 AM EST [facility] ([facility]) carvedilol 12.5 MG Oral Tablet 03/17/2020 12:00:00 AM EST [facility] ([facility]) carvedilol 12.5 MG Oral Tablet 03/17/2020 12:00:00 AM EST [facility] ([facility]) carvedilol 12.5 MG Oral Tablet 03/17/2020 12:00:00 AM EST [facility] ([facility]) carvedilol 12.5 MG Oral Tablet 03/17/2020 12:00:00 AM EST [facility] ([facility]) carvedilol 12.5 MG Oral Tablet 03/17/2020 12:00:00 AM EST [facility] ([facility]) carvedilol 12.5 MG Oral Tablet 03/17/2020 12:00:00 AM EST [facility] ([facility]) carvedilol 12.5 MG Oral Tablet 03/17/2020 12:00:00 AM EST [facility] ([facility]) carvedilol 6.25 MG Oral Tablet 03/17/2020 12:00:00 AM EST [facility] ([facility]) carvedilol 6.25 MG Oral Tablet 03/17/2020 12:00:00 AM EST [facility] ([facility]) carvedilol 12.5 MG Oral Tablet 03/17/2020 12:00:00 AM EST [facility] ([facility]) carvedilol 12.5 MG Oral Tablet 03/17/2020 12:00:00 AM EST [facility] ([facility]) carvedilol 12.5 MG Oral Tablet 03/17/2020 12:00:00 AM EST [facility] ([facility]) carvedilol 6.25 MG Oral Tablet 03/17/2020 12:00:00 AM EST [facility] ([facility]) carvedilol 6.25 MG Oral Tablet 03/17/2020 12:00:00 AM EST [facility] ([facility]) carvedilol 6.25 MG Oral Tablet 03/17/2020 12:00:00 AM EST [facility] ([facility]) carvedilol 6.25 MG Oral Tablet 03/17/2020 12:00:00 AM EST [facility] ([facility]) carvedilol 6.25 MG Oral Tablet 03/17/2020 12:00:00 AM EST [facility] ([facility]) carvedilol 6.25 MG Oral Tablet 03/17/2020 12:00:00 AM EST [facility] ([facility]) carvedilol 6.25 MG Oral Tablet 03/17/2020 12:00:00 AM EST [facility] ([facility]) 168 HR Buprenorphine 0.005 MG/HR Transdermal Patch [Bu Trans] 02/28/2020 12:00:00 AM EDT eCW1 ([facility]) 168 HR Buprenorphine 0.005 MG/HR Transdermal Patch [Bu Trans] 02/28/2020 12:00:00 AM EDT eCW1 ([facility])
[2021-04-20 15:39] LABS: BASO % 0.2 % (0.0-1.0); HEMOGLOBIN 15.9 g/dl (12.0-15.5); LYMPH # 1.9 10^3/uL (1.5-5.0); LYMPH % 15.8 % (24.0-44.0); MEAN CORPUSCULAR HEMOGLOBIN 31.3 pg (27.0-33.0); MEAN CORPUSCULAR HGB CONC 33.1 g/dl (32.0-36.5); MEAN CORPUSCULAR VOLUME 94.5 fl (80.0-96.0); MONO # 0.5 10^3/uL (0.0-0.8); NEUTROPHILS # 9.4 10^3/uL (1.5-8.5); NEUTROPHILS % 79.6 % (36.0-66.0); PLATELET COUNT, AUTOMATED 269 10^3/uL (150-450); RED BLOOD COUNT 5.08 10^6/uL (4.00-5.40); WHITE BLOOD COUNT 11.8 10^3/uL (4.0-10.0)
[2021-04-20 16:04] LABS: CK-MB VALUE MASS 2.5 NG/ML (<3.6); MB/CK RELATIVE INDEX 2.98 (< OR =4)
--- NOTE | 2021-04-20 16:04 | REP ---
INDICATION: DYSPNEA/COUGH. COMPARISON: 04/18/2021. TECHNIQUE: Single portable AP view of the chest was performed. FINDINGS: There are stable bibasilar fibro atelectatic changes. The heart does not appear to be significantly enlarged. The mediastinal silhouette is unchanged. IMPRESSION: No acute pulmonary disease.Stable bibasilar fibro atelectatic changes. <Electronically signed by Solomon Hubbard > 04/20/21 1600
[2021-04-20 16:09] LABS: ALBUMIN 3.7 GM/DL (3.2-5.2); ALT/SGPT 22 U/L (12-78); BILIRUBIN,DIRECT < 0.1 MG/DL (0.0-0.2); BILIRUBIN,TOTAL 0.3 MG/DL (0.2-1.0); BLOOD UREA NITROGEN 21 MG/DL (7-18); CALCIUM LEVEL 9.8 MG/DL (8.8-10.2); CARBON DIOXIDE LEVEL 28 MEQ/L (21-32); CHLORIDE LEVEL 106 MEQ/L (98-107); CREATININE FOR GFR 0.92 MG/DL (0.55-1.30); GLOMERULAR FILTRATION RATE > 60.0 (>45); GLUCOSE, FASTING 131 MG/DL (70-100); LIPASE 121 U/L (73-393); NT-PRO BNP 356 PG/ML (<125); POTASSIUM SERUM 3.5 MEQ/L (3.5-5.1); SODIUM LEVEL 141 MEQ/L (136-145); THYROID STIMULATING HORMONE 0.339 uIU/ML (0.358-3.740); TOTAL PROTEIN 7.2 GM/DL (6.4-8.2)
--- NOTE | 2021-04-20 16:15 | REP ---
INDICATION: upper abd pain COMPARISON: 08/14/2020. TECHNIQUE: CT Scan of the abdomen and pelvis was performed without intravenous contrast. Sagittal and coronal reconstruction images performed. FINDINGS: Lung bases: There are bibasilar fibro atelectatic changes. Liver: Grossly unremarkable. Gallbladder: Unremarkable. Spleen: Prior partial splenectomy.. Adrenals: Normal. Pancreas: Grossly unremarkable.. Kidneys: There is no hydronephrosis bilaterally. There is a cyst in the upper pole the right kidney approximately 2 cm in diameter and another in the upper pole the left kidney approximately 5.3 cm in diameter. There is a 3 mm calcification in the mid left renal collecting system. Small and large bowel: There is sigmoid diverticulosis without acute diverticulitis. There is no free air or obstruction. Free fluid: None. Abdominal aorta: No aneurysm. Adenopathy: None. Appendix: Not inflamed. Osseous structures: There are mild degenerative changes of the spine without compression deformity. Pelvis: No mass. No bladder calculus seen. There is a tiny amount of air in the bladder. There is a small umbilical hernia containing noninflamed fat. IMPRESSION: No acute abnormalities, as discussed above. <Electronically signed by Solomon Hubbard > 04/20/21 [id number]
[2021-04-20] MEDS ORDERED: cefTRIAXone SOD 1 GM in D5W MINI-BAG PLUS 50 ML IV ONE (16:55)
[2021-04-20] MEDS ORDERED: AZITHROMYCIN INJ 500 MG, VIAL MATE ADAPTER 1 EACH in NS 250 ML IV ONE (16:55)
[2021-04-20] MEDS ORDERED: traMADol 50 MG TAB PO ONE (17:00)
--- OUTSIDE RECORDS SUMMARY | 2021-04-20 17:08 | CCD ---
Author Author [facility] Organization [facility] Address Unknown Phone Unavailable Care Team Providers Care Yarn Examiner Name Role Phone Shepard, Amanda ANIMAL REHABILITATOR Unavailable Unavailable Shepard, Amanda ANIMAL REHABILITATOR Unavailable Unavailable Shepard, Amanda ANIMAL REHABILITATOR Unavailable Unavailable Shepard, Amanda ANIMAL REHABILITATOR Unavailable Unavailable Shepard, Amanda ANIMAL REHABILITATOR Unavailable Unavailable Shepard, Amanda ANIMAL REHABILITATOR Unavailable Unavailable Shepard, Amanda ANIMAL REHABILITATOR Unavailable Unavailable Shepard, Amanda ANIMAL REHABILITATOR Unavailable Unavailable Shepard, Amanda ANIMAL REHABILITATOR Unavailable Unavailable Shepard, Amanda ANIMAL REHABILITATOR Unavailable Unavailable Shepard, Amanda ANIMAL REHABILITATOR Unavailable Unavailable Shepard, Amanda ANIMAL REHABILITATOR Unavailable Unavailable Shepard, Amanda ANIMAL REHABILITATOR Unavailable Unavailable SYSTEM IN, NOT IN PROVIDER [...] e FishLigia, PA-C Unavailable Unavailabl e Fish, [facility], PA-C Unavailable Unavailabl e Fish, [facility], PA-C Unavailable Unavailabl e Fish, [facility], PA-C Unavailable Unavailabl e Fish, [facility], PA-C Unavailable Unavailabl e Fish, [facility], PA-C Unavailable Unavailabl e Fish, [facility], PA-C Unavailable Unavailabl e Fish, [facility], PA-C Unavailable Unavailabl e Fish, [facility], PA-C Unavailable Unavailabl e Fish, [facility], PA-C Unavailable Unavailabl e Fish, [facility], PA-C Unavailable Unavailabl e Fish, [facility], PA-C Unavailable Unavailabl e Fish, [facility], PA-C Unavailable Unavailabl e Fish, [facility], PA-C Unavailable Unavailabl e Fish, [facility], PA-C Unavailable Unavailabl e Fish, [facility], PA-C Unavailable Unavailabl e Fish, [facility], PA-C Unavailable Unavailabl e Fish, [facility], PA-C Unavailable Unavailabl e Fish, [facility], PA-C Unavailable Unavailabl e Fish, [facility], PA-C Unavailable Unavailabl e Fish, [facility], PA-C Unavailable Unavailabl e Fish, [facility], PA-C Unavailable Unavailabl e Fish, [facility], PA-C Unavailable Unavailabl e Fish, [facility], PA-C Unavailable Unavailabl e Fish, [facility], PA-C Unavailable Unavailabl e Fish, [facility], PA-C Unavailable Unavailabl e Fish, [facility], PA-C Unavailable Unavailabl e [...] Julieta MD Unavailable Unavailable CALEB, RADHA HAROON RECEIVING TEAM MEMBER-C Unavailable Unavailable CALEB, RADHA HAROON RECEIVING TEAM MEMBER-C Unavailable Unavailable CALEB, RADHA HAROON RECEIVING TEAM MEMBER-C Unavailable Unavailable CALEB, RADHA HAROON RECEIVING TEAM MEMBER-C Unavailable Unavailable CALEB, RADHA HAROON RECEIVING TEAM MEMBER-C Unavailable Unavailable CALEB, RADHA HAROON RECEIVING TEAM MEMBER-C Unavailable Unavailable CALEB, RADHA HAROON RECEIVING TEAM MEMBER-C Unavailable Unavailable CALEB, RADHA HAROON RECEIVING TEAM MEMBER-C Unavailable Unavailable CALEB, RADHA HAROON RECEIVING TEAM MEMBER-C Unavailable Unavailable CALEB, RADHA HAROON RECEIVING TEAM MEMBER-C Unavailable Unavailable CALEB, RADHA HAROON RECEIVING TEAM MEMBER-C Unavailable Unavailable CALEB, RADHA HAROON RECEIVING TEAM MEMBER-C Unavailable Unavailable CALEB, RADHA HAROON RECEIVING TEAM MEMBER-C Unavailable Unavailable CALEB, RADHA HAROON RECEIVING TEAM MEMBER-C Unavailable Unavailable CALEB, RADHA HAROON RECEIVING TEAM MEMBER-C Unavailable Unavailable ACLEB, RADHA HAROON RECEIVING TEAM MEMBER-C Unavailable Unavailable CALEB, RADHA HAROON RECEIVING TEAM MEMBER-C Unavailable Unavailable HAROON, NITO PA Unavailable Unavailable [...] is protected by Article 27-F of the [facility] Public Health law. If you continue you may have access to information: Regarding HIV / AIDS; Provided by facilities licensed or operated by the [facility] Office of Mental Health; or Provided by the [facility] Office for People With Developmental Disabilities. If such information is present, then the following [facility] mandated warning applies: This information has been [...] law may result in a fine or assisted sentence or both. A general authorization for [...] Date Indications Data Source(s ) Unknown [address] [facility] [address] 04/01/2021 12:00:00 AM EST eCW1 ([facility]) Unknown [address] [facility] [address] 04/01/2021 12:00:00 AM EST eCW1 ([facility]) Unknown [address] [facility] [address] 04/01/2021 12:00:00 AM EST eCW1 ([facility]) Unknown [address] [facility] [address] 04/01/2021 12:00:00 AM EST eCW1 ([facility]) Unknown [address] [facility] [place] [address] 03/30/2021 12:00:00 AM EST eCW1 ([facility]) Unknown [address] [facility] [address] 03/30/2021 12:00:00 AM EST eCW1 ([facility]) Unknown [address] [facility] [address] 03/27/2021 12:00:00 AM EST eCW1 ([facility]) Unknown [address] [facility] [address] 03/26/2021 12:00:00 AM EST eCW1 ([facility]) Unknown [address] [facility] [address] 03/25/2021 12:00:00 AM EST eCW1 ([facility]) Unknown [address] [facility] [place] [address] 03/25/2021 12:00:00 AM EST eCW1 ([facility]) Unknown [address] [facility] [place] [address] 03/19/2021 12:00:00 AM EDT eCW1 ([facility]) Unknown [address] [facility] [address] 03/19/2021 12:00:00 AM EDT [facility] [address] [facility] [address] 03/17/2021 12:00:00 AM EDT eCW1 ([facility]) Outpatient Attender: HAROON Ramírez/Klaus/[place]/Patricia mcnamara 03/13/2021 02:15:00 PM EDT MEDENT ([facility], ) Office Visit Attender: Julieta Vasquez MD Main office - [place] 03/05/2021 12:45:00 PM EDT MEDENT ([facility], ) Unknown [address] [facility] [address] 02/20/2021 12:00:00 AM EDT eCW1 ([facility]) Unknown [address] [facility] [address] 02/20/2021 12:00:00 AM EDT eCW1 ([facility]) Office Visit, Est Pt., Level 4 [address] [place] [address] 02/19/2021 12:00:00 AM EDT eCW1 ([facility]) Unknown [address] [facility] [place] [address] 02/19/2021 12:00:00 AM EDT eCW1 ([facility]) Unknown [address] [facility] [address] 02/18/2021 12:00:00 AM EDT eCW1 ([facility]) Outpatient [address] [facility] [place] [address] 02/06/2021 12:00:00 AM EDT eCW1 ([facility]) Unknown [address] [facility] [place] [address] 02/05/2021 12:00:00 AM EDT eCW1 ([facility]) Unknown [address] [facility] [address] 12/24/2020 12:00:00 AM EDT eCW1 ([facility]) Office Visit Attender: Julieta Vasquez MD Main office - [place] 12/18/2020 03:00:00 PM EDT MEDENT ([facility]) Unknown [address] [facility] [address] 12/11/2020 12:00:00 AM EDT eCW1 ([facility]) Unknown [address] [facility] [address] 12/11/2020 12:00:00 AM EDT eCW1 ([facility]) Unknown [address] [facility] [address] 11/27/2020 12:00:00 AM EDT eCW1 ([facility]) Unknown [address] [facility] [address] 11/24/2020 12:00:00 AM EDT eCW1 ([facility]) Unknown [address] [facility] [address] 11/20/2020 12:00:00 AM EDT eCW1 ([facility]) Outpatient Attender: Marci BARNEY PA-C Physical Therapy 11/18/2020 01:30:00 PM EDT MEDENT ([facility]) Unknown [address] [facility] [address] 11/13/2020 12:00:00 AM EDT eCW1 ([facility]) Outpatient [address] [facility] [address] 11/11/2020 12:00:00 AM EDT eCW1 ([facility]) Unknown [address] [facility] [address] 11/10/2020 12:00:00 AM EDT eCW1 ([facility]) Unknown [address] [facility] [address] 11/10/2020 12:00:00 AM EDT [facility] [place] [address] [facility] [address] 11/06/2020 12:00:00 AM EDT eCW1 ([facility]) Unknown [address] [facility] [address] 11/05/2020 12:00:00 AM EDT eCW1 ([facility]) Unknown [address] [facility] [address] 10/28/2020 12:00:00 AM EDT eCW1 ([facility]) Office Visit, Est Pt., Level 4 [address] [place] [address] 10/28/2020 12:00:00 AM EDT eCW1 ([facility]) Unknown [address] [facility] [address] 10/27/2020 12:00:00 AM EDT eCW1 ([facility]) Outpatient Attender: Marci BARNEY PA-C Physical Therapy 10/23/2020 08:45:00 AM EDT MEDENT ([facility]) Outpatient Attender: HAROON MARCANO-C Darrell/Klaus/[place]/Patricia mcnamara 10/22/2020 09:45:00 AM EDT MEDENT ([facility]) Unknown [address] [facility] [address] 10/16/2020 12:00:00 AM EDT [facility]CW1 [facility]) Unknown [address] [facility] [address] 10/14/2020 12:00:00 AM EDT eCW1 ([facility]) Unknown [address] [facility] [place] [address] 10/01/2020 12:00:00 AM EDT eCW1 ([facility]) Unknown [address] [facility] [address] 09/25/2020 12:00:00 AM EDT eCW1 ([facility]) Unknown [address] [facility] [address] 08/22/2020 12:00:00 AM EDT eCW1 ([facility]) Outpatient [address] [facility] [address] 08/19/2020 12:00:00 AM EDT eCW1 ([facility]) Unknown [address] [facility] [place] [address] 08/15/2020 12:00:00 AM EDT eCW1 ([facility]) Office Visit, Est Pt., Level 3 PC [address] [place] [address] 08/14/2020 12:00:00 AM EDT eCW1 ([facility]) Unknown [address] [facility] [place] [address] 08/11/2020 12:00:00 AM EDT eCW1 ([facility]) Unknown [address] [facility] [address] 08/11/2020 12:00:00 AM EDT eCW1 ([facility]) Outpatient [address] [facility] [address] 08/08/2020 12:00:00 AM EDT eCW1 ([facility]) Unknown [address] [facility] [address] 08/08/2020 12:00:00 AM EDT eCW1 ([facility]) Unknown [address] [facility] [address] 08/07/2020 12:00:00 AM EDT eCW1 ([facility]) Unknown [address] [facility] [address] 07/31/2020 12:00:00 AM EDT eCW1 ([facility]) Unknown [address] [facility] [address] 07/28/2020 12:00:00 AM EDT eCW1 ([facility]) Outpatient Attender: Julieta Vasquez MD Main office - [place] 07/18/2020 10:30:00 AM EST MEDENT ([facility]) Unknown [address] [facility] [place] [address] 07/15/2020 12:00:00 AM EST eCW1 ([facility]) Unknown [address] [facility] [place] [address] 07/15/2020 12:00:00 AM EST [facility]CW1 [facility] Outpatient Attender: Amanda tracy 07/14/2020 10:15:00 AM EST MEDENT ([facility]) Outpatient Attender: HAROON MARCANO-C Darrell/Klaus/[place]/Patricia mcnamara 07/07/2020 12:15:00 PM EST MEDENT ([facility] Unknown [address] [facility] [address] 07/07/2020 12:00:00 AM EST eCW1 [facility] Unknown [address] [facility] [address] 07/04/2020 12:00:00 AM EST eCW1 ([facility]) (TCM) Transition of Care Visit [address] [place] [address] 06/30/2020 12:00:00 AM EST [facility]CW1 [facility] Unknown [address] [facility] [address] 06/25/2020 12:00:00 AM EST eCW1 ([facility]) Unknown [address] [facility] [address] 06/24/2020 12:00:00 AM EST [facility]CW1 [facility]) Outpatient Referrer: PROVIDER SYSTEM [place] 06/22/2020 0 3:26:00 PM EST Rt facial droop, RLE weakness [facility] Rt facial droop, RLE weakness Unknown [address] [facility] [address] 06/20/2020 12:00:00 AM EST eCW1 ([facility]) Unknown [address] [facility] [place] [address] 06/20/2020 12:00:00 AM EST eCW1 ([facility]) Unknown [address] [facility] [place] [address] 06/20/2020 12:00:00 AM EST eCW1 ([facility]) Outpatient Attender: Amanda tracy 06/17/2020 10:15:00 AM EST MEDENT ([facility]) Unknown [address] [facility] [place] [address] 06/13/2020 12:00:00 AM EST eCW1 ([facility]) Unknown [address] [facility] [place] [address] 06/05/2020 12:00:00 AM EST eCW1 ([facility]) Outpatient Attender: Amanda tracy 06/04/2020 07:45:00 AM EST MEDENT ([facility]) Unknown [address] [facility] [place] [address] 06/02/2020 12:00:00 AM EST eCW1 ([facility]) Unknown [address] [facility] [place] [address] 05/26/2020 12:00:00 AM EST eCW1 ([facility]) Unknown [address] [facility] [place] [address] 05/26/2020 12:00:00 AM EST eCW1 ([facility]) Unknown [address] [facility] [place] [address] 05/19/2020 12:00:00 AM EST eCW1 ([facility]) Outpatient [address] [facility] [place] [address] 05/19/2020 12:00:00 AM EST eCW1 ([facility]) Unknown [address] [facility] [place] [address] 05/19/2020 12:00:00 AM EST eCW1 ([facility]) Unknown [address] [facility] [place] [address] 05/13/2020 12:00:00 AM EST eCW1 ([facility]) Unknown [address] [facility] [place] [address] 05/12/2020 12:00:00 AM EST eCW1 ([facility]) Unknown [address] [facility] [address] 05/02/2020 12:00:00 AM EST eCW1 ([facility]) Unknown [address] [facility] [place] [address] 05/01/2020 12:00:00 AM EST eCW1 ([facility]) Unknown [address] [facility] [place] [address] 05/01/2020 12:00:00 AM EST eCW1 ([facility]) Outpatient [address] [facility] [place] [address] 04/21/2020 12:00:00 AM EST [facility]CW1 [facility] Outpatient Attender: NITO mancuso 04/17/2020 09:30:00 AM EST MEDENT ([facility]) Unknown [address] [facility] [place] [address] 04/16/2020 12:00:00 AM EST eCW1 ([facility]) Unknown [address] [facility] [place] [address] 04/15/2020 12:00:00 AM EST eCW1 ([facility]) Unknown [address] [facility] [place] [address] 04/14/2020 12:00:00 AM EST eCW1 ([facility]) Unknown [address] [facility] [place] [address] 04/03/2020 12:00:00 AM EST [facility]CW1 ([facility]) Unknown [address] [facility] [place] [address] 04/01/2020 12:00:00 AM EST eCW1 ([facility]) Unknown [address] [facility] [place] [address] 03/26/2020 12:00:00 AM EST eCW1 ([facility]) Unknown [address] [facility] [place] [address] 03/24/2020 12:00:00 AM EST eCW1 ([facility]) (TCM) Transition of Care Visit [address] [place] [address] 03/17/2020 12:00:00 AM EST eCW1 ([facility]) Unknown [address] [facility] [address] 03/10/2020 12:00:00 AM EDT eCW1 ([facility]) Unknown [address] [facility] [address] 03/06/2020 12:00:00 AM EDT eCW1 ([facility]) Unknown [address] [facility] [address] 03/06/2020 12:00:00 AM EDT eCW1 ([facility]) Outpatient Attender: TIERNEY MURO MD Physical Therapy 08:00:00 AM EDT MEDENT ([facility]) Unknown [address] [facility] [address] 02/28/2020 12:00:00 AM EDT eCW1 ([facility]) Immunizations Vaccine Date Status Description Data Source(s) COVID-19 VACCINE Moderna 03/26/2021 12:00:00 AM EST completed [facility] Vaccine Series Complete: YESThis Data wa s Submitted to [facility] Via [employer]. COVID-19 VACCINE Moderna 02/23/2021 12:00:00 AM EDT completed [facility] Vaccine Series Complete: NOThis Data was Submitted to [facility] Via [employer]. Medications Medication Brand Name Start Date Product Form Dose Route Admi nistrative Instructions Pharmacy Instructions Status Indications Reaction Description Data Source(s) tramadol hydrochloride 50 MG Oral Tablet traMADol HCl 50 MG traMADol HCl 50 MG 04/01/2021 12:00:00 AM EST 1.0 {tablet_as_needed} active traMADol HCl 50 MG eCW1 ([facility]) tramadol hydrochloride 50 MG Oral Tablet traMADol HCl 50 MG traMADol HCl 50 MG 04/01/2021 12:00:00 AM EST 1.0 {tablet_as_needed} ac tive eCW1 ([facility]) 50 mg 04/01/2021 12:00:00 AM EST tablet 30 TAKE ONE TABLET BY MOUTH ONCE DAILY NEEDED MAXIMUM DAILY DOSE = 1 TABLET TAKE ONE TABLET BY MOUTH ONCE DAILY NEEDED MAXIMUM DAILY DOSE = 1 TABLET SOLD: 04/02/2021 [facility] [employer] tramadol hydrochloride 50 MG Oral Tablet traMADol HCl 50 MG traMADol HCl 50 MG 04/01/2021 12:00:00 AM EST 1.0 {tablet_as_needed} active traMADol HCl 50 MG eCW1 ([facility]) tramadol hydrochloride 50 MG Oral Tablet traMADol HCl 50 MG traMADol HCl 50 MG 04/01/2021 12:00:00 AM EST 1.0 {tablet_as_needed} active traMADol HCl 50 MG eCW1 ([facility]) 10 mg 03/30/2021 12:00:00 AM EST [...] 12:00:00 AM EST 1.0 {patch_to_skin} active eCW1 ([facility]) 168 HR Buprenorphine 0.01 MG/HR Transdermal Patch [BuT rans] Butrans 10 MCG/HR Butrans 10 MCG/HR 03/30/2021 12:00:00 AM EST 1.0 {patch_to_skin} active Butrans 10 MCG/HR eCW1 ([facility]) 168 HR Buprenorphine 0.01 MG/HR Transdermal Patch [BuT rans] Butrans 10 MCG/HR Butrans 10 MCG/HR 03/30/2021 12:00:00 AM EST 1.0 {patch_to_skin} active eCW1 ([facility]) 168 HR Buprenorphine 0.01 MG/HR Transdermal Patch [BuT rans] Butrans 10 MCG/HR Butrans 10 MCG/HR 03/30/2021 12:00:00 AM EST 1.0 {patch_to_skin} active Butrans 10 MCG/HR eCW1 ([facility]) 168 HR Buprenorphine 0.01 MG/HR Transdermal Patch [BuT rans] Butrans 10 MCG/HR Butrans 10 MCG/HR 03/30/2021 12:00:00 AM EST 1.0 {patch_to_skin} active eCW1 ([facility]) 168 HR Buprenorphine 0.01 MG/HR Transdermal Patch [BuT rans] Butrans 10 MCG/HR Butrans 10 MCG/HR 03/30/2021 12:00:00 AM EST 1.0 {patch_to_skin} active Butrans 10 MCG/HR eCW1 ([facility]) montelukast 10 MG Oral Tablet MONTELUKAST SODIUM 03/28/2021 12:0 0:00 AM EST tablet 30 TAKE ONE TABLET BY MOUTH AT BEDT BEV TAKE ONE TABLET BY MOUTH AT BEDTIME SOLD: 03/29/2021 [facility] tramadol hydrochloride 50 MG Oral Tablet traMADol HCl 50 MG traMADol HCl 50 MG 03/27/2021 12:00:00 AM EST 1.0 {tablet_as_needed} active traMADol HCl 50 MG eCW1 ([facility]) tramadol hydrochloride 50 MG Oral Tablet traMADol HCl 50 MG traMADol HCl 50 MG 03/27/2021 12:00:00 AM EST 1.0 {tablet_as_needed} active traMADol HCl 50 MG eCW1 ([facility]) 100 mcg/0.5 mL 03/26/2021 12:00:00 AM EST suspension 0 INJECT DIRECTED PER STANDING ORDER INJECT DIRECTED PER STANDING ORDER SOLD: 03/26/2021 [facility] 24 HR tramadol hydrochloride 100 MG Exte nded Release Oral Tablet traMADol HCl ER 100 MG traMADol HCl ER 100 MG 03/25/2021 12:00:00 AM EST active traMADol HCl ER 100 MG eCW1 ([facility]) 24 HR tramadol hydrochloride 100 MG Exte nded Release Oral Tablet traMADol HCl ER 100 MG traMADol HCl ER 100 MG 03/25/2021 12:00:00 AM EST active traMADol HCl ER 100 MG eCW1 ([facility]) [place] 75 MCG [place] 75 MCG 03/24/2021 12:00:00 AM EST active eCW1 ([facility]) [place] 75 MCG [place] 75 MCG 03/24/2021 12:00:00 AM EST active eCW1 ([facility]) [place] 75 MCG [place] 75 MCG 03/24/2021 12:00:00 AM EST active [place] 75 MCG eCW1 ([facility]) [place] 75 MCG [place] 75 MCG 03/24/2021 12:00:00 AM EST active [place] 75 MCG eCW1 ([facility]) [place] 75 MCG [place] 75 MCG 03/24/2021 12:00:00 AM EST active [place] 75 MCG eCW1 ([facility]) [place] 75 MCG [place] 75 MCG 03/24/2021 12:00:00 AM EST active [place] 75 MCG eCW1 ([facility]) [place] 75 MCG [place] 75 MCG 03/24/2021 12:00:00 AM EST active [place] 75 MCG eCW1 ([facility]) [place] 75 MCG [place] 75 MCG 03/24/2021 12:00:00 AM EST active [place] 75 MCG eCW1 ([facility]) [place] 75 MCG [place] 75 MCG 03/24/2021 12:00:00 AM EST active eCW1 ([facility]) [place] 75 MCG [place] 75 MCG 03/24/2021 12:00:00 AM EST active [place] 75 MCG eCW1 ([facility]) 4 mg 03/20/2021 12:00:00 AM EDT [...] Medications 03/05/2021 12:00:00 AM EDT active MEDENT ([facility]) 10 mg 02/24/2021 12:00:00 [...] {tablet_as_needed} active traMADol HCl 50 MG eCW1 ([facility]) tramadol hydrochloride 50 MG Oral Tablet traMADol HCl 50 MG traMADol HCl 50 MG 02/20/2021 12:00:00 AM EDT 1.0 {tablet_as_needed} active traMADol HCl 50 MG eCW1 ([facility]) tramadol hydrochloride 50 MG Oral Tablet traMADol HCl 50 MG traMADol HCl 50 MG 02/20/2021 12:00:00 AM EDT 1.0 {tablet_as_needed} ac tive eCW1 ([facility]) tramadol hydrochloride 50 MG Oral Tablet traMADol HCl 50 MG traMADol HCl 50 MG 02/20/2021 12:00:00 AM EDT 1.0 {tablet_as_needed} active traMADol HCl 50 MG eCW1 ([facility]) tramadol hydrochloride 50 MG Oral Tablet traMADol HCl 50 MG traMADol HCl 50 MG 02/20/2021 12:00:00 AM EDT 1.0 {tablet_as_needed} active traMADol HCl 50 MG eCW1 ([facility]) tramadol hydrochloride 50 MG Oral Tablet traMADol HCl 50 MG traMADol HCl 50 MG 02/20/2021 12:00:00 AM EDT 1.0 {tablet_as_needed} active traMADol HCl 50 MG eCW1 ([facility]) Liraglutide 18 MG/3ML UNK 02/19/2021 12:00:00 AM EDT active eCW1 ([facility]) Liraglutide 18 MG/3ML UNK 02/19/2021 12:00:00 AM EDT active Liraglutide 18 MG/3ML eCW1 ([facility]) Liraglutide 18 MG/3ML UNK 02/19/2021 12:00:00 AM EDT active Liraglutide 18 MG/3ML eCW1 ([facility]) Liraglutide 18 MG/3ML UNK 02/19/2021 12:00:00 AM EDT active Liraglutide 18 MG/3ML eCW1 ([facility]) Liraglutide 18 MG/3ML UNK 02/19/2021 12:00:00 AM EDT active Liraglutide 18 MG/3ML eCW1 ([facility]) Liraglutide 18 MG/3ML UNK 02/19/2021 12:00:00 AM EDT active Liraglutide 18 MG/3ML eCW1 ([facility]) Liraglutide 18 MG/3ML UNK 02/19/2021 12:00:00 AM EDT active Liraglutide 18 MG/3ML eCW1 ([facility]) Liraglutide 18 MG/3ML UNK 02/19/2021 12:00:00 AM EDT active Liraglutide 18 MG/3ML eCW1 ([facility]) Belbuca 75 MCG Belbuca 75 MCG 02/19/2021 12:00:00 AM EDT active Belbuca 75 MCG eCW1 ([facility]) Liraglutide 18 MG/3ML UNK 02/19/2021 12:00:00 AM EDT active Liraglutide 18 MG/3ML eCW1 ([facility]) Liraglutide 18 MG/3ML UNK 02/19/2021 12:00:00 AM EDT active eCW1 ([facility]) Liraglutide 18 MG/3ML UNK 02/19/2021 12:00:00 AM EDT active Liraglutide 18 MG/3ML eCW1 ([facility]) Liraglutide 18 MG/3ML UNK 02/19/2021 12:00:00 AM EDT active Liraglutide 18 MG/3ML eCW1 ([facility]) Liraglutide 18 MG/3ML UNK 02/19/2021 12:00:00 AM EDT active eCW1 ([facility]) Liraglutide 18 MG/3ML UNK 02/19/2021 12:00:00 AM EDT active eCW1 ([facility]) Liraglutide 18 MG/3ML UNK 02/19/2021 12:00:00 AM EDT active Liraglutide 18 MG/3ML eCW1 ([facility]) Liraglutide 18 MG/3ML UNK 02/19/2021 12:00:00 AM EDT active Liraglutide 18 MG/3ML eCW1 ([facility]) Liraglutide 18 MG/3ML UNK 02/19/2021 12:00:00 AM EDT active Liraglutide 18 MG/3ML eCW1 ([facility]) 75 mg 02/18/2021 12:00:00 AM EDT [...] Medications 12/18/2020 12:00:00 AM EDT completed MEDENT ([facility]) Divalproex Sodium 250 MG Delayed Release Oral Tablet Divalpr oex Sodium 12/18/2020 12:00:00 AM EDT ORAL completed MEDENT ([facility]) Acetaminophen 325 MG / [...] acti ve Nortriptyline HCl 25 MG eCW1 ([facility]) Nortriptyline 25 MG Oral Capsule Nortriptyline HCl 25 MG Nortriptyline HCl 25 MG 11/11/2020 12:00:00 AM EDT 1.0 {capsule} acti ve Nortriptyline HCl 25 MG eCW1 ([facility]) Nortriptyline 25 MG Oral Capsule Nortriptyline HCl 25 MG Nortriptyline HCl 25 MG 11/11/2020 12:00:00 AM EDT 1.0 {capsule} susp ended Nortriptyline HCl 25 MG eCW1 ([facility]) Nortriptyline 25 MG Oral Capsule Nortriptyline HCl 25 MG Nortriptyline HCl 25 MG 11/11/2020 12:00:00 AM EDT 1.0 {capsule} acti ve Nortriptyline HCl 25 MG eCW1 ([facility]) 25 mg 11/11/2020 12:00:00 AM EDT capsule 30 TAKE ONE CAPSULE BY MOUTH EVERY DAY IN THE MORNING TAKE ONE CAPSULE BY MOUTH EVERY DAY IN THE MORNING [facility] Nortriptyline 25 MG Oral Capsule Nortriptyline HCl 25 MG Nortriptyline HCl 25 MG 11/11/2020 12:00:00 AM EDT 1.0 {capsule} acti ve Nortriptyline HCl 25 MG eCW1 ([facility]) Nortriptyline 25 MG Oral Capsule Nortriptyline HCl 25 MG Nortriptyline HCl 25 MG 11/11/2020 12:00:00 AM EDT 1.0 {capsule} susp ended Nortriptyline HCl 25 MG eCW1 ([facility]) Nortriptyline 25 MG Oral Capsule Nortriptyline HCl 25 MG Nortriptyline HCl 25 MG 11/11/2020 12:00:00 AM EDT 1.0 {capsule} acti ve Nortriptyline HCl 25 MG eCW1 ([facility]) Nortriptyline 25 MG Oral Capsule Nortriptyline HCl 25 MG Nortriptyline HCl 25 MG 11/11/2020 12:00:00 AM EDT 1.0 {capsule} acti ve Nortriptyline HCl 25 MG eCW1 ([facility]) Nortriptyline 25 MG Oral Capsule Nortriptyline HCl 25 MG Nortriptyline HCl 25 MG 11/11/2020 12:00:00 AM EDT 1.0 {capsule} acti ve Nortriptyline HCl 25 MG eCW1 ([facility]) Nortriptyline 25 MG Oral Capsule Nortriptyline HCl 25 MG Nortriptyline HCl 25 MG 11/11/2020 12:00:00 AM EDT 1.0 {capsule} acti ve Nortriptyline HCl 25 MG eCW1 ([facility]) Nortriptyline 25 MG Oral Capsule Nortriptyline HCl 25 MG Nortriptyline HCl 25 MG 11/11/2020 12:00:00 AM EDT 1.0 {capsule} acti ve Nortriptyline HCl 25 MG eCW1 ([facility]) Nortriptyline 25 MG Oral Capsule Nortriptyline HCl 25 MG Nortriptyline HCl 25 MG 11/11/2020 12:00:00 AM EDT 1.0 {capsule} acti ve Nortriptyline HCl 25 MG eCW1 ([facility]) Chlorthalidone 25 MG Oral Tablet Chlorthalidone 25 MG 2020 12:00:00 AM EDT 1.0 {tablet_in_the_morning_with_food} active Chlorthalidone 25 MG eCW1 ([facility]) Chlorthalidone 25 MG Oral Tablet CHLORTHALIDONE 11/06/2020 12:0 0:00 AM EDT tablet 90 TAKE ONE TABLET BY MOUTH EVERY D AY IN THE MORNING WITH FOOD TAKE ONE TABLET BY MOUTH EVERY DAY IN THE MORNING WITH FOOD SOLD: 03/29/2021 [facility] Chlorthalidone 25 MG Oral Tablet Chlorthalidone 25 MG 2020 12:00:00 AM EDT 1.0 {tablet_in_the_morning_with_food} active Chlorthalidone 25 MG eCW1 ([facility]) Chlorthalidone 25 MG Oral Tablet Chlorthalidone 25 MG 2020 12:00:00 AM EDT 1.0 {tablet_in_the_morning_with_food} active Chlorthalidone 25 MG eCW1 ([facility]) Chlorthalidone 25 MG Oral Tablet Chlorthalidone 25 MG 2020 12:00:00 AM EDT 1.0 {tablet_in_the_morning_with_food} active Chlorthalidone 25 MG eCW1 ([facility]) Chlorthalidone 25 MG Oral Tablet Chlorthalidone 25 MG 2020 12:00:00 AM EDT 1.0 {tablet_in_the_morning_with_food} active Chlorthalidone 25 MG eCW1 ([facility]) Chlorthalidone 25 MG Oral Tablet Chlorthalidone 25 MG 2020 12:00:00 AM EDT 1.0 {tablet_in_the_morning_with_food} active Chlorthalidone 25 MG eCW1 ([facility]) Chlorthalidone 25 MG Oral Tablet Chlorthalidone 25 MG 2020 12:00:00 AM EDT 1.0 {tablet_in_the_morning_with_food} active Chlorthalidone 25 MG eCW1 ([facility]) Chlorthalidone 25 MG Oral Tablet Chlorthalidone 25 MG 2020 12:00:00 AM EDT 1.0 {tablet_in_the_morning_with_food} active Chlorthalidone 25 MG eCW1 ([facility]) Chlorthalidone 25 MG Oral Tablet Chlorthalidone 25 MG 2020 12:00:00 AM EDT 1.0 {tablet_in_the_morning_with_food} active Chlorthalidone 25 MG eCW1 ([facility]) Chlorthalidone 25 MG Oral Tablet Chlorthalidone 25 MG 2020 12:00:00 AM EDT 1.0 {tablet_in_the_morning_with_food} active Chlorthalidone 25 MG eCW1 ([facility]) Chlorthalidone 25 MG Oral Tablet Chlorthalidone 25 MG 2020 12:00:00 AM EDT 1.0 {tablet_in_the_morning_with_food} active Chlorthalidone 25 MG eCW1 ([facility]) Chlorthalidone 25 MG Oral Tablet Chlorthalidone 25 MG 2020 12:00:00 AM EDT 1.0 {tablet_in_the_morning_with_food} active Chlorthalidone 25 MG eCW1 ([facility]) Chlorthalidone 25 MG Oral Tablet Chlorthalidone 25 MG 2020 12:00:00 AM EDT 1.0 {tablet_in_the_morning_with_food} active Chlorthalidone 25 MG eCW1 ([facility]) 25 mcg 11/06/2020 12:00:00 AM EDT [...] 1.0 {tablet_in_the_morning_with_food} active Chlorthalidone 25 MG eCW1 ([facility]) carvedilol 12.5 MG Oral Tablet CARVEDILOL [...] 1.0 {tablet_in_the_morning_with_food} active Chlorthalidone 25 MG eCW1 ([facility]) 75 mg 10/16/2020 12:00:00 AM EDT [...] 10.0 {ml_on_an_empty_stomach} suspended Carafate 1 GM/10ML eCW1 ([facility]) Sucralfate 100 MG/ML Oral Suspension [Carafate] Carafa te 1 GM/10ML Carafate 1 GM/10ML 08/19/2020 12:00:00 AM EDT 10.0 {ml_on_an_empty_stomach} active Carafate 1 GM/10ML eCW1 ([facility]) Paroxetine HCl 10 MG Paroxetine HCl 10 MG 08/19/2020 12:00:00 AM ED T 1.0 {tablet_in_the_morning} active Paroxeti ne HCl 10 MG eCW1 ([facility]) Sucralfate 100 MG/ML Oral Suspension [Carafate] Carafa te 1 GM/10ML Carafate 1 GM/10ML 08/19/2020 12:00:00 AM EDT 10.0 {ml_on_an_empty_stomach} active Carafate 1 GM/10ML eCW1 ([facility]) Sucralfate 100 MG/ML Oral Suspension [Carafate] Carafa te 1 GM/10ML Carafate 1 GM/10ML 08/19/2020 12:00:00 AM EDT 10.0 {ml_on_an_empty_stomach} active Carafate 1 GM/10ML eCW1 ([facility]) Sucralfate 100 MG/ML Oral Suspension [Carafate] Carafa te 1 GM/10ML Carafate 1 GM/10ML 08/19/2020 12:00:00 AM EDT 10.0 {ml_on_an_empty_stomach} active Carafate 1 GM/10ML eCW1 ([facility]) PARoxetine HCl 10 MG PARoxetine HCl 10 MG 08/19/2020 12:00:00 AM ED T 1.0 {tablet_in_the_morning} active PARoxeti ne HCl 10 MG eCW1 ([facility]) Sucralfate 100 MG/ML Oral Suspension [Carafate] Carafa te 1 GM/10ML Carafate 1 GM/10ML 08/19/2020 12:00:00 AM EDT 10.0 {ml_on_an_empty_stomach} active Carafate 1 GM/10ML eCW1 ([facility]) Sucralfate 100 MG/ML Oral Suspension [Carafate] Carafa te 1 GM/10ML Carafate 1 GM/10ML 08/19/2020 12:00:00 AM EDT 10.0 {ml_on_an_empty_stomach} active Carafate 1 GM/10ML eCW1 ([facility]) lansoprazole 30 MG Delayed Release Oral Capsule Lansop razole 30 MG Lansoprazole 30 MG 08/19/2020 12:00:00 AM EDT 1.0 {capsule_before_a_meal} active Lansoprazole 30 MG eCW1 ([facility]) lansoprazole 30 MG Delayed Release Oral Capsule Lansop razole 30 MG Lansoprazole 30 MG 08/19/2020 12:00:00 AM EDT 1.0 {capsule_before_a_meal} active Lansoprazole 30 MG eCW1 ([facility]) Sucralfate 100 MG/ML Oral Suspension [Carafate] Carafa te 1 GM/10ML Carafate 1 GM/10ML 08/19/2020 12:00:00 AM EDT 10.0 {ml_on_an_empty_stomach} active Carafate 1 GM/10ML eCW1 ([facility]) Sucralfate 100 MG/ML Oral Suspension [Carafate] Carafa te 1 GM/10ML Carafate 1 GM/10ML 08/19/2020 12:00:00 AM EDT 10.0 {ml_on_an_empty_stomach} active Carafate 1 GM/10ML eCW1 ([facility]) PARoxetine HCl 10 MG PARoxetine HCl 10 MG 08/19/2020 12:00:00 AM ED T 1.0 {tablet_in_the_morning} suspended PARoxe dylan HCl 10 MG eCW1 ([facility]) lansoprazole 30 MG Delayed Release Oral Capsule Lansop razole 30 MG Lansoprazole 30 MG 08/19/2020 12:00:00 AM EDT 1.0 {capsule_before_a_meal} active eCW1 ([facility]) Sucralfate 100 MG/ML Oral Suspension [Carafate] Carafa te 1 GM/10ML Carafate 1 GM/10ML 08/19/2020 12:00:00 AM EDT 10.0 {ml_on_an_empty_stomach} active Carafate 1 GM/10ML eCW1 ([facility]) Sucralfate 100 MG/ML Oral Suspension [Carafate] Carafa te 1 GM/10ML Carafate 1 GM/10ML 08/19/2020 12:00:00 AM EDT 10.0 {ml_on_an_empty_stomach} active Carafate 1 GM/10ML eCW1 ([facility]) Paroxetine HCl 10 MG Paroxetine HCl 10 MG 08/19/2020 12:00:00 AM ED T 1.0 {tablet_in_the_morning} active Paroxeti ne HCl 10 MG eCW1 ([facility]) lansoprazole 30 MG Delayed Release Oral Capsule Lansop razole 30 MG Lansoprazole 30 MG 08/19/2020 12:00:00 AM EDT 1.0 {capsule_before_a_meal} active eCW1 ([facility]) PARoxetine HCl 10 MG PARoxetine HCl 10 MG 08/19/2020 12:00:00 AM ED T 1.0 {tablet_in_the_morning} active PARoxeti ne HCl 10 MG eCW1 ([facility]) lansoprazole 30 MG Delayed Release Oral Capsule Lansop razole 30 MG Lansoprazole 30 MG 08/19/2020 12:00:00 AM EDT 1.0 {capsule_before_a_meal} active eCW1 ([facility]) lansoprazole 30 MG Delayed Release Oral Capsule Lansop razole 30 MG Lansoprazole 30 MG 08/19/2020 12:00:00 AM EDT 1.0 {capsule_before_a_meal} active Lansoprazole 30 MG eCW1 ([facility]) PARoxetine HCl 10 MG PARoxetine HCl 10 MG 08/19/2020 12:00:00 AM ED T 1.0 {tablet_in_the_morning} active PARoxeti ne HCl 10 MG eCW1 ([facility]) Paroxetine HCl 10 MG Paroxetine HCl 10 MG 08/19/2020 12:00:00 AM ED T 1.0 {tablet_in_the_morning} active Paroxeti ne HCl 10 MG eCW1 ([facility]) lansoprazole 30 MG Delayed Release Oral Capsule Lansop razole 30 MG Lansoprazole 30 MG 08/19/2020 12:00:00 AM EDT 1.0 {capsule_before_a_meal} active Lansoprazole 30 MG eCW1 ([facility]) lansoprazole 30 MG Delayed Release Oral Capsule Lansop razole 30 MG Lansoprazole 30 MG 08/19/2020 12:00:00 AM EDT 1.0 {capsule_before_a_meal} active Lansoprazole 30 MG eCW1 ([facility]) PARoxetine HCl 10 MG PARoxetine HCl 10 MG 08/19/2020 12:00:00 AM ED T 1.0 {tablet_in_the_morning} active PARoxeti ne HCl 10 MG eCW1 ([facility]) Sucralfate 100 MG/ML Oral Suspension [Carafate] Carafa te 1 GM/10ML Carafate 1 GM/10ML 08/19/2020 12:00:00 AM EDT 10.0 {ml_on_an_empty_stomach} active Carafate 1 GM/10ML eCW1 ([facility]) PARoxetine HCl 10 MG PARoxetine HCl 10 MG 08/19/2020 12:00:00 AM ED T 1.0 {tablet_in_the_morning} active PARoxeti ne HCl 10 MG eCW1 ([facility]) Sucralfate 100 MG/ML Oral Suspension [Carafate] Carafa te 1 GM/10ML Carafate 1 GM/10ML 08/19/2020 12:00:00 AM EDT 10.0 {ml_on_an_empty_stomach} active Carafate 1 GM/10ML eCW1 ([facility]) PARoxetine HCl 10 MG PARoxetine HCl 10 MG 08/19/2020 12:00:00 AM ED T 1.0 {tablet_in_the_morning} active PARoxeti ne HCl 10 MG eCW1 ([facility]) lansoprazole 30 MG Delayed Release Oral Capsule Lansop razole 30 MG Lansoprazole 30 MG 08/19/2020 12:00:00 AM EDT 1.0 {capsule_before_a_meal} active Lansoprazole 30 MG eCW1 ([facility]) lansoprazole 30 MG Delayed Release Oral Capsule Lansop razole 30 MG Lansoprazole 30 MG 08/19/2020 12:00:00 AM EDT 1.0 {capsule_before_a_meal} active Lansoprazole 30 MG eCW1 ([facility]) lansoprazole 30 MG Delayed Release Oral Capsule Lansop razole 30 MG Lansoprazole 30 MG 08/19/2020 12:00:00 AM EDT 1.0 {capsule_before_a_meal} active Lansoprazole 30 MG eCW1 ([facility]) lansoprazole 30 MG Delayed Release Oral Capsule Lansop razole 30 MG Lansoprazole 30 MG 08/19/2020 12:00:00 AM EDT 1.0 {capsule_before_a_meal} active Lansoprazole 30 MG eCW1 ([facility]) lansoprazole 30 MG Delayed Release Oral Capsule Lansop razole 30 MG Lansoprazole 30 MG 08/19/2020 12:00:00 AM EDT 1.0 {capsule_before_a_meal} active Lansoprazole 30 MG eCW1 ([facility]) PARoxetine HCl 10 MG PARoxetine HCl 10 MG 08/19/2020 12:00:00 AM ED T 1.0 {tablet_in_the_morning} active PARoxeti ne HCl 10 MG eCW1 ([facility]) lansoprazole 30 MG Delayed Release Oral Capsule Lansop razole 30 MG Lansoprazole 30 MG 08/19/2020 12:00:00 AM EDT 1.0 {capsule_before_a_meal} active Lansoprazole 30 MG eCW1 ([facility]) lansoprazole 30 MG Delayed Release Oral Capsule Lansop razole 30 MG Lansoprazole 30 MG 08/19/2020 12:00:00 AM EDT 1.0 {capsule_before_a_meal} active Lansoprazole 30 MG eCW1 ([facility]) lansoprazole 30 MG Delayed Release Oral Capsule Lansop razole 30 MG Lansoprazole 30 MG 08/19/2020 12:00:00 AM EDT 1.0 {capsule_before_a_meal} active Lansoprazole 30 MG eCW1 ([facility]) lansoprazole 30 MG Delayed Release Oral Capsule Lansop razole 30 MG Lansoprazole 30 MG 08/19/2020 12:00:00 AM EDT 1.0 {capsule_before_a_meal} active Lansoprazole 30 MG eCW1 ([facility]) Sucralfate 100 MG/ML Oral Suspension [Carafate] Carafa te 1 GM/10ML Carafate 1 GM/10ML 08/19/2020 12:00:00 AM EDT 10.0 {ml_on_an_empty_stomach} active Carafate 1 GM/10ML eCW1 ([facility]) lansoprazole 30 MG Delayed Release Oral Capsule Lansop razole 30 MG Lansoprazole 30 MG 08/19/2020 12:00:00 AM EDT 1.0 {capsule_before_a_meal} active eCW1 ([facility]) PARoxetine HCl 10 MG PARoxetine HCl 10 MG 08/19/2020 12:00:00 AM ED T 1.0 {tablet_in_the_morning} active PARoxeti ne HCl 10 MG eCW1 ([facility]) lansoprazole 30 MG Delayed Release Oral Capsule Lansop razole 30 MG Lansoprazole 30 MG 08/19/2020 12:00:00 AM EDT 1.0 {capsule_before_a_meal} active Lansoprazole 30 MG eCW1 ([facility]) lansoprazole 30 MG Delayed Release Oral Capsule Lansop razole 30 MG Lansoprazole 30 MG 08/19/2020 12:00:00 AM EDT 1.0 {capsule_before_a_meal} active Lansoprazole 30 MG eCW1 ([facility]) lansoprazole 30 MG Delayed Release Oral Capsule Lansop razole 30 MG Lansoprazole 30 MG 08/19/2020 12:00:00 AM EDT 1.0 {capsule_before_a_meal} active Lansoprazole 30 MG eCW1 ([facility]) lansoprazole 30 MG Delayed Release Oral Capsule Lansop razole 30 MG Lansoprazole 30 MG 08/19/2020 12:00:00 AM EDT 1.0 {capsule_before_a_meal} active Lansoprazole 30 MG eCW1 ([facility]) lansoprazole 30 MG Delayed Release Oral Capsule Lansop razole 30 MG Lansoprazole 30 MG 08/19/2020 12:00:00 AM EDT 1.0 {capsule_before_a_meal} active Lansoprazole 30 MG eCW1 ([facility]) Sucralfate 100 MG/ML Oral Suspension [Carafate] Carafa te 1 GM/10ML Carafate 1 GM/10ML 08/19/2020 12:00:00 AM EDT 10.0 {ml_on_an_empty_stomach} active Carafate 1 GM/10ML eCW1 ([facility]) lansoprazole 30 MG Delayed Release Oral Capsule Lansop razole 30 MG Lansoprazole 30 MG 08/19/2020 12:00:00 AM EDT 1.0 {capsule_before_a_meal} active Lansoprazole 30 MG eCW1 ([facility]) Sucralfate 100 MG/ML Oral Suspension [Carafate] Carafa te 1 GM/10ML Carafate 1 GM/10ML 08/19/2020 12:00:00 AM EDT 10.0 {ml_on_an_empty_stomach} active Carafate 1 GM/10ML eCW1 ([facility]) Paroxetine HCl 10 MG Paroxetine HCl 10 MG 08/19/2020 12:00:00 AM ED T 1.0 {tablet_in_the_morning} active Paroxeti ne HCl 10 MG eCW1 ([facility]) PARoxetine HCl 10 MG PARoxetine HCl 10 MG 08/19/2020 12:00:00 AM ED T 1.0 {tablet_in_the_morning} active PARoxeti ne HCl 10 MG eCW1 ([facility]) PARoxetine HCl 10 MG PARoxetine HCl 10 MG 08/19/2020 12:00:00 AM ED T 1.0 {tablet_in_the_morning} active PARoxeti ne HCl 10 MG eCW1 ([facility]) lansoprazole 30 MG Delayed Release Oral Capsule Lansop razole 30 MG Lansoprazole 30 MG 08/19/2020 12:00:00 AM EDT 1.0 {capsule_before_a_meal} active Lansoprazole 30 MG eCW1 ([facility]) lansoprazole 30 MG Delayed Release Oral Capsule Lansop razole 30 MG Lansoprazole 30 MG 08/19/2020 12:00:00 AM EDT 1.0 {capsule_before_a_meal} active Lansoprazole 30 MG eCW1 ([facility]) lansoprazole 30 MG Delayed Release Oral Capsule Lansop razole 30 MG Lansoprazole 30 MG 08/19/2020 12:00:00 AM EDT 1.0 {capsule_before_a_meal} active Lansoprazole 30 MG eCW1 ([facility]) Sucralfate 100 MG/ML Oral Suspension [Carafate] Carafa te 1 GM/10ML Carafate 1 GM/10ML 08/19/2020 12:00:00 AM EDT 10.0 {ml_on_an_empty_stomach} active Carafate 1 GM/10ML eCW1 ([facility]) lansoprazole 30 MG Delayed Release Oral Capsule Lansop razole 30 MG Lansoprazole 30 MG 08/19/2020 12:00:00 AM EDT 1.0 {capsule_before_a_meal} active Lansoprazole 30 MG eCW1 ([facility]) lansoprazole 30 MG Delayed Release Oral Capsule Lansop razole 30 MG Lansoprazole 30 MG 08/19/2020 12:00:00 AM EDT 1.0 {capsule_before_a_meal} active Lansoprazole 30 MG eCW1 ([facility]) lansoprazole 30 MG Delayed Release Oral Capsule Lansop razole 30 MG Lansoprazole 30 MG 08/19/2020 12:00:00 AM EDT 1.0 {capsule_before_a_meal} active Lansoprazole 30 MG eCW1 ([facility]) Sucralfate 100 MG/ML Oral Suspension [Carafate] Carafa te 1 GM/10ML Carafate 1 GM/10ML 08/19/2020 12:00:00 AM EDT 10.0 {ml_on_an_empty_stomach} suspended Carafate 1 GM/10ML eCW1 ([facility]) PARoxetine HCl 10 MG PARoxetine HCl 10 MG 08/19/2020 12:00:00 AM ED T 1.0 {tablet_in_the_morning} active PARoxeti ne HCl 10 MG eCW1 ([facility]) Paroxetine HCl 10 MG Paroxetine HCl 10 MG 08/19/2020 12:00:00 AM ED T 1.0 {tablet_in_the_morning} active Paroxeti ne HCl 10 MG eCW1 ([facility]) PARoxetine HCl 10 MG PARoxetine HCl 10 MG 08/19/2020 12:00:00 AM ED T 1.0 {tablet_in_the_morning} suspended PARoxe dylan HCl 10 MG eCW1 ([facility]) Sucralfate 100 MG/ML Oral Suspension [Carafate] Carafa te 1 GM/10ML Carafate 1 GM/10ML 08/19/2020 12:00:00 AM EDT 10.0 {ml_on_an_empty_stomach} active Carafate 1 GM/10ML eCW1 ([facility]) lansoprazole 30 MG Delayed Release Oral Capsule Lansop razole 30 MG Lansoprazole 30 MG 08/19/2020 12:00:00 AM EDT 1.0 {capsule_before_a_meal} active Lansoprazole 30 MG eCW1 ([facility]) lansoprazole 30 MG Delayed Release Oral Capsule Lansop razole 30 MG Lansoprazole 30 MG 08/19/2020 12:00:00 AM EDT 1.0 {capsule_before_a_meal} active Lansoprazole 30 MG eCW1 ([facility]) lansoprazole 30 MG Delayed Release Oral Capsule Lansop razole 30 MG Lansoprazole 30 MG 08/19/2020 12:00:00 AM EDT 1.0 {capsule_before_a_meal} active Lansoprazole 30 MG eCW1 ([facility]) lansoprazole 30 MG Delayed Release Oral Capsule Lansop razole 30 MG Lansoprazole 30 MG 08/19/2020 12:00:00 AM EDT 1.0 {capsule_before_a_meal} active Lansoprazole 30 MG eCW1 ([facility]) Sucralfate 100 MG/ML Oral Suspension [Carafate] Carafa te 1 GM/10ML Carafate 1 GM/10ML 08/19/2020 12:00:00 AM EDT 10.0 {ml_on_an_empty_stomach} active Carafate 1 GM/10ML eCW1 ([facility]) lansoprazole 30 MG Delayed Release Oral Capsule Lansop razole 30 MG Lansoprazole 30 MG 08/19/2020 12:00:00 AM EDT 1.0 {capsule_before_a_meal} active Lansoprazole 30 MG eCW1 ([facility]) Sucralfate 100 MG/ML Oral Suspension [Carafate] Carafa te 1 GM/10ML Carafate 1 GM/10ML 08/19/2020 12:00:00 AM EDT 10.0 {ml_on_an_empty_stomach} active Carafate 1 GM/10ML eCW1 ([facility]) Paroxetine HCl 10 MG Paroxetine HCl 10 MG 08/19/2020 12:00:00 AM ED T 1.0 {tablet_in_the_morning} active Paroxeti ne HCl 10 MG eCW1 ([facility]) lansoprazole 30 MG Delayed Release Oral Capsule Lansop razole 30 MG Lansoprazole 30 MG 08/19/2020 12:00:00 AM EDT 1.0 {capsule_before_a_meal} active Lansoprazole 30 MG eCW1 ([facility]) PARoxetine HCl 10 MG PARoxetine HCl 10 MG 08/19/2020 12:00:00 AM ED T 1.0 {tablet_in_the_morning} active PARoxeti ne HCl 10 MG eCW1 ([facility]) lansoprazole 30 MG Delayed Release Oral Capsule Lansop razole 30 MG Lansoprazole 30 MG 08/19/2020 12:00:00 AM EDT 1.0 {capsule_before_a_meal} active Lansoprazole 30 MG eCW1 ([facility]) Sucralfate 100 MG/ML Oral Suspension [Carafate] Carafa te 1 GM/10ML Carafate 1 GM/10ML 08/19/2020 12:00:00 AM EDT 10.0 {ml_on_an_empty_stomach} active Carafate 1 GM/10ML eCW1 ([facility]) PARoxetine HCl 10 MG PARoxetine HCl 10 MG 08/19/2020 12:00:00 AM ED T 1.0 {tablet_in_the_morning} active PARoxeti ne HCl 10 MG eCW1 ([facility]) lansoprazole 30 MG Delayed Release Oral Capsule Lansop razole 30 MG Lansoprazole 30 MG 08/19/2020 12:00:00 AM EDT 1.0 {capsule_before_a_meal} active Lansoprazole 30 MG eCW1 ([facility]) Sucralfate 100 MG/ML Oral Suspension [Carafate] Carafa te 1 GM/10ML Carafate 1 GM/10ML 08/19/2020 12:00:00 AM EDT 10.0 {ml_on_an_empty_stomach} active Carafate 1 GM/10ML eCW1 ([facility]) Sucralfate 100 MG/ML Oral Suspension [Carafate] Carafa te 1 GM/10ML Carafate 1 GM/10ML 08/19/2020 12:00:00 AM EDT 10.0 {ml_on_an_empty_stomach} active Carafate 1 GM/10ML eCW1 ([facility]) Paroxetine HCl 10 MG Paroxetine HCl 10 MG 08/19/2020 12:00:00 AM ED T 1.0 {tablet_in_the_morning} active Paroxeti ne HCl 10 MG eCW1 ([facility]) lansoprazole 30 MG Delayed Release Oral Capsule Lansop razole 30 MG Lansoprazole 30 MG 08/19/2020 12:00:00 AM EDT 1.0 {capsule_before_a_meal} active Lansoprazole 30 MG eCW1 ([facility]) PARoxetine HCl 10 MG PARoxetine HCl 10 MG 08/19/2020 12:00:00 AM ED T 1.0 {tablet_in_the_morning} active PARoxeti ne HCl 10 MG eCW1 ([facility]) PARoxetine HCl 10 MG PARoxetine HCl 10 MG 08/19/2020 12:00:00 AM ED T 1.0 {tablet_in_the_morning} active PARoxeti ne HCl 10 MG eCW1 ([facility]) Sucralfate 100 MG/ML Oral Suspension [Carafate] Carafa te 1 GM/10ML Carafate 1 GM/10ML 08/19/2020 12:00:00 AM EDT 10.0 {ml_on_an_empty_stomach} active Carafate 1 GM/10ML eCW1 ([facility]) lansoprazole 30 MG Delayed Release Oral Capsule Lansop razole 30 MG Lansoprazole 30 MG 08/19/2020 12:00:00 AM EDT 1.0 {capsule_before_a_meal} active Lansoprazole 30 MG eCW1 ([facility]) PARoxetine HCl 10 MG PARoxetine HCl 10 MG 08/19/2020 12:00:00 AM ED T 1.0 {tablet_in_the_morning} active PARoxeti ne HCl 10 MG eCW1 ([facility]) lansoprazole 30 MG Delayed Release Oral Capsule Lansop razole 30 MG Lansoprazole 30 MG 08/19/2020 12:00:00 AM EDT 1.0 {capsule_before_a_meal} active Lansoprazole 30 MG eCW1 ([facility]) lansoprazole 30 MG Delayed Release Oral Capsule Lansop razole 30 MG Lansoprazole 30 MG 08/19/2020 12:00:00 AM EDT 1.0 {capsule_before_a_meal} active Lansoprazole 30 MG eCW1 ([facility]) 10 mg 08/15/2020 12:00:00 AM EDT capsule 28 TAKE ONE CAPSULE BY MOUTH EVERY 6 HOURS NEEDED FOR IRRITABLE BOWEL SYMPTOMS TAKE ONE CAPSULE BY MOUTH EVERY 6 HOURS NEEDED FOR IRRITABLE BOWEL SYMPTOMS SOLD: 08/16/2020 [facility] Estradiol 0.1 MG/ML Vaginal Cream Estradiol 0.1 MG/GM Estrad iol 0.1 MG/GM 08/11/2020 12:00:00 AM EDT active Estradiol 0.1 MG/GM eCW1 ([facility]) Estradiol 0.1 MG/ML Vaginal Cream Estradiol 0.1 MG/GM Estrad iol 0.1 MG/GM 08/11/2020 12:00:00 AM EDT active Estradiol 0.1 MG/GM eCW1 ([facility]) Estradiol 0.1 MG/ML Vaginal Cream Estradiol 0.1 MG/GM Estrad iol 0.1 MG/GM 08/11/2020 12:00:00 AM EDT active Estradiol 0.1 MG/GM eCW1 ([facility]) Estradiol 0.1 MG/ML Vaginal Cream Estradiol 0.1 MG/GM Estrad iol 0.1 MG/GM 08/11/2020 12:00:00 AM EDT active Estradiol 0.1 MG/GM eCW1 ([facility]) Phenazopyridine hydrochloride 200 MG Oral Tablet Phena zopyridine HCl 200 MG Phenazopyridine HCl 200 MG 08/08/2020 12:00:00 AM EDT 1.0 {t ablet_after_meals} active Phenazopyridine HCl 200 MG eCW1 ([facility]) Phenazopyridine hydrochloride 200 MG Oral Tablet Phena zopyridine HCl 200 MG Phenazopyridine HCl 200 MG 08/08/2020 12:00:00 AM EDT 1.0 {t ablet_after_meals} active Phenazopyridine HCl 200 MG eCW1 ([facility]) Phenazopyridine hydrochloride 200 MG Oral Tablet Phena zopyridine HCl 200 MG Phenazopyridine HCl 200 MG 08/08/2020 12:00:00 AM EDT 1.0 {t ablet_after_meals} active Phenazopyridine HCl 200 MG eCW1 ([facility]) Ciprofloxacin 500 MG Oral Tablet [Cipro] Cipro 500 MG Cipro 500 MG 08/08/2020 12:00:00 AM EDT 1.0 {tablet} active Ci pro 500 MG eCW1 ([facility]) 500 mg 08/08/2020 12:00:00 AM EDT tablet 6 TAKE ONE TABLET BY MOUTH EVERY 12 HOURS FOR 3 DAYS TAKE ONE TABLET BY MOUTH EVERY 12 HOURS FOR 3 DAYS ANNALISA [facility] Ciprofloxacin 500 MG Oral Tablet [Cipro] Cipro 500 MG Cipro 500 MG 08/08/2020 12:00:00 AM EDT 1.0 {tablet} active Ci pro 500 MG eCW1 ([facility]) Phenazopyridine hydrochloride 200 MG Oral Tablet Phena zopyridine HCl 200 MG Phenazopyridine HCl 200 MG 08/08/2020 12:00:00 AM EDT 1.0 {t ablet_after_meals} active Phenazopyridine HCl 200 MG eCW1 ([facility]) Ciprofloxacin 500 MG Oral Tablet [Cipro] Cipro 500 MG Cipro 500 MG 08/08/2020 12:00:00 AM EDT 1.0 {tablet} active Ci pro 500 MG eCW1 ([facility]) Phenazopyridine hydrochloride 200 MG Oral Tablet Phena zopyridine HCl 200 MG Phenazopyridine HCl 200 MG 08/08/2020 12:00:00 AM EDT 1.0 {t ablet_after_meals} active Phenazopyridine HCl 200 MG eCW1 ([facility]) 200 mg 08/08/2020 12:00:00 AM EDT tablet 6 TAKE ONE TABLET BY MOUTH THREE TIMES A DAY AFTER MEALS TAKE ONE TABLET BY MOUTH THREE TIMES A DAY AFTER MEALS SOLD: 08/08/2020 [facility] Ciprofloxacin 500 MG Oral Tablet [Cipro] Cipro 500 MG Cipro 500 MG 08/08/2020 12:00:00 AM EDT 1.0 {tablet} active Ci pro 500 MG eCW1 ([facility]) Ciprofloxacin 500 MG Oral Tablet [Cipro] Cipro 500 MG Cipro 500 MG 08/08/2020 12:00:00 AM EDT 1.0 {tablet} active Ci pro 500 MG eCW1 ([facility]) Rosuvastatin calcium 40 MG Oral Tablet [...] CPAP 07/25/2020 12:00:00 AM EST active MEDENT ([facility], ) Cyclobenzaprine hydrochloride 10 MG Oral [...] 1.0 {tablet_on_the_tongue_and_allow_to_dissolve} active Ondansetron 4 MG eCW1 ([facility]) Ondansetron 4 MG Disintegrating Oral Tablet Ondansetron 4 MG 07/07/2020 12:00:00 AM EST 1.0 {tablet_on_the_tongue_and_allow_to_dissolve} active Ondansetron 4 MG eC1 ([facility]) Ondansetron 4 MG Disintegrating Oral Tablet Ondansetron 4 MG 07/07/2020 12:00:00 AM EST 1.0 {tablet_on_the_tongue_and_allow_to_dissolve} active Ondansetron 4 MG eC1 ([facility]) Ondansetron 4 MG Disintegrating Oral Tablet Ondansetron 4 MG 07/07/2020 12:00:00 AM EST 1.0 {tablet_on_the_tongue_and_allow_to_dissolve} active Ondansetron 4 MG eCW1 ([facility]) Ondansetron 4 MG Disintegrating Oral Tablet Ondansetron 4 MG 07/07/2020 12:00:00 AM EST 1.0 {tablet_on_the_tongue_and_allow_to_dissolve} active Ondansetron 4 MG eCW1 ([facility]) Ondansetron 4 MG Disintegrating Oral Tablet Ondansetron 4 MG 07/07/2020 12:00:00 AM EST 1.0 {tablet_on_the_tongue_and_allow_to_dissolve} active Ondansetron 4 MG eCW1 ([facility]) Ondansetron 4 MG Disintegrating Oral Tablet Ondansetron 4 MG 07/07/2020 12:00:00 AM EST 1.0 {tablet_on_the_tongue_and_allow_to_dissolve} active Ondansetron 4 MG eCW1 ([facility]) Ondansetron 4 MG Disintegrating Oral Tablet Ondansetron 4 MG 07/07/2020 12:00:00 AM EST 1.0 {tablet_on_the_tongue_and_allow_to_dissolve} active Ondansetron 4 MG eCW1 ([facility]) Ondansetron 4 MG Disintegrating Oral Tablet Ondansetron 4 MG 07/07/2020 12:00:00 AM EST 1.0 {tablet_on_the_tongue_and_allow_to_dissolve} active Ondansetron 4 MG eCW1 ([facility]) Ondansetron 4 MG Disintegrating Oral Tablet Ondansetron 4 MG 07/07/2020 12:00:00 AM EST 1.0 {tablet_on_the_tongue_and_allow_to_dissolve} active Ondansetron 4 MG eCW1 ([facility]) Ondansetron 4 MG Disintegrating Oral Tablet Ondansetron 4 MG 07/07/2020 12:00:00 AM EST 1.0 {tablet_on_the_tongue_and_allow_to_dissolve} suspended Ondansetron 4 MG eCW1 ([facility]) Ondansetron 4 MG Disintegrating Oral Tablet Ondansetron 4 MG 07/07/2020 12:00:00 AM EST 1.0 {tablet_on_the_tongue_and_allow_to_dissolve} active Ondansetron 4 MG eCW1 ([facility]) Ondansetron 4 MG Disintegrating Oral Tablet Ondansetron 4 MG 07/07/2020 12:00:00 AM EST 1.0 {tablet_on_the_tongue_and_allow_to_dissolve} active Ondansetron 4 MG eCW1 ([facility]) Ondansetron 4 MG Disintegrating Oral Tablet Ondansetron 4 MG 07/07/2020 12:00:00 AM EST 1.0 {tablet_on_the_tongue_and_allow_to_dissolve} suspended Ondansetron 4 MG eCW1 ([facility]) Ondansetron 4 MG Disintegrating Oral Tablet Ondansetron 4 MG 07/07/2020 12:00:00 AM EST 1.0 {tablet_on_the_tongue_and_allow_to_dissolve} active Ondansetron 4 MG eCW1 ([facility]) Ondansetron 4 MG Disintegrating Oral Tablet Ondansetron 4 MG 07/07/2020 12:00:00 AM EST 1.0 {tablet_on_the_tongue_and_allow_to_dissolve} active Ondansetron 4 MG eCW1 ([facility]) Ondansetron 4 MG Disintegrating Oral Tablet Ondansetron 4 MG 07/07/2020 12:00:00 AM EST 1.0 {tablet_on_the_tongue_and_allow_to_dissolve} active Ondansetron 4 MG eCW1 ([facility]) Ondansetron 4 MG Disintegrating Oral Tablet Ondansetron 4 MG 07/07/2020 12:00:00 AM EST 1.0 {tablet_on_the_tongue_and_allow_to_dissolve} active Ondansetron 4 MG eCW1 ([facility]) Ondansetron 4 MG Disintegrating Oral Tablet Ondansetron 4 MG 07/07/2020 12:00:00 AM EST 1.0 {tablet_on_the_tongue_and_allow_to_dissolve} active Ondansetron 4 MG eCW1 ([facility]) Ondansetron 4 MG Disintegrating Oral Tablet Ondansetron 4 MG 07/07/2020 12:00:00 AM EST 1.0 {tablet_on_the_tongue_and_allow_to_dissolve} active Ondansetron 4 MG eCW1 ([facility]) Ondansetron 4 MG Disintegrating Oral Tablet Ondansetron 4 MG 07/07/2020 12:00:00 AM EST 1.0 {tablet_on_the_tongue_and_allow_to_dissolve} active Ondansetron 4 MG eCW1 ([facility]) Ondansetron 4 MG Disintegrating Oral Tablet Ondansetron 4 MG 07/07/2020 12:00:00 AM EST 1.0 {tablet_on_the_tongue_and_allow_to_dissolve} active Ondansetron 4 MG eCW1 ([facility]) Ondansetron 4 MG Disintegrating Oral Tablet Ondansetron 4 MG 07/07/2020 12:00:00 AM EST 1.0 {tablet_on_the_tongue_and_allow_to_dissolve} active Ondansetron 4 MG eCW1 ([facility]) Ondansetron 4 MG Disintegrating Oral Tablet Ondansetron 4 MG 07/07/2020 12:00:00 AM EST 1.0 {tablet_on_the_tongue_and_allow_to_dissolve} active Ondansetron 4 MG eCW1 ([facility]) Ondansetron 4 MG Disintegrating Oral Tablet Ondansetron 4 MG 07/07/2020 12:00:00 AM EST 1.0 {tablet_on_the_tongue_and_allow_to_dissolve} active Ondansetron 4 MG eCW1 ([facility]) Ondansetron 4 MG Disintegrating Oral Tablet Ondansetron 4 MG 07/07/2020 12:00:00 AM EST 1.0 {tablet_on_the_tongue_and_allow_to_dissolve} active Ondansetron 4 MG eCW1 ([facility]) Ondansetron 4 MG Disintegrating Oral Tablet Ondansetron 4 MG 07/07/2020 12:00:00 AM EST 1.0 {tablet_on_the_tongue_and_allow_to_dissolve} active Ondansetron 4 MG eCW1 ([facility]) Ondansetron 4 MG Disintegrating Oral Tablet Ondansetron 4 MG 07/07/2020 12:00:00 AM EST 1.0 {tablet_on_the_tongue_and_allow_to_dissolve} active Ondansetron 4 MG eCW1 ([facility]) Ondansetron 4 MG Disintegrating Oral Tablet Ondansetron 4 MG 07/07/2020 12:00:00 AM EST 1.0 {tablet_on_the_tongue_and_allow_to_dissolve} active Ondansetron 4 MG eCW1 ([facility]) Ondansetron 4 MG Disintegrating Oral Tablet Ondansetron 4 MG 07/07/2020 12:00:00 AM EST 1.0 {tablet_on_the_tongue_and_allow_to_dissolve} active Ondansetron 4 MG eCW1 ([facility]) Ondansetron 4 MG Disintegrating Oral Tablet Ondansetron 4 MG 07/07/2020 12:00:00 AM EST 1.0 {tablet_on_the_tongue_and_allow_to_dissolve} active Ondansetron 4 MG eCW1 ([facility]) Ondansetron 4 MG Disintegrating Oral Tablet Ondansetron 4 MG 07/07/2020 12:00:00 AM EST 1.0 {tablet_on_the_tongue_and_allow_to_dissolve} active Ondansetron 4 MG eCW1 ([facility]) Ondansetron 4 MG Disintegrating Oral Tablet Ondansetron 4 MG 07/07/2020 12:00:00 AM EST 1.0 {tablet_on_the_tongue_and_allow_to_dissolve} active Ondansetron 4 MG eCW1 ([facility]) Ondansetron 4 MG Disintegrating Oral Tablet Ondansetron 4 MG 07/07/2020 12:00:00 AM EST 1.0 {tablet_on_the_tongue_and_allow_to_dissolve} active Ondansetron 4 MG eCW1 ([facility]) Ondansetron 4 MG Disintegrating Oral Tablet Ondansetron 4 MG 07/07/2020 12:00:00 AM EST 1.0 {tablet_on_the_tongue_and_allow_to_dissolve} active Ondansetron 4 MG eCW1 ([facility]) Ondansetron 4 MG Disintegrating Oral Tablet Ondansetron 4 MG 07/07/2020 12:00:00 AM EST 1.0 {tablet_on_the_tongue_and_allow_to_dissolve} active Ondansetron 4 MG eCW1 ([facility]) Ondansetron 4 MG Disintegrating Oral Tablet Ondansetron 4 MG 07/07/2020 12:00:00 AM EST 1.0 {tablet_on_the_tongue_and_allow_to_dissolve} active Ondansetron 4 MG eCW1 ([facility]) Ondansetron 4 MG Disintegrating Oral Tablet Ondansetron 4 MG 07/07/2020 12:00:00 AM EST 1.0 {tablet_on_the_tongue_and_allow_to_dissolve} active Ondansetron 4 MG eCW1 ([facility]) Ondansetron 4 MG Disintegrating Oral Tablet Ondansetron 4 MG 07/07/2020 12:00:00 AM EST 1.0 {tablet_on_the_tongue_and_allow_to_dissolve} active Ondansetron 4 MG eCW1 ([facility]) 10 mg 07/01/2020 12:00:00 AM EST [...] 1.0 {capsule} suspended Gabapentin 100 MG eCW1 ([facility]) gabapentin 100 MG Oral Capsule Gabapentin 100 MG Gabapentin 100 MG 06/30/2020 12:00:00 AM EST 1.0 {capsule} suspended Gabapentin 100 MG eCW1 ([facility]) gabapentin 100 MG Oral Capsule Gabapentin 100 MG Gabapentin 100 MG 06/30/2020 12:00:00 AM EST 1.0 {capsule} suspended Gabapentin 100 MG eCW1 ([facility]) gabapentin 100 MG Oral Capsule Gabapentin 100 MG Gabapentin 100 MG 06/30/2020 12:00:00 AM EST 1.0 {capsule} active G abapentin 100 MG eCW1 ([facility]) gabapentin 100 MG Oral Capsule Gabapentin 100 MG Gabapentin 100 MG 06/30/2020 12:00:00 AM EST 1.0 {capsule} active G abapentin 100 MG eCW1 ([facility]) gabapentin 100 MG Oral Capsule Gabapentin 100 MG Gabapentin 100 MG 06/30/2020 12:00:00 AM EST 1.0 {capsule} active G abapentin 100 MG eCW1 ([facility]) gabapentin 100 MG Oral Capsule Gabapentin 100 MG Gabapentin 100 MG 06/30/2020 12:00:00 AM EST 1.0 {capsule} active G abapentin 100 MG eCW1 ([facility]) gabapentin 100 MG Oral Capsule Gabapentin 100 MG Gabapentin 100 MG 06/30/2020 12:00:00 AM EST 1.0 {capsule} active G abapentin 100 MG eCW1 ([facility]) gabapentin 100 MG Oral Capsule Gabapentin 100 MG Gabapentin 100 MG 06/30/2020 12:00:00 AM EST 1.0 {capsule} active G abapentin 100 MG eCW1 ([facility]) gabapentin 100 MG Oral Capsule Gabapentin 100 MG Gabapentin 100 MG 06/30/2020 12:00:00 AM EST 1.0 {capsule} suspended Gabapentin 100 MG eCW1 ([facility]) gabapentin 100 MG Oral Capsule Gabapentin 100 MG Gabapentin 100 MG 06/30/2020 12:00:00 AM EST 1.0 {capsule} active G abapentin 100 MG eCW1 ([facility]) gabapentin 100 MG Oral Capsule Gabapentin 100 MG Gabapentin 100 MG 06/30/2020 12:00:00 AM EST 1.0 {capsule} active G abapentin 100 MG eCW1 ([facility]) gabapentin 100 MG Oral Capsule Gabapentin 100 MG Gabapentin 100 MG 06/30/2020 12:00:00 AM EST 1.0 {capsule} active G abapentin 100 MG eCW1 ([facility]) gabapentin 100 MG Oral Capsule Gabapentin 100 MG Gabapentin 100 MG 06/30/2020 12:00:00 AM EST 1.0 {capsule} suspended Gabapentin 100 MG eCW1 ([facility]) PredniSONE ([place]) 10mg UNK 06/23/2020 12:00:00 AM EST suspended PredniSONE ([place]) 10mg eCW1 ([facility]) Doxycycline Monohydrate 100 MG Oral Capsule Doxycycline Sebastian hydrate 100 MG 06/23/2020 12:00:00 AM EST 1.0 {capsule} active Doxycycline Monohydrate 100 MG eCW1 ([facility]) 10 mg 06/23/2020 12:00:00 AM EST [...] AM EST suspended PredniSONE ([place]) 10mg eCW1 ([facility]) PredniSONE ([place]) 10mg UNK 06/23/2020 12:00:00 AM EST active PredniSONE ([place]) 10mg eCW1 ([facility]) PredniSONE ([place]) 10mg UNK 06/23/2020 12:00:00 AM EST active PredniSONE ([place]) 10mg eCW1 ([facility]) PredniSONE ([place]) 10mg UNK 06/23/2020 12:00:00 AM EST suspended PredniSONE ([place]) 10mg eCW1 ([facility]) PredniSONE ([place]) 10mg UNK 06/23/2020 12:00:00 AM EST active PredniSONE ([place]) 10mg eCW1 ([facility]) Doxycycline Monohydrate 100 MG Oral Capsule Doxycycline Sebastian hydrate 100 MG 06/23/2020 12:00:00 AM EST 1.0 {capsule} active Doxycycline Monohydrate 100 MG eCW1 ([facility]) PredniSONE ([place]) 10mg UNK 06/23/2020 12:00:00 AM EST active PredniSONE ([place]) 10mg eCW1 ([facility]) PredniSONE ([place]) 10mg UNK 06/23/2020 12:00:00 AM EST suspended PredniSONE ([place]) 10mg eCW1 ([facility]) PredniSONE ([place]) 10mg UNK 06/23/2020 12:00:00 AM EST active PredniSONE ([place]) 10mg eCW1 ([facility]) PredniSONE ([place]) 10mg UNK 06/23/2020 12:00:00 AM EST active PredniSONE ([place]) 10mg eCW1 ([facility]) PredniSONE ([place]) 10mg UNK 06/23/2020 12:00:00 AM EST active PredniSONE ([place]) 10mg eCW1 ([facility]) PredniSONE ([place]) 10mg UNK 06/23/2020 12:00:00 AM EST active PredniSONE ([place]) 10mg eCW1 ([facility]) PredniSONE ([place]) 10mg UNK 06/23/2020 12:00:00 AM EST active PredniSONE ([place]) 10mg eCW1 ([facility]) PredniSONE ([place]) 10mg UNK 06/23/2020 12:00:00 AM EST active PredniSONE ([place]) 10mg eCW1 ([facility]) PredniSONE ([place]) 10mg UNK 06/23/2020 12:00:00 AM EST active PredniSONE ([place]) 10mg eCW1 ([facility]) PredniSONE ([place]) 10mg UNK 06/23/2020 12:00:00 AM EST suspended PredniSONE ([place]) 10mg eCW1 ([facility]) Sodium Chloride 0.111 MEQ/ML Nasal [place] [[place] brand of sodium chloride] [place] Nasal Freeman 0.65 % [place] Nasal Freeman 0.65 % 06/20/2020 12:00:00 AM EST active [place] Nasal Freeman 0.65 % eCW 1 ([facility]) Sodium Chloride 0.111 MEQ/ML Nasal [place] [[place] brand of sodium chloride] [place] Nasal Freeman 0.65 % [place] Nasal Freeman 0.65 % 06/20/2020 12:00:00 AM EST active [place] Nasal [place] 0.65 % eCW 1 ([facility]) montelukast 10 MG Oral Tablet MONTELUKAST SODIUM 06/20/2020 12:0 0:00 AM EST tablet 30 TAKE ONE TABLET BY MOUTH AT BEDT BEV TAKE ONE TABLET BY MOUTH AT BEDTIME SOLD: 06/20/2020 [facility] Sodium Chloride 0.111 MEQ/ML Nasal [place] [[place] brand of sodium chloride] [place] Nasal Freeman 0.65 % [place] Nasal Freeman 0.65 % 06/20/2020 12:00:00 AM EST active [place] Nasal [place] 0.65 % eCW 1 ([facility]) Sodium Chloride 0.111 MEQ/ML Nasal [place] [[place] brand of sodium chloride] [place] Nasal Freeman 0.65 % [place] Nasal Freeman 0.65 % 06/20/2020 12:00:00 AM EST active [place] Nasal [place] 0.65 % eCW 1 ([facility]) Sodium Chloride 0.111 MEQ/ML Nasal [place] [[place] brand of sodium chloride] [place] Nasal Freeman 0.65 % [place] Nasal Freeman 0.65 % 06/20/2020 12:00:00 AM EST active eCW1 ([facility]) Sodium Chloride 0.111 MEQ/ML Nasal [place] [[place] brand of sodium chloride] [place] Nasal Freeman 0.65 % [place] Nasal Freeman 0.65 % 06/20/2020 12:00:00 AM EST active [place] Nasal Freeman 0.65 % eCW 1 ([facility]) Sodium Chloride 0.111 MEQ/ML Nasal [place] [[place] brand of sodium chloride] [place] Nasal Freeman 0.65 % [place] Nasal Freeman 0.65 % 06/20/2020 12:00:00 AM EST active [place] Nasal Freeman 0.65 % eCW 1 ([facility]) Sodium Chloride 0.111 MEQ/ML Nasal [place] [[place] brand of sodium chloride] [place] Nasal Freeman 0.65 % [place] Nasal Freeman 0.65 % 06/20/2020 12:00:00 AM EST active [place] Nasal [place] 0.65 % eCW 1 ([facility]) Sodium Chloride 0.111 MEQ/ML Nasal [place] [[place] brand of sodium chloride] [place] Nasal Freeman 0.65 % [place] Nasal Freeman 0.65 % 06/20/2020 12:00:00 AM EST active [place] Nasal Freeman 0.65 % eCW 1 ([facility]) Sodium Chloride 0.111 MEQ/ML Nasal [place] [[place] brand of sodium chloride] [place] Nasal Freeman 0.65 % [place] Nasal Freeman 0.65 % 06/20/2020 12:00:00 AM EST active [place] Nasal [place] 0.65 % eCW 1 ([facility]) montelukast 10 MG Oral Tablet MONTELUKAST SODIUM 06/20/2020 12:0 0:00 AM EST tablet 30 TAKE ONE TABLET BY MOUTH AT BEDT BEV TAKE ONE TABLET BY MOUTH AT BEDTIME SOLD: 08/21/2020 [facility] Sodium Chloride 0.111 MEQ/ML [place]al [place] [[place] brand of sodium chloride] [place] Nasal Freeman 0.65 % [place] Nasal Freeman 0.65 % 06/20/2020 12:00:00 AM EST active [place] Nasal [place] 0.65 % eCW 1 ([facility]) Sodium Chloride 0.111 MEQ/ML Nasal [place] [[place] brand of sodium chloride] [place] Nasal Freeman 0.65 % [place] Nasal Freeman 0.65 % 06/20/2020 12:00:00 AM EST active eCW1 ([facility]) Sodium Chloride 0.111 MEQ/ML Nasal [place] [[place] brand of sodium chloride] [place] Nasal Freeman 0.65 % [place] Nasal Freeman 0.65 % 06/20/2020 12:00:00 AM EST active [place] Nasal [place] 0.65 % eCW 1 ([facility]) Sodium Chloride 0.111 MEQ/ML Nasal [place] [[place] brand of sodium chloride] [place] Nasal Freeman 0.65 % [place] Nasal [place] 0.65 % 06/20/2020 12:00:00 AM EST active [place] Nasal [place] 0.65 % eCW 1 ([facility]) Sodium Chloride 0.111 MEQ/ML [place]al [place] [[place] brand of sodium chloride] [place] Nasal Freeman 0.65 % [place] Nasal Freeman 0.65 % 06/20/2020 12:00:00 AM EST active [place] Nasal [place] 0.65 % eCW 1 ([facility]) Sodium Chloride 0.111 MEQ/ML Nasal [place] [[place] brand of sodium chloride] [place] Nasal Freeman 0.65 % [place] Nasal [place] 0.65 % 06/20/2020 12:00:00 AM EST active [place] Nasal [place] 0.65 % eCW 1 ([facility]) montelukast 10 MG Oral Tablet MONTELUKAST SODIUM 06/20/2020 12:0 0:00 AM EST tablet 30 TAKE ONE TABLET BY MOUTH AT BEDT BEV TAKE ONE TABLET BY MOUTH AT BEDTIME SOLD: 07/21/2020 [facility] Sodium Chloride 0.111 MEQ/ML Nasal [place] [[place] brand of sodium chloride] [place] Nasal Freeman 0.65 % [place] Nasal Freeman 0.65 % 06/20/2020 12:00:00 AM EST active [place] Nasal Freeman 0.65 % eCW 1 ([facility]) Sodium Chloride 0.111 MEQ/ML Nasal [place] [[place] brand of sodium chloride] [place] Nasal Freeman 0.65 % [place] Nasal [place] 0.65 % 06/20/2020 12:00:00 AM EST active [place] Nasal [place] 0.65 % eCW 1 ([facility]) Sodium Chloride 0.111 MEQ/ML [place]al [place] [[place] brand of sodium chloride] [place] Nasal Freeman 0.65 % [place] Nasal [place] 0.65 % 06/20/2020 12:00:00 AM EST active [place] Nasal [place] 0.65 % eCW 1 ([facility]) Sodium Chloride 0.111 MEQ/ML [place]al [place] [[place] brand of sodium chloride] [place] Nasal Freeman 0.65 % [place] Nasal [place] 0.65 % 06/20/2020 12:00:00 AM EST active [place] Nasal [place] 0.65 % eCW 1 ([facility]) Sodium Chloride 0.111 MEQ/ML [place] [[place] brand of sodium chloride] [place] Nasal Freeman 0.65 % [place] Nasal [place] 0.65 % 06/20/2020 12:00:00 AM EST active [place] Nasal [place] 0.65 % eCW 1 ([facility]) Sodium Chloride 0.111 MEQ/ML [place] [[place] brand of sodium chloride] [place] Nasal Freeman 0.65 % [place] Nasal [place] 0.65 % 06/20/2020 12:00:00 AM EST active [place] Nasal [place] 0.65 % eCW 1 ([facility]) Sodium Chloride 0.111 MEQ/ML [place] [[place] brand of sodium chloride] [place] Nasal [place] 0.65 % [place] Nasal [place] 0.65 % 06/20/2020 12:00:00 AM EST active [place] Nasal [place] 0.65 % eCW 1 ([facility]) Sodium Chloride 0.111 MEQ/ML [place]al [place] [[place] brand of sodium chloride] [place] Nasal [place] 0.65 % [place] Nasal [place] 0.65 % 06/20/2020 12:00:00 AM EST active [place] Nasal [place] 0.65 % eCW 1 ([facility]) Sodium Chloride 0.111 MEQ/ML [place]al [place] [[place] brand of sodium chloride] [place] Nasal [place] 0.65 % [place] Nasal [place] 0.65 % 06/20/2020 12:00:00 AM EST active [place] Nasal [place] 0.65 % eCW 1 ([facility]) Sodium Chloride 0.111 MEQ/ML [place]al [place] [[place] brand of sodium chloride] [place] Nasal [place] 0.65 % [place] Nasal [place] 0.65 % 06/20/2020 12:00:00 AM EST active [place] Nasal [place] 0.65 % eCW 1 ([facility]) Sodium Chloride 0.111 MEQ/ML [place]al [place] [[place] brand of sodium chloride] [place] Nasal [place] 0.65 % [place] Nasal [place] 0.65 % 06/20/2020 12:00:00 AM EST active [place] Nasal [place] 0.65 % eCW 1 ([facility]) Sodium Chloride 0.111 MEQ/ML [place] [[place] brand of sodium chloride] [place] Nasal [place] 0.65 % [place] Nasal [place] 0.65 % 06/20/2020 12:00:00 AM EST active [place] Nasal [place] 0.65 % eCW 1 ([facility]) Sodium Chloride 0.111 MEQ/ML [place] [place] [[place] brand of sodium chloride] [place] [facility] [place] 0.65 % [place] [facility] [place] 0.65 % 06/20/2020 12:00:00 AM EST active [place] [facility] [place] 0.65 % eCW 1 ([facility]) Sodium Chloride 0.111 MEQ/ML [place] [[place] brand of sodium chloride] [place] [facility] [place] 0.65 % [place] [facility] [place] 0.65 % 06/20/2020 12:00:00 AM EST active [place] [facility] [place] 0.65 % eCW 1 ([facility]) Sodium Chloride 0.111 MEQ/ML [place] [place] [[place] brand of sodium chloride] [place] [facility] [place] 0.65 % [place] [place]al [place] 0.65 % 06/20/2020 12:00:00 AM EST active [place] Nas[place] 0.65 % eCW 1 ([facility]) Sodium Chloride 0.111 MEQ/ML Nasal [place] [[place] brand of sodium chloride] [place] Nasal [place] 0.65 % [place] Nasal [place] 0.65 % 06/20/2020 12:00:00 AM EST active [place] Nasal [place] 0.65 % eCW 1 ([facility]) Sodium Chloride 0.111 MEQ/ML [place] [[place] brand of sodium chloride] [place] Nasal [place] 0.65 % [place] Nasal [place] 0.65 % 06/20/2020 12:00:00 AM EST active [place] Nasal [place] 0.65 % eCW 1 ([facility]) Sodium Chloride 0.111 MEQ/ML [place] [[place] brand of sodium chloride] [place] Nasal [place] 0.65 % [place] Nasal [place] 0.65 % 06/20/2020 12:00:00 AM EST active eCW1 ([facility]) Sodium Chloride 0.111 MEQ/ML [place] [[place] brand of sodium chloride] [place] Nasal [place] 0.65 % [place] Nasal [place] 0.65 % 06/20/2020 12:00:00 AM EST active [place] Nasal [place] 0.65 % eCW 1 ([facility]) Sodium Chloride 0.111 MEQ/ML [place] [[place] brand of sodium chloride] [place] Nasal [place] 0.65 % [place] Nasal [place] 0.65 % 06/20/2020 12:00:00 AM EST active eCW1 ([facility]) Sodium Chloride 0.111 MEQ/ML [place] [[place] brand of sodium chloride] [place] Nasal [place] 0.65 % [place] Nasal [place] 0.65 % 06/20/2020 12:00:00 AM EST active [place] Nasal [place] 0.65 % eCW 1 ([facility]) Sodium Chloride 0.111 MEQ/ML [place] [[place] brand of sodium chloride] [place] Nasal [place] 0.65 % [place] Nasal [place] 0.65 % 06/20/2020 12:00:00 AM EST active [place] Nasal [place] 0.65 % eCW 1 ([facility]) Sodium Chloride 0.111 MEQ/ML [place] [[place] brand of sodium chloride] [place] Nasal [place] 0.65 % [place] Nasal [place] 0.65 % 06/20/2020 12:00:00 AM EST active [place] Nasal [place] 0.65 % eCW 1 ([facility]) Sodium Chloride 0.111 MEQ/ML [place] [[place] brand of sodium chloride] [place] Nasal [place] 0.65 % [place] Nasal [place] 0.65 % 06/20/2020 12:00:00 AM EST active [place] Nasal [place] 0.65 % eCW 1 ([facility]) Sodium Chloride 0.111 MEQ/ML [place] [[place] brand of sodium chloride] [place] Nasal [place] 0.65 % [place] Nasal [place] 0.65 % 06/20/2020 12:00:00 AM EST active [place] Nasal [place] 0.65 % eCW 1 ([facility]) Sodium Chloride 0.111 MEQ/ML [place] [[place] brand of sodium chloride] [place] Nasal [place] 0.65 % [place] Nasal [place] 0.65 % 06/20/2020 12:00:00 AM EST active [place] Nasal [place] 0.65 % eCW 1 ([facility]) Sodium Chloride 0.111 MEQ/ML [place] [[place] brand of sodium chloride] [place] Nasal [place] 0.65 % [place] Nasal [place] 0.65 % 06/20/2020 12:00:00 AM EST active [place] Nasal [place] 0.65 % eCW 1 ([facility]) Sodium Chloride 0.111 MEQ/ML [place] [[place] brand of sodium chloride] [place] Nasal [place] 0.65 % [place] Nasal [place] 0.65 % 06/20/2020 12:00:00 AM EST active [place] Nasal [place] 0.65 % eCW 1 ([facility]) Sodium Chloride 0.111 MEQ/ML [place] [[place] brand of sodium chloride] [place] Nasal [place] 0.65 % [place] Nasal [place] 0.65 % 06/20/2020 12:00:00 AM EST active [place] Nasal [place] 0.65 % eCW 1 ([facility]) Sodium Chloride 0.111 MEQ/ML [place] [[place] brand of sodium chloride] [place] Nasal [place] 0.65 % [place] Nasal [place] 0.65 % 06/20/2020 12:00:00 AM EST active [place] Nasal [place] 0.65 % eCW 1 ([facility]) Sodium Chloride 0.111 MEQ/ML [place] [[place] brand of sodium chloride] [place] Nasal [place] 0.65 % [place] Nasal [place] 0.65 % 06/20/2020 12:00:00 AM EST active [place] Nasal [place] 0.65 % eCW 1 ([facility]) Sodium Chloride 0.111 MEQ/ML [place] [[place] brand of sodium chloride] [place] Nasal [place] 0.65 % [place] Nasal [place] 0.65 % 06/20/2020 12:00:00 AM EST active [place] Nasal [place] 0.65 % eCW 1 ([facility]) Sodium Chloride 0.111 MEQ/ML [place] [[place] brand of sodium chloride] [place] Nasal [place] 0.65 % [place] Nasal [place] 0.65 % 06/20/2020 12:00:00 AM EST active [place] Nasal [place] 0.65 % eCW 1 ([facility]) Sodium Chloride 0.111 MEQ/ML [place] [[place] brand of sodium chloride] [place] Nasal [place] 0.65 % [place] Nasal [place] 0.65 % 06/20/2020 12:00:00 AM EST active [place] Nasal [place] 0.65 % eCW 1 ([facility]) Sodium Chloride 0.111 MEQ/ML [place] [[place] brand of sodium chloride] [place] Nasal [place] 0.65 % [place] Nasal [place] 0.65 % 06/20/2020 12:00:00 AM EST active [place] Nasal [place] 0.65 % eCW 1 ([facility]) Sodium Chloride 0.111 MEQ/ML [place] [[place] brand of sodium chloride] [place] Nasal [place] 0.65 % [place] Nasal [place] 0.65 % 06/20/2020 12:00:00 AM EST active [place] Nasal [place] 0.65 % eCW 1 ([facility]) Sodium Chloride 0.111 MEQ/ML [place] [[place] brand of sodium chloride] [place] Nasal [place] 0.65 % [place] Nasal [place] 0.65 % 06/20/2020 12:00:00 AM EST active [place] Nasal [place] 0.65 % eCW 1 ([facility]) Sodium Chloride 0.111 MEQ/ML [place] [[place] brand of sodium chloride] [place] Nasal [place] 0.65 % [place] Nasal [place] 0.65 % 06/20/2020 12:00:00 AM EST active [place] Nasal [place] 0.65 % eCW 1 ([facility]) Sodium Chloride 0.111 MEQ/ML [place] [[place] brand of sodium chloride] [place] Nasal [place] 0.65 % [place] Nasal [place] 0.65 % 06/20/2020 12:00:00 AM EST active [place] Nasal [place] 0.65 % eCW 1 ([facility]) montelukast 10 MG Oral Tablet MONTELUKAST SODIUM 06/20/2020 12:0 0:00 AM EST tablet 30 TAKE ONE TABLET BY MOUTH AT BEDT BEV TAKE ONE TABLET BY MOUTH AT BEDTIME SOLD: 09/19/2020 [facility] Sodium Chloride 0.111 MEQ/ML [place] [[place] brand of sodium chloride] [place] Nasal [place] 0.65 % [place] Nasal [place] 0.65 % 06/20/2020 12:00:00 AM EST active [place] Nasal [place] 0.65 % eCW 1 ([facility]) Sodium Chloride 0.111 MEQ/ML [place] [[place] brand of sodium chloride] [place] Nasal [place] 0.65 % [place] Nasal [place] 0.65 % 06/20/2020 12:00:00 AM EST active [place] Nasal [place] 0.65 % eCW 1 ([facility]) Sodium Chloride 0.111 MEQ/ML [place] [[place] brand of sodium chloride] [place] Nasal [place] 0.65 % [place] Nasal [place] 0.65 % 06/20/2020 12:00:00 AM EST active [place] Nasal [place] 0.65 % eCW 1 ([facility]) Sodium Chloride 0.111 MEQ/ML [place] [[place] brand of sodium chloride] [place] Nasal [place] 0.65 % [place] Nasal [place] 0.65 % 06/20/2020 12:00:00 AM EST active [place] Nasal [place] 0.65 % eCW 1 ([facility]) Sodium Chloride 0.111 MEQ/ML [place] [[place] brand of sodium chloride] [place] Nasal [place] 0.65 % [place] Nasal [place] 0.65 % 06/20/2020 12:00:00 AM EST active [place] Nasal [place] 0.65 % eCW 1 ([facility]) Sodium Chloride 0.111 MEQ/ML [place] [[place] brand of sodium chloride] [place] Nasal [place] 0.65 % [place] Nasal [place] 0.65 % 06/20/2020 12:00:00 AM EST active [place] Nasal [place] 0.65 % eCW 1 ([facility]) 100 mg 06/17/2020 12:00:00 AM EST tablet 20 TAKE ONE TABLET BY MOUTH TWICE A DAY FOR 10 DAYS TAKE ONE TABLET BY MOUTH TWICE A DAY FOR 10 DAYS SOLD: 06/17/2020 [facility] Doxycycline Monohydrate 100 MG Oral Tablet Doxycycline Monoh ydrate 06/17/2020 12:00:00 AM EST ORAL completed [facility] ([facility]) 75 mg 06/11/2020 12:00:00 AM EST tablet [...] completed [facility] ([facility]) 300 mg 06/04/2020 12:00:00 AM EST [...] a ctive Duloxetine HCl 30 MG eCW1 ([facility]) duloxetine 30 MG Delayed Release Oral Capsule Duloxeti ne HCl 30 MG Duloxetine HCl 30 MG 05/19/2020 12:00:00 AM EST 1.0 {capsule} a ctive Duloxetine HCl 30 MG eCW1 ([facility]) duloxetine 30 MG Delayed Release Oral Capsule Duloxeti ne HCl 30 MG Duloxetine HCl 30 MG 05/19/2020 12:00:00 AM EST 1.0 {capsule} a ctive Duloxetine HCl 30 MG eCW1 ([facility]) duloxetine 30 MG Delayed Release Oral Capsule Duloxeti ne HCl 30 MG Duloxetine HCl 30 MG 05/19/2020 12:00:00 AM EST 1.0 {capsule} a ctive Duloxetine HCl 30 MG eCW1 ([facility]) duloxetine 30 MG Delayed Release Oral Capsule Duloxeti ne HCl 30 MG Duloxetine HCl 30 MG 05/19/2020 12:00:00 AM EST 1.0 {capsule} a ctive Duloxetine HCl 30 MG eCW1 ([facility]) duloxetine 30 MG Delayed Release Oral Capsule Duloxeti ne HCl 30 MG Duloxetine HCl 30 MG 05/19/2020 12:00:00 AM EST 1.0 {capsule} a ctive Duloxetine HCl 30 MG eCW1 ([facility]) duloxetine 30 MG Delayed Release Oral Capsule Duloxeti ne HCl 30 MG Duloxetine HCl 30 MG 05/19/2020 12:00:00 AM EST 1.0 {capsule} a ctive Duloxetine HCl 30 MG eCW1 ([facility]) duloxetine 30 MG Delayed Release Oral Capsule Duloxeti ne HCl 30 MG Duloxetine HCl 30 MG 05/19/2020 12:00:00 AM EST 1.0 {capsule} a ctive Duloxetine HCl 30 MG eCW1 ([facility]) duloxetine 30 MG Delayed Release Oral Capsule Duloxeti ne HCl 30 MG Duloxetine HCl 30 MG 05/19/2020 12:00:00 AM EST 1.0 {capsule} a ctive Duloxetine HCl 30 MG eCW1 ([facility]) duloxetine 30 MG Delayed Release Oral Capsule Duloxeti ne HCl 30 MG Duloxetine HCl 30 MG 05/19/2020 12:00:00 AM EST 1.0 {capsule} a ctive Duloxetine HCl 30 MG eCW1 ([facility]) 10 mg 05/19/2020 12:00:00 AM EST [...] a ctive Duloxetine HCl 30 MG eCW1 ([facility]) duloxetine 30 MG Delayed Release Oral Capsule Duloxeti ne HCl 30 MG Duloxetine HCl 30 MG 05/19/2020 12:00:00 AM EST 1.0 {capsule} a ctive Duloxetine HCl 30 MG eCW1 ([facility]) duloxetine 30 MG Delayed Release Oral Capsule Duloxeti ne HCl 30 MG Duloxetine HCl 30 MG 05/19/2020 12:00:00 AM EST 1.0 {capsule} a ctive Duloxetine HCl 30 MG eCW1 ([facility]) 50 mg 05/14/2020 12:00:00 AM EST [...] {tablet} active Te lmisartan 20 MG eCW1 ([facility]) telmisartan 20 MG Oral Tablet Telmisartan 20 MG Telmisartan 20 MG 05/01/2020 12:00:00 AM EST active Telmisar freed 20 MG eCW1 ([facility]) telmisartan 20 MG Oral Tablet Telmisartan 20 MG Telmisartan 20 MG 05/01/2020 12:00:00 AM EST 1.0 {tablet} active Te lmisartan 20 MG eCW1 ([facility]) telmisartan 20 MG Oral Tablet Telmisartan 20 MG Telmisartan 20 MG 05/01/2020 12:00:00 AM EST 1.0 {tablet} active Te lmisartan 20 MG eCW1 ([facility]) telmisartan 20 MG Oral Tablet Telmisartan 20 MG Telmisartan 20 MG 05/01/2020 12:00:00 AM EST 1.0 {tablet} active Te lmisartan 20 MG eCW1 ([facility]) telmisartan 20 MG Oral Tablet Telmisartan 20 MG Telmisartan 20 MG 05/01/2020 12:00:00 AM EST active Telmisar freed 20 MG eCW1 ([facility]) telmisartan 20 MG Oral Tablet Telmisartan 20 MG Telmisartan 20 MG 05/01/2020 12:00:00 AM EST 1.0 {tablet} active Te lmisartan 20 MG eCW1 ([facility]) telmisartan 20 MG Oral Tablet Telmisartan 20 MG Telmisartan 20 MG 05/01/2020 12:00:00 AM EST 1.0 {tablet} active Te lmisartan 20 MG eCW1 ([facility]) carvedilol 12.5 MG Oral Tablet CARVEDILOL 05/01/2020 12:00:00 AM EST tablet 180 TAKE ONE TABLET BY MOUTH TWICE A DAY WITH FOOD TAKE ON E TABLET BY MOUTH TWICE A DAY WITH FOOD SOLD: 08/01/2020 [facility] telmisartan 20 MG Oral Tablet Telmisartan 20 MG Telmisartan 20 MG 05/01/2020 12:00:00 AM EST 1.0 {tablet} active Te lmisartan 20 MG eCW1 ([facility]) telmisartan 20 MG Oral Tablet TELMISARTAN [...] EST active Telmisar freed 20 MG eCW1 ([facility]) telmisartan 20 MG Oral Tablet Telmisartan 20 MG Telmisartan 20 MG 05/01/2020 12:00:00 AM EST active Telmisar freed 20 MG eCW1 ([facility]) telmisartan 20 MG Oral Tablet Telmisartan 20 MG Telmisartan 20 MG 05/01/2020 12:00:00 AM EST 1.0 {tablet} active Te lmisartan 20 MG eCW1 ([facility]) 20 mg 05/01/2020 12:00:00 AM EST tablet 10 TAKE ONE TABLET BY MOUTH TWICE A DAY TAKE ONE TABLET BY MOUTH TWICE A DAY SOLD: 05/01/2020 [facility] telmisartan 20 MG Oral Tablet Telmisartan 20 MG Telmisartan 20 MG 05/01/2020 12:00:00 AM EST 1.0 {tablet} active Te lmisartan 20 MG eCW1 ([facility]) carvedilol 12.5 MG Oral Tablet CARVEDILOL 05/01/2020 12:00:00 AM EST tablet 180 TAKE ONE TABLET BY MOUTH TWICE A DAY WITH FOOD TAKE ON E TABLET BY MOUTH TWICE A DAY WITH FOOD SOLD: 05/01/2020 [facility] 25 mcg 05/01/2020 12:00:00 AM EST tablet 90 TAKE ONE TABLET BY MOUTH EVERY DAY TAKE ONE TABLET BY MOUTH EVERY DAY SOLD: 05/01/2020 [facility] telmisartan 20 MG Oral Tablet Telmisartan 20 MG Telmisartan 20 MG 05/01/2020 12:00:00 AM EST 1.0 {tablet} active Te lmisartan 20 MG eCW1 ([facility]) telmisartan 20 MG Oral Tablet TELMISARTAN 05/01/2020 12:00:00 AM EST tablet 30 TAKE 1/2 TABLET BY MOUTH TWO TIMES A DAY TAKE 1/2 TABL ET BY MOUTH TWO TIMES A DAY SOLD: 05/01/2020 [facility] telmisartan 20 MG Oral Tablet Telmisartan 20 MG Telmisartan 20 MG 05/01/2020 12:00:00 AM EST active Telmisar freed 20 MG eCW1 ([facility]) telmisartan 20 MG Oral Tablet Telmisartan 20 MG Telmisartan 20 MG 05/01/2020 12:00:00 AM EST 1.0 {tablet} active Te lmisartan 20 MG eCW1 ([facility]) telmisartan 20 MG Oral Tablet Telmisartan 20 MG Telmisartan 20 MG 05/01/2020 12:00:00 AM EST 1.0 {tablet} active Te lmisartan 20 MG eCW1 ([facility]) telmisartan 20 MG Oral Tablet Telmisartan 20 MG Telmisartan 20 MG 05/01/2020 12:00:00 AM EST 1.0 {tablet} active Te lmisartan 20 MG eCW1 ([facility]) Nebulizer/Tubing/Mouthpiece - Nebulizer/Tubing/Mouthpiece - 04/21/2020 12:00:00 AM EST active Nebulizer/Tubing/ Mouthpiece - eCW1 ([facility]) Nebulizer - Nebulizer - 04/21/2020 12:00:00 AM EST active Nebulizer - eCW1 ([facility]) Nebulizer - Nebulizer - 04/21/2020 12:00:00 AM EST active Nebulizer - eCW1 ([facility]) Nebulizer/Tubing/Mouthpiece - Nebulizer/Tubing/Mouthpiece - 04/21/2020 12:00:00 AM EST active Nebulizer/Tubing/ Mouthpiece - eCW1 ([facility]) Nebulizer - Nebulizer - 04/21/2020 12:00:00 AM EST active Nebulizer - eCW1 ([facility]) Nebulizer - Nebulizer - 04/21/2020 12:00:00 AM EST active Nebulizer - eCW1 ([facility]) Nebulizer/Tubing/Mouthpiece - Nebulizer/Tubing/Mouthpiece - 04/21/2020 12:00:00 AM EST active Nebulizer/Tubing/ Mouthpiece - eCW1 ([facility]) Albuterol 0.83 MG/ML Inhalant Solution Albuterol Sulfa te (2.5 MG/3ML) 0.083% Albuterol Sulfate (2.5 MG/3ML) 0.083% 04/21/2020 12:00:00 AM EST 3.0 {ml_as_needed} active Albuterol Sulfate (2.5 MG/3ML) 0.083% eCW1 ([facility]) Nebulizer/Tubing/Mouthpiece - Nebulizer/Tubing/Mouthpiece - 04/21/2020 12:00:00 AM EST active Nebulizer/Tubing/ Mouthpiece - eCW1 ([facility]) Nebulizer - Nebulizer - 04/21/2020 12:00:00 AM EST active Nebulizer - eCW1 ([facility]) Albuterol 0.83 MG/ML Inhalant Solution Albuterol Sulfa te (2.5 MG/3ML) 0.083% Albuterol Sulfate (2.5 MG/3ML) 0.083% 04/21/2020 12:00:00 AM EST 3.0 {ml_as_needed} active Albuterol Sulfate (2.5 MG/3ML) 0.083% eCW1 ([facility]) Nebulizer - Nebulizer - 04/21/2020 12:00:00 AM EST active eCW1 ([facility]) Nebulizer - Nebulizer - 04/21/2020 12:00:00 AM EST active Nebulizer - eCW1 ([facility]) NEBULIZER AND COMPRESSOR 04/21/2020 12:00:00 AM EST device 1 USE DIRECTED USE DIRECTED SOLD: 04/21/2020 [facility] Nebulizer - Nebulizer - 04/21/2020 12:00:00 AM EST active Nebulizer - eCW1 ([facility]) Albuterol 0.83 MG/ML Inhalant Solution Albuterol Sulfa te (2.5 MG/3ML) 0.083% Albuterol Sulfate (2.5 MG/3ML) 0.083% 04/21/2020 12:00:00 AM EST 3.0 {ml_as_needed} active eCW1 ([facility]) Nebulizer - Nebulizer - 04/21/2020 12:00:00 AM EST active Nebulizer - eCW1 ([facility]) Nebulizer - Nebulizer - 04/21/2020 12:00:00 AM EST active Nebulizer - eCW1 ([facility]) Albuterol 0.83 MG/ML Inhalant Solution Albuterol Sulfa te (2.5 MG/3ML) 0.083% Albuterol Sulfate (2.5 MG/3ML) 0.083% 04/21/2020 12:00:00 AM EST 3.0 {ml_as_needed} active eCW1 ([facility]) Albuterol 0.83 MG/ML Inhalant Solution Albuterol Sulfa te (2.5 MG/3ML) 0.083% Albuterol Sulfate (2.5 MG/3ML) 0.083% 04/21/2020 12:00:00 AM EST 3.0 {ml_as_needed} active Albuterol Sulfate (2.5 MG/3ML) 0.083% W1 ([facility]) Nebulizer - Nebulizer - 04/21/2020 12:00:00 AM EST active Nebulizer - eCW1 ([facility]) Nebulizer/Tubing/Mouthpiece - Nebulizer/Tubing/Mouthpiece - 04/21/2020 12:00:00 AM EST active Nebulizer/Tubing/ Mouthpiece - eCW1 ([facility]) Nebulizer/Tubing/Mouthpiece - Nebulizer/Tubing/Mouthpiece - 04/21/2020 12:00:00 AM EST active Nebulizer/Tubing/ Mouthpiece - eCW1 ([facility]) Nebulizer/Tubing/Mouthpiece - Nebulizer/Tubing/Mouthpiece - 04/21/2020 12:00:00 AM EST active Nebulizer/Tubing/ Mouthpiece - eCW1 ([facility]) Nebulizer/Tubing/Mouthpiece - Nebulizer/Tubing/Mouthpiece - 04/21/2020 12:00:00 AM EST active Nebulizer/Tubing/ Mouthpiece - eCW1 ([facility]) Nebulizer/Tubing/Mouthpiece - Nebulizer/Tubing/Mouthpiece - 04/21/2020 12:00:00 AM EST active Nebulizer/Tubing/ Mouthpiece - eCW1 ([facility]) Albuterol 0.83 MG/ML Inhalant Solution Albuterol Sulfa te (2.5 MG/3ML) 0.083% Albuterol Sulfate (2.5 MG/3ML) 0.083% 04/21/2020 12:00:00 AM EST 3.0 {ml_as_needed} active Albuterol Sulfate (2.5 MG/3ML) 0.083% eCW1 ([facility]) Albuterol 0.83 MG/ML Inhalant Solution Albuterol Sulfa te (2.5 MG/3ML) 0.083% Albuterol Sulfate (2.5 MG/3ML) 0.083% 04/21/2020 12:00:00 AM EST 3.0 {ml_as_needed} active Albuterol Sulfate (2.5 MG/3ML) 0.083% eCW1 ([facility]) Albuterol 0.83 MG/ML Inhalant Solution Albuterol Sulfa te (2.5 MG/3ML) 0.083% Albuterol Sulfate (2.5 MG/3ML) 0.083% 04/21/2020 12:00:00 AM EST 3.0 {ml_as_needed} active Albuterol Sulfate (2.5 MG/3ML) 0.083% eCW1 ([facility]) Nebulizer - Nebulizer - 04/21/2020 12:00:00 AM EST active Nebulizer - eCW1 ([facility]) Nebulizer - Nebulizer - 04/21/2020 12:00:00 AM EST active Nebulizer - eCW1 ([facility]) Nebulizer/Tubing/Mouthpiece - Nebulizer/Tubing/Mouthpiece - 04/21/2020 12:00:00 AM EST active eCW1 (Counts include [facility] beds at the [facility]) Nebulizer - Nebulizer - 04/21/2020 12:00:00 AM EST active Nebulizer - eCW1 ([facility]) Albuterol 0.83 MG/ML Inhalant Solution Albuterol Sulfa te (2.5 MG/3ML) 0.083% Albuterol Sulfate (2.5 MG/3ML) 0.083% 04/21/2020 12:00:00 AM EST 3.0 {ml_as_needed} active Albuterol Sulfate (2.5 MG/3ML) 0.083% eCW1 ([facility]) Nebulizer/Tubing/Mouthpiece - Nebulizer/Tubing/Mouthpiece - 04/21/2020 12:00:00 AM EST active Nebulizer/Tubing/ Mouthpiece - eCW1 ([facility]) Nebulizer/Tubing/Mouthpiece - Nebulizer/Tubing/Mouthpiece - 04/21/2020 12:00:00 AM EST active Nebulizer/Tubing/ Mouthpiece - eCW1 ([facility]) Albuterol 0.83 MG/ML Inhalant Solution Albuterol Sulfa te (2.5 MG/3ML) 0.083% Albuterol Sulfate (2.5 MG/3ML) 0.083% 04/21/2020 12:00:00 AM EST 3.0 {ml_as_needed} active Albuterol Sulfate (2.5 MG/3ML) 0.083% eCW1 ([facility]) Nebulizer - Nebulizer - 04/21/2020 12:00:00 AM EST active Nebulizer - eCW1 ([facility]) Albuterol 0.83 MG/ML Inhalant Solution Albuterol Sulfa te (2.5 MG/3ML) 0.083% Albuterol Sulfate (2.5 MG/3ML) 0.083% 04/21/2020 12:00:00 AM EST 3.0 {ml_as_needed} active Albuterol Sulfate (2.5 MG/3ML) 0.083% eCW1 ([facility]) Albuterol 0.83 MG/ML Inhalant Solution Albuterol Sulfa te (2.5 MG/3ML) 0.083% Albuterol Sulfate (2.5 MG/3ML) 0.083% 04/21/2020 12:00:00 AM EST 3.0 {ml_as_needed} active Albuterol Sulfate (2.5 MG/3ML) 0.083% eCW1 ([facility]) Nebulizer/Tubing/Mouthpiece - Nebulizer/Tubing/Mouthpiece - 04/21/2020 12:00:00 AM EST active Nebulizer/Tubing/ Mouthpiece - eCW1 ([facility]) Nebulizer/Tubing/Mouthpiece - Nebulizer/Tubing/Mouthpiece - 04/21/2020 12:00:00 AM EST active Nebulizer/Tubing/ Mouthpiece - eCW1 ([facility]) Nebulizer/Tubing/Mouthpiece - Nebulizer/Tubing/Mouthpiece - 04/21/2020 12:00:00 AM EST active Nebulizer/Tubing/ Mouthpiece - eCW1 ([facility]) Nebulizer/Tubing/Mouthpiece - Nebulizer/Tubing/Mouthpiece - 04/21/2020 12:00:00 AM EST active Nebulizer/Tubing/ Mouthpiece - eCW1 ([facility]) Nebulizer/Tubing/Mouthpiece - Nebulizer/Tubing/Mouthpiece - 04/21/2020 12:00:00 AM EST active Nebulizer/Tubing/ Mouthpiece - eCW1 ([facility]) Nebulizer/Tubing/Mouthpiece - Nebulizer/Tubing/Mouthpiece - 04/21/2020 12:00:00 AM EST active Nebulizer/Tubing/ Mouthpiece - eCW1 ([facility]) Albuterol 0.83 MG/ML Inhalant Solution Albuterol Sulfa te (2.5 MG/3ML) 0.083% Albuterol Sulfate (2.5 MG/3ML) 0.083% 04/21/2020 12:00:00 AM EST 3.0 {ml_as_needed} active Albuterol Sulfate (2.5 MG/3ML) 0.083% eCW1 ([facility]) Albuterol 0.83 MG/ML Inhalant Solution Albuterol Sulfa te (2.5 MG/3ML) 0.083% Albuterol Sulfate (2.5 MG/3ML) 0.083% 04/21/2020 12:00:00 AM EST 3.0 {ml_as_needed} active Albuterol Sulfate (2.5 MG/3ML) 0.083% eCW1 ([facility]) Nebulizer - Nebulizer - 04/21/2020 12:00:00 AM EST active Nebulizer - eCW1 ([facility]) Albuterol 0.83 MG/ML Inhalant Solution Albuterol Sulfa te (2.5 MG/3ML) 0.083% Albuterol Sulfate (2.5 MG/3ML) 0.083% 04/21/2020 12:00:00 AM EST 3.0 {ml_as_needed} active Albuterol Sulfate (2.5 MG/3ML) 0.083% eCW1 ([facility]) Nebulizer - Nebulizer - 04/21/2020 12:00:00 AM EST active Nebulizer - eCW1 ([facility]) Nebulizer - Nebulizer - 04/21/2020 12:00:00 AM EST active Nebulizer - eCW1 ([facility]) Albuterol 0.83 MG/ML Inhalant Solution Albuterol Sulfa te (2.5 MG/3ML) 0.083% Albuterol Sulfate (2.5 MG/3ML) 0.083% 04/21/2020 12:00:00 AM EST 3.0 {ml_as_needed} active Albuterol Sulfate (2.5 MG/3ML) 0.083% W1 ([facility]) Nebulizer - Nebulizer - 04/21/2020 12:00:00 AM EST active Nebulizer - eCW1 ([facility]) Nebulizer/Tubing/Mouthpiece - Nebulizer/Tubing/Mouthpiece - 04/21/2020 12:00:00 AM EST active Nebulizer/Tubing/ Mouthpiece - eCW1 ([facility]) Nebulizer/Tubing/Mouthpiece - Nebulizer/Tubing/Mouthpiece - 04/21/2020 12:00:00 AM EST active Nebulizer/Tubing/ Mouthpiece - eCW1 ([facility]) Nebulizer - Nebulizer - 04/21/2020 12:00:00 AM EST active Nebulizer - eCW1 ([facility]) Nebulizer - Nebulizer - 04/21/2020 12:00:00 AM EST active Nebulizer - eCW1 ([facility]) Albuterol 0.83 MG/ML Inhalant Solution Albuterol Sulfa te (2.5 MG/3ML) 0.083% Albuterol Sulfate (2.5 MG/3ML) 0.083% 04/21/2020 12:00:00 AM EST 3.0 {ml_as_needed} active Albuterol Sulfate (2.5 MG/3ML) 0.083% eCW1 ([facility]) Albuterol 0.83 MG/ML Inhalant Solution Albuterol Sulfa te (2.5 MG/3ML) 0.083% Albuterol Sulfate (2.5 MG/3ML) 0.083% 04/21/2020 12:00:00 AM EST 3.0 {ml_as_needed} active Albuterol Sulfate (2.5 MG/3ML) 0.083% eCW1 ([facility]) Nebulizer/Tubing/Mouthpiece - Nebulizer/Tubing/Mouthpiece - 04/21/2020 12:00:00 AM EST active Nebulizer/Tubing/ Mouthpiece - eCW1 ([facility]) Albuterol 0.83 MG/ML Inhalant Solution Albuterol Sulfa te (2.5 MG/3ML) 0.083% Albuterol Sulfate (2.5 MG/3ML) 0.083% 04/21/2020 12:00:00 AM EST 3.0 {ml_as_needed} active Albuterol Sulfate (2.5 MG/3ML) 0.083% eCW1 ([facility]) Albuterol 0.83 MG/ML Inhalant Solution Albuterol Sulfa te (2.5 MG/3ML) 0.083% Albuterol Sulfate (2.5 MG/3ML) 0.083% 04/21/2020 12:00:00 AM EST 3.0 {ml_as_needed} active Albuterol Sulfate (2.5 MG/3ML) 0.083% eCW1 ([facility]) Albuterol 0.83 MG/ML Inhalant Solution Albuterol Sulfa te (2.5 MG/3ML) 0.083% Albuterol Sulfate (2.5 MG/3ML) 0.083% 04/21/2020 12:00:00 AM EST 3.0 {ml_as_needed} active Albuterol Sulfate (2.5 MG/3ML) 0.083% eCW1 ([facility]) Albuterol 0.83 MG/ML Inhalant Solution Albuterol Sulfa te (2.5 MG/3ML) 0.083% Albuterol Sulfate (2.5 MG/3ML) 0.083% 04/21/2020 12:00:00 AM EST 3.0 {ml_as_needed} active eCW1 ([facility]) Nebulizer - Nebulizer - 04/21/2020 12:00:00 AM EST active Nebulizer - eCW1 ([facility]) Nebulizer - Nebulizer - 04/21/2020 12:00:00 AM EST active Nebulizer - eCW1 ([facility]) Nebulizer - Nebulizer - 04/21/2020 12:00:00 AM EST active Nebulizer - eCW1 ([facility]) Albuterol 0.83 MG/ML Inhalant Solution Albuterol Sulfa te (2.5 MG/3ML) 0.083% Albuterol Sulfate (2.5 MG/3ML) 0.083% 04/21/2020 12:00:00 AM EST 3.0 {ml_as_needed} active Albuterol Sulfate (2.5 MG/3ML) 0.083% W1 ([facility]) Nebulizer/Tubing/Mouthpiece - Nebulizer/Tubing/Mouthpiece - 04/21/2020 12:00:00 AM EST active Nebulizer/Tubing/ Mouthpiece - eCW1 ([facility]) Albuterol 0.83 MG/ML Inhalant Solution Albuterol Sulfa te (2.5 MG/3ML) 0.083% Albuterol Sulfate (2.5 MG/3ML) 0.083% 04/21/2020 12:00:00 AM EST 3.0 {ml_as_needed} active eCW1 ([facility]) Albuterol 0.83 MG/ML Inhalant Solution Albuterol Sulfa te (2.5 MG/3ML) 0.083% Albuterol Sulfate (2.5 MG/3ML) 0.083% 04/21/2020 12:00:00 AM EST 3.0 {ml_as_needed} active Albuterol Sulfate (2.5 MG/3ML) 0.083% eCW1 ([facility]) Nebulizer/Tubing/Mouthpiece - Nebulizer/Tubing/Mouthpiece - 04/21/2020 12:00:00 AM EST active Nebulizer/Tubing/ Mouthpiece - eCW1 ([facility]) Nebulizer - Nebulizer - 04/21/2020 12:00:00 AM EST active Nebulizer - eCW1 ([facility]) Nebulizer/Tubing/Mouthpiece - Nebulizer/Tubing/Mouthpiece - 04/21/2020 12:00:00 AM EST active eCW1 (Counts include 234 beds at the [facility]) Nebulizer/Tubing/Mouthpiece - Nebulizer/Tubing/Mouthpiece - 04/21/2020 12:00:00 AM EST active Nebulizer/Tubing/ Mouthpiece - eCW1 ([facility]) Albuterol 0.83 MG/ML Inhalant Solution Albuterol Sulfa te (2.5 MG/3ML) 0.083% Albuterol Sulfate (2.5 MG/3ML) 0.083% 04/21/2020 12:00:00 AM EST 3.0 {ml_as_needed} active Albuterol Sulfate (2.5 MG/3ML) 0.083% eCW1 ([facility]) Nebulizer - Nebulizer - 04/21/2020 12:00:00 AM EST active Nebulizer - eCW1 ([facility]) Nebulizer/Tubing/Mouthpiece - Nebulizer/Tubing/Mouthpiece - 04/21/2020 12:00:00 AM EST active Nebulizer/Tubing/ Mouthpiece - eCW1 ([facility]) Nebulizer - Nebulizer - 04/21/2020 12:00:00 AM EST active Nebulizer - eCW1 ([facility]) Nebulizer - Nebulizer - 04/21/2020 12:00:00 AM EST active Nebulizer - eCW1 ([facility]) Nebulizer - Nebulizer - 04/21/2020 12:00:00 AM EST active Nebulizer - eCW1 ([facility]) Nebulizer/Tubing/Mouthpiece - Nebulizer/Tubing/Mouthpiece - 04/21/2020 12:00:00 AM EST active Nebulizer/Tubing/ Mouthpiece - eCW1 ([facility]) Albuterol 0.83 MG/ML Inhalant Solution Albuterol Sulfa te (2.5 MG/3ML) 0.083% Albuterol Sulfate (2.5 MG/3ML) 0.083% 04/21/2020 12:00:00 AM EST 3.0 {ml_as_needed} active Albuterol Sulfate (2.5 MG/3ML) 0.083% eCW1 ([facility]) Albuterol 0.83 MG/ML Inhalant Solution Albuterol Sulfa te (2.5 MG/3ML) 0.083% Albuterol Sulfate (2.5 MG/3ML) 0.083% 04/21/2020 12:00:00 AM EST 3.0 {ml_as_needed} active Albuterol Sulfate (2.5 MG/3ML) 0.083% eCW1 ([facility]) Nebulizer - Nebulizer - 04/21/2020 12:00:00 AM EST active eCW1 ([facility]) Nebulizer - Nebulizer - 04/21/2020 12:00:00 AM EST active Nebulizer - eCW1 ([facility]) Nebulizer/Tubing/Mouthpiece - Nebulizer/Tubing/Mouthpiece - 04/21/2020 12:00:00 AM EST active Nebulizer/Tubing/ Mouthpiece - eCW1 ([facility]) Nebulizer/Tubing/Mouthpiece - Nebulizer/Tubing/Mouthpiece - 04/21/2020 12:00:00 AM EST active Nebulizer/Tubing/ Mouthpiece - eCW1 ([facility]) Nebulizer/Tubing/Mouthpiece - Nebulizer/Tubing/Mouthpiece - 04/21/2020 12:00:00 AM EST active Nebulizer/Tubing/ Mouthpiece - eCW1 ([facility]) Albuterol 0.83 MG/ML Inhalant Solution Albuterol Sulfa te (2.5 MG/3ML) 0.083% Albuterol Sulfate (2.5 MG/3ML) 0.083% 04/21/2020 12:00:00 AM EST 3.0 {ml_as_needed} active Albuterol Sulfate (2.5 MG/3ML) 0.083% eCW1 ([facility]) Nebulizer - Nebulizer - 04/21/2020 12:00:00 AM EST active Nebulizer - eCW1 ([facility]) Albuterol 0.83 MG/ML Inhalant Solution Albuterol Sulfa te (2.5 MG/3ML) 0.083% Albuterol Sulfate (2.5 MG/3ML) 0.083% 04/21/2020 12:00:00 AM EST 3.0 {ml_as_needed} active Albuterol Sulfate (2.5 MG/3ML) 0.083% eCW1 ([facility]) Albuterol 0.83 MG/ML Inhalant Solution Albuterol Sulfa te (2.5 MG/3ML) 0.083% Albuterol Sulfate (2.5 MG/3ML) 0.083% 04/21/2020 12:00:00 AM EST 3.0 {ml_as_needed} active Albuterol Sulfate (2.5 MG/3ML) 0.083% eCW1 ([facility]) Albuterol 0.83 MG/ML Inhalant Solution Albuterol Sulfa te (2.5 MG/3ML) 0.083% Albuterol Sulfate (2.5 MG/3ML) 0.083% 04/21/2020 12:00:00 AM EST 3.0 {ml_as_needed} active Albuterol Sulfate (2.5 MG/3ML) 0.083% eCW1 ([facility]) Nebulizer/Tubing/Mouthpiece - Nebulizer/Tubing/Mouthpiece - 04/21/2020 12:00:00 AM EST active Nebulizer/Tubing/ Mouthpiece - eCW1 ([facility]) Nebulizer - Nebulizer - 04/21/2020 12:00:00 AM EST active Nebulizer - eCW1 ([facility]) Nebulizer/Tubing/Mouthpiece - Nebulizer/Tubing/Mouthpiece - 04/21/2020 12:00:00 AM EST active Nebulizer/Tubing/ Mouthpiece - eCW1 ([facility]) Nebulizer - Nebulizer - 04/21/2020 12:00:00 AM EST active Nebulizer - eCW1 ([facility]) Nebulizer - Nebulizer - 04/21/2020 12:00:00 AM EST active Nebulizer - eCW1 ([facility]) Albuterol 0.83 MG/ML Inhalant Solution Albuterol Sulfa te (2.5 MG/3ML) 0.083% Albuterol Sulfate (2.5 MG/3ML) 0.083% 04/21/2020 12:00:00 AM EST 3.0 {ml_as_needed} active Albuterol Sulfate (2.5 MG/3ML) 0.083% eCW1 ([facility]) Nebulizer/Tubing/Mouthpiece - Nebulizer/Tubing/Mouthpiece - 04/21/2020 12:00:00 AM EST active Nebulizer/Tubing/ Mouthpiece - eCW1 ([facility]) Nebulizer/Tubing/Mouthpiece - Nebulizer/Tubing/Mouthpiece - 04/21/2020 12:00:00 AM EST active Nebulizer/Tubing/ Mouthpiece - eCW1 ([facility]) Nebulizer - Nebulizer - 04/21/2020 12:00:00 AM EST active Nebulizer - eCW1 ([facility]) Albuterol 0.83 MG/ML Inhalant Solution Albuterol Sulfa te (2.5 MG/3ML) 0.083% Albuterol Sulfate (2.5 MG/3ML) 0.083% 04/21/2020 12:00:00 AM EST 3.0 {ml_as_needed} active Albuterol Sulfate (2.5 MG/3ML) 0.083% eCW1 ([facility]) Nebulizer/Tubing/Mouthpiece - Nebulizer/Tubing/Mouthpiece - 04/21/2020 12:00:00 AM EST active Nebulizer/Tubing/ Mouthpiece - eCW1 ([facility]) Nebulizer/Tubing/Mouthpiece - Nebulizer/Tubing/Mouthpiece - 04/21/2020 12:00:00 AM EST active eCW1 (Counts include 234 beds at the [facility]) Nebulizer/Tubing/Mouthpiece - Nebulizer/Tubing/Mouthpiece - 04/21/2020 12:00:00 AM EST active Nebulizer/Tubing/ Mouthpiece - eCW1 ([facility]) Albuterol 0.83 MG/ML Inhalant Solution Albuterol Sulfa te (2.5 MG/3ML) 0.083% Albuterol Sulfate (2.5 MG/3ML) 0.083% 04/21/2020 12:00:00 AM EST 3.0 {ml_as_needed} active Albuterol Sulfate (2.5 MG/3ML) 0.083% eCW1 ([facility]) Nebulizer - Nebulizer - 04/21/2020 12:00:00 AM EST active Nebulizer - eCW1 ([facility]) Nebulizer - Nebulizer - 04/21/2020 12:00:00 AM EST active Nebulizer - eCW1 ([facility]) Nebulizer - Nebulizer - 04/21/2020 12:00:00 AM EST active Nebulizer - eCW1 ([facility]) Nebulizer - Nebulizer - 04/21/2020 12:00:00 AM EST active eCW1 ([facility]) Albuterol 0.83 MG/ML Inhalant Solution Albuterol Sulfa te (2.5 MG/3ML) 0.083% Albuterol Sulfate (2.5 MG/3ML) 0.083% 04/21/2020 12:00:00 AM EST 3.0 {ml_as_needed} active Albuterol Sulfate (2.5 MG/3ML) 0.083% eCW1 ([facility]) Albuterol 0.83 MG/ML Inhalant Solution Albuterol Sulfa te (2.5 MG/3ML) 0.083% Albuterol Sulfate (2.5 MG/3ML) 0.083% 04/21/2020 12:00:00 AM EST 3.0 {ml_as_needed} active Albuterol Sulfate (2.5 MG/3ML) 0.083% eCW1 ([facility]) Nebulizer/Tubing/Mouthpiece - Nebulizer/Tubing/Mouthpiece - 04/21/2020 12:00:00 AM EST active Nebulizer/Tubing/ Mouthpiece - eCW1 ([facility]) Nebulizer/Tubing/Mouthpiece - Nebulizer/Tubing/Mouthpiece - 04/21/2020 12:00:00 AM EST active Nebulizer/Tubing/ Mouthpiece - eCW1 ([facility]) Amlodipine 2.5 MG Oral Tablet AmLODIPine Besylate 2.5 MG AmLODIPine Besylate 2.5 MG 04/21/2020 12:00:00 AM EST active AmLODIPine Besylate 2.5 MG eCW1 ([facility]) Nebulizer - Nebulizer - 04/21/2020 12:00:00 AM EST active Nebulizer - eCW1 ([facility]) Albuterol 0.83 MG/ML Inhalant Solution Albuterol Sulfa te (2.5 MG/3ML) 0.083% Albuterol Sulfate (2.5 MG/3ML) 0.083% 04/21/2020 12:00:00 AM EST 3.0 {ml_as_needed} active Albuterol Sulfate (2.5 MG/3ML) 0.083% eCW1 ([facility]) Nebulizer - Nebulizer - 04/21/2020 12:00:00 AM EST active Nebulizer - eCW1 ([facility]) Nebulizer - Nebulizer - 04/21/2020 12:00:00 AM EST active Nebulizer - eCW1 ([facility]) Nebulizer/Tubing/Mouthpiece - Nebulizer/Tubing/Mouthpiece - 04/21/2020 12:00:00 AM EST active Nebulizer/Tubing/ Mouthpiece - eCW1 ([facility]) Nebulizer - Nebulizer - 04/21/2020 12:00:00 AM EST active Nebulizer - eCW1 ([facility]) Nebulizer/Tubing/Mouthpiece - Nebulizer/Tubing/Mouthpiece - 04/21/2020 12:00:00 AM EST active Nebulizer/Tubing/ Mouthpiece - eCW1 ([facility]) Nebulizer - Nebulizer - 04/21/2020 12:00:00 AM EST active Nebulizer - eCW1 ([facility]) Nebulizer - Nebulizer - 04/21/2020 12:00:00 AM EST active Nebulizer - eCW1 ([facility]) Nebulizer/Tubing/Mouthpiece - Nebulizer/Tubing/Mouthpiece - 04/21/2020 12:00:00 AM EST active Nebulizer/Tubing/ Mouthpiece - eCW1 ([facility]) 2.5 mg /3 mL (0.083 %) 04/21/2020 12:00:00 AM EST solu tion for nebulization 300 INHALE ONE VIAL VIA NEBULIZER EVERY 6 HO URS NEEDED INHALE ONE VIAL VIA NEBULIZER EVERY 6 HOURS NEEDED SOLD: 04/21/2020 [facility] Nebulizer - Nebulizer - 04/21/2020 12:00:00 AM EST active Nebulizer - eCW1 ([facility]) Nebulizer - Nebulizer - 04/21/2020 12:00:00 AM EST active Nebulizer - eCW1 ([facility]) Nebulizer/Tubing/Mouthpiece - Nebulizer/Tubing/Mouthpiece - 04/21/2020 12:00:00 AM EST active Nebulizer/Tubing/ Mouthpiece - eCW1 ([facility]) Albuterol 0.83 MG/ML Inhalant Solution Albuterol Sulfa te (2.5 MG/3ML) 0.083% Albuterol Sulfate (2.5 MG/3ML) 0.083% 04/21/2020 12:00:00 AM EST 3.0 {ml_as_needed} active Albuterol Sulfate (2.5 MG/3ML) 0.083% eCW1 ([facility]) Nebulizer - Nebulizer - 04/21/2020 12:00:00 AM EST active Nebulizer - eCW1 ([facility]) Nebulizer/Tubing/Mouthpiece - Nebulizer/Tubing/Mouthpiece - 04/21/2020 12:00:00 AM EST active Nebulizer/Tubing/ Mouthpiece - eCW1 ([facility]) Nebulizer/Tubing/Mouthpiece - Nebulizer/Tubing/Mouthpiece - 04/21/2020 12:00:00 AM EST active Nebulizer/Tubing/ Mouthpiece - eCW1 ([facility]) Nebulizer - Nebulizer - 04/21/2020 12:00:00 AM EST active Nebulizer - eCW1 ([facility]) Albuterol 0.83 MG/ML Inhalant Solution Albuterol Sulfa te (2.5 MG/3ML) 0.083% Albuterol Sulfate (2.5 MG/3ML) 0.083% 04/21/2020 12:00:00 AM EST 3.0 {ml_as_needed} active Albuterol Sulfate (2.5 MG/3ML) 0.083% W1 ([facility]) Nebulizer - Nebulizer - 04/21/2020 12:00:00 AM EST active Nebulizer - eCW1 ([facility]) Albuterol 0.83 MG/ML Inhalant Solution Albuterol Sulfa te (2.5 MG/3ML) 0.083% Albuterol Sulfate (2.5 MG/3ML) 0.083% 04/21/2020 12:00:00 AM EST 3.0 {ml_as_needed} active Albuterol Sulfate (2.5 MG/3ML) 0.083% W1 ([facility]) Albuterol 0.83 MG/ML Inhalant Solution Albuterol Sulfa te (2.5 MG/3ML) 0.083% Albuterol Sulfate (2.5 MG/3ML) 0.083% 04/21/2020 12:00:00 AM EST 3.0 {ml_as_needed} active Albuterol Sulfate (2.5 MG/3ML) 0.083% eCW1 ([facility]) Albuterol 0.83 MG/ML Inhalant Solution Albuterol Sulfa te (2.5 MG/3ML) 0.083% Albuterol Sulfate (2.5 MG/3ML) 0.083% 04/21/2020 12:00:00 AM EST 3.0 {ml_as_needed} active Albuterol Sulfate (2.5 MG/3ML) 0.083% eCW1 ([facility]) Nebulizer/Tubing/Mouthpiece - Nebulizer/Tubing/Mouthpiece - 04/21/2020 12:00:00 AM EST active Nebulizer/Tubing/ Mouthpiece - eCW1 ([facility]) Nebulizer/Tubing/Mouthpiece - Nebulizer/Tubing/Mouthpiece - 04/21/2020 12:00:00 AM EST active Nebulizer/Tubing/ Mouthpiece - eCW1 ([facility]) Albuterol 0.83 MG/ML Inhalant Solution Albuterol Sulfa te (2.5 MG/3ML) 0.083% Albuterol Sulfate (2.5 MG/3ML) 0.083% 04/21/2020 12:00:00 AM EST 3.0 {ml_as_needed} active Albuterol Sulfate (2.5 MG/3ML) 0.083% eCW1 ([facility]) Albuterol 0.83 MG/ML Inhalant Solution Albuterol Sulfa te (2.5 MG/3ML) 0.083% Albuterol Sulfate (2.5 MG/3ML) 0.083% 04/21/2020 12:00:00 AM EST 3.0 {ml_as_needed} active Albuterol Sulfate (2.5 MG/3ML) 0.083% W1 ([facility]) Nebulizer/Tubing/Mouthpiece - Nebulizer/Tubing/Mouthpiece - 04/21/2020 12:00:00 AM EST active Nebulizer/Tubing/ Mouthpiece - eCW1 ([facility]) Albuterol 0.83 MG/ML Inhalant Solution Albuterol Sulfa te (2.5 MG/3ML) 0.083% Albuterol Sulfate (2.5 MG/3ML) 0.083% 04/21/2020 12:00:00 AM EST 3.0 {ml_as_needed} active Albuterol Sulfate (2.5 MG/3ML) 0.083% eCW1 ([facility]) Nebulizer/Tubing/Mouthpiece - Nebulizer/Tubing/Mouthpiece - 04/21/2020 12:00:00 AM EST active Nebulizer/Tubing/ Mouthpiece - eCW1 ([facility]) Albuterol 0.83 MG/ML Inhalant Solution Albuterol Sulfa te (2.5 MG/3ML) 0.083% Albuterol Sulfate (2.5 MG/3ML) 0.083% 04/21/2020 12:00:00 AM EST 3.0 {ml_as_needed} active Albuterol Sulfate (2.5 MG/3ML) 0.083% eCW1 ([facility]) Nebulizer/Tubing/Mouthpiece - Nebulizer/Tubing/Mouthpiece - 04/21/2020 12:00:00 AM EST active Nebulizer/Tubing/ Mouthpiece - eCW1 ([facility]) Nebulizer - Nebulizer - 04/21/2020 12:00:00 AM EST active Nebulizer - eCW1 ([facility]) Nebulizer - Nebulizer - 04/21/2020 12:00:00 AM EST active Nebulizer - eCW1 ([facility]) Albuterol 0.83 MG/ML Inhalant Solution Albuterol Sulfa te (2.5 MG/3ML) 0.083% Albuterol Sulfate (2.5 MG/3ML) 0.083% 04/21/2020 12:00:00 AM EST 3.0 {ml_as_needed} active Albuterol Sulfate (2.5 MG/3ML) 0.083% eCW1 ([facility]) Nebulizer/Tubing/Mouthpiece - Nebulizer/Tubing/Mouthpiece - 04/21/2020 12:00:00 AM EST active Nebulizer/Tubing/ Mouthpiece - eCW1 ([facility]) Albuterol 0.83 MG/ML Inhalant Solution Albuterol Sulfa te (2.5 MG/3ML) 0.083% Albuterol Sulfate (2.5 MG/3ML) 0.083% 04/21/2020 12:00:00 AM EST 3.0 {ml_as_needed} active Albuterol Sulfate (2.5 MG/3ML) 0.083% eCW1 ([facility]) Nebulizer - Nebulizer - 04/21/2020 12:00:00 AM EST active Nebulizer - eCW1 ([facility]) Nebulizer/Tubing/Mouthpiece - Nebulizer/Tubing/Mouthpiece - 04/21/2020 12:00:00 AM EST active Nebulizer/Tubing/ Mouthpiece - eCW1 ([facility]) Nebulizer/Tubing/Mouthpiece - Nebulizer/Tubing/Mouthpiece - 04/21/2020 12:00:00 AM EST active Nebulizer/Tubing/ Mouthpiece - eCW1 ([facility]) Nebulizer/Tubing/Mouthpiece - Nebulizer/Tubing/Mouthpiece - 04/21/2020 12:00:00 AM EST active Nebulizer/Tubing/ Mouthpiece - eCW1 ([facility]) Albuterol 0.83 MG/ML Inhalant Solution Albuterol Sulfa te (2.5 MG/3ML) 0.083% Albuterol Sulfate (2.5 MG/3ML) 0.083% 04/21/2020 12:00:00 AM EST 3.0 {ml_as_needed} active Albuterol Sulfate (2.5 MG/3ML) 0.083% W1 ([facility]) Nebulizer/Tubing/Mouthpiece - Nebulizer/Tubing/Mouthpiece - 04/21/2020 12:00:00 AM EST active Nebulizer/Tubing/ Mouthpiece - eCW1 ([facility]) Nebulizer - Nebulizer - 04/21/2020 12:00:00 AM EST active Nebulizer - eCW1 ([facility]) Nebulizer - Nebulizer - 04/21/2020 12:00:00 AM EST active Nebulizer - eCW1 ([facility]) Albuterol 0.83 MG/ML Inhalant Solution Albuterol Sulfa te (2.5 MG/3ML) 0.083% Albuterol Sulfate (2.5 MG/3ML) 0.083% 04/21/2020 12:00:00 AM EST 3.0 {ml_as_needed} active Albuterol Sulfate (2.5 MG/3ML) 0.083% eCW1 ([facility]) Albuterol 0.83 MG/ML Inhalant Solution Albuterol Sulfa te (2.5 MG/3ML) 0.083% Albuterol Sulfate (2.5 MG/3ML) 0.083% 04/21/2020 12:00:00 AM EST 3.0 {ml_as_needed} active Albuterol Sulfate (2.5 MG/3ML) 0.083% eCW1 ([facility]) Albuterol 0.83 MG/ML Inhalant Solution Albuterol Sulfa te (2.5 MG/3ML) 0.083% Albuterol Sulfate (2.5 MG/3ML) 0.083% 04/21/2020 12:00:00 AM EST 3.0 {ml_as_needed} active Albuterol Sulfate (2.5 MG/3ML) 0.083% eCW1 ([facility]) Nebulizer - Nebulizer - 04/21/2020 12:00:00 AM EST active Nebulizer - eCW1 ([facility]) Nebulizer/Tubing/Mouthpiece - Nebulizer/Tubing/Mouthpiece - 04/21/2020 12:00:00 AM EST active Nebulizer/Tubing/ Mouthpiece - eCW1 ([facility]) Nebulizer/Tubing/Mouthpiece - Nebulizer/Tubing/Mouthpiece - 04/21/2020 12:00:00 AM EST active Nebulizer/Tubing/ Mouthpiece - eCW1 ([facility]) Nebulizer/Tubing/Mouthpiece - Nebulizer/Tubing/Mouthpiece - 04/21/2020 12:00:00 AM EST active Nebulizer/Tubing/ Mouthpiece - eCW1 ([facility]) Albuterol 0.83 MG/ML Inhalant Solution Albuterol Sulfa te (2.5 MG/3ML) 0.083% Albuterol Sulfate (2.5 MG/3ML) 0.083% 04/21/2020 12:00:00 AM EST 3.0 {ml_as_needed} active Albuterol Sulfate (2.5 MG/3ML) 0.083% eCW1 ([facility]) Albuterol 0.83 MG/ML Inhalant Solution Albuterol Sulfa te (2.5 MG/3ML) 0.083% Albuterol Sulfate (2.5 MG/3ML) 0.083% 04/21/2020 12:00:00 AM EST 3.0 {ml_as_needed} active Albuterol Sulfate (2.5 MG/3ML) 0.083% eCW1 ([facility]) Nebulizer - Nebulizer - 04/21/2020 12:00:00 AM EST active Nebulizer - eCW1 ([facility]) Nebulizer - Nebulizer - 04/21/2020 12:00:00 AM EST active Nebulizer - eCW1 ([facility]) Nebulizer/Tubing/Mouthpiece - Nebulizer/Tubing/Mouthpiece - 04/21/2020 12:00:00 AM EST active Nebulizer/Tubing/ Mouthpiece - eCW1 ([facility]) Nebulizer - Nebulizer - 04/21/2020 12:00:00 AM EST active Nebulizer - eCW1 ([facility]) Nebulizer/Tubing/Mouthpiece - Nebulizer/Tubing/Mouthpiece - 04/21/2020 12:00:00 AM EST active Nebulizer/Tubing/ Mouthpiece - eCW1 ([facility]) Albuterol 0.83 MG/ML Inhalant Solution Albuterol Sulfa te (2.5 MG/3ML) 0.083% Albuterol Sulfate (2.5 MG/3ML) 0.083% 04/21/2020 12:00:00 AM EST 3.0 {ml_as_needed} active Albuterol Sulfate (2.5 MG/3ML) 0.083% eCW1 ([facility]) Albuterol 0.83 MG/ML Inhalant Solution Albuterol Sulfa te (2.5 MG/3ML) 0.083% Albuterol Sulfate (2.5 MG/3ML) 0.083% 04/21/2020 12:00:00 AM EST 3.0 {ml_as_needed} active Albuterol Sulfate (2.5 MG/3ML) 0.083% eCW1 ([facility]) Nebulizer - Nebulizer - 04/21/2020 12:00:00 AM EST active Nebulizer - eCW1 ([facility]) Albuterol 0.83 MG/ML Inhalant Solution Albuterol Sulfa te (2.5 MG/3ML) 0.083% Albuterol Sulfate (2.5 MG/3ML) 0.083% 04/21/2020 12:00:00 AM EST 3.0 {ml_as_needed} active Albuterol Sulfate (2.5 MG/3ML) 0.083% eCW1 ([facility]) Nebulizer/Tubing/Mouthpiece - Nebulizer/Tubing/Mouthpiece - 04/21/2020 12:00:00 AM EST active Nebulizer/Tubing/ Mouthpiece - eCW1 ([facility]) Albuterol 0.83 MG/ML Inhalant Solution Albuterol Sulfa te (2.5 MG/3ML) 0.083% Albuterol Sulfate (2.5 MG/3ML) 0.083% 04/21/2020 12:00:00 AM EST 3.0 {ml_as_needed} active Albuterol Sulfate (2.5 MG/3ML) 0.083% eCW1 ([facility]) Albuterol 0.83 MG/ML Inhalant Solution Albuterol Sulfa te (2.5 MG/3ML) 0.083% Albuterol Sulfate (2.5 MG/3ML) 0.083% 04/21/2020 12:00:00 AM EST 3.0 {ml_as_needed} active Albuterol Sulfate (2.5 MG/3ML) 0.083% eCW1 ([facility]) Nebulizer - Nebulizer - 04/21/2020 12:00:00 AM EST active Nebulizer - eCW1 ([facility]) Nebulizer/Tubing/Mouthpiece - Nebulizer/Tubing/Mouthpiece - 04/21/2020 12:00:00 AM EST active Nebulizer/Tubing/ Mouthpiece - eCW1 ([facility]) Nebulizer/Tubing/Mouthpiece - Nebulizer/Tubing/Mouthpiece - 04/21/2020 12:00:00 AM EST active Nebulizer/Tubing/ Mouthpiece - eCW1 ([facility]) Nebulizer - Nebulizer - 04/21/2020 12:00:00 AM EST active Nebulizer - eCW1 ([facility]) Nebulizer - Nebulizer - 04/21/2020 12:00:00 AM EST active Nebulizer - eCW1 ([facility]) Nebulizer/Tubing/Mouthpiece - Nebulizer/Tubing/Mouthpiece - 04/21/2020 12:00:00 AM EST active Nebulizer/Tubing/ Mouthpiece - eCW1 ([facility]) Albuterol 0.83 MG/ML Inhalant Solution Albuterol Sulfa te (2.5 MG/3ML) 0.083% Albuterol Sulfate (2.5 MG/3ML) 0.083% 04/21/2020 12:00:00 AM EST 3.0 {ml_as_needed} active Albuterol Sulfate (2.5 MG/3ML) 0.083% eCW1 ([facility]) Albuterol 0.83 MG/ML Inhalant Solution Albuterol Sulfa te (2.5 MG/3ML) 0.083% Albuterol Sulfate (2.5 MG/3ML) 0.083% 04/21/2020 12:00:00 AM EST 3.0 {ml_as_needed} active Albuterol Sulfate (2.5 MG/3ML) 0.083% eCW1 ([facility]) Nebulizer/Tubing/Mouthpiece - Nebulizer/Tubing/Mouthpiece - 04/21/2020 12:00:00 AM EST active eCW1 (Counts include 234 beds at the [facility]) Nebulizer/Tubing/Mouthpiece - Nebulizer/Tubing/Mouthpiece - 04/21/2020 12:00:00 AM EST active Nebulizer/Tubing/ Mouthpiece - eCW1 ([facility]) Albuterol 0.83 MG/ML Inhalant Solution Albuterol Sulfa te (2.5 MG/3ML) 0.083% Albuterol Sulfate (2.5 MG/3ML) 0.083% 04/21/2020 12:00:00 AM EST 3.0 {ml_as_needed} active Albuterol Sulfate (2.5 MG/3ML) 0.083% eCW1 ([facility]) Nebulizer - Nebulizer - 04/21/2020 12:00:00 AM EST active Nebulizer - eCW1 ([facility]) Nebulizer - Nebulizer - 04/21/2020 12:00:00 AM EST active Nebulizer - eCW1 ([facility]) Nebulizer - Nebulizer - 04/21/2020 12:00:00 AM EST active Nebulizer - eCW1 ([facility]) Nebulizer/Tubing/Mouthpiece - Nebulizer/Tubing/Mouthpiece - 04/21/2020 12:00:00 AM EST active Nebulizer/Tubing/ Mouthpiece - eCW1 ([facility]) Nebulizer - Nebulizer - 04/21/2020 12:00:00 AM EST active Nebulizer - eCW1 ([facility]) 2.5 mg 04/21/2020 12:00:00 AM EST tablet 30 TAKE ONE TABLET BY MOUTH ONCE DAILY FOR BLOOD PRESSURE OVER 140/90 TAKE ONE TABLET BY MOUTH ONCE DAILY FOR BLOOD PRESSURE OVER 140/90 SOLD: 04/21/2020 [facility] Nebulizer/Tubing/Mouthpiece - Nebulizer/Tubing/Mouthpiece - 04/21/2020 12:00:00 AM EST active Nebulizer/Tubing/ Mouthpiece - eCW1 ([facility]) Nebulizer/Tubing/Mouthpiece - Nebulizer/Tubing/Mouthpiece - 04/21/2020 12:00:00 AM EST active Nebulizer/Tubing/ Mouthpiece - eCW1 ([facility]) Nebulizer - Nebulizer - 04/21/2020 12:00:00 AM EST active eCW1 ([facility]) Albuterol 0.83 MG/ML Inhalant Solution Albuterol Sulfa te (2.5 MG/3ML) 0.083% Albuterol Sulfate (2.5 MG/3ML) 0.083% 04/21/2020 12:00:00 AM EST 3.0 {ml_as_needed} active Albuterol Sulfate (2.5 MG/3ML) 0.083% eCW1 ([facility]) Albuterol 0.83 MG/ML Inhalant Solution Albuterol Sulfa te (2.5 MG/3ML) 0.083% Albuterol Sulfate (2.5 MG/3ML) 0.083% 04/21/2020 12:00:00 AM EST 3.0 {ml_as_needed} active Albuterol Sulfate (2.5 MG/3ML) 0.083% eCW1 ([facility]) Albuterol 0.83 MG/ML Inhalant Solution Albuterol Sulfa te (2.5 MG/3ML) 0.083% Albuterol Sulfate (2.5 MG/3ML) 0.083% 04/21/2020 12:00:00 AM EST 3.0 {ml_as_needed} active Albuterol Sulfate (2.5 MG/3ML) 0.083% eCW1 ([facility]) Nebulizer - Nebulizer - 04/21/2020 12:00:00 AM EST active Nebulizer - eCW1 ([facility]) Albuterol 0.83 MG/ML Inhalant Solution Albuterol Sulfa te (2.5 MG/3ML) 0.083% Albuterol Sulfate (2.5 MG/3ML) 0.083% 04/21/2020 12:00:00 AM EST 3.0 {ml_as_needed} active Albuterol Sulfate (2.5 MG/3ML) 0.083% eCW1 ([facility]) Albuterol 0.83 MG/ML Inhalant Solution Albuterol Sulfa te (2.5 MG/3ML) 0.083% Albuterol Sulfate (2.5 MG/3ML) 0.083% 04/21/2020 12:00:00 AM EST 3.0 {ml_as_needed} active Albuterol Sulfate (2.5 MG/3ML) 0.083% W1 ([facility]) Nebulizer/Tubing/Mouthpiece - Nebulizer/Tubing/Mouthpiece - 04/21/2020 12:00:00 AM EST active Nebulizer/Tubing/ Mouthpiece - eCW1 ([facility]) Nebulizer - Nebulizer - 04/21/2020 12:00:00 AM EST active Nebulizer - eCW1 ([facility]) Nebulizer - Nebulizer - 04/21/2020 12:00:00 AM EST active Nebulizer - eCW1 ([facility]) Nebulizer/Tubing/Mouthpiece - Nebulizer/Tubing/Mouthpiece - 04/21/2020 12:00:00 AM EST active Nebulizer/Tubing/ Mouthpiece - eCW1 ([facility]) Albuterol 0.83 MG/ML Inhalant Solution Albuterol Sulfa te (2.5 MG/3ML) 0.083% Albuterol Sulfate (2.5 MG/3ML) 0.083% 04/21/2020 12:00:00 AM EST 3.0 {ml_as_needed} active Albuterol Sulfate (2.5 MG/3ML) 0.083% eCW1 ([facility]) Albuterol 0.83 MG/ML Inhalant Solution Albuterol Sulfa te (2.5 MG/3ML) 0.083% Albuterol Sulfate (2.5 MG/3ML) 0.083% 04/21/2020 12:00:00 AM EST 3.0 {ml_as_needed} active Albuterol Sulfate (2.5 MG/3ML) 0.083% eCW1 ([facility]) Albuterol 0.83 MG/ML Inhalant Solution Albuterol Sulfa te (2.5 MG/3ML) 0.083% Albuterol Sulfate (2.5 MG/3ML) 0.083% 04/21/2020 12:00:00 AM EST 3.0 {ml_as_needed} active Albuterol Sulfate (2.5 MG/3ML) 0.083% eCW1 ([facility]) Albuterol 0.83 MG/ML Inhalant Solution Albuterol Sulfa te (2.5 MG/3ML) 0.083% Albuterol Sulfate (2.5 MG/3ML) 0.083% 04/21/2020 12:00:00 AM EST 3.0 {ml_as_needed} active Albuterol Sulfate (2.5 MG/3ML) 0.083% eCW1 ([facility]) Nebulizer/Tubing/Mouthpiece - Nebulizer/Tubing/Mouthpiece - 04/21/2020 12:00:00 AM EST active Nebulizer/Tubing/ Mouthpiece - eCW1 ([facility]) Albuterol 0.83 MG/ML Inhalant Solution Albuterol Sulfa te (2.5 MG/3ML) 0.083% Albuterol Sulfate (2.5 MG/3ML) 0.083% 04/21/2020 12:00:00 AM EST 3.0 {ml_as_needed} active Albuterol Sulfate (2.5 MG/3ML) 0.083% eCW1 ([facility]) Nebulizer - Nebulizer - 04/21/2020 12:00:00 AM EST active Nebulizer - eCW1 ([facility]) Nebulizer - Nebulizer - 04/21/2020 12:00:00 AM EST active Nebulizer - eCW1 ([facility]) Nebulizer/Tubing/Mouthpiece - Nebulizer/Tubing/Mouthpiece - 04/21/2020 12:00:00 AM EST active Nebulizer/Tubing/ Mouthpiece - eCW1 ([facility]) Albuterol 0.83 MG/ML Inhalant Solution Albuterol Sulfa te (2.5 MG/3ML) 0.083% Albuterol Sulfate (2.5 MG/3ML) 0.083% 04/21/2020 12:00:00 AM EST 3.0 {ml_as_needed} active Albuterol Sulfate (2.5 MG/3ML) 0.083% eCW1 ([facility]) Nebulizer - Nebulizer - 04/21/2020 12:00:00 AM EST active Nebulizer - eCW1 ([facility]) Albuterol 0.83 MG/ML Inhalant Solution Albuterol Sulfa te (2.5 MG/3ML) 0.083% Albuterol Sulfate (2.5 MG/3ML) 0.083% 04/21/2020 12:00:00 AM EST 3.0 {ml_as_needed} active Albuterol Sulfate (2.5 MG/3ML) 0.083% eCW1 ([facility]) Nebulizer/Tubing/Mouthpiece - Nebulizer/Tubing/Mouthpiece - 04/21/2020 12:00:00 AM EST active Nebulizer/Tubing/ Mouthpiece - eCW1 ([facility]) Nebulizer/Tubing/Mouthpiece - Nebulizer/Tubing/Mouthpiece - 04/21/2020 12:00:00 AM EST active Nebulizer/Tubing/ Mouthpiece - eCW1 ([facility]) INHALER, ASSIST DEVICES 04/17/2020 12:00:00 AM [...] Natan-Vu 04/17/2020 12:00:00 AM EST completed MEDENT ([facility]) 60 ACTUAT Albuterol 0.09 MG/ACTUAT Metered Dose Inhaler Albu terol Sulfate HFA 04/17/2020 12:00:00 AM EST RESPIRATORY completed MEDENT ([facility]) 100 mg 04/09/2020 12:00:00 AM EST [...] a ctive Duloxetine HCl 30 MG eCW1 ([facility]) duloxetine 30 MG Delayed Release Oral Capsule Duloxeti ne HCl 30 MG Duloxetine HCl 30 MG 03/25/2020 12:00:00 AM EST 1.0 {capsule} a ctive Duloxetine HCl 30 MG eCW1 ([facility]) duloxetine 30 MG Delayed Release Oral Capsule Duloxeti ne HCl 30 MG Duloxetine HCl 30 MG 03/25/2020 12:00:00 AM EST 1.0 {capsule} a ctive Duloxetine HCl 30 MG eCW1 ([facility]) Nortriptyline 50 MG Oral Capsule NORTRIPTYLINE HCL 03/18/2020 12 :00:00 AM EST capsule 30 TAKE ONE CAPSULE BY MOUTH AT BED TIME TAKE ONE CAPSULE BY MOUTH AT BEDTIME SOLD: 03/19/2020 [facility] carvedilol 12.5 MG Oral Tablet Carvedilol 12.5 MG Carvedilol 12.5 MG 03/17/2020 12:00:00 AM EST active Carvedil ol 12.5 MG eCW1 ([facility]) carvedilol 6.25 MG Oral Tablet Carvedilol 6.25 MG Carvedilol 6.25 MG 03/17/2020 12:00:00 AM EST 1.0 {tablet_with_food} active Carvedilol 6.25 MG eCW1 ([facility]) carvedilol 12.5 MG Oral Tablet Carvedilol 12.5 MG Carvedilol 12.5 MG 03/17/2020 12:00:00 AM EST active Carvedil ol 12.5 MG eCW1 ([facility]) carvedilol 12.5 MG Oral Tablet Carvedilol 12.5 MG Carvedilol 12.5 MG 03/17/2020 12:00:00 AM EST 1.0 {tablet_with_food} active Carvedilol 12.5 MG eCW1 ([facility]) carvedilol 12.5 MG Oral Tablet Carvedilol 12.5 MG Carvedilol 12.5 MG 03/17/2020 12:00:00 AM EST 1.0 {tablet_with_food} active Carvedilol 12.5 MG eCW1 ([facility]) carvedilol 12.5 MG Oral Tablet Carvedilol 12.5 MG Carvedilol 12.5 MG 03/17/2020 12:00:00 AM EST 1.0 {tablet_with_food} active Carvedilol 12.5 MG eCW1 ([facility]) carvedilol 6.25 MG Oral Tablet Carvedilol 6.25 MG Carvedilol 6.25 MG 03/17/2020 12:00:00 AM EST 1.0 {tablet_with_food} active Carvedilol 6.25 MG eCW1 ([facility]) carvedilol 12.5 MG Oral Tablet Carvedilol 12.5 MG Carvedilol 12.5 MG 03/17/2020 12:00:00 AM EST active Carvedil ol 12.5 MG eCW1 ([facility]) carvedilol 12.5 MG Oral Tablet Carvedilol 12.5 MG Carvedilol 12.5 MG 03/17/2020 12:00:00 AM EST active Carvedil ol 12.5 MG eCW1 ([facility]) carvedilol 12.5 MG Oral Tablet Carvedilol 12.5 MG Carvedilol 12.5 MG 03/17/2020 12:00:00 AM EST active Carvedil ol 12.5 MG eCW1 ([facility]) carvedilol 6.25 MG Oral Tablet Carvedilol 6.25 MG Carvedilol 6.25 MG 03/17/2020 12:00:00 AM EST 1.0 {tablet_with_food} active Carvedilol 6.25 MG eCW1 ([facility]) carvedilol 12.5 MG Oral Tablet Carvedilol 12.5 MG Carvedilol 12.5 MG 03/17/2020 12:00:00 AM EST active Carvedil ol 12.5 MG eCW1 ([facility]) carvedilol 12.5 MG Oral Tablet Carvedilol 12.5 MG Carvedilol 12.5 MG 03/17/2020 12:00:00 AM EST active Carvedil ol 12.5 MG eCW1 ([facility]) carvedilol 6.25 MG Oral Tablet Carvedilol 6.25 MG Carvedilol 6.25 MG 03/17/2020 12:00:00 AM EST 1.0 {tablet_with_food} active Carvedilol 6.25 MG eCW1 ([facility]) carvedilol 12.5 MG Oral Tablet Carvedilol 12.5 MG Carvedilol 12.5 MG 03/17/2020 12:00:00 AM EST active Carvedil ol 12.5 MG eCW1 ([facility]) carvedilol 6.25 MG Oral Tablet Carvedilol 6.25 MG Carvedilol 6.25 MG 03/17/2020 12:00:00 AM EST 1.0 {tablet_with_food} active Carvedilol 6.25 MG eCW1 ([facility]) carvedilol 6.25 MG Oral Tablet Carvedilol 6.25 MG Carvedilol 6.25 MG 03/17/2020 12:00:00 AM EST 1.0 {tablet_with_food} active Carvedilol 6.25 MG eCW1 ([facility]) carvedilol 12.5 MG Oral Tablet Carvedilol 12.5 MG Carvedilol 12.5 MG 03/17/2020 12:00:00 AM EST 1.0 {tablet_with_food} active Carvedilol 12.5 MG eCW1 ([facility]) carvedilol 12.5 MG Oral Tablet Carvedilol 12.5 MG Carvedilol 12.5 MG 03/17/2020 12:00:00 AM EST active Carvedil ol 12.5 MG eCW1 ([facility]) carvedilol 6.25 MG Oral Tablet Carvedilol 6.25 MG Carvedilol 6.25 MG 03/17/2020 12:00:00 AM EST 1.0 {tablet_with_food} active Carvedilol 6.25 MG eCW1 ([facility]) carvedilol 12.5 MG Oral Tablet Carvedilol 12.5 MG Carvedilol 12.5 MG 03/17/2020 12:00:00 AM EST active Carvedil ol 12.5 MG eCW1 ([facility]) carvedilol 12.5 MG Oral Tablet Carvedilol 12.5 MG Carvedilol 12.5 MG 03/17/2020 12:00:00 AM EST active Carvedil ol 12.5 MG eCW1 ([facility]) carvedilol 12.5 MG Oral Tablet Carvedilol 12.5 MG Carvedilol 12.5 MG 03/17/2020 12:00:00 AM EST 1.0 {tablet_with_food} active Carvedilol 12.5 MG eCW1 ([facility]) carvedilol 6.25 MG Oral Tablet Carvedilol 6.25 MG Carvedilol 6.25 MG 03/17/2020 12:00:00 AM EST 1.0 {tablet_with_food} active Carvedilol 6.25 MG eCW1 ([facility]) carvedilol 6.25 MG Oral Tablet Carvedilol 6.25 MG Carvedilol 6.25 MG 03/17/2020 12:00:00 AM EST 1.0 {tablet_with_food} active Carvedilol 6.25 MG eCW1 ([facility]) carvedilol 12.5 MG Oral Tablet Carvedilol 12.5 MG Carvedilol 12.5 MG 03/17/2020 12:00:00 AM EST active Carvedil ol 12.5 MG eCW1 ([facility]) carvedilol 12.5 MG Oral Tablet Carvedilol 12.5 MG Carvedilol 12.5 MG 03/17/2020 12:00:00 AM EST active Carvedil ol 12.5 MG eCW1 ([facility]) carvedilol 12.5 MG Oral Tablet Carvedilol 12.5 MG Carvedilol 12.5 MG 03/17/2020 12:00:00 AM EST 1.0 {tablet_with_food} active Carvedilol 12.5 MG eCW1 ([facility]) 1 mg 02/29/2020 12:00:00 AM EDT [...] 1.0 {patch_to_skin} active Butrans 5 MCG/HR eCW1 ([facility]) 168 HR Buprenorphine 0.005 MG/HR Transdermal Patch [Bu Trans] Butrans 5 MCG/HR Butrans 5 MCG/HR 02/28/2020 12:00:00 AM EDT 1.0 {patch_to_skin} active Butrans 5 MCG/HR eCW1 ([facility]) 168 HR Buprenorphine 0.005 MG/HR Transdermal Patch [Bu Trans] Butrans 5 MCG/HR Butrans 5 MCG/HR 02/28/2020 12:00:00 AM EDT 1.0 {patch_to_skin} active Butrans 5 MCG/HR eCW1 ([facility]) 168 HR Buprenorphine 0.005 MG/HR Transdermal Patch [Bu Trans] Butrans 5 MCG/HR Butrans 5 MCG/HR 02/28/2020 12:00:00 AM EDT 1.0 {patch_to_skin} active Butrans 5 MCG/HR eCW1 ([facility]) 10 mg 02/26/2020 12:00:00 AM EDT tablet [...] type / Coverage type Policy ID Covered libertarian ID Covered libertarian's relationship to kelley Policy Kelley Plan Information [place] [employer] [place] [id number] Self [id number] [place] [id number] Self [id number] [facility] MEDICARE COMPLETE [id number] Self [id number] MEDICARE COMPLETE [id number] SP [id number] MEDICARE COMPLETE [id number] SP [id number] [facility] Commercial [id number] Self [id number] MEDICARE COMPLETE [id number] SP [id number] MEDICARE COMPLETE [id number] SP [id number] MEDICARE COMPLETE [id number] SP [id number] [employer] [place] [id number] [place]are Part B [id number] [facility] [id number]-[id number]-[id number] ANSMedicare Part B [id number]-5n4z-65uc-w8vj-[id number] ANSI-Medicare Part B [id number] [id number] ANSI-Medicare Part B [id number]-[id number] ANSI-Medicare Part B [id number]-[id number] ANSI-Medicare Part B [id number]-[id number] 7hc5cqmp-1v4p-44q9-td1f-[id number] ANSI-Medicare Part B [id number]-[id number]-[id number] ANSI-Medicare Part B [id number] [facility]/Medicare Solu Commercial [id number] Self [id number] ANSI-Medicare Part B [id number]-vy6w-58wt-1gq5-gqd70h30bej5 ANSI-Medicare Part B [id number]-[id number] od0jo2rx-761u-2w6d-6e28-848s2du9811p ANSI-Medicare Part B [id number]-52zc-[id number]-07pk-[id number] ANSI-Medicare Part B [id number]-[id number] cd7n7s66-4900-9p71-5p3e-[id number] ANSI-Medicare Part B [id number]-[id number] k0902mct-6hw2-6wgz-v06m-54b2we945wc4 ANSI-Medicare Part B [id number]-[id number] [id number]-8xue-[id number] ANSI-Medicare Part B [id number] 08vm69v2-[id number] ANSI-Medicare Part B [id number]-u775-[id number] 5486e017-w3r3-45f3-o677-[id number] ANSI-Medicare Part B [id number]-8m91-x300-y3934cxa3424 e8g7a3j5-3e5c-4j67-v641-a0752ysu4290 ANSI-Medicare Part B 28tt78o4-7701-18t8-x97t-s2eg6576kwln 09kx83u2-2284-05j3-i75p-r4hn2941txug ANSI-Medicare Part B [id number]-830h-412t-[id number] 12mz42sr-m6bg-966q-024y-9924793455l8 ANSI-Medicare Part B [id number]-38x8-6o1a5808e6b9 r7c1lv44-8579-903w-20l0-8y6k2369e7i9 [facility]/Medicare Solu Commercial [id number] Self [id number] ANSI-Medicare Part B [id number]-so0e-47j8-t1ks-b939333w6a1u o3u4o00y-qc2b-73y7-w4uz-y762328h1z2h ANSI-Medicare Part B [id number]-vbr7-3s247wz91967 b1xn0g00-3096-0nv3-wfi7-6m884vs40334 ANSI-Medicare Part B [id number]-5531-3w7u-[id number] 5v1cw251-i1kp-8486-3k3f-[id number] ANSI-Medicare Part B [id number]-r97i-6405-78pd-6n3207l1nk53 c290kb32-i73b-2202-19qk-2l8757a8ho79 [facility]/Medicare Commercial [id number] Self ANSI-Medicare Part B [id number]-j5jd-3269-f6o7-oj5i6k703508 e1ug22ms-o3zp-7378-t9p4-tz0q4p142477 ANSI-Medicare Part B [id number]-9b60-[id number] 99u5e8q5-4xx0-771a-0l84-ekis28b34408 ANSI-Medicare Part B [id number]-md78-[id number] 77d8ir68-4247-92kg-ik38-q09l7016uio3 ANSI-Medicare Part B [id number]-z855-u70t0281x4c9 nw82l161-1109-5408-d383-k38p3328j5v7 ANSI-Medicare Part B [id number]-mfr3-u266891629w7 401ma902-1434-3j5p-jfe6-r684310980f8 ANSI-Medicare Part B [id number]-j868-5x19-9t9k-[id number] z4cy96iu-e068-7j39-8e9v-3q75614erx5q ANSI-Medicare Part B [id number]-6o51-0r95-sji8-i460925sw974 15u7x38i-6o64-6f14-lmk3-p523540gb241 ANSI-Medicare Part B [id number]-sv02c922ym07 e977gr88-72n6-5328-85n1-vs07t457zg50 [facility]/Medicare Solu Commercial [id number] Self [id number] ANSI-Medicare Part B [id number]-8zm0-36si-1659-5o49h164vg9b ta57y16n-5po1-17fl-5778-9k30i533yl8j [facility]/Medicare Solu Commercial [id number] Self [id number] ANSI-Medicare Part B [id number]-5945-1951-7872-[id number]-9381-1272-9329-[id number] ANSI-Medicare Part B [id number] [id number]-287x-67g0-4gsd-v1mr0t1m6m56 ANSI-Medicare Part B [id number]-1706-kl42-fk4393g7x826 y13pj533-3m1l-7363-qh17-[id number] ANSI-Medicare Part B [id number]-53j3-[id number]-26d0-[id number] ANSI-Medicare Part B [id number]-[id number]-j84z-79s9725qjldt [id number]-h53r-67v1790psxlz ANSI-Medicare Part B [id number]-[id number] 57bei5xf-6g1w-1k41-37n5-2gj0017p7u45 ANSI-Medicare Part B [id number]-arfs-49013a9n2g90 [id number]-lzwt-70543v8w9p95 ANSI-Medicare Part B [id number]-[id number]-h82z-92ih1i7rg18v ANSI-Medicare Part B [id number]-kk47-88ml-v7z0-[id number] [id number]-zz21-77hw-h1h7-aknt8z700g2m [facility] [id number] Self [id number] [facility] Commercial [id number] Self MEDICARE [id number] SP [id number] A Medicare P UNAVAILABLE S UNAVAILA BLE Self Pay S [id number] S [id number] [facility] O [id number] S [id number] [facility] MEDICARE-O/P [id number] 18 [id number] MEDICARE COMPLETE [id number] SP [id number] A MEDICARE COMPLETE [id number] SP [id number] MEDICARE [id number] SP [id number] MEDICARE COMPLETE-UHC O [id number] S [id number] MEDICARE COMPLETE-UH O [id number] S [id number] ANSI-Medicare Part B [id number] ANSI-Medicare Part B [id number] [facility]-Medicare Part B [id number] [id number]-65cb-j840-890jjn7z8hx1 Problems, Conditions, and Diagnoses Code Display Name Description Problem Type Effective Dates Data Source(s) Rt facial droop, RLE weakness Rt facial droop, RLE wea kness Diagnosis 06/22/2020 03:26:00 PM [facility] G44.221 Chronic tension-type headache Chronic tension-type hea dache Problem 12/18/2020 12:00:00 AM EDT MEDENT ([facility], ) G43.009 Migraine without aura, not refractory Mi graine without aura, not refractory Problem 12/18/2020 12:00:00 AM EDT MEDENT ([facility], ) G89.29 [id number] Other chronic pain Problem 11/11/2020 12:00: 00 AM EDT eCW1 ([facility]) F41.9 [id number] Anxiety Problem 08/19/2020 12:00:00 AM ED T eCW1 ([facility]) N94.89 [id number] Burning sensation of vulva Problem 12:00:00 AM EDT eCW1 ([facility]) R20.0 Skin sensation disturbance Skin sensation disturbance Problem 07/18/2020 12:00:00 AM EST MEDENT ([facility], ) R53.1 Malaise and fatigue Malaise and fatigue Problem 0 07/18/2020 12:00:00 AM EST MEDENT ([facility], ) Z86.73 History of cerebrovascular accident with out residual deficits History of cerebrovascular accident without residual deficits Problem 09/2020 12:00:00 AM EST [facility] ([facility], ) 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 Problem 07/18/2020 12:00:00 AM EST MEDENT ([facility], ) M54.2 Neck pain Neck pain Problem 07/18/2020 12:00:00 AM ES T MEDENT ([facility], ) 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 Problem 07/18/2020 12:00:00 AM EST MEDENT ([facility], ) M54.5 Low back pain Low back pain Problem 07/18/2020 12:00:00 AM EST [facility]ENT ([facility], ) M43.06 Spondylolysis Spondylolysis Problem 07/18/2020 12:00:00 AM EST [facility] ([facility] ) Z12.2 [id number] Encounter for screening for lung cancer P john 06/30/2020 12:00:00 AM EST eCW1 ([facility]) G89.4 [id number] Chronic pain syndrome Problem 05/19/2020 12: 00:00 AM EST eCW1 ([facility]) N28.1 [id number] Renal cyst Problem 03/17/2020 12:00:00 AM ES T eCW1 ([facility]) Surgeries/Procedures Procedure Description Date Indications Data Source(s) OFFICE OUTPATIENT VISIT 15 MINUTES 03/13/2021 12:00:00 AM EDT [facility] ([facility], ) PHYSICIAN TELEPHONE EVALUATION 11-20 MIN 03/05/2021 12 :00:00 AM EDT [facility] ([facility], ) Magnetic Resonance Angiogtaphy Head W/O Contrast Material(S) 12/23/2020 12:00:00 AM EDT [facility] ([facility] ) Magnetic Resonance Angiogtaphy Head W/O Contrast Material(S) 12/23/2020 12:00:00 AM EDT [facility] ([facility] ) MRI BRAIN BRAIN STEM W/O CONTRAST MATERIAL 12/23/2020 12:00:00 AM EDT [facility] ([facility] ) MRI BRAIN BRAIN STEM W/O CONTRAST MATERIAL 12/23/2020 12:00:00 AM EDT [facility] ([facility] ) PHYSICIAN TELEPHONE EVALUATION 11-20 MIN 12/18/2020 12 :00:00 AM EDT [facility] ([facility]) X-Ray Spine Lumbosacral Complete Inc Bending Views Min Of 6 11/18/2020 12:00:00 AM EDT [facility] ([facility]) OFFICE OUTPATIENT VISIT 25 MINUTES 11/18/2020 12:00:00 AM EDT [facility] ([facility]) ARTHROCENTESIS ASPIR&/INJECTION MAJOR JT/BURSA 021 12:00:00 AM EDT [facility] ([facility]) OFFICE OUTPATIENT VISIT 25 MINUTES 10/23/2020 12:00:00 AM EDT [facility] ([facility]) OFFICE OUTPATIENT VISIT 15 MINUTES 10/22/2020 12:00:00 AM EDT [facility] ([facility], ) OFFICE OUTPATIENT NEW 60 MINUTES 07/18/2020 12:00:00 A M EST MED[facility] ([facility], ) PRESSURIZED/NONPRESSURIZED INHALATION TREATMENT 2019 12:00:00 AM EST MED[facility] ([facility]) Results ID Date Data Source [id number] 04/18/2021 01:19:[address] [facility] Name Value Range Interpretation Code Description Data Yue rce(s) Supporting Document(s) SARS coronavirus 2 RNA [Presence] in Res piratory specimen by BARBARA with probe detection NEGATIVE - SARS-CoV-2 (COVID19) [facility] This lab was ordered by [facility] a nd reported by [facility]. ID Date Data Source [facility] MRI ABDOMEN WITHOUT CONTRAST 08/21/2020 12:00:00 AM EDT eCW1 ([facility]) Name Value Range Interpretation Code Description Data Yue rce(s) Supporting Document(s) [facility] MRI ABDOMEN WITHOUT CONTRA ST eCW1 ([facility]) ID Date Data Source CBC with Differential 08/19/2020 12:00:00 AM EDT eCW1 ([facility]) Name Value Range Interpretation Code Description Data Yue rce(s) Supporting Document(s) 8.4 4.0-10.0 WHITE BLOOD COUNT eCW1 ([facility]) 51.7 36.0-47.0 HEMATOCRIT eCW1 ([facility]) 16.7 12.0-15.5 HEMOGLOBIN eCW1 ([facility]) 5.29 4.00-5.40 RED BLOOD COUNT eCW1 ([facility]) 31.6 27.0-33.0 MEAN CORPUSCULAR HEMOGLOB IN eCW1 ([facility]) 32.3 32.0-36.5 MEAN CORPUSCULAR HGB CONC eCW1 ([facility]) 97.7 80.0-96.0 MEAN CORPUSCULAR VOLUME e CW1 ([facility]) 270 150-450 PLATELET COUNT, AUTOMATED eCW1 ([facility]) 43.8 36.0-66.0 NEUTROPHILS % eCW1 ([facility]) 13.8 11.5-14.5 RED CELL DISTRIBUTION WID TH eCW1 ([facility]) 39.9 24.0-44.0 LYMPH % eCW1 ([facility]) 4.2 0.0-3.0 EOS % eCW1 ([facility]) 11.3 2.0-8.0 MONO % eCW1 ([facility]) 3.7 1.5-8.5 NEUTROPHILS # eCW1 ([facility]) 3.4 1.5-5.0 LYMPH # eCW1 ([facility]) 0.6 0.0-1.0 BASO % eCW1 ([facility]) 0.1 0.0-0.2 BASO # eCW1 ([facility]) 0.4 0.0-0.5 EOS # eCW1 ([facility]) 1.0 0.0-0.8 MONO # eCW1 ([facility]) ID Date Data Source [id number] TUMOR MARKER,CARBOHYDRA 08/19/2020 12:00:00 AM EDT eC W1 ([facility]) Name Value Range Interpretation Code Description Data Yue rce(s) Supporting Document(s) 16.4 <35.0 [id number] TUMOR MARKER,CARBO HYDRA eCW1 ([facility]) ID Date Data Source URINE CULTURE 08/08/2020 12:00:00 AM EDT eCW1 ([facility]) Name Value Range Interpretation Code Description Data Yue rce(s) Supporting Document(s) Laboratory studies (set) URINE CULTU RE eCW1 ([facility]) ID Date Data Source [id number] 07/14/2020 11:21:00 AM EST [facility] ([facility]) Name Value Range Interpretation Code Description Data Yue rce(s) Supporting Document(s) Bacteria identified in Urine by Culture Laboratory test result MED[facility] ([facility]) ID Date Data Source [id number] 07/14/2020 12:00:00 AM EST [facility] Name Value Range Interpretation Code Description Data Yue rce(s) Supporting Document(s) SARS-CoV2 Rapid Antigen Negative [facility] This lab was reported by [facility] re. ID Date Data Source [id number] 06/22/2020 01:49:00 PM EST [facility] Name Value Range Interpretation Code Description Data Yue rce(s) Supporting Document(s) SARS coronavirus 2 RNA [Presence] in Res piratory specimen by BARBARA with probe detection NEGATIVE [place]SDOH This lab was ordered by [facility] a nd reported by [facility]. ID Date Data Source [id number] 06/04/2020 09:27:00 AM EST MEDENT ([facility]) Name Value Range Interpretation Code Description Data Yue rce(s) Supporting Document(s) WBC, Urine Auto 1 /HPF 0-3 MEDENT ([facility]) RBC, Urine Auto 1 /HPF 0-3 MEDENT ([facility]) Bacteria, Urine Auto Laboratory test result MEDENT ([facility]) Squamous Epithelial Cell Ur AU 0 /HPF 0-6 MEDENT ([facility]) Mucus, Urine Laboratory test result MEDE NT ([facility]) Hyaline Cast, Urine Auto 0 /LPF 0-1 MEDEN T ([facility]) ID Date Data Source [id number] 06/04/2020 09:27:00 AM EST MEDENT ([facility]) Name Value Range Interpretation Code Description Data Yue rce(s) Supporting Document(s) Bacteria identified in Urine by Culture Laboratory test result MEDENT ([facility]) FULL REPORT IN LAB NOTES (eCW and Medent ). NO GROWTH CLINICAL SIGNIFICANCE 2 OR MORE ORGANISMS ID Date Data Source [id number] 06/04/2020 12:00:00 AM EST [facility] Name Value Range Interpretation Code Description Data Yue rce(s) Supporting Document(s) SARS coronavirus 2 Ag Negative [place]SDOH This lab was ordered by [facility] and reported by [facility]. ID Date Data Source UA URINALYSIS 05/19/2020 12:00:00 AM EST eCW1 ([facility]) Name Value Range Interpretation Code Description Data Yue rce(s) Supporting Document(s) Laboratory studies (set) UA URINALYS IS eCW1 ([facility]) ID Date Data Source [id number] 05/12/2020 08:16:00 PM EST [facility] Name Value Range Interpretation Code Description Data Yue rce(s) Supporting Document(s) SARS coronavirus 2 RNA [place]OH This lab was ordered by [facility] and reported by [facility]. ID Date Data Source [id number] 05/01/2020 02:32:00 PM EST [facility] Name Value Range Interpretation Code Description Data Yue rce(s) Supporting Document(s) SARS coronavirus 2 RNA [Presence] in Res piratory specimen by BARBARA with probe detection [place]SDOH This lab was ordered by [facility] a nd reported by [facility]. ID Date Data Source [id number] 04/17/2020 11:36:00 AM EST MEDENT ([facility]) Name Value Range Interpretation Code Description Data Yue rce(s) Supporting Document(s) Blood Urea Nitrogen 11 mg/dL 7-18 MEDENT ([facility]) Creatinine For GFR 0.85 mg/dL 0.55-1.30 MEDENT ([facility]) Glucose, Fasting 85 mg/dL 70-100 MEDENT ([facility]) Glomerular Filtration Rate Laboratory test result [facility] ([facility]) <content>Units are mL/min/1.73 m2</content>
<content></content>
<content>Chronic Kidney Disease Staging per NKF:</content>
<content></content>
<content>Stage I & II GFR >=60 Normal to Mildly Decreased</content>
<content>Stage III GFR 30- 59 Moderately Decreased</content>
<content>Stage IV GFR 15-29 Severely Decreased</content>
<content>Stage V GFR <15 Very Little GFR Left</content>
<content>ESRD GFR <15 on OSTOMY RN</content>
<content></content> Sodium Level 141 meq/L 136-145 MEDENT ([facility], [facility]) Chloride Level 108 meq/L 98-107 MEDENT ([facility]) Potassium Serum 3.9 meq/L 3.5-5.1 MEDENT ([facility], [facility]) Carbon Dioxide Level 27 meq/L 21-32 MEDENT ([facility], [facility]) Calcium Level 9.7 mg/dL 8.5-10.1 MEDENT ([facility], [facility]) Ast/Sgot 9 U/L 7-37 MEDENT ([facility]) Anion Gap 6 meq/L 8-16 MEDENT ([facility]) Alt/SGPT 17 U/L 12-78 MEDENT ([facility], [facility]) Alkaline Phosphatase 88 U/L 45-117 MEDENT ([facility], [facility]) Bilirubin,Total 0.4 mg/dL 0.2-1.0 MEDENT ([facility], [facility]) Albumin 3.7 GM/DL 3.2-5.2 MEDENT ([facility]) Total Protein 6.7 GM/DL 6.4-8.2 MEDENT ([facility], [facility]) Albumin/Globulin Ratio 1.2 1.2-2.2 MEDENT ([facility], [facility]) ID Date Data Source [id number] 04/17/2020 11:36:00 AM EST MEDENT ([facility]) Name Value Range Interpretation Code Description Data Yue rce(s) Supporting Document(s) White Blood Count 7.6 10 4.0-10.0 MEDENT [facility] Hemoglobin 14.9 g/dL 12.0-15.5 MEDENT ([facility] Red Blood Count 4.77 10 4.00-5.40 MEDENT ([facility]) Hematocrit 46.3 % 36.0-47.0 MEDENT ([facility]) Mean Corpuscular Hemoglobin 31.2 pg 27.0-33.0 MEDENT ([facility]) Mean Corpuscular Volume 97.1 fl 80.0-96.0 M EDENT ([facility]) Mean Corpuscular HGB Conc 32.2 g/dL 32.0-36.5 MEDENT ([facility]) Platelet Count, Automated 255 10 150-450 MEDENT ([facility] Red Cell Distribution Width 14.8 % 11.5-14.5 MEDENT ([facility]) Lymph % 40.2 % 24.0-44.0 MEDENT ([facility]) Sebastian % 11.6 % 0.0-5.0 MEDENT ([facility]) Neutrophils % 42.6 % 36.0-66.0 MEDENT ([facility]) Baso % 0.7 % 0.0-1.0 MEDENT ([facility]) Eos % 4.6 % 0.0-3.0 MEDENT ([facility]) Neutrophils # 3.3 10 1.5-8.5 MEDENT ([facility]) Nucleated Red Blood Cell % 0.0 % 0-0 MED ENT ([facility]) Immature Granulocyte % 0.3 % 0-3.0 MEDENT ([facility]) Eos # 0.4 10 0.0-0.5 MEDENT ([facility]) Lymph # 3.1 10 1.5-5.0 MEDENT ([facility]) Sebastian # 0.9 10 0.0-0.8 MEDENT ([facility]) Baso # 0.1 10 0.0-0.2 MEDENT ([facility], [facility]) ID Date Data Source DRUG EVAL COMPREHENSIVE 03/22/2020 04:46:20 AM EST eCW1 ([facility]) Name Value Range Interpretation Code Description Data Yue rce(s) Supporting Document(s) DRUG EVAL COMPREHENSIVE eCW1 ( [facility]) ID Date Data Source ERYTHROCYTE SEDIMENTATION RATE 03/18/2020 05:27:57 AM EST eC W1 ([facility]) Name Value Range Interpretation Code Description Data Yue rce(s) Supporting Document(s) 1 ERYTHROCYTE SEDIMENTATION RATE eCW1 ([facility]) ID Date Data Source NT-PRO BNP 03/18/2020 04:57:51 AM EST eCW1 ([facility]) Name Value Range Interpretation Code Description Data Yue rce(s) Supporting Document(s) 112 NT-PRO BNP eCW1 ([facility]) ID Date Data Source C REACTIVE PROTEIN QUANTITATIV (At [facility]) 03/18/2020 04:57 :44 AM EST eCW1 ([facility]) Name Value Range Interpretation Code Description Data Yue rce(s) Supporting Document(s) < 0.30 C REACTIVE PROTEIN QUANTI TATIV eCW1 ([facility]) ID Date Data Source [id number] 03/03/2020 02:03:00 PM EDT MEDENT ([facility]) Name Value Range Interpretation Code Description Data Yue rce(s) Supporting Document(s) Laboratory test finding (navigational concept) Laboratory test result MEDENT ([facility]) Procedure Social History Code Duration Value Status Description Data Source(s ) Smoking 03/13/2021 12:00:00 AM EDT Patient is a former smoker completed Patient is a former smoker MEDENT ([facility], ) Smoking 03/01/2021 12:00:00 AM EDT Former Smoker completed Former Smoker eCW1 ([facility]) Smoking 03/01/2021 12:00:00 AM EDT Former Smoker completed Former Smoker eCW1 ([facility]) Smoking 03/01/2021 12:00:00 AM EDT Former Smoker completed Former Smoker eCW1 ([facility]) Smoking 03/01/2021 12:00:00 AM EDT Former Smoker completed Former Smoker eCW1 ([facility]) Smoking 03/01/2021 12:00:00 AM EDT Former Smoker completed Former Smoker eCW1 ([facility]) Smoking 03/01/2021 12:00:00 AM EDT Former Smoker completed Former Smoker eCW1 ([facility]) Smoking 03/01/2021 12:00:00 AM EDT Former Smoker completed Former Smoker eCW1 ([facility]) Smoking 03/01/2021 12:00:00 AM EDT Former Smoker completed Former Smoker eCW1 ([facility]) Smoking 03/01/2021 12:00:00 AM EDT Former Smoker completed Former Smoker eCW1 ([facility]) Smoking 03/01/2021 12:00:00 AM EDT Former Smoker completed Former Smoker eCW1 ([facility]) Smoking 03/01/2021 12:00:00 AM EDT Former Smoker completed Former Smoker eCW1 ([facility]) Smoking 03/01/2021 12:00:00 AM EDT Former Smoker completed Former Smoker eCW1 ([facility]) Smoking 03/01/2021 12:00:00 AM EDT Former Smoker completed Former Smoker eCW1 ([facility]) Smoking 02/19/2021 12:00:00 AM EDT Former Smoker completed Former Smoker eCW1 ([facility]) Smoking 02/19/2021 12:00:00 AM EDT Former Smoker completed Former Smoker eCW1 ([facility]) Smoking 02/19/2021 12:00:00 AM EDT Former Smoker completed Former Smoker eCW1 ([facility]) Smoking 02/19/2021 12:00:00 AM EDT Former Smoker completed Former Smoker eCW1 ([facility]) Smoking 02/06/2021 12:00:00 AM EDT Former Smoker completed Former Smoker eCW1 ([facility]) Smoking 02/06/2021 12:00:00 AM EDT Former Smoker completed Former Smoker eCW1 ([facility]) Smoking 11/11/2020 12:00:00 AM EDT Former Smoker completed Former Smoker eCW1 ([facility]) Smoking 11/11/2020 12:00:00 AM EDT Former Smoker completed Former Smoker eCW1 ([facility]) Smoking 11/11/2020 12:00:00 AM EDT Former Smoker completed Former Smoker eCW1 ([facility]) Smoking 11/11/2020 12:00:00 AM EDT Former Smoker completed Former Smoker eCW1 ([facility]) Smoking 11/11/2020 12:00:00 AM EDT Former Smoker completed Former Smoker eCW1 ([facility]) Smoking 11/11/2020 12:00:00 AM EDT Former Smoker completed Former Smoker eCW1 ([facility]) Smoking 11/11/2020 12:00:00 AM EDT Former Smoker completed Former Smoker eCW1 ([facility]) Smoking 11/11/2020 12:00:00 AM EDT Former Smoker completed Former Smoker eCW1 ([facility]) Smoking 11/11/2020 12:00:00 AM EDT Former Smoker completed Former Smoker eCW1 ([facility]) Smoking 11/11/2020 12:00:00 AM EDT Former Smoker completed Former Smoker eCW1 ([facility]) Smoking 10/28/2020 12:00:00 AM EDT Former Smoker completed Former Smoker eCW1 ([facility]) Smoking 10/28/2020 12:00:00 AM EDT Former Smoker completed Former Smoker eCW1 ([facility]) Smoking 10/28/2020 12:00:00 AM EDT Former Smoker completed Former Smoker eCW1 ([facility]) Smoking 10/28/2020 12:00:00 AM EDT Former Smoker completed Former Smoker eCW1 ([facility]) Smoking 10/28/2020 12:00:00 AM EDT Former Smoker completed Former Smoker eCW1 ([facility]) Smoking 08/19/2020 12:00:00 AM EDT Former Smoker completed Former Smoker eCW1 ([facility]) Smoking 08/19/2020 12:00:00 AM EDT Former Smoker completed Former Smoker eCW1 ([facility]) Smoking 08/19/2020 12:00:00 AM EDT Former Smoker completed Former Smoker eCW1 ([facility]) Smoking 08/19/2020 12:00:00 AM EDT Former Smoker completed Former Smoker eCW1 ([facility]) Smoking 08/19/2020 12:00:00 AM EDT Former Smoker completed Former Smoker eCW1 ([facility]) Smoking 08/19/2020 12:00:00 AM EDT Former Smoker completed Former Smoker eCW1 ([facility]) Smoking 08/19/2020 12:00:00 AM EDT Former Smoker completed Former Smoker eCW1 ([facility]) Smoking 08/19/2020 12:00:00 AM EDT Former Smoker completed Former Smoker eCW1 ([facility]) Smoking 08/14/2020 12:00:00 AM EDT Former Smoker completed Former Smoker eCW1 ([facility]) Smoking 08/08/2020 12:00:00 AM EDT Former Smoker completed Former Smoker eCW1 ([facility]) Smoking 08/08/2020 12:00:00 AM EDT Former Smoker completed Former Smoker eCW1 ([facility]) Smoking 08/08/2020 12:00:00 AM EDT Former Smoker completed Former Smoker eCW1 ([facility]) Smoking 08/08/2020 12:00:00 AM EDT Former Smoker completed Former Smoker eCW1 ([facility]) Smoking 06/30/2020 12:00:00 AM EST Former Smoker completed Former Smoker eCW1 ([facility]) Smoking 06/30/2020 12:00:00 AM EST Former Smoker completed Former Smoker eCW1 ([facility]) Smoking 06/30/2020 12:00:00 AM EST Former Smoker completed Former Smoker eCW1 ([facility]) Smoking 06/30/2020 12:00:00 AM EST Former Smoker completed Former Smoker eCW1 ([facility]) Smoking 06/30/2020 12:00:00 AM EST Former Smoker completed Former Smoker eCW1 ([facility]) Smoking 06/30/2020 12:00:00 AM EST Former Smoker completed Former Smoker eCW1 ([facility]) Smoking 06/30/2020 12:00:00 AM EST Former Smoker completed Former Smoker eCW1 ([facility]) Smoking 06/30/2020 12:00:00 AM EST Former Smoker completed Former Smoker eCW1 ([facility]) Smoking 06/30/2020 12:00:00 AM EST Former Smoker completed Former Smoker eCW1 ([facility]) Smoking 05/19/2020 12:00:00 AM EST Former Smoker completed Former Smoker eCW1 ([facility]) Smoking 05/19/2020 12:00:00 AM EST Former Smoker completed Former Smoker eCW1 ([facility]) Smoking 05/19/2020 12:00:00 AM EST Former Smoker completed Former Smoker eCW1 ([facility]) Smoking 05/19/2020 12:00:00 AM EST Former Smoker completed Former Smoker eCW1 ([facility]) Smoking 05/19/2020 12:00:00 AM EST Former Smoker completed Former Smoker eCW1 ([facility]) Smoking 05/19/2020 12:00:00 AM EST Former Smoker completed Former Smoker eCW1 ([facility]) Smoking 05/19/2020 12:00:00 AM EST Former Smoker completed Former Smoker eCW1 ([facility]) Smoking 05/19/2020 12:00:00 AM EST Former Smoker completed Former Smoker eCW1 ([facility]) Smoking 05/19/2020 12:00:00 AM EST Former Smoker completed Former Smoker eCW1 ([facility]) Smoking 05/19/2020 12:00:00 AM EST Former Smoker completed Former Smoker eCW1 ([facility]) Smoking 05/19/2020 12:00:00 AM EST Former Smoker completed Former Smoker eCW1 ([facility]) Smoking 05/19/2020 12:00:00 AM EST Former Smoker completed Former Smoker eCW1 ([facility]) Smoking 05/19/2020 12:00:00 AM EST Former Smoker completed Former Smoker eCW1 ([facility]) Smoking 04/21/2020 12:00:00 AM EST Former Smoker completed Former Smoker eCW1 ([facility]) Smoking 04/21/2020 12:00:00 AM EST Former Smoker completed Former Smoker eCW1 ([facility]) Smoking 04/21/2020 12:00:00 AM EST Former Smoker completed Former Smoker eCW1 ([facility]) Smoking 04/21/2020 12:00:00 AM EST Former Smoker completed Former Smoker eCW1 ([facility]) Smoking 04/21/2020 12:00:00 AM EST Former Smoker completed Former Smoker eCW1 ([facility]) Smoking 04/21/2020 12:00:00 AM EST Former Smoker completed Former Smoker eCW1 ([facility]) Smoking 03/17/2020 12:00:00 AM EST Former Smoker completed Former Smoker eCW1 ([facility]) Smoking 03/17/2020 12:00:00 AM EST Former Smoker completed Former Smoker eCW1 ([facility]) Smoking 03/17/2020 12:00:00 AM EST Former Smoker completed Former Smoker eCW1 ([facility]) Smoking 03/17/2020 12:00:00 AM EST Former Smoker completed Former Smoker eCW1 ([facility]) Smoking 03/17/2020 12:00:00 AM EST Former Smoker completed Former Smoker eCW1 ([facility]) Smoking 03/17/2020 12:00:00 AM EST Former Smoker completed Former Smoker eCW1 ([facility]) Smoking 03/17/2020 12:00:00 AM EST Former Smoker completed Former Smoker eCW1 ([facility]) Smoking 03/17/2020 12:00:00 AM EST Former Smoker completed Former Smoker eCW1 ([facility]) Smoking 03/17/2020 12:00:00 AM EST Former Smoker completed Former Smoker eCW1 ([facility]) Vital Signs ID Date Data Source UNK Name Value Range Interpretation Code Description Data Source(s) [place] body weight 140 [lb_av] 140 [lb_av] MEDEN T ([facility]) Systolic blood pressure 100 mm[Hg] 100 mm[Hg] M EDENT ([facility]) Diastolic blood pressure 62 mm[Hg] 62 mm[Hg] MEDENT ([facility]) Heart rate 80 /min 80 /min [facility] ([facility]) Oxygen saturation in Arterial blood by Pulse oximetry 95 % 95 % [facility] ([facility] Respiratory rate 18 /min 18 /min [facility] ( [facility]) Body height 68 [in_i] 68 [in_i] [facility] ([facility]) 5'8" Body weight 101.153 kg 101.153 kg [facility] ([facility]) Body weight 223.00 [lb_av] 223.00 [lb_av] MEDEN T ([facility]) Body mass index (BMI) [Ratio] 33.9 kg/m2 33.9 k g/m2 [facility] ([facility]) Body surface area Derived from formula 2.14 m2 2.14 m2 [facility] ([facility]) Heart rate 77 /min 77 /min eCW1 ([facility]) Body mass index (BMI) [Ratio] 34.06 kg/m2 34.06 kg/m2 eCW1 ([facility]) Body weight 222.4 [lb_av] 222.4 [lb_av] eCW1 ([facility]) Respiratory rate 18 /min 18 /min eCW1 ([facility]) Body weight 100.88 kg 100.88 kg eCW1 ([facility]) Body height 67.75 [in_i] 67.75 [in_i] eCW1 ([facility]) Systolic blood pressure 128 mm[Hg] 128 mm[Hg] e CW1 ([facility]) Diastolic blood pressure 72 mm[Hg] 72 mm[Hg] eCW1 ([facility]) Body temperature 99.0 [degF] 99.0 [degF] eCW1 ( [facility]) Body weight 219 [lb_av] 219 [lb_av] eCW1 ([facility]) Body height 67.75 [in_i] 67.75 [in_i] eCW1 ([facility]) Systolic blood pressure 116 mm[Hg] 116 mm[Hg] e CW1 ([facility]) Body mass index (BMI) [Ratio] 33.54 kg/m2 33.54 kg/m2 eCW1 ([facility]) Diastolic blood pressure 76 mm[Hg] 76 mm[Hg] eCW1 ([facility]) Heart rate 83 /min 83 /min eCW1 ([facility]) Respiratory rate 18 /min 18 /min eCW1 ([facility]) Body temperature 97.7 [degF] 97.7 [degF] eCW1 ( [facility]) Body temperature 98.4 [degF] 98.4 [degF] eCW1 ( [facility]) Body weight 218 [lb_av] 218 [lb_av] eCW1 ([facility]) Body height 67.75 [in_i] 67.75 [in_i] eCW1 ([facility]) Body mass index (BMI) [Ratio] 33.39 kg/m2 33.39 kg/m2 eCW1 ([facility]) Heart rate 73 /min 73 /min eCW1 ([facility]) Respiratory rate 20 /min 20 /min eCW1 ([facility]) Systolic blood pressure 124 mm[Hg] 124 mm[Hg] e CW1 ([facility]) Diastolic blood pressure 80 mm[Hg] 80 mm[Hg] eCW1 ([facility]) Body weight 218.4 [lb_av] 218.4 [lb_av] eCW1 ([facility]) Body height 67.75 [in_i] 67.75 [in_i] eCW1 ([facility]) Body mass index (BMI) [Ratio] 33.45 kg/m2 33.45 kg/m2 W1 ([facility]) Heart rate 82 /min 82 /min eCW1 ([facility]) Respiratory rate 18 /min 18 /min eCW1 ([facility]) Body temperature 97.6 [degF] 97.6 [degF] eCW1 ( [facility]) Systolic blood pressure 118 mm[Hg] 118 mm[Hg] e CW1 ([facility]) Diastolic blood pressure 80 mm[Hg] 80 mm[Hg] eCW1 ([facility]) Oxygen saturation in Arterial blood by Pulse oximetry 95 % 95 % [facility] ([facility], ) Body weight 221.25 [lb_av] 221.25 [lb_av] MEDEN T ([facility], ) Body weight 100.359 kg 100.359 kg MEDENT ([facility]) Systolic blood pressure 118 mm[Hg] 118 mm[Hg] M EDENT ([facility], ) Diastolic blood pressure 62 mm[Hg] 62 mm[Hg] MEDENT ([facility], ) Heart rate 61 /min 61 /min MEDENT ([facility], ) Oxygen saturation in Arterial blood by Pulse oximetry 95 % 95 % [facility] ([facility], ) Body weight 221.25 [lb_av] 221.25 [lb_av] MEDEN T ([facility], ) Body weight 100.359 kg 100.359 kg MEDENT ([facility], ) Body weight 213 [lb_av] 213 [lb_av] eCW1 ([facility]) Body height 67.75 [in_i] 67.75 [in_i] eCW1 ([facility]) Body mass index (BMI) [Ratio] 32.62 kg/m2 32.62 kg/m2 eCW1 ([facility]) Heart rate 83 /min 83 /min eCW1 ([facility]) Respiratory rate 18 /min 18 /min eCW1 ([facility]) Body temperature 97.3 [degF] 97.3 [degF] eCW1 ( [facility]) Systolic blood pressure 124 mm[Hg] 124 mm[Hg] e CW1 ([facility]) Diastolic blood pressure 78 mm[Hg] 78 mm[Hg] eCW1 ([facility]) Body weight 212 [lb_av] 212 [lb_av] eCW1 ([facility]) Body height 67.75 [in_i] 67.75 [in_i] eCW1 ([facility]) Body mass index (BMI) [Ratio] 32.47 kg/m2 32.47 kg/m2 eCW1 ([facility]) Heart rate 82 /min 82 /min eCW1 ([facility]) Respiratory rate 18 /min 18 /min eCW1 ([facility]) Body temperature 987.1 [degF] 987.1 [degF] eCW1 ([facility]) Systolic blood pressure 120 mm[Hg] 120 mm[Hg] e CW1 ([facility]) Diastolic blood pressure 70 mm[Hg] 70 mm[Hg] eCW1 ([facility]) Body weight 204 [lb_av] 204 [lb_av] eCW1 ([facility]) Body weight 92.53 kg 92.53 kg eCW1 ([facility]) Body height 67.75 [in_i] 67.75 [in_i] eCW1 ([facility]) Body mass index (BMI) [Ratio] 31.24 kg/m2 31.24 kg/m2 eCW1 ([facility]) Systolic blood pressure 100 mm[Hg] 100 mm[Hg] e CW1 ([facility]) Diastolic blood pressure 60 mm[Hg] 60 mm[Hg] eCW1 ([facility]) Diastolic blood pressure 80 mm[Hg] 80 mm[Hg] MEDENT ([facility]) Heart rate 78 /min 78 /min MEDENT ([facility]) Respiratory rate 16 /min 16 /min MEDENT ( [facility]) Body temperature 98.7 [degF] 98.7 [degF] MEDENT ([facility]) Body weight 220.00 [lb_av] 220.00 [lb_av] MEDEN T ([facility]) Oxygen saturation in Arterial blood by Pulse oximetry 99 % 99 % MEDENT ([facility]) Body height 68 [in_i] 68 [in_i] [facility] ([facility]) 5'8" Systolic blood pressure 124 mm[Hg] 124 mm[Hg] [facility] Body mass index (BMI) [Ratio] 33.4 kg/m2 33.4 k g/m2 [facility] ([facility]) Systolic blood pressure 104 mm[Hg] 104 mm[Hg] [facility] Body weight 96.163 kg 96.163 kg [facility] ([facility]) Diastolic blood pressure 74 mm[Hg] 74 mm[Hg] [facility] [facility] Heart rate 89 /min 89 /min [facility] ([facility]) Oxygen saturation in Arterial blood by Pulse oximetry 95 % 95 % [facility] ([facility]) Body height 68 [in_i] 68 [in_i] [facility] ([facility]) 5'8" Body weight 212.00 [lb_av] 212.00 [lb_av] [facility] ([facility]) Body mass index (BMI) [Ratio] 32.2 kg/m2 32.2 k g/m2 [facility] ([facility]) [place] body weight 140 [lb_av] 140 [lb_av] [facility] ([facility]) Body surface area Derived from formula 2.09 m2 2.09 m2 [facility] ([facility]) Body weight 211.2 [lb_av] 211.2 [lb_av] eCW1 ([facility]) Body height 67.75 [in_i] 67.75 [in_i] eCW1 ([facility]) Body mass index (BMI) [Ratio] 32.35 kg/m2 32.35 kg/m2 eCW1 ([facility]) Heart rate 79 /min 79 /min eCW1 ([facility]) Respiratory rate 20 /min 20 /min eCW1 ([facility]) Body temperature 98.8 [degF] 98.8 [degF] eCW1 ( [facility]) Systolic blood pressure 120 mm[Hg] 120 mm[Hg] e CW1 ([facility]) Diastolic blood pressure 82 mm[Hg] 82 mm[Hg] eCW1 ([facility]) Body weight 211.2 [lb_av] 211.2 [lb_av] eCW1 ([facility]) Body height 67.75 [in_i] 67.75 [in_i] eCW1 ([facility]) Body mass index (BMI) [Ratio] 32.35 kg/m2 32.35 kg/m2 eCW1 ([facility]) Heart rate 79 /min 79 /min eCW1 ([facility]) Respiratory rate 20 /min 20 /min eCW1 ([facility]) Body temperature 98.8 [degF] 98.8 [degF] eCW1 ( [facility]) Systolic blood pressure 120 mm[Hg] 120 mm[Hg] e CW1 ([facility]) Diastolic blood pressure 82 mm[Hg] 82 mm[Hg] eCW1 ([facility]) Respiratory rate 20 /min 20 /min [facility] ( [facility]) Body temperature 98.0 [degF] 98.0 [degF] [facility] ([facility], [facility]) Body weight 220.00 [lb_av] 220.00 [lb_av] MEDEN T ([facility], [facility]) Oxygen saturation in Arterial blood by Pulse oximetry 97 % 97 % [facility] ([facility], [facility]) Systolic blood pressure 132 mm[Hg] 132 mm[Hg] M EDENT ([facility], [facility]) Body height 68 [in_i] 68 [in_i] [facility] ([facility], [facility]) 5'8" Diastolic blood pressure 80 mm[Hg] 80 mm[Hg] [facility] ([facility], [facility]) Body mass index (BMI) [Ratio] 33.4 kg/m2 33.4 k g/m2 [facility] ([facility], [facility]) Heart rate 66 /min 66 /min [facility] ([facility], [facility]) Systolic blood pressure 135 mm[Hg] 135 mm[Hg] M EDENT ([facility], [facility]) Diastolic blood pressure 76 mm[Hg] 76 mm[Hg] [facility] ([facility], [facility]) Heart rate 96 /min 96 /min [facility] ([facility], [facility]) Respiratory rate 16 /min 16 /min [facility] ( [facility], [facility]) Oxygen saturation in Arterial blood by Pulse oximetry 98 % 98 % [facility] ([facility], [facility]) Body temperature 98.3 [degF] 98.3 [degF] [facility] ([facility], [facility]) Body weight 220.00 [lb_av] 220.00 [lb_av] MEDEN T ([facility], [facility]) Body height 68 [in_i] 68 [in_i] [facility] ([facility], [facility]) 5'8" Body mass index (BMI) [Ratio] 33.4 kg/m2 33.4 k g/m2 [facility] ([facility], [facility]) Body weight 209 [lb_av] 209 [lb_av] eCW1 ([facility]) Body height 67.75 [in_i] 67.75 [in_i] eCW1 ([facility]) Body mass index (BMI) [Ratio] 32.01 kg/m2 32.01 kg/m2 W1 ([facility]) Heart rate 96 /min 96 /min eCW1 ([facility]) Respiratory rate 18 /min 18 /min eCW1 ([facility]) Body temperature 99.1 [degF] 99.1 [degF] eCW1 ( [facility]) Systolic blood pressure 130 mm[Hg] 130 mm[Hg] e CW1 ([facility]) Diastolic blood pressure 98 mm[Hg] 98 mm[Hg] eCW1 ([facility]) Body height 67.75 [in_i] 67.75 [in_i] eCW1 ([facility]) Body mass index (BMI) [Ratio] 32.01 kg/m2 32.01 kg/m2 eCW1 ([facility]) Heart rate 62 /min 62 /min eCW1 ([facility]) Respiratory rate 18 /min 18 /min eCW1 ([facility]) Body temperature 98.6 [degF] 98.6 [degF] eCW1 ( [facility]) Systolic blood pressure 150 mm[Hg] 150 mm[Hg] e CW1 ([facility]) Diastolic blood pressure 92 mm[Hg] 92 mm[Hg] eCW1 ([facility]) Body weight 209.0 [lb_av] 209.0 [lb_av] eCW1 ([facility]) Systolic blood pressure 130 mm[Hg] 130 mm[Hg] M EDENT ([facility], [facility]) Diastolic blood pressure 80 mm[Hg] 80 mm[Hg] [facility] ([facility]) Heart rate 61 /min 61 /min [facility] ([facility], [facility]) Respiratory rate 16 /min 16 /min [facility] ( [facility], [facility]) Oxygen saturation in Arterial blood by Pulse oximetry 96 % 96 % [facility] ([facility]) Body temperature 98.2 [degF] 98.2 [degF] [facility] ([facility], [facility]) Body weight 220.00 [lb_av] 220.00 [lb_av] MEDEN T ([facility], [facility]) Body height 68 [in_i] 68 [in_i] [facility] ([facility]) 5'8" Body mass index (BMI) [Ratio] 33.4 kg/m2 33.4 k g/m2 [facility] ([facility], [facility]) Body weight 211.0 [lb_av] 211.0 [lb_av] eCW1 ([facility]) Body height 67.75 [in_i] 67.75 [in_i] eCW1 ([facility]) Body mass index (BMI) [Ratio] 32.32 kg/m2 32.32 kg/m2 eCW1 ([facility]) Heart rate 80 /min 80 /min eCW1 ([facility]) Respiratory rate 20 /min 20 /min eCW1 ([facility]) Body temperature 97.2 [degF] 97.2 [degF] eCW1 ( [facility]) Systolic blood pressure 132 mm[Hg] 132 mm[Hg] e CW1 ([facility]) Diastolic blood pressure 80 mm[Hg] 80 mm[Hg] eCW1 ([facility]) Body weight 211.0 [lb_av] 211.0 [lb_av] eCW1 ([facility]) Body height 67.75 [in_i] 67.75 [in_i] eCW1 ([facility]) Body mass index (BMI) [Ratio] 32.32 kg/m2 32.32 kg/m2 eCW1 ([facility]) Heart rate 80 /min 80 /min eCW1 ([facility]) Respiratory rate 20 /min 20 /min eCW1 ([facility]) Body temperature 97.2 [degF] 97.2 [degF] eCW1 ( [facility]) Systolic blood pressure 132 mm[Hg] 132 mm[Hg] e CW1 ([facility]) Diastolic blood pressure 80 mm[Hg] 80 mm[Hg] eCW1 ([facility]) Body temperature 96.7 [degF] 96.7 [degF] [facility] ([facility] ) ID Date Data Source [id number] 06/23/2020 07:31:41 AM [facility] Name Value Range Interpretation Code Description Data Source(s) [facility] Planned Activity Planned Date Details Description Data Source (s) tramadol hydrochloride 50 MG Oral Tablet 04/01/2021 12:00:00 AM EST eCW1 ([facility]) tramadol hydrochloride 50 MG Oral Tablet 04/01/2021 12:00:00 AM EST eCW1 ([facility]) tramadol hydrochloride 50 MG Oral Tablet 04/01/2021 12:00:00 AM EST eCW1 ([facility]) tramadol hydrochloride 50 MG Oral Tablet 04/01/2021 12:00:00 AM EST eCW1 ([facility]) 168 HR Buprenorphine 0.01 MG/HR Transdermal Patch [BuT rans] 03/30/2021 12:00:00 AM EST eCW1 ([facility]) 168 HR Buprenorphine 0.01 MG/HR Transdermal Patch [BuT rans] 03/30/2021 12:00:00 AM EST eCW1 ([facility]) 168 HR Buprenorphine 0.01 MG/HR Transdermal Patch [BuT rans] 03/30/2021 12:00:00 AM EST eCW1 ([facility]) 168 HR Buprenorphine 0.01 MG/HR Transdermal Patch [BuT rans] 03/30/2021 12:00:00 AM EST eCW1 ([facility]) 168 HR Buprenorphine 0.01 MG/HR Transdermal Patch [BuT rans] 03/30/2021 12:00:00 AM EST eCW1 ([facility]) 168 HR Buprenorphine 0.01 MG/HR Transdermal Patch [BuT rans] 03/30/2021 12:00:00 AM EST eCW1 ([facility]) tramadol hydrochloride 50 MG Oral Tablet 03/27/2021 12:00:00 AM EST eCW1 ([facility]) tramadol hydrochloride 50 MG Oral Tablet 03/27/2021 12:00:00 AM EST eCW1 ([facility]) 24 HR tramadol hydrochloride 100 MG Extended Release O ral Tablet 03/25/2021 12:00:00 AM EST eCW1 ([facility]) 24 HR tramadol hydrochloride 100 MG Extended Release O ral Tablet 03/25/2021 12:00:00 AM EST eCW1 ([facility]) [place] 75 MCG 03/24/2021 12:00:00 AM EST eCW1 ([facility]) [place] 75 MCG 03/24/2021 12:00:00 AM EST eCW1 ([facility]) [place] 75 MCG 03/24/2021 12:00:00 AM EST eCW1 ([facility]) [place] 75 MCG 03/24/2021 12:00:00 AM EST eCW1 ([facility]) [place] 75 MCG 03/24/2021 12:00:00 AM EST eCW1 ([facility]) [place] 75 MCG 03/24/2021 12:00:00 AM EST eCW1 ([facility]) [place] 75 MCG 03/24/2021 12:00:00 AM EST eCW1 ([facility]) [place] 75 MCG 03/24/2021 12:00:00 AM EST eCW1 ([facility]) [place] 75 MCG 03/24/2021 12:00:00 AM EST eCW1 ([facility]) [place] 75 MCG 03/24/2021 12:00:00 AM EST eCW1 ([facility]) tramadol hydrochloride 50 MG Oral Tablet 02/20/2021 12:00:00 AM EDT eCW1 ([facility]) tramadol hydrochloride 50 MG Oral Tablet 02/20/2021 12:00:00 AM EDT eCW1 ([facility]) tramadol hydrochloride 50 MG Oral Tablet 02/20/2021 12:00:00 AM EDT eCW1 ([facility]) tramadol hydrochloride 50 MG Oral Tablet 02/20/2021 12:00:00 AM EDT eCW1 ([facility]) tramadol hydrochloride 50 MG Oral Tablet 02/20/2021 12:00:00 AM EDT eCW1 ([facility]) tramadol hydrochloride 50 MG Oral Tablet 02/20/2021 12:00:00 AM EDT eCW1 ([facility]) Liraglutide 18 MG/3ML 02/19/2021 12:00:00 AM EDT eCW1 ([facility]) Liraglutide 18 MG/3ML 02/19/2021 12:00:00 AM EDT eCW1 ([facility]) Liraglutide 18 MG/3ML 02/19/2021 12:00:00 AM EDT eCW1 ([facility]) Liraglutide 18 MG/3ML 02/19/2021 12:00:00 AM EDT eCW1 ([facility]) Liraglutide 18 MG/3ML 02/19/2021 12:00:00 AM EDT eCW1 ([facility]) Liraglutide 18 MG/3ML 02/19/2021 12:00:00 AM EDT eCW1 ([facility]) Liraglutide 18 MG/3ML 02/19/2021 12:00:00 AM EDT eCW1 ([facility]) Liraglutide 18 MG/3ML 02/19/2021 12:00:00 AM EDT eCW1 ([facility]) Liraglutide 18 MG/3ML 02/19/2021 12:00:00 AM EDT eCW1 ([facility]) Liraglutide 18 MG/3ML 02/19/2021 12:00:00 AM EDT eCW1 ([facility]) Liraglutide 18 MG/3ML 02/19/2021 12:00:00 AM EDT eCW1 ([facility]) Liraglutide 18 MG/3ML 02/19/2021 12:00:00 AM EDT eCW1 ([facility]) Liraglutide 18 MG/3ML 02/19/2021 12:00:00 AM EDT eCW1 ([facility]) Liraglutide 18 MG/3ML 02/19/2021 12:00:00 AM EDT eCW1 ([facility]) [place] 75 MCG 02/19/2021 12:00:00 AM EDT eCW1 ([facility]) Liraglutide 18 MG/3ML 02/19/2021 12:00:00 AM EDT eCW1 ([facility]) Liraglutide 18 MG/3ML 02/19/2021 12:00:00 AM EDT eCW1 ([facility]) Liraglutide 18 MG/3ML 02/19/2021 12:00:00 AM EDT eCW1 ([facility]) Nortriptyline 25 MG Oral Capsule 11/11/2020 12:00:00 AM EDT eCW1 ([facility]) Nortriptyline 25 MG Oral Capsule 11/11/2020 12:00:00 AM EDT eCW1 ([facility]) Nortriptyline 25 MG Oral Capsule 11/11/2020 12:00:00 AM EDT eCW1 ([facility]) Nortriptyline 25 MG Oral Capsule 11/11/2020 12:00:00 AM EDT eCW1 ([facility]) Nortriptyline 25 MG Oral Capsule 11/11/2020 12:00:00 AM EDT eCW1 ([facility]) Nortriptyline 25 MG Oral Capsule 11/11/2020 12:00:00 AM EDT eCW1 ([facility]) Nortriptyline 25 MG Oral Capsule 11/11/2020 12:00:00 AM EDT eCW1 ([facility]) Nortriptyline 25 MG Oral Capsule 11/11/2020 12:00:00 AM EDT eCW1 ([facility]) Nortriptyline 25 MG Oral Capsule 11/11/2020 12:00:00 AM EDT eCW1 ([facility]) Nortriptyline 25 MG Oral Capsule 11/11/2020 12:00:00 AM EDT eCW1 ([facility]) Chlorthalidone 25 MG Oral Tablet 11/06/2020 12:00:00 AM EDT eCW1 ([facility]) Chlorthalidone 25 MG Oral Tablet 11/06/2020 12:00:00 AM EDT eCW1 ([facility]) Chlorthalidone 25 MG Oral Tablet 11/06/2020 12:00:00 AM EDT eCW1 ([facility]) Sucralfate 100 MG/ML Oral Suspension [Carafate] 08/19/2020 12:00:00 AM EDT eCW1 ([facility]) lansoprazole 30 MG Delayed Release Oral Capsule 08/19/2020 12:00:00 AM EDT eCW1 ([facility]) PARoxetine HCl 10 MG 08/19/2020 12:00:00 AM EDT eCW1 ([facility]) Sucralfate 100 MG/ML Oral Suspension [Carafate] 08/19/2020 12:00:00 AM EDT eCW1 ([facility]) lansoprazole 30 MG Delayed Release Oral Capsule 08/19/2020 12:00:00 AM EDT eCW1 ([facility]) Paroxetine HCl 10 MG 08/19/2020 12:00:00 AM EDT eCW1 ([facility]) Sucralfate 100 MG/ML Oral Suspension [Carafate] 08/19/2020 12:00:00 AM EDT eCW1 ([facility]) lansoprazole 30 MG Delayed Release Oral Capsule 08/19/2020 12:00:00 AM EDT eCW1 ([facility]) Paroxetine HCl 10 MG 08/19/2020 12:00:00 AM EDT eCW1 ([facility]) Sucralfate 100 MG/ML Oral Suspension [Carafate] 08/19/2020 12:00:00 AM EDT eCW1 ([facility]) lansoprazole 30 MG Delayed Release Oral Capsule 08/19/2020 12:00:00 AM EDT eCW1 ([facility]) Paroxetine HCl 10 MG 08/19/2020 12:00:00 AM EDT eCW1 ([facility]) Sucralfate 100 MG/ML Oral Suspension [Carafate] 08/19/2020 12:00:00 AM EDT eCW1 ([facility]) Paroxetine HCl 10 MG 08/19/2020 12:00:00 AM EDT eCW1 ([facility]) lansoprazole 30 MG Delayed Release Oral Capsule 08/19/2020 12:00:00 AM EDT eCW1 ([facility]) Paroxetine HCl 10 MG 08/19/2020 12:00:00 AM EDT eCW1 ([facility]) Sucralfate 100 MG/ML Oral Suspension [Carafate] 08/19/2020 12:00:00 AM EDT eCW1 ([facility]) lansoprazole 30 MG Delayed Release Oral Capsule 08/19/2020 12:00:00 AM EDT eCW1 ([facility]) Paroxetine HCl 10 MG 08/19/2020 12:00:00 AM EDT eCW1 ([facility]) Sucralfate 100 MG/ML Oral Suspension [Carafate] 08/19/2020 12:00:00 AM EDT eCW1 ([facility]) lansoprazole 30 MG Delayed Release Oral Capsule 08/19/2020 12:00:00 AM EDT eCW1 ([facility]) Paroxetine HCl 10 MG 08/19/2020 12:00:00 AM EDT eCW1 ([facility]) lansoprazole 30 MG Delayed Release Oral Capsule 08/19/2020 12:00:00 AM EDT eCW1 ([facility]) Sucralfate 100 MG/ML Oral Suspension [Carafate] 08/19/2020 12:00:00 AM EDT eCW1 ([facility]) Estradiol 0.1 MG/ML Vaginal Cream 08/11/2020 12:00:00 AM EDT eCW1 ([facility]) Estradiol 0.1 MG/ML Vaginal Cream 08/11/2020 12:00:00 AM EDT eCW1 ([facility]) Estradiol 0.1 MG/ML Vaginal Cream 08/11/2020 12:00:00 AM EDT eCW1 ([facility]) Phenazopyridine hydrochloride 200 MG Oral Tablet 08/08/2020 12:00:0 0 AM EDT eCW1 ([facility]) Ciprofloxacin 500 MG Oral Tablet [Cipro] 08/08/2020 12:00:00 AM EDT eCW1 ([facility]) Phenazopyridine hydrochloride 200 MG Oral Tablet 08/08/2020 12:00:0 0 AM EDT eCW1 ([facility]) Ciprofloxacin 500 MG Oral Tablet [Cipro] 08/08/2020 12:00:00 AM EDT eCW1 ([facility]) Phenazopyridine hydrochloride 200 MG Oral Tablet 08/08/2020 12:00:0 0 AM EDT eCW1 ([facility]) Ciprofloxacin 500 MG Oral Tablet [Cipro] 08/08/2020 12:00:00 AM EDT eCW1 ([facility]) Phenazopyridine hydrochloride 200 MG Oral Tablet 08/08/2020 12:00:0 0 AM EDT eCW1 ([facility]) Ciprofloxacin 500 MG Oral Tablet [Cipro] 08/08/2020 12:00:00 AM EDT eCW1 ([facility]) Ondansetron 4 MG Disintegrating Oral Tablet 07/07/2020 12:00:00 AM EST eCW1 ([facility]) Ondansetron 4 MG Disintegrating Oral Tablet 07/07/2020 12:00:00 AM EST eCW1 ([facility]) Ondansetron 4 MG Disintegrating Oral Tablet 07/07/2020 12:00:00 AM EST eCW1 ([facility]) Ondansetron 4 MG Disintegrating Oral Tablet 07/07/2020 12:00:00 AM EST eCW1 ([facility]) Ondansetron 4 MG Disintegrating Oral Tablet 07/07/2020 12:00:00 AM EST eCW1 ([facility]) Ondansetron 4 MG Disintegrating Oral Tablet 07/07/2020 12:00:00 AM EST eCW1 ([facility]) Ondansetron 4 MG Disintegrating Oral Tablet 07/07/2020 12:00:00 AM EST eCW1 ([facility]) Ondansetron 4 MG Disintegrating Oral Tablet 07/07/2020 12:00:00 AM EST eCW1 ([facility]) Ondansetron 4 MG Disintegrating Oral Tablet 07/07/2020 12:00:00 AM EST eCW1 ([facility]) gabapentin 100 MG Oral Capsule 06/30/2020 12:00:00 AM EST eCW1 ([facility]) gabapentin 100 MG Oral Capsule 06/30/2020 12:00:00 AM EST eCW1 ([facility]) gabapentin 100 MG Oral Capsule 06/30/2020 12:00:00 AM EST eCW1 ([facility]) gabapentin 100 MG Oral Capsule 06/30/2020 12:00:00 AM EST eCW1 ([facility]) gabapentin 100 MG Oral Capsule 06/30/2020 12:00:00 AM EST eCW1 ([facility]) gabapentin 100 MG Oral Capsule 06/30/2020 12:00:00 AM EST eCW1 ([facility]) gabapentin 100 MG Oral Capsule 06/30/2020 12:00:00 AM EST eCW1 ([facility]) gabapentin 100 MG Oral Capsule 06/30/2020 12:00:00 AM EST eCW1 ([facility]) gabapentin 100 MG Oral Capsule 06/30/2020 12:00:00 AM EST eCW1 ([facility]) PredniSONE ([place]) 10mg 06/23/2020 12:00:00 AM EST eCW1 ([facility]) PredniSONE ([place]) 10mg 06/23/2020 12:00:00 AM EST eCW1 ([facility]) PredniSONE ([place]) 10mg 06/23/2020 12:00:00 AM EST eCW1 ([facility]) PredniSONE ([place]) 10mg 06/23/2020 12:00:00 AM EST eCW1 ([facility]) PredniSONE ([place]) 10mg 06/23/2020 12:00:00 AM EST eCW1 ([facility]) PredniSONE ([place]) 10mg 06/23/2020 12:00:00 AM EST eCW1 ([facility]) PredniSONE ([place]) 10mg 06/23/2020 12:00:00 AM EST eCW1 ([facility]) PredniSONE ([place]) 10mg 06/23/2020 12:00:00 AM EST eCW1 ([facility]) PredniSONE ([place]) 10mg 06/23/2020 12:00:00 AM EST eCW1 ([facility]) Sodium Chloride 0.111 MEQ/ML Nasal [place] [[place] brand of sodium chloride] 06/20/2020 12:00:00 AM EST eCW1 ([facility]) Sodium Chloride 0.111 MEQ/ML Nasal [place] [[place] brand of sodium chloride] 06/20/2020 12:00:00 AM EST eCW1 ([facility]) Sodium Chloride 0.111 MEQ/ML Nasal [place] [[place] brand of sodium chloride] 06/20/2020 12:00:00 AM EST eCW1 ([facility]) duloxetine 30 MG Delayed Release Oral Capsule 05/19/2020 12:00:00 A M EST eCW1 ([facility]) duloxetine 30 MG Delayed Release Oral Capsule 05/19/2020 12:00:00 A M EST eCW1 ([facility]) duloxetine 30 MG Delayed Release Oral Capsule 05/19/2020 12:00:00 A M EST eCW1 ([facility]) duloxetine 30 MG Delayed Release Oral Capsule 05/19/2020 12:00:00 A M EST eCW1 ([facility]) duloxetine 30 MG Delayed Release Oral Capsule 05/19/2020 12:00:00 A M EST eCW1 ([facility]) duloxetine 30 MG Delayed Release Oral Capsule 05/19/2020 12:00:00 A M EST eCW1 ([facility]) duloxetine 30 MG Delayed Release Oral Capsule 05/19/2020 12:00:00 A M EST eCW1 ([facility]) duloxetine 30 MG Delayed Release Oral Capsule 05/19/2020 12:00:00 A M EST eCW1 ([facility]) duloxetine 30 MG Delayed Release Oral Capsule 05/19/2020 12:00:00 A M EST eCW1 ([facility]) duloxetine 30 MG Delayed Release Oral Capsule 05/19/2020 12:00:00 A M EST eCW1 ([facility]) duloxetine 30 MG Delayed Release Oral Capsule 05/19/2020 12:00:00 A M EST eCW1 ([facility]) telmisartan 20 MG Oral Tablet 05/01/2020 12:00:00 AM EST eCW1 ([facility]) telmisartan 20 MG Oral Tablet 05/01/2020 12:00:00 AM EST eCW1 ([facility]) telmisartan 20 MG Oral Tablet 05/01/2020 12:00:00 AM EST eCW1 ([facility]) telmisartan 20 MG Oral Tablet 05/01/2020 12:00:00 AM EST eCW1 ([facility]) telmisartan 20 MG Oral Tablet 05/01/2020 12:00:00 AM EST eCW1 ([facility]) telmisartan 20 MG Oral Tablet 05/01/2020 12:00:00 AM EST eCW1 ([facility]) telmisartan 20 MG Oral Tablet 05/01/2020 12:00:00 AM EST eCW1 ([facility]) telmisartan 20 MG Oral Tablet 05/01/2020 12:00:00 AM EST eCW1 ([facility]) telmisartan 20 MG Oral Tablet 05/01/2020 12:00:00 AM EST eCW1 ([facility]) telmisartan 20 MG Oral Tablet 05/01/2020 12:00:00 AM EST eCW1 ([facility]) telmisartan 20 MG Oral Tablet 05/01/2020 12:00:00 AM EST eCW1 ([facility]) telmisartan 20 MG Oral Tablet 05/01/2020 12:00:00 AM EST eCW1 ([facility]) telmisartan 20 MG Oral Tablet 05/01/2020 12:00:00 AM EST eCW1 ([facility]) telmisartan 20 MG Oral Tablet 05/01/2020 12:00:00 AM EST eCW1 ([facility]) telmisartan 20 MG Oral Tablet 05/01/2020 12:00:00 AM EST eCW1 ([facility]) telmisartan 20 MG Oral Tablet 05/01/2020 12:00:00 AM EST eCW1 ([facility]) Nebulizer - 04/21/2020 12:00:00 AM EST e CW1 ([facility]) Albuterol 0.83 MG/ML Inhalant Solution 04/21/2020 12:00:00 AM EST eCW1 ([facility]) Nebulizer/Tubing/Mouthpiece - 04/21/2020 12:00:00 AM EST eCW1 ([facility]) Nebulizer - 04/21/2020 12:00:00 AM EST e CW1 ([facility]) Albuterol 0.83 MG/ML Inhalant Solution 04/21/2020 12:00:00 AM EST eCW1 ([facility]) Nebulizer/Tubing/Mouthpiece - 04/21/2020 12:00:00 AM EST eCW1 ([facility]) Nebulizer - 04/21/2020 12:00:00 AM EST e CW1 ([facility]) Albuterol 0.83 MG/ML Inhalant Solution 04/21/2020 12:00:00 AM EST eCW1 ([facility]) Nebulizer/Tubing/Mouthpiece - 04/21/2020 12:00:00 AM EST eCW1 ([facility]) Nebulizer - 04/21/2020 12:00:00 AM EST e CW1 ([facility]) Albuterol 0.83 MG/ML Inhalant Solution 04/21/2020 12:00:00 AM EST eCW1 ([facility]) Nebulizer/Tubing/Mouthpiece - 04/21/2020 12:00:00 AM EST eCW1 ([facility]) Albuterol 0.83 MG/ML Inhalant Solution 04/21/2020 12:00:00 AM EST eCW1 ([facility]) Nebulizer/Tubing/Mouthpiece - 04/21/2020 12:00:00 AM EST eCW1 ([facility]) Nebulizer - 04/21/2020 12:00:00 AM EST e CW1 ([facility]) Amlodipine 2.5 MG Oral Tablet 04/21/2020 12:00:00 AM EST eCW1 ([facility]) Albuterol 0.83 MG/ML Inhalant Solution 04/21/2020 12:00:00 AM EST eCW1 ([facility]) Nebulizer - 04/21/2020 12:00:00 AM EST e CW1 ([facility]) Nebulizer/Tubing/Mouthpiece - 04/21/2020 12:00:00 AM EST eCW1 ([facility]) duloxetine 30 MG Delayed Release Oral Capsule 03/25/2020 12:00:00 A M EST eCW1 ([facility]) duloxetine 30 MG Delayed Release Oral Capsule 03/25/2020 12:00:00 A M EST eCW1 ([facility]) duloxetine 30 MG Delayed Release Oral Capsule 03/25/2020 12:00:00 A M EST eCW1 ([facility]) carvedilol 12.5 MG Oral Tablet 03/17/2020 12:00:00 AM EST eCW1 ([facility]) carvedilol 12.5 MG Oral Tablet 03/17/2020 12:00:00 AM EST eCW1 ([facility]) carvedilol 12.5 MG Oral Tablet 03/17/2020 12:00:00 AM EST eCW1 ([facility]) carvedilol 12.5 MG Oral Tablet 03/17/2020 12:00:00 AM EST eCW1 ([facility]) carvedilol 12.5 MG Oral Tablet 03/17/2020 12:00:00 AM EST eCW1 ([facility]) carvedilol 12.5 MG Oral Tablet 03/17/2020 12:00:00 AM EST eCW1 ([facility]) carvedilol 12.5 MG Oral Tablet 03/17/2020 12:00:00 AM EST eCW1 ([facility]) carvedilol 12.5 MG Oral Tablet 03/17/2020 12:00:00 AM EST eCW1 ([facility]) carvedilol 12.5 MG Oral Tablet 03/17/2020 12:00:00 AM EST eCW1 ([facility]) carvedilol 12.5 MG Oral Tablet 03/17/2020 12:00:00 AM EST eCW1 ([facility]) carvedilol 12.5 MG Oral Tablet 03/17/2020 12:00:00 AM EST eCW1 ([facility]) carvedilol 12.5 MG Oral Tablet 03/17/2020 12:00:00 AM EST eCW1 ([facility]) carvedilol 12.5 MG Oral Tablet 03/17/2020 12:00:00 AM EST eCW1 ([facility]) carvedilol 12.5 MG Oral Tablet 03/17/2020 12:00:00 AM EST eCW1 ([facility]) carvedilol 6.25 MG Oral Tablet 03/17/2020 12:00:00 AM EST eCW1 ([facility]) carvedilol 6.25 MG Oral Tablet 03/17/2020 12:00:00 AM EST eCW1 ([facility]) carvedilol 12.5 MG Oral Tablet 03/17/2020 12:00:00 AM EST eCW1 ([facility]) carvedilol 12.5 MG Oral Tablet 03/17/2020 12:00:00 AM EST eCW1 ([facility]) carvedilol 12.5 MG Oral Tablet 03/17/2020 12:00:00 AM EST eCW1 ([facility]) carvedilol 6.25 MG Oral Tablet 03/17/2020 12:00:00 AM EST eCW1 ([facility]) carvedilol 6.25 MG Oral Tablet 03/17/2020 12:00:00 AM EST eCW1 ([facility]) carvedilol 6.25 MG Oral Tablet 03/17/2020 12:00:00 AM EST eCW1 ([facility]) carvedilol 6.25 MG Oral Tablet 03/17/2020 12:00:00 AM EST eCW1 ([facility]) carvedilol 6.25 MG Oral Tablet 03/17/2020 12:00:00 AM EST eCW1 ([facility]) carvedilol 6.25 MG Oral Tablet 03/17/2020 12:00:00 AM EST eCW1 ([facility]) carvedilol 6.25 MG Oral Tablet 03/17/2020 12:00:00 AM EST eCW1 ([facility]) 168 HR Buprenorphine 0.005 MG/HR Transdermal Patch [Bu Trans] 02/28/2020 12:00:00 AM EDT eCW1 ([facility]) 168 HR Buprenorphine 0.005 MG/HR Transdermal Patch [Bu Trans] 02/28/2020 12:00:00 AM EDT eCW1 ([facility])
--- OUTSIDE RECORDS SUMMARY | 2021-04-20 17:22 | CCD ---
Author Author [facility] Organization [facility] Address Unknown Phone Unavailable Care Team Providers Care Customer Agent Name Role Phone Shepard, Amanda SECURITY ATTENDANT Unavailable Unavailable Shepard, Amanda SECURITY ATTENDANT Unavailable Unavailable Shepard, Amanda SECURITY ATTENDANT Unavailable Unavailable Shepard, Amanda SECURITY ATTENDANT Unavailable Unavailable Shepard, Amanda SECURITY ATTENDANT Unavailable Unavailable Shepard, Amanda SECURITY ATTENDANT Unavailable Unavailable Shepard, Amanda SECURITY ATTENDANT Unavailable Unavailable Shepard, Amanda SECURITY ATTENDANT Unavailable Unavailable Shepard, Amanda SECURITY ATTENDANT Unavailable Unavailable Shepard, Amanda SECURITY ATTENDANT Unavailable Unavailable Shepard, Amanda SECURITY ATTENDANT Unavailable Unavailable Shepard, Amanda SECURITY ATTENDANT Unavailable Unavailable Shepard, Amanda SECURITY ATTENDANT Unavailable Unavailable SYSTEM IN, NOT IN PROVIDER [...] e FishLigia, PA-C Unavailable Unavailabl e Fish, [facility], PA-C Unavailable Unavailabl e Fish, [facility], PA-C Unavailable Unavailabl e Fish, [facility], PA-C Unavailable Unavailabl e Fish, [facility], PA-C Unavailable Unavailabl e Fish, [facility], PA-C Unavailable Unavailabl e Fish, [facility], PA-C Unavailable Unavailabl e Fish, [facility], PA-C Unavailable Unavailabl e Fish, [facility], PA-C Unavailable Unavailabl e Fish, [facility], PA-C Unavailable Unavailabl e Fish, [facility], PA-C Unavailable Unavailabl e Fish, [facility], PA-C Unavailable Unavailabl e Fish, [facility], PA-C Unavailable Unavailabl e Fish, [facility], PA-C Unavailable Unavailabl e Fish, [facility], PA-C Unavailable Unavailabl e Fish, [facility], PA-C Unavailable Unavailabl e Fish, [facility], PA-C Unavailable Unavailabl e Fish, [facility], PA-C Unavailable Unavailabl e Fish, [facility], PA-C Unavailable Unavailabl e Fish, [facility], PA-C Unavailable Unavailabl e Fish, [facility], PA-C Unavailable Unavailabl e Fish, [facility], PA-C Unavailable Unavailabl e Fish, [facility], PA-C Unavailable Unavailabl e Fish, [facility], PA-C Unavailable Unavailabl e Fish, [facility], PA-C Unavailable Unavailabl e Fish, [facility], PA-C Unavailable Unavailabl e Fish, [facility], PA-C Unavailable Unavailabl e Julieta Vasquez MD Unavailable Unavailable Julieta Vasquez MD Unavailable Unavailable Julieta Vasquez MD Unavailable Unavailable Julieta Vasquez MD Unavailable Unavailable Julieta Vasquez MD Unavailable Unavailable Julieta Vasquez MD Unavailable Unavailable Julieta Vasquez MD Unavailable Unavailable Julieta Vasquez MD Unavailable Unavailable Julieta Vsaquez MD Unavailable Unavailable Julieta Vasquez MD Unavailable [...] Unavailable Ali, Julieta MD Unavailable Unavailable Ali, Ujlieta MD Unavailable Unavailable Ali, Julieta MD Unavailable [...] Julieta MD Unavailable Unavailable CALEB, RADHA HAROON INTRAVENOUS THERAPY NURSE-C Unavailable Unavailable CALEB, RADHA HAROON INTRAVENOUS THERAPY NURSE-C Unavailable Unavailable CALEB, RADHA HAROON INTRAVENOUS THERAPY NURSE-C Unavailable Unavailable CALEB, RADHA HAROON INTRAVENOUS THERAPY NURSE-C Unavailable Unavailable CALEB, RADHA HAROON INTRAVENOUS THERAPY NURSE-C Unavailable Unavailable CALEB, RADHA HAROON INTRAVENOUS THERAPY NURSE-C Unavailable Unavailable CALEB, RADHA HAROON INTRAVENOUS THERAPY NURSE-C Unavailable Unavailable CALEB, RADHA HAROON INTRAVENOUS THERAPY NURSE-C Unavailable Unavailable CALEB, RADHA HAROON INTRAVENOUS THERAPY NURSE-C Unavailable Unavailable CALEB, RADHA HAROON INTRAVENOUS THERAPY NURSE-C Unavailable Unavailable CALEB, RADHA HAROON INTRAVENOUS THERAPY NURSE-C Unavailable Unavailable CALEB, RADHA HAROON INTRAVENOUS THERAPY NURSE-C Unavailable Unavailable CALEB, RADHA HAROON INTRAVENOUS THERAPY NURSE-C Unavailable Unavailable CALEB, RADHA HAROON INTRAVENOUS THERAPY NURSE-C Unavailable Unavailable CALEB, RADHA HAROON INTRAVENOUS THERAPY NURSE-C Unavailable Unavailable CALEB, RADHA HAROON INTRAVENOUS THERAPY NURSE-C Unavailable Unavailable CALEB, RADHA HAROON INTRAVENOUS THERAPY NURSE-C Unavailable Unavailable HAROON, NITO PA Unavailable Unavailable [...] is protected by Article 27-F of the [facility] Public [employer] law. If you continue you may have access to information: Regarding HIV / AIDS; Provided by facilities licensed or operated by the [facility] Office of Mental Health; or Provided by the [facility] Office for People With Developmental Disabilities. If such information is present, then the following [facility] mandated warning applies: This information has been [...] law may result in a fine or retirement sentence or both. A general authorization for [...] Date Indications Data Source(s ) [place] [address] [facility] [address] 04/01/2021 12:00:00 AM EST eCW1 ([facility]) [place] [address] [facility] [address] 04/01/2021 12:00:00 AM EST eCW1 ([facility]) Unknown [address] [facility] [address] 04/01/2021 12:00:00 AM EST eCW1 ([facility]) [place] [address] [facility] [address] 04/01/2021 12:00:00 AM EST eCW1 ([facility]) [place] [address] [facility] [place] [address] 03/30/2021 12:00:00 AM EST eCW1 ([facility]) [place] [address] [facility] [address] 03/30/2021 12:00:00 AM EST eCW1 ([facility]) [place] [address] [facility] [address] 03/27/2021 12:00:00 AM EST eCW1 ([facility]) [place] [address] [facility] [address] 03/26/2021 12:00:00 AM EST eCW1 ([facility]) Unknown [address] [facility] [address] 03/25/2021 12:00:00 AM EST eCW1 ([facility]) [place] [address] [facility] [place] [address] 03/25/2021 12:00:00 AM EST eCW1 ([facility]) Unknown [address] [facility] [place] [address] 03/19/2021 12:00:00 AM EDT eCW1 ([facility]) Unknown [address] [facility] [address] 03/19/2021 12:00:00 AM EDT [facility] [place] [address] [facility] [address] 03/17/2021 12:00:00 AM EDT eCW1 ([facility]) Outpatient Attender: HAROON Ramírez/Klaus/[place]/Patricia mcnamara 03/13/2021 02:15:00 PM EDT MEDENT ([facility], ) Office Visit Attender: Julieta Vasquez MD Main office - [place] 03/05/2021 12:45:00 PM EDT MEDENT ([facility], ) Unknown [address] [facility] [address] 02/20/2021 12:00:00 AM EDT eCW1 ([facility]) Unknown [address] [facility] [address] 02/20/2021 12:00:00 AM EDT eCW1 ([facility]) Office Visit, Est Pt., Level 4 [address] [place] [address] 02/19/2021 12:00:00 AM EDT eCW1 ([facility]) Unknown [address] [facility] [place] [address] 02/19/2021 12:00:00 AM EDT eCW1 ([facility]) Unknown [address] [facility] Y [address] 02/18/2021 12:00:00 AM EDT eCW1 ([facility]) Outpatient [address] [facility] Y [address] 02/06/2021 12:00:00 AM EDT eCW1 ([facility]) Unknown [address] [facility] Y [address] 02/05/2021 12:00:00 AM EDT eCW1 ([facility]) [place] [address] [facility] [address] 12/24/2020 12:00:00 AM EDT eCW1 ([facility]) Office Visit Attender: Julieta Vasquez MD Main office - [place] 12/18/2020 03:00:00 PM EDT MEDENT ([facility]) [place] [address] [facility] [address] 12/11/2020 12:00:00 AM EDT eCW1 ([facility]) Unknown [address] [facility] [address] 12/11/2020 12:00:00 AM EDT eCW1 ([facility]) Unknown [address] [facility] [address] 11/27/2020 12:00:00 AM EDT eCW1 ([facility]) Unknown [address] [facility] [address] 11/24/2020 12:00:00 AM EDT eCW1 ([facility]) Unknown [address] [facility] [address] 11/20/2020 12:00:00 AM EDT eCW1 ([facility]) Outpatient Attender: Marci BARNEY PA-C Physical Therapy 11/18/2020 01:30:00 PM EDT MEDENT ([facility]) Unknown [address] [facility] [address] 11/13/2020 12:00:00 AM EDT eCW1 ([facility]) Outpatient [address] [facility] [address] 11/11/2020 12:00:00 AM EDT eCW1 ([facility]) Unknown [address] [facility] [address] 11/10/2020 12:00:00 AM EDT eCW1 ([facility]) Unknown [address] [facility] [address] 11/10/2020 12:00:00 AM EDT eCW1 [facility] Unknown [address] [facility] [address] 11/06/2020 12:00:00 AM EDT eCW1 [facility] Unknown [address] [facility] [address] 11/05/2020 12:00:00 AM EDT eCW1 [facility] Unknown [address] [facility] [address] 10/28/2020 12:00:00 AM EDT eCW1 ([facility] Office Visit, Est Pt., Level 4 [address] [place] [address] 10/28/2020 12:00:00 AM EDT eCW1 ([facility] hospital) Unknown [address] [facility] [address] 10/27/2020 12:00:00 AM EDT eCW1 [facility] Outpatient Attender: Marci BARNEY PA-C Physical Therapy 10/23/2020 08:45:00 AM EDT MEDENT ([facility]) Outpatient Attender: HAROON MARCANO-C Darrell/Klaus/[place]/Patricia mcnamara 10/22/2020 09:45:00 AM EDT MEDENT ([facility]) [place] [address] [facility] [address] 10/16/2020 12:00:00 AM EDT eCW1 [facility] Unknown [address] [facility] [address] 10/14/2020 12:00:00 AM EDT eCW1 [facility] Unknown [address] [facility] [place] [address] 10/01/2020 12:00:00 AM EDT eCW1 ([facility] Unknown [address] [facility] [address] 09/25/2020 12:00:00 AM EDT eCW1 ([facility]) Unknown [address] [facility] [address] 08/22/2020 12:00:00 AM EDT eCW1 ([facility]) Outpatient [address] [facility] [place] [address] 08/19/2020 12:00:00 AM EDT eCW1 ([facility] [place] [address] [facility] [place] [address] 08/15/2020 12:00:00 AM EDT eCW1 ([facility] Office Visit, Est Pt., Level 3 PC [address] [place] [address] 08/14/2020 12:00:00 AM EDT eCW1 ([facility]) Unknown [address] [facility] [place] [address] 08/11/2020 12:00:00 AM EDT eCW1 ([facility]) Unknown [address] [facility] [place] [address] 08/11/2020 12:00:00 AM EDT eCW1 ([facility] Outpatient [address] [facility] [place] [address] 08/08/2020 12:00:00 AM EDT eCW1 ([facility] Unknown [address] [facility] [place] [address] 08/08/2020 12:00:00 AM EDT eCW1 ([facility] [place] [address] [facility] [place] [address] 08/07/2020 12:00:00 AM EDT eCW1 ([facility] Unknown [address] [facility] [place] [address] 07/31/2020 12:00:00 AM EDT eCW1 ([facility] Unknown [address] [facility] [place] [address] 07/28/2020 12:00:00 AM EDT eCW1 ([facility]) Outpatient Attender: Julieta Vasquez MD Main office - [place] 07/18/2020 10:30:00 AM EST MEDENT ([facility]) Unknown [address] [facility] Y [address] 07/15/2020 12:00:00 AM EST eCW1 ([facility]) Unknown [address] [facility] Y [address] 07/15/2020 12:00:00 AM EST eCW1 [facility] Outpatient Attender: Amanda tracy 07/14/2020 10:15:00 AM EST MEDENT ([facility]) Outpatient Attender: HAROON MARCANO-C Darrell/Klaus/[place]/Patricia mcnamara 07/07/2020 12:15:00 PM EST MEDENT ([facility] Unknown [address] [facility] [address] 07/07/2020 12:00:00 AM EST eCW1 [facility]) Unknown [address] [facility] [address] 07/04/2020 12:00:00 AM EST eCW1 ([facility]) (TCM) Transition of Care Visit [address] [place] [address] 06/30/2020 12:00:00 AM EST eCW1 [facility] Unknown [address] [facility] [address] 06/25/2020 12:00:00 AM EST eCW1 ([facility]) Unknown [address] [facility] [address] 06/24/2020 12:00:00 AM EST eCW1 [facility] [place] Outpatient Referrer: [facility] [place] 06/22/2020 0 3:26:00 PM EST Rt facial droop, RLE weakness [facility] Rt facial droop, RLE weakness Unknown [address] [facility] [place] [address] 06/20/2020 12:00:00 AM EST eCW1 ([facility]) Unknown [address] [facility] [place] [address] 06/20/2020 12:00:00 AM EST eCW1 ([facility]) Unknown [address] [facility] [place] [address] 06/20/2020 12:00:00 AM EST eCW1 ([facility]) Outpatient Attender: Amanda tracy 06/17/2020 10:15:00 AM EST MEDENT ([facility]) Unknown [address] [facility] [place] [address] 06/13/2020 12:00:00 AM EST eCW1 ([facility]) Unknown [address] [facility] Y [address] 06/05/2020 12:00:00 AM EST eCW1 ([facility]) Outpatient Attender: Amanda tracy 06/04/2020 07:45:00 AM EST MEDENT ([facility]) Unknown [address] [facility] [place] [address] 06/02/2020 12:00:00 AM EST eCW1 ([facility]) Unknown [address] [facility] [place] [address] 05/26/2020 12:00:00 AM EST eCW1 ([facility]) Unknown [address] [facility] [place] [address] 05/26/2020 12:00:00 AM EST eCW1 ([facility]) Unknown [address] [facility] [place] [address] 05/19/2020 12:00:00 AM EST eCW1 ([facility]) Outpatient [address] [facility] [place] [address] 05/19/2020 12:00:00 AM EST eCW1 ([facility]) Unknown [address] [facility] [place] [address] 05/19/2020 12:00:00 AM EST eCW1 ([facility]) Unknown [address] [facility] [place] [address] 05/13/2020 12:00:00 AM EST eCW1 ([facility]) Unknown [address] [facility] [place] [address] 05/12/2020 12:00:00 AM EST eCW1 ([facility]) Unknown [address] [facility] Y [address] 05/02/2020 12:00:00 AM EST eCW1 ([facility]) Unknown [address] [facility] Y [address] 05/01/2020 12:00:00 AM EST eCW1 ([facility]) Unknown [address] [facility] [place] [address] 05/01/2020 12:00:00 AM EST eCW1 ([facility]) Outpatient [address] [facility] Y [address] 04/21/2020 12:00:00 AM EST eCW1 [facility] Outpatient Attender: NITO mancuso 04/17/2020 09:30:00 AM EST MEDENT ([facility]) [place] [address] [facility] [place] [address] 04/16/2020 12:00:00 AM EST eCW1 ([facility]) Unknown [address] [facility] Y [address] 04/15/2020 12:00:00 AM EST eCW1 ([facility]) Unknown [address] [facility] Y [address] 04/14/2020 12:00:00 AM EST eCW1 ([facility]) Unknown [address] [facility] Y [address] 04/03/2020 12:00:00 AM EST eCW1 ([facility]) Unknown [address] [facility] Y [address] 04/01/2020 12:00:00 AM EST eCW1 ([facility]) Unknown [address] [facility] [place] [address] 03/26/2020 12:00:00 AM EST eCW1 ([facility] Unknown [address] [facility] [place] [address] 03/24/2020 12:00:00 AM EST eCW1 ([facility]) (TCM) Transition of Care Visit [address] [place] [address] 03/17/2020 12:00:00 AM EST eCW1 ([facility]) Unknown [address] [facility] [address] 03/10/2020 12:00:00 AM EDT eCW1 ([facility] Unknown [address] [facility] [address] 03/06/2020 12:00:00 AM EDT eCW1 ([facility] Unknown [address] [facility] [place] [address] 03/06/2020 12:00:00 AM EDT eCW1 ([facility]) Outpatient Attender: TIERNEY MURO MD Physical Therapy 08:00:00 AM EDT MEDENT ([facility]) Unknown [address] [facility] [address] 02/28/2020 12:00:00 AM EDT eCW1 ([facility]) Immunizations Vaccine Date Status Description Data Source(s) COVID-19 VACCINE Moderna 03/26/2021 12:00:00 AM EST completed [facility] Vaccine Series Complete: YESThis Data wa s Submitted to [facility]. COVID-19 VACCINE Moderna 02/23/2021 12:00:00 AM EDT completed [facility] Vaccine Series Complete: NOThis Data was Submitted to [facility]. Medications Medication Brand Name Start Date Product Form Dose Route Admi nistrative Instructions Pharmacy Instructions Status Indications Reaction Description Data Source(s) tramadol hydrochloride 50 MG Oral Tablet traMADol HCl 50 MG traMADol HCl 50 MG 04/01/2021 12:00:00 AM EST 1.0 {tablet_as_needed} active traMADol HCl 50 MG eCW1 ([facility]) tramadol hydrochloride 50 MG Oral Tablet traMADol HCl 50 MG traMADol HCl 50 MG 04/01/2021 12:00:00 AM EST 1.0 {tablet_as_needed} ac tive eCW1 ([facility]) 50 mg 04/01/2021 12:00:00 AM EST tablet 30 TAKE ONE TABLET BY MOUTH ONCE DAILY NEEDED MAXIMUM DAILY DOSE = 1 TABLET TAKE ONE TABLET BY MOUTH ONCE DAILY NEEDED MAXIMUM DAILY DOSE = 1 TABLET SOLD: 04/02/2021 [facility] tramadol hydrochloride 50 MG Oral Tablet traMADol HCl 50 MG traMADol HCl 50 MG 04/01/2021 12:00:00 AM EST 1.0 {tablet_as_needed} active traMADol HCl 50 MG eCW1 ([facility]) tramadol hydrochloride 50 MG Oral Tablet traMADol HCl 50 MG traMADol HCl 50 MG 04/01/2021 12:00:00 AM EST 1.0 {tablet_as_needed} active traMADol HCl 50 MG eCW1 ([facility]) 10 mg 03/30/2021 12:00:00 AM EST tablet [...] EST 1.0 {patch_to_skin} active eCW1 ([facility]) 168 HR Buprenorphine 0.01 MG/HR Transdermal Patch [BuT rans] Butrans 10 MCG/HR Butrans 10 MCG/HR 03/30/2021 12:00:00 AM EST 1.0 {patch_to_skin} active Butrans 10 MCG/HR eCW1 ([facility]) 168 HR Buprenorphine 0.01 MG/HR Transdermal Patch [BuT rans] Butrans 10 MCG/HR Butrans 10 MCG/HR 03/30/2021 12:00:00 AM EST 1.0 {patch_to_skin} active eCW1 ([facility]) 168 HR Buprenorphine 0.01 MG/HR Transdermal Patch [BuT rans] Butrans 10 MCG/HR Butrans 10 MCG/HR 03/30/2021 12:00:00 AM EST 1.0 {patch_to_skin} active Butrans 10 MCG/HR eCW1 ([facility]) 168 HR Buprenorphine 0.01 MG/HR Transdermal Patch [BuT rans] Butrans 10 MCG/HR Butrans 10 MCG/HR 03/30/2021 12:00:00 AM EST 1.0 {patch_to_skin} active eCW1 ([facility]) 168 HR Buprenorphine 0.01 MG/HR Transdermal Patch [BuT rans] Butrans 10 MCG/HR Butrans 10 MCG/HR 03/30/2021 12:00:00 AM EST 1.0 {patch_to_skin} active Butrans 10 MCG/HR eCW1 ([facility]) montelukast 10 MG Oral Tablet MONTELUKAST SODIUM 03/28/2021 12:0 0:00 AM EST tablet 30 TAKE ONE TABLET BY MOUTH AT BEDT BEV TAKE ONE TABLET BY MOUTH AT BEDTIME SOLD: 03/29/2021 [facility] tramadol hydrochloride 50 MG Oral Tablet traMADol HCl 50 MG traMADol HCl 50 MG 03/27/2021 12:00:00 AM EST 1.0 {tablet_as_needed} active traMADol HCl 50 MG eCW1 ([facility]) tramadol hydrochloride 50 MG Oral Tablet traMADol HCl 50 MG traMADol HCl 50 MG 03/27/2021 12:00:00 AM EST 1.0 {tablet_as_needed} active traMADol HCl 50 MG eCW1 ([facility]) 100 mcg/0.5 mL 03/26/2021 12:00:00 AM EST suspension 0 INJECT DIRECTED PER STANDING ORDER INJECT DIRECTED PER STANDING ORDER SOLD: 03/26/2021 [facility] 24 HR tramadol hydrochloride 100 MG Exte nded Release Oral Tablet traMADol HCl ER 100 MG traMADol HCl ER 100 MG 03/25/2021 12:00:00 AM EST active traMADol HCl ER 100 MG eCW1 ([facility]) 24 HR tramadol hydrochloride 100 MG Exte nded Release Oral Tablet traMADol HCl ER 100 MG traMADol HCl ER 100 MG 03/25/2021 12:00:00 AM EST active traMADol HCl ER 100 MG eCW1 ([facility]) [facility] 75 MCG [facility] 75 MCG 03/24/2021 12:00:00 AM EST active eCW1 ([facility]) [place] 75 MCG [facility] 75 MCG 03/24/2021 12:00:00 AM EST active eCW1 ([facility]) [place] 75 MCG [place] 75 MCG 03/24/2021 12:00:00 AM EST active [place] 75 MCG eCW1 ([facility]) [place] 75 MCG [place] 75 MCG 03/24/2021 12:00:00 AM EST active [place] 75 MCG eCW1 ([facility]) [place] 75 MCG [place] 75 MCG 03/24/2021 12:00:00 AM EST active [place] 75 MCG eCW1 ([facility]) [place]uca 75 MCG [place] 75 MCG 03/24/2021 12:00:00 AM EST active [place] 75 MCG eCW1 ([facility]) Bel[place]uca 75 MCG [place] 75 MCG 03/24/2021 12:00:00 AM EST active [place] 75 MCG eCW1 ([facility]) [place] 75 MCG [place] 75 MCG 03/24/2021 12:00:00 AM EST active [place] 75 MCG eCW1 ([facility]) [place] 75 MCG [place] 75 MCG 03/24/2021 12:00:00 AM EST active eCW1 ([facility]) [place] 75 MCG [place] 75 MCG 03/24/2021 12:00:00 AM EST active [place] 75 MCG eCW1 ([facility]) 4 mg 03/20/2021 12:00:00 AM EDT tablet [...] Medications 03/05/2021 12:00:00 AM EDT active MEDENT ([facility]) 10 mg 02/24/2021 12:00:00 [...] {tablet_as_needed} active traMADol HCl 50 MG eCW1 (On License Of [facility]) tramadol hydrochloride 50 MG Oral Tablet traMADol HCl 50 MG traMADol HCl 50 MG 02/20/2021 12:00:00 AM EDT 1.0 {tablet_as_needed} active traMADol HCl 50 MG eCW1 (On License Of [facility]) tramadol hydrochloride 50 MG Oral Tablet traMADol HCl 50 MG traMADol HCl 50 MG 02/20/2021 12:00:00 AM EDT 1.0 {tablet_as_needed} ac tive eCW1 (On License Of [facility]) tramadol hydrochloride 50 MG Oral Tablet traMADol HCl 50 MG traMADol HCl 50 MG 02/20/2021 12:00:00 AM EDT 1.0 {tablet_as_needed} active traMADol HCl 50 MG eCW1 (On License Of [facility]) tramadol hydrochloride 50 MG Oral Tablet traMADol HCl 50 MG traMADol HCl 50 MG 02/20/2021 12:00:00 AM EDT 1.0 {tablet_as_needed} active traMADol HCl 50 MG eCW1 (On License Of [facility]) tramadol hydrochloride 50 MG Oral Tablet traMADol HCl 50 MG traMADol HCl 50 MG 02/20/2021 12:00:00 AM EDT 1.0 {tablet_as_needed} active traMADol HCl 50 MG eCW1 (On License Of [facility]) Liraglutide 18 MG/3ML UNK 02/19/2021 12:00:00 AM EDT active eCW1 (On License Of [facility]) Liraglutide 18 MG/3ML UNK 02/19/2021 12:00:00 AM EDT active Liraglutide 18 MG/3ML eCW1 (On License Of [facility]) Liraglutide 18 MG/3ML UNK 02/19/2021 12:00:00 AM EDT active Liraglutide 18 MG/3ML eCW1 (On License Of [facility]) Liraglutide 18 MG/3ML UNK 02/19/2021 12:00:00 AM EDT active Liraglutide 18 MG/3ML eCW1 (On License Of [facility]) Liraglutide 18 MG/3ML UNK 02/19/2021 12:00:00 AM EDT active Liraglutide 18 MG/3ML eCW1 (On License Of [facility]) Liraglutide 18 MG/3ML UNK 02/19/2021 12:00:00 AM EDT active Liraglutide 18 MG/3ML eCW1 (On License Of [facility]) Liraglutide 18 MG/3ML UNK 02/19/2021 12:00:00 AM EDT active Liraglutide 18 MG/3ML eCW1 (On License Of [facility]) Liraglutide 18 MG/3ML UNK 02/19/2021 12:00:00 AM EDT active Liraglutide 18 MG/3ML eCW1 (On License Of [facility]) Belbuca 75 MCG Belbuca 75 MCG 02/19/2021 12:00:00 AM EDT active Belbuca 75 MCG eCW1 (On License Of [facility]) Liraglutide 18 MG/3ML UNK 02/19/2021 12:00:00 AM EDT active Liraglutide 18 MG/3ML eCW1 (On License Of [facility]) Liraglutide 18 MG/3ML UNK 02/19/2021 12:00:00 AM EDT active eCW1 (On License Of [facility]) Liraglutide 18 MG/3ML UNK 02/19/2021 12:00:00 AM EDT active Liraglutide 18 MG/3ML eCW1 (On License Of [facility]) Liraglutide 18 MG/3ML UNK 02/19/2021 12:00:00 AM EDT active Liraglutide 18 MG/3ML eCW1 (On License Of [facility]) Liraglutide 18 MG/3ML UNK 02/19/2021 12:00:00 AM EDT active eCW1 (On License Of [facility]) Liraglutide 18 MG/3ML UNK 02/19/2021 12:00:00 AM EDT active eCW1 (On License Of [facility]) Liraglutide 18 MG/3ML UNK 02/19/2021 12:00:00 AM EDT active Liraglutide 18 MG/3ML eCW1 (On License Of [facility]) Liraglutide 18 MG/3ML UNK 02/19/2021 12:00:00 AM EDT active Liraglutide 18 MG/3ML eCW1 (On License Of [facility]) Liraglutide 18 MG/3ML UNK 02/19/2021 12:00:00 AM EDT active Liraglutide 18 MG/3ML eCW1 (On License Of [facility]) 75 mg 02/18/2021 12:00:00 AM EDT tablet [...] Medications 12/18/2020 12:00:00 AM EDT completed [facility] ([facility]) Divalproex Sodium 250 MG Delayed Release Oral Tablet Divalpr oex Sodium 12/18/2020 12:00:00 AM EDT ORAL completed [facility] ([facility]) Acetaminophen 325 MG / [...] acti ve Nortriptyline HCl 25 MG eCW1 (On License Of [facility]) Nortriptyline 25 MG Oral Capsule Nortriptyline HCl 25 MG Nortriptyline HCl 25 MG 11/11/2020 12:00:00 AM EDT 1.0 {capsule} acti ve Nortriptyline HCl 25 MG eCW1 (On License Of [facility]) Nortriptyline 25 MG Oral Capsule Nortriptyline HCl 25 MG Nortriptyline HCl 25 MG 11/11/2020 12:00:00 AM EDT 1.0 {capsule} susp ended Nortriptyline HCl 25 MG eCW1 (On License Of [facility]) Nortriptyline 25 MG Oral Capsule Nortriptyline HCl 25 MG Nortriptyline HCl 25 MG 11/11/2020 12:00:00 AM EDT 1.0 {capsule} acti ve Nortriptyline HCl 25 MG eCW1 (On License Of [facility]) 25 mg 11/11/2020 12:00:00 AM EDT capsule 30 TAKE ONE CAPSULE BY MOUTH EVERY DAY IN THE MORNING TAKE ONE CAPSULE BY MOUTH EVERY DAY IN THE MORNING [facility] Nortriptyline 25 MG Oral Capsule Nortriptyline HCl 25 MG Nortriptyline HCl 25 MG 11/11/2020 12:00:00 AM EDT 1.0 {capsule} acti ve Nortriptyline HCl 25 MG eCW1 (On License Of [facility]) Nortriptyline 25 MG Oral Capsule Nortriptyline HCl 25 MG Nortriptyline HCl 25 MG 11/11/2020 12:00:00 AM EDT 1.0 {capsule} susp ended Nortriptyline HCl 25 MG eCW1 (On License Of [facility]) Nortriptyline 25 MG Oral Capsule Nortriptyline HCl 25 MG Nortriptyline HCl 25 MG 11/11/2020 12:00:00 AM EDT 1.0 {capsule} acti ve Nortriptyline HCl 25 MG eCW1 (On License Of [facility]) Nortriptyline 25 MG Oral Capsule Nortriptyline HCl 25 MG Nortriptyline HCl 25 MG 11/11/2020 12:00:00 AM EDT 1.0 {capsule} acti ve Nortriptyline HCl 25 MG eCW1 (On License Of [facility]) Nortriptyline 25 MG Oral Capsule Nortriptyline HCl 25 MG Nortriptyline HCl 25 MG 11/11/2020 12:00:00 AM EDT 1.0 {capsule} acti ve Nortriptyline HCl 25 MG eCW1 (On License Of [facility]) Nortriptyline 25 MG Oral Capsule Nortriptyline HCl 25 MG Nortriptyline HCl 25 MG 11/11/2020 12:00:00 AM EDT 1.0 {capsule} acti ve Nortriptyline HCl 25 MG eCW1 (On License Of [facility]) Nortriptyline 25 MG Oral Capsule Nortriptyline HCl 25 MG Nortriptyline HCl 25 MG 11/11/2020 12:00:00 AM EDT 1.0 {capsule} acti ve Nortriptyline HCl 25 MG eCW1 (On License Of [facility]) Nortriptyline 25 MG Oral Capsule Nortriptyline HCl 25 MG Nortriptyline HCl 25 MG 11/11/2020 12:00:00 AM EDT 1.0 {capsule} acti ve Nortriptyline HCl 25 MG eCW1 (On License Of [facility]) Chlorthalidone 25 MG Oral Tablet Chlorthalidone 25 MG 2020 12:00:00 AM EDT 1.0 {tablet_in_the_morning_with_food} active Chlorthalidone 25 MG eCW1 (On License Of [facility]) Chlorthalidone 25 MG Oral Tablet CHLORTHALIDONE 11/06/2020 12:0 0:00 AM EDT tablet 90 TAKE ONE TABLET BY MOUTH EVERY D AY IN THE MORNING WITH FOOD TAKE ONE TABLET BY MOUTH EVERY DAY IN THE MORNING WITH FOOD SOLD: 03/29/2021 [facility] Chlorthalidone 25 MG Oral Tablet Chlorthalidone 25 MG 2020 12:00:00 AM EDT 1.0 {tablet_in_the_morning_with_food} active Chlorthalidone 25 MG eCW1 (On License Of [facility]) Chlorthalidone 25 MG Oral Tablet Chlorthalidone 25 MG 2020 12:00:00 AM EDT 1.0 {tablet_in_the_morning_with_food} active Chlorthalidone 25 MG eCW1 (On License Of [facility]) Chlorthalidone 25 MG Oral Tablet Chlorthalidone 25 MG 2020 12:00:00 AM EDT 1.0 {tablet_in_the_morning_with_food} active Chlorthalidone 25 MG eCW1 (On License Of [facility]) Chlorthalidone 25 MG Oral Tablet Chlorthalidone 25 MG 2020 12:00:00 AM EDT 1.0 {tablet_in_the_morning_with_food} active Chlorthalidone 25 MG eCW1 (On License Of [facility]) Chlorthalidone 25 MG Oral Tablet Chlorthalidone 25 MG 2020 12:00:00 AM EDT 1.0 {tablet_in_the_morning_with_food} active Chlorthalidone 25 MG eCW1 (On License Of [facility]) Chlorthalidone 25 MG Oral Tablet Chlorthalidone 25 MG 2020 12:00:00 AM EDT 1.0 {tablet_in_the_morning_with_food} active Chlorthalidone 25 MG eCW1 (On License Of [facility]) Chlorthalidone 25 MG Oral Tablet Chlorthalidone 25 MG 2020 12:00:00 AM EDT 1.0 {tablet_in_the_morning_with_food} active Chlorthalidone 25 MG eCW1 (On License Of [facility]) Chlorthalidone 25 MG Oral Tablet Chlorthalidone 25 MG 2020 12:00:00 AM EDT 1.0 {tablet_in_the_morning_with_food} active Chlorthalidone 25 MG eCW1 (On License Of [facility]) Chlorthalidone 25 MG Oral Tablet Chlorthalidone 25 MG 2020 12:00:00 AM EDT 1.0 {tablet_in_the_morning_with_food} active Chlorthalidone 25 MG eCW1 (On License Of [facility]) Chlorthalidone 25 MG Oral Tablet Chlorthalidone 25 MG 2020 12:00:00 AM EDT 1.0 {tablet_in_the_morning_with_food} active Chlorthalidone 25 MG eCW1 (On License Of [facility]) Chlorthalidone 25 MG Oral Tablet Chlorthalidone 25 MG 2020 12:00:00 AM EDT 1.0 {tablet_in_the_morning_with_food} active Chlorthalidone 25 MG eCW1 (On License Of [facility]) Chlorthalidone 25 MG Oral Tablet Chlorthalidone 25 MG 2020 12:00:00 AM EDT 1.0 {tablet_in_the_morning_with_food} active Chlorthalidone 25 MG eCW1 (On License Of [facility]) 25 mcg 11/06/2020 12:00:00 AM EDT tablet [...] 1.0 {tablet_in_the_morning_with_food} active Chlorthalidone 25 MG eCW1 (On License Of [facility]) carvedilol 12.5 MG Oral Tablet CARVEDILOL 11/06/2020 [...] 1.0 {tablet_in_the_morning_with_food} active Chlorthalidone 25 MG eCW1 (On License Of [facility]) 75 mg 10/16/2020 12:00:00 AM EDT tablet [...] 10.0 {ml_on_an_empty_stomach} suspended Carafate 1 GM/10ML eCW1 ([facility]) Sucralfate 100 MG/ML Oral Suspension [Carafate] Carafa te 1 GM/10ML Carafate 1 GM/10ML 08/19/2020 12:00:00 AM EDT 10.0 {ml_on_an_empty_stomach} active Carafate 1 GM/10ML eCW1 ([facility]) Paroxetine HCl 10 MG Paroxetine HCl 10 MG 08/19/2020 12:00:00 AM ED T 1.0 {tablet_in_the_morning} active Paroxeti ne HCl 10 MG eCW1 (On License Of [facility]) Sucralfate 100 MG/ML Oral Suspension [Carafate] Carafa te 1 GM/10ML Carafate 1 GM/10ML 08/19/2020 12:00:00 AM EDT 10.0 {ml_on_an_empty_stomach} active Carafate 1 GM/10ML eCW1 ([facility]) Sucralfate 100 MG/ML Oral Suspension [Carafate] Carafa te 1 GM/10ML Carafate 1 GM/10ML 08/19/2020 12:00:00 AM EDT 10.0 {ml_on_an_empty_stomach} active Carafate 1 GM/10ML eCW1 ([facility]) Sucralfate 100 MG/ML Oral Suspension [Carafate] Carafa te 1 GM/10ML Carafate 1 GM/10ML 08/19/2020 12:00:00 AM EDT 10.0 {ml_on_an_empty_stomach} active Carafate 1 GM/10ML eCW1 ([facility]) PARoxetine HCl 10 MG PARoxetine HCl 10 MG 08/19/2020 12:00:00 AM ED T 1.0 {tablet_in_the_morning} active PARoxeti ne HCl 10 MG eCW1 (On License Of [facility]) Sucralfate 100 MG/ML Oral Suspension [Carafate] Carafa te 1 GM/10ML Carafate 1 GM/10ML 08/19/2020 12:00:00 AM EDT 10.0 {ml_on_an_empty_stomach} active Carafate 1 GM/10ML eCW1 ([facility]) Sucralfate 100 MG/ML Oral Suspension [Carafate] Carafa te 1 GM/10ML Carafate 1 GM/10ML 08/19/2020 12:00:00 AM EDT 10.0 {ml_on_an_empty_stomach} active Carafate 1 GM/10ML eCW1 ([facility]) lansoprazole 30 MG Delayed Release Oral Capsule Lansop razole 30 MG Lansoprazole 30 MG 08/19/2020 12:00:00 AM EDT 1.0 {capsule_before_a_meal} active Lansoprazole 30 MG eCW1 (On License Of [facility]) lansoprazole 30 MG Delayed Release Oral Capsule Lansop razole 30 MG Lansoprazole 30 MG 08/19/2020 12:00:00 AM EDT 1.0 {capsule_before_a_meal} active Lansoprazole 30 MG eCW1 (On License Of [facility]) Sucralfate 100 MG/ML Oral Suspension [Carafate] Carafa te 1 GM/10ML Carafate 1 GM/10ML 08/19/2020 12:00:00 AM EDT 10.0 {ml_on_an_empty_stomach} active Carafate 1 GM/10ML eCW1 ([facility]) Sucralfate 100 MG/ML Oral Suspension [Carafate] Carafa te 1 GM/10ML Carafate 1 GM/10ML 08/19/2020 12:00:00 AM EDT 10.0 {ml_on_an_empty_stomach} active Carafate 1 GM/10ML eCW1 ([facility]) PARoxetine HCl 10 MG PARoxetine HCl 10 MG 08/19/2020 12:00:00 AM ED T 1.0 {tablet_in_the_morning} suspended PARoxe dylan HCl 10 MG eCW1 (On License Of [facility]) lansoprazole 30 MG Delayed Release Oral Capsule Lansop razole 30 MG Lansoprazole 30 MG 08/19/2020 12:00:00 AM EDT 1.0 {capsule_before_a_meal} active eCW1 (On License Of [facility]) Sucralfate 100 MG/ML Oral Suspension [Carafate] Carafa te 1 GM/10ML Carafate 1 GM/10ML 08/19/2020 12:00:00 AM EDT 10.0 {ml_on_an_empty_stomach} active Carafate 1 GM/10ML eCW1 ([facility]) Sucralfate 100 MG/ML Oral Suspension [Carafate] Carafa te 1 GM/10ML Carafate 1 GM/10ML 08/19/2020 12:00:00 AM EDT 10.0 {ml_on_an_empty_stomach} active Carafate 1 GM/10ML eCW1 ([facility]) Paroxetine HCl 10 MG Paroxetine HCl 10 MG 08/19/2020 12:00:00 AM ED T 1.0 {tablet_in_the_morning} active Paroxeti ne HCl 10 MG eCW1 (On License Of [facility]) lansoprazole 30 MG Delayed Release Oral Capsule Lansop razole 30 MG Lansoprazole 30 MG 08/19/2020 12:00:00 AM EDT 1.0 {capsule_before_a_meal} active eCW1 (On License Of [facility]) PARoxetine HCl 10 MG PARoxetine HCl 10 MG 08/19/2020 12:00:00 AM ED T 1.0 {tablet_in_the_morning} active PARoxeti ne HCl 10 MG eCW1 (On License Of [facility]) lansoprazole 30 MG Delayed Release Oral Capsule Lansop razole 30 MG Lansoprazole 30 MG 08/19/2020 12:00:00 AM EDT 1.0 {capsule_before_a_meal} active eCW1 (On License Of [facility]) lansoprazole 30 MG Delayed Release Oral Capsule Lansop razole 30 MG Lansoprazole 30 MG 08/19/2020 12:00:00 AM EDT 1.0 {capsule_before_a_meal} active Lansoprazole 30 MG eCW1 (On License Of [facility]) PARoxetine HCl 10 MG PARoxetine HCl 10 MG 08/19/2020 12:00:00 AM ED T 1.0 {tablet_in_the_morning} active PARoxeti ne HCl 10 MG eCW1 (On License Of [facility]) Paroxetine HCl 10 MG Paroxetine HCl 10 MG 08/19/2020 12:00:00 AM ED T 1.0 {tablet_in_the_morning} active Paroxeti ne HCl 10 MG eCW1 (On License Of [facility]) lansoprazole 30 MG Delayed Release Oral Capsule Lansop razole 30 MG Lansoprazole 30 MG 08/19/2020 12:00:00 AM EDT 1.0 {capsule_before_a_meal} active Lansoprazole 30 MG eCW1 (On License Of [facility]) lansoprazole 30 MG Delayed Release Oral Capsule Lansop razole 30 MG Lansoprazole 30 MG 08/19/2020 12:00:00 AM EDT 1.0 {capsule_before_a_meal} active Lansoprazole 30 MG eCW1 (On License Of [facility]) PARoxetine HCl 10 MG PARoxetine HCl 10 MG 08/19/2020 12:00:00 AM ED T 1.0 {tablet_in_the_morning} active PARoxeti ne HCl 10 MG eCW1 (On License Of [facility]) Sucralfate 100 MG/ML Oral Suspension [Carafate] Carafa te 1 GM/10ML Carafate 1 GM/10ML 08/19/2020 12:00:00 AM EDT 10.0 {ml_on_an_empty_stomach} active Carafate 1 GM/10ML eCW1 ([facility]) PARoxetine HCl 10 MG PARoxetine HCl 10 MG 08/19/2020 12:00:00 AM ED T 1.0 {tablet_in_the_morning} active PARoxeti ne HCl 10 MG eCW1 (On License Of [facility]) Sucralfate 100 MG/ML Oral Suspension [Carafate] Carafa te 1 GM/10ML Carafate 1 GM/10ML 08/19/2020 12:00:00 AM EDT 10.0 {ml_on_an_empty_stomach} active Carafate 1 GM/10ML eCW1 ([facility]) PARoxetine HCl 10 MG PARoxetine HCl 10 MG 08/19/2020 12:00:00 AM ED T 1.0 {tablet_in_the_morning} active PARoxeti ne HCl 10 MG eCW1 (On License Of [facility]) lansoprazole 30 MG Delayed Release Oral Capsule Lansop razole 30 MG Lansoprazole 30 MG 08/19/2020 12:00:00 AM EDT 1.0 {capsule_before_a_meal} active Lansoprazole 30 MG eCW1 (On License Of [facility]) lansoprazole 30 MG Delayed Release Oral Capsule Lansop razole 30 MG Lansoprazole 30 MG 08/19/2020 12:00:00 AM EDT 1.0 {capsule_before_a_meal} active Lansoprazole 30 MG eCW1 (On License Of [facility]) lansoprazole 30 MG Delayed Release Oral Capsule Lansop razole 30 MG Lansoprazole 30 MG 08/19/2020 12:00:00 AM EDT 1.0 {capsule_before_a_meal} active Lansoprazole 30 MG eCW1 (On License Of [facility]) lansoprazole 30 MG Delayed Release Oral Capsule Lansop razole 30 MG Lansoprazole 30 MG 08/19/2020 12:00:00 AM EDT 1.0 {capsule_before_a_meal} active Lansoprazole 30 MG eCW1 (On License Of [facility]) lansoprazole 30 MG Delayed Release Oral Capsule Lansop razole 30 MG Lansoprazole 30 MG 08/19/2020 12:00:00 AM EDT 1.0 {capsule_before_a_meal} active Lansoprazole 30 MG eCW1 (On License Of [facility]) PARoxetine HCl 10 MG PARoxetine HCl 10 MG 08/19/2020 12:00:00 AM ED T 1.0 {tablet_in_the_morning} active PARoxeti ne HCl 10 MG eCW1 (On License Of [facility]) lansoprazole 30 MG Delayed Release Oral Capsule Lansop razole 30 MG Lansoprazole 30 MG 08/19/2020 12:00:00 AM EDT 1.0 {capsule_before_a_meal} active Lansoprazole 30 MG eCW1 (On License Of [facility]) lansoprazole 30 MG Delayed Release Oral Capsule Lansop razole 30 MG Lansoprazole 30 MG 08/19/2020 12:00:00 AM EDT 1.0 {capsule_before_a_meal} active Lansoprazole 30 MG eCW1 (On License Of [facility]) lansoprazole 30 MG Delayed Release Oral Capsule Lansop razole 30 MG Lansoprazole 30 MG 08/19/2020 12:00:00 AM EDT 1.0 {capsule_before_a_meal} active Lansoprazole 30 MG eCW1 (On License Of [facility]) lansoprazole 30 MG Delayed Release Oral Capsule Lansop razole 30 MG Lansoprazole 30 MG 08/19/2020 12:00:00 AM EDT 1.0 {capsule_before_a_meal} active Lansoprazole 30 MG eCW1 (On License Of [facility]) Sucralfate 100 MG/ML Oral Suspension [Carafate] Carafa te 1 GM/10ML Carafate 1 GM/10ML 08/19/2020 12:00:00 AM EDT 10.0 {ml_on_an_empty_stomach} active Carafate 1 GM/10ML eCW1 ([facility]) lansoprazole 30 MG Delayed Release Oral Capsule Lansop razole 30 MG Lansoprazole 30 MG 08/19/2020 12:00:00 AM EDT 1.0 {capsule_before_a_meal} active eCW1 (On License Of [facility]) PARoxetine HCl 10 MG PARoxetine HCl 10 MG 08/19/2020 12:00:00 AM ED T 1.0 {tablet_in_the_morning} active PARoxeti ne HCl 10 MG eCW1 (On License Of [facility]) lansoprazole 30 MG Delayed Release Oral Capsule Lansop razole 30 MG Lansoprazole 30 MG 08/19/2020 12:00:00 AM EDT 1.0 {capsule_before_a_meal} active Lansoprazole 30 MG eCW1 (On License Of [facility]) lansoprazole 30 MG Delayed Release Oral Capsule Lansop razole 30 MG Lansoprazole 30 MG 08/19/2020 12:00:00 AM EDT 1.0 {capsule_before_a_meal} active Lansoprazole 30 MG eCW1 (On License Of [facility]) lansoprazole 30 MG Delayed Release Oral Capsule Lansop razole 30 MG Lansoprazole 30 MG 08/19/2020 12:00:00 AM EDT 1.0 {capsule_before_a_meal} active Lansoprazole 30 MG eCW1 (On License Of [facility]) lansoprazole 30 MG Delayed Release Oral Capsule Lansop razole 30 MG Lansoprazole 30 MG 08/19/2020 12:00:00 AM EDT 1.0 {capsule_before_a_meal} active Lansoprazole 30 MG eCW1 (On License Of [facility]) lansoprazole 30 MG Delayed Release Oral Capsule Lansop razole 30 MG Lansoprazole 30 MG 08/19/2020 12:00:00 AM EDT 1.0 {capsule_before_a_meal} active Lansoprazole 30 MG eCW1 (On License Of [facility]) Sucralfate 100 MG/ML Oral Suspension [Carafate] Carafa te 1 GM/10ML Carafate 1 GM/10ML 08/19/2020 12:00:00 AM EDT 10.0 {ml_on_an_empty_stomach} active Carafate 1 GM/10ML eCW1 ([facility]) lansoprazole 30 MG Delayed Release Oral Capsule Lansop razole 30 MG Lansoprazole 30 MG 08/19/2020 12:00:00 AM EDT 1.0 {capsule_before_a_meal} active Lansoprazole 30 MG eCW1 (On License Of [facility]) Sucralfate 100 MG/ML Oral Suspension [Carafate] Carafa te 1 GM/10ML Carafate 1 GM/10ML 08/19/2020 12:00:00 AM EDT 10.0 {ml_on_an_empty_stomach} active Carafate 1 GM/10ML eCW1 ([facility]) Paroxetine HCl 10 MG Paroxetine HCl 10 MG 08/19/2020 12:00:00 AM ED T 1.0 {tablet_in_the_morning} active Paroxeti ne HCl 10 MG eCW1 (On License Of [facility]) PARoxetine HCl 10 MG PARoxetine HCl 10 MG 08/19/2020 12:00:00 AM ED T 1.0 {tablet_in_the_morning} active PARoxeti ne HCl 10 MG eCW1 (On License Of [facility]) PARoxetine HCl 10 MG PARoxetine HCl 10 MG 08/19/2020 12:00:00 AM ED T 1.0 {tablet_in_the_morning} active PARoxeti ne HCl 10 MG eCW1 (On License Of [facility]) lansoprazole 30 MG Delayed Release Oral Capsule Lansop razole 30 MG Lansoprazole 30 MG 08/19/2020 12:00:00 AM EDT 1.0 {capsule_before_a_meal} active Lansoprazole 30 MG eCW1 (On [facility] Of [facility]) lansoprazole 30 MG Delayed Release Oral Capsule Lansop razole 30 MG Lansoprazole 30 MG 08/19/2020 12:00:00 AM EDT 1.0 {capsule_before_a_meal} active Lansoprazole 30 MG eCW1 (On [facility] Of [facility]) lansoprazole 30 MG Delayed Release Oral Capsule Lansop razole 30 MG Lansoprazole 30 MG 08/19/2020 12:00:00 AM EDT 1.0 {capsule_before_a_meal} active Lansoprazole 30 MG eCW1 (On License Of [facility]) Sucralfate 100 MG/ML Oral Suspension [Carafate] Carafa te 1 GM/10ML Carafate 1 GM/10ML 08/19/2020 12:00:00 AM EDT 10.0 {ml_on_an_empty_stomach} active Carafate 1 GM/10ML eCW1 ([facility]) lansoprazole 30 MG Delayed Release Oral Capsule Lansop razole 30 MG Lansoprazole 30 MG 08/19/2020 12:00:00 AM EDT 1.0 {capsule_before_a_meal} active Lansoprazole 30 MG eCW1 (On [facility] Of [facility]) lansoprazole 30 MG Delayed Release Oral Capsule Lansop razole 30 MG Lansoprazole 30 MG 08/19/2020 12:00:00 AM EDT 1.0 {capsule_before_a_meal} active Lansoprazole 30 MG eCW1 (On [facility] Of [facility]) lansoprazole 30 MG Delayed Release Oral Capsule Lansop razole 30 MG Lansoprazole 30 MG 08/19/2020 12:00:00 AM EDT 1.0 {capsule_before_a_meal} active Lansoprazole 30 MG eCW1 (On [facility] Of [facility]) Sucralfate 100 MG/ML Oral Suspension [Carafate] Carafa te 1 GM/10ML Carafate 1 GM/10ML 08/19/2020 12:00:00 AM EDT 10.0 {ml_on_an_empty_stomach} suspended Carafate 1 GM/10ML eCW1 ([facility]) PARoxetine HCl 10 MG PARoxetine HCl 10 MG 08/19/2020 12:00:00 AM ED T 1.0 {tablet_in_the_morning} active PARoxeti ne HCl 10 MG eCW1 (On License Of [facility]) Paroxetine HCl 10 MG Paroxetine HCl 10 MG 08/19/2020 12:00:00 AM ED T 1.0 {tablet_in_the_morning} active Paroxeti ne HCl 10 MG eCW1 (On License Of [facility]) PARoxetine HCl 10 MG PARoxetine HCl 10 MG 08/19/2020 12:00:00 AM ED T 1.0 {tablet_in_the_morning} suspended PARoxe dylan HCl 10 MG eCW1 (On License Of [facility]) Sucralfate 100 MG/ML Oral Suspension [Carafate] Carafa te 1 GM/10ML Carafate 1 GM/10ML 08/19/2020 12:00:00 AM EDT 10.0 {ml_on_an_empty_stomach} active Carafate 1 GM/10ML eCW1 ([facility]) lansoprazole 30 MG Delayed Release Oral Capsule Lansop razole 30 MG Lansoprazole 30 MG 08/19/2020 12:00:00 AM EDT 1.0 {capsule_before_a_meal} active Lansoprazole 30 MG eCW1 (On [facility] Of [facility]) lansoprazole 30 MG Delayed Release Oral Capsule Lansop razole 30 MG Lansoprazole 30 MG 08/19/2020 12:00:00 AM EDT 1.0 {capsule_before_a_meal} active Lansoprazole 30 MG eCW1 (On License Of [facility]) lansoprazole 30 MG Delayed Release Oral Capsule Lansop razole 30 MG Lansoprazole 30 MG 08/19/2020 12:00:00 AM EDT 1.0 {capsule_before_a_meal} active Lansoprazole 30 MG eCW1 (On License Of [facility]) lansoprazole 30 MG Delayed Release Oral Capsule Lansop razole 30 MG Lansoprazole 30 MG 08/19/2020 12:00:00 AM EDT 1.0 {capsule_before_a_meal} active Lansoprazole 30 MG eCW1 (On [facility] Of [facility]) Sucralfate 100 MG/ML Oral Suspension [Carafate] Carafa te 1 GM/10ML Carafate 1 GM/10ML 08/19/2020 12:00:00 AM EDT 10.0 {ml_on_an_empty_stomach} active Carafate 1 GM/10ML eCW1 ([facility]) lansoprazole 30 MG Delayed Release Oral Capsule Lansop razole 30 MG Lansoprazole 30 MG 08/19/2020 12:00:00 AM EDT 1.0 {capsule_before_a_meal} active Lansoprazole 30 MG eCW1 (On License Of [facility]) Sucralfate 100 MG/ML Oral Suspension [Carafate] Carafa te 1 GM/10ML Carafate 1 GM/10ML 08/19/2020 12:00:00 AM EDT 10.0 {ml_on_an_empty_stomach} active Carafate 1 GM/10ML eCW1 ([facility]) Paroxetine HCl 10 MG Paroxetine HCl 10 MG 08/19/2020 12:00:00 AM ED T 1.0 {tablet_in_the_morning} active Paroxeti ne HCl 10 MG eCW1 (On License Of [facility]) lansoprazole 30 MG Delayed Release Oral Capsule Lansop razole 30 MG Lansoprazole 30 MG 08/19/2020 12:00:00 AM EDT 1.0 {capsule_before_a_meal} active Lansoprazole 30 MG eCW1 (On License Of [facility]) PARoxetine HCl 10 MG PARoxetine HCl 10 MG 08/19/2020 12:00:00 AM ED T 1.0 {tablet_in_the_morning} active PARoxeti ne HCl 10 MG eCW1 (On License Of [facility]) lansoprazole 30 MG Delayed Release Oral Capsule Lansop razole 30 MG Lansoprazole 30 MG 08/19/2020 12:00:00 AM EDT 1.0 {capsule_before_a_meal} active Lansoprazole 30 MG eCW1 (On License Of [facility]) Sucralfate 100 MG/ML Oral Suspension [Carafate] Carafa te 1 GM/10ML Carafate 1 GM/10ML 08/19/2020 12:00:00 AM EDT 10.0 {ml_on_an_empty_stomach} active Carafate 1 GM/10ML eCW1 ([facility]) PARoxetine HCl 10 MG PARoxetine HCl 10 MG 08/19/2020 12:00:00 AM ED T 1.0 {tablet_in_the_morning} active PARoxeti ne HCl 10 MG eCW1 (On License Of [facility]) lansoprazole 30 MG Delayed Release Oral Capsule Lansop razole 30 MG Lansoprazole 30 MG 08/19/2020 12:00:00 AM EDT 1.0 {capsule_before_a_meal} active Lansoprazole 30 MG eCW1 (On License Of [facility]) Sucralfate 100 MG/ML Oral Suspension [Carafate] Carafa te 1 GM/10ML Carafate 1 GM/10ML 08/19/2020 12:00:00 AM EDT 10.0 {ml_on_an_empty_stomach} active Carafate 1 GM/10ML eCW1 ([facility]) Sucralfate 100 MG/ML Oral Suspension [Carafate] Carafa te 1 GM/10ML Carafate 1 GM/10ML 08/19/2020 12:00:00 AM EDT 10.0 {ml_on_an_empty_stomach} active Carafate 1 GM/10ML eCW1 ([facility]) Paroxetine HCl 10 MG Paroxetine HCl 10 MG 08/19/2020 12:00:00 AM ED T 1.0 {tablet_in_the_morning} active Paroxeti ne HCl 10 MG eCW1 (On License Of [facility]) lansoprazole 30 MG Delayed Release Oral Capsule Lansop razole 30 MG Lansoprazole 30 MG 08/19/2020 12:00:00 AM EDT 1.0 {capsule_before_a_meal} active Lansoprazole 30 MG eCW1 (On License Of [facility]) PARoxetine HCl 10 MG PARoxetine HCl 10 MG 08/19/2020 12:00:00 AM ED T 1.0 {tablet_in_the_morning} active PARoxeti ne HCl 10 MG eCW1 (On License Of [facility]) PARoxetine HCl 10 MG PARoxetine HCl 10 MG 08/19/2020 12:00:00 AM ED T 1.0 {tablet_in_the_morning} active PARoxeti ne HCl 10 MG eCW1 (On License Of [facility]) Sucralfate 100 MG/ML Oral Suspension [Carafate] Carafa te 1 GM/10ML Carafate 1 GM/10ML 08/19/2020 12:00:00 AM EDT 10.0 {ml_on_an_empty_stomach} active Carafate 1 GM/10ML eCW1 ([facility]) lansoprazole 30 MG Delayed Release Oral Capsule Lansop razole 30 MG Lansoprazole 30 MG 08/19/2020 12:00:00 AM EDT 1.0 {capsule_before_a_meal} active Lansoprazole 30 MG eCW1 (On License Of [facility]) PARoxetine HCl 10 MG PARoxetine HCl 10 MG 08/19/2020 12:00:00 AM ED T 1.0 {tablet_in_the_morning} active PARoxeti ne HCl 10 MG eCW1 (On License Of [facility]) lansoprazole 30 MG Delayed Release Oral Capsule Lansop razole 30 MG Lansoprazole 30 MG 08/19/2020 12:00:00 AM EDT 1.0 {capsule_before_a_meal} active Lansoprazole 30 MG eCW1 (On License Of [facility]) lansoprazole 30 MG Delayed Release Oral Capsule Lansop razole 30 MG Lansoprazole 30 MG 08/19/2020 12:00:00 AM EDT 1.0 {capsule_before_a_meal} active Lansoprazole 30 MG eCW1 (On License Of [facility]) 10 mg 08/15/2020 12:00:00 AM EDT capsule 28 TAKE ONE CAPSULE BY MOUTH EVERY 6 HOURS NEEDED FOR IRRITABLE BOWEL SYMPTOMS TAKE ONE CAPSULE BY MOUTH EVERY 6 HOURS NEEDED FOR IRRITABLE BOWEL SYMPTOMS SOLD: 08/16/2020 [facility] Estradiol 0.1 MG/ML Vaginal Cream Estradiol 0.1 MG/GM Estrad iol 0.1 MG/GM 08/11/2020 12:00:00 AM EDT active Estradiol 0.1 MG/GM eCW1 (On License Of [facility]) Estradiol 0.1 MG/ML Vaginal Cream Estradiol 0.1 MG/GM Estrad iol 0.1 MG/GM 08/11/2020 12:00:00 AM EDT active Estradiol 0.1 MG/GM eCW1 (On License Of [facility]) Estradiol 0.1 MG/ML Vaginal Cream Estradiol 0.1 MG/GM Estrad iol 0.1 MG/GM 08/11/2020 12:00:00 AM EDT active Estradiol 0.1 MG/GM eCW1 (On License Of [facility]) Estradiol 0.1 MG/ML Vaginal Cream Estradiol 0.1 MG/GM Estrad iol 0.1 MG/GM 08/11/2020 12:00:00 AM EDT active Estradiol 0.1 MG/GM eCW1 (On License Of [facility]) Phenazopyridine hydrochloride 200 MG Oral Tablet Phena zopyridine HCl 200 MG Phenazopyridine HCl 200 MG 08/08/2020 12:00:00 AM EDT 1.0 {t ablet_after_meals} active Phenazopyridine HCl 200 MG eCW1 (On License Of [facility]) Phenazopyridine hydrochloride 200 MG Oral Tablet Phena zopyridine HCl 200 MG Phenazopyridine HCl 200 MG 08/08/2020 12:00:00 AM EDT 1.0 {t ablet_after_meals} active Phenazopyridine HCl 200 MG eCW1 (On License Of [facility]) Phenazopyridine hydrochloride 200 MG Oral Tablet Phena zopyridine HCl 200 MG Phenazopyridine HCl 200 MG 08/08/2020 12:00:00 AM EDT 1.0 {t ablet_after_meals} active Phenazopyridine HCl 200 MG eCW1 (On License Of [facility]) Ciprofloxacin 500 MG Oral Tablet [Cipro] Cipro 500 MG Cipro 500 MG 08/08/2020 12:00:00 AM EDT 1.0 {tablet} active Ci pro 500 MG eCW1 (On License Of [facility]) 500 mg 08/08/2020 12:00:00 AM EDT tablet 6 TAKE ONE TABLET BY MOUTH EVERY 12 HOURS FOR 3 DAYS TAKE ONE TABLET BY MOUTH EVERY 12 HOURS FOR 3 DAYS ANNALISA [facility] Ciprofloxacin 500 MG Oral Tablet [Cipro] Cipro 500 MG Cipro 500 MG 08/08/2020 12:00:00 AM EDT 1.0 {tablet} active Ci pro 500 MG eCW1 (On License Of [facility]) Phenazopyridine hydrochloride 200 MG Oral Tablet Phena zopyridine HCl 200 MG Phenazopyridine HCl 200 MG 08/08/2020 12:00:00 AM EDT 1.0 {t ablet_after_meals} active Phenazopyridine HCl 200 MG eCW1 (On License Of [facility]) Ciprofloxacin 500 MG Oral Tablet [Cipro] Cipro 500 MG Cipro 500 MG 08/08/2020 12:00:00 AM EDT 1.0 {tablet} active Ci pro 500 MG eCW1 (On License Of [facility]) Phenazopyridine hydrochloride 200 MG Oral Tablet Phena zopyridine HCl 200 MG Phenazopyridine HCl 200 MG 08/08/2020 12:00:00 AM EDT 1.0 {t ablet_after_meals} active Phenazopyridine HCl 200 MG eCW1 (On License Of [facility]) 200 mg 08/08/2020 12:00:00 AM EDT tablet 6 TAKE ONE TABLET BY MOUTH THREE TIMES A DAY AFTER MEALS TAKE ONE TABLET BY MOUTH THREE TIMES A DAY AFTER MEALS SOLD: 08/08/2020 [facility] Ciprofloxacin 500 MG Oral Tablet [Cipro] Cipro 500 MG Cipro 500 MG 08/08/2020 12:00:00 AM EDT 1.0 {tablet} active Ci pro 500 MG eCW1 (On License Of [facility]) Ciprofloxacin 500 MG Oral Tablet [Cipro] Cipro 500 MG Cipro 500 MG 08/08/2020 12:00:00 AM EDT 1.0 {tablet} active Ci pro 500 MG eCW1 (On License Of [facility]) Rosuvastatin calcium 40 MG Oral Tablet ROSUVASTATIN [...] CPAP 07/25/2020 12:00:00 AM EST active MEDENT ([facility], ) Cyclobenzaprine hydrochloride 10 MG Oral [...] 1.0 {tablet_on_the_tongue_and_allow_to_dissolve} active Ondansetron 4 MG eCW1 (On License Of [facility]) Ondansetron 4 MG Disintegrating Oral Tablet Ondansetron 4 MG 07/07/2020 12:00:00 AM EST 1.0 {tablet_on_the_tongue_and_allow_to_dissolve} active Ondansetron 4 MG eC1 (On License Of [facility]) Ondansetron 4 MG Disintegrating Oral Tablet Ondansetron 4 MG 07/07/2020 12:00:00 AM EST 1.0 {tablet_on_the_tongue_and_allow_to_dissolve} active Ondansetron 4 MG eC1 (On License Of [facility]) Ondansetron 4 MG Disintegrating Oral Tablet Ondansetron 4 MG 07/07/2020 12:00:00 AM EST 1.0 {tablet_on_the_tongue_and_allow_to_dissolve} active Ondansetron 4 MG eCW1 (On License Of [facility]) Ondansetron 4 MG Disintegrating Oral Tablet Ondansetron 4 MG 07/07/2020 12:00:00 AM EST 1.0 {tablet_on_the_tongue_and_allow_to_dissolve} active Ondansetron 4 MG eCW1 (On License Of [facility]) Ondansetron 4 MG Disintegrating Oral Tablet Ondansetron 4 MG 07/07/2020 12:00:00 AM EST 1.0 {tablet_on_the_tongue_and_allow_to_dissolve} active Ondansetron 4 MG eCW1 (On License Of [facility]) Ondansetron 4 MG Disintegrating Oral Tablet Ondansetron 4 MG 07/07/2020 12:00:00 AM EST 1.0 {tablet_on_the_tongue_and_allow_to_dissolve} active Ondansetron 4 MG eCW1 (On License Of [facility]) Ondansetron 4 MG Disintegrating Oral Tablet Ondansetron 4 MG 07/07/2020 12:00:00 AM EST 1.0 {tablet_on_the_tongue_and_allow_to_dissolve} active Ondansetron 4 MG eCW1 (On License Of [facility]) Ondansetron 4 MG Disintegrating Oral Tablet Ondansetron 4 MG 07/07/2020 12:00:00 AM EST 1.0 {tablet_on_the_tongue_and_allow_to_dissolve} active Ondansetron 4 MG eCW1 (On License Of [facility]) Ondansetron 4 MG Disintegrating Oral Tablet Ondansetron 4 MG 07/07/2020 12:00:00 AM EST 1.0 {tablet_on_the_tongue_and_allow_to_dissolve} active Ondansetron 4 MG eCW1 (On License Of [facility]) Ondansetron 4 MG Disintegrating Oral Tablet Ondansetron 4 MG 07/07/2020 12:00:00 AM EST 1.0 {tablet_on_the_tongue_and_allow_to_dissolve} suspended Ondansetron 4 MG eCW1 (On License Of [facility]) Ondansetron 4 MG Disintegrating Oral Tablet Ondansetron 4 MG 07/07/2020 12:00:00 AM EST 1.0 {tablet_on_the_tongue_and_allow_to_dissolve} active Ondansetron 4 MG eCW1 (On License Of [facility]) Ondansetron 4 MG Disintegrating Oral Tablet Ondansetron 4 MG 07/07/2020 12:00:00 AM EST 1.0 {tablet_on_the_tongue_and_allow_to_dissolve} active Ondansetron 4 MG eCW1 (On License Of [facility]) Ondansetron 4 MG Disintegrating Oral Tablet Ondansetron 4 MG 07/07/2020 12:00:00 AM EST 1.0 {tablet_on_the_tongue_and_allow_to_dissolve} suspended Ondansetron 4 MG eCW1 (On License Of [facility]) Ondansetron 4 MG Disintegrating Oral Tablet Ondansetron 4 MG 07/07/2020 12:00:00 AM EST 1.0 {tablet_on_the_tongue_and_allow_to_dissolve} active Ondansetron 4 MG eCW1 (On License Of [facility]) Ondansetron 4 MG Disintegrating Oral Tablet Ondansetron 4 MG 07/07/2020 12:00:00 AM EST 1.0 {tablet_on_the_tongue_and_allow_to_dissolve} active Ondansetron 4 MG eCW1 (On License Of [facility]) Ondansetron 4 MG Disintegrating Oral Tablet Ondansetron 4 MG 07/07/2020 12:00:00 AM EST 1.0 {tablet_on_the_tongue_and_allow_to_dissolve} active Ondansetron 4 MG eCW1 (On License Of [facility]) Ondansetron 4 MG Disintegrating Oral Tablet Ondansetron 4 MG 07/07/2020 12:00:00 AM EST 1.0 {tablet_on_the_tongue_and_allow_to_dissolve} active Ondansetron 4 MG eCW1 (On License Of [facility]) Ondansetron 4 MG Disintegrating Oral Tablet Ondansetron 4 MG 07/07/2020 12:00:00 AM EST 1.0 {tablet_on_the_tongue_and_allow_to_dissolve} active Ondansetron 4 MG eCW1 (On License Of [facility]) Ondansetron 4 MG Disintegrating Oral Tablet Ondansetron 4 MG 07/07/2020 12:00:00 AM EST 1.0 {tablet_on_the_tongue_and_allow_to_dissolve} active Ondansetron 4 MG eCW1 (On License Of [facility]) Ondansetron 4 MG Disintegrating Oral Tablet Ondansetron 4 MG 07/07/2020 12:00:00 AM EST 1.0 {tablet_on_the_tongue_and_allow_to_dissolve} active Ondansetron 4 MG eCW1 (On License Of [facility]) Ondansetron 4 MG Disintegrating Oral Tablet Ondansetron 4 MG 07/07/2020 12:00:00 AM EST 1.0 {tablet_on_the_tongue_and_allow_to_dissolve} active Ondansetron 4 MG eCW1 (On License Of [facility]) Ondansetron 4 MG Disintegrating Oral Tablet Ondansetron 4 MG 07/07/2020 12:00:00 AM EST 1.0 {tablet_on_the_tongue_and_allow_to_dissolve} active Ondansetron 4 MG eCW1 (On License Of [facility]) Ondansetron 4 MG Disintegrating Oral Tablet Ondansetron 4 MG 07/07/2020 12:00:00 AM EST 1.0 {tablet_on_the_tongue_and_allow_to_dissolve} active Ondansetron 4 MG eCW1 (On License Of [facility]) Ondansetron 4 MG Disintegrating Oral Tablet Ondansetron 4 MG 07/07/2020 12:00:00 AM EST 1.0 {tablet_on_the_tongue_and_allow_to_dissolve} active Ondansetron 4 MG eCW1 (On License Of [facility]) Ondansetron 4 MG Disintegrating Oral Tablet Ondansetron 4 MG 07/07/2020 12:00:00 AM EST 1.0 {tablet_on_the_tongue_and_allow_to_dissolve} active Ondansetron 4 MG eCW1 (On License Of [facility]) Ondansetron 4 MG Disintegrating Oral Tablet Ondansetron 4 MG 07/07/2020 12:00:00 AM EST 1.0 {tablet_on_the_tongue_and_allow_to_dissolve} active Ondansetron 4 MG eCW1 (On License Of [facility]) Ondansetron 4 MG Disintegrating Oral Tablet Ondansetron 4 MG 07/07/2020 12:00:00 AM EST 1.0 {tablet_on_the_tongue_and_allow_to_dissolve} active Ondansetron 4 MG eCW1 (On License Of [facility]) Ondansetron 4 MG Disintegrating Oral Tablet Ondansetron 4 MG 07/07/2020 12:00:00 AM EST 1.0 {tablet_on_the_tongue_and_allow_to_dissolve} active Ondansetron 4 MG eCW1 (On License Of [facility]) Ondansetron 4 MG Disintegrating Oral Tablet Ondansetron 4 MG 07/07/2020 12:00:00 AM EST 1.0 {tablet_on_the_tongue_and_allow_to_dissolve} active Ondansetron 4 MG eCW1 (On License Of [facility]) Ondansetron 4 MG Disintegrating Oral Tablet Ondansetron 4 MG 07/07/2020 12:00:00 AM EST 1.0 {tablet_on_the_tongue_and_allow_to_dissolve} active Ondansetron 4 MG eCW1 (On License Of [facility]) Ondansetron 4 MG Disintegrating Oral Tablet Ondansetron 4 MG 07/07/2020 12:00:00 AM EST 1.0 {tablet_on_the_tongue_and_allow_to_dissolve} active Ondansetron 4 MG eCW1 (On License Of [facility]) Ondansetron 4 MG Disintegrating Oral Tablet Ondansetron 4 MG 07/07/2020 12:00:00 AM EST 1.0 {tablet_on_the_tongue_and_allow_to_dissolve} active Ondansetron 4 MG eCW1 (On License Of [facility]) Ondansetron 4 MG Disintegrating Oral Tablet Ondansetron 4 MG 07/07/2020 12:00:00 AM EST 1.0 {tablet_on_the_tongue_and_allow_to_dissolve} active Ondansetron 4 MG eCW1 (On License Of [facility]) Ondansetron 4 MG Disintegrating Oral Tablet Ondansetron 4 MG 07/07/2020 12:00:00 AM EST 1.0 {tablet_on_the_tongue_and_allow_to_dissolve} active Ondansetron 4 MG eCW1 (On License Of [facility]) Ondansetron 4 MG Disintegrating Oral Tablet Ondansetron 4 MG 07/07/2020 12:00:00 AM EST 1.0 {tablet_on_the_tongue_and_allow_to_dissolve} active Ondansetron 4 MG eCW1 (On License Of [facility]) Ondansetron 4 MG Disintegrating Oral Tablet Ondansetron 4 MG 07/07/2020 12:00:00 AM EST 1.0 {tablet_on_the_tongue_and_allow_to_dissolve} active Ondansetron 4 MG eCW1 (On License Of [facility]) Ondansetron 4 MG Disintegrating Oral Tablet Ondansetron 4 MG 07/07/2020 12:00:00 AM EST 1.0 {tablet_on_the_tongue_and_allow_to_dissolve} active Ondansetron 4 MG eCW1 (On License Of [facility]) Ondansetron 4 MG Disintegrating Oral Tablet Ondansetron 4 MG 07/07/2020 12:00:00 AM EST 1.0 {tablet_on_the_tongue_and_allow_to_dissolve} active Ondansetron 4 MG eCW1 (On License Of [facility]) 10 mg 07/01/2020 12:00:00 AM EST tablet [...] 1.0 {capsule} suspended Gabapentin 100 MG eCW1 (On License Of [facility]) gabapentin 100 MG Oral Capsule Gabapentin 100 MG Gabapentin 100 MG 06/30/2020 12:00:00 AM EST 1.0 {capsule} suspended Gabapentin 100 MG eCW1 (On License Of [facility]) gabapentin 100 MG Oral Capsule Gabapentin 100 MG Gabapentin 100 MG 06/30/2020 12:00:00 AM EST 1.0 {capsule} suspended Gabapentin 100 MG eCW1 (On License Of [facility]) gabapentin 100 MG Oral Capsule Gabapentin 100 MG Gabapentin 100 MG 06/30/2020 12:00:00 AM EST 1.0 {capsule} active G abapentin 100 MG eCW1 (On License Of [facility]) gabapentin 100 MG Oral Capsule Gabapentin 100 MG Gabapentin 100 MG 06/30/2020 12:00:00 AM EST 1.0 {capsule} active G abapentin 100 MG eCW1 (On License Of [facility]) gabapentin 100 MG Oral Capsule Gabapentin 100 MG Gabapentin 100 MG 06/30/2020 12:00:00 AM EST 1.0 {capsule} active G abapentin 100 MG eCW1 (On License Of [facility]) gabapentin 100 MG Oral Capsule Gabapentin 100 MG Gabapentin 100 MG 06/30/2020 12:00:00 AM EST 1.0 {capsule} active G abapentin 100 MG eCW1 (On License Of [facility]) gabapentin 100 MG Oral Capsule Gabapentin 100 MG Gabapentin 100 MG 06/30/2020 12:00:00 AM EST 1.0 {capsule} active G abapentin 100 MG eCW1 (On License Of [facility]) gabapentin 100 MG Oral Capsule Gabapentin 100 MG Gabapentin 100 MG 06/30/2020 12:00:00 AM EST 1.0 {capsule} active G abapentin 100 MG eCW1 (On License Of [facility]) gabapentin 100 MG Oral Capsule Gabapentin 100 MG Gabapentin 100 MG 06/30/2020 12:00:00 AM EST 1.0 {capsule} suspended Gabapentin 100 MG eCW1 (On License Of [facility]) gabapentin 100 MG Oral Capsule Gabapentin 100 MG Gabapentin 100 MG 06/30/2020 12:00:00 AM EST 1.0 {capsule} active G abapentin 100 MG eCW1 (On License Of [facility]) gabapentin 100 MG Oral Capsule Gabapentin 100 MG Gabapentin 100 MG 06/30/2020 12:00:00 AM EST 1.0 {capsule} active G abapentin 100 MG eCW1 (On License Of [facility]) gabapentin 100 MG Oral Capsule Gabapentin 100 MG Gabapentin 100 MG 06/30/2020 12:00:00 AM EST 1.0 {capsule} active G abapentin 100 MG eCW1 (On License Of [facility]) gabapentin 100 MG Oral Capsule Gabapentin 100 MG Gabapentin 100 MG 06/30/2020 12:00:00 AM EST 1.0 {capsule} suspended Gabapentin 100 MG eCW1 (On License Of [facility]) PredniSONE ([place]) 10mg UNK 06/23/2020 12:00:00 AM EST suspended PredniSONE ([place]) 10mg eCW1 (On License Of [facility]) Doxycycline Monohydrate 100 MG Oral Capsule Doxycycline [place] hydrate 100 MG 06/23/2020 12:00:00 AM EST 1.0 {capsule} active Doxycycline Monohydrate 100 MG eCW1 (On License Of [facility]) 10 mg 06/23/2020 12:00:00 AM EST tablet [...] AM EST suspended PredniSONE ([place]) 10mg eCW1 (On License Of [facility]) PredniSONE ([place]) 10mg UNK 06/23/2020 12:00:00 AM EST active PredniSONE ([place]) 10mg eCW1 (On License Of [facility]) PredniSONE ([place]) 10mg UNK 06/23/2020 12:00:00 AM EST active PredniSONE ([place]) 10mg eCW1 (On License Of [facility]) PredniSONE ([place]) 10mg UNK 06/23/2020 12:00:00 AM EST suspended PredniSONE ([place]) 10mg eCW1 (On License Of [facility]) PredniSONE ([place]) 10mg UNK 06/23/2020 12:00:00 AM EST active PredniSONE ([place]) 10mg eCW1 (On License Of [facility]) Doxycycline Monohydrate 100 MG Oral Capsule Doxycycline [place] hydrate 100 MG 06/23/2020 12:00:00 AM EST 1.0 {capsule} active Doxycycline Monohydrate 100 MG eCW1 (On License Of [facility]) PredniSONE ([place]) 10mg UNK 06/23/2020 12:00:00 AM EST active PredniSONE ([place]) 10mg eCW1 (On License Of [facility]) PredniSONE ([place]) 10mg UNK 06/23/2020 12:00:00 AM EST suspended PredniSONE ([place]) 10mg eCW1 (On License Of [facility]) PredniSONE ([place]) 10mg UNK 06/23/2020 12:00:00 AM EST active PredniSONE ([place]) 10mg eCW1 (On License Of [facility]) PredniSONE ([place]) 10mg UNK 06/23/2020 12:00:00 AM EST active PredniSONE ([place]) 10mg eCW1 (On License Of [facility]) PredniSONE ([place]) 10mg UNK 06/23/2020 12:00:00 AM EST active PredniSONE ([place]) 10mg eCW1 (On License Of [facility]) PredniSONE ([place]) 10mg UNK 06/23/2020 12:00:00 AM EST active PredniSONE ([place]) 10mg eCW1 (On License Of [facility]) PredniSONE ([place]) 10mg UNK 06/23/2020 12:00:00 AM EST active PredniSONE ([place]) 10mg eCW1 (On License Of [facility]) PredniSONE ([place]) 10mg UNK 06/23/2020 12:00:00 AM EST active PredniSONE ([place]) 10mg eCW1 (On License Of [facility]) PredniSONE ([place]) 10mg UNK 06/23/2020 12:00:00 AM EST active PredniSONE ([place]) 10mg eCW1 (On License Of [facility]) PredniSONE ([place]) 10mg UNK 06/23/2020 12:00:00 AM EST suspended PredniSONE ([place]) 10mg eCW1 (On License Of [facility]) Sodium Chloride 0.111 MEQ/ML Nasal [place] [[place] brand of sodium chloride] [place] Nasal [place] 0.65 % [place] Nasal [place] 0.65 % 06/20/2020 12:00:00 AM EST active [place] Nasal [place] 0.65 % eCW 1 (On License Of [facility]) Sodium Chloride 0.111 MEQ/ML Nasal [place] [[place] brand of sodium chloride] [place] Nasal [place] 0.65 % [place] Nasal [place] 0.65 % 06/20/2020 12:00:00 AM EST active [place] Nasal [place] 0.65 % eCW 1 (On License Of [facility]) montelukast 10 MG Oral Tablet MONTELUKAST SODIUM 06/20/2020 12:0 0:00 AM EST tablet 30 TAKE ONE TABLET BY MOUTH AT BEDT BEV TAKE ONE TABLET BY MOUTH AT BEDTIME SOLD: 06/20/2020 [facility] Sodium Chloride 0.111 MEQ/ML Nasal [place] [[place] brand of sodium chloride] [place] Nasal [place] 0.65 % [place] Nasal [place] 0.65 % 06/20/2020 12:00:00 AM EST active [place] Nasal [place] 0.65 % eCW 1 (On License Of [facility]) Sodium Chloride 0.111 MEQ/ML Nasal [place] [[place] brand of sodium chloride] [place] Nasal [place] 0.65 % [place] Nasal [place] 0.65 % 06/20/2020 12:00:00 AM EST active [place] Nasal [place] 0.65 % eCW 1 (On License Of [facility]) Sodium Chloride 0.111 MEQ/ML Nasal [place] [[place] brand of sodium chloride] [place] Nasal [place] 0.65 % [place] Nasal [place] 0.65 % 06/20/2020 12:00:00 AM EST active eCW1 (On License Of [facility]) Sodium Chloride 0.111 MEQ/ML Nasal [place] [[place] brand of sodium chloride] [place] Nasal [place] 0.65 % [place] Nasal [place] 0.65 % 06/20/2020 12:00:00 AM EST active [place] Nasal [place] 0.65 % eCW 1 (On License Of [facility]) Sodium Chloride 0.111 MEQ/ML Nasal [place] [[place] brand of sodium chloride] [place] Nasal [place] 0.65 % [place] Nasal [place] 0.65 % 06/20/2020 12:00:00 AM EST active [place] Nasal [place] 0.65 % eCW 1 (On License Of [facility]) Sodium Chloride 0.111 MEQ/ML Nasal [place] [[place] brand of sodium chloride] [place] Nasal [place] 0.65 % [place] Nasal [place] 0.65 % 06/20/2020 12:00:00 AM EST active [place] Nasal [place] 0.65 % eCW 1 (On License Of [facility]) Sodium Chloride 0.111 MEQ/ML Nasal [place] [[place] brand of sodium chloride] [place] Nasal [place] 0.65 % [place] Nasal [place] 0.65 % 06/20/2020 12:00:00 AM EST active [place] Nasal [place] 0.65 % eCW 1 (On License Of [facility]) Sodium Chloride 0.111 MEQ/ML Nasal [place] [[place] brand of sodium chloride] [place] Nasal [place] 0.65 % [place] Nasal [place] 0.65 % 06/20/2020 12:00:00 AM EST active [place] Nasal [place] 0.65 % eCW 1 (On License Of [facility]) montelukast 10 MG Oral Tablet MONTELUKAST SODIUM 06/20/2020 12:0 0:00 AM EST tablet 30 TAKE ONE TABLET BY MOUTH AT BEDT BEV TAKE ONE TABLET BY MOUTH AT BEDTIME SOLD: 08/21/2020 [facility] Sodium Chloride 0.111 MEQ/ML Nasal [place] [[place] brand of sodium chloride] [place] Nasal [place] 0.65 % [place] Nasal [place] 0.65 % 06/20/2020 12:00:00 AM EST active [place] Nasal [place] 0.65 % eCW 1 (On License Of [facility]) Sodium Chloride 0.111 MEQ/ML Nasal [place] [[place] brand of sodium chloride] [place] Nasal [place] 0.65 % [place] Nasal [place] 0.65 % 06/20/2020 12:00:00 AM EST active eCW1 (On License Of [facility]) Sodium Chloride 0.111 MEQ/ML Nasal [place] [[place] brand of sodium chloride] [place] Nasal [place] 0.65 % [place] Nasal [place] 0.65 % 06/20/2020 12:00:00 AM EST active [place] Nasal [place] 0.65 % eCW 1 (On License Of [facility]) Sodium Chloride 0.111 MEQ/ML [facility] [place] [[place] brand of sodium chloride] [place] [facility] [place] 0.65 % [place] [facility] [place] 0.65 % 06/20/2020 12:00:00 AM EST active [place] [facility] [place] 0.65 % eCW 1 (On License Of [facility]) Sodium Chloride 0.111 MEQ/ML [facility] [place] [[place] brand of sodium chloride] [place] [facility] [place] 0.65 % [place] [facility] [place] 0.65 % 06/20/2020 12:00:00 AM EST active [place] [facility] [place] 0.65 % eCW 1 (On License Of [facility]) Sodium Chloride 0.111 MEQ/ML [facility] [place] [[place] brand of sodium chloride] [place] [facility] [place] 0.65 % [place] [facility] [place] 0.65 % 06/20/2020 12:00:00 AM EST active [place] [facility] [place] 0.65 % eCW 1 (On License Of [facility]) montelukast 10 MG Oral Tablet MONTELUKAST SODIUM 06/20/2020 12:0 0:00 AM EST tablet 30 TAKE ONE TABLET BY MOUTH AT BEDT BEV TAKE ONE TABLET BY MOUTH AT BEDTIME SOLD: 07/21/2020 [facility] Sodium Chloride 0.111 MEQ/ML [place] [place] [[place] brand of sodium chloride] [place] [place] 0.65 % [place] [facility] [place] 0.65 % 06/20/2020 12:00:00 AM EST active [place] [facility] [place] 0.65 % eCW 1 (On License Of [facility]) Sodium Chloride 0.111 MEQ/ML [place] [place] [[place] brand of sodium chloride] [place] [place] 0.65 % [place] [place] [place] 0.65 % 06/20/2020 12:00:00 AM EST active [place] [facility] [place] 0.65 % eCW 1 (On License Of [facility]) Sodium Chloride 0.111 MEQ/ML [place] [place] [[place] brand of sodium chloride] [facility] [facility] [place] 0.65 % [facility] [facility] [place] 0.65 % 06/20/2020 12:00:00 AM EST active [place] [place] 0.65 % eCW 1 (On License Of [facility]) Sodium Chloride 0.111 MEQ/ML [place] [[place] brand of sodium chloride] [place] 0.65 % [place] [facility] [place] 0.65 % 06/20/2020 12:00:00 AM EST active [place] 0.65 % eCW 1 (On License Of [facility]) Sodium Chloride 0.111 MEQ/ML [place] [[place] brand of sodium chloride] [place] 0.65 % [place] [facility] 0.65 % 06/20/2020 12:00:00 AM EST active [place] 0.65 % eCW 1 (On License Of [facility]) Sodium Chloride 0.111 MEQ/ML [place] [[place] brand of sodium chloride] [place] 0.65 % [place] 0.65 % 06/20/2020 12:00:00 AM EST active [place] 0.65 % eCW 1 (On License Of [facility]) Sodium Chloride 0.111 MEQ/ML [place] [[place] brand of sodium chloride] [place] 0.65 % [place] 0.65 % 06/20/2020 12:00:00 AM EST active [place] 0.65 % eCW 1 (On License Of [facility]) Sodium Chloride 0.111 MEQ/ML [place] [[place] brand of sodium chloride] [place] 0.65 % [place] 0.65 % 06/20/2020 12:00:00 AM EST active [place] 0.65 % eCW 1 (On License Of [facility]) Sodium Chloride 0.111 MEQ/ML [place] [[place] brand of sodium chloride] [place] 0.65 % [place] 0.65 % 06/20/2020 12:00:00 AM EST active [place] 0.65 % eCW 1 (On License Of [facility]) Sodium Chloride 0.111 MEQ/ML [place] [[place] brand of sodium chloride] [place] 0.65 % [place] 0.65 % 06/20/2020 12:00:00 AM EST active [place] 0.65 % eCW 1 (On License Of [facility]) Sodium Chloride 0.111 MEQ/ML [place] [[place] brand of sodium chloride] [place] 0.65 % [place] 0.65 % 06/20/2020 12:00:00 AM EST active [place] 0.65 % eCW 1 (On License Of [facility]) Sodium Chloride 0.111 MEQ/ML [place] [[place] brand of sodium chloride] [place] 0.65 % [place] [facility] 0.65 % 06/20/2020 12:00:00 AM EST active [place] 0.65 % eCW 1 (On License Of [facility]) Sodium Chloride 0.111 MEQ/ML [place] [[place] brand of sodium chloride] [place] 0.65 % [place] [facility] 0.65 % 06/20/2020 12:00:00 AM EST active [place] 0.65 % eCW 1 (On License Of [facility]) Sodium Chloride 0.111 MEQ/ML [place] [[place] brand of sodium chloride] [place] 0.65 % [place] [facility] 0.65 % 06/20/2020 12:00:00 AM EST active [place] 0.65 % eCW 1 (On License Of [facility]) Sodium Chloride 0.111 MEQ/ML [place] [[place] brand of sodium chloride] [place] 0.65 % [place] 0.65 % 06/20/2020 12:00:00 AM EST active [place] 0.65 % eCW 1 (On License Of [facility]) Sodium Chloride 0.111 MEQ/ML [place] [[place] brand of sodium chloride] [place] 0.65 % [place] 0.65 % 06/20/2020 12:00:00 AM EST active [place] 0.65 % eCW 1 (On License Of [facility]) Sodium Chloride 0.111 MEQ/ML [place] [[place] brand of sodium chloride] [place] 0.65 % [place] 0.65 % 06/20/2020 12:00:00 AM EST active [place] 0.65 % eCW 1 (On License Of [facility]) Sodium Chloride 0.111 MEQ/ML [place] [[place] brand of sodium chloride] [place] 0.65 % [place] 0.65 % 06/20/2020 12:00:00 AM EST active eCW1 (On License Of [facility]) Sodium Chloride 0.111 MEQ/ML [place] [[place] brand of sodium chloride] [place] 0.65 % [place] [facility] 0.65 % 06/20/2020 12:00:00 AM EST active [place] 0.65 % eCW 1 (On License Of [facility]) Sodium Chloride 0.111 MEQ/ML [place] [[place] brand of sodium chloride] [place] 0.65 % [place] 0.65 % 06/20/2020 12:00:00 AM EST active eCW1 (On License Of [facility]) Sodium Chloride 0.111 MEQ/ML [place] [[place] brand of sodium chloride] [place] 0.65 % [place] 0.65 % 06/20/2020 12:00:00 AM EST active [place] 0.65 % eCW 1 (On License Of [facility]) Sodium Chloride 0.111 MEQ/ML [place] [[place] brand of sodium chloride] [place] 0.65 % [place] 0.65 % 06/20/2020 12:00:00 AM EST active [place] 0.65 % eCW 1 (On License Of [facility]) Sodium Chloride 0.111 MEQ/ML [place] [[place] brand of sodium chloride] [place] 0.65 % [place] [facility] 0.65 % 06/20/2020 12:00:00 AM EST active [place] 0.65 % eCW 1 (On License Of [facility]) Sodium Chloride 0.111 MEQ/ML [place] [[place] brand of sodium chloride] [place] 0.65 % [place] 0.65 % 06/20/2020 12:00:00 AM EST active [place] 0.65 % eCW 1 (On License Of [facility]) Sodium Chloride 0.111 MEQ/ML [place] [[place] brand of sodium chloride] [place] 0.65 % [place] 0.65 % 06/20/2020 12:00:00 AM EST active [place] 0.65 % eCW 1 (On License Of [facility]) Sodium Chloride 0.111 MEQ/ML [place] [[place] brand of sodium chloride] [place] 0.65 % [place] 0.65 % 06/20/2020 12:00:00 AM EST active [place] 0.65 % eCW 1 (On License Of [facility]) Sodium Chloride 0.111 MEQ/ML [place] [[place] brand of sodium chloride] [place] 0.65 % [place] 0.65 % 06/20/2020 12:00:00 AM EST active [place] 0.65 % eCW 1 (On License Of [facility]) Sodium Chloride 0.111 MEQ/ML [place] [[place] brand of sodium chloride] [place] 0.65 % [place] 0.65 % 06/20/2020 12:00:00 AM EST active [place] 0.65 % eCW 1 (On License Of [facility]) Sodium Chloride 0.111 MEQ/ML [place] [[place] brand of sodium chloride] [place] 0.65 % [place] 0.65 % 06/20/2020 12:00:00 AM EST active [place] 0.65 % eCW 1 (On License Of [facility]) Sodium Chloride 0.111 MEQ/ML [place] [[place] brand of sodium chloride] [place] 0.65 % [place] [facility] 0.65 % 06/20/2020 12:00:00 AM EST active [place] 0.65 % eCW 1 (On License Of [facility]) Sodium Chloride 0.111 MEQ/ML [place] [[place] brand of sodium chloride] [place] 0.65 % [place] 0.65 % 06/20/2020 12:00:00 AM EST active [place] 0.65 % eCW 1 (On License Of [facility]) Sodium Chloride 0.111 MEQ/ML [place] [[place] brand of sodium chloride] [place] 0.65 % [place] [facility] 0.65 % 06/20/2020 12:00:00 AM EST active [place] 0.65 % eCW 1 (On License Of [facility]) Sodium Chloride 0.111 MEQ/ML [place] [[place] brand of sodium chloride] [place] 0.65 % [place] [facility] 0.65 % 06/20/2020 12:00:00 AM EST active [place] 0.65 % eCW 1 (On License Of [facility]) Sodium Chloride 0.111 MEQ/ML [place] [[place] brand of sodium chloride] [place] 0.65 % [place] 0.65 % 06/20/2020 12:00:00 AM EST active [place] 0.65 % eCW 1 (On License Of [facility]) Sodium Chloride 0.111 MEQ/ML [place] [[place] brand of sodium chloride] [place] 0.65 % [place] [facility] 0.65 % 06/20/2020 12:00:00 AM EST active [place] 0.65 % eCW 1 (On License Of [facility]) Sodium Chloride 0.111 MEQ/ML [place] [[place] brand of sodium chloride] [place] 0.65 % [place] [facility] 0.65 % 06/20/2020 12:00:00 AM EST active [place] 0.65 % eCW 1 (On License Of [facility]) Sodium Chloride 0.111 MEQ/ML [place] [[place] brand of sodium chloride] [place] 0.65 % [place] [facility] 0.65 % 06/20/2020 12:00:00 AM EST active [place] 0.65 % eCW 1 (On License Of [facility]) Sodium Chloride 0.111 MEQ/ML [place] [[place] brand of sodium chloride] [place] 0.65 % [place] 0.65 % 06/20/2020 12:00:00 AM EST active [place] 0.65 % eCW 1 (On License Of [facility]) Sodium Chloride 0.111 MEQ/ML [place] [[place] brand of sodium chloride] [place] 0.65 % [place] 0.65 % 06/20/2020 12:00:00 AM EST active [place] 0.65 % eCW 1 (On License Of [facility]) montelukast 10 MG Oral Tablet MONTELUKAST SODIUM 06/20/2020 12:0 0:00 AM EST tablet 30 TAKE ONE TABLET BY MOUTH AT BEDT BEV TAKE ONE TABLET BY MOUTH AT BEDTIME SOLD: 09/19/2020 [facility] Sodium Chloride 0.111 MEQ/ML [place] [[place] brand of sodium chloride] [place] 0.65 % [place] 0.65 % 06/20/2020 12:00:00 AM EST active [place] 0.65 % eCW 1 (On License Of [facility]) Sodium Chloride 0.111 MEQ/ML [place] [[place] brand of sodium chloride] [place] 0.65 % [place] 0.65 % 06/20/2020 12:00:00 AM EST active [place] 0.65 % eCW 1 (On License Of [facility]) Sodium Chloride 0.111 MEQ/ML [place] [[place] brand of sodium chloride] [place] 0.65 % [place] 0.65 % 06/20/2020 12:00:00 AM EST active [place] 0.65 % eCW 1 (On License Of [facility]) Sodium Chloride 0.111 MEQ/ML [place] [[place] brand of sodium chloride] [place] 0.65 % [place] 0.65 % 06/20/2020 12:00:00 AM EST active [place] 0.65 % eCW 1 (On License Of [facility]) Sodium Chloride 0.111 MEQ/ML [place] [[place] brand of sodium chloride] [place] 0.65 % [place] 0.65 % 06/20/2020 12:00:00 AM EST active [place] 0.65 % eCW 1 (On License Of [facility]) Sodium Chloride 0.111 MEQ/ML [place] [[place] brand of sodium chloride] [place] 0.65 % [place] 0.65 % 06/20/2020 12:00:00 AM EST active [place] 0.65 % eCW 1 (On License Of [facility]) 100 mg 06/17/2020 12:00:00 AM EST tablet 20 TAKE ONE TABLET BY MOUTH TWICE A DAY FOR 10 DAYS TAKE ONE TABLET BY MOUTH TWICE A DAY FOR 10 DAYS SOLD: 06/17/2020 [facility] Doxycycline Monohydrate 100 MG Oral Tablet Doxycycline Monoh ydrate 06/17/2020 12:00:00 AM EST ORAL completed [facility] ([facility]) 75 mg 06/11/2020 12:00:00 AM [...] 06/04/2020 12:00:00 AM EST ORAL completed [facility] ([facility]) 300 mg 06/04/2020 12:00:00 AM EST capsule [...] a ctive Duloxetine HCl 30 MG eCW1 (On License Of [facility]) duloxetine 30 MG Delayed Release Oral Capsule Duloxeti ne HCl 30 MG Duloxetine HCl 30 MG 05/19/2020 12:00:00 AM EST 1.0 {capsule} a ctive Duloxetine HCl 30 MG eCW1 (On License Of [facility]) duloxetine 30 MG Delayed Release Oral Capsule Duloxeti ne HCl 30 MG Duloxetine HCl 30 MG 05/19/2020 12:00:00 AM EST 1.0 {capsule} a ctive Duloxetine HCl 30 MG eCW1 (On License Of [facility]) duloxetine 30 MG Delayed Release Oral Capsule Duloxeti ne HCl 30 MG Duloxetine HCl 30 MG 05/19/2020 12:00:00 AM EST 1.0 {capsule} a ctive Duloxetine HCl 30 MG eCW1 (On License Of [facility]) duloxetine 30 MG Delayed Release Oral Capsule Duloxeti ne HCl 30 MG Duloxetine HCl 30 MG 05/19/2020 12:00:00 AM EST 1.0 {capsule} a ctive Duloxetine HCl 30 MG eCW1 (On License Of [facility]) duloxetine 30 MG Delayed Release Oral Capsule Duloxeti ne HCl 30 MG Duloxetine HCl 30 MG 05/19/2020 12:00:00 AM EST 1.0 {capsule} a ctive Duloxetine HCl 30 MG eCW1 (On License Of [facility]) duloxetine 30 MG Delayed Release Oral Capsule Duloxeti ne HCl 30 MG Duloxetine HCl 30 MG 05/19/2020 12:00:00 AM EST 1.0 {capsule} a ctive Duloxetine HCl 30 MG eCW1 (On License Of [facility]) duloxetine 30 MG Delayed Release Oral Capsule Duloxeti ne HCl 30 MG Duloxetine HCl 30 MG 05/19/2020 12:00:00 AM EST 1.0 {capsule} a ctive Duloxetine HCl 30 MG eCW1 (On License Of [facility]) duloxetine 30 MG Delayed Release Oral Capsule Duloxeti ne HCl 30 MG Duloxetine HCl 30 MG 05/19/2020 12:00:00 AM EST 1.0 {capsule} a ctive Duloxetine HCl 30 MG eCW1 (On License Of [facility]) duloxetine 30 MG Delayed Release Oral Capsule Duloxeti ne HCl 30 MG Duloxetine HCl 30 MG 05/19/2020 12:00:00 AM EST 1.0 {capsule} a ctive Duloxetine HCl 30 MG eCW1 (On License Of [facility]) 10 mg 05/19/2020 12:00:00 AM EST tablet [...] a ctive Duloxetine HCl 30 MG eCW1 (On License Of [facility]) duloxetine 30 MG Delayed Release Oral Capsule Duloxeti ne HCl 30 MG Duloxetine HCl 30 MG 05/19/2020 12:00:00 AM EST 1.0 {capsule} a ctive Duloxetine HCl 30 MG eCW1 (On License Of [facility]) duloxetine 30 MG Delayed Release Oral Capsule Duloxeti ne HCl 30 MG Duloxetine HCl 30 MG 05/19/2020 12:00:00 AM EST 1.0 {capsule} a ctive Duloxetine HCl 30 MG eCW1 (On License Of [facility]) 50 mg 05/14/2020 12:00:00 AM EST tablet [...] {tablet} active Te lmisartan 20 MG eCW1 (On License Of [facility]) telmisartan 20 MG Oral Tablet Telmisartan 20 MG Telmisartan 20 MG 05/01/2020 12:00:00 AM EST active Telmisar freed 20 MG eCW1 (On License Of [facility]) telmisartan 20 MG Oral Tablet Telmisartan 20 MG Telmisartan 20 MG 05/01/2020 12:00:00 AM EST 1.0 {tablet} active Te lmisartan 20 MG eCW1 (On License Of [facility]) telmisartan 20 MG Oral Tablet Telmisartan 20 MG Telmisartan 20 MG 05/01/2020 12:00:00 AM EST 1.0 {tablet} active Te lmisartan 20 MG eCW1 (On License Of [facility]) telmisartan 20 MG Oral Tablet Telmisartan 20 MG Telmisartan 20 MG 05/01/2020 12:00:00 AM EST 1.0 {tablet} active Te lmisartan 20 MG eCW1 (On License Of [facility]) telmisartan 20 MG Oral Tablet Telmisartan 20 MG Telmisartan 20 MG 05/01/2020 12:00:00 AM EST active Telmisar freed 20 MG eCW1 (On License Of [facility]) telmisartan 20 MG Oral Tablet Telmisartan 20 MG Telmisartan 20 MG 05/01/2020 12:00:00 AM EST 1.0 {tablet} active Te lmisartan 20 MG eCW1 (On License Of [facility]) telmisartan 20 MG Oral Tablet Telmisartan 20 MG Telmisartan 20 MG 05/01/2020 12:00:00 AM EST 1.0 {tablet} active Te lmisartan 20 MG eCW1 (On License Of [facility]) carvedilol 12.5 MG Oral Tablet CARVEDILOL 05/01/2020 12:00:00 AM EST tablet 180 TAKE ONE TABLET BY MOUTH TWICE A DAY WITH FOOD TAKE ON E TABLET BY MOUTH TWICE A DAY WITH FOOD SOLD: 08/01/2020 [facility] telmisartan 20 MG Oral Tablet Telmisartan 20 MG Telmisartan 20 MG 05/01/2020 12:00:00 AM EST 1.0 {tablet} active Te lmisartan 20 MG eCW1 (On License Of [facility]) telmisartan 20 MG Oral Tablet TELMISARTAN 05/01/2020 12:00:00 AM EST tablet 30 TAKE 1/2 TABLET BY MOUTH TWO TIMES A DAY TAKE 1/2 TABL ET BY MOUTH TWO TIMES A DAY SOLD: 01/26/2021 [facility] telmisartan 20 MG Oral Tablet [...] EST active Telmisar freed 20 MG eCW1 (On License Of [facility]) telmisartan 20 MG Oral Tablet Telmisartan 20 MG Telmisartan 20 MG 05/01/2020 12:00:00 AM EST active Telmisar freed 20 MG eCW1 (On License Of [facility]) telmisartan 20 MG Oral Tablet Telmisartan 20 MG Telmisartan 20 MG 05/01/2020 12:00:00 AM EST 1.0 {tablet} active Te lmisartan 20 MG eCW1 (On License Of [facility]) 20 mg 05/01/2020 12:00:00 AM EST tablet 10 TAKE ONE TABLET BY MOUTH TWICE A DAY TAKE ONE TABLET BY MOUTH TWICE A DAY SOLD: 05/01/2020 [facility] telmisartan 20 MG Oral Tablet Telmisartan 20 MG Telmisartan 20 MG 05/01/2020 12:00:00 AM EST 1.0 {tablet} active Te lmisartan 20 MG eCW1 (On License Of [facility]) carvedilol 12.5 MG Oral Tablet CARVEDILOL 05/01/2020 [...] {tablet} active Te lmisartan 20 MG eCW1 (On License Of [facility]) telmisartan 20 MG Oral Tablet TELMISARTAN 05/01/2020 12:00:00 AM EST tablet 30 TAKE 1/2 TABLET BY MOUTH TWO TIMES A DAY TAKE 1/2 TABL ET BY MOUTH TWO TIMES A DAY SOLD: 05/01/2020 [facility] telmisartan 20 MG Oral Tablet Telmisartan 20 MG Telmisartan 20 MG 05/01/2020 12:00:00 AM EST active Telmisar freed 20 MG eCW1 (On License Of [facility]) telmisartan 20 MG Oral Tablet Telmisartan 20 MG Telmisartan 20 MG 05/01/2020 12:00:00 AM EST 1.0 {tablet} active Te lmisartan 20 MG eCW1 (On License Of [facility]) telmisartan 20 MG Oral Tablet Telmisartan 20 MG Telmisartan 20 MG 05/01/2020 12:00:00 AM EST 1.0 {tablet} active Te lmisartan 20 MG eCW1 (On License Of [facility]) telmisartan 20 MG Oral Tablet Telmisartan 20 MG Telmisartan 20 MG 05/01/2020 12:00:00 AM EST 1.0 {tablet} active Te lmisartan 20 MG eCW1 (On License Of [facility]) Nebulizer/Tubing/Mouthpiece - Nebulizer/Tubing/Mouthpiece - 04/21/2020 12:00:00 AM EST active Nebulizer/Tubing/ Mouthpiece - eCW1 (On License Of [facility]) Nebulizer - Nebulizer - 04/21/2020 12:00:00 AM EST active Nebulizer - eCW1 (On License Of [facility]) Nebulizer - Nebulizer - 04/21/2020 12:00:00 AM EST active Nebulizer - eCW1 (On License Of [facility]) Nebulizer/Tubing/Mouthpiece - Nebulizer/Tubing/Mouthpiece - 04/21/2020 12:00:00 AM EST active Nebulizer/Tubing/ Mouthpiece - eCW1 (On License Of [facility]) Nebulizer - Nebulizer - 04/21/2020 12:00:00 AM EST active Nebulizer - eCW1 (On License Of [facility]) Nebulizer - Nebulizer - 04/21/2020 12:00:00 AM EST active Nebulizer - eCW1 (On License Of [facility]) Nebulizer/Tubing/Mouthpiece - Nebulizer/Tubing/Mouthpiece - 04/21/2020 12:00:00 AM EST active Nebulizer/Tubing/ Mouthpiece - eCW1 (On License Of [facility]) Albuterol 0.83 MG/ML Inhalant Solution Albuterol Sulfa te (2.5 MG/3ML) 0.083% Albuterol Sulfate (2.5 MG/3ML) 0.083% 04/21/2020 12:00:00 AM EST 3.0 {ml_as_needed} active Albuterol Sulfate (2.5 MG/3ML) 0.083% eCW1 (On License Of [facility]) Nebulizer/Tubing/Mouthpiece - Nebulizer/Tubing/Mouthpiece - 04/21/2020 12:00:00 AM EST active Nebulizer/Tubing/ Mouthpiece - eCW1 (On License Of [facility]) Nebulizer - Nebulizer - 04/21/2020 12:00:00 AM EST active Nebulizer - eCW1 (On License Of [facility]) Albuterol 0.83 MG/ML Inhalant Solution Albuterol Sulfa te (2.5 MG/3ML) 0.083% Albuterol Sulfate (2.5 MG/3ML) 0.083% 04/21/2020 12:00:00 AM EST 3.0 {ml_as_needed} active Albuterol Sulfate (2.5 MG/3ML) 0.083% eCW1 (On License Of [facility]) Nebulizer - Nebulizer - 04/21/2020 12:00:00 AM EST active eCW1 (On License Of [facility]) Nebulizer - Nebulizer - 04/21/2020 12:00:00 AM EST active Nebulizer - eCW1 (On License Of [facility]) NEBULIZER AND COMPRESSOR 04/21/2020 12:00:00 AM EST device 1 USE DIRECTED USE DIRECTED SOLD: 04/21/2020 [facility] Nebulizer - Nebulizer - 04/21/2020 12:00:00 AM EST active Nebulizer - eCW1 (On License Of [facility]) Albuterol 0.83 MG/ML Inhalant Solution Albuterol Sulfa te (2.5 MG/3ML) 0.083% Albuterol Sulfate (2.5 MG/3ML) 0.083% 04/21/2020 12:00:00 AM EST 3.0 {ml_as_needed} active eCW1 ([facility] Nebulizer - Nebulizer - 04/21/2020 12:00:00 AM EST active Nebulizer - eCW1 (On License Of [facility]) Nebulizer - Nebulizer - 04/21/2020 12:00:00 AM EST active Nebulizer - eCW1 (On License Of [facility]) Albuterol 0.83 MG/ML Inhalant Solution Albuterol Sulfa te (2.5 MG/3ML) 0.083% Albuterol Sulfate (2.5 MG/3ML) 0.083% 04/21/2020 12:00:00 AM EST 3.0 {ml_as_needed} active eCW1 ([facility]) Albuterol 0.83 MG/ML Inhalant Solution Albuterol Sulfa te (2.5 MG/3ML) 0.083% Albuterol Sulfate (2.5 MG/3ML) 0.083% 04/21/2020 12:00:00 AM EST 3.0 {ml_as_needed} active Albuterol Sulfate (2.5 MG/3ML) 0.083% W1 (On License Of [facility]) Nebulizer - Nebulizer - 04/21/2020 12:00:00 AM EST active Nebulizer - eCW1 (On License Of [facility]) Nebulizer/Tubing/Mouthpiece - Nebulizer/Tubing/Mouthpiece - 04/21/2020 12:00:00 AM EST active Nebulizer/Tubing/ Mouthpiece - eCW1 (On License Of [facility]) Nebulizer/Tubing/Mouthpiece - Nebulizer/Tubing/Mouthpiece - 04/21/2020 12:00:00 AM EST active Nebulizer/Tubing/ Mouthpiece - eCW1 (On License Of [facility]) Nebulizer/Tubing/Mouthpiece - Nebulizer/Tubing/Mouthpiece - 04/21/2020 12:00:00 AM EST active Nebulizer/Tubing/ Mouthpiece - eCW1 (On License Of [facility]) Nebulizer/Tubing/Mouthpiece - Nebulizer/Tubing/Mouthpiece - 04/21/2020 12:00:00 AM EST active Nebulizer/Tubing/ Mouthpiece - eCW1 (On License Of [facility]) Nebulizer/Tubing/Mouthpiece - Nebulizer/Tubing/Mouthpiece - 04/21/2020 12:00:00 AM EST active Nebulizer/Tubing/ Mouthpiece - eCW1 (On License Of [facility]) Albuterol 0.83 MG/ML Inhalant Solution Albuterol Sulfa te (2.5 MG/3ML) 0.083% Albuterol Sulfate (2.5 MG/3ML) 0.083% 04/21/2020 12:00:00 AM EST 3.0 {ml_as_needed} active Albuterol Sulfate (2.5 MG/3ML) 0.083% eCW1 (On License Of [facility]) Albuterol 0.83 MG/ML Inhalant Solution Albuterol Sulfa te (2.5 MG/3ML) 0.083% Albuterol Sulfate (2.5 MG/3ML) 0.083% 04/21/2020 12:00:00 AM EST 3.0 {ml_as_needed} active Albuterol Sulfate (2.5 MG/3ML) 0.083% eCW1 (On License Of [facility]) Albuterol 0.83 MG/ML Inhalant Solution Albuterol Sulfa te (2.5 MG/3ML) 0.083% Albuterol Sulfate (2.5 MG/3ML) 0.083% 04/21/2020 12:00:00 AM EST 3.0 {ml_as_needed} active Albuterol Sulfate (2.5 MG/3ML) 0.083% eCW1 (On License Of [facility]) Nebulizer - Nebulizer - 04/21/2020 12:00:00 AM EST active Nebulizer - eCW1 (On License Of [facility]) Nebulizer - Nebulizer - 04/21/2020 12:00:00 AM EST active Nebulizer - eCW1 (On License Of [facility]) Nebulizer/Tubing/Mouthpiece - Nebulizer/Tubing/Mouthpiece - 04/21/2020 12:00:00 AM EST active eCW1 ([facility]) Nebulizer - Nebulizer - 04/21/2020 12:00:00 AM EST active Nebulizer - eCW1 (On License Of [facility]) Albuterol 0.83 MG/ML Inhalant Solution Albuterol Sulfa te (2.5 MG/3ML) 0.083% Albuterol Sulfate (2.5 MG/3ML) 0.083% 04/21/2020 12:00:00 AM EST 3.0 {ml_as_needed} active Albuterol Sulfate (2.5 MG/3ML) 0.083% eCW1 (On License Of [facility]) Nebulizer/Tubing/Mouthpiece - Nebulizer/Tubing/Mouthpiece - 04/21/2020 12:00:00 AM EST active Nebulizer/Tubing/ Mouthpiece - eCW1 (On License Of [facility]) Nebulizer/Tubing/Mouthpiece - Nebulizer/Tubing/Mouthpiece - 04/21/2020 12:00:00 AM EST active Nebulizer/Tubing/ Mouthpiece - eCW1 (On License Of [facility]) Albuterol 0.83 MG/ML Inhalant Solution Albuterol Sulfa te (2.5 MG/3ML) 0.083% Albuterol Sulfate (2.5 MG/3ML) 0.083% 04/21/2020 12:00:00 AM EST 3.0 {ml_as_needed} active Albuterol Sulfate (2.5 MG/3ML) 0.083% eCW1 (On License Of [facility]) Nebulizer - Nebulizer - 04/21/2020 12:00:00 AM EST active Nebulizer - eCW1 ([facility] [facility] Al[facility]erol 0.83 MG/ML Inhalant Solution Albuterol Sulfa te (2.5 MG/3ML) 0.083% Albuterol Sulfate (2.5 MG/3ML) 0.083% 04/21/2020 12:00:00 AM EST 3.0 {ml_as_needed} active Albuterol Sulfate (2.5 MG/3ML) 0.083% eCW1 (On License Of [facility]) Albuterol 0.83 MG/ML Inhalant Solution Albuterol Sulfa te (2.5 MG/3ML) 0.083% Albuterol Sulfate (2.5 MG/3ML) 0.083% 04/21/2020 12:00:00 AM EST 3.0 {ml_as_needed} active Albuterol Sulfate (2.5 MG/3ML) 0.083% eCW1 (On License Of [facility]) Nebulizer/Tubing/Mouthpiece - Nebulizer/Tubing/Mouthpiece - 04/21/2020 12:00:00 AM EST active Nebulizer/Tubing/ Mouthpiece - eCW1 (On License Of [facility]) Nebulizer/Tubing/Mouthpiece - Nebulizer/Tubing/Mouthpiece - 04/21/2020 12:00:00 AM EST active Nebulizer/Tubing/ Mouthpiece - eCW1 (On License Of [facility]) Nebulizer/Tubing/Mouthpiece - Nebulizer/Tubing/Mouthpiece - 04/21/2020 12:00:00 AM EST active Nebulizer/Tubing/ Mouthpiece - eCW1 (On License Of [facility]) Nebulizer/Tubing/Mouthpiece - Nebulizer/Tubing/Mouthpiece - 04/21/2020 12:00:00 AM EST active Nebulizer/Tubing/ Mouthpiece - eCW1 (On License Of [facility]) Nebulizer/Tubing/Mouthpiece - Nebulizer/Tubing/Mouthpiece - 04/21/2020 12:00:00 AM EST active Nebulizer/Tubing/ Mouthpiece - eCW1 (On License Of [facility]) Nebulizer/Tubing/Mouthpiece - Nebulizer/Tubing/Mouthpiece - 04/21/2020 12:00:00 AM EST active Nebulizer/Tubing/ Mouthpiece - eCW1 (On License Of [facility]) Albuterol 0.83 MG/ML Inhalant Solution Albuterol Sulfa te (2.5 MG/3ML) 0.083% Albuterol Sulfate (2.5 MG/3ML) 0.083% 04/21/2020 12:00:00 AM EST 3.0 {ml_as_needed} active Albuterol Sulfate (2.5 MG/3ML) 0.083% eCW1 (On License Of [facility]) Albuterol 0.83 MG/ML Inhalant Solution Albuterol Sulfa te (2.5 MG/3ML) 0.083% Albuterol Sulfate (2.5 MG/3ML) 0.083% 04/21/2020 12:00:00 AM EST 3.0 {ml_as_needed} active Albuterol Sulfate (2.5 MG/3ML) 0.083% eCW1 (On License Of [facility]) Nebulizer - Nebulizer - 04/21/2020 12:00:00 AM EST active Nebulizer - eCW1 (On License Of [facility]) Albuterol 0.83 MG/ML Inhalant Solution Albuterol Sulfa te (2.5 MG/3ML) 0.083% Albuterol Sulfate (2.5 MG/3ML) 0.083% 04/21/2020 12:00:00 AM EST 3.0 {ml_as_needed} active Albuterol Sulfate (2.5 MG/3ML) 0.083% eCW1 (On License Of [facility]) Nebulizer - Nebulizer - 04/21/2020 12:00:00 AM EST active Nebulizer - eCW1 (On License Of [facility]) Nebulizer - Nebulizer - 04/21/2020 12:00:00 AM EST active Nebulizer - eCW1 (On License Of [facility]) Albuterol 0.83 MG/ML Inhalant Solution Albuterol Sulfa te (2.5 MG/3ML) 0.083% Albuterol Sulfate (2.5 MG/3ML) 0.083% 04/21/2020 12:00:00 AM EST 3.0 {ml_as_needed} active Albuterol Sulfate (2.5 MG/3ML) 0.083% W1 (On License Of [facility]) Nebulizer - Nebulizer - 04/21/2020 12:00:00 AM EST active Nebulizer - eCW1 (On License Of [facility]) Nebulizer/Tubing/Mouthpiece - Nebulizer/Tubing/Mouthpiece - 04/21/2020 12:00:00 AM EST active Nebulizer/Tubing/ Mouthpiece - eCW1 (On License Of [facility]) Nebulizer/Tubing/Mouthpiece - Nebulizer/Tubing/Mouthpiece - 04/21/2020 12:00:00 AM EST active Nebulizer/Tubing/ Mouthpiece - eCW1 (On License Of [facility]) Nebulizer - Nebulizer - 04/21/2020 12:00:00 AM EST active Nebulizer - eCW1 (On License Of [facility]) Nebulizer - Nebulizer - 04/21/2020 12:00:00 AM EST active Nebulizer - eCW1 (On License Of [facility]) Albuterol 0.83 MG/ML Inhalant Solution Albuterol Sulfa te (2.5 MG/3ML) 0.083% Albuterol Sulfate (2.5 MG/3ML) 0.083% 04/21/2020 12:00:00 AM EST 3.0 {ml_as_needed} active Albuterol Sulfate (2.5 MG/3ML) 0.083% eCW1 (On License Of [facility]) Albuterol 0.83 MG/ML Inhalant Solution Albuterol Sulfa te (2.5 MG/3ML) 0.083% Albuterol Sulfate (2.5 MG/3ML) 0.083% 04/21/2020 12:00:00 AM EST 3.0 {ml_as_needed} active Albuterol Sulfate (2.5 MG/3ML) 0.083% eCW1 (On License Of [facility]) Nebulizer/Tubing/Mouthpiece - Nebulizer/Tubing/Mouthpiece - 04/21/2020 12:00:00 AM EST active Nebulizer/Tubing/ Mouthpiece - eCW1 (On License Of [facility]) Albuterol 0.83 MG/ML Inhalant Solution Albuterol Sulfa te (2.5 MG/3ML) 0.083% Albuterol Sulfate (2.5 MG/3ML) 0.083% 04/21/2020 12:00:00 AM EST 3.0 {ml_as_needed} active Albuterol Sulfate (2.5 MG/3ML) 0.083% eCW1 (On License Of [facility]) Albuterol 0.83 MG/ML Inhalant Solution Albuterol Sulfa te (2.5 MG/3ML) 0.083% Albuterol Sulfate (2.5 MG/3ML) 0.083% 04/21/2020 12:00:00 AM EST 3.0 {ml_as_needed} active Albuterol Sulfate (2.5 MG/3ML) 0.083% eCW1 (On License Of [facility]) Albuterol 0.83 MG/ML Inhalant Solution Albuterol Sulfa te (2.5 MG/3ML) 0.083% Albuterol Sulfate (2.5 MG/3ML) 0.083% 04/21/2020 12:00:00 AM EST 3.0 {ml_as_needed} active Albuterol Sulfate (2.5 MG/3ML) 0.083% eCW1 (On License Of [facility]) Albuterol 0.83 MG/ML Inhalant Solution Albuterol Sulfa te (2.5 MG/3ML) 0.083% Albuterol Sulfate (2.5 MG/3ML) 0.083% 04/21/2020 12:00:00 AM EST 3.0 {ml_as_needed} active eCW1 ([facility]) Nebulizer - Nebulizer - 04/21/2020 12:00:00 AM EST active Nebulizer - eCW1 (On License Of [facility]) Nebulizer - Nebulizer - 04/21/2020 12:00:00 AM EST active Nebulizer - eCW1 (On License Of [facility]) Nebulizer - Nebulizer - 04/21/2020 12:00:00 AM EST active Nebulizer - eCW1 (On License Of [facility]) Albuterol 0.83 MG/ML Inhalant Solution Albuterol Sulfa te (2.5 MG/3ML) 0.083% Albuterol Sulfate (2.5 MG/3ML) 0.083% 04/21/2020 12:00:00 AM EST 3.0 {ml_as_needed} active Albuterol Sulfate (2.5 MG/3ML) 0.083% W1 (On License Of [facility]) Nebulizer/Tubing/Mouthpiece - Nebulizer/Tubing/Mouthpiece - 04/21/2020 12:00:00 AM EST active Nebulizer/Tubing/ Mouthpiece - eCW1 (On License Of [facility]) Albuterol 0.83 MG/ML Inhalant Solution Albuterol Sulfa te (2.5 MG/3ML) 0.083% Albuterol Sulfate (2.5 MG/3ML) 0.083% 04/21/2020 12:00:00 AM EST 3.0 {ml_as_needed} active eCW1 ([facility]) Albuterol 0.83 MG/ML Inhalant Solution Albuterol Sulfa te (2.5 MG/3ML) 0.083% Albuterol Sulfate (2.5 MG/3ML) 0.083% 04/21/2020 12:00:00 AM EST 3.0 {ml_as_needed} active Albuterol Sulfate (2.5 MG/3ML) 0.083% eCW1 (On License Of [facility]) Nebulizer/Tubing/Mouthpiece - Nebulizer/Tubing/Mouthpiece - 04/21/2020 12:00:00 AM EST active Nebulizer/Tubing/ Mouthpiece - eCW1 (On License Of [facility]) Nebulizer - Nebulizer - 04/21/2020 12:00:00 AM EST active Nebulizer - eCW1 (On License Of [facility]) Nebulizer/Tubing/Mouthpiece - Nebulizer/Tubing/Mouthpiece - 04/21/2020 12:00:00 AM EST active eCW1 ([facility]) Nebulizer/Tubing/Mouthpiece - Nebulizer/Tubing/Mouthpiece - 04/21/2020 12:00:00 AM EST active Nebulizer/Tubing/ Mouthpiece - eCW1 (On License Of [facility]) Albuterol 0.83 MG/ML Inhalant Solution Albuterol Sulfa te (2.5 MG/3ML) 0.083% Albuterol Sulfate (2.5 MG/3ML) 0.083% 04/21/2020 12:00:00 AM EST 3.0 {ml_as_needed} active Albuterol Sulfate (2.5 MG/3ML) 0.083% eCW1 (On License Of [facility]) Nebulizer - Nebulizer - 04/21/2020 12:00:00 AM EST active Nebulizer - eCW1 (On License Of [facility]) Nebulizer/Tubing/Mouthpiece - Nebulizer/Tubing/Mouthpiece - 04/21/2020 12:00:00 AM EST active Nebulizer/Tubing/ Mouthpiece - eCW1 (On License Of [facility]) Nebulizer - Nebulizer - 04/21/2020 12:00:00 AM EST active Nebulizer - eCW1 (On License Of [facility]) Nebulizer - Nebulizer - 04/21/2020 12:00:00 AM EST active Nebulizer - eCW1 (On License Of [facility]) Nebulizer - Nebulizer - 04/21/2020 12:00:00 AM EST active Nebulizer - eCW1 (On License Of [facility]) Nebulizer/Tubing/Mouthpiece - Nebulizer/Tubing/Mouthpiece - 04/21/2020 12:00:00 AM EST active Nebulizer/Tubing/ Mouthpiece - eCW1 (On License Of [facility]) Albuterol 0.83 MG/ML Inhalant Solution Albuterol Sulfa te (2.5 MG/3ML) 0.083% Albuterol Sulfate (2.5 MG/3ML) 0.083% 04/21/2020 12:00:00 AM EST 3.0 {ml_as_needed} active Albuterol Sulfate (2.5 MG/3ML) 0.083% eCW1 (On License Of [facility]) Albuterol 0.83 MG/ML Inhalant Solution Albuterol Sulfa te (2.5 MG/3ML) 0.083% Albuterol Sulfate (2.5 MG/3ML) 0.083% 04/21/2020 12:00:00 AM EST 3.0 {ml_as_needed} active Albuterol Sulfate (2.5 MG/3ML) 0.083% eCW1 (On License Of [facility]) Nebulizer - Nebulizer - 04/21/2020 12:00:00 AM EST active eCW1 (On License Of [facility]) Nebulizer - Nebulizer - 04/21/2020 12:00:00 AM EST active Nebulizer - eCW1 (On License Of [facility]) Nebulizer/Tubing/Mouthpiece - Nebulizer/Tubing/Mouthpiece - 04/21/2020 12:00:00 AM EST active Nebulizer/Tubing/ Mouthpiece - eCW1 (On License Of [facility]) Nebulizer/Tubing/Mouthpiece - Nebulizer/Tubing/Mouthpiece - 04/21/2020 12:00:00 AM EST active Nebulizer/Tubing/ Mouthpiece - eCW1 (On License Of [facility]) Nebulizer/Tubing/Mouthpiece - Nebulizer/Tubing/Mouthpiece - 04/21/2020 12:00:00 AM EST active Nebulizer/Tubing/ Mouthpiece - eCW1 (On License Of [facility]) Albuterol 0.83 MG/ML Inhalant Solution Albuterol Sulfa te (2.5 MG/3ML) 0.083% Albuterol Sulfate (2.5 MG/3ML) 0.083% 04/21/2020 12:00:00 AM EST 3.0 {ml_as_needed} active Albuterol Sulfate (2.5 MG/3ML) 0.083% eCW1 (On License Of [facility]) Nebulizer - Nebulizer - 04/21/2020 12:00:00 AM EST active Nebulizer - eCW1 (On License Of [facility]) Albuterol 0.83 MG/ML Inhalant Solution Albuterol Sulfa te (2.5 MG/3ML) 0.083% Albuterol Sulfate (2.5 MG/3ML) 0.083% 04/21/2020 12:00:00 AM EST 3.0 {ml_as_needed} active Albuterol Sulfate (2.5 MG/3ML) 0.083% eCW1 (On License Of [facility]) Albuterol 0.83 MG/ML Inhalant Solution Albuterol Sulfa te (2.5 MG/3ML) 0.083% Albuterol Sulfate (2.5 MG/3ML) 0.083% 04/21/2020 12:00:00 AM EST 3.0 {ml_as_needed} active Albuterol Sulfate (2.5 MG/3ML) 0.083% eCW1 (On License Of [facility]) Albuterol 0.83 MG/ML Inhalant Solution Albuterol Sulfa te (2.5 MG/3ML) 0.083% Albuterol Sulfate (2.5 MG/3ML) 0.083% 04/21/2020 12:00:00 AM EST 3.0 {ml_as_needed} active Albuterol Sulfate (2.5 MG/3ML) 0.083% eCW1 (On License Of [facility]) Nebulizer/Tubing/Mouthpiece - Nebulizer/Tubing/Mouthpiece - 04/21/2020 12:00:00 AM EST active Nebulizer/Tubing/ Mouthpiece - eCW1 (On License Of [facility]) Nebulizer - Nebulizer - 04/21/2020 12:00:00 AM EST active Nebulizer - eCW1 (On License Of [facility]) Nebulizer/Tubing/Mouthpiece - Nebulizer/Tubing/Mouthpiece - 04/21/2020 12:00:00 AM EST active Nebulizer/Tubing/ Mouthpiece - eCW1 (On License Of [facility]) Nebulizer - Nebulizer - 04/21/2020 12:00:00 AM EST active Nebulizer - eCW1 (On License Of [facility]) Nebulizer - Nebulizer - 04/21/2020 12:00:00 AM EST active Nebulizer - eCW1 (On License Of [facility]) Albuterol 0.83 MG/ML Inhalant Solution Albuterol Sulfa te (2.5 MG/3ML) 0.083% Albuterol Sulfate (2.5 MG/3ML) 0.083% 04/21/2020 12:00:00 AM EST 3.0 {ml_as_needed} active Albuterol Sulfate (2.5 MG/3ML) 0.083% eCW1 (On License Of [facility]) Nebulizer/Tubing/Mouthpiece - Nebulizer/Tubing/Mouthpiece - 04/21/2020 12:00:00 AM EST active Nebulizer/Tubing/ Mouthpiece - eCW1 (On License Of [facility]) Nebulizer/Tubing/Mouthpiece - Nebulizer/Tubing/Mouthpiece - 04/21/2020 12:00:00 AM EST active Nebulizer/Tubing/ Mouthpiece - eCW1 (On License Of [facility]) Nebulizer - Nebulizer - 04/21/2020 12:00:00 AM EST active Nebulizer - eCW1 (On License Of [facility]) Albuterol 0.83 MG/ML Inhalant Solution Albuterol Sulfa te (2.5 MG/3ML) 0.083% Albuterol Sulfate (2.5 MG/3ML) 0.083% 04/21/2020 12:00:00 AM EST 3.0 {ml_as_needed} active Albuterol Sulfate (2.5 MG/3ML) 0.083% eCW1 (On License Of [facility]) Nebulizer/Tubing/Mouthpiece - Nebulizer/Tubing/Mouthpiece - 04/21/2020 12:00:00 AM EST active Nebulizer/Tubing/ Mouthpiece - eCW1 (On License Of [facility]) Nebulizer/Tubing/Mouthpiece - Nebulizer/Tubing/Mouthpiece - 04/21/2020 12:00:00 AM EST active eCW1 ([facility]) Nebulizer/Tubing/Mouthpiece - Nebulizer/Tubing/Mouthpiece - 04/21/2020 12:00:00 AM EST active Nebulizer/Tubing/ Mouthpiece - eCW1 (On License Of [facility]) Albuterol 0.83 MG/ML Inhalant Solution Albuterol Sulfa te (2.5 MG/3ML) 0.083% Albuterol Sulfate (2.5 MG/3ML) 0.083% 04/21/2020 12:00:00 AM EST 3.0 {ml_as_needed} active Albuterol Sulfate (2.5 MG/3ML) 0.083% eCW1 (On License Of [facility]) Nebulizer - Nebulizer - 04/21/2020 12:00:00 AM EST active Nebulizer - eCW1 (On License Of [facility]) Nebulizer - Nebulizer - 04/21/2020 12:00:00 AM EST active Nebulizer - eCW1 (On License Of [facility]) Nebulizer - Nebulizer - 04/21/2020 12:00:00 AM EST active Nebulizer - eCW1 (On License Of [facility]) Nebulizer - Nebulizer - 04/21/2020 12:00:00 AM EST active eCW1 (On License Of [facility]) Albuterol 0.83 MG/ML Inhalant Solution Albuterol Sulfa te (2.5 MG/3ML) 0.083% Albuterol Sulfate (2.5 MG/3ML) 0.083% 04/21/2020 12:00:00 AM EST 3.0 {ml_as_needed} active Albuterol Sulfate (2.5 MG/3ML) 0.083% eCW1 (On License Of [facility]) Albuterol 0.83 MG/ML Inhalant Solution Albuterol Sulfa te (2.5 MG/3ML) 0.083% Albuterol Sulfate (2.5 MG/3ML) 0.083% 04/21/2020 12:00:00 AM EST 3.0 {ml_as_needed} active Albuterol Sulfate (2.5 MG/3ML) 0.083% eCW1 (On License Of [facility]) Nebulizer/Tubing/Mouthpiece - Nebulizer/Tubing/Mouthpiece - 04/21/2020 12:00:00 AM EST active Nebulizer/Tubing/ Mouthpiece - eCW1 (On License Of [facility]) Nebulizer/Tubing/Mouthpiece - Nebulizer/Tubing/Mouthpiece - 04/21/2020 12:00:00 AM EST active Nebulizer/Tubing/ Mouthpiece - eCW1 (On License Of [facility]) Amlodipine 2.5 MG Oral Tablet AmLODIPine Besylate 2.5 MG AmLODIPine Besylate 2.5 MG 04/21/2020 12:00:00 AM EST active AmLODIPine Besylate 2.5 MG eCW1 (On License Of [facility]) Nebulizer - Nebulizer - 04/21/2020 12:00:00 AM EST active Nebulizer - eCW1 (On License Of [facility]) Albuterol 0.83 MG/ML Inhalant Solution Albuterol Sulfa te (2.5 MG/3ML) 0.083% Albuterol Sulfate (2.5 MG/3ML) 0.083% 04/21/2020 12:00:00 AM EST 3.0 {ml_as_needed} active Albuterol Sulfate (2.5 MG/3ML) 0.083% eCW1 (On License Of [facility]) Nebulizer - Nebulizer - 04/21/2020 12:00:00 AM EST active Nebulizer - eCW1 (On License Of [facility]) Nebulizer - Nebulizer - 04/21/2020 12:00:00 AM EST active Nebulizer - eCW1 (On License Of [facility]) Nebulizer/Tubing/Mouthpiece - Nebulizer/Tubing/Mouthpiece - 04/21/2020 12:00:00 AM EST active Nebulizer/Tubing/ Mouthpiece - eCW1 (On License Of [facility]) Nebulizer - Nebulizer - 04/21/2020 12:00:00 AM EST active Nebulizer - eCW1 (On License Of [facility]) Nebulizer/Tubing/Mouthpiece - Nebulizer/Tubing/Mouthpiece - 04/21/2020 12:00:00 AM EST active Nebulizer/Tubing/ Mouthpiece - eCW1 (On License Of [facility]) Nebulizer - Nebulizer - 04/21/2020 12:00:00 AM EST active Nebulizer - eCW1 (On License Of [facility]) Nebulizer - Nebulizer - 04/21/2020 12:00:00 AM EST active Nebulizer - eCW1 (On License Of [facility]) Nebulizer/Tubing/Mouthpiece - Nebulizer/Tubing/Mouthpiece - 04/21/2020 12:00:00 AM EST active Nebulizer/Tubing/ Mouthpiece - eCW1 (On License Of [facility]) 2.5 mg /3 mL (0.083 %) 04/21/2020 12:00:00 AM EST solu tion for nebulization 300 INHALE ONE VIAL VIA NEBULIZER EVERY 6 HO URS NEEDED INHALE ONE VIAL VIA NEBULIZER EVERY 6 HOURS NEEDED SOLD: 04/21/2020 [facility] Nebulizer - Nebulizer - 04/21/2020 12:00:00 AM EST active Nebulizer - eCW1 (On License Of [facility]) Nebulizer - Nebulizer - 04/21/2020 12:00:00 AM EST active Nebulizer - eCW1 (On License Of [facility]) Nebulizer/Tubing/Mouthpiece - Nebulizer/Tubing/Mouthpiece - 04/21/2020 12:00:00 AM EST active Nebulizer/Tubing/ Mouthpiece - eCW1 (On License Of [facility]) Albuterol 0.83 MG/ML Inhalant Solution Albuterol Sulfa te (2.5 MG/3ML) 0.083% Albuterol Sulfate (2.5 MG/3ML) 0.083% 04/21/2020 12:00:00 AM EST 3.0 {ml_as_needed} active Albuterol Sulfate (2.5 MG/3ML) 0.083% eCW1 (On License Of [facility]) Nebulizer - Nebulizer - 04/21/2020 12:00:00 AM EST active Nebulizer - eCW1 (On License Of [facility]) Nebulizer/Tubing/Mouthpiece - Nebulizer/Tubing/Mouthpiece - 04/21/2020 12:00:00 AM EST active Nebulizer/Tubing/ Mouthpiece - eCW1 (On License Of [facility]) Nebulizer/Tubing/Mouthpiece - Nebulizer/Tubing/Mouthpiece - 04/21/2020 12:00:00 AM EST active Nebulizer/Tubing/ Mouthpiece - eCW1 (On License Of [facility]) Nebulizer - Nebulizer - 04/21/2020 12:00:00 AM EST active Nebulizer - eCW1 (On License Of [facility]) Albuterol 0.83 MG/ML Inhalant Solution Albuterol Sulfa te (2.5 MG/3ML) 0.083% Albuterol Sulfate (2.5 MG/3ML) 0.083% 04/21/2020 12:00:00 AM EST 3.0 {ml_as_needed} active Albuterol Sulfate (2.5 MG/3ML) 0.083% W1 (On License Of [facility]) Nebulizer - Nebulizer - 04/21/2020 12:00:00 AM EST active Nebulizer - eCW1 (On License Of [facility]) Albuterol 0.83 MG/ML Inhalant Solution Albuterol Sulfa te (2.5 MG/3ML) 0.083% Albuterol Sulfate (2.5 MG/3ML) 0.083% 04/21/2020 12:00:00 AM EST 3.0 {ml_as_needed} active Albuterol Sulfate (2.5 MG/3ML) 0.083% W1 (On License Of [facility]) Albuterol 0.83 MG/ML Inhalant Solution Albuterol Sulfa te (2.5 MG/3ML) 0.083% Albuterol Sulfate (2.5 MG/3ML) 0.083% 04/21/2020 12:00:00 AM EST 3.0 {ml_as_needed} active Albuterol Sulfate (2.5 MG/3ML) 0.083% eCW1 (On License Of [facility]) Albuterol 0.83 MG/ML Inhalant Solution Albuterol Sulfa te (2.5 MG/3ML) 0.083% Albuterol Sulfate (2.5 MG/3ML) 0.083% 04/21/2020 12:00:00 AM EST 3.0 {ml_as_needed} active Albuterol Sulfate (2.5 MG/3ML) 0.083% eCW1 (On License Of [facility]) Nebulizer/Tubing/Mouthpiece - Nebulizer/Tubing/Mouthpiece - 04/21/2020 12:00:00 AM EST active Nebulizer/Tubing/ Mouthpiece - eCW1 (On License Of [facility]) Nebulizer/Tubing/Mouthpiece - Nebulizer/Tubing/Mouthpiece - 04/21/2020 12:00:00 AM EST active Nebulizer/Tubing/ Mouthpiece - eCW1 (On License Of [facility]) Albuterol 0.83 MG/ML Inhalant Solution Albuterol Sulfa te (2.5 MG/3ML) 0.083% Albuterol Sulfate (2.5 MG/3ML) 0.083% 04/21/2020 12:00:00 AM EST 3.0 {ml_as_needed} active Albuterol Sulfate (2.5 MG/3ML) 0.083% eCW1 (On [facility] Of [facility]) Albuterol 0.83 MG/ML Inhalant Solution Albuterol Sulfa te (2.5 MG/3ML) 0.083% Albuterol Sulfate (2.5 MG/3ML) 0.083% 04/21/2020 12:00:00 AM EST 3.0 {ml_as_needed} active Albuterol Sulfate (2.5 MG/3ML) 0.083% W1 (On License Of [facility]) Nebulizer/Tubing/Mouthpiece - Nebulizer/Tubing/Mouthpiece - 04/21/2020 12:00:00 AM EST active Nebulizer/Tubing/ Mouthpiece - eCW1 (On [facility] Of [facility]) Albuterol 0.83 MG/ML Inhalant Solution Albuterol Sulfa te (2.5 MG/3ML) 0.083% Albuterol Sulfate (2.5 MG/3ML) 0.083% 04/21/2020 12:00:00 AM EST 3.0 {ml_as_needed} active Albuterol Sulfate (2.5 MG/3ML) 0.083% eCW1 (On License Of [facility]) Nebulizer/Tubing/Mouthpiece - Nebulizer/Tubing/Mouthpiece - 04/21/2020 12:00:00 AM EST active Nebulizer/Tubing/ Mouthpiece - eCW1 (On License Of [facility]) Albuterol 0.83 MG/ML Inhalant Solution Albuterol Sulfa te (2.5 MG/3ML) 0.083% Albuterol Sulfate (2.5 MG/3ML) 0.083% 04/21/2020 12:00:00 AM EST 3.0 {ml_as_needed} active Albuterol Sulfate (2.5 MG/3ML) 0.083% eCW1 (On License Of [facility]) Nebulizer/Tubing/Mouthpiece - Nebulizer/Tubing/Mouthpiece - 04/21/2020 12:00:00 AM EST active Nebulizer/Tubing/ Mouthpiece - eCW1 (On License Of [facility]) Nebulizer - Nebulizer - 04/21/2020 12:00:00 AM EST active Nebulizer - eCW1 (On License Of [facility]) Nebulizer - Nebulizer - 04/21/2020 12:00:00 AM EST active Nebulizer - eCW1 (On [facility] Of [facility]) Albuterol 0.83 MG/ML Inhalant Solution Albuterol Sulfa te (2.5 MG/3ML) 0.083% Albuterol Sulfate (2.5 MG/3ML) 0.083% 04/21/2020 12:00:00 AM EST 3.0 {ml_as_needed} active Albuterol Sulfate (2.5 MG/3ML) 0.083% eCW1 (On License Of [facility]) Nebulizer/Tubing/Mouthpiece - Nebulizer/Tubing/Mouthpiece - 04/21/2020 12:00:00 AM EST active Nebulizer/Tubing/ Mouthpiece - eCW1 (On License Of [facility]) Albuterol 0.83 MG/ML Inhalant Solution Albuterol Sulfa te (2.5 MG/3ML) 0.083% Albuterol Sulfate (2.5 MG/3ML) 0.083% 04/21/2020 12:00:00 AM EST 3.0 {ml_as_needed} active Albuterol Sulfate (2.5 MG/3ML) 0.083% eCW1 (On License Of [facility]) Nebulizer - Nebulizer - 04/21/2020 12:00:00 AM EST active Nebulizer - eCW1 (On License Of [facility]) Nebulizer/Tubing/Mouthpiece - Nebulizer/Tubing/Mouthpiece - 04/21/2020 12:00:00 AM EST active Nebulizer/Tubing/ Mouthpiece - eCW1 (On License Of [facility]) Nebulizer/Tubing/Mouthpiece - Nebulizer/Tubing/Mouthpiece - 04/21/2020 12:00:00 AM EST active Nebulizer/Tubing/ Mouthpiece - eCW1 (On License Of [facility]) Nebulizer/Tubing/Mouthpiece - Nebulizer/Tubing/Mouthpiece - 04/21/2020 12:00:00 AM EST active Nebulizer/Tubing/ Mouthpiece - eCW1 (On License Of [facility]) Albuterol 0.83 MG/ML Inhalant Solution Albuterol Sulfa te (2.5 MG/3ML) 0.083% Albuterol Sulfate (2.5 MG/3ML) 0.083% 04/21/2020 12:00:00 AM EST 3.0 {ml_as_needed} active Albuterol Sulfate (2.5 MG/3ML) 0.083% W1 (On License Of [facility]) Nebulizer/Tubing/Mouthpiece - Nebulizer/Tubing/Mouthpiece - 04/21/2020 12:00:00 AM EST active Nebulizer/Tubing/ Mouthpiece - eCW1 (On License Of [facility]) Nebulizer - Nebulizer - 04/21/2020 12:00:00 AM EST active Nebulizer - eCW1 (On License Of [facility]) Nebulizer - Nebulizer - 04/21/2020 12:00:00 AM EST active Nebulizer - eCW1 (On License Of [facility]) Albuterol 0.83 MG/ML Inhalant Solution Albuterol Sulfa te (2.5 MG/3ML) 0.083% Albuterol Sulfate (2.5 MG/3ML) 0.083% 04/21/2020 12:00:00 AM EST 3.0 {ml_as_needed} active Albuterol Sulfate (2.5 MG/3ML) 0.083% eCW1 (On License Of [facility]) Albuterol 0.83 MG/ML Inhalant Solution Albuterol Sulfa te (2.5 MG/3ML) 0.083% Albuterol Sulfate (2.5 MG/3ML) 0.083% 04/21/2020 12:00:00 AM EST 3.0 {ml_as_needed} active Albuterol Sulfate (2.5 MG/3ML) 0.083% eCW1 (On License Of [facility]) Albuterol 0.83 MG/ML Inhalant Solution Albuterol Sulfa te (2.5 MG/3ML) 0.083% Albuterol Sulfate (2.5 MG/3ML) 0.083% 04/21/2020 12:00:00 AM EST 3.0 {ml_as_needed} active Albuterol Sulfate (2.5 MG/3ML) 0.083% eCW1 (On License Of [facility]) Nebulizer - Nebulizer - 04/21/2020 12:00:00 AM EST active Nebulizer - eCW1 (On License Of [facility]) Nebulizer/Tubing/Mouthpiece - Nebulizer/Tubing/Mouthpiece - 04/21/2020 12:00:00 AM EST active Nebulizer/Tubing/ Mouthpiece - eCW1 (On License Of [facility]) Nebulizer/Tubing/Mouthpiece - Nebulizer/Tubing/Mouthpiece - 04/21/2020 12:00:00 AM EST active Nebulizer/Tubing/ Mouthpiece - eCW1 (On License Of [facility]) Nebulizer/Tubing/Mouthpiece - Nebulizer/Tubing/Mouthpiece - 04/21/2020 12:00:00 AM EST active Nebulizer/Tubing/ Mouthpiece - eCW1 (On License Of [facility]) Albuterol 0.83 MG/ML Inhalant Solution Albuterol Sulfa te (2.5 MG/3ML) 0.083% Albuterol Sulfate (2.5 MG/3ML) 0.083% 04/21/2020 12:00:00 AM EST 3.0 {ml_as_needed} active Albuterol Sulfate (2.5 MG/3ML) 0.083% eCW1 (On License Of [facility]) Albuterol 0.83 MG/ML Inhalant Solution Albuterol Sulfa te (2.5 MG/3ML) 0.083% Albuterol Sulfate (2.5 MG/3ML) 0.083% 04/21/2020 12:00:00 AM EST 3.0 {ml_as_needed} active Albuterol Sulfate (2.5 MG/3ML) 0.083% eCW1 (On License Of [facility]) Nebulizer - Nebulizer - 04/21/2020 12:00:00 AM EST active Nebulizer - eCW1 (On License Of [facility]) Nebulizer - Nebulizer - 04/21/2020 12:00:00 AM EST active Nebulizer - eCW1 (On License Of [facility]) Nebulizer/Tubing/Mouthpiece - Nebulizer/Tubing/Mouthpiece - 04/21/2020 12:00:00 AM EST active Nebulizer/Tubing/ Mouthpiece - eCW1 (On License Of [facility]) Nebulizer - Nebulizer - 04/21/2020 12:00:00 AM EST active Nebulizer - eCW1 [facility] [facility]) Nebulizer/Tubing/Mouthpiece - Nebulizer/Tubing/Mouthpiece - 04/21/2020 12:00:00 AM EST active Nebulizer/Tubing/ Mouthpiece - eCW1 (On License Of [facility]) Albuterol 0.83 MG/ML Inhalant Solution Albuterol Sulfa te (2.5 MG/3ML) 0.083% Albuterol Sulfate (2.5 MG/3ML) 0.083% 04/21/2020 12:00:00 AM EST 3.0 {ml_as_needed} active Albuterol Sulfate (2.5 MG/3ML) 0.083% eCW1 (On License Of [facility]) Albuterol 0.83 MG/ML Inhalant Solution Albuterol Sulfa te (2.5 MG/3ML) 0.083% Albuterol Sulfate (2.5 MG/3ML) 0.083% 04/21/2020 12:00:00 AM EST 3.0 {ml_as_needed} active Albuterol Sulfate (2.5 MG/3ML) 0.083% eCW1 (On License Of [facility]) Nebulizer - Nebulizer - 04/21/2020 12:00:00 AM EST active Nebulizer - eCW1 (On License Of [facility]) Albuterol 0.83 MG/ML Inhalant Solution Albuterol Sulfa te (2.5 MG/3ML) 0.083% Albuterol Sulfate (2.5 MG/3ML) 0.083% 04/21/2020 12:00:00 AM EST 3.0 {ml_as_needed} active Albuterol Sulfate (2.5 MG/3ML) 0.083% eCW1 (On License Of [facility]) Nebulizer/Tubing/Mouthpiece - Nebulizer/Tubing/Mouthpiece - 04/21/2020 12:00:00 AM EST active Nebulizer/Tubing/ Mouthpiece - eCW1 (On License Of [facility]) Albuterol 0.83 MG/ML Inhalant Solution Albuterol Sulfa te (2.5 MG/3ML) 0.083% Albuterol Sulfate (2.5 MG/3ML) 0.083% 04/21/2020 12:00:00 AM EST 3.0 {ml_as_needed} active Albuterol Sulfate (2.5 MG/3ML) 0.083% eCW1 (On License Of [facility]) Albuterol 0.83 MG/ML Inhalant Solution Albuterol Sulfa te (2.5 MG/3ML) 0.083% Albuterol Sulfate (2.5 MG/3ML) 0.083% 04/21/2020 12:00:00 AM EST 3.0 {ml_as_needed} active Albuterol Sulfate (2.5 MG/3ML) 0.083% eCW1 (On License Of [facility]) Nebulizer - Nebulizer - 04/21/2020 12:00:00 AM EST active Nebulizer - eCW1 (On License Of [facility]) Nebulizer/Tubing/Mouthpiece - Nebulizer/Tubing/Mouthpiece - 04/21/2020 12:00:00 AM EST active Nebulizer/Tubing/ Mouthpiece - eCW1 (On License Of [facility]) Nebulizer/Tubing/Mouthpiece - Nebulizer/Tubing/Mouthpiece - 04/21/2020 12:00:00 AM EST active Nebulizer/Tubing/ Mouthpiece - eCW1 (On License Of [facility]) Nebulizer - Nebulizer - 04/21/2020 12:00:00 AM EST active Nebulizer - eCW1 (On License Of [facility]) Nebulizer - Nebulizer - 04/21/2020 12:00:00 AM EST active Nebulizer - eCW1 (On License Of [facility]) Nebulizer/Tubing/Mouthpiece - Nebulizer/Tubing/Mouthpiece - 04/21/2020 12:00:00 AM EST active Nebulizer/Tubing/ Mouthpiece - eCW1 (On License Of [facility]) Albuterol 0.83 MG/ML Inhalant Solution Albuterol Sulfa te (2.5 MG/3ML) 0.083% Albuterol Sulfate (2.5 MG/3ML) 0.083% 04/21/2020 12:00:00 AM EST 3.0 {ml_as_needed} active Albuterol Sulfate (2.5 MG/3ML) 0.083% eCW1 (On License Of [facility]) Albuterol 0.83 MG/ML Inhalant Solution Albuterol Sulfa te (2.5 MG/3ML) 0.083% Albuterol Sulfate (2.5 MG/3ML) 0.083% 04/21/2020 12:00:00 AM EST 3.0 {ml_as_needed} active Albuterol Sulfate (2.5 MG/3ML) 0.083% eCW1 (On License Of [facility]) Nebulizer/Tubing/Mouthpiece - Nebulizer/Tubing/Mouthpiece - 04/21/2020 12:00:00 AM EST active eCW1 ([facility]) Nebulizer/Tubing/Mouthpiece - Nebulizer/Tubing/Mouthpiece - 04/21/2020 12:00:00 AM EST active Nebulizer/Tubing/ Mouthpiece - eCW1 (On License Of [facility]) Albuterol 0.83 MG/ML Inhalant Solution Albuterol Sulfa te (2.5 MG/3ML) 0.083% Albuterol Sulfate (2.5 MG/3ML) 0.083% 04/21/2020 12:00:00 AM EST 3.0 {ml_as_needed} active Albuterol Sulfate (2.5 MG/3ML) 0.083% eCW1 (On License Of [facility]) Nebulizer - Nebulizer - 04/21/2020 12:00:00 AM EST active Nebulizer - eCW1 (On License Of [facility]) Nebulizer - Nebulizer - 04/21/2020 12:00:00 AM EST active Nebulizer - eCW1 (On License Of [facility]) Nebulizer - Nebulizer - 04/21/2020 12:00:00 AM EST active Nebulizer - eCW1 (On License Of [facility]) Nebulizer/Tubing/Mouthpiece - Nebulizer/Tubing/Mouthpiece - 04/21/2020 12:00:00 AM EST active Nebulizer/Tubing/ Mouthpiece - eCW1 (On License Of [facility]) Nebulizer - Nebulizer - 04/21/2020 12:00:00 AM EST active Nebulizer - eCW1 (On License Of [facility]) 2.5 mg 04/21/2020 12:00:00 AM EST tablet 30 TAKE ONE TABLET BY MOUTH ONCE DAILY FOR BLOOD PRESSURE OVER 140/90 TAKE ONE TABLET BY MOUTH ONCE DAILY FOR BLOOD PRESSURE OVER 140/90 SOLD: 04/21/2020 [facility] Nebulizer/Tubing/Mouthpiece - Nebulizer/Tubing/Mouthpiece - 04/21/2020 12:00:00 AM EST active Nebulizer/Tubing/ Mouthpiece - eCW1 (On License Of [facility]) Nebulizer/Tubing/Mouthpiece - Nebulizer/Tubing/Mouthpiece - 04/21/2020 12:00:00 AM EST active Nebulizer/Tubing/ Mouthpiece - eCW1 (On License Of [facility]) Nebulizer - Nebulizer - 04/21/2020 12:00:00 AM EST active eCW1 (On License Of [facility]) Albuterol 0.83 MG/ML Inhalant Solution Albuterol Sulfa te (2.5 MG/3ML) 0.083% Albuterol Sulfate (2.5 MG/3ML) 0.083% 04/21/2020 12:00:00 AM EST 3.0 {ml_as_needed} active Albuterol Sulfate (2.5 MG/3ML) 0.083% eCW1 (On License Of [facility]) Albuterol 0.83 MG/ML Inhalant Solution Albuterol Sulfa te (2.5 MG/3ML) 0.083% Albuterol Sulfate (2.5 MG/3ML) 0.083% 04/21/2020 12:00:00 AM EST 3.0 {ml_as_needed} active Albuterol Sulfate (2.5 MG/3ML) 0.083% eCW1 (On License Of [facility]) Albuterol 0.83 MG/ML Inhalant Solution Albuterol Sulfa te (2.5 MG/3ML) 0.083% Albuterol Sulfate (2.5 MG/3ML) 0.083% 04/21/2020 12:00:00 AM EST 3.0 {ml_as_needed} active Albuterol Sulfate (2.5 MG/3ML) 0.083% eCW1 (On License Of [facility]) Nebulizer - Nebulizer - 04/21/2020 12:00:00 AM EST active Nebulizer - eCW1 (On License Of [facility]) Albuterol 0.83 MG/ML Inhalant Solution Albuterol Sulfa te (2.5 MG/3ML) 0.083% Albuterol Sulfate (2.5 MG/3ML) 0.083% 04/21/2020 12:00:00 AM EST 3.0 {ml_as_needed} active Albuterol Sulfate (2.5 MG/3ML) 0.083% eCW1 (On License Of [facility]) Albuterol 0.83 MG/ML Inhalant Solution Albuterol Sulfa te (2.5 MG/3ML) 0.083% Albuterol Sulfate (2.5 MG/3ML) 0.083% 04/21/2020 12:00:00 AM EST 3.0 {ml_as_needed} active Albuterol Sulfate (2.5 MG/3ML) 0.083% W1 (On License Of [facility]) Nebulizer/Tubing/Mouthpiece - Nebulizer/Tubing/Mouthpiece - 04/21/2020 12:00:00 AM EST active Nebulizer/Tubing/ Mouthpiece - eCW1 (On License Of [facility]) Nebulizer - Nebulizer - 04/21/2020 12:00:00 AM EST active Nebulizer - eCW1 (On License Of [facility]) Nebulizer - Nebulizer - 04/21/2020 12:00:00 AM EST active Nebulizer - eCW1 (On License Of [facility]) Nebulizer/Tubing/Mouthpiece - Nebulizer/Tubing/Mouthpiece - 04/21/2020 12:00:00 AM EST active Nebulizer/Tubing/ Mouthpiece - eCW1 (On License Of [facility]) Albuterol 0.83 MG/ML Inhalant Solution Albuterol Sulfa te (2.5 MG/3ML) 0.083% Albuterol Sulfate (2.5 MG/3ML) 0.083% 04/21/2020 12:00:00 AM EST 3.0 {ml_as_needed} active Albuterol Sulfate (2.5 MG/3ML) 0.083% eCW1 (On License Of [facility]) Albuterol 0.83 MG/ML Inhalant Solution Albuterol Sulfa te (2.5 MG/3ML) 0.083% Albuterol Sulfate (2.5 MG/3ML) 0.083% 04/21/2020 12:00:00 AM EST 3.0 {ml_as_needed} active Albuterol Sulfate (2.5 MG/3ML) 0.083% eCW1 (On License Of [facility]) Albuterol 0.83 MG/ML Inhalant Solution Albuterol Sulfa te (2.5 MG/3ML) 0.083% Albuterol Sulfate (2.5 MG/3ML) 0.083% 04/21/2020 12:00:00 AM EST 3.0 {ml_as_needed} active Albuterol Sulfate (2.5 MG/3ML) 0.083% eCW1 (On License Of [facility]) Albuterol 0.83 MG/ML Inhalant Solution Albuterol Sulfa te (2.5 MG/3ML) 0.083% Albuterol Sulfate (2.5 MG/3ML) 0.083% 04/21/2020 12:00:00 AM EST 3.0 {ml_as_needed} active Albuterol Sulfate (2.5 MG/3ML) 0.083% eCW1 (On License Of [facility]) Nebulizer/Tubing/Mouthpiece - Nebulizer/Tubing/Mouthpiece - 04/21/2020 12:00:00 AM EST active Nebulizer/Tubing/ Mouthpiece - eCW1 (On License Of [facility]) Albuterol 0.83 MG/ML Inhalant Solution Albuterol Sulfa te (2.5 MG/3ML) 0.083% Albuterol Sulfate (2.5 MG/3ML) 0.083% 04/21/2020 12:00:00 AM EST 3.0 {ml_as_needed} active Albuterol Sulfate (2.5 MG/3ML) 0.083% eCW1 (On License Of [facility]) Nebulizer - Nebulizer - 04/21/2020 12:00:00 AM EST active Nebulizer - eCW1 (On License Of [facility]) Nebulizer - Nebulizer - 04/21/2020 12:00:00 AM EST active Nebulizer - eCW1 (On License Of [facility]) Nebulizer/Tubing/Mouthpiece - Nebulizer/Tubing/Mouthpiece - 04/21/2020 12:00:00 AM EST active Nebulizer/Tubing/ Mouthpiece - eCW1 (On License Of [facility]) Albuterol 0.83 MG/ML Inhalant Solution Albuterol Sulfa te (2.5 MG/3ML) 0.083% Albuterol Sulfate (2.5 MG/3ML) 0.083% 04/21/2020 12:00:00 AM EST 3.0 {ml_as_needed} active Albuterol Sulfate (2.5 MG/3ML) 0.083% eCW1 (On License Of [facility]) Nebulizer - Nebulizer - 04/21/2020 12:00:00 AM EST active Nebulizer - eCW1 (On License Of [facility]) Albuterol 0.83 MG/ML Inhalant Solution Albuterol Sulfa te (2.5 MG/3ML) 0.083% Albuterol Sulfate (2.5 MG/3ML) 0.083% 04/21/2020 12:00:00 AM EST 3.0 {ml_as_needed} active Albuterol Sulfate (2.5 MG/3ML) 0.083% eCW1 (On License Of [facility]) Nebulizer/Tubing/Mouthpiece - Nebulizer/Tubing/Mouthpiece - 04/21/2020 12:00:00 AM EST active Nebulizer/Tubing/ Mouthpiece - eCW1 (On License Of [facility]) Nebulizer/Tubing/Mouthpiece - Nebulizer/Tubing/Mouthpiece - 04/21/2020 12:00:00 AM EST active Nebulizer/Tubing/ Mouthpiece - eCW1 (On License Of [facility]) INHALER, ASSIST DEVICES 04/17/2020 12:00:00 AM EST [...] Natan-Vu 04/17/2020 12:00:00 AM EST completed MEDENT ([facility], [facility]) 60 ACTUAT Albuterol 0.09 MG/ACTUAT Metered Dose Inhaler [place] Sulfate HFA 04/17/2020 12:00:00 AM EST RESPIRATORY completed MEDENT ([facility], [facility]) 100 mg 04/09/2020 12:00:00 AM EST [...] a ctive Duloxetine HCl 30 MG eCW1 (On License Of [facility]) duloxetine 30 MG Delayed Release Oral Capsule Duloxeti ne HCl 30 MG Duloxetine HCl 30 MG 03/25/2020 12:00:00 AM EST 1.0 {capsule} a ctive Duloxetine HCl 30 MG eCW1 (On License Of [facility]) duloxetine 30 MG Delayed Release Oral Capsule Duloxeti ne HCl 30 MG Duloxetine HCl 30 MG 03/25/2020 12:00:00 AM EST 1.0 {capsule} a ctive Duloxetine HCl 30 MG eCW1 (On License Of [facility]) Nortriptyline 50 MG Oral Capsule NORTRIPTYLINE HCL 03/18/2020 12 :00:00 AM EST capsule 30 TAKE ONE CAPSULE BY MOUTH AT BED TIME TAKE ONE CAPSULE BY MOUTH AT BEDTIME SOLD: 03/19/2020 [facility] carvedilol 12.5 MG Oral Tablet Carvedilol 12.5 MG Carvedilol 12.5 MG 03/17/2020 12:00:00 AM EST active Carvedil ol 12.5 MG eCW1 (On License Of [facility]) carvedilol 6.25 MG Oral Tablet Carvedilol 6.25 MG Carvedilol 6.25 MG 03/17/2020 12:00:00 AM EST 1.0 {tablet_with_food} active Carvedilol 6.25 MG eCW1 (On License Of [facility]) carvedilol 12.5 MG Oral Tablet Carvedilol 12.5 MG Carvedilol 12.5 MG 03/17/2020 12:00:00 AM EST active Carvedil ol 12.5 MG eCW1 (On License Of [facility]) carvedilol 12.5 MG Oral Tablet Carvedilol 12.5 MG Carvedilol 12.5 MG 03/17/2020 12:00:00 AM EST 1.0 {tablet_with_food} active Carvedilol 12.5 MG eCW1 (On License Of [facility]) carvedilol 12.5 MG Oral Tablet Carvedilol 12.5 MG Carvedilol 12.5 MG 03/17/2020 12:00:00 AM EST 1.0 {tablet_with_food} active Carvedilol 12.5 MG eCW1 (On License Of [facility]) carvedilol 12.5 MG Oral Tablet Carvedilol 12.5 MG Carvedilol 12.5 MG 03/17/2020 12:00:00 AM EST 1.0 {tablet_with_food} active Carvedilol 12.5 MG eCW1 (On License Of [facility]) carvedilol 6.25 MG Oral Tablet Carvedilol 6.25 MG Carvedilol 6.25 MG 03/17/2020 12:00:00 AM EST 1.0 {tablet_with_food} active Carvedilol 6.25 MG eCW1 (On License Of [facility]) carvedilol 12.5 MG Oral Tablet Carvedilol 12.5 MG Carvedilol 12.5 MG 03/17/2020 12:00:00 AM EST active Carvedil ol 12.5 MG eCW1 (On License Of [facility]) carvedilol 12.5 MG Oral Tablet Carvedilol 12.5 MG Carvedilol 12.5 MG 03/17/2020 12:00:00 AM EST active Carvedil ol 12.5 MG eCW1 (On License Of [facility]) carvedilol 12.5 MG Oral Tablet Carvedilol 12.5 MG Carvedilol 12.5 MG 03/17/2020 12:00:00 AM EST active Carvedil ol 12.5 MG eCW1 (On License Of [facility]) carvedilol 6.25 MG Oral Tablet Carvedilol 6.25 MG Carvedilol 6.25 MG 03/17/2020 12:00:00 AM EST 1.0 {tablet_with_food} active Carvedilol 6.25 MG eCW1 (On License Of [facility]) carvedilol 12.5 MG Oral Tablet Carvedilol 12.5 MG Carvedilol 12.5 MG 03/17/2020 12:00:00 AM EST active Carvedil ol 12.5 MG eCW1 (On License Of [facility]) carvedilol 12.5 MG Oral Tablet Carvedilol 12.5 MG Carvedilol 12.5 MG 03/17/2020 12:00:00 AM EST active Carvedil ol 12.5 MG eCW1 (On License Of [facility]) carvedilol 6.25 MG Oral Tablet Carvedilol 6.25 MG Carvedilol 6.25 MG 03/17/2020 12:00:00 AM EST 1.0 {tablet_with_food} active Carvedilol 6.25 MG eCW1 (On License Of [facility]) carvedilol 12.5 MG Oral Tablet Carvedilol 12.5 MG Carvedilol 12.5 MG 03/17/2020 12:00:00 AM EST active Carvedil ol 12.5 MG eCW1 (On License Of [facility]) carvedilol 6.25 MG Oral Tablet Carvedilol 6.25 MG Carvedilol 6.25 MG 03/17/2020 12:00:00 AM EST 1.0 {tablet_with_food} active Carvedilol 6.25 MG eCW1 (On License Of [facility]) carvedilol 6.25 MG Oral Tablet Carvedilol 6.25 MG Carvedilol 6.25 MG 03/17/2020 12:00:00 AM EST 1.0 {tablet_with_food} active Carvedilol 6.25 MG eCW1 (On License Of [facility]) carvedilol 12.5 MG Oral Tablet Carvedilol 12.5 MG Carvedilol 12.5 MG 03/17/2020 12:00:00 AM EST 1.0 {tablet_with_food} active Carvedilol 12.5 MG eCW1 (On License Of [facility]) carvedilol 12.5 MG Oral Tablet Carvedilol 12.5 MG Carvedilol 12.5 MG 03/17/2020 12:00:00 AM EST active Carvedil ol 12.5 MG eCW1 (On License Of [facility]) carvedilol 6.25 MG Oral Tablet Carvedilol 6.25 MG Carvedilol 6.25 MG 03/17/2020 12:00:00 AM EST 1.0 {tablet_with_food} active Carvedilol 6.25 MG eCW1 (On License Of [facility]) carvedilol 12.5 MG Oral Tablet Carvedilol 12.5 MG Carvedilol 12.5 MG 03/17/2020 12:00:00 AM EST active Carvedil ol 12.5 MG eCW1 (On License Of [facility]) carvedilol 12.5 MG Oral Tablet Carvedilol 12.5 MG Carvedilol 12.5 MG 03/17/2020 12:00:00 AM EST active Carvedil ol 12.5 MG eCW1 (On License Of [facility]) carvedilol 12.5 MG Oral Tablet Carvedilol 12.5 MG Carvedilol 12.5 MG 03/17/2020 12:00:00 AM EST 1.0 {tablet_with_food} active Carvedilol 12.5 MG eCW1 (On License Of [facility]) carvedilol 6.25 MG Oral Tablet Carvedilol 6.25 MG Carvedilol 6.25 MG 03/17/2020 12:00:00 AM EST 1.0 {tablet_with_food} active Carvedilol 6.25 MG eCW1 (On License Of [facility]) carvedilol 6.25 MG Oral Tablet Carvedilol 6.25 MG Carvedilol 6.25 MG 03/17/2020 12:00:00 AM EST 1.0 {tablet_with_food} active Carvedilol 6.25 MG eCW1 (On License Of [facility]) carvedilol 12.5 MG Oral Tablet Carvedilol 12.5 MG Carvedilol 12.5 MG 03/17/2020 12:00:00 AM EST active Carvedil ol 12.5 MG eCW1 (On License Of [facility]) carvedilol 12.5 MG Oral Tablet Carvedilol 12.5 MG Carvedilol 12.5 MG 03/17/2020 12:00:00 AM EST active Carvedil ol 12.5 MG eCW1 (On License Of [facility]) carvedilol 12.5 MG Oral Tablet Carvedilol 12.5 MG Carvedilol 12.5 MG 03/17/2020 12:00:00 AM EST 1.0 {tablet_with_food} active Carvedilol 12.5 MG eCW1 (On License Of [facility]) 1 mg 02/29/2020 12:00:00 AM EDT tablet [...] active Butrans 5 MCG/HR eCW1 ([facility]) 168 HR Buprenorphine 0.005 MG/HR Transdermal Patch [Bu Trans] Butrans 5 MCG/HR Butrans 5 MCG/HR 02/28/2020 12:00:00 AM EDT 1.0 {patch_to_skin} active Butrans 5 MCG/HR eCW1 ([facility]) 168 HR Buprenorphine 0.005 MG/HR Transdermal Patch [Bu Trans] Butrans 5 MCG/HR Butrans 5 MCG/HR 02/28/2020 12:00:00 AM EDT 1.0 {patch_to_skin} active Butrans 5 MCG/HR eCW1 ([facility]) 168 HR Buprenorphine 0.005 MG/HR Transdermal Patch [Bu Trans] Butrans 5 MCG/HR Butrans 5 MCG/HR 02/28/2020 12:00:00 AM EDT 1.0 {patch_to_skin} active Butrans 5 MCG/HR eCW1 ([facility]) 10 mg 02/26/2020 12:00:00 AM [...] Plan Information [place] [employer] [place] [id number] Self [id number] [place] [employer] [place] [id number] Self [id number] [facility] MEDICARE COMPLETE G [id number] Self [id number] MEDICARE COMPLETE [id number] SP [id number] MEDICARE COMPLETE [id number] SP [id number] [facility] Commercial [id number] Self [id number] MEDICARE COMPLETE [id number] SP [id number] MEDICARE COMPLETE [id number] SP [id number] MEDICARE COMPLETE [id number] SP [id number] [employer] [place] [id number] [employer] B [id number] [facility] [id number] [employer]are Part B [id number] ANSI-Medicare Part B [id number] ANSI-Medicare Part B [id number] ANSI-Medicare Part B [id number] ANSI-Medicare Part B [id number] ANSI-Medicare Part B [id number] ANSI-Medicare Part B [id number] [facility]/Medicare Solu Commercial [id number] Self [id number] ANSI-Medicare Part B [id number] ANSI-Medicare Part B [id number] ANSI-Medicare Part B [id number] ANSI-Medicare Part B [id number] ANSI-Medicare Part B [id number] ANSI-Medicare Part B [id number] ANSI-Medicare Part B [id number] ANSI-Medicare Part B [id number] ANSI-Medicare Part B [id number] ANSI-Medicare Part B [id number] ANSI-Medicare Part B [id number] ANSI-Medicare Part B [id number] [facility]/Medicare Solu Commercial [id number] Self [id number] ANSI-Medicare Part B [id number] ANSI-Medicare Part B [id number] ANSI-Medicare Part B [id number] ANSI-Medicare Part B [id number]-g85g-9326-59ne-0k4013y5rt57 c181oa77-r41d-3034-78hx-9t8754w8yb78 [facility]/Medicare Commercial [id number] Self ANSI-Medicare Part B [id number]-h5ba-6481-m1y6-me9e1c051238 o5cb74pd-l0bk-5758-b9f9-dd9y0y862420 ANSI-Medicare Part B 81l7g5r0-9tg9-443u-7i48-zjcq91d89094 32x6t6f8-8df2-102q-8c88-etat47j09862 ANSI-Medicare Part B 89n4pv88-6464-08hf-mb93-t95n2817kmd7 67s9oa83-3617-49tw-ua97-d70i4749kpl3 ANSI-Medicare Part B [id number]-w104-r78a3077l6o8 ln95u708-1261-0511-w476-k64a2030r9i7 ANSI-Medicare Part B [id number]-wec8-d571415954h4 698ib772-1654-0z2c-ngr4-w339756293u5 ANSI-Medicare Part B y2fg27oc-s107-1m61-5e8g-4z75428tsk9g x3bi20ia-t358-5v06-2v1w-2s07725myl7m ANSI-Medicare Part B 50b0k79k-0d76-9d43-fsp1-a930991dz102 94v7p34b-2y97-5o64-ckp6-k769506wy806 ANSI-Medicare Part B h902ep70-24n5-4622-19z4-cm29o442xw28 i489zf74-26q9-3578-07t5-ol82j008xd37 [facility]/Medicare Solu Commercial [id number] Self [id number] ANSI-Medicare Part B ek25p07v-2pz0-85uv-3605-7r44d498jg5s jz93h97a-4wp3-25af-7674-6i89i469qm8s [facility]/Medicare Solu Commercial [id number] Self [id number] ANSI-Medicare Part B [id number]-3350-9545-0475-s851108g3217 [id number]-9330-2386-9981-[id number] ANSI-Medicare Part B 373j97ec-697u-40p4-6rqh-i5zn0f3b3r92 278m46uk-417b-96t0-3frg-q5dj2e3k7o32 ANSI-Medicare Part B [id number]-8185-ec04-ub9236u6o727 n67ym760-5r3e-8586-hz42-sm1873l7b811 ANSI-Medicare Part B [id number]-27v6-[id number] 4737d417-74hb-80m6-[id number] ANSI-Medicare Part B [id number]-3964-788e-h15j-87a8986quhwe d351i47d-6773-231w-v46d-19x3162csvck ANSI-Medicare Part B 86dtg1lo-5k9s-9z12-04w2-5ma3602y4l65 85lut4uq-8h0l-1g36-63u3-1zr2828w4h92 ANSI-Medicare Part B 37es8004-2959-655c-skui-59218w6s0j83 49de8400-2978-772l-guxy-07759b0w7k09 ANSI-Medicare Part B [id number]-n26p-95xf9b3dg32l 65602506-8568-6625-n66s-52hc9n8vg68w ANSI-Medicare Part B 0w40s8b2-hr18-72do-c0q6-pfvw7y832d6e 5u11e6e2-wb26-84nt-z1c7-pmlv1o426l4x [facility] [id number] Self [id number] [facility] [id number] Self MEDICARE [id number] SP [id number] A Medicare P UNAVAILABLE S UNAVAILA BLE Self Pay S [id number] S [id number] [facility] O [id number] S [id number] [facility] MEDICARE-O/P [id number] 18 [id number] MEDICARE COMPLETE [id number] SP [id number] A MEDICARE COMPLETE [id number] SP [id number] MEDICARE [id number] SP [id number] MEDICARE COMPLETE-UHC O [id number] S [id number] MEDICARE COMPLETE-UH O [id number] S [id number] ANSI-Medicare Part B [id number]-[id number] 381c6x03-2o24-1v1e-[id number] ANSI-Medicare Part B [id number]-[id number] [facility]-Medicare Part B [id number]-01ks-[id number] 57ykcq8n-n8qr-00tt-j256-075shu7o0up9 Problems, Conditions, and Diagnoses Code Display Name Description Problem Type Effective Dates Data Source(s) Rt facial droop, RLE weakness Rt facial droop, RLE wea kness Diagnosis 06/22/2020 03:26:00 PM [facility] G44.221 Chronic tension-type headache Chronic tension-type hea dache Problem 12/18/2020 12:00:00 AM EDT [facility] ([facility], ) G43.009 Migraine without aura, not refractory Mi graine without aura, not refractory Problem 12/18/2020 12:00:00 AM EDT [facility] ([facility], ) G89.29 [id number] Other chronic pain Problem 11/11/2020 12:00: 00 AM EDT eCW1 (On License Of [facility]) F41.9 [id number] Anxiety Problem 08/19/2020 12:00:00 AM ED T eCW1 (On License Of [facility]) N94.89 [id number] Burning sensation of vulva Problem 12:00:00 AM EDT eCW1 (On License Of [facility]) R20.0 Skin sensation disturbance Skin sensation disturbance Problem 07/18/2020 12:00:00 AM EST [facility] ([facility], ) R53.1 Malaise and fatigue Malaise and fatigue Problem 0 07/18/2020 12:00:00 AM EST [facility] ([facility], ) Z86.73 History of cerebrovascular accident with out residual deficits History of cerebrovascular accident without residual deficits Problem 09/2020 12:00:00 AM EST [facility] ([facility], ) 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 Problem 07/18/2020 12:00:00 AM EST [facility] ([facility], ) M54.2 Neck pain Neck pain Problem 07/18/2020 12:00:00 AM ES T MEDENT ([facility], ) 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 Problem 07/18/2020 12:00:00 AM EST MEDENT ([facility], ) M54.5 Low back pain Low back pain Problem 07/18/2020 12:00:00 AM EST MEDENT ([facility], ) M43.06 Spondylolysis Spondylolysis Problem 07/18/2020 12:00:00 AM EST MEDENT ([facility], ) Z12.2 [id number] Encounter for screening for lung cancer P john 06/30/2020 12:00:00 AM EST eCW1 ([facility]) G89.4 [id number] Chronic pain syndrome Problem 05/19/2020 12: 00:00 AM EST eCW1 ([facility]) N28.1 [id number] Renal cyst Problem 03/17/2020 12:00:00 AM ES T eCW1 ([facility]) Surgeries/Procedures Procedure Description Date Indications Data Source(s) OFFICE OUTPATIENT VISIT 15 MINUTES 03/13/2021 12:00:00 AM EDT MEDENT ([facility] ) PHYSICIAN TELEPHONE EVALUATION 11-20 MIN 03/05/2021 12 :00:00 AM EDT MEDENT ([facility], ) Magnetic Resonance Angiogtaphy Head W/O Contrast Material(S) 12/23/2020 12:00:00 AM EDT MEDENT ([facility] ) Magnetic Resonance Angiogtaphy Head W/O Contrast Material(S) 12/23/2020 12:00:00 AM EDT MEDENT ([facility] ) MRI BRAIN BRAIN STEM W/O CONTRAST MATERIAL 12/23/2020 12:00:00 AM EDT MEDENT ([facility] ) MRI BRAIN BRAIN STEM W/O CONTRAST MATERIAL 12/23/2020 12:00:00 AM EDT MEDENT ([facility] ) PHYSICIAN TELEPHONE EVALUATION 11-20 MIN 12/18/2020 12 :00:00 AM EDT MEDENT ([facility]) X-Ray Spine Lumbosacral Complete Inc Bending Views Min Of 6 11/18/2020 12:00:00 AM EDT MEDENT ([facility]) OFFICE OUTPATIENT VISIT 25 MINUTES 11/18/2020 12:00:00 AM EDT MEDENT ([facility]) ARTHROCENTESIS ASPIR&/INJECTION MAJOR JT/BURSA 021 12:00:00 AM EDT MEDENT ([facility]) OFFICE OUTPATIENT VISIT 25 MINUTES 10/23/2020 12:00:00 AM EDT MEDENT ([facility]) OFFICE OUTPATIENT VISIT 15 MINUTES 10/22/2020 12:00:00 AM EDT MEDENT ([facility] ) OFFICE OUTPATIENT NEW 60 MINUTES 07/18/2020 12:00:00 A M EST MEDENT ([facility], ) PRESSURIZED/NONPRESSURIZED INHALATION TREATMENT 2019 12:00:00 AM EST MEDENT ([facility], [facility]) Results ID Date Data Source [id number] 04/18/2021 01:19:00 PM EST [facility] Name Value Range Interpretation Code Description Data Yue rce(s) Supporting Document(s) SARS coronavirus 2 RNA [Presence] in Res piratory specimen by BARBARA with probe detection NEGATIVE - SARS-CoV-2 (COVID19) [facility] This lab was ordered by [facility] a nd reported by [facility]. ID Date Data Source [facility] MRI ABDOMEN WITHOUT CONTRAST 08/21/2020 12:00:00 AM EDT eCW1 ([facility]) Name Value Range Interpretation Code Description Data Yue rce(s) Supporting Document(s) [facility] MRI ABDOMEN WITHOUT CONTRA ST eCW1 ([facility]) ID Date Data Source CBC with Differential 08/19/2020 12:00:00 AM EDT eCW1 ([facility]) Name Value Range Interpretation Code Description Data Yue rce(s) Supporting Document(s) 8.4 4.0-10.0 WHITE BLOOD COUNT eCW1 ([facility]) 51.7 36.0-47.0 HEMATOCRIT eCW1 ([facility]) 16.7 12.0-15.5 HEMOGLOBIN eCW1 ([facility]) 5.29 4.00-5.40 RED BLOOD COUNT eCW1 ([facility]) 31.6 27.0-33.0 MEAN CORPUSCULAR HEMOGLOB IN eCW1 ([facility]) 32.3 32.0-36.5 MEAN CORPUSCULAR HGB CONC eCW1 ([facility]) 97.7 80.0-96.0 MEAN CORPUSCULAR VOLUME e CW1 ([facility]) 270 150-450 PLATELET COUNT, AUTOMATED eCW1 ([facility]) 43.8 36.0-66.0 NEUTROPHILS % eCW1 ([facility]) 13.8 11.5-14.5 RED CELL DISTRIBUTION WID TH eCW1 ([facility]) 39.9 24.0-44.0 LYMPH % eCW1 ([facility]) 4.2 0.0-3.0 EOS % eCW1 ([facility]) 11.3 2.0-8.0 MONO % eCW1 ([facility]) 3.7 1.5-8.5 NEUTROPHILS # eCW1 ([facility]) 3.4 1.5-5.0 LYMPH # eCW1 ([facility]) 0.6 0.0-1.0 BASO % eCW1 ([facility]) 0.1 0.0-0.2 BASO # eCW1 ([facility]) 0.4 0.0-0.5 EOS # eCW1 ([facility]) 1.0 0.0-0.8 MONO # eCW1 ([facility]) ID Date Data Source [id number] TUMOR MARKER,CARBOHYDRA 08/19/2020 12:00:00 AM EDT eC W1 ([facility]) Name Value Range Interpretation Code Description Data Yue rce(s) Supporting Document(s) 16.4 <35.0 [id number] TUMOR MARKER,CARBO HYDRA eCW1 ([facility]) ID Date Data Source URINE CULTURE 08/08/2020 12:00:00 AM EDT eCW1 ([facility]) Name Value Range Interpretation Code Description Data Yue rce(s) Supporting Document(s) Laboratory studies (set) URINE CULTU RE eCW1 ([facility]) ID Date Data Source [id number] 07/14/2020 11:21:00 AM EST MEDENT ([facility]) Name Value Range Interpretation Code Description Data Yue rce(s) Supporting Document(s) Bacteria identified in Urine by Culture Laboratory test result MEDENT ([facility]) ID Date Data Source [id number] 07/14/2020 12:00:00 AM EST [facility] Name Value Range Interpretation Code Description Data Yue rce(s) Supporting Document(s) SARS-CoV2 Rapid Antigen Negative [facility] This lab was reported by [facility]. ID Date Data Source [id number] 06/22/2020 01:49:00 PM EST [facility] Name Value Range Interpretation Code Description Data Yue rce(s) Supporting Document(s) SARS coronavirus 2 RNA [Presence] in Res piratory specimen by BARBARA with probe detection NEGATIVE [facility] This lab was ordered by [facility] a nd reported by [facility]. ID Date Data Source [id number] 06/04/2020 09:27:00 AM EST MEDENT ([facility]) Name Value Range Interpretation Code Description Data Yue rce(s) Supporting Document(s) WBC, Urine Auto 1 /HPF 0-3 MEDENT ([facility], [facility]) RBC, Urine Auto 1 /HPF 0-3 MEDENT ([facility]) Bacteria, Urine Auto Laboratory test result MEDENT ([facility]) Squamous Epithelial Cell Ur AU 0 /HPF 0-6 MEDENT ([facility]) Mucus, Urine Laboratory test result MEDE NT ([facility]) Hyaline Cast, Urine Auto 0 /LPF 0-1 MEDEN T ([facility]) ID Date Data Source [id number] 06/04/2020 09:27:00 AM EST MEDENT ([facility]) Name Value Range Interpretation Code Description Data Yue rce(s) Supporting Document(s) Bacteria identified in Urine by Culture Laboratory test result MEDENT ([facility]) FULL REPORT IN LAB NOTES (eCW and Medent ). NO GROWTH CLINICAL SIGNIFICANCE 2 OR MORE ORGANISMS ID Date Data Source [id number] 06/04/2020 12:00:00 AM EST [facility] Name Value Range Interpretation Code Description Data Yue rce(s) Supporting Document(s) SARS coronavirus 2 Ag Negative [facility] This lab was ordered by [facility] and reported by [facility]. ID Date Data Source UA URINALYSIS 05/19/2020 12:00:00 AM EST eCW1 ([facility]) Name Value Range Interpretation Code Description Data Yue rce(s) Supporting Document(s) Laboratory studies (set) UA URINALYS IS eCW1 ([facility]) ID Date Data Source [id number] 05/12/2020 08:16:00 PM EST [facility] Name Value Range Interpretation Code Description Data Yue rce(s) Supporting Document(s) SARS coronavirus 2 RNA [facility] This lab was ordered by [facility] and reported by [facility]. ID Date Data Source [id number] 05/01/2020 02:32:00 PM EST [facility] Name Value Range Interpretation Code Description Data Yue rce(s) Supporting Document(s) SARS coronavirus 2 RNA [Presence] in Res piratory specimen by BARBARA with probe detection [facility] This lab was ordered by [facility] a nd reported by [facility]. ID Date Data Source [id number] 04/17/2020 11:36:00 AM EST MEDENT ([facility]) Name Value Range Interpretation Code Description Data Yue rce(s) Supporting Document(s) Blood Urea Nitrogen 11 mg/dL 7-18 MEDENT ([facility]) Creatinine For GFR 0.85 mg/dL 0.55-1.30 MEDENT ([facility]) Glucose, Fasting 85 mg/dL 70-100 MEDENT ([facility]) Glomerular Filtration Rate [facility]) <content>Units are mL/min/1.73 m2</content>
<content></content>
<content>Chronic Kidney Disease Staging per NKF:</content>
<content></content>
<content>Stage I & II GFR >=60 Normal to Mildly Decreased</content>
<content>Stage III GFR 30- 59 Moderately Decreased</content>
<content>Stage IV GFR 15-29 Severely Decreased</content>
<content>Stage V GFR <15 Very Little GFR Left</content>
<content>ESRD GFR <15 on CREAM DIPPER</content>
<content></content> Sodium Level 141 meq/L 136-145 MEDENT ([facility], [facility]) Chloride Level 108 meq/L 98-107 MEDENT ([facility], [facility]) Potassium Serum 3.9 meq/L 3.5-5.1 MEDENT ([facility], [facility]) Carbon Dioxide Level 27 meq/L 21-32 MEDENT ([facility], [facility]) Calcium Level 9.7 mg/dL 8.5-10.1 MEDENT ([facility], [facility]) Ast/Sgot 9 U/L 7-37 MEDENT ([facility], [facility]) Anion Gap 6 meq/L 8-16 MEDENT ([facility], [facility]) Alt/SGPT 17 U/L 12-78 MEDENT ([facility], [facility]) Alkaline Phosphatase 88 U/L 45-117 MEDENT ([facility], [facility]) Bilirubin,Total 0.4 mg/dL 0.2-1.0 MEDENT ([facility], [facility]) Albumin 3.7 GM/DL 3.2-5.2 MEDENT ([facility], [facility]) Total Protein 6.7 GM/DL 6.4-8.2 MEDENT ([facility], [facility]) Albumin/Globulin Ratio 1.2 1.2-2.2 MEDENT ([facility], [facility]) ID Date Data Source [id number] 04/17/2020 11:36:00 AM EST MEDENT ([facility]) Name Value Range Interpretation Code Description Data Yue rce(s) Supporting Document(s) White Blood Count 7.6 10 4.0-10.0 MEDENT [facility] Hemoglobin 14.9 g/dL 12.0-15.5 MEDENT ([facility] Red Blood Count 4.77 10 4.00-5.40 MEDENT ([facility]) Hematocrit 46.3 % 36.0-47.0 MEDENT ([facility]) Mean Corpuscular Hemoglobin 31.2 pg 27.0-33.0 MEDENT ([facility]) Mean Corpuscular Volume 97.1 fl 80.0-96.0 M EDENT ([facility]) Mean Corpuscular HGB Conc 32.2 g/dL 32.0-36.5 MEDENT ([facility]) Platelet Count, Automated 255 10 150-450 MEDENT ([facility] Red Cell Distribution Width 14.8 % 11.5-14.5 MEDENT ([facility]) Lymph % 40.2 % 24.0-44.0 MEDENT ([facility] Wayne % 11.6 % 0.0-5.0 MEDENT ([facility]) Neutrophils % 42.6 % 36.0-66.0 MEDENT ([facility]) Baso % 0.7 % 0.0-1.0 MEDENT ([facility]) Eos % 4.6 % 0.0-3.0 MEDENT ([facility]) Neutrophils # 3.3 10 1.5-8.5 MEDENT ([facility]) Nucleated Red Blood Cell % 0.0 % 0-0 MED ENT ([facility]) Immature Granulocyte % 0.3 % 0-3.0 MEDENT ([facility]) Eos # 0.4 10 0.0-0.5 MEDENT ([facility]) Lymph # 3.1 10 1.5-5.0 MEDENT ([facility]) Wayne # 0.9 10 0.0-0.8 MEDENT ([facility]) Baso # 0.1 10 0.0-0.2 MEDENT ([facility], [facility]) ID Date Data Source DRUG EVAL COMPREHENSIVE 03/22/2020 04:46:20 AM EST eCW1 ([facility] Name Value Range Interpretation Code Description Data Yue rce(s) Supporting Document(s) DRUG EVAL COMPREHENSIVE eCW1 ( [facility]) ID Date Data Source ERYTHROCYTE SEDIMENTATION RATE 03/18/2020 05:27:57 AM EST eC W1 ([facility]) Name Value Range Interpretation Code Description Data Yue rce(s) Supporting Document(s) 1 ERYTHROCYTE SEDIMENTATION RATE eCW1 ([facility]) ID Date Data Source NT-PRO BNP 03/18/2020 04:57:51 AM EST eCW1 ([facility]) Name Value Range Interpretation Code Description Data Yue rce(s) Supporting Document(s) 112 NT-PRO BNP eCW1 ([facility]) ID Date Data Source C REACTIVE PROTEIN QUANTITATIV (At [facility]) 03/18/2020 04:57 :44 AM EST eCW1 ([facility]) Name Value Range Interpretation Code Description Data Yue rce(s) Supporting Document(s) < 0.30 C REACTIVE PROTEIN QUANTI TATIV eCW1 ([facility]) ID Date Data Source [id number] 03/03/2020 02:03:00 PM EDT MEDENT ([facility]) Name Value Range Interpretation Code Description Data Yue rce(s) Supporting Document(s) Laboratory test finding (navigational concept) Laboratory test result MEDENT ([facility]) Procedure Social History Code Duration Value Status Description Data Source(s ) Smoking 03/13/2021 12:00:00 AM EDT Patient is a former smoker completed Patient is a former smoker MEDENT ([facility], ) Smoking 03/01/2021 12:00:00 AM EDT Former Smoker completed Former Smoker eCW1 ([facility]) Smoking 03/01/2021 12:00:00 AM EDT Former Smoker completed Former Smoker eCW1 ([facility]) Smoking 03/01/2021 12:00:00 AM EDT Former Smoker completed Former Smoker eCW1 ([facility]) Smoking 03/01/2021 12:00:00 AM EDT Former Smoker completed Former Smoker eCW1 ([facility]) Smoking 03/01/2021 12:00:00 AM EDT Former Smoker completed Former Smoker eCW1 ([facility]) Smoking 03/01/2021 12:00:00 AM EDT Former Smoker completed Former Smoker eCW1 ([facility]) Smoking 03/01/2021 12:00:00 AM EDT Former Smoker completed Former Smoker eCW1 ([facility]) Smoking 03/01/2021 12:00:00 AM EDT Former Smoker completed Former Smoker eCW1 ([facility]) Smoking 03/01/2021 12:00:00 AM EDT Former Smoker completed Former Smoker eCW1 ([facility]) Smoking 03/01/2021 12:00:00 AM EDT Former Smoker completed Former Smoker eCW1 ([facility]) Smoking 03/01/2021 12:00:00 AM EDT Former Smoker completed Former Smoker eCW1 ([facility]) Smoking 03/01/2021 12:00:00 AM EDT Former Smoker completed Former Smoker eCW1 ([facility]) Smoking 03/01/2021 12:00:00 AM EDT Former Smoker completed Former Smoker eCW1 ([facility]) Smoking 02/19/2021 12:00:00 AM EDT Former Smoker completed Former Smoker eCW1 ([facility]) Smoking 02/19/2021 12:00:00 AM EDT Former Smoker completed Former Smoker eCW1 ([facility]) Smoking 02/19/2021 12:00:00 AM EDT Former Smoker completed Former Smoker eCW1 ([facility]) Smoking 02/19/2021 12:00:00 AM EDT Former Smoker completed Former Smoker eCW1 ([facility]) Smoking 02/06/2021 12:00:00 AM EDT Former Smoker completed Former Smoker eCW1 ([facility]) Smoking 02/06/2021 12:00:00 AM EDT Former Smoker completed Former Smoker eCW1 ([facility]) Smoking 11/11/2020 12:00:00 AM EDT Former Smoker completed Former Smoker eCW1 ([facility]) Smoking 11/11/2020 12:00:00 AM EDT Former Smoker completed Former Smoker eCW1 ([facility]) Smoking 11/11/2020 12:00:00 AM EDT Former Smoker completed Former Smoker eCW1 ([facility]) Smoking 11/11/2020 12:00:00 AM EDT Former Smoker completed Former Smoker eCW1 ([facility]) Smoking 11/11/2020 12:00:00 AM EDT Former Smoker completed Former Smoker eCW1 ([facility]) Smoking 11/11/2020 12:00:00 AM EDT Former Smoker completed Former Smoker eCW1 ([facility]) Smoking 11/11/2020 12:00:00 AM EDT Former Smoker completed Former Smoker eCW1 ([facility]) Smoking 11/11/2020 12:00:00 AM EDT Former Smoker completed Former Smoker eCW1 ([facility]) Smoking 11/11/2020 12:00:00 AM EDT Former Smoker completed Former Smoker eCW1 ([facility]) Smoking 11/11/2020 12:00:00 AM EDT Former Smoker completed Former Smoker eCW1 ([facility]) Smoking 10/28/2020 12:00:00 AM EDT Former Smoker completed Former Smoker eCW1 ([facility]) Smoking 10/28/2020 12:00:00 AM EDT Former Smoker completed Former Smoker eCW1 ([facility]) Smoking 10/28/2020 12:00:00 AM EDT Former Smoker completed Former Smoker eCW1 ([facility]) Smoking 10/28/2020 12:00:00 AM EDT Former Smoker completed Former Smoker eCW1 ([facility]) Smoking 10/28/2020 12:00:00 AM EDT Former Smoker completed Former Smoker eCW1 ([facility]) Smoking 08/19/2020 12:00:00 AM EDT Former Smoker completed Former Smoker eCW1 ([facility]) Smoking 08/19/2020 12:00:00 AM EDT Former Smoker completed Former Smoker eCW1 ([facility]) Smoking 08/19/2020 12:00:00 AM EDT Former Smoker completed Former Smoker eCW1 ([facility]) Smoking 08/19/2020 12:00:00 AM EDT Former Smoker completed Former Smoker eCW1 ([facility]) Smoking 08/19/2020 12:00:00 AM EDT Former Smoker completed Former Smoker eCW1 ([facility]) Smoking 08/19/2020 12:00:00 AM EDT Former Smoker completed Former Smoker eCW1 ([facility]) Smoking 08/19/2020 12:00:00 AM EDT Former Smoker completed Former Smoker eCW1 ([facility]) Smoking 08/19/2020 12:00:00 AM EDT Former Smoker completed Former Smoker eCW1 ([facility]) Smoking 08/14/2020 12:00:00 AM EDT Former Smoker completed Former Smoker eCW1 ([facility]) Smoking 08/08/2020 12:00:00 AM EDT Former Smoker completed Former Smoker eCW1 ([facility]) Smoking 08/08/2020 12:00:00 AM EDT Former Smoker completed Former Smoker eCW1 ([facility]) Smoking 08/08/2020 12:00:00 AM EDT Former Smoker completed Former Smoker eCW1 ([facility]) Smoking 08/08/2020 12:00:00 AM EDT Former Smoker completed Former Smoker eCW1 ([facility]) Smoking 06/30/2020 12:00:00 AM EST Former Smoker completed Former Smoker eCW1 ([facility]) Smoking 06/30/2020 12:00:00 AM EST Former Smoker completed Former Smoker eCW1 ([facility]) Smoking 06/30/2020 12:00:00 AM EST Former Smoker completed Former Smoker eCW1 ([facility]) Smoking 06/30/2020 12:00:00 AM EST Former Smoker completed Former Smoker eCW1 ([facility]) Smoking 06/30/2020 12:00:00 AM EST Former Smoker completed Former Smoker eCW1 ([facility]) Smoking 06/30/2020 12:00:00 AM EST Former Smoker completed Former Smoker eCW1 ([facility]) Smoking 06/30/2020 12:00:00 AM EST Former Smoker completed Former Smoker eCW1 ([facility]) Smoking 06/30/2020 12:00:00 AM EST Former Smoker completed Former Smoker eCW1 ([facility]) Smoking 06/30/2020 12:00:00 AM EST Former Smoker completed Former Smoker eCW1 ([facility]) Smoking 05/19/2020 12:00:00 AM EST Former Smoker completed Former Smoker eCW1 ([facility]) Smoking 05/19/2020 12:00:00 AM EST Former Smoker completed Former Smoker eCW1 ([facility]) Smoking 05/19/2020 12:00:00 AM EST Former Smoker completed Former Smoker eCW1 ([facility]) Smoking 05/19/2020 12:00:00 AM EST Former Smoker completed Former Smoker eCW1 ([facility]) Smoking 05/19/2020 12:00:00 AM EST Former Smoker completed Former Smoker eCW1 ([facility]) Smoking 05/19/2020 12:00:00 AM EST Former Smoker completed Former Smoker eCW1 ([facility]) Smoking 05/19/2020 12:00:00 AM EST Former Smoker completed Former Smoker eCW1 ([facility]) Smoking 05/19/2020 12:00:00 AM EST Former Smoker completed Former Smoker eCW1 ([facility]) Smoking 05/19/2020 12:00:00 AM EST Former Smoker completed Former Smoker eCW1 ([facility]) Smoking 05/19/2020 12:00:00 AM EST Former Smoker completed Former Smoker eCW1 ([facility]) Smoking 05/19/2020 12:00:00 AM EST Former Smoker completed Former Smoker eCW1 ([facility]) Smoking 05/19/2020 12:00:00 AM EST Former Smoker completed Former Smoker eCW1 ([facility]) Smoking 05/19/2020 12:00:00 AM EST Former Smoker completed Former Smoker eCW1 ([facility]) Smoking 04/21/2020 12:00:00 AM EST Former Smoker completed Former Smoker eCW1 ([facility]) Smoking 04/21/2020 12:00:00 AM EST Former Smoker completed Former Smoker eCW1 ([facility]) Smoking 04/21/2020 12:00:00 AM EST Former Smoker completed Former Smoker eCW1 ([facility]) Smoking 04/21/2020 12:00:00 AM EST Former Smoker completed Former Smoker eCW1 ([facility]) Smoking 04/21/2020 12:00:00 AM EST Former Smoker completed Former Smoker eCW1 ([facility]) Smoking 04/21/2020 12:00:00 AM EST Former Smoker completed Former Smoker eCW1 ([facility]) Smoking 03/17/2020 12:00:00 AM EST Former Smoker completed Former Smoker eCW1 ([facility]) Smoking 03/17/2020 12:00:00 AM EST Former Smoker completed Former Smoker eCW1 ([facility]) Smoking 03/17/2020 12:00:00 AM EST Former Smoker completed Former Smoker eCW1 ([facility]) Smoking 03/17/2020 12:00:00 AM EST Former Smoker completed Former Smoker eCW1 ([facility]) Smoking 03/17/2020 12:00:00 AM EST Former Smoker completed Former Smoker eCW1 ([facility]) Smoking 03/17/2020 12:00:00 AM EST Former Smoker completed Former Smoker eCW1 ([facility]) Smoking 03/17/2020 12:00:00 AM EST Former Smoker completed Former Smoker eCW1 ([facility]) Smoking 03/17/2020 12:00:00 AM EST Former Smoker completed Former Smoker eCW1 ([facility]) Smoking 03/17/2020 12:00:00 AM EST Former Smoker completed Former Smoker eCW1 (On [facility]) Vital Signs ID Date Data Source UNK Name Value Range Interpretation Code Description Data Source(s) [place] body weight 140 [lb_av] 140 [lb_av] MEDEN T ([facility]) Systolic blood pressure 100 mm[Hg] 100 mm[Hg] M EDENT ([facility]) Diastolic blood pressure 62 mm[Hg] 62 mm[Hg] MEDENT ([facility]) Heart rate 80 /min 80 /min [facility] ([facility]) Oxygen saturation in Arterial blood by Pulse oximetry 95 % 95 % [facility] ([facility]) Respiratory rate 18 /min 18 /min [facility] ( [facility]) Body height 68 [in_i] 68 [in_i] MEDENT ([facility]) 5'8" Body weight 223.00 [lb_av] 223.00 [lb_av] MEDEN T ([facility]) Body mass index (BMI) [Ratio] 33.9 kg/m2 33.9 k g/m2 [facility] ([facility]) Body weight 101.153 kg 101.153 kg [facility] ([facility]) Body surface area Derived from formula 2.14 m2 2.14 m2 [facility] ([facility]) Heart rate 77 /min 77 /min eCW1 ([facility]) Body mass index (BMI) [Ratio] 34.06 kg/m2 34.06 kg/m2 eCW1 (On License [facility]) Body weight 222.4 [lb_av] 222.4 [lb_av] eCW1 ([facility]) Respiratory rate 18 /min 18 /min eCW1 ([facility]) Body weight 100.88 kg 100.88 kg eCW1 ([facility]) Body height 67.75 [in_i] 67.75 [in_i] eCW1 ([facility] hospital) Body temperature 99.0 [degF] 99.0 [degF] eCW1 ( On [facility]) Systolic blood pressure 128 mm[Hg] 128 mm[Hg] e CW1 (On [facility]) Diastolic blood pressure 72 mm[Hg] 72 mm[Hg] eCW1 (On [facility]) Diastolic blood pressure 76 mm[Hg] 76 mm[Hg] eCW1 (On [facility]) Body weight 219 [lb_av] 219 [lb_av] eCW1 ([facility]) Body height 67.75 [in_i] 67.75 [in_i] eCW1 ([facility] hospital) Body mass index (BMI) [Ratio] 33.54 kg/m2 33.54 kg/m2 eCW1 (On [facility]) Heart rate 83 /min 83 /min eCW1 ([facility]) Respiratory rate 18 /min 18 /min eCW1 ([facility]) Body temperature 97.7 [degF] 97.7 [degF] eCW1 ( On [facility]) Systolic blood pressure 116 mm[Hg] 116 mm[Hg] e CW1 (On [facility]) Body weight 218 [lb_av] 218 [lb_av] eCW1 ([facility]) Body height 67.75 [in_i] 67.75 [in_i] eCW1 ([facility] access hospital) Body mass index (BMI) [Ratio] 33.39 kg/m2 33.39 kg/m2 eCW1 (On [facility]) Heart rate 73 /min 73 /min eCW1 ([facility]) Respiratory rate 20 /min 20 /min eCW1 ([facility]) Body temperature 98.4 [degF] 98.4 [degF] eCW1 ( On [facility]) Systolic blood pressure 124 mm[Hg] 124 mm[Hg] e CW1 (On [facility]) Diastolic blood pressure 80 mm[Hg] 80 mm[Hg] eCW1 (On [facility]) Body weight 218.4 [lb_av] 218.4 [lb_av] eCW1 ([facility]) Body height 67.75 [in_i] 67.75 [in_i] eCW1 (Critical access hospital) Body mass index (BMI) [Ratio] 33.45 kg/m2 33.45 kg/m2 W1 (On License [facility]) Heart rate 82 /min 82 /min eCW1 ([facility]) Respiratory rate 18 /min 18 /min eCW1 ([facility]) Body temperature 97.6 [degF] 97.6 [degF] eCW1 ( On [facility]) Systolic blood pressure 118 mm[Hg] 118 mm[Hg] e CW1 (On [facility]) Diastolic blood pressure 80 mm[Hg] 80 mm[Hg] eCW1 (On [facility]) Oxygen saturation in Arterial blood by Pulse oximetry 95 % 95 % [facility] ([facility], ) Body weight 221.25 [lb_av] 221.25 [lb_av] MEDEN T ([facility], ) Body weight 100.359 kg 100.359 kg MEDENT ([facility]) Systolic blood pressure 118 mm[Hg] 118 mm[Hg] M EDENT ([facility], ) Diastolic blood pressure 62 mm[Hg] 62 mm[Hg] MEDENT ([facility], ) Heart rate 61 /min 61 /min MEDENT ([facility], ) Oxygen saturation in Arterial blood by Pulse oximetry 95 % 95 % [facility] ([facility], ) Body weight 221.25 [lb_av] 221.25 [lb_av] MEDEN T ([facility], ) Body weight 100.359 kg 100.359 kg MEDENT ([facility], ) Body weight 213 [lb_av] 213 [lb_av] eCW1 ([facility]) Body height 67.75 [in_i] 67.75 [in_i] eCW1 (Critical access hospital) Body mass index (BMI) [Ratio] 32.62 kg/m2 32.62 kg/m2 eCW1 (On [facility]) Heart rate 83 /min 83 /min eCW1 ([facility]) Respiratory rate 18 /min 18 /min eCW1 ([facility]) Body temperature 97.3 [degF] 97.3 [degF] eCW1 ( On [facility]) Systolic blood pressure 124 mm[Hg] 124 mm[Hg] e CW1 (On [facility]) Diastolic blood pressure 78 mm[Hg] 78 mm[Hg] eCW1 (On [facility]) Body weight 212 [lb_av] 212 [lb_av] eCW1 ([facility]) Body height 67.75 [in_i] 67.75 [in_i] eCW1 (Critical access hospital) Body mass index (BMI) [Ratio] 32.47 kg/m2 32.47 kg/m2 eCW1 (On [facility]) Heart rate 82 /min 82 /min eCW1 ([facility]) Respiratory rate 18 /min 18 /min eCW1 ([facility]) Body temperature 987.1 [degF] 987.1 [degF] eCW1 (On [facility]) Systolic blood pressure 120 mm[Hg] 120 mm[Hg] e CW1 (On [facility]) Diastolic blood pressure 70 mm[Hg] 70 mm[Hg] eCW1 (On [facility]) Body weight 204 [lb_av] 204 [lb_av] eCW1 ([facility]) Body weight 92.53 kg 92.53 kg eCW1 (Critical access hospital) Body height 67.75 [in_i] 67.75 [in_i] eCW1 (Critical access hospital) Body mass index (BMI) [Ratio] 31.24 kg/m2 31.24 kg/m2 eCW1 (On [facility]) Systolic blood pressure 100 mm[Hg] 100 mm[Hg] e CW1 (On [facility]) Diastolic blood pressure 60 mm[Hg] 60 mm[Hg] eCW1 (On [facility]) Diastolic blood pressure 80 mm[Hg] 80 mm[Hg] MEDENT ([facility]) Heart rate 78 /min 78 /min MEDENT ([facility]) Respiratory rate 16 /min 16 /min [facility] ( [facility], [facility]) Oxygen saturation in Arterial blood by Pulse oximetry 99 % 99 % [facility] ([facility], [facility]) Body temperature 98.7 [degF] 98.7 [degF] MEDENT ([facility], [facility]) Body weight 220.00 [lb_av] 220.00 [lb_av] MEDEN T ([facility]) Body height 68 [in_i] 68 [in_i] [facility] ([facility]) 5'8" Body mass index (BMI) [Ratio] 33.4 kg/m2 33.4 k g/m2 [facility] ([facility]) Systolic blood pressure 124 mm[Hg] 124 mm[Hg] [facility]) Systolic blood pressure 104 mm[Hg] 104 mm[Hg] M [facility] ([facility], ) Diastolic blood pressure 74 mm[Hg] 74 mm[Hg] [facility] ([facility]) Heart rate 89 /min 89 /min [facility] ([facility]) Oxygen saturation in Arterial blood by Pulse oximetry 95 % 95 % [facility] ([facility]) Body height 68 [in_i] 68 [in_i] [facility] ([facility]) 5'8" Body weight 212.00 [lb_av] 212.00 [lb_av] [facility] ([facility]) Body mass index (BMI) [Ratio] 32.2 kg/m2 32.2 k g/m2 [facility] ([facility]) [place] body weight 140 [lb_av] 140 [lb_av] MEDEN T ([facility]) Body weight 96.163 kg 96.163 kg [facility] ([facility]) Body surface area Derived from formula 2.09 m2 2.09 m2 [facility] ([facility], ) Body weight 211.2 [lb_av] 211.2 [lb_av] eCW1 ([facility]) Body height 67.75 [in_i] 67.75 [in_i] eCW1 (Critical access hospital) Body mass index (BMI) [Ratio] 32.35 kg/m2 32.35 kg/m2 eCW1 (On [facility]) Heart rate 79 /min 79 /min eCW1 ([facility]) Respiratory rate 20 /min 20 /min eCW1 ([facility]) Body temperature 98.8 [degF] 98.8 [degF] eCW1 ( On [facility]) Systolic blood pressure 120 mm[Hg] 120 mm[Hg] e CW1 (On [facility]) Diastolic blood pressure 82 mm[Hg] 82 mm[Hg] eCW1 (On [facility]) Body weight 211.2 [lb_av] 211.2 [lb_av] eCW1 ([facility]) Body height 67.75 [in_i] 67.75 [in_i] eCW1 (Critical access hospital) Body mass index (BMI) [Ratio] 32.35 kg/m2 32.35 kg/m2 eCW1 (On [facility]) Heart rate 79 /min 79 /min eCW1 ([facility]) Respiratory rate 20 /min 20 /min eCW1 ([facility]) Body temperature 98.8 [degF] 98.8 [degF] eCW1 ( On [facility]) Systolic blood pressure 120 mm[Hg] 120 mm[Hg] e CW1 (On [facility]) Diastolic blood pressure 82 mm[Hg] 82 mm[Hg] eCW1 (On [facility]) Respiratory rate 20 /min 20 /min MEDENT ( [facility], [facility]) Body temperature 98.0 [degF] 98.0 [degF] MEDENT ([facility], [facility]) Body weight 220.00 [lb_av] 220.00 [lb_av] MEDEN T ([facility], [facility]) Body height 68 [in_i] 68 [in_i] MEDENT ([facility], [facility]) 5'8" Systolic blood pressure 132 mm[Hg] 132 mm[Hg] M EDENT ([facility], [facility]) Diastolic blood pressure 80 mm[Hg] 80 mm[Hg] MEDENT ([facility], [facility]) Body mass index (BMI) [Ratio] 33.4 kg/m2 33.4 k g/m2 MEDENT ([facility], [facility]) Heart rate 66 /min 66 /min MEDENT ([facility], [facility]) Oxygen saturation in Arterial blood by Pulse oximetry 97 % 97 % MEDENT ([facility], [facility]) Systolic blood pressure 135 mm[Hg] 135 mm[Hg] M EDENT ([facility], [facility]) Diastolic blood pressure 76 mm[Hg] 76 mm[Hg] MEDENT ([facility], [facility]) Heart rate 96 /min 96 /min MEDENT ([facility], [facility]) Respiratory rate 16 /min 16 /min MEDENT ( [facility], [facility]) Oxygen saturation in Arterial blood by Pulse oximetry 98 % 98 % MEDENT ([facility], [facility]) Body temperature 98.3 [degF] 98.3 [degF] MEDENT ([facility], [facility]) Body weight 220.00 [lb_av] 220.00 [lb_av] MEDEN T ([facility], [facility]) Body height 68 [in_i] 68 [in_i] MEDENT ([facility], [facility]) 5'8" Body mass index (BMI) [Ratio] 33.4 kg/m2 33.4 k g/m2 MEDENT ([facility], [facility]) Body weight 209 [lb_av] 209 [lb_av] eCW1 ([facility]) Body height 67.75 [in_i] 67.75 [in_i] eCW1 (Critical access hospital) Body mass index (BMI) [Ratio] 32.01 kg/m2 32.01 kg/m2 W1 (On [facility] Of [facility]) Heart rate 96 /min 96 /min eCW1 ([facility]) Respiratory rate 18 /min 18 /min eCW1 ([facility]) Body temperature 99.1 [degF] 99.1 [degF] eCW1 ( On [facility]) Systolic blood pressure 130 mm[Hg] 130 mm[Hg] e CW1 (On [facility]) Diastolic blood pressure 98 mm[Hg] 98 mm[Hg] eCW1 (On [facility]) Body height 67.75 [in_i] 67.75 [in_i] eCW1 (Critical access hospital) Body weight 209.0 [lb_av] 209.0 [lb_av] eCW1 ([facility]) Body mass index (BMI) [Ratio] 32.01 kg/m2 32.01 kg/m2 eCW1 (On [facility]) Heart rate 62 /min 62 /min eCW1 ([facility]) Respiratory rate 18 /min 18 /min eCW1 ([facility]) Body temperature 98.6 [degF] 98.6 [degF] eCW1 ( On [facility]) Systolic blood pressure 150 mm[Hg] 150 mm[Hg] e CW1 (On [facility]) Diastolic blood pressure 92 mm[Hg] 92 mm[Hg] eCW1 (On [facility]) Systolic blood pressure 130 mm[Hg] 130 mm[Hg] M EDENT ([facility], [facility]) Diastolic blood pressure 80 mm[Hg] 80 mm[Hg] MEDENT ([facility], [facility]) Heart rate 61 /min 61 /min MEDENT ([facility], [facility]) Respiratory rate 16 /min 16 /min MEDENT ( [facility], [facility]) Oxygen saturation in Arterial blood by Pulse oximetry 96 % 96 % MEDENT ([facility], [facility]) Body temperature 98.2 [degF] 98.2 [degF] MEDENT ([facility], [facility]) Body weight 220.00 [lb_av] 220.00 [lb_av] MEDEN T ([facility], [facility]) Body height 68 [in_i] 68 [in_i] MEDENT ([facility], [facility]) 5'8" Body mass index (BMI) [Ratio] 33.4 kg/m2 33.4 k g/m2 MEDENT ([facility], [facility]) Body weight 211.0 [lb_av] 211.0 [lb_av] eCW1 ([facility]) Body height 67.75 [in_i] 67.75 [in_i] eCW1 (Critical access hospital) Body mass index (BMI) [Ratio] 32.32 kg/m2 32.32 kg/m2 eCW1 (On [facility]) Heart rate 80 /min 80 /min eCW1 ([facility]) Respiratory rate 20 /min 20 /min eCW1 ([facility]) Body temperature 97.2 [degF] 97.2 [degF] eCW1 ( On [facility]) Systolic blood pressure 132 mm[Hg] 132 mm[Hg] e CW1 (On [facility]) Diastolic blood pressure 80 mm[Hg] 80 mm[Hg] eCW1 (On [facility]) Body weight 211.0 [lb_av] 211.0 [lb_av] eCW1 ([facility]) Body height 67.75 [in_i] 67.75 [in_i] eCW1 (Critical access hospital) Body mass index (BMI) [Ratio] 32.32 kg/m2 32.32 kg/m2 eCW1 (On [facility]) Heart rate 80 /min 80 /min eCW1 ([facility]) Respiratory rate 20 /min 20 /min eCW1 ([facility]) Body temperature 97.2 [degF] 97.2 [degF] eCW1 ( On [facility]) Systolic blood pressure 132 mm[Hg] 132 mm[Hg] e CW1 (On [facility]) Diastolic blood pressure 80 mm[Hg] 80 mm[Hg] eCW1 (On [facility]) Body temperature 96.7 [degF] 96.7 [degF] MEDENT ([facility] ) ID Date Data Source [id number] 06/23/2020 07:31:41 AM [facility] Hospital Name Value Range Interpretation Code Description Data Source(s) [facility] Plan of Care Planned Activity Planned Date Details Description Data Source (s) tramadol hydrochloride 50 MG Oral Tablet 04/01/2021 12:00:00 AM EST eCW1 (On License Of [facility]) tramadol hydrochloride 50 MG Oral Tablet 04/01/2021 12:00:00 AM EST eCW1 (On [facility] Of [facility]) tramadol hydrochloride 50 MG Oral Tablet 04/01/2021 12:00:00 AM EST eCW1 (On [facility]) tramadol hydrochloride 50 MG Oral Tablet 04/01/2021 12:00:00 AM EST eCW1 (On [facility] Of [facility]) 168 HR Buprenorphine 0.01 MG/HR Transdermal Patch [BuT rans] 03/30/2021 12:00:00 AM EST eCW1 ([facility]) 168 HR Buprenorphine 0.01 MG/HR Transdermal Patch [BuT rans] 03/30/2021 12:00:00 AM EST eCW1 ([facility]) 168 HR Buprenorphine 0.01 MG/HR Transdermal Patch [BuT rans] 03/30/2021 12:00:00 AM EST eCW1 ([facility]) 168 HR Buprenorphine 0.01 MG/HR Transdermal Patch [BuT rans] 03/30/2021 12:00:00 AM EST eCW1 ([facility]) 168 HR Buprenorphine 0.01 MG/HR Transdermal Patch [BuT rans] 03/30/2021 12:00:00 AM EST eCW1 ([facility]) 168 HR Buprenorphine 0.01 MG/HR Transdermal Patch [BuT rans] 03/30/2021 12:00:00 AM EST eCW1 ([facility]) tramadol hydrochloride 50 MG Oral Tablet 03/27/2021 12:00:00 AM EST eCW1 (On [facility]) tramadol hydrochloride 50 MG Oral Tablet 03/27/2021 12:00:00 AM EST eCW1 (On [facility] Of [facility]) 24 HR tramadol hydrochloride 100 MG Extended Release O ral Tablet 03/25/2021 12:00:00 AM EST eCW1 ([facility]) 24 HR tramadol hydrochloride 100 MG Extended Release O ral Tablet 03/25/2021 12:00:00 AM EST eCW1 ([facility]) [place] 75 MCG 03/24/2021 12:00:00 AM EST eCW1 (On [facility] Of [facility]) [place] 75 MCG 03/24/2021 12:00:00 AM EST eCW1 (On [facility] Of [facility]) [place] 75 MCG 03/24/2021 12:00:00 AM EST eCW1 (On [facility] Of [facility]) [place] 75 MCG 03/24/2021 12:00:00 AM EST eCW1 (On [facility]) [place] 75 MCG 03/24/2021 12:00:00 AM EST eCW1 (On [facility]) [place] 75 MCG 03/24/2021 12:00:00 AM EST eCW1 (On [facility]) [place] 75 MCG 03/24/2021 12:00:00 AM EST eCW1 (On [facility]) [place] 75 MCG 03/24/2021 12:00:00 AM EST eCW1 (On [facility]) [place] 75 MCG 03/24/2021 12:00:00 AM EST eCW1 (On [facility]) [place] 75 MCG 03/24/2021 12:00:00 AM EST eCW1 (On [facility]) tramadol hydrochloride 50 MG Oral Tablet 02/20/2021 12:00:00 AM EDT eCW1 (On [facility]) tramadol hydrochloride 50 MG Oral Tablet 02/20/2021 12:00:00 AM EDT eCW1 (On [facility]) tramadol hydrochloride 50 MG Oral Tablet 02/20/2021 12:00:00 AM EDT eCW1 (On [facility]) tramadol hydrochloride 50 MG Oral Tablet 02/20/2021 12:00:00 AM EDT eCW1 (On [facility]) tramadol hydrochloride 50 MG Oral Tablet 02/20/2021 12:00:00 AM EDT eCW1 (On [facility]) tramadol hydrochloride 50 MG Oral Tablet 02/20/2021 12:00:00 AM EDT eCW1 (On [facility]) Liraglutide 18 MG/3ML 02/19/2021 12:00:00 AM EDT eCW1 (On [facility]) Liraglutide 18 MG/3ML 02/19/2021 12:00:00 AM EDT eCW1 (On [facility]) Liraglutide 18 MG/3ML 02/19/2021 12:00:00 AM EDT eCW1 (On [facility]) Liraglutide 18 MG/3ML 02/19/2021 12:00:00 AM EDT eCW1 (On [facility]) Liraglutide 18 MG/3ML 02/19/2021 12:00:00 AM EDT eCW1 (On [facility]) Liraglutide 18 MG/3ML 02/19/2021 12:00:00 AM EDT eCW1 (On [facility]) Liraglutide 18 MG/3ML 02/19/2021 12:00:00 AM EDT eCW1 (On [facility]) Liraglutide 18 MG/3ML 02/19/2021 12:00:00 AM EDT eCW1 (On [facility]) Liraglutide 18 MG/3ML 02/19/2021 12:00:00 AM EDT eCW1 (On [facility]) Liraglutide 18 MG/3ML 02/19/2021 12:00:00 AM EDT eCW1 (On [facility]) Liraglutide 18 MG/3ML 02/19/2021 12:00:00 AM EDT eCW1 (On [facility]) Liraglutide 18 MG/3ML 02/19/2021 12:00:00 AM EDT eCW1 (On [facility]) Liraglutide 18 MG/3ML 02/19/2021 12:00:00 AM EDT eCW1 (On [facility]) Liraglutide 18 MG/3ML 02/19/2021 12:00:00 AM EDT eCW1 (On [facility] Of [facility]) [place] 75 MCG 02/19/2021 12:00:00 AM EDT eCW1 (On [facility]) Liraglutide 18 MG/3ML 02/19/2021 12:00:00 AM EDT eCW1 (On [facility]) Liraglutide 18 MG/3ML 02/19/2021 12:00:00 AM EDT eCW1 (On [facility]) Liraglutide 18 MG/3ML 02/19/2021 12:00:00 AM EDT eCW1 (On [facility] Of [facility]) Nortriptyline 25 MG Oral Capsule 11/11/2020 12:00:00 AM EDT eCW1 (On [facility] Of [facility]) Nortriptyline 25 MG Oral Capsule 11/11/2020 12:00:00 AM EDT eCW1 (On [facility] Of [facility]) Nortriptyline 25 MG Oral Capsule 11/11/2020 12:00:00 AM EDT eCW1 (On [facility]) Nortriptyline 25 MG Oral Capsule 11/11/2020 12:00:00 AM EDT eCW1 (On [facility] Of [facility]) Nortriptyline 25 MG Oral Capsule 11/11/2020 12:00:00 AM EDT eCW1 (On [facility]) Nortriptyline 25 MG Oral Capsule 11/11/2020 12:00:00 AM EDT eCW1 (On [facility]) Nortriptyline 25 MG Oral Capsule 11/11/2020 12:00:00 AM EDT eCW1 (On [facility]) Nortriptyline 25 MG Oral Capsule 11/11/2020 12:00:00 AM EDT eCW1 (On [facility]) Nortriptyline 25 MG Oral Capsule 11/11/2020 12:00:00 AM EDT eCW1 (On [facility]) Nortriptyline 25 MG Oral Capsule 11/11/2020 12:00:00 AM EDT eCW1 (On [facility]) Chlorthalidone 25 MG Oral Tablet 11/06/2020 12:00:00 AM EDT eCW1 (On [facility] Of [facility]) Chlorthalidone 25 MG Oral Tablet 11/06/2020 12:00:00 AM EDT eCW1 (On [facility] Of [facility]) Chlorthalidone 25 MG Oral Tablet 11/06/2020 12:00:00 AM EDT eCW1 (On [facility] Of [facility]) Sucralfate 100 MG/ML Oral Suspension [Carafate] 08/19/2020 12:00:00 AM EDT eCW1 (On [facility] Of [facility]) lansoprazole 30 MG Delayed Release Oral Capsule 08/19/2020 12:00:00 AM EDT eCW1 (On [facility] Of [facility]) PARoxetine HCl 10 MG 08/19/2020 12:00:00 AM EDT eCW1 (On [facility] Of [facility]) Sucralfate 100 MG/ML Oral Suspension [Carafate] 08/19/2020 12:00:00 AM EDT eCW1 (On [facility] Of [facility]) lansoprazole 30 MG Delayed Release Oral Capsule 08/19/2020 12:00:00 AM EDT eCW1 (On [facility] Of [facility]) Paroxetine HCl 10 MG 08/19/2020 12:00:00 AM EDT eCW1 (On [facility] Of [facility]) Sucralfate 100 MG/ML Oral Suspension [Carafate] 08/19/2020 12:00:00 AM EDT eCW1 (On [facility] Of [facility]) lansoprazole 30 MG Delayed Release Oral Capsule 08/19/2020 12:00:00 AM EDT eCW1 (On [facility] Of [facility]) Paroxetine HCl 10 MG 08/19/2020 12:00:00 AM EDT eCW1 (On [facility] Of [facility]) Sucralfate 100 MG/ML Oral Suspension [Carafate] 08/19/2020 12:00:00 AM EDT eCW1 (On [facility] Of [facility]) lansoprazole 30 MG Delayed Release Oral Capsule 08/19/2020 12:00:00 AM EDT eCW1 (On [facility] Of [facility]) Paroxetine HCl 10 MG 08/19/2020 12:00:00 AM EDT eCW1 (On [facility] Of [facility]) Sucralfate 100 MG/ML Oral Suspension [Carafate] 08/19/2020 12:00:00 AM EDT eCW1 (On [facility] Of [facility]) Paroxetine HCl 10 MG 08/19/2020 12:00:00 AM EDT eCW1 (On [facility] Of [facility]) lansoprazole 30 MG Delayed Release Oral Capsule 08/19/2020 12:00:00 AM EDT eCW1 (On [facility] Of [facility]) Paroxetine HCl 10 MG 08/19/2020 12:00:00 AM EDT eCW1 (On [facility] Of [facility]) Sucralfate 100 MG/ML Oral Suspension [Carafate] 08/19/2020 12:00:00 AM EDT eCW1 (On [facility] Of [facility]) lansoprazole 30 MG Delayed Release Oral Capsule 08/19/2020 12:00:00 AM EDT eCW1 (On [facility] Of [facility]) Paroxetine HCl 10 MG 08/19/2020 12:00:00 AM EDT eCW1 (On [facility] Of [facility]) Sucralfate 100 MG/ML Oral Suspension [Carafate] 08/19/2020 12:00:00 AM EDT eCW1 (On License Of [facility]) lansoprazole 30 MG Delayed Release Oral Capsule 08/19/2020 12:00:00 AM EDT eCW1 (On License Of [facility]) Paroxetine HCl 10 MG 08/19/2020 12:00:00 AM EDT eCW1 (On License Of [facility]) lansoprazole 30 MG Delayed Release Oral Capsule 08/19/2020 12:00:00 AM EDT eCW1 (On License Of [facility]) Sucralfate 100 MG/ML Oral Suspension [Carafate] 08/19/2020 12:00:00 AM EDT eCW1 (On License Of [facility]) Estradiol 0.1 MG/ML Vaginal Cream 08/11/2020 12:00:00 AM EDT eCW1 (On License Of [facility]) Estradiol 0.1 MG/ML Vaginal Cream 08/11/2020 12:00:00 AM EDT eCW1 (On License Of [facility]) Estradiol 0.1 MG/ML Vaginal Cream 08/11/2020 12:00:00 AM EDT eCW1 (On License Of [facility]) Phenazopyridine hydrochloride 200 MG Oral Tablet 08/08/2020 12:00:0 0 AM EDT eCW1 (On License Of [facility]) Ciprofloxacin 500 MG Oral Tablet [Cipro] 08/08/2020 12:00:00 AM EDT eCW1 (On License Of [facility]) Phenazopyridine hydrochloride 200 MG Oral Tablet 08/08/2020 12:00:0 0 AM EDT eCW1 (On License Of [facility]) Ciprofloxacin 500 MG Oral Tablet [Cipro] 08/08/2020 12:00:00 AM EDT eCW1 (On License Of [facility]) Phenazopyridine hydrochloride 200 MG Oral Tablet 08/08/2020 12:00:0 0 AM EDT eCW1 (On License Of [facility]) Ciprofloxacin 500 MG Oral Tablet [Cipro] 08/08/2020 12:00:00 AM EDT eCW1 (On License Of [facility]) Phenazopyridine hydrochloride 200 MG Oral Tablet 08/08/2020 12:00:0 0 AM EDT eCW1 (On License Of [facility]) Ciprofloxacin 500 MG Oral Tablet [Cipro] 08/08/2020 12:00:00 AM EDT eCW1 (On License Of [facility]) Ondansetron 4 MG Disintegrating Oral Tablet 07/07/2020 12:00:00 AM EST eCW1 (On License Of [facility]) Ondansetron 4 MG Disintegrating Oral Tablet 07/07/2020 12:00:00 AM EST eCW1 (On License Of [facility]) Ondansetron 4 MG Disintegrating Oral Tablet 07/07/2020 12:00:00 AM EST eCW1 (On License Of [facility]) Ondansetron 4 MG Disintegrating Oral Tablet 07/07/2020 12:00:00 AM EST eCW1 (On License Of [facility]) Ondansetron 4 MG Disintegrating Oral Tablet 07/07/2020 12:00:00 AM EST eCW1 (On License Of [facility]) Ondansetron 4 MG Disintegrating Oral Tablet 07/07/2020 12:00:00 AM EST eCW1 (On License Of [facility]) Ondansetron 4 MG Disintegrating Oral Tablet 07/07/2020 12:00:00 AM EST eCW1 (On License Of [facility]) Ondansetron 4 MG Disintegrating Oral Tablet 07/07/2020 12:00:00 AM EST eCW1 (On License Of [facility]) Ondansetron 4 MG Disintegrating Oral Tablet 07/07/2020 12:00:00 AM EST eCW1 (On License Of [facility]) gabapentin 100 MG Oral Capsule 06/30/2020 12:00:00 AM EST eCW1 (On License Of [facility]) gabapentin 100 MG Oral Capsule 06/30/2020 12:00:00 AM EST eCW1 (On License Of [facility]) gabapentin 100 MG Oral Capsule 06/30/2020 12:00:00 AM EST eCW1 (On License Of [facility]) gabapentin 100 MG Oral Capsule 06/30/2020 12:00:00 AM EST eCW1 (On License Of [facility]) gabapentin 100 MG Oral Capsule 06/30/2020 12:00:00 AM EST eCW1 (On License Of [facility]) gabapentin 100 MG Oral Capsule 06/30/2020 12:00:00 AM EST eCW1 (On License Of [facility]) gabapentin 100 MG Oral Capsule 06/30/2020 12:00:00 AM EST eCW1 (On License Of [facility]) gabapentin 100 MG Oral Capsule 06/30/2020 12:00:00 AM EST eCW1 (On License Of [facility]) gabapentin 100 MG Oral Capsule 06/30/2020 12:00:00 AM EST eCW1 (On License Of [facility]) PredniSONE ([place]) 10mg 06/23/2020 12:00:00 AM EST eCW1 (On License Of [facility]) PredniSONE ([place]) 10mg 06/23/2020 12:00:00 AM EST eCW1 (On License Of [facility]) PredniSONE ([place]) 10mg 06/23/2020 12:00:00 AM EST eCW1 (On License Of [facility]) PredniSONE ([place]) 10mg 06/23/2020 12:00:00 AM EST eCW1 (On License Of [facility]) PredniSONE ([place]) 10mg 06/23/2020 12:00:00 AM EST eCW1 (On License Of [facility]) PredniSONE ([place]) 10mg 06/23/2020 12:00:00 AM EST eCW1 (On License Of [facility]) PredniSONE ([place]) 10mg 06/23/2020 12:00:00 AM EST eCW1 (On License Of [facility]) PredniSONE ([place]) 10mg 06/23/2020 12:00:00 AM EST eCW1 (On License Of [facility]) PredniSONE ([place]) 10mg 06/23/2020 12:00:00 AM EST eCW1 (On License Of [facility]) Sodium Chloride 0.111 MEQ/ML Nasal [place] [[place] brand of sodium chloride] 06/20/2020 12:00:00 AM EST eCW1 (Critical access hospital) Sodium Chloride 0.111 MEQ/ML Nasal [place] [[place] brand of sodium chloride] 06/20/2020 12:00:00 AM EST eCW1 (Critical access hospital) Sodium Chloride 0.111 MEQ/ML Nasal [place] [[place] brand of sodium chloride] 06/20/2020 12:00:00 AM EST eCW1 (Critical access hospital) duloxetine 30 MG Delayed Release Oral Capsule 05/19/2020 12:00:00 A M EST eCW1 (On License Of [facility]) duloxetine 30 MG Delayed Release Oral Capsule 05/19/2020 12:00:00 A M EST eCW1 (On License Of [facility]) duloxetine 30 MG Delayed Release Oral Capsule 05/19/2020 12:00:00 A M EST eCW1 (On License Of [facility]) duloxetine 30 MG Delayed Release Oral Capsule 05/19/2020 12:00:00 A M EST eCW1 (On License Of [facility]) duloxetine 30 MG Delayed Release Oral Capsule 05/19/2020 12:00:00 A M EST eCW1 (On License Of [facility]) duloxetine 30 MG Delayed Release Oral Capsule 05/19/2020 12:00:00 A M EST eCW1 (On License Of [facility]) duloxetine 30 MG Delayed Release Oral Capsule 05/19/2020 12:00:00 A M EST eCW1 (On License Of [facility]) duloxetine 30 MG Delayed Release Oral Capsule 05/19/2020 12:00:00 A M EST eCW1 (On License Of [facility]) duloxetine 30 MG Delayed Release Oral Capsule 05/19/2020 12:00:00 A M EST eCW1 (On License Of [facility]) duloxetine 30 MG Delayed Release Oral Capsule 05/19/2020 12:00:00 A M EST eCW1 (On License Of [facility]) duloxetine 30 MG Delayed Release Oral Capsule 05/19/2020 12:00:00 A M EST eCW1 (On License Of [facility]) telmisartan 20 MG Oral Tablet 05/01/2020 12:00:00 AM EST eCW1 (On License Of [facility]) telmisartan 20 MG Oral Tablet 05/01/2020 12:00:00 AM EST eCW1 (On License Of [facility]) telmisartan 20 MG Oral Tablet 05/01/2020 12:00:00 AM EST eCW1 (On License Of [facility]) telmisartan 20 MG Oral Tablet 05/01/2020 12:00:00 AM EST eCW1 (On License Of [facility]) telmisartan 20 MG Oral Tablet 05/01/2020 12:00:00 AM EST eCW1 (On License Of [facility]) telmisartan 20 MG Oral Tablet 05/01/2020 12:00:00 AM EST eCW1 (On License Of [facility]) telmisartan 20 MG Oral Tablet 05/01/2020 12:00:00 AM EST eCW1 (On License Of [facility]) telmisartan 20 MG Oral Tablet 05/01/2020 12:00:00 AM EST eCW1 (On License Of [facility]) telmisartan 20 MG Oral Tablet 05/01/2020 12:00:00 AM EST eCW1 (On License Of [facility]) telmisartan 20 MG Oral Tablet 05/01/2020 12:00:00 AM EST eCW1 (On License Of [facility]) telmisartan 20 MG Oral Tablet 05/01/2020 12:00:00 AM EST eCW1 (On License Of [facility]) telmisartan 20 MG Oral Tablet 05/01/2020 12:00:00 AM EST eCW1 (On License Of [facility]) telmisartan 20 MG Oral Tablet 05/01/2020 12:00:00 AM EST eCW1 (On License Of [facility]) telmisartan 20 MG Oral Tablet 05/01/2020 12:00:00 AM EST eCW1 (On License Of [facility]) telmisartan 20 MG Oral Tablet 05/01/2020 12:00:00 AM EST eCW1 (On License Of [facility]) telmisartan 20 MG Oral Tablet 05/01/2020 12:00:00 AM EST eCW1 (On License Of [facility]) Nebulizer - 04/21/2020 12:00:00 AM EST e CW1 (On License Of [facility]) Albuterol 0.83 MG/ML Inhalant Solution 04/21/2020 12:00:00 AM EST eCW1 (On License Of [facility]) Nebulizer/Tubing/Mouthpiece - 04/21/2020 12:00:00 AM EST eCW1 (On License Of [facility]) Nebulizer - 04/21/2020 12:00:00 AM EST e CW1 (On License Of [facility]) Albuterol 0.83 MG/ML Inhalant Solution 04/21/2020 12:00:00 AM EST eCW1 (On License Of [facility]) Nebulizer/Tubing/Mouthpiece - 04/21/2020 12:00:00 AM EST eCW1 (On License Of [facility]) Nebulizer - 04/21/2020 12:00:00 AM EST e CW1 (On License Of [facility]) Albuterol 0.83 MG/ML Inhalant Solution 04/21/2020 12:00:00 AM EST eCW1 (On License Of [facility]) Nebulizer/Tubing/Mouthpiece - 04/21/2020 12:00:00 AM EST eCW1 (On License Of [facility]) Nebulizer - 04/21/2020 12:00:00 AM EST e CW1 (On License Of [facility]) Albuterol 0.83 MG/ML Inhalant Solution 04/21/2020 12:00:00 AM EST eCW1 (On License Of [facility]) Nebulizer/Tubing/Mouthpiece - 04/21/2020 12:00:00 AM EST eCW1 (On License Of [facility]) Albuterol 0.83 MG/ML Inhalant Solution 04/21/2020 12:00:00 AM EST eCW1 (On License Of [facility]) Nebulizer/Tubing/Mouthpiece - 04/21/2020 12:00:00 AM EST eCW1 (On License Of [facility]) Nebulizer - 04/21/2020 12:00:00 AM EST e CW1 (On License Of [facility]) Amlodipine 2.5 MG Oral Tablet 04/21/2020 12:00:00 AM EST eCW1 (On License Of [facility]) Albuterol 0.83 MG/ML Inhalant Solution 04/21/2020 12:00:00 AM EST eCW1 (On License Of [facility]) Nebulizer - 04/21/2020 12:00:00 AM EST e CW1 (On License Of [facility]) Nebulizer/Tubing/Mouthpiece - 04/21/2020 12:00:00 AM EST eCW1 (On License Of [facility]) duloxetine 30 MG Delayed Release Oral Capsule 03/25/2020 12:00:00 A M EST eCW1 (On License Of [facility]) duloxetine 30 MG Delayed Release Oral Capsule 03/25/2020 12:00:00 A M EST eCW1 (On License Of [facility]) duloxetine 30 MG Delayed Release Oral Capsule 03/25/2020 12:00:00 A M EST eCW1 (On License Of [facility]) carvedilol 12.5 MG Oral Tablet 03/17/2020 12:00:00 AM EST eCW1 (On License Of [facility]) carvedilol 12.5 MG Oral Tablet 03/17/2020 12:00:00 AM EST eCW1 (On License Of [facility]) carvedilol 12.5 MG Oral Tablet 03/17/2020 12:00:00 AM EST eCW1 (On License Of [facility]) carvedilol 12.5 MG Oral Tablet 03/17/2020 12:00:00 AM EST eCW1 (On License Of [facility]) carvedilol 12.5 MG Oral Tablet 03/17/2020 12:00:00 AM EST eCW1 (On License Of [facility]) carvedilol 12.5 MG Oral Tablet 03/17/2020 12:00:00 AM EST eCW1 (On License Of [facility]) carvedilol 12.5 MG Oral Tablet 03/17/2020 12:00:00 AM EST eCW1 (On License Of [facility]) carvedilol 12.5 MG Oral Tablet 03/17/2020 12:00:00 AM EST eCW1 (On License Of [facility]) carvedilol 12.5 MG Oral Tablet 03/17/2020 12:00:00 AM EST eCW1 (On License Of [facility]) carvedilol 12.5 MG Oral Tablet 03/17/2020 12:00:00 AM EST eCW1 (On License Of [facility]) carvedilol 12.5 MG Oral Tablet 03/17/2020 12:00:00 AM EST eCW1 (On License Of [facility]) carvedilol 12.5 MG Oral Tablet 03/17/2020 12:00:00 AM EST eCW1 (On License Of [facility]) carvedilol 12.5 MG Oral Tablet 03/17/2020 12:00:00 AM EST eCW1 (On License Of [facility]) carvedilol 12.5 MG Oral Tablet 03/17/2020 12:00:00 AM EST eCW1 (On License Of [facility]) carvedilol 6.25 MG Oral Tablet 03/17/2020 12:00:00 AM EST eCW1 (On License Of [facility]) carvedilol 6.25 MG Oral Tablet 03/17/2020 12:00:00 AM EST eCW1 (On License Of [facility]) carvedilol 12.5 MG Oral Tablet 03/17/2020 12:00:00 AM EST eCW1 (On License Of [facility]) carvedilol 12.5 MG Oral Tablet 03/17/2020 12:00:00 AM EST eCW1 (On License Of [facility]) carvedilol 12.5 MG Oral Tablet 03/17/2020 12:00:00 AM EST eCW1 (On License Of [facility]) carvedilol 6.25 MG Oral Tablet 03/17/2020 12:00:00 AM EST eCW1 (On License Of [facility]) carvedilol 6.25 MG Oral Tablet 03/17/2020 12:00:00 AM EST eCW1 (On License Of [facility]) carvedilol 6.25 MG Oral Tablet 03/17/2020 12:00:00 AM EST eCW1 (On License Of [facility]) carvedilol 6.25 MG Oral Tablet 03/17/2020 12:00:00 AM EST eCW1 (On License Of [facility]) carvedilol 6.25 MG Oral Tablet 03/17/2020 12:00:00 AM EST eCW1 (On License Of [facility]) carvedilol 6.25 MG Oral Tablet 03/17/2020 12:00:00 AM EST eCW1 (On License Of [facility]) carvedilol 6.25 MG Oral Tablet 03/17/2020 12:00:00 AM EST eCW1 (On License Of [facility]) 168 HR Buprenorphine 0.005 MG/HR Transdermal Patch [Bu Trans] 02/28/2020 12:00:00 AM EDT eCW1 ([facility]) 168 HR Buprenorphine 0.005 MG/HR Transdermal Patch [Bu Trans] 02/28/2020 12:00:00 AM EDT eCW1 ([facility])
[2021-04-20] MEDS ORDERED: PRED20TA PO (17:28)
[2021-04-20] MEDS ORDERED: LANS30CA93 PO (17:28)
[2021-04-20] MEDS ORDERED: TRAZ-186 PO (17:28)
[2021-04-20] MEDS ORDERED: ROSU20TA5 PO (17:28)
[2021-04-20] MEDS ORDERED: HOME MED LIST COMPLETE! XX SCH (17:30)
[2021-04-20] MEDS ORDERED: KETOROLAC 30 MG/ML 1ML VIAL IV ONE (18:20)
[2021-04-20] MEDS ORDERED: diazePAM 10 MG TAB PO PRN (18:20)
[2021-04-20] MEDS ORDERED: NS 1,000 ML IV SCH (18:35)
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
[2021-04-20] MEDS ORDERED: GI COCKTAIL 50ML BTL(HYOSCYAMINE/MAALOX/LIDOCAINE VISCOUS)(1:3:1) PO PRN (18:40)
[2021-04-20] MEDS: MONTELUKAST 10 MG TAB PO SCH (21:00)
[2021-04-21] MEDS: traZODone 50 MG TAB PO SCH ×2 (02:26→20:47)
[2021-04-21] MEDS: CYCLOBENZAPRINE 10MG TABLET PO SCH ×2 (02:26→20:46)
[2021-04-21] MEDS: DOCUSATE SODIUM 100MG CAPSULE PO SCH ×3 (02:28→20:46)
[2021-04-21] MEDS: CARVedilol 12.5 MG TAB PO SCH ×3 (02:28→20:47)
[2021-04-21] MEDS: PANTOPRAZOLE 40MG VIAL (C9113 PER 1) IV SCH ×3 (02:29→20:45)
[2021-04-21] MEDS: ROSUVASTATIN 10 MG TAB (CRESTOR) PO SCH ×2 (02:29→20:47)
[2021-04-21] MEDS: LIDOCAINE 5% (LIDODERM) PATCH TD SCH ×2 (02:30→20:48)
[2021-04-21] MEDS: ACETAMINOPHEN 500 MG TAB PO SCH ×3 (02:33→20:46)
[2021-04-21 06:00] VITALS: BP 111/70
[2021-04-21] MEDS: LEVOTHYROXINE 25MCG TABLET (0.025MG) PO SCH (06:00)
[2021-04-21 06:37] LABS: BASO % 0.3 % (0.0-1.0); EOS # 0.1 10^3/uL (0.0-0.5); EOS % 0.5 % (0.0-3.0); HEMATOCRIT 44.4 % (36.0-47.0); HEMOGLOBIN 14.8 g/dl (12.0-15.5); LYMPH % 40.2 % (24.0-44.0); MEAN CORPUSCULAR HEMOGLOBIN 31.9 pg (27.0-33.0); MEAN CORPUSCULAR HGB CONC 33.3 g/dl (32.0-36.5); MEAN CORPUSCULAR VOLUME 95.7 fl (80.0-96.0); MONO % 12.4 % (2.0-8.0); NEUTROPHILS # 5.8 10^3/uL (1.5-8.5); NEUTROPHILS % 46.1 % (36.0-66.0); PLATELET COUNT, AUTOMATED 246 10^3/uL (150-450); RED BLOOD COUNT 4.64 10^6/uL (4.00-5.40); WHITE BLOOD COUNT 12.5 10^3/uL (4.0-10.0)
[2021-04-21 06:42] LABS: MONO # 1.6 10^3/uL (0.0-0.8)
[2021-04-21 07:04] LABS: CALCIUM LEVEL 9.1 MG/DL (8.8-10.2); CREATININE FOR GFR 1.02 MG/DL (0.55-1.30); GLOMERULAR FILTRATION RATE 58.8 (>45); POTASSIUM SERUM 3.3 MEQ/L (3.5-5.1)
[2021-04-21] MEDS: ALBUTEROL SULFATE 2.5 MG/0.5 ML INH NEB SOLN NEB SCH ×3 (07:30→19:28)
[2021-04-21] MEDS: KETOROLAC 30 MG/ML 1ML VIAL IV SCH ×3 (08:46→20:45)
[2021-04-21] MEDS: CLOPIDOGREL 75 MG TAB PO SCH (08:46)
[2021-04-21] MEDS: FOLIC ACID 1 MG TAB PO SCH (08:46)
[2021-04-21] MEDS: ENOXAPARIN 40MG/0.4ML SYRINGE (J1650 PER 10MG) SC SCH (08:47)
[2021-04-21] MEDS: POTASSIUM CHLORIDE 10MEQ SR TABLET PO SCH (08:47)
[2021-04-21] MEDS: **NOTE PATIENT COMMENT** MISC XX SCH (08:48)
[2021-04-21] MEDS ORDERED: predniSONE 20 MG TAB PO SCH (09:00)
[2021-04-21] MEDS: diazePAM 5MG TABLET PO PRN ×2 (10:03→20:47)
--- NOTE | 2021-04-21 10:16 | IPNPDOC ---
Subjective Date Seen The patient was seen on 04/21/21. Subjective Chief Complaint/HPI Complains of headache this morning. Thinks its her migraine. also complains of right buttock pain with pain down the right leg. Says its her sciatica acting up. Her abdominal discomfort is better today. No SOB. No cough or phlegm. Still feels fatigued and tired. Her back pain is better. Objective Physical Examination General Exam: Positive: Alert, Cooperative, No Acute Distress Eye Exam: Positive: PERRLA, Conjunctiva & lids normal, EOMI; Negative: Sclera icteric ENT Exam: Positive: Atraumatic, Mucous membr. moist/pink, Pharynx Normal Neck Exam: Positive: Supple; Negative: JVD, thyromegaly Chest Exam: Positive: Normal air movement, Diminished, Other (few bibasilar crackles); Negative: Clear to auscultation, Rales, Rhonchi, Wheezing Heart Exam: Positive: Rate Normal, Regular Rhythm, Normal S1, Normal S2; Negative: Murmurs, Rubs Abdomen Exam: Positive: Normal bowel sounds, Soft, Tenderness (epigastric) Extremity Exam: Negative: Clubbing, Cyanosis, Edema Skin Exam: Positive: Nl turgor and temperature; Negative: Breakdown, Lesion Psych Exam: Positive: Memory Intact, Oriented x 3 Assessment /Plan Assessment 60-year-old female with past medical history of obesity JORDAN does not use CPAP, former smoker, COPD, hypertension, hypothyroid, allergic rhinitis, migraine, depression, PTSD, anxiety initially presented to the emergency room with 5 days history of body aches back pain chest pain, malaise, weakness, chills, and shortness of breath . She initially presented to the ED 2 days ago on 04/18/2021 with the same complaints and was diagnosed with bilateral lower lobe pneumonia patient was suggested admission however she refused to be admitted and was discharged home with levofloxacin and prednisone. She she returns back to ED today with no improvement of her symptoms and with persistence of shortness of breath, increased weakness and fatigue and now she also has upper abdominal pain and nausea. She also has severe bilateral lower chest and mid back pain for which she took tramadol at home without any relief. Respiratory panel has been negative. She also complained of headache dizziness. She received moderna vaccine on 03/26/2021. Chest x-ray remains unchanged from prior visit. A CT angio of the chest was done in the prior visit on 04/18/2021 which showed bilateral lower lobe infiltrates as well as atelectasis in the right lower and middle lobe it was negative for any PE. Patient is admitted for pneumonia with failed outpatient therapy. Bilateral lower lobe pneumonia We will continue with ceftriaxone and azithromycin Patient does not have any sputum production Blood cultures have been sent Upper abdominal pain Possibly due to gastritis from steroids and antibiotics We will continue with PPI now better Back pain and bilateral lower chest pain This is musculoskeletal likely related to the infection He may have had a initial viral infection followed by bacterial Will give Toradol Hypothyroid continue with Synthroid Depression/PTSD/insomnia/generalized anxiety disorder Continue with trazodone, diazepam Hyperlipidemia Continue statin History of CVA/TIA Continue Plavix and statin Hypertension Continue Coreg Will hold diuretics COPD Continue inhalers and nebulizers JORDAN Does not use CPAP. Plan/VTE VTE Prophylaxis Ordered?: Yes VS, I&O, 24H, Fishbone Vital Signs/I&O Vital Signs Date Time Temp Pulse Resp B/P (MAP) Pulse Ox O2 Delivery O2 Flow Rate FiO2 04/21/21 08:47 92 114/72 04/21/21 06:00 98.1 19 70 Room Air I&O- Last 24 Hours up to 6 AM 04/21/21 06:00 Intake Total 405 ml Balance 405 ml Laboratory Data 24H LABS Laboratory Tests 2 04/20/21 15:29: Immature Granulocyte % (Auto) 0.4, Neutrophils (%) (Auto) 79.6H, Lymphocytes (%) (Auto) 15.8L, Monocytes (%) (Auto) 4.0, Eosinophils (%) (Auto) 0.0, Basophils (%) (Auto) 0.2, Neutrophils # (Auto) 9.4H, Lymphocytes # (Auto) 1.9, Monocytes # (Auto) 0.5, Eosinophils # (Auto) 0.0, Basophils # (Auto) 0.0, Nucleated Red Blood Cells % (auto) 0.0, Anion Gap 7L, Glomerular Filtration Rate > 60.0, Calcium Level 9.8, Total Bilirubin 0.3, Direct Bilirubin < 0.1, Aspartate Amino Transf (AST/SGOT) 17, Alanine Aminotransferase (ALT/SGPT) 22, Alkaline Phosp hatase 98, Total Creatine Kinase 84, Creatine Kinase MB 2.5, Creatine Kinase MB Relative Index 2.98, Troponin I High Sensitivity 9.0, RZ-Rwt-W-Type Natriuretic Peptide 356H, Total Protein 7.2, Albumin 3.7, Albumin/Globulin Ratio 1.1L, Lipase 121, Thyroid Stimulating Hormone (TSH) 0.339L 04/21/21 05:32: Immature Granulocyte % (Auto) 0.5, Neutrophils (%) (Auto) 46.1, Lymphocytes (%) (Auto) 40.2, Monocytes (%) (Auto) 12.4H, Eosinophils (%) (Auto) 0.5, Basophils (%) (Auto) 0.3, Neutrophils # (Auto) 5.8, Lymphocytes # (Auto) 5.0, Monocytes # (Auto) 1.6H, Eosinophils # (Auto) 0.1, Basophils # (Auto) 0.0, Nucleated Red Blood Cells % (auto) 0.0, Anion Gap 9, Glomerular Filtration Rate 58.8, Calcium Level 9.1 CBC/BMP Laboratory Tests 04/20/21 15:29 04/21/21 05:32 Microbiology Microbiology 04/20/21 Blood Culture, Received Pending 04/20/21 Respiratory Virus Panel (PCR) (JOSE) - Final, Complete 04/20/21 Blood Culture, Received Pending Sally Key MD Apr 21, 2021 10:16
[2021-04-21 14:00] VITALS: BP 95/55
[2021-04-21] MEDS ORDERED: METOCLOPRAMIDE INJ 10MG/2ML VIAL (J2765 PER 1) IV ONE ×2 (14:35→18:30)
[2021-04-21] MEDS ORDERED: SUMAtriptan SUCCINATE 6 MG/0.5 ML VIAL SC ONE (16:00)
[2021-04-21] MEDS ORDERED: cefTRIAXone SOD 1 GM in D5W MINI-BAG PLUS 50 ML IV SCH (17:00)
[2021-04-21] MEDS ORDERED: AZITHROMYCIN INJ 500 MG, VIAL MATE ADAPTER 1 EACH in NS 250 ML IV SCH (18:00)
[2021-04-21 20:47] VITALS: BP 111/75
[2021-04-21] MEDS: MONTELUKAST 10 MG TAB PO SCH (20:47)
[2021-04-21 22:00] VITALS: BP 111/75
[2021-04-22] MEDS: ALBUTEROL SULFATE 2.5 MG/0.5 ML INH NEB SOLN NEB SCH ×2 (00:53→08:00)
[2021-04-22] MEDS: KETOROLAC 30 MG/ML 1ML VIAL IV SCH ×2 (03:52→08:26)
[2021-04-22 06:00] VITALS: BP 108/60
[2021-04-22] MEDS: LEVOTHYROXINE 25MCG TABLET (0.025MG) PO SCH (06:16)
[2021-04-22 06:32] LABS: BASO % 0.3 % (0.0-1.0); EOS # 0.1 10^3/uL (0.0-0.5); EOS % 0.6 % (0.0-3.0); HEMATOCRIT 43.5 % (36.0-47.0); HEMOGLOBIN 14.3 g/dl (12.0-15.5); LYMPH # 5.3 10^3/uL (1.5-5.0); LYMPH % 43.2 % (24.0-44.0); MEAN CORPUSCULAR HEMOGLOBIN 31.4 pg (27.0-33.0); MEAN CORPUSCULAR HGB CONC 32.9 g/dl (32.0-36.5); MEAN CORPUSCULAR VOLUME 95.6 fl (80.0-96.0); MONO # 1.2 10^3/uL (0.0-0.8); MONO % 9.4 % (2.0-8.0); NEUTROPHILS # 5.6 10^3/uL (1.5-8.5); NEUTROPHILS % 46.2 % (36.0-66.0); PLATELET COUNT, AUTOMATED 234 10^3/uL (150-450); RED BLOOD COUNT 4.55 10^6/uL (4.00-5.40); WHITE BLOOD COUNT 12.2 10^3/uL (4.0-10.0)
[2021-04-22 06:45] LABS: BLOOD UREA NITROGEN 29 MG/DL (7-18); CALCIUM LEVEL 8.9 MG/DL (8.8-10.2); CARBON DIOXIDE LEVEL 27 MEQ/L (21-32); CHLORIDE LEVEL 111 MEQ/L (98-107); CREATININE FOR GFR 0.85 MG/DL (0.55-1.30); GLOMERULAR FILTRATION RATE > 60.0 (>45); GLUCOSE, FASTING 99 MG/DL (70-100); POTASSIUM SERUM 3.3 MEQ/L (3.5-5.1); SODIUM LEVEL 146 MEQ/L (136-145)
[2021-04-22] MEDS: PANTOPRAZOLE 40MG VIAL (C9113 PER 1) IV SCH (08:25)
[2021-04-22] MEDS: diazePAM 5MG TABLET PO PRN (08:25)
[2021-04-22] MEDS: FOLIC ACID 1 MG TAB PO SCH (08:25)
[2021-04-22] MEDS: CLOPIDOGREL 75 MG TAB PO SCH (08:25)
[2021-04-22] MEDS: DOCUSATE SODIUM 100MG CAPSULE PO SCH (08:25)
[2021-04-22] MEDS: POTASSIUM CHLORIDE 10MEQ SR TABLET PO SCH (08:26)
[2021-04-22] MEDS: ENOXAPARIN 40MG/0.4ML SYRINGE (J1650 PER 10MG) SC SCH (08:27)
[2021-04-22] MEDS: CARVedilol 12.5 MG TAB PO SCH (08:27)
[2021-04-22] MEDS: **NOTE PATIENT COMMENT** MISC XX SCH (08:27)
[2021-04-22] MEDS: ACETAMINOPHEN 500 MG TAB PO SCH (08:27)
[2021-04-22] MEDS ORDERED: CEFD300CAP PO (10:02)
[2021-04-22] MEDS ORDERED: AZIT500T5 PO (10:02)
--- NOTE | 2021-04-22 10:21 | ECGEPIP ---
[facility] - ED Test Date: 2021-04-20 Pat Name: LIDIA BAUTISTA Department: Room: [place] [address] Gender: Female [employer]: FLACO : [id number] Requested By: KERLINE Urias Order Number: [id number] Reading MD: Morris Lakhani Measurements Intervals [place] Rate: 85 P: 19 [place]: 166 QRS: -9 QRSD: 92 T: 70 QT: 378 QTc: 449 Interpretive Statements Sinus rhythm with occasional premature ventricular complexes ST & T wave abnormality, consider anterolateral ischemia Similar to tracing done 04-18-21 but now with ectopy Electronically Signed on 04-22-2021 10:20:51 EST by Morris Lakhani
[2021-04-22] MEDS ORDERED: ONDANSETRON 4MG/2ML VIAL IV ONE (12:00)
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
== END 2021-04-22 12:55 | disposition home or self-care (01) | DRG 194 ==
LOC: M ED 14:24 → M ED INP 17:07 → M MS5PR 04-21 03:00
PROVIDERS: ADMIT Internal Medicine Nephrology; ATTEND Internal Medicine Nephrology
DX: J18.9 Pneumonia, unspecified organism (principal); J44.0 Chronic obstructive pulmonary disease with (acute) lower respiratory infection; F32.A Depression, unspecified; I10 Essential (primary) hypertension; E07.9 Disorder of thyroid, unspecified; F43.10 Post-traumatic stress disorder, unspecified; G47.33 Obstructive sleep apnea (adult) (pediatric); Z88.1 Allergy status to other antibiotic agents; Z88.2 Allergy status to sulfonamides; Z88.8 Allergy status to other drugs, medicaments and biological substances; Z79.899 Other long term (current) drug therapy; Z79.890 Hormone replacement therapy; Z79.01 Long term (current) use of anticoagulants; Z87.891 Personal history of nicotine dependence; E66.9 Obesity, unspecified; G43.909 Migraine, unspecified, not intractable, without status migrainosus; F41.1 Generalized anxiety disorder; Z20.822 Contact with and (suspected) exposure to COVID-19; G47.00 Insomnia, unspecified; M47.892 Other spondylosis, cervical region; M47.894 Other spondylosis, thoracic region; M19.90 Unspecified osteoarthritis, unspecified site; Z86.73 Personal history of transient ischemic attack (TIA), and cerebral infarction without residual deficits; Z91.19 Patient's noncompliance with other medical treatment and regimen; K29.70 Gastritis, unspecified, without bleeding

== ENCOUNTER 2021-04-23 16:19 | Emergency (ER) | payer MEDICARE ==
[~2021-04-23] VITALS: Ht 172.7 cm; Wt 99.0 kg
[~2021-04-23 16:19] MED LIST changes: +AZIT500T5 PO; +CEFD300CAP PO; -FLUO10CA16 PO; +FLUO10CA18 PO; +LANS30CA93 PO; -MONT10TA10 PO; +MONT10TA97 PO; +ROSU20TA5 PO; +TRAZ-186 PO
[2021-04-23 16:20] VITALS: BP 150/90
== END 2021-04-23 17:26 | disposition left against medical advice (07) ==
LOC: M ED 16:19
DX: Z53.29 Procedure and treatment not carried out because of patient's decision for other reasons (principal)

== ENCOUNTER 2021-04-25 12:10 | Emergency (ER) | payer MEDICARE ==
[~2021-04-25] VITALS: Ht 172.7 cm; Wt 100.0 kg
[2021-04-25] MEDS ORDERED: NS 1,000 ML IV ONE (12:45)
[2021-04-25 13:01] LABS: BASO % 0.4 % (0.0-1.0); EOS # 0.4 10^3/uL (0.0-0.5); HEMATOCRIT 49.7 % (36.0-47.0); HEMOGLOBIN 16.9 g/dl (12.0-15.5); LYMPH # 4.1 10^3/uL (1.5-5.0); LYMPH % 37.1 % (24.0-44.0); MEAN CORPUSCULAR HEMOGLOBIN 31.8 pg (27.0-33.0); MEAN CORPUSCULAR VOLUME 93.6 fl (80.0-96.0); MONO # 1.3 10^3/uL (0.0-0.8); NEUTROPHILS # 5.1 10^3/uL (1.5-8.5); NEUTROPHILS % 46.1 % (36.0-66.0); PLATELET COUNT, AUTOMATED 261 10^3/uL (150-450); RED BLOOD COUNT 5.31 10^6/uL (4.00-5.40); WHITE BLOOD COUNT 10.9 10^3/uL (4.0-10.0)
[2021-04-25 13:39] LABS: ALBUMIN 3.4 GM/DL (3.2-5.2); ALT/SGPT 24 U/L (12-78); BILIRUBIN,DIRECT 0.1 MG/DL (0.0-0.2); BILIRUBIN,TOTAL 0.3 MG/DL (0.2-1.0); BLOOD UREA NITROGEN 16 MG/DL (7-18); CALCIUM LEVEL 9.3 MG/DL (8.8-10.2); CARBON DIOXIDE LEVEL 28 MEQ/L (21-32); CHLORIDE LEVEL 106 MEQ/L (98-107); CREATININE FOR GFR 0.96 MG/DL (0.55-1.30); GLOMERULAR FILTRATION RATE > 60.0 (>45); GLUCOSE, FASTING 103 MG/DL (70-100); NT-PRO BNP 155 PG/ML (<125); POTASSIUM SERUM 4.1 MEQ/L (3.5-5.1); SODIUM LEVEL 142 MEQ/L (136-145); THYROXINE (T4) 9.3 UG/DL (4.5-12.0); TOTAL PROTEIN 6.8 GM/DL (6.4-8.2)
[2021-04-25] MEDS ORDERED: ISOVUE-370 76% 100ML VIAL As Ordered ONE (14:46)
[2021-04-25 17:00] VITALS: BP 101/57
[2021-04-25] MEDS ORDERED: ONDANSETRON 4 MG ORAL DISINTEGRATING TAB PO ONE (17:25)
[2021-04-25] MEDS ORDERED: ONDA4TAB6 PO (17:25)
== END 2021-04-25 17:46 | disposition home or self-care (01) ==
LOC: M ED 12:10
DX: E86.0 Dehydration (principal); I10 Essential (primary) hypertension; J44.9 Chronic obstructive pulmonary disease, unspecified; E03.9 Hypothyroidism, unspecified; F33.9 Major depressive disorder, recurrent, unspecified; F41.9 Anxiety disorder, unspecified; F43.10 Post-traumatic stress disorder, unspecified; G43.909 Migraine, unspecified, not intractable, without status migrainosus; G47.33 Obstructive sleep apnea (adult) (pediatric); Z79.899 Other long term (current) drug therapy; Z79.890 Hormone replacement therapy; Z88.1 Allergy status to other antibiotic agents; Z88.2 Allergy status to sulfonamides; Z88.8 Allergy status to other drugs, medicaments and biological substances
CPT/HCPCS: 36415; 70450; 71045; 71275; 80047; 80048; 80076; 81001; 83605; 83880; 84436; 84443; 84484; 85025; 87040; 87798; 93005; 93041; 94760; 99285; Q0162; Q9967

== ENCOUNTER → 2021-05-05 | Outpatient (REF) | payer MEDICARE ==
[~2021-05-05] MED LIST changes: +FLUO10CA16 PO; -FLUO10CA18 PO; +MONT10TA10 PO; -MONT10TA97 PO
[2021-05-05 17:54] LABS: BASO % 0.5 % (0.0-1.0); EOS # 0.2 10^3/uL (0.0-0.5); EOS % 2.9 % (0.0-3.0); HEMATOCRIT 50.1 % (36.0-47.0); HEMOGLOBIN 16.5 g/dl (12.0-15.5); LYMPH # 3.1 10^3/uL (1.5-5.0); LYMPH % 38.5 % (24.0-44.0); MEAN CORPUSCULAR HEMOGLOBIN 31.5 pg (27.0-33.0); MEAN CORPUSCULAR HGB CONC 32.9 g/dl (32.0-36.5); MEAN CORPUSCULAR VOLUME 95.6 fl (80.0-96.0); MONO # 1.1 10^3/uL (0.0-0.8); MONO % 13.4 % (2.0-8.0); NEUTROPHILS # 3.6 10^3/uL (1.5-8.5); NEUTROPHILS % 44.5 % (36.0-66.0); PLATELET COUNT, AUTOMATED 276 10^3/uL (150-450); RED BLOOD COUNT 5.24 10^6/uL (4.00-5.40); WHITE BLOOD COUNT 8.1 10^3/uL (4.0-10.0)
[2021-05-05 18:15] LABS: ALBUMIN 3.9 GM/DL (3.2-5.2); ALT/SGPT 25 U/L (12-78); BILIRUBIN,TOTAL 0.4 MG/DL (0.2-1.0); BLOOD UREA NITROGEN 12 MG/DL (7-18); CALCIUM LEVEL 9.6 MG/DL (8.8-10.2); CARBON DIOXIDE LEVEL 30 MEQ/L (21-32); CHLORIDE LEVEL 104 MEQ/L (98-107); CREATININE FOR GFR 0.96 MG/DL (0.55-1.30); GLOMERULAR FILTRATION RATE > 60.0 (>45); GLUCOSE, FASTING 103 MG/DL (70-100); POTASSIUM SERUM 3.9 MEQ/L (3.5-5.1); SODIUM LEVEL 141 MEQ/L (136-145); TOTAL PROTEIN 7.2 GM/DL (6.4-8.2)
== END ==
LOC: M SFHCPLAZ 16:49
PROVIDERS: ATTEND Physician Assistant Medical
DX: J18.9 Pneumonia, unspecified organism (principal)

== ENCOUNTER → 2021-06-05 | Outpatient (CLI) | payer MEDICARE ==
[~2021-06-05] MED LIST changes: -FLUO10CA16 PO; +FLUO10CA18 PO; -MONT10TA10 PO; +MONT10TA97 PO
[2021-06-05 10:41] LABS: BASO % 0.5 % (0.0-1.0); EOS # 0.4 10^3/uL (0.0-0.5); EOS % 4.4 % (0.0-3.0); HEMATOCRIT 50.1 % (36.0-47.0); HEMOGLOBIN 16.7 g/dl (12.0-15.5); LYMPH # 2.7 10^3/uL (1.5-5.0); LYMPH % 33.8 % (24.0-44.0); MEAN CORPUSCULAR HEMOGLOBIN 32.1 pg (27.0-33.0); MEAN CORPUSCULAR HGB CONC 33.3 g/dl (32.0-36.5); MEAN CORPUSCULAR VOLUME 96.2 fl (80.0-96.0); MONO # 0.9 10^3/uL (0.0-0.8); MONO % 10.7 % (2.0-8.0); NEUTROPHILS # 4.1 10^3/uL (1.5-8.5); NEUTROPHILS % 50.4 % (36.0-66.0); PLATELET COUNT, AUTOMATED 280 10^3/uL (150-450); RED BLOOD COUNT 5.21 10^6/uL (4.00-5.40); WHITE BLOOD COUNT 8.1 10^3/uL (4.0-10.0)
[2021-06-05 11:03] LABS: HEMOGLOBIN A1c 5.9 %
[2021-06-05 11:18] LABS: ALBUMIN 3.7 GM/DL (3.2-5.2); ALT/SGPT 23 U/L (12-78); BILIRUBIN,TOTAL 0.4 MG/DL (0.2-1.0); BLOOD UREA NITROGEN 17 MG/DL (7-18); CALCIUM LEVEL 9.7 MG/DL (8.8-10.2); CARBON DIOXIDE LEVEL 31 MEQ/L (21-32); CHLORIDE LEVEL 103 MEQ/L (98-107); CREATININE FOR GFR 0.89 MG/DL (0.55-1.30); FERRITIN 84 NG/ML (8-252); FREE T4 0.94 NG/DL (0.76-1.46); GLOMERULAR FILTRATION RATE > 60.0 (>45); GLUCOSE, FASTING 113 MG/DL (70-100); MAGNESIUM LEVEL 2.2 MG/DL (1.8-2.4); POTASSIUM SERUM 3.7 MEQ/L (3.5-5.1); SODIUM LEVEL 142 MEQ/L (136-145); TOTAL PROTEIN 7.1 GM/DL (6.4-8.2)
== END ==
LOC: M PLALAB 08:31
PROVIDERS: ATTEND Family Medicine
DX: R73.01 Impaired fasting glucose (principal); I10 Essential (primary) hypertension; G89.4 Chronic pain syndrome; D75.89 Other specified diseases of blood and blood-forming organs; E03.9 Hypothyroidism, unspecified

== ENCOUNTER → 2021-06-25 | Outpatient (CLI) | payer MEDICARE ==
[2021-06-25 17:53] LABS: ALBUMIN 3.6 GM/DL (3.2-5.2); ALT/SGPT 17 U/L (12-78); BILIRUBIN,TOTAL 0.4 MG/DL (0.2-1.0); BLOOD UREA NITROGEN 9 MG/DL (7-18); CALCIUM LEVEL 9.6 MG/DL (8.8-10.2); CARBON DIOXIDE LEVEL 27 MEQ/L (21-32); CHLORIDE LEVEL 106 MEQ/L (98-107); GLOMERULAR FILTRATION RATE > 60.0 (>45); GLUCOSE, FASTING 90 MG/DL (70-100); NT-PRO BNP 651 PG/ML (<125); POTASSIUM SERUM 4.3 MEQ/L (3.5-5.1); SODIUM LEVEL 140 MEQ/L (136-145); TOTAL PROTEIN 6.6 GM/DL (6.4-8.2)
[2021-06-26 12:41] LABS: MAGNESIUM LEVEL 2.3 MG/DL (1.8-2.4)
== END ==
LOC: M PLALAB 13:53
PROVIDERS: ATTEND Family Medicine
DX: I10 Essential (primary) hypertension (principal)

== ENCOUNTER → 2021-07-02 | Outpatient (CLI) | payer MEDICARE ==
[~2021-07-02] MED LIST changes: -D31000TA2 PO; +VITA100093 PO
[2021-07-02 17:23] LABS: BASO # 0.1 10^3/uL (0.0-0.2); BASO % 0.7 % (0.0-1.0); EOS # 0.2 10^3/uL (0.0-0.5); EOS % 2.6 % (0.0-3.0); HEMATOCRIT 48.2 % (36.0-47.0); HEMOGLOBIN 15.6 g/dl (12.0-15.5); LYMPH # 3.1 10^3/uL (1.5-5.0); LYMPH % 42.7 % (24.0-44.0); MEAN CORPUSCULAR HEMOGLOBIN 31.4 pg (27.0-33.0); MEAN CORPUSCULAR HGB CONC 32.4 g/dl (32.0-36.5); MONO # 0.8 10^3/uL (0.0-0.8); MONO % 11.1 % (2.0-8.0); NEUTROPHILS # 3.1 10^3/uL (1.5-8.5); NEUTROPHILS % 42.6 % (36.0-66.0); PLATELET COUNT, AUTOMATED 229 10^3/uL (150-450); RED BLOOD COUNT 4.97 10^6/uL (4.00-5.40); WHITE BLOOD COUNT 7.2 10^3/uL (4.0-10.0)
[2021-07-02 17:56] LABS: ALBUMIN 3.8 GM/DL (3.2-5.2); ALT/SGPT 18 U/L (12-78); BILIRUBIN,TOTAL 0.5 MG/DL (0.2-1.0); BLOOD UREA NITROGEN 9 MG/DL (7-18); CALCIUM LEVEL 9.6 MG/DL (8.8-10.2); CARBON DIOXIDE LEVEL 27 MEQ/L (21-32); CHLORIDE LEVEL 109 MEQ/L (98-107); CREATININE FOR GFR 0.93 MG/DL (0.55-1.30); GLOMERULAR FILTRATION RATE > 60.0 (>45); GLUCOSE, FASTING 82 MG/DL (70-100); LIPASE 94 U/L (73-393); NT-PRO BNP 480 PG/ML (<125); POTASSIUM SERUM 4.2 MEQ/L (3.5-5.1); SODIUM LEVEL 144 MEQ/L (136-145); TOTAL PROTEIN 6.9 GM/DL (6.4-8.2)
== END ==
LOC: M PLALAB 15:55
PROVIDERS: ATTEND Family Medicine
DX: A08.4 Viral intestinal infection, unspecified (principal); I10 Essential (primary) hypertension

== ENCOUNTER 2021-09-19 12:09 | Emergency (ER) | payer MEDICARE ==
[~2021-09-19] VITALS: Ht 172.7 cm; Wt 93.2 kg
[2021-09-19] MEDS ORDERED: CYCL-707 PO (12:17)
[2021-09-19] MEDS ORDERED: TRAM100T21 PO (12:17)
[2021-09-19] MEDS ORDERED: ONDANSETRON 4MG/2ML VIAL IV ONE (12:50)
[2021-09-19] MEDS ORDERED: MORPHINE 4 MG/ML 1ML VIAL/SYRINGE IV ONE (12:50)
[2021-09-19 13:30] LABS: BASO # 0.1 10^3/uL (0.0-0.2); BASO % 0.7 % (0.0-1.0); EOS # 0.3 10^3/uL (0.0-0.5); EOS % 3.1 % (0.0-3.0); HEMATOCRIT 47.8 % (36.0-47.0); HEMOGLOBIN 16.1 g/dl (12.0-15.5); LYMPH # 3.4 10^3/uL (1.5-5.0); LYMPH % 39.6 % (24.0-44.0); MEAN CORPUSCULAR HEMOGLOBIN 32.1 pg (27.0-33.0); MEAN CORPUSCULAR HGB CONC 33.7 g/dl (32.0-36.5); MEAN CORPUSCULAR VOLUME 95.2 fl (80.0-96.0); MONO % 11.2 % (2.0-8.0); NEUTROPHILS # 3.9 10^3/uL (1.5-8.5); NEUTROPHILS % 45.2 % (36.0-66.0); PLATELET COUNT, AUTOMATED 251 10^3/uL (150-450); RED BLOOD COUNT 5.02 10^6/uL (4.00-5.40); WHITE BLOOD COUNT 8.5 10^3/uL (4.0-10.0)
[2021-09-19 13:53] LABS: ALBUMIN 3.8 GM/DL (3.2-5.2); ALT/SGPT 17 U/L (12-78); BILIRUBIN,DIRECT 0.2 MG/DL (0.0-0.2); BILIRUBIN,TOTAL 0.5 MG/DL (0.2-1.0); BLOOD UREA NITROGEN 11 MG/DL (7-18); CALCIUM LEVEL 9.2 MG/DL (8.8-10.2); CARBON DIOXIDE LEVEL 27 MEQ/L (21-32); CHLORIDE LEVEL 109 MEQ/L (98-107); CREATININE FOR GFR 0.98 MG/DL (0.55-1.30); GLOMERULAR FILTRATION RATE > 60.0 (>45); GLUCOSE, FASTING 98 MG/DL (70-100); LIPASE 158 U/L (73-393); POTASSIUM SERUM 4.2 MEQ/L (3.5-5.1); SODIUM LEVEL 140 MEQ/L (136-145); TOTAL PROTEIN 6.9 GM/DL (6.4-8.2)
[2021-09-19 14:06] VITALS: BP 124/86
== END 2021-09-19 14:14 | disposition home or self-care (01) ==
LOC: M ED 12:09
DX: K59.00 Constipation, unspecified (principal); N20.0 Calculus of kidney; N28.1 Cyst of kidney, acquired; I10 Essential (primary) hypertension; J44.9 Chronic obstructive pulmonary disease, unspecified; J45.909 Unspecified asthma, uncomplicated; E03.9 Hypothyroidism, unspecified; Z86.73 Personal history of transient ischemic attack (TIA), and cerebral infarction without residual deficits; Z87.19 Personal history of other diseases of the digestive system; F15.11 Other stimulant abuse, in remission; Z99.89 Dependence on other enabling machines and devices; Z88.1 Allergy status to other antibiotic agents; Z88.2 Allergy status to sulfonamides; Z88.5 Allergy status to narcotic agent; Z79.899 Other long term (current) drug therapy; Z79.01 Long term (current) use of anticoagulants; Z79.890 Hormone replacement therapy
CPT/HCPCS: 74176; 80048; 80076; 81001; 83690; 85025; 96374; 96375; 99284; J2270; J2405

== ENCOUNTER → 2021-11-01 | Outpatient (CLI) | payer MEDICARE ==
[~2021-11-01] MED LIST changes: +ACET-897 PO; +ALBU2.5V10 INH; -ALBU83IN INH; +GABA-1171 PO; +TRAM100T21 PO
== END ==
LOC: M LABSMTC 09:05
PROVIDERS: ATTEND Anesthesiology
DX: Z11.52 Encounter for screening for COVID-19 (principal); Z20.822 Contact with and (suspected) exposure to COVID-19

== ENCOUNTER 2021-11-04 06:39 | Day surgery (SDC) | payer MEDICARE ==
[~2021-11-04] VITALS: Ht 172.7 cm; Wt 93.3 kg
[~2021-11-04 06:39] MED LIST changes: +LIDOCAINE 2% 100MG/5ML SDV (FOR ANES.) As Ordered ONE; +NS 1,000 ML IV ONE; +fentaNYL 100 MCG/2 ML INJECTION As Ordered ONE; +propofoL 500 MG/50 ML VIAL As Ordered ONE
[2021-11-04 08:25] VITALS: BP 136/98
== END 2021-11-04 08:37 | disposition home or self-care (01) ==
LOC: M OPP 06:39
PROVIDERS: ATTEND Internal Medicine Gastroenterology
DX: Z12.11 Encounter for screening for malignant neoplasm of colon (principal); Z86.010 Personal history of colon polyps; D12.3 Benign neoplasm of transverse colon; K57.30 Diverticulosis of large intestine without perforation or abscess without bleeding; K64.0 First degree hemorrhoids; K22.89 Other specified disease of esophagus; K44.9 Diaphragmatic hernia without obstruction or gangrene; R12 Heartburn; E03.9 Hypothyroidism, unspecified; E11.9 Type 2 diabetes mellitus without complications; Z79.02 Long term (current) use of antithrombotics/antiplatelets; Z79.2 Long term (current) use of antibiotics; Z79.51 Long term (current) use of inhaled steroids; Z79.891 Long term (current) use of opiate analgesic; Z79.899 Other long term (current) drug therapy; Z88.2 Allergy status to sulfonamides; Z88.5 Allergy status to narcotic agent; Z88.8 Allergy status to other drugs, medicaments and biological substances; Z86.73 Personal history of transient ischemic attack (TIA), and cerebral infarction without residual deficits; Z87.19 Personal history of other diseases of the digestive system; Z87.442 Personal history of urinary calculi
CPT/HCPCS: 43239; 45385; 88305; J3010

== ENCOUNTER → 2021-12-21 | Outpatient (REF) | payer MEDICARE, OTHER ==
[~2021-12-21] MED LIST changes: -LIDOCAINE 2% 100MG/5ML SDV (FOR ANES.) As Ordered ONE; -NS 1,000 ML IV ONE; -fentaNYL 100 MCG/2 ML INJECTION As Ordered ONE; -propofoL 500 MG/50 ML VIAL As Ordered ONE
== END ==
LOC: M SFHCPLAZ 16:56
PROVIDERS: ATTEND Physician Assistant
DX: R05.1 Acute cough (principal)

== ENCOUNTER → 2021-12-22 | Outpatient (CLI) | payer MEDICARE, OTHER ==
[2021-12-22 13:31] LABS: BASO % 0.7 % (0.0-1.0); EOS # 0.1 10^3/uL (0.0-0.5); EOS % 1.8 % (0.0-3.0); HEMATOCRIT 48.4 % (36.0-47.0); HEMOGLOBIN 15.8 g/dl (12.0-15.5); LYMPH # 2.9 10^3/uL (1.5-5.0); MEAN CORPUSCULAR HEMOGLOBIN 32.2 pg (27.0-33.0); MEAN CORPUSCULAR HGB CONC 32.6 g/dl (32.0-36.5); MEAN CORPUSCULAR VOLUME 98.6 fl (80.0-96.0); MONO # 1.1 10^3/uL (0.0-0.8); MONO % 19.6 % (2.0-8.0); NEUTROPHILS # 1.5 10^3/uL (1.5-8.5); NEUTROPHILS % 26.7 % (36.0-66.0); PLATELET COUNT, AUTOMATED 217 10^3/uL (150-450); RED BLOOD COUNT 4.91 10^6/uL (4.00-5.40); WHITE BLOOD COUNT 5.6 10^3/uL (4.0-10.0)
[2021-12-22 14:28] LABS: ALBUMIN 3.5 GM/DL (3.2-5.2); ALT/SGPT 29 U/L (12-78); BILIRUBIN,TOTAL 0.2 MG/DL (0.2-1.0); BLOOD UREA NITROGEN 11 MG/DL (7-18); CALCIUM LEVEL 8.9 MG/DL (8.8-10.2); CARBON DIOXIDE LEVEL 27 MEQ/L (21-32); CHLORIDE LEVEL 109 MEQ/L (98-107); CHOLESTEROL LEVEL 134 MG/DL (<200); CHOLESTEROL RISK RATIO 2.392 (<5); CREATININE FOR GFR 0.79 MG/DL (0.55-1.30); FREE T4 0.97 NG/DL (0.76-1.46); GLOMERULAR FILTRATION RATE > 60.0 (>45); GLUCOSE, FASTING 104 MG/DL (70-100); HDL CHOLESTEROL 56 MG/DL (>40); LDL CHOLESTEROL 56 MG/DL (<100); MAGNESIUM LEVEL 2.1 MG/DL (1.8-2.4); NON-HDL-C 78 MG/DL; NT-PRO BNP 111 PG/ML (<125); POTASSIUM SERUM 4.1 MEQ/L (3.5-5.1); SODIUM LEVEL 142 MEQ/L (136-145); THYROID STIMULATING HORMONE 0.943 uIU/ML (0.358-3.740); TOTAL PROTEIN 6.6 GM/DL (6.4-8.2); TRIGLYCERIDES LEVEL 110 MG/DL (<150)
[2021-12-22 14:44] LABS: HEMOGLOBIN A1c 5.9 %
[2021-12-22 15:13] LABS: VITAMIN B12 LEVEL 423 PG/ML (247-911)
[2021-12-23 17:07] LABS: APOLIPOPROTEIN B/A-1 RATIO 0.5 ratio (0.0-0.6)
== END ==
LOC: M ADAMS 09:51
PROVIDERS: ATTEND Family Medicine
DX: R73.01 Impaired fasting glucose (principal); I10 Essential (primary) hypertension; D75.89 Other specified diseases of blood and blood-forming organs; E03.9 Hypothyroidism, unspecified; R91.8 Other nonspecific abnormal finding of lung field; R05.1 Acute cough

== ENCOUNTER → 2021-12-22 | Outpatient (CLI) | payer MEDICARE, OTHER | LOC: M ADAMS 09:54 | PROVIDERS: ATTEND Physician Assistant | DX: R91.8 Other nonspecific abnormal finding of lung field (principal); R05.1 Acute cough ==

== ENCOUNTER 2021-12-28 15:52 | Emergency (ER) | payer MEDICARE, OTHER ==
[~2021-12-28] VITALS: Ht 172.7 cm; Wt 90.9 kg
[2021-12-28 18:22] LABS: RSV AMPLIFICATION NEGATIVE (NEGATIVE)
[2021-12-28] MEDS ORDERED: NS 1,000 ML IV ONE (18:25)
[2021-12-28] MEDS ORDERED: ACETAMINOPHEN 325 MG TAB PO ONE (18:40)
[2021-12-28 18:41] LABS: BASO % 0.4 % (0.0-1.0); EOS # 0.3 10^3/uL (0.0-0.5); HEMATOCRIT 48.5 % (36.0-47.0); LYMPH # 3.9 10^3/uL (1.5-5.0); LYMPH % 50.6 % (24.0-44.0); MEAN CORPUSCULAR HEMOGLOBIN 32.6 pg (27.0-33.0); MEAN CORPUSCULAR VOLUME 98.8 fl (80.0-96.0); MONO # 1.1 10^3/uL (0.0-0.8); MONO % 13.5 % (2.0-8.0); NEUTROPHILS # 2.4 10^3/uL (1.5-8.5); NEUTROPHILS % 31.4 % (36.0-66.0); PLATELET COUNT, AUTOMATED 247 10^3/uL (150-450); RED BLOOD COUNT 4.91 10^6/uL (4.00-5.40); WHITE BLOOD COUNT 7.8 10^3/uL (4.0-10.0)
[2021-12-28 18:44] LABS: VENOUS BASE EXCESS 1.9 (-2.0-2.0); VENOUS HCO3 28.8 MEQ/L (23.0-27.0); VENOUS O2 SATURATION 56.9 % (60.0-80.0); VENOUS PARTIAL PRESSURE CO2 53.4 mmHg (38.0-50.0); VENOUS PARTIAL PRESSURE O2 29.3 mmHg (30.0-50.0); VENOUS TOTAL CO2 30.5 MEQ/L (24.0-28.0)
[2021-12-28 19:07] LABS: ALBUMIN 3.7 GM/DL (3.2-5.2); ALT/SGPT 22 U/L (12-78); BILIRUBIN,DIRECT < 0.1 MG/DL (0.0-0.2); BILIRUBIN,TOTAL 0.3 MG/DL (0.2-1.0); BLOOD UREA NITROGEN 9 MG/DL (7-18); CALCIUM LEVEL 9.5 MG/DL (8.8-10.2); CARBON DIOXIDE LEVEL 27 MEQ/L (21-32); CHLORIDE LEVEL 110 MEQ/L (98-107); CREATININE FOR GFR 0.81 MG/DL (0.55-1.30); FERRITIN 150 NG/ML (8-252); GLOMERULAR FILTRATION RATE > 60.0 (>45); GLUCOSE, FASTING 82 MG/DL (70-100); LDH LACTATE DEHYDROGENASE 156 U/L (84-246); LIPASE 116 U/L (73-393); MAGNESIUM LEVEL 2.3 MG/DL (1.8-2.4); POTASSIUM SERUM 3.7 MEQ/L (3.5-5.1); SODIUM LEVEL 140 MEQ/L (136-145); TOTAL PROTEIN 6.7 GM/DL (6.4-8.2)
[2021-12-28 19:13] LABS: INR 0.93; PARTIAL THROMBOPLASTIN TIME 27.4 SECONDS (25.9-37.0); PROTHROMBIN TIME 12.9 SECONDS (12.7-14.5)
[2021-12-28 19:25] LABS: D-DIMER QUANT 400.2 ng/ml (<500)
[2021-12-28] MEDS ORDERED: methylPREDNISolone 125MG 2ML VIAL IV PRN (19:35)
[2021-12-28] MEDS ORDERED: BEBTELOVIMAB 175MG 2ML VIAL (EUA) IV ONE (19:35)
[2021-12-28 20:39] VITALS: BP 147/95
[2021-12-28 20:44] LABS: CK-MB VALUE MASS 1.8 NG/ML (<3.6); MB/CK RELATIVE INDEX 2.95 (< OR =4)
[2021-12-28 20:50] VITALS: BP 149/90
[2021-12-28] MEDS ORDERED: NS 500 ML IV ONE (20:55)
== END 2021-12-28 22:17 | disposition home or self-care (01) ==
LOC: M ED 15:52
DX: U07.1 COVID-19 (principal); R51.9 Headache, unspecified; F33.9 Major depressive disorder, recurrent, unspecified; F41.9 Anxiety disorder, unspecified; M50.20 Other cervical disc displacement, unspecified cervical region; M51.34 Other intervertebral disc degeneration, thoracic region; M43.00 Spondylolysis, site unspecified; Z86.73 Personal history of transient ischemic attack (TIA), and cerebral infarction without residual deficits; Z88.2 Allergy status to sulfonamides; Z88.8 Allergy status to other drugs, medicaments and biological substances; Z79.899 Other long term (current) drug therapy; R94.31 Abnormal electrocardiogram [ECG] [EKG]; Z79.51 Long term (current) use of inhaled steroids
CPT/HCPCS: 71045; 80053; 82248; 82550; 82553; 82728; 82803; 83605; 83615; 83690; 83735; 84145; 84484; 85025; 85379; 85384; 85610; 85730; 86140; 87040; 87631; 93005; 96361; 96374; 99284; M0222

== ENCOUNTER → 2022-01-20 | Outpatient (REF) | payer MEDICARE, OTHER | LOC: M SFHCPLAZ 13:31 | PROVIDERS: ATTEND Physician Assistant | DX: R30.0 Dysuria (principal) ==

== ENCOUNTER → 2022-01-20 | Outpatient (CLI) | payer MEDICARE, OTHER | LOC: M WHC 11:29 | PROVIDERS: ATTEND Physician Assistant | DX: E04.1 Nontoxic single thyroid nodule (principal); R09.89 Other specified symptoms and signs involving the circulatory and respiratory systems ==

== ENCOUNTER → 2022-01-22 | Outpatient (CLI) | payer MEDICARE, OTHER ==
[2022-01-22 12:27] LABS: BASO # 0.1 10^3/uL (0.0-0.2); BASO % 0.6 % (0.0-1.0); EOS # 0.4 10^3/uL (0.0-0.5); EOS % 5.2 % (0.0-3.0); HEMATOCRIT 46.4 % (36.0-47.0); HEMOGLOBIN 15.2 g/dl (12.0-15.5); LYMPH # 2.7 10^3/uL (1.5-5.0); LYMPH % 32.8 % (24.0-44.0); MEAN CORPUSCULAR HGB CONC 32.8 g/dl (32.0-36.5); MEAN CORPUSCULAR VOLUME 100.7 fl (80.0-96.0); MONO # 0.8 10^3/uL (0.0-0.8); MONO % 10.3 % (2.0-8.0); NEUTROPHILS # 4.2 10^3/uL (1.5-8.5); PLATELET COUNT, AUTOMATED 238 10^3/uL (150-450); RED BLOOD COUNT 4.61 10^6/uL (4.00-5.40); WHITE BLOOD COUNT 8.2 10^3/uL (4.0-10.0)
[2022-01-22 12:54] LABS: ERYTHROCYTE SEDIMENTATION RATE 4 mm/hr (0-30)
[2022-01-22 13:22] LABS: ALBUMIN 3.5 GM/DL (3.2-5.2); ALT/SGPT 14 U/L (12-78); BILIRUBIN,TOTAL 0.4 MG/DL (0.2-1.0); BLOOD UREA NITROGEN 11 MG/DL (7-18); CALCIUM LEVEL 9.1 MG/DL (8.8-10.2); CARBON DIOXIDE LEVEL 29 MEQ/L (21-32); CHLORIDE LEVEL 111 MEQ/L (98-107); CREATININE FOR GFR 0.83 MG/DL (0.55-1.30); GLOMERULAR FILTRATION RATE > 60.0 (>45); GLUCOSE, FASTING 106 MG/DL (70-100); POTASSIUM SERUM 3.9 MEQ/L (3.5-5.1); SODIUM LEVEL 143 MEQ/L (136-145); TOTAL PROTEIN 6.4 GM/DL (6.4-8.2)
== END ==
LOC: M ADAMS 08:36
PROVIDERS: ATTEND Physician Assistant
DX: R11.0 Nausea (principal); R53.81 Other malaise; R50.9 Fever, unspecified

== ENCOUNTER → 2022-01-22 | Outpatient (CLI) | payer MEDICARE, OTHER ==
[~2022-01-22] MED LIST changes: +ISOVUE-370 76% 25ML SYRINGE As Ordered ONE
== END ==
LOC: M RAD 09:33
PROVIDERS: ATTEND Physician Assistant
DX: R09.89 Other specified symptoms and signs involving the circulatory and respiratory systems (principal); R11.0 Nausea; R53.81 Other malaise; R50.9 Fever, unspecified
CPT/HCPCS: 36415; 70491; 71046; 80053; 84484; 85025; 85652; 86140; 86677; Q9967

== ENCOUNTER 2022-02-01 17:38 | Emergency (ER) | payer MEDICARE, OTHER ==
[~2022-02-01] VITALS: Ht 172.7 cm; Wt 90.0 kg
[~2022-02-01 17:38] MED LIST changes: -ISOVUE-370 76% 25ML SYRINGE As Ordered ONE
[2022-02-01 17:40] VITALS: BP 130/72
[2022-02-01 18:53] LABS: BASO # 0.1 10^3/uL (0.0-0.2); BASO % 0.5 % (0.0-1.0); EOS # 0.3 10^3/uL (0.0-0.5); EOS % 2.6 % (0.0-3.0); HEMATOCRIT 49.8 % (36.0-47.0); HEMOGLOBIN 16.5 g/dl (12.0-15.5); LYMPH # 4.3 10^3/uL (1.5-5.0); LYMPH % 38.8 % (24.0-44.0); MEAN CORPUSCULAR HEMOGLOBIN 32.6 pg (27.0-33.0); MEAN CORPUSCULAR HGB CONC 33.1 g/dl (32.0-36.5); MEAN CORPUSCULAR VOLUME 98.4 fl (80.0-96.0); MONO # 1.3 10^3/uL (0.0-0.8); MONO % 11.8 % (2.0-8.0); NEUTROPHILS % 46.1 % (36.0-66.0); PLATELET COUNT, AUTOMATED 265 10^3/uL (150-450); RED BLOOD COUNT 5.06 10^6/uL (4.00-5.40)
[2022-02-01 19:26] LABS: BILIRUBIN,TOTAL 0.4 MG/DL (0.2-1.0); CALCIUM LEVEL 9.7 MG/DL (8.8-10.2); POTASSIUM SERUM 3.7 MEQ/L (3.5-5.1); TOTAL PROTEIN 7.2 GM/DL (6.4-8.2)
[2022-02-01] MEDS ORDERED: GI COCKTAIL 50ML BTL(HYOSCYAMINE/MAALOX/LIDOCAINE VISCOUS)(1:3:1) PO ONE (22:10)
[2022-02-01] MEDS ORDERED: ISOVUE-370 76% 100ML VIAL As Ordered ONE (22:20)
[2022-02-01] MEDS ORDERED: NS 1,000 ML IV ONE (23:45)
== END 2022-02-02 00:27 | disposition home or self-care (01) ==
LOC: M ED 17:38
DX: R10.13 Epigastric pain (principal); N20.0 Calculus of kidney; K21.9 Gastro-esophageal reflux disease without esophagitis; Z87.19 Personal history of other diseases of the digestive system; F15.11 Other stimulant abuse, in remission; Z88.1 Allergy status to other antibiotic agents; Z88.2 Allergy status to sulfonamides; Z88.5 Allergy status to narcotic agent; Z79.899 Other long term (current) drug therapy; Z79.01 Long term (current) use of anticoagulants; Z79.890 Hormone replacement therapy
CPT/HCPCS: 36415; 74177; 80053; 81000; 83690; 85025; 99282; Q9967

== ENCOUNTER → 2022-02-23 | Outpatient (CLI) | payer MEDICARE | LOC: M WHC 14:19 | PROVIDERS: ATTEND Family Medicine | DX: Z12.31 Encounter for screening mammogram for malignant neoplasm of breast (principal) ==

== ENCOUNTER → 2022-04-09 | Outpatient (REF) | payer MEDICARE ==
[2022-04-09 17:46] LABS: APPEARANCE, URINE MANUAL HAZY (CLEAR); BILIRUBIN, URINE MANUAL NEGATIVE (NEGATIVE); COLOR, URINE MANUAL YELLOW (YELLOW); GLUCOSE, URINE (UA) MANUAL NEGATIVE (NEGATIVE); KETONE, URINE MANUAL NEGATIVE (NEGATIVE); PROTEIN, URINE MANUAL TRACE mg/dL (NEGATIVE); UROBILINOGEN, URINE MANUAL NORMAL (NORMAL)
[2022-04-09 17:47] LABS: BLOOD URINE MANUAL POSITIVE (NEGATIVE); LEUKOCYTE ESTERASE, URINE MAN POSITIVE (NEGATIVE); NITRITE, URINE MANUAL NEGATIVE (NEGATIVE)
[2022-04-09 18:08] LABS: WBC, URINE TNTC /hpf (0-3)
[2022-04-09 18:09] LABS: BACTERIA, URINE LARGE AMOUNT; SQUAMOUS EPITHELIAL CELL URINE SMALL AMOUNT /hpf (SMALL AMT)
== END ==
LOC: M LAB REF 17:32
PROVIDERS: ATTEND Physician Assistant
DX: N39.0 Urinary tract infection, site not specified (principal)

== ENCOUNTER → 2022-04-18 | Outpatient (REF) | payer MEDICARE ==
[2022-04-18 20:19] LABS: APPEARANCE, URINE MANUAL CLEAR (CLEAR); COLOR, URINE MANUAL YELLOW (YELLOW)
[2022-04-18 20:20] LABS: BILIRUBIN, URINE MANUAL NEGATIVE (NEGATIVE); BLOOD URINE MANUAL POSITIVE (NEGATIVE); GLUCOSE, URINE (UA) MANUAL NEGATIVE (NEGATIVE); KETONE, URINE MANUAL NEGATIVE (NEGATIVE); LEUKOCYTE ESTERASE, URINE MAN NEGATIVE (NEGATIVE); NITRITE, URINE MANUAL NEGATIVE (NEGATIVE); PROTEIN, URINE MANUAL NEGATIVE (NEGATIVE); SPECIFIC GRAVITY,URINE MANUAL 1.015 (1.002-1.035); UROBILINOGEN, URINE MANUAL NORMAL (NORMAL)
[2022-04-18 20:27] LABS: BACTERIA, URINE NONE SEEN; HYALINE CAST, URINE NONE SEEN /lpf (0-1); SQUAMOUS EPITHELIAL CELL URINE SMALL AMOUNT /hpf (SMALL AMT); WBC, URINE NONE SEEN /hpf (0-3)
== END ==
LOC: M LAB REF 19:15
PROVIDERS: ATTEND Physician Assistant
DX: N39.0 Urinary tract infection, site not specified (principal)

== ENCOUNTER → 2022-04-27 | Outpatient (REF) | payer MEDICARE | LOC: M SFHCPLAZ 16:43 | PROVIDERS: ATTEND Physician Assistant | DX: R30.0 Dysuria (principal) ==

== ENCOUNTER → 2022-05-19 | Outpatient (REF) | payer MEDICARE | LOC: M SFHCPLAZ 17:09 | PROVIDERS: ATTEND Physician Assistant | DX: R30.0 Dysuria (principal) ==

== ENCOUNTER → 2022-07-15 | Outpatient (CLI) | payer MEDICARE | LOC: M RAD 17:24 | PROVIDERS: ATTEND Family Medicine | DX: R91.1 Solitary pulmonary nodule (principal); Z87.891 Personal history of nicotine dependence ==

== ENCOUNTER → 2022-08-22 | Outpatient (CLI) | payer MEDICARE ==
[2022-08-22 10:00] LABS: BASO % 0.6 % (0.0-1.0); EOS # 0.4 10^3/uL (0.0-0.5); EOS % 6.6 % (0.0-3.0); HEMATOCRIT 48.1 % (36.0-47.0); HEMATOCRIT 49.5 % (36.0-47.0); HEMOGLOBIN 15.8 g/dl (12.0-15.5); LYMPH # 2.7 10^3/uL (1.5-5.0); LYMPH % 42.3 % (24.0-44.0); MEAN CORPUSCULAR HEMOGLOBIN 31.7 pg (27.0-33.0); MEAN CORPUSCULAR HGB CONC 31.9 g/dl (32.0-36.5); MEAN CORPUSCULAR VOLUME 99.2 fl (80.0-96.0); MONO # 0.8 10^3/uL (0.0-0.8); MONO % 12.4 % (2.0-8.0); NEUTROPHILS # 2.4 10^3/uL (1.5-8.5); NEUTROPHILS % 37.9 % (36.0-66.0); PLATELET COUNT, AUTOMATED 247 10^3/uL (150-450); RED BLOOD COUNT 4.99 10^6/uL (4.00-5.40); WHITE BLOOD COUNT 6.4 10^3/uL (4.0-10.0)
[2022-08-22 10:34] LABS: ALBUMIN 3.6 G/DL (3.2-5.2); ALKALINE PHOSPHATASE 102 U/L (46-116); ALT/SGPT 10 U/L (7.0-40); AST/SGOT 14 U/L (<34); BILIRUBIN,TOTAL 0.3 MG/DL (0.3-1.2); BLOOD UREA NITROGEN 12 MG/DL (9-23); CALCIUM LEVEL 9.2 MG/DL (8.3-10.6); CARBON DIOXIDE LEVEL 30 MMOL/L (20-31); CHLORIDE LEVEL 107 MMOL/L (98-107); CREATININE FOR GFR 0.95 MG/DL (0.55-1.30); GLOMERULAR FILTRATION RATE > 60.0 (>45); GLUCOSE, FASTING 111 MG/DL (74-106); POTASSIUM SERUM 3.8 MMOL/L (3.5-5.1); SODIUM LEVEL 142 MMOL/L (136-145); TOTAL PROTEIN 6.4 G/DL (5.7-8.2)
[2022-08-22 10:36] LABS: FERRITIN 77.4 NG/ML (7.3-270.7); FREE T4 0.94 NG/DL (0.89-1.76); THYROID STIMULATING HORMONE 0.905 uIU/ML (0.55-4.78); VITAMIN B12 LEVEL 433 PG/ML (211-911)
[2022-08-22 12:34] LABS: HEMOGLOBIN A1c 5.7 % (4.0-6.0)
== END ==
LOC: M LAB 09:35
PROVIDERS: ATTEND Family Medicine
DX: R73.01 Impaired fasting glucose (principal); E53.8 Deficiency of other specified B group vitamins; I10 Essential (primary) hypertension; E03.9 Hypothyroidism, unspecified

== ENCOUNTER → 2022-09-16 | Outpatient (CLI) | payer MEDICARE | LOC: M PLAIMG 15:00 | PROVIDERS: ATTEND Physician Assistant | DX: M85.88 Other specified disorders of bone density and structure, other site (principal); M51.34 Other intervertebral disc degeneration, thoracic region; M50.321 Other cervical disc degeneration at C4-C5 level; M50.322 Other cervical disc degeneration at C5-C6 level; M50.323 Other cervical disc degeneration at C6-C7 level; W19.XXXA Unspecified fall, initial encounter ==

== ENCOUNTER → 2022-10-05 | Outpatient (CLI) | payer MEDICARE | LOC: M CARPUL 09:34 | PROVIDERS: ATTEND Family Medicine | DX: I77.810 Thoracic aortic ectasia (principal) ==

== ENCOUNTER → 2022-11-15 | Outpatient (REF) | payer MEDICARE ==
[~2022-11-15] MED LIST changes: -ROSU20TA5 PO; +ROSU20TA61 PO
== END ==
LOC: M SFHCPLAZ 18:15
PROVIDERS: ATTEND Family Medicine
DX: E03.9 Hypothyroidism, unspecified (principal); E55.9 Vitamin D deficiency, unspecified; E78.5 Hyperlipidemia, unspecified; D75.89 Other specified diseases of blood and blood-forming organs

== ENCOUNTER → 2022-11-25 | Outpatient (CLI) | payer MEDICARE ==
[~2022-11-25] MED LIST changes: +DICY-61 PO; -DICY10CA13 PO; -HM S0.65 NARES; +SALI0.6531 NARES
== END ==
LOC: M WHC 11:00
PROVIDERS: ATTEND Family Medicine
DX: M85.80 Other specified disorders of bone density and structure, unspecified site (principal)

== ENCOUNTER → 2022-12-16 | Outpatient (REF) | payer MEDICARE ==
[2022-12-16 13:23] LABS: BASO # 0.1 10^3/uL (0.0-0.2); BASO % 0.7 % (0.0-1.0); EOS # 0.4 10^3/uL (0.0-0.5); HEMATOCRIT 46.7 % (36.0-47.0); HEMOGLOBIN 15.1 g/dl (12.0-15.5); LYMPH # 2.7 10^3/uL (1.5-5.0); MEAN CORPUSCULAR HEMOGLOBIN 31.6 pg (27.0-33.0); MEAN CORPUSCULAR HGB CONC 32.3 g/dl (32.0-36.5); MEAN CORPUSCULAR VOLUME 97.7 fl (80.0-96.0); MONO # 0.8 10^3/uL (0.0-0.8); MONO % 10.1 % (2.0-8.0); NEUTROPHILS # 3.7 10^3/uL (1.5-8.5); NEUTROPHILS % 47.9 % (36.0-66.0); PLATELET COUNT, AUTOMATED 247 10^3/uL (150-450); RED BLOOD COUNT 4.78 10^6/uL (4.00-5.40); WHITE BLOOD COUNT 7.6 10^3/uL (4.0-10.0)
[2022-12-16 13:59] LABS: ALBUMIN 3.7 G/DL (3.2-5.2); ALKALINE PHOSPHATASE 110 U/L (46-116); ALT/SGPT 14 U/L (7.0-40); AST/SGOT 12 U/L (<34); BILIRUBIN,TOTAL 0.3 MG/DL (0.3-1.2); BLOOD UREA NITROGEN 18 MG/DL (9-23); CALCIUM LEVEL 9.1 MG/DL (8.3-10.6); CARBON DIOXIDE LEVEL 29 MMOL/L (20-31); CHLORIDE LEVEL 104 MMOL/L (98-107); CHOLESTEROL LEVEL 146 MG/DL (<200); CHOLESTEROL RISK RATIO 2.27 (<5); CREATININE FOR GFR 0.78 MG/DL (0.55-1.30); FREE T4 0.86 NG/DL (0.89-1.76); GLOMERULAR FILTRATION RATE > 60.0 (>45); GLUCOSE, FASTING 94 MG/DL (74-106); HDL CHOLESTEROL 64.1 MG/DL (>40); LDL CHOLESTEROL 59.9 MG/DL (<100); NON-HDL-C 81.9 MG/DL; POTASSIUM SERUM 4.7 MMOL/L (3.5-5.1); PTH INTACT 45.9 PG/ML (18.5-88.0); SODIUM LEVEL 139 MMOL/L (136-145); THYROGLOBULIN ANTIBODY < 15.0 U/ML (<60.0); THYROID PEROXIDASE ANTIBODY < 28.0 U/ML (<60.0); THYROID STIMULATING HORMONE 2.105 uIU/ML (0.55-4.78); TOTAL 25(OH) VITAMIN D 46.4 NG/ML (20.0-100.0); TOTAL PROTEIN 6.3 G/DL (5.7-8.2); TRIGLYCERIDES LEVEL 110 MG/DL (<150)
== END ==
LOC: M SFHCADAM 11:20
PROVIDERS: ATTEND Family Medicine
DX: E03.9 Hypothyroidism, unspecified (principal); E55.9 Vitamin D deficiency, unspecified; E78.5 Hyperlipidemia, unspecified; D75.89 Other specified diseases of blood and blood-forming organs

== ENCOUNTER 2023-01-25 14:00 | Outpatient (CLI) | payer MEDICARE ==
[~2023-01-25 14:00] MED LIST changes: +DIAZ-654 PO; -VALI10TA PO; +ZOLEDRONIC ACID 5 MG in IV 1 EA IV ONE
[2023-01-25 14:40] VITALS: BP 131/93; O2SAT 95
== END 2023-01-25 14:55 | disposition home or self-care (01) ==
LOC: M INFU 14:00
PROVIDERS: ATTEND Family Medicine
DX: M85.80 Other specified disorders of bone density and structure, unspecified site (principal); Z88.2 Allergy status to sulfonamides; Z88.8 Allergy status to other drugs, medicaments and biological substances
CPT/HCPCS: 96365; J3489

== ENCOUNTER → 2023-05-05 | Outpatient (REF) | payer MEDICARE ==
[~2023-05-05] MED LIST changes: -EFFE150C2 PO; +EFFE150C3 PO; +PHEN-501 PO; -ZOLEDRONIC ACID 5 MG in IV 1 EA IV ONE
[2023-05-05 18:18] LABS: APPEARANCE, URINE CLOUDY (CLEAR); BACTERIA, URINE AUTO 1+ (NEGATIVE); BILIRUBIN, URINE AUTO NEGATIVE (NEGATIVE); BLOOD, URINE BLOOD 2+ (NEGATIVE); CALCIUM OXALATE CRYSTALS SMALL; COLOR, URINE YELLOW (YELLOW); GLUCOSE, URINE (UA) AUTO NEGATIVE (NEGATIVE); KETONE, URINE AUTO NEGATIVE (NEGATIVE); LEUKOCYTE ESTERASE, URINE AUTO 3+ (NEGATIVE); MUCUS, URINE SMALL (NEGATIVE); NITRITE, URINE AUTO NEGATIVE (NEGATIVE); PROTEIN, URINE AUTO 1+ mg/dL (NEGATIVE); RBC, URINE AUTO 22 /HPF (0-3); SPECIFIC GRAVITY URINE AUTO 1.018 (1.002-1.035); SQUAMOUS EPITHELIAL CELL UR AU 0 /HPF (0-6); UROBILINOGEN, URINE AUTO 0.2 mg/dL (0.0-2.0); WBC, URINE AUTO TNTC /HPF (0-3)
== END ==
LOC: M SFHCPLAZ 17:10
PROVIDERS: ATTEND Physician Assistant Medical
DX: R30.0 Dysuria (principal)

== ENCOUNTER 2023-05-09 07:48 | Emergency (ER) | payer MEDICARE ==
[~2023-05-09] VITALS: Ht 172.7 cm; Wt 93.1 kg
[~2023-05-09 07:48] MED LIST changes: -PHEN-501 PO
[2023-05-09 08:35] LABS: BASO # 0.1 10^3/uL (0.0-0.2); BASO % 0.4 % (0.0-1.0); EOS # 0.5 10^3/uL (0.0-0.5); EOS % 3.3 % (0.0-3.0); HEMATOCRIT 46.7 % (36.0-47.0); HEMOGLOBIN 14.9 g/dl (12.0-15.5); LYMPH % 13.8 % (24.0-44.0); MEAN CORPUSCULAR HEMOGLOBIN 31.6 pg (27.0-33.0); MEAN CORPUSCULAR HGB CONC 31.9 g/dl (32.0-36.5); MEAN CORPUSCULAR VOLUME 99.2 fl (80.0-96.0); MONO % 10.9 % (2.0-8.0); NEUTROPHILS # 10.3 10^3/uL (1.5-8.5); NEUTROPHILS % 71.4 % (36.0-66.0); PLATELET COUNT, AUTOMATED 269 10^3/uL (150-450); RED BLOOD COUNT 4.71 10^6/uL (4.00-5.40); WHITE BLOOD COUNT 14.4 10^3/uL (4.0-10.0)
[2023-05-09 08:48] LABS: MONO # 1.6 10^3/uL (0.0-0.8)
[2023-05-09] MEDS ORDERED: ISOVUE-370 76% 100ML VIAL As Ordered ONE (09:11)
[2023-05-09] MEDS ORDERED: CIPROFLOXACIN 500MG TABLET PO ONE ×2 (10:45)
[2023-05-09] MEDS ORDERED: PHENAZOPYRIDINE 100 MG TAB PO ONE ×2 (10:45)
[2023-05-09] MEDS ORDERED: CIPR-249 PO (10:50)
[2023-05-09] MEDS ORDERED: PHEN-501 PO (10:50)
[2023-05-09 10:53] VITALS: BP 109/77; TEMP 96.7; O2SAT 96
== END 2023-05-09 11:11 | disposition home or self-care (01) ==
LOC: M ED 07:48
DX: N39.0 Urinary tract infection, site not specified (principal); F03.90 Unspecified dementia, unspecified severity, without behavioral disturbance, psychotic disturbance, mood disturbance, and anxiety; Z86.73 Personal history of transient ischemic attack (TIA), and cerebral infarction without residual deficits; K21.9 Gastro-esophageal reflux disease without esophagitis; Z88.2 Allergy status to sulfonamides; Z88.8 Allergy status to other drugs, medicaments and biological substances; Z88.1 Allergy status to other antibiotic agents; Z79.51 Long term (current) use of inhaled steroids; Z79.899 Other long term (current) drug therapy; F43.10 Post-traumatic stress disorder, unspecified
CPT/HCPCS: 36415; 74178; 80047; 81000; 81015; 85025; 87088; 87184; 87186; 99284; Q9967

== ENCOUNTER → 2023-05-10 | Outpatient (CLI) | payer MEDICARE ==
[~2023-05-10] MED LIST changes: +PHEN-501 PO
== END ==
LOC: M WHC 16:01
PROVIDERS: ATTEND Family Medicine
DX: Z12.39 Encounter for other screening for malignant neoplasm of breast (principal)

== ENCOUNTER → 2023-05-15 | Outpatient (CLI) | payer MEDICARE ==
[2023-05-15 13:14] LABS: BASO # 0.1 10^3/uL (0.0-0.2); BASO % 0.5 % (0.0-1.0); EOS # 0.2 10^3/uL (0.0-0.5); EOS % 1.3 % (0.0-3.0); HEMATOCRIT 47.1 % (36.0-47.0); HEMOGLOBIN 15.4 g/dl (12.0-15.5); LYMPH # 5.5 10^3/uL (1.5-5.0); LYMPH % 36.1 % (24.0-44.0); MEAN CORPUSCULAR HGB CONC 32.7 g/dl (32.0-36.5); MEAN CORPUSCULAR VOLUME 97.7 fl (80.0-96.0); MONO # 1.5 10^3/uL (0.0-0.8); MONO % 9.8 % (2.0-8.0); NEUTROPHILS # 7.9 10^3/uL (1.5-8.5); NEUTROPHILS % 51.9 % (36.0-66.0); PLATELET COUNT, AUTOMATED 273 10^3/uL (150-450); RED BLOOD COUNT 4.82 10^6/uL (4.00-5.40); WHITE BLOOD COUNT 15.2 10^3/uL (4.0-10.0)
== END ==
LOC: M LAB 12:52
PROVIDERS: ATTEND Physician Assistant
DX: D72.829 Elevated white blood cell count, unspecified (principal)

== ENCOUNTER → 2023-05-19 | Outpatient (REF) | payer MEDICARE ==
[2023-05-19 19:12] LABS: BASO # 0.1 10^3/uL (0.0-0.2); BASO % 0.6 % (0.0-1.0); EOS # 0.3 10^3/uL (0.0-0.5); EOS % 1.7 % (0.0-3.0); HEMATOCRIT 50.6 % (36.0-47.0); HEMOGLOBIN 16.3 g/dl (12.0-15.5); LYMPH # 5.2 10^3/uL (1.5-5.0); LYMPH % 36.4 % (24.0-44.0); MEAN CORPUSCULAR HEMOGLOBIN 31.6 pg (27.0-33.0); MEAN CORPUSCULAR HGB CONC 32.2 g/dl (32.0-36.5); MEAN CORPUSCULAR VOLUME 98.1 fl (80.0-96.0); MONO % 10.9 % (2.0-8.0); NEUTROPHILS # 7.2 10^3/uL (1.5-8.5); PLATELET COUNT, AUTOMATED 302 10^3/uL (150-450); RED BLOOD COUNT 5.16 10^6/uL (4.00-5.40); WHITE BLOOD COUNT 14.4 10^3/uL (4.0-10.0)
[2023-05-19 19:37] LABS: ALBUMIN 3.7 G/DL (3.2-5.2); BILIRUBIN,TOTAL 0.4 MG/DL (0.3-1.2); CREATININE FOR GFR 1.04 MG/DL (0.55-1.30); GLOMERULAR FILTRATION RATE 57.2 (>45); POTASSIUM SERUM 4.4 MMOL/L (3.5-5.1); TOTAL PROTEIN 6.7 G/DL (5.7-8.2)
[2023-05-19 20:08] LABS: MONO # 1.6 10^3/uL (0.0-0.8)
== END ==
LOC: M SFHCPLAZ 17:54
PROVIDERS: ATTEND Family Medicine
DX: R53.81 Other malaise (principal); M79.10 Myalgia, unspecified site; D72.829 Elevated white blood cell count, unspecified

== ENCOUNTER 2023-05-31 17:11 | Observation (INO) | payer MEDICARE ==
[~2023-05-31] VITALS: Ht 172.7 cm; Wt 92.5 kg
[2023-05-31 17:56] LABS: BASO % 0.4 % (0.0-1.0); EOS # 0.4 10^3/uL (0.0-0.5); EOS % 4.2 % (0.0-3.0); HEMATOCRIT 47.5 % (36.0-47.0); HEMOGLOBIN 15.9 g/dl (12.0-15.5); LYMPH # 3.6 10^3/uL (1.5-5.0); LYMPH % 38.4 % (24.0-44.0); MEAN CORPUSCULAR HEMOGLOBIN 32.1 pg (27.0-33.0); MEAN CORPUSCULAR HGB CONC 33.5 g/dl (32.0-36.5); MONO % 11.1 % (2.0-8.0); NEUTROPHILS # 4.3 10^3/uL (1.5-8.5); NEUTROPHILS % 45.7 % (36.0-66.0); PLATELET COUNT, AUTOMATED 247 10^3/uL (150-450); RED BLOOD COUNT 4.95 10^6/uL (4.00-5.40); WHITE BLOOD COUNT 9.4 10^3/uL (4.0-10.0)
[2023-05-31 18:18] LABS: ALBUMIN 3.7 G/DL (3.2-5.2); ALKALINE PHOSPHATASE 67 U/L (46-116); ALT/SGPT 18 U/L (7.0-40); AST/SGOT 19 U/L (<34); BILIRUBIN,DIRECT 0.3 MG/DL (<0.4); BILIRUBIN,TOTAL 0.4 MG/DL (0.3-1.2); BLOOD UREA NITROGEN 11 MG/DL (9-23); CALCIUM LEVEL 9.1 MG/DL (8.3-10.6); CARBON DIOXIDE LEVEL 28 MMOL/L (20-31); CHLORIDE LEVEL 110 MMOL/L (98-107); CREATININE FOR GFR 0.84 MG/DL (0.55-1.30); GLOMERULAR FILTRATION RATE > 60.0 (>45); GLUCOSE, FASTING 88 MG/DL (74-106); POTASSIUM SERUM 4.1 MMOL/L (3.5-5.1); SODIUM LEVEL 143 MMOL/L (136-145); TOTAL PROTEIN 6.6 G/DL (5.7-8.2)
[2023-05-31 18:21] LABS: THYROID STIMULATING HORMONE 3.473 uIU/ML (0.55-4.78)
[2023-05-31 18:50] LABS: RSV AMPLIFICATION NEGATIVE (NEGATIVE)
[2023-05-31] MEDS ORDERED: METOCLOPRAMIDE INJ 10MG/2ML VIAL IV ONE (19:30)
[2023-05-31] MEDS ORDERED: NS 1,000 ML IV ONE (19:30)
[2023-05-31] MEDS ORDERED: MORPHINE 4 MG/ML 1ML VIAL IV ONE (19:30)
[2023-05-31] MEDS ORDERED: ISOVUE-370 76% 100ML VIAL As Ordered ONE (19:47)
[2023-05-31] MEDS ORDERED: KETOROLAC 30 MG/ML 1ML VIAL IV ONE (23:05)
[2023-05-31] MEDS ORDERED: MECLIZINE 25 MG TABLET PO ONE (23:10)
[2023-06-01] MEDS ORDERED: SUCR1TAB56 PO (00:58)
[2023-06-01] MEDS ORDERED: PRED1TABL PO (00:58)
[2023-06-01] MEDS ORDERED: ALBU2.5V10 INH (00:58)
[2023-06-01] MEDS ORDERED: TRAZ-257 PO (00:58)
[2023-06-01] MEDS ORDERED: ONDA-83 PO (00:58)
[2023-06-01] MEDS ORDERED: TUMS500C PO (01:00)
[2023-06-01] MEDS ORDERED: MYLA1SUS PO (01:00)
[2023-06-01] MEDS ORDERED: HOME MED LIST COMPLETE! XX SCH (01:00)
[2023-06-01] MEDS ORDERED: ACETAMINOPHEN TAB 650MG DOSE (2X325MG) PO ONE (02:00)
[2023-06-01] MEDS ORDERED: MOM 30ML SUSPENSION UDC PO PRN (02:00)
[2023-06-01] MEDS ORDERED: MAALOX 30 ML SUSP *UDC PO PRN (02:00)
[2023-06-01] MEDS ORDERED: MECLIZINE 12.5 MG TAB PO PRN (02:25)
[2023-06-01 02:48] LABS: AMPHETAMINES LEVEL URINE NEGATIVE (NEGATIVE); BARBITURATES URINE NEGATIVE (NEGATIVE); CANNABINOIDS URINE NEGATIVE (NEGATIVE); COCAINE METABOLITE URINE NEGATIVE (NEGATIVE); METHADONE URINE NEGATIVE (NEGATIVE); PHENCYCLIDINE URINE NEGATIVE (NEGATIVE)
[2023-06-01 02:57] LABS: BENZODIAZEPINES URINE POSITIVE (NEGATIVE); OPIATES URINE POSITIVE (NEGATIVE)
[2023-06-01] MEDS ORDERED: NS 1,000 ML IV SCH (03:10)
[2023-06-01] MEDS ORDERED: ALBUTEROL SULFATE 2.5MG/0.5ML INH NEB SOLN INH PRN (05:35)
[2023-06-01] MEDS ORDERED: SODIUM CHLORIDE NASAL 0.65% SPRAY BTL (OCEAN) PRN (05:35)
[2023-06-01] MEDS ORDERED: methocarbamoL 500 MG TAB PO PRN (05:40)
[2023-06-01] MEDS: LEVOTHYROXINE 25MCG TABLET (0.025MG) PO SCH (05:47)
[2023-06-01] MEDS: SUCRALFATE 1 GM TAB PO SCH ×3 (07:30→17:30)
[2023-06-01] MEDS: ACETAMINOPHEN TAB 650MG DOSE (2X325MG) PO PRN ×2 (07:50→20:02)
[2023-06-01] MEDS: DOCUSATE SODIUM 100MG CAPSULE PO SCH ×2 (07:50→19:54)
[2023-06-01] MEDS: CLOPIDOGREL 75 MG TAB PO SCH (07:51)
[2023-06-01] MEDS: OMEPRAZOLE 20MG CAP PO SCH (07:51)
[2023-06-01] MEDS: FOLIC ACID 1MG TAB PO SCH (07:51)
[2023-06-01] MEDS: AUGMENTIN 875 MG TAB PO SCH ×2 (07:51→20:02)
[2023-06-01] MEDS: VITAMIN D 1,000 INTERNATIONAL UNITS TABLET PO SCH (07:51)
[2023-06-01] MEDS: CARVedilol 12.5 MG TAB PO SCH ×2 (07:52→20:03)
[2023-06-01] MEDS: ROSUVASTATIN 10 MG TAB (CRESTOR) PO SCH (07:53)
[2023-06-01] MEDS: ENOXAPARIN 40MG/0.4ML SYRINGE (J1650 PER 10MG) SC SCH (07:54)
[2023-06-01] MEDS: ONDANSETRON 4MG TAB PO PRN ×2 (07:59→22:34)
[2023-06-01] MEDS: PSEUDOEPHEDRINE 30 MG TAB PO PRN ×2 (07:59→20:30)
[2023-06-01] MEDS: FLUTICASONE PROP 0.05% NASAL SPRAY 16 GM (FLONASE) NARES SCH ×2 (09:00→20:03)
[2023-06-01] MEDS: predniSONE 1 MG TAB PO SCH (09:00)
[2023-06-01] MEDS ORDERED: KETOROLAC 30 MG/ML 1ML VIAL IV ONE (10:00)
[2023-06-01] MEDS ORDERED: MORPHINE 4 MG/ML 1ML VIAL IV ONE (15:10)
[2023-06-01 16:00] VITALS: BP 149/94; TEMP 97.9; O2SAT 97
[2023-06-01 19:27] VITALS: BP 136/97; TEMP 97.7; O2SAT 94
[2023-06-01] MEDS ORDERED: traZODone 100 MG TAB PO SCH (21:00)
[2023-06-01] MEDS: CALCIUM CARBONATE 500 MG CHEW U/D PO PRN (22:35)
[2023-06-02] MEDS: LEVOTHYROXINE 25MCG TABLET (0.025MG) PO SCH (05:31)
[2023-06-02 05:33] VITALS: BP 141/77; TEMP 97.9; O2SAT 94
[2023-06-02] MEDS: SUCRALFATE 1 GM TAB PO SCH ×2 (07:30→10:51)
[2023-06-02] MEDS: OMEPRAZOLE 20MG CAP PO SCH (08:01)
[2023-06-02] MEDS: ROSUVASTATIN 10 MG TAB (CRESTOR) PO SCH ×2 (08:01→08:05)
[2023-06-02] MEDS: AUGMENTIN 875 MG TAB PO SCH (08:02)
[2023-06-02] MEDS: VITAMIN D 1,000 INTERNATIONAL UNITS TABLET PO SCH (08:03)
[2023-06-02 08:04] VITALS: BP 129/91
[2023-06-02] MEDS: CARVedilol 12.5 MG TAB PO SCH (08:04)
[2023-06-02] MEDS: predniSONE 1 MG TAB PO SCH (08:05)
[2023-06-02] MEDS: FOLIC ACID 1MG TAB PO SCH (08:05)
[2023-06-02] MEDS: DOCUSATE SODIUM 100MG CAPSULE PO SCH (08:05)
[2023-06-02] MEDS: ENOXAPARIN 40MG/0.4ML SYRINGE (J1650 PER 10MG) SC SCH (08:06)
[2023-06-02] MEDS: CLOPIDOGREL 75 MG TAB PO SCH (08:06)
[2023-06-02] MEDS: FLUTICASONE PROP 0.05% NASAL SPRAY 16 GM (FLONASE) NARES SCH (08:06)
[2023-06-02] MEDS: CALCIUM CARBONATE 500 MG CHEW U/D PO PRN (11:05)
[2023-06-02] MEDS ORDERED: REGL5TAB2 PO (11:14)
[2023-06-02] MEDS ORDERED: AMOX875T2 PO (11:14)
== END 2023-06-02 12:04 | disposition home or self-care (01) ==
LOC: M ED 17:11 → M ED INP 17:12 → M MSPAV 06-01 16:05
PROVIDERS: ADMIT Internal Medicine; ATTEND Internal Medicine Nephrology
DX: R42 Dizziness and giddiness (principal); G43.911 Migraine, unspecified, intractable, with status migrainosus; J32.0 Chronic maxillary sinusitis; J32.2 Chronic ethmoidal sinusitis; Z87.820 Personal history of traumatic brain injury; M19.90 Unspecified osteoarthritis, unspecified site; M50.30 Other cervical disc degeneration, unspecified cervical region; I10 Essential (primary) hypertension; F41.9 Anxiety disorder, unspecified; F32.A Depression, unspecified; F43.10 Post-traumatic stress disorder, unspecified; G47.00 Insomnia, unspecified; G47.33 Obstructive sleep apnea (adult) (pediatric); E78.5 Hyperlipidemia, unspecified; E03.9 Hypothyroidism, unspecified; J30.9 Allergic rhinitis, unspecified; K44.9 Diaphragmatic hernia without obstruction or gangrene; K21.9 Gastro-esophageal reflux disease without esophagitis; K59.09 Other constipation; Q66.01 Congenital talipes equinovarus, right foot; Z79.2 Long term (current) use of antibiotics; Z79.899 Other long term (current) drug therapy; Z79.52 Long term (current) use of systemic steroids; Z88.2 Allergy status to sulfonamides; Z88.8 Allergy status to other drugs, medicaments and biological substances
CPT/HCPCS: 70450; 70496; 70498; 70551; 72125; 73030; 73060; 80047; 80048; 80076; 80307; 81001; 84443; 85025; 87086; 87486; 87581; 87631; 87633; 87798; 93005; 93041; 94760; 96361; 96374; 96375; 97161; 97530; 99285; G0378; J1885; J2765; Q9967

== ENCOUNTER → 2023-06-08 | Outpatient (REF) | payer MEDICARE ==
[~2023-06-08] MED LIST changes: +AMOX875T2 PO; +MYLA1SUS PO; +ONDA-83 PO; +PRED1TABL PO; +REGL5TAB2 PO; +SUCR1TAB56 PO; +TUMS500C PO
== END ==
LOC: M LAB REF 17:19
PROVIDERS: ATTEND Otolaryngology
DX: B37.0 Candidal stomatitis (principal)

== ENCOUNTER → 2023-06-14 | Outpatient (CLI) | payer MEDICARE | LOC: EEVIPCON 10:30 → M WHC 10:38 | PROVIDERS: ATTEND Family Medicine | DX: Z12.31 Encounter for screening mammogram for malignant neoplasm of breast (principal) ==

== ENCOUNTER → 2023-06-29 | Outpatient (REF) | payer MEDICARE | LOC: M SFHCWAGY 17:50 | PROVIDERS: ATTEND Nurse Practitioner Family | DX: Z12.4 Encounter for screening for malignant neoplasm of cervix (principal) | CPT/HCPCS: 87624; G0123 ==

== ENCOUNTER → 2023-09-22 | Outpatient (REF) | payer MEDICARE ==
[~2023-09-22] MED LIST changes: +DOXY-323 PO; -DOXY-443 PO; +FLUO-290 PO; -FLUO10CA18 PO; -ROSU40TA4; +ROSU40TA63
== END ==
LOC: M SFHCPLAZ 15:45
PROVIDERS: ATTEND Family Medicine
DX: I10 Essential (primary) hypertension (principal); E53.8 Deficiency of other specified B group vitamins; E03.9 Hypothyroidism, unspecified; R73.01 Impaired fasting glucose; E78.5 Hyperlipidemia, unspecified; E55.9 Vitamin D deficiency, unspecified

== ENCOUNTER → 2023-09-23 | Outpatient (REF) | payer MEDICARE ==
[2023-09-23 15:06] LABS: HEMATOCRIT 47.9 % (36.0-47.0)
[2023-09-23 15:15] LABS: ALBUMIN 3.7 G/DL (3.2-5.2); ALKALINE PHOSPHATASE 75 U/L (46-116); ALT/SGPT 21 U/L (7.0-40); AST/SGOT 19 U/L (<34); BILIRUBIN,TOTAL 0.3 MG/DL (0.3-1.2); BLOOD UREA NITROGEN 18 MG/DL (9-23); CALCIUM LEVEL 9.1 MG/DL (8.3-10.6); CARBON DIOXIDE LEVEL 32 MMOL/L (20-31); CHLORIDE LEVEL 105 MMOL/L (98-107); CHOLESTEROL LEVEL 171 MG/DL (<200); CHOLESTEROL RISK RATIO 2.32 (<5); CREATININE FOR GFR 0.86 MG/DL (0.55-1.30); FERRITIN 43.5 NG/ML (7.3-270.7); FREE T4 1.03 NG/DL (0.89-1.76); GLOMERULAR FILTRATION RATE > 60.0 (>45); GLUCOSE, FASTING 97 MG/DL (74-106); HDL CHOLESTEROL 73.6 MG/DL (>40); NON-HDL-C 97.4 MG/DL; PTH INTACT 58.4 PG/ML (18.5-88.0); SODIUM LEVEL 141 MMOL/L (136-145); THYROID STIMULATING HORMONE 2.936 uIU/ML (0.55-4.78); TOTAL PROTEIN 6.4 G/DL (5.7-8.2); TRIGLYCERIDES LEVEL 97 MG/DL (<150)
[2023-09-23 15:16] LABS: TOTAL 25(OH) VITAMIN D 35.7 NG/ML (20.0-100.0)
[2023-09-23 15:17] LABS: VITAMIN B12 LEVEL 399 PG/ML (211-911)
[2023-09-23 15:21] LABS: HEMOGLOBIN A1c 5.5 % (4.0-6.0)
== END ==
LOC: M SFHCADAM 08:10
PROVIDERS: ATTEND Family Medicine
DX: I10 Essential (primary) hypertension (principal); E53.8 Deficiency of other specified B group vitamins; E03.9 Hypothyroidism, unspecified; R73.01 Impaired fasting glucose; E78.5 Hyperlipidemia, unspecified; E55.9 Vitamin D deficiency, unspecified; Z86.39 Personal history of other endocrine, nutritional and metabolic disease

== ENCOUNTER → 2023-10-18 | Outpatient (CLI) | payer MEDICARE ==
[~2023-10-18] MED LIST changes: +ONDA-282 PO; -ONDA4TAB6 PO
== END ==
LOC: M PLALAB 11:48
PROVIDERS: ATTEND Physician Assistant Medical
DX: M54.12 Radiculopathy, cervical region (principal)

== ENCOUNTER → 2023-11-02 | Outpatient (CLI) | payer MEDICARE | LOC: M RAD 15:57 | PROVIDERS: ATTEND Family Medicine | DX: Z87.891 Personal history of nicotine dependence (principal) ==

== ENCOUNTER → 2023-12-07 | Outpatient (CLI) | payer MEDICARE ==
[2023-12-07 13:08] LABS: ALKALINE PHOSPHATASE 69 U/L (46-116); ALT/SGPT 17 U/L (7.0-40); AST/SGOT 12 U/L (<34); BILIRUBIN,TOTAL 0.4 MG/DL (0.3-1.2); BLOOD UREA NITROGEN 16 MG/DL (9-23); CALCIUM LEVEL 9.9 MG/DL (8.3-10.6); CARBON DIOXIDE LEVEL 30 MMOL/L (20-31); CHLORIDE LEVEL 106 MMOL/L (98-107); CK-MB VALUE MASS 1.2 NG/ML (<3.6); CPK CREATINE PHOSPHOKINASE 69 U/L (34-145); CREATININE FOR GFR 0.88 MG/DL (0.55-1.30); GLOMERULAR FILTRATION RATE > 60.0 (>45); GLUCOSE, FASTING 114 MG/DL (74-106); MB/CK RELATIVE INDEX 1.73 (< OR =4); POTASSIUM SERUM 4.7 MMOL/L (3.5-5.1); SODIUM LEVEL 141 MMOL/L (136-145); TOTAL PROTEIN 6.8 G/DL (5.7-8.2)
== END ==
LOC: M PLALAB 10:08
PROVIDERS: ATTEND Physician Assistant Medical
DX: I10 Essential (primary) hypertension (principal); R00.0 Tachycardia, unspecified; I50.32 Chronic diastolic (congestive) heart failure

== ENCOUNTER → 2023-12-20 | Outpatient (REF) | payer MEDICARE | LOC: M SFHCPLAZ 15:55 | PROVIDERS: ATTEND Family Medicine | DX: D50.9 Iron deficiency anemia, unspecified (principal); R73.01 Impaired fasting glucose; E53.8 Deficiency of other specified B group vitamins; I50.32 Chronic diastolic (congestive) heart failure ==

== ENCOUNTER → 2024-01-19 | Outpatient (CLI) | payer MEDICARE ==
[~2024-01-19] MED LIST changes: -ROSU40TA63; +ROSU40TA81
== END ==
LOC: M SOG 16:21
PROVIDERS: ATTEND Physician Assistant
DX: M79.644 Pain in right finger(s) (principal)

== ENCOUNTER 2024-01-21 09:40 | Emergency (ER) | payer MEDICARE, OTHER ==
[~2024-01-21] VITALS: Ht 172.7 cm; Wt 96.7 kg
[2024-01-21 10:46] LABS: BASO # 0.1 10^3/uL (0.0-0.2); BASO % 0.8 % (0.0-1.0); EOS # 0.5 10^3/uL (0.0-0.5); EOS % 5.6 % (0.0-3.0); HEMATOCRIT 45.8 % (36.0-47.0); HEMOGLOBIN 15.2 g/dl (12.0-15.5); LYMPH # 2.8 10^3/uL (1.5-5.0); MEAN CORPUSCULAR HEMOGLOBIN 32.8 pg (27.0-33.0); MEAN CORPUSCULAR HGB CONC 33.2 g/dl (32.0-36.5); MEAN CORPUSCULAR VOLUME 98.9 fl (80.0-96.0); MONO % 10.8 % (2.0-8.0); NEUTROPHILS # 4.6 10^3/uL (1.5-8.5); NEUTROPHILS % 51.7 % (36.0-66.0); PLATELET COUNT, AUTOMATED 258 10^3/uL (150-450); RED BLOOD COUNT 4.63 10^6/uL (4.00-5.40); WHITE BLOOD COUNT 8.9 10^3/uL (4.0-10.0)
[2024-01-21 10:51] LABS: ERYTHROCYTE SEDIMENTATION RATE 18 mm/hr (0-30)
[2024-01-21 10:58] LABS: PROTHROMBIN TIME 12.9 SECONDS (12.5-14.5)
[2024-01-21] MEDS: AMPICILLIN SOD/SULBACTAM SOD 3 GM in D5W MINI-BAG PLUS 100 ML IV ONE (11:01)
[2024-01-21] MEDS: MORPHINE 2 MG/ML 1ML VIAL IV ONE (11:01)
[2024-01-21 11:08] LABS: C REACTIVE PROTEIN QUANTITATIV < 0.40 MG/DL (<1.0)
[2024-01-21 11:10] LABS: ALBUMIN 3.6 G/DL (3.2-5.2); ALKALINE PHOSPHATASE 90 U/L (46-116); ALT/SGPT 19 U/L (7.0-40); AST/SGOT 13 U/L (<34); BILIRUBIN,DIRECT < 0.1 MG/DL (<0.4); BILIRUBIN,TOTAL 0.3 MG/DL (0.3-1.2); BLOOD UREA NITROGEN 13 MG/DL (9-23); CALCIUM LEVEL 9.3 MG/DL (8.3-10.6); CARBON DIOXIDE LEVEL 28 MMOL/L (20-31); CHLORIDE LEVEL 110 MMOL/L (98-107); CREATININE FOR GFR 0.79 MG/DL (0.55-1.30); GLOMERULAR FILTRATION RATE > 60.0 (>45); GLUCOSE, FASTING 104 MG/DL (74-106); POTASSIUM SERUM 4.2 MMOL/L (3.5-5.1); SODIUM LEVEL 142 MMOL/L (136-145); TOTAL PROTEIN 6.8 G/DL (5.7-8.2)
[2024-01-21 11:19] LABS: PROCALCITONIN 0.04 ng/ml
[2024-01-21] MEDS: ACETAMINOPHEN *IV* 1,000 MG in IV 1 EA IV ONE (12:57)
[2024-01-21] MEDS: LIDOCAINE 1% MDV 20ML VIAL SC ONE (13:51)
[2024-01-21 14:58] VITALS: BP 146/97; TEMP 97.7; O2SAT 95
== END 2024-01-21 15:00 | disposition home or self-care (01) ==
LOC: M ED 09:40
DX: L03.011 Cellulitis of right finger (principal); W54.0XXA Bitten by dog, initial encounter; Y92.9 Unspecified place or not applicable; Y93.K3 Activity, grooming and shearing an animal; Y99.9 Unspecified external cause status; J45.909 Unspecified asthma, uncomplicated; J44.9 Chronic obstructive pulmonary disease, unspecified; Z86.73 Personal history of transient ischemic attack (TIA), and cerebral infarction without residual deficits; F19.11 Other psychoactive substance abuse, in remission; Z79.899 Other long term (current) drug therapy; Z88.2 Allergy status to sulfonamides; Z88.8 Allergy status to other drugs, medicaments and biological substances
CPT/HCPCS: 80048; 80076; 83605; 84145; 85025; 85610; 85652; 85730; 86140; 87040; 87070; 87077; 96365; 96375; 99284; J0131; J0295; J0665

== ENCOUNTER → 2024-02-03 | Outpatient (CLI) | payer MEDICARE ==
[2024-02-03 14:33] LABS: APPEARANCE, URINE HAZY (CLEAR); BACTERIA, URINE AUTO NEGATIVE (NEGATIVE); BILIRUBIN, URINE AUTO NEGATIVE (NEGATIVE); BLOOD, URINE BLOOD NEGATIVE (NEGATIVE); CALCIUM OXALATE CRYSTALS MODERATE; COLOR, URINE YELLOW (YELLOW); GLUCOSE, URINE (UA) AUTO NEGATIVE (NEGATIVE); KETONE, URINE AUTO TRACE mg/dL (NEGATIVE); LEUKOCYTE ESTERASE, URINE AUTO NEGATIVE (NEGATIVE); MUCUS, URINE SMALL (NEGATIVE); NITRITE, URINE AUTO NEGATIVE (NEGATIVE); PROTEIN, URINE AUTO NEGATIVE (NEGATIVE); RBC, URINE AUTO 2 /HPF (0-3); SPECIFIC GRAVITY URINE AUTO 1.017 (1.002-1.035); SQUAMOUS EPITHELIAL CELL UR AU 0 /HPF (0-6); UROBILINOGEN, URINE AUTO 0.2 mg/dL (0.0-2.0); WBC, URINE AUTO 2 /HPF (0-3)
== END ==
LOC: M ADAMS 10:26
DX: N20.0 Calculus of kidney (principal); R39.9 Unspecified symptoms and signs involving the genitourinary system

== ENCOUNTER → 2024-02-03 | Outpatient (CLI) | payer MEDICARE | LOC: M RAD 11:43 | DX: N28.1 Cyst of kidney, acquired (principal); N20.0 Calculus of kidney ==

== ENCOUNTER → 2024-02-03 | Outpatient (REF) | payer MEDICARE ==
[2024-02-03 13:35] LABS: HEMATOCRIT 48.1 % (36.0-47.0); HEMOGLOBIN 15.5 g/dl (12.0-15.5); MEAN CORPUSCULAR HGB CONC 32.2 g/dl (32.0-36.5); MEAN CORPUSCULAR VOLUME 99.4 fl (80.0-96.0); PLATELET COUNT, AUTOMATED 254 10^3/uL (150-450); RED BLOOD COUNT 4.84 10^6/uL (4.00-5.40); WHITE BLOOD COUNT 7.3 10^3/uL (4.0-10.0)
[2024-02-03 14:09] LABS: BASO # 0.1 10^3/uL (0.0-0.2); BASO % 0.8 % (0.0-1.0); EOS # 0.5 10^3/uL (0.0-0.5); EOS % 6.7 % (0.0-3.0); LYMPH # 3.1 10^3/uL (1.5-5.0); LYMPH % 42.4 % (24.0-44.0); MONO # 0.9 10^3/uL (0.0-0.8); MONO % 12.4 % (2.0-8.0); NEUTROPHILS # 2.7 10^3/uL (1.5-8.5); NEUTROPHILS % 37.4 % (36.0-66.0)
[2024-02-03 14:26] LABS: ALKALINE PHOSPHATASE 88 U/L (46-116); ALT/SGPT 22 U/L (7.0-40); AST/SGOT 18 U/L (<34); BILIRUBIN,TOTAL 0.5 MG/DL (0.3-1.2); BLOOD UREA NITROGEN 13 MG/DL (9-23); CALCIUM LEVEL 9.7 MG/DL (8.3-10.6); CARBON DIOXIDE LEVEL 28 MMOL/L (20-31); CHLORIDE LEVEL 107 MMOL/L (98-107); CREATININE FOR GFR 0.89 MG/DL (0.55-1.30); GLOMERULAR FILTRATION RATE > 60.0 (>45); GLUCOSE, FASTING 106 MG/DL (74-106); POTASSIUM SERUM 4.2 MMOL/L (3.5-5.1); SODIUM LEVEL 139 MMOL/L (136-145)
[2024-02-03 14:28] LABS: VITAMIN B12 LEVEL 467 PG/ML (211-911)
== END ==
LOC: M SFHCADAM 10:14
DX: R39.9 Unspecified symptoms and signs involving the genitourinary system (principal); D50.9 Iron deficiency anemia, unspecified; R73.01 Impaired fasting glucose; E53.8 Deficiency of other specified B group vitamins; I50.32 Chronic diastolic (congestive) heart failure

== ENCOUNTER → 2024-02-06 | Outpatient (REF) | payer MEDICARE | LOC: M SFHCPLAZ 18:40 | PROVIDERS: ATTEND Family Medicine | DX: D50.9 Iron deficiency anemia, unspecified (principal); R73.01 Impaired fasting glucose; I50.32 Chronic diastolic (congestive) heart failure; E53.8 Deficiency of other specified B group vitamins; Z53.9 Procedure and treatment not carried out, unspecified reason ==

== ENCOUNTER → 2024-02-07 | Outpatient (CLI) | payer MEDICARE | LOC: M ADAMS 11:32 | PROVIDERS: ATTEND Family Medicine | DX: M51.34 Other intervertebral disc degeneration, thoracic region (principal); M50.221 Other cervical disc displacement at C4-C5 level; M50.222 Other cervical disc displacement at C5-C6 level; M50.223 Other cervical disc displacement at C6-C7 level; M85.88 Other specified disorders of bone density and structure, other site ==

== ENCOUNTER 2024-02-11 03:42 | Emergency (ER) | payer MEDICARE ==
[~2024-02-11] VITALS: Ht 172.7 cm; Wt 97.7 kg
[~2024-02-11 03:42] MED LIST changes: -DOXY-323 PO; +DOXY-441 PO; -ROSU20TA61 PO; +ROSU20TA86 PO
[2024-02-11 04:54] LABS: BASO # 0.1 10^3/uL (0.0-0.2); BASO % 0.5 % (0.0-1.0); EOS # 0.4 10^3/uL (0.0-0.5); EOS % 3.8 % (0.0-3.0); HEMATOCRIT 45.1 % (36.0-47.0); HEMOGLOBIN 14.9 g/dl (12.0-15.5); LYMPH # 0.9 10^3/uL (1.5-5.0); LYMPH % 9.2 % (24.0-44.0); MEAN CORPUSCULAR HEMOGLOBIN 32.7 pg (27.0-33.0); MEAN CORPUSCULAR VOLUME 98.9 fl (80.0-96.0); MONO # 1.2 10^3/uL (0.0-0.8); MONO % 12.9 % (2.0-8.0); NEUTROPHILS # 6.8 10^3/uL (1.5-8.5); NEUTROPHILS % 73.5 % (36.0-66.0); PLATELET COUNT, AUTOMATED 225 10^3/uL (150-450); RED BLOOD COUNT 4.56 10^6/uL (4.00-5.40); WHITE BLOOD COUNT 9.2 10^3/uL (4.0-10.0)
[2024-02-11 05:19] LABS: LIPASE 22 U/L (12-53)
[2024-02-11] MEDS: diphenhydrAMINE 50MG/ML VIAL IV ONE (05:19)
[2024-02-11] MEDS: NS 1,000 ML IV ONE (05:19)
[2024-02-11] MEDS: METOCLOPRAMIDE INJ 10MG/2ML VIAL IV ONE (05:20)
[2024-02-11] MEDS: KETOROLAC 30 MG/ML 1ML VIAL IV ONE (05:20)
[2024-02-11 05:21] LABS: ALBUMIN 3.6 G/DL (3.2-5.2); ALKALINE PHOSPHATASE 86 U/L (46-116); ALT/SGPT 14 U/L (7.0-40); AST/SGOT 14 U/L (<34); BILIRUBIN,DIRECT 0.1 MG/DL (<0.4); BILIRUBIN,TOTAL 0.4 MG/DL (0.3-1.2); BLOOD UREA NITROGEN 10 MG/DL (9-23); CALCIUM LEVEL 9.1 MG/DL (8.3-10.6); CARBON DIOXIDE LEVEL 26 MMOL/L (20-31); CHLORIDE LEVEL 104 MMOL/L (98-107); CREATININE FOR GFR 0.88 MG/DL (0.55-1.30); GLOMERULAR FILTRATION RATE > 60.0 (>45); GLUCOSE, FASTING 94 MG/DL (74-106); POTASSIUM SERUM 3.9 MMOL/L (3.5-5.1); SODIUM LEVEL 137 MMOL/L (136-145); TOTAL PROTEIN 6.7 G/DL (5.7-8.2)
[2024-02-11] MEDS ORDERED: ISOVUE-370 76% 100ML VIAL As Ordered ONE (05:45)
[2024-02-11] MEDS ORDERED: BUPR1FIL35 SL (09:28)
[2024-02-11] MEDS ORDERED: HOME MED LIST COMPLETE! XX SCH (09:30)
[2024-02-11 10:00] VITALS: BP 121/81; TEMP 100.1; O2SAT 96
[2024-02-11] MEDS: BUPRENORPHINE/NALOXONE 2-0.5MG SUBLINGUAL TABLET(SUBOXONE) SL SCH (10:01)
== END 2024-02-11 10:11 | disposition home or self-care (01) ==
LOC: M ED 03:42
DX: U07.1 COVID-19 (principal); Z88.2 Allergy status to sulfonamides; Z88.8 Allergy status to other drugs, medicaments and biological substances; F19.10 Other psychoactive substance abuse, uncomplicated; Z87.442 Personal history of urinary calculi; Z87.891 Personal history of nicotine dependence; R91.1 Solitary pulmonary nodule; K76.0 Fatty (change of) liver, not elsewhere classified; N20.0 Calculus of kidney
CPT/HCPCS: 74177; 80048; 80076; 81001; 83605; 83690; 85025; 87086; 93005; 93041; 96361; 96374; 96375; 99285; J1200; J1885; J2765; Q9967

== ENCOUNTER → 2024-02-22 | Outpatient (REF) | payer MEDICARE ==
[~2024-02-22] MED LIST changes: +BUPR1FIL35 SL
[2024-02-22 18:00] LABS: APPEARANCE, URINE CLOUDY (CLEAR); BACTERIA, URINE AUTO NEGATIVE (NEGATIVE); BILIRUBIN, URINE AUTO NEGATIVE (NEGATIVE); BLOOD, URINE BLOOD 2+ (NEGATIVE); CALCIUM OXALATE CRYSTALS LARGE; COLOR, URINE YELLOW (YELLOW); GLUCOSE, URINE (UA) AUTO NEGATIVE (NEGATIVE); KETONE, URINE AUTO NEGATIVE (NEGATIVE); LEUKOCYTE ESTERASE, URINE AUTO 3+ (NEGATIVE); NITRITE, URINE AUTO NEGATIVE (NEGATIVE); PROTEIN, URINE AUTO 1+ mg/dL (NEGATIVE); RBC, URINE AUTO 3 /HPF (0-3); SPECIFIC GRAVITY URINE AUTO 1.015 (1.002-1.035); SQUAMOUS EPITHELIAL CELL UR AU 0 /HPF (0-6); UROBILINOGEN, URINE AUTO 0.2 mg/dL (0.0-2.0); WBC, URINE AUTO TNTC /HPF (0-3)
== END ==
LOC: M SFHCPLAZ 11:03
DX: N39.0 Urinary tract infection, site not specified (principal)

== ENCOUNTER → 2024-02-24 | Outpatient (CLI) | payer MEDICARE | LOC: M RAD 09:46 | DX: R91.1 Solitary pulmonary nodule (principal); Z53.9 Procedure and treatment not carried out, unspecified reason ==

== ENCOUNTER → 2024-02-28 | Outpatient (CLI) | payer MEDICARE | LOC: M RAD 16:21 | DX: R91.1 Solitary pulmonary nodule (principal); Z53.9 Procedure and treatment not carried out, unspecified reason ==

== ENCOUNTER → 2024-02-29 | Outpatient (CLI) | payer MEDICARE ==
[~2024-02-29] MED LIST changes: +GASTROGRAFIN SOLUTION 30ML As Ordered ONE; +ISOVUE-370 76% 100ML VIAL As Ordered ONE
== END ==
LOC: M RAD 17:10
DX: J98.11 Atelectasis (principal); R91.1 Solitary pulmonary nodule; K57.90 Diverticulosis of intestine, part unspecified, without perforation or abscess without bleeding
CPT/HCPCS: 71260; 74177; Q9963; Q9967

== ENCOUNTER → 2024-03-06 | Outpatient (REF) | payer MEDICARE ==
[~2024-03-06] MED LIST changes: -GASTROGRAFIN SOLUTION 30ML As Ordered ONE; -ISOVUE-370 76% 100ML VIAL As Ordered ONE; -LEVO750T14 PO; +LEVO75TAB PO
[2024-03-06 17:56] LABS: APPEARANCE, URINE CLEAR (CLEAR); BACTERIA, URINE AUTO NEGATIVE (NEGATIVE); BILIRUBIN, URINE AUTO NEGATIVE (NEGATIVE); BLOOD, URINE BLOOD NEGATIVE (NEGATIVE); COLOR, URINE YELLOW (YELLOW); GLUCOSE, URINE (UA) AUTO NEGATIVE (NEGATIVE); KETONE, URINE AUTO NEGATIVE (NEGATIVE); LEUKOCYTE ESTERASE, URINE AUTO NEGATIVE (NEGATIVE); MUCUS, URINE SMALL (NEGATIVE); NITRITE, URINE AUTO NEGATIVE (NEGATIVE); PROTEIN, URINE AUTO NEGATIVE (NEGATIVE); RBC, URINE AUTO 0 /HPF (0-3); SPECIFIC GRAVITY URINE AUTO 1.018 (1.002-1.035); SQUAMOUS EPITHELIAL CELL UR AU 1 /HPF (0-6); UROBILINOGEN, URINE AUTO 0.2 mg/dL (0.0-2.0); WBC, URINE AUTO 0 /HPF (0-3)
== END ==
LOC: M SFHCPLAZ 15:07
DX: N39.0 Urinary tract infection, site not specified (principal)

== ENCOUNTER → 2024-03-19 | Outpatient (CLI) | payer MEDICARE ==
[~2024-03-19] MED LIST changes: +LEVO750T14 PO; -LEVO75TAB PO
== END ==
LOC: M PLARAD 10:46
DX: R91.1 Solitary pulmonary nodule (principal)
CPT/HCPCS: 78815; A9552

== ENCOUNTER → 2024-06-20 | Outpatient (REF) | payer MEDICARE ==
[~2024-06-20] MED LIST changes: -LEVO750T14 PO; +LEVO75TAB PO
[2024-06-20 18:48] LABS: FERRITIN 44.2 NG/ML (7.3-270.7)
[2024-06-20 18:50] LABS: ALBUMIN 3.6 G/DL (3.2-5.2); ALKALINE PHOSPHATASE 88 U/L (35-104); ALT/SGPT 14 U/L (7.0-40); AST/SGOT 15 U/L (<34); BILIRUBIN,TOTAL 0.4 MG/DL (0.3-1.2); BLOOD UREA NITROGEN 15 MG/DL (9-23); CALCIUM LEVEL 9.4 MG/DL (8.3-10.6); CARBON DIOXIDE LEVEL 30 MMOL/L (20-31); CHLORIDE LEVEL 107 MMOL/L (98-107); CREATININE FOR GFR 0.87 MG/DL (0.55-1.30); GLOMERULAR FILTRATION RATE > 60.0 (>45); GLUCOSE, FASTING 103 MG/DL (74-106); MAGNESIUM LEVEL 2.2 MG/DL (1.8-2.4); POTASSIUM SERUM 3.9 MMOL/L (3.5-5.1); SODIUM LEVEL 146 MMOL/L (136-145); TOTAL PROTEIN 6.8 G/DL (5.7-8.2)
[2024-06-20 19:05] LABS: BASO # 0.1 10^3/uL (0.0-0.2); BASO % 0.6 % (0.0-1.0); EOS # 0.5 10^3/uL (0.0-0.5); EOS % 6.2 % (0.0-3.0); HEMATOCRIT 48.3 % (36.0-47.0); HEMOGLOBIN 15.5 g/dl (12.0-15.5); LYMPH # 3.1 10^3/uL (1.5-5.0); LYMPH % 36.6 % (24.0-44.0); MEAN CORPUSCULAR HEMOGLOBIN 31.7 pg (27.0-33.0); MEAN CORPUSCULAR HGB CONC 32.1 g/dl (32.0-36.5); MEAN CORPUSCULAR VOLUME 98.8 fl (80.0-96.0); MONO % 11.4 % (2.0-8.0); NEUTROPHILS # 3.8 10^3/uL (1.5-8.5); NEUTROPHILS % 45.1 % (36.0-66.0); PLATELET COUNT, AUTOMATED 252 10^3/uL (150-450); RED BLOOD COUNT 4.89 10^6/uL (4.00-5.40); WHITE BLOOD COUNT 8.4 10^3/uL (4.0-10.0)
[2024-06-20 19:50] LABS: HEMATOCRIT 47.3 % (36.0-47.0)
== END ==
LOC: M LABDRWAD 17:17
PROVIDERS: ATTEND Family Medicine
DX: D50.9 Iron deficiency anemia, unspecified (principal); R73.01 Impaired fasting glucose; I50.32 Chronic diastolic (congestive) heart failure; E53.8 Deficiency of other specified B group vitamins

== ENCOUNTER → 2024-06-26 | Outpatient (CLI) | payer MEDICARE | LOC: M ADAMS 13:30 | PROVIDERS: ATTEND Family Medicine | DX: J32.9 Chronic sinusitis, unspecified (principal) ==

== ENCOUNTER → 2024-07-13 | Outpatient (CLI) | payer MEDICARE ==
[~2024-07-13] MED LIST changes: +ISOVUE-370 76% 100ML VIAL ONE
== END ==
LOC: M PLAIMG 08:01
PROVIDERS: ATTEND Family Medicine
DX: R91.8 Other nonspecific abnormal finding of lung field (principal); J98.11 Atelectasis; K44.9 Diaphragmatic hernia without obstruction or gangrene; I51.7 Cardiomegaly; N28.1 Cyst of kidney, acquired
CPT/HCPCS: 71260; Q9967

== ENCOUNTER → 2024-09-18 | Outpatient (CLI) | payer MEDICARE ==
[~2024-09-18] MED LIST changes: -ISOVUE-370 76% 100ML VIAL ONE; +PRED-1142 PO; -PRED1TABL PO
[2024-09-18 10:56] LABS: HEMATOCRIT 48.6 % (36.0-47.0)
[2024-09-18 10:59] LABS: BASO # 0.1 10^3/uL (0.0-0.2); BASO % 0.7 % (0.0-1.0); EOS # 0.6 10^3/uL (0.0-0.5); EOS % 7.9 % (0.0-3.0); HEMATOCRIT 48.5 % (36.0-47.0); HEMOGLOBIN 15.8 g/dl (12.0-15.5); LYMPH # 2.5 10^3/uL (1.5-5.0); LYMPH % 35.7 % (24.0-44.0); MEAN CORPUSCULAR HEMOGLOBIN 32.1 pg (27.0-33.0); MEAN CORPUSCULAR HGB CONC 32.6 g/dl (32.0-36.5); MEAN CORPUSCULAR VOLUME 98.6 fl (80.0-96.0); MONO # 0.9 10^3/uL (0.0-0.8); MONO % 12.6 % (2.0-8.0); PLATELET COUNT, AUTOMATED 242 10^3/uL (150-450); RED BLOOD COUNT 4.92 10^6/uL (4.00-5.40); WHITE BLOOD COUNT 7.1 10^3/uL (4.0-10.0)
[2024-09-18 11:14] LABS: HEMOGLOBIN A1c 5.9 % (4.0-6.0)
[2024-09-18 11:15] LABS: FERRITIN 47.3 NG/ML (7.3-270.7); THYROID STIMULATING HORMONE 1.467 uIU/ML (0.55-4.78)
[2024-09-18 11:19] LABS: FREE T4 1.15 NG/DL (0.89-1.76)
[2024-09-18 11:20] LABS: ALBUMIN 3.7 G/DL (3.2-5.2); BILIRUBIN,TOTAL 0.5 MG/DL (0.3-1.2); CALCIUM LEVEL 9.3 MG/DL (8.3-10.6); CHOLESTEROL RISK RATIO 2.33 (<5); CREATININE FOR GFR 0.83 MG/DL (0.55-1.30); GLOMERULAR FILTRATION RATE 78.7 (>45); HDL CHOLESTEROL 63.4 MG/DL (>40); LDL CHOLESTEROL 65.2 MG/DL (<100); MAGNESIUM LEVEL 2.1 MG/DL (1.8-2.4); NON-HDL-C 84.6 MG/DL; POTASSIUM SERUM 4.6 MMOL/L (3.5-5.1); TOTAL PROTEIN 6.8 G/DL (5.7-8.2)
== END ==
LOC: M PLALAB 09:10
PROVIDERS: ATTEND Family Medicine
DX: R73.01 Impaired fasting glucose (principal); D50.9 Iron deficiency anemia, unspecified; I50.32 Chronic diastolic (congestive) heart failure; E53.8 Deficiency of other specified B group vitamins; E78.5 Hyperlipidemia, unspecified; E03.9 Hypothyroidism, unspecified

== ENCOUNTER → 2024-09-20 | Outpatient (CLI) | payer MEDICARE ==
[~2024-09-20] MED LIST changes: +LIDO1ADH93 TD; -LIDO5DIS41 TD
[2024-09-20 15:52] LABS: BASO # 0.1 10^3/uL (0.0-0.2); BASO % 0.7 % (0.0-1.0); EOS # 0.6 10^3/uL (0.0-0.5); EOS % 7.7 % (0.0-3.0); HEMATOCRIT 47.9 % (36.0-47.0); HEMOGLOBIN 15.2 g/dl (12.0-15.5); LYMPH # 3.8 10^3/uL (1.5-5.0); LYMPH % 45.8 % (24.0-44.0); MEAN CORPUSCULAR HEMOGLOBIN 31.5 pg (27.0-33.0); MEAN CORPUSCULAR HGB CONC 31.7 g/dl (32.0-36.5); MEAN CORPUSCULAR VOLUME 99.2 fl (80.0-96.0); MONO % 11.8 % (2.0-8.0); NEUTROPHILS # 2.8 10^3/uL (1.5-8.5); NEUTROPHILS % 33.9 % (36.0-66.0); PLATELET COUNT, AUTOMATED 241 10^3/uL (150-450); RED BLOOD COUNT 4.83 10^6/uL (4.00-5.40); WHITE BLOOD COUNT 8.2 10^3/uL (4.0-10.0)
[2024-09-20 15:57] LABS: ERYTHROCYTE SEDIMENTATION RATE 19 mm/hr (0-30)
[2024-09-20 16:00] LABS: C REACTIVE PROTEIN QUANTITATIV < 0.50 MG/DL (<1.0); RHEUMATOID FACTOR QUANT 10.1 IU/ML (<14)
[2024-09-24 15:52] LABS: ANA PATTERN Nuclear, Homogeneous (NEGATIVE); ANA SCREEN, IFA POSITIVE (NEGATIVE); ANA TITER 1:40 titer (<1:40)
== END ==
LOC: M PLALAB 12:59
PROVIDERS: ATTEND Physician Assistant
DX: M25.50 Pain in unspecified joint (principal)

== ENCOUNTER → 2025-02-26 | Outpatient (CLI) | payer MEDICARE ==
[2025-02-26 14:27] LABS: BASO # 0.1 10^3/uL (0.0-0.2); BASO % 0.6 % (0.0-1.0); EOS # 0.5 10^3/uL (0.0-0.5); EOS % 6.2 % (0.0-3.0); LYMPH # 3.1 10^3/uL (1.5-5.0); LYMPH % 35.7 % (24.0-44.0); MONO # 0.9 10^3/uL (0.0-0.8); MONO % 10.9 % (2.0-8.0); NEUTROPHILS # 4.0 10^3/uL (1.5-8.5); NEUTROPHILS % 46.4 % (36.0-66.0); PLATELET COUNT, AUTOMATED 265 10^3/uL (150-450)
[2025-02-26 14:35] LABS: ALT/SGPT 15.0 U/L (7.0-40); AST/SGOT 17.0 U/L (<34); CALCIUM LEVEL 9.5 MG/DL (8.3-10.6); CARBON DIOXIDE LEVEL 30.0 MMOL/L (20-31); CHLORIDE LEVEL 106.0 MMOL/L (98-107); CHOLESTEROL LEVEL 158.0 MG/DL (<200); CHOLESTEROL RISK RATIO 2.29 (<5); CREATININE FOR GFR 0.81 MG/DL (0.55-1.30); GLOMERULAR FILTRATION RATE 81.0 (>45); LDL CHOLESTEROL 64.3 MG/DL (<100); MAGNESIUM LEVEL 2.0 MG/DL (1.8-2.4); NON-HDL-C 89.3 MG/DL; POTASSIUM SERUM 4.4 MMOL/L (3.5-5.1); SODIUM LEVEL 146.0 MMOL/L (136-145); TRIGLYCERIDES LEVEL 125.0 MG/DL (<150)
[2025-02-26 14:36] LABS: FREE T4 1.11 NG/DL (0.89-1.76)
[2025-02-26 14:57] LABS: ESTIMATED AVERAGE GLUCOSE 126.0 MG/DL (60-110)
== END ==
LOC: M LABDRWAD 07:53
PROVIDERS: ATTEND Family Medicine
DX: I50.32 Chronic diastolic (congestive) heart failure (principal); D50.9 Iron deficiency anemia, unspecified; R73.01 Impaired fasting glucose; E03.9 Hypothyroidism, unspecified; E78.5 Hyperlipidemia, unspecified

== ENCOUNTER → 2025-03-05 | Outpatient (CLI) | payer MEDICARE | LOC: M PLAIMG 16:10 | PROVIDERS: ATTEND Family Medicine | DX: J44.9 Chronic obstructive pulmonary disease, unspecified (principal) ==

== ENCOUNTER → 2025-03-20 | Outpatient (REF) | payer MEDICARE ==
[2025-03-20 18:05] LABS: APPEARANCE, URINE HAZY (CLEAR); BACTERIA, URINE AUTO NEGATIVE (NEGATIVE); BILIRUBIN, URINE AUTO NEGATIVE (NEGATIVE); BLOOD, URINE BLOOD NEGATIVE (NEGATIVE); CALCIUM OXALATE CRYSTALS LARGE; GLUCOSE, URINE (UA) AUTO NEGATIVE (NEGATIVE); KETONE, URINE AUTO NEGATIVE (NEGATIVE); LEUKOCYTE ESTERASE, URINE AUTO NEGATIVE (NEGATIVE); MUCUS, URINE SMALL (NEGATIVE); NITRITE, URINE AUTO NEGATIVE (NEGATIVE); PROTEIN, URINE AUTO NEGATIVE (NEGATIVE); RBC, URINE AUTO 2 /HPF (0-3); SPECIFIC GRAVITY URINE AUTO 1.021 (1.002-1.035); SQUAMOUS EPITHELIAL CELL UR AU 1 /HPF (0-6); UROBILINOGEN, URINE AUTO 2.0 mg/dL (0.0-2.0); WBC, URINE AUTO 1 /HPF (0-3)
== END ==
LOC: M SFHCPLAZ 11:52
PROVIDERS: ATTEND Family Medicine
DX: R30.0 Dysuria (principal)

== ENCOUNTER → 2025-03-29 | Outpatient (REF) | payer MEDICARE ==
[2025-03-29 17:26] LABS: APPEARANCE, URINE CLEAR (CLEAR); BACTERIA, URINE AUTO NEGATIVE (NEGATIVE); BILIRUBIN, URINE AUTO NEGATIVE (NEGATIVE); BLOOD, URINE BLOOD NEGATIVE (NEGATIVE); GLUCOSE, URINE (UA) AUTO NEGATIVE (NEGATIVE); KETONE, URINE AUTO NEGATIVE (NEGATIVE); LEUKOCYTE ESTERASE, URINE AUTO NEGATIVE (NEGATIVE); MUCUS, URINE SMALL (NEGATIVE); NITRITE, URINE AUTO NEGATIVE (NEGATIVE); PROTEIN, URINE AUTO NEGATIVE (NEGATIVE); RBC, URINE AUTO 1 /HPF (0-3); SPECIFIC GRAVITY URINE AUTO 1.021 (1.002-1.035); SQUAMOUS EPITHELIAL CELL UR AU 0 /HPF (0-6); UROBILINOGEN, URINE AUTO 0.2 mg/dL (0.0-2.0); WBC, URINE AUTO 1 /HPF (0-3)
== END ==
LOC: M SFHCPLAZ 16:52
DX: N39.0 Urinary tract infection, site not specified (principal)